=== PATIENT | male | born 1950 ===

== ENCOUNTER → 2016-05-22 | Outpatient (CLI) | payer MEDICARE, OTHER | END | disposition home or self-care (01) | LOC: LABWHC1 12:30 | PROVIDERS: ATTEND Internal Medicine Infectious Disease | DX: Z20.1 Contact with and (suspected) exposure to tuberculosis (principal) | CPT/HCPCS: 36415; 86480 ==

== ENCOUNTER 2019-04-18 20:10 | Inpatient (IN) | payer MEDICARE, OTHER ==
[2019-04-18] MEDS: SODIUM CHLORIDE 0.9% 1,000 ML IV SCH (23:23)
[2019-04-18] MEDS: HEPARIN SODIUM,PORCINE 5,000 UNIT/ML 1 ML VIAL SQ SCH (23:25)
[2019-04-19] MEDS: ATORVASTATIN 10 MG TAB PO SCH (09:16)
[2019-04-19] MEDS: busPIRone HCl 10 MG TAB PO SCH ×2 (09:16→23:49)
[2019-04-19] MEDS: CLOPIDOGREL 75 MG TAB PO SCH (09:16)
[2019-04-19] MEDS: HEPARIN SODIUM,PORCINE 5,000 UNIT/ML 1 ML VIAL SQ SCH ×2 (09:17→17:12)
[2019-04-19 09:25] VITALS: BMI 14.3
[2019-04-19 09:26] LABS: Basophils % (A) 0 %; Eosinophils # (A) 0.1 k/uL (0-0.7); Eosinophils % (A) 2 %; HCT 36.7 % (39.0-53.0); HGB 11.6 gm/dL (13.0-17.5); Lymphocytes % (A) 14 %; MCH 30.1 pg (25.0-35.0); MCHC 31.8 g/dL (31.0-37.0); MCV 94.9 fL (80.0-100.0); Mean Platelet Volume 7.1; Monocytes # (A) 0.4 k/uL (0-1.0); Monocytes % (A) 5 %; Neutrophils # (A) 5.6 k/uL (1.3-7.7); Neutrophils % (A) 78 %; Platelet Count 234 k/uL (150-450); RBC 3.87 m/uL (4.30-5.90); RDW 14.3 % (11.5-15.5); WBC 7.2 k/uL (3.8-10.6)
[2019-04-19] MEDS: OLANZapine 10 MG TAB PO SCH (09:30)
[2019-04-19] MEDS: FLUoxetine HCL 20 MG CAP PO SCH (09:31)
[2019-04-19 09:32] LABS: Albumin 3.2 g/dL (3.5-5.0); Calcium 9.1 mg/dL (8.4-10.2); Potassium 4.5 mmol/L (3.5-5.1); Total Bilirubin 0.7 mg/dL (0.2-1.3); Total Protein 6.4 g/dL (6.3-8.2)
[2019-04-19] MEDS: ATENOLOL 25 MG TAB PO SCH (09:35)
[2019-04-19] MEDS: SODIUM CHLORIDE 0.9% 1,000 ML IV SCH (12:16)
--- NOTE | 2019-04-19 15:39 | XR ---
EXAMINATION TYPE: XR chest 1V portable DATE OF EXAM: 04/19/2019 COMPARISON: None INDICATION: Congestion and weakness TECHNIQUE: Single frontal view of the chest is obtained. FINDINGS: The heart size is normal. There is a patchy right lower lobe infiltrate. Minimal infiltrate is present at the left base. IMPRESSION: 1. Bibasilar infiltrates. Correlate for atelectasis or pneumonia. Follow-up exams can be performed as clinically indicated.
--- NOTE | 2019-04-19 16:27 | US ---
EXAMINATION TYPE: US extremity nonvasc mass RT DATE OF EXAM: 04/19/2019 COMPARISON: NONE CLINICAL HISTORY: Right knee US. Poor historian. Anterior right knee palpable with redness. Area of concern scanned. Cystic appearing lesion with internal debris visualized, nonvascular with i nflammation seen- 2.0 x 2.1 x 0.7 cm IMPRESSION: 1. Soft tissue abnormality within the deep tissues. This appears non walled and could be phlegmon. D iscrete abscess is not identified.
[2019-04-19] MEDS ORDERED: IPRATROPIUM-ALBUTEROL 3 ML NEB INHALATION PRN (17:14)
[2019-04-19] MEDS ORDERED: VANCOMYCIN IV PER PHARMACY 1 EACH MISC MISCELLANE PRN (17:14)
[2019-04-19] MEDS ORDERED: ACETAMINOPHEN TAB 500 MG TAB PO PRN (17:15)
[2019-04-19] MEDS ORDERED: VANCOMYCIN 750 MG in SODIUM CHLORIDE 0.9% 250 ML IVPB ONE (18:00)
[2019-04-19] MEDS: PIPERACILLIN-TAZOBACTAM 3.375 GM in SODIUM CHLORIDE 0.9% 100 ML IVPB SCH (18:29)
[2019-04-19] MEDS: IPRATROPIUM-ALBUTEROL 3 ML NEB INHALATION SCH (20:26)
--- NOTE | 2019-04-19 22:03 | HP ---
HISTORY AND PHYSICAL DATE OF SERVICE: 04/19/2019 CHIEF COMPLAINTS: Weakness as well as change in mental status. HISTORY OF PRESENT ILLNESS: This 68-year-old gentleman with a past medical history of multiple medical problems, including hyperlipidemia and hypertension, being followed by a physician in the [facility], was living in the [facility]. The patient was apparently becoming progressively weak and confused, unable to eat anything, and because of increased symptoms and change in mental status the patient was taken to [facility]. From the [facility] the patient was referred to [facility] as a direct admission. He was admitted for evaluation and treatment. The patient was able to give only a sketchy history. Most of the history was taken from my discussion with staff and review of the chart at this time. The patient does have a skin lesion on the right leg with some right swelling also. Chest x-ray showed bibasilar pneumonia. The ultrasound showed some soft tissue abnormality. Otherwise, some phlegmon and no abscess and no DVT. There is no history of any fever, rigor or chills at this time. PAST MEDICAL HISTORY: 1. History of hypertension. 2. History of hyperlipidemia. 3. History of possible depression. HOME MEDICATIONS: 1. BuSpar 15 mg p.o. b.i.d. 2. Zocor 20 mg p.o. daily. 3. Potassium chloride 10 mEq p.o. daily. 4. Zyprexa 20 mg p.o. daily. 5. Prozac 20 mg p.o. daily. 6. Plavix 75 mg p.o. daily. 7. Tenormin 25 mg p.o. daily. ALLERGIES: NONE. Family history, social history, review of systems could not be taken because of the patient's change in mental status. PHYSICAL EXAMINATION: Patient is conscious, confused. Pulse 61, blood pressure 131/73, respirations 16, temperature 97.4, pulse ox 94% on room air. HEENT: Conjunctivae normal. Oral mucosa moist. NECK: No jugular venous distention. No carotid bruit. No lymph node enlargement. CARDIOVASCULAR SYSTEM: S1, S2 muffled. No S3. No S4. RESPIRATORY SYSTEM: Breath sounds diminished at the bases. A few scattered rhonchi and crackles. Basal crackles also present. ABDOMEN: Soft, non-tender, scaphoid. No mass palpable. LEGS: No edema. No swelling. L NERVOUS SYSTEM: Higher functions as mentioned earlier. Moves all 4 limbs. Mild diffuse weakness. LYMPHATICS: No lymph node palpable in neck, axillae or groin. SKIN: No ulcer, rash, bleeding. JOINTS: No active deforming arthropathy. LABS: Labs at this time show WBC 7.2, hemoglobin 11.6, sodium 144, potassium 4.5, creatinine 1.38. ASSESSMENT: 1. Bibasilar pneumonia, possibly Gram-negative, with possible sepsis, present on admission. 2. Change in mental status, acute metabolic encephalopathy secondary to sepsis. 3. Possible dehydration. 4. Gait dysfunction. 5. Possible cellulitis of the right leg. 6. Severe protein-calorie malnutrition with a body mass index of 14.3. 7. Anemia, normocytic, possibly nutritional. 8. Increased creatinine with possibly acute renal failure, prerenal renal factors, acute tubular necrosis. 9. History of bipolar. RECOMMENDATIONS AND DISCUSSION: In this 68-year-old gentleman who presented with multiple complex medical issues, we will monitor the patient closely, continue the current medications, continue symptomatic treatment. Resume the home medications. I would also recommend broad- spectrum IV antibiotics. Will obtain cultures. I would recommend broad-spectrum IV antibiotics with a combination Zosyn and vancomycin and continue to monitor. PT/OT evaluation, possible ECF rehab. DVT prophylaxis. See orders for further details. Guarded prognosis. Further recommendations to follow. Will monitor electrolyte as well. MMODL / IJN: [id number] /
[2019-04-20] MEDS: HEPARIN SODIUM,PORCINE 5,000 UNIT/ML 1 ML VIAL SQ SCH ×3 (03:11→16:01)
[2019-04-20] MEDS: PIPERACILLIN-TAZOBACTAM 3.375 GM in SODIUM CHLORIDE 0.9% 100 ML IVPB SCH ×2 (03:13→10:35)
[2019-04-20] MEDS: SODIUM CHLORIDE 0.9% 1,000 ML IV SCH ×2 (03:14→16:01)
[2019-04-20] MEDS: VANCOMYCIN 750 MG in SODIUM CHLORIDE 0.9% 250 ML IVPB SCH (06:30)
[2019-04-20] MEDS: IPRATROPIUM-ALBUTEROL 3 ML NEB INHALATION SCH ×3 (07:04→19:37)
[2019-04-20 08:29] LABS: Basophils % (A) 0 %; Eosinophils # (A) 0.1 k/uL (0-0.7); Eosinophils % (A) 1 %; HCT 36.6 % (39.0-53.0); Lymphocytes # (A) 0.9 k/uL (1.0-4.8); Lymphocytes % (A) 8 %; MCH 30.8 pg (25.0-35.0); MCHC 32.7 g/dL (31.0-37.0); MCV 94.3 fL (80.0-100.0); Monocytes # (A) 0.5 k/uL (0-1.0); Monocytes % (A) 4 %; Neutrophils # (A) 9.4 k/uL (1.3-7.7); Neutrophils % (A) 86 %; Platelet Count 286 k/uL (150-450); RBC 3.88 m/uL (4.30-5.90); RDW 14.2 % (11.5-15.5); WBC 10.9 k/uL (3.8-10.6)
[2019-04-20 08:39] LABS: Calcium 9.2 mg/dL (8.4-10.2); Potassium 4.3 mmol/L (3.5-5.1)
[2019-04-20] MEDS: MULTIVITAMINS, THERA 1 EACH TAB PO SCH (10:36)
[2019-04-20] MEDS: FLUoxetine HCL 20 MG CAP PO SCH (10:36)
[2019-04-20] MEDS: busPIRone HCl 10 MG TAB PO SCH ×2 (10:36→22:59)
[2019-04-20] MEDS: CLOPIDOGREL 75 MG TAB PO SCH (10:36)
[2019-04-20] MEDS: OLANZapine 10 MG TAB PO SCH (10:37)
[2019-04-20] MEDS: ATENOLOL 25 MG TAB PO SCH (10:37)
[2019-04-20] MEDS: ATORVASTATIN 10 MG TAB PO SCH (10:37)
--- NOTE | 2019-04-20 14:42 | P.PN ---
Subjective Progress Note Date: 04/20/19 Principal diagnosis: This is a 68-year-old male was recently admitted as a transfer from [facility] for altered mental status, right leg swelling, failure to thrive, and weakness and is being closely monitored. Chest x-ray showed bibasilar pneumonia. Patient had some right knee surrounding skin swelling and redness and was cultured and preliminary showing some leukocytes with gram-positive cocci. Will await culture finalization. Zosyn was discontinued and patient was started on doxycycline oral. Patient currently lives with his brother who cares for him and spoke to the family at length today about possible rehab upon discharge. After speaking with case management, the family would like to bring the patient home and have home care come visit. Objective - Vital Signs Vital signs: Vital Signs Temp 98.6 F 04/20/19 12:14 Pulse 70 04/20/19 13:23 Resp 18 04/20/19 12:14 BP 100/59 04/20/19 12:14 Pulse Ox 98 04/20/19 12:14 Intake & Output 04/19/19 04/20/19 04/20/19 18:59 06:59 18:59 Intake Total 1420 550 50 Balance 1420 550 50 Weight 47.9 kg Intake: Intake, IV Titration 700 550 50 Amount Piperacillin-Tazobactam 3 50 .375 gm In Sodium Chloride 0.9% 100 ml @ 25 mls/hr IVPB Q8H VAZQUEZ Rx#: [id number] Sodium Chloride 0.9% 1, 600 550 000 ml @ 75 mls/hr IV . [id number] VAZQUEZ Rx#:[id number] ceFAZolin 1,000 mg In 100 Sodium Chloride 0.9% 50 ml @ 100 mls/hr IVPB Q8HR VAZQUEZ Rx#:[id number] Oral 720 Other: Voiding Method Urinal Urinal Diaper Diaper # Voids 3 3 - Exam Gen: This is a 68-year-old male sitting up in bed and appears to be in no acute distress. Patient is mildly confused and appears to be his baseline per family HEENT: Head is atraumatic, normocephalic. Pupils equal, round. Sclerae is ani cteric. NECK: Supple. No JVD. No lymphadenopathy. No thyromegaly. LUNGS: diminished breath sounds at the bases with a few scattered rhonchi noted. No intercostal retractions. HEART: Regular rate and rhythm. No murmur. ABDOMEN: Soft, thin, scaphoid, Bowel sounds are present. No masses. No tender ness. EXTREMITIES: No pedal edema. No calf tenderness. right knee medial aspect with redness surrounding a scab noted on exam NEUROLOGICAL: Patient is awake, alert and oriented x 1-2. Cranial nerves 2 through 12 are grossly intact. - Labs CBC & Chem 7: 04/20/19 07:40 04/20/19 07:40 Labs: Abnormal Lab Results - Last 24 Hours (Table) 04/20/19 04/20/19 Range/Units 07:40 07:40 WBC 10.9 H (3.8-10.6) k/uL RBC 3.88 L (4.30-5.90) m/uL Hgb 12.0 L (13.0-17.5) gm/dL Hct 36.6 L (39.0-53.0) % Neutrophils # 9.4 H (1.3-7.7) k/uL Lymphocytes # 0.9 L (1.0-4.8) k/uL Chloride 115 H (98-107) mmol/L BUN 28 H (9-20) mg/dL Creatinine 1.37 H (0.66-1.25) mg/dL Glucose 70 L (74-99) mg/dL Microbiology - Last 24 Hours (Table) 04/20/19 03:30 Anaerobic Culture - Preliminary Knee - Right 04/20/19 03:30 Wound Culture - Preliminary Knee - Right 04/19/19 12:55 Gram Stain - Preliminary Knee - Right Wound Culture - Preliminary Assessment and Plan Assessment: bibasilar pneumonia, possibly gram-negative, with possible sepsis, present on admission Change in mental status, acute metabolic encephalopathy secondary sepsis Possible dehydration Gait dysfunction Possible cellulitis of the right leg severe protein calorie malnutrition with a body mass index of 14.3 Anemia, normocytic, possibly nutritional increased creatinine with possibly acute renal failure, prerenal renal factors, acute tubular necrosis History of bipolar Recommendations and discussion: Recommend continue current medications, management, and symptomatic treatment. IV Zosyn was discontinued and patient was started on doxycycline oral. Patient will continue on Vanco at this time while waiting for wound cultures finalize. Discussed with the family about rehab versus home care and brother who cares for the patient told case management that he would like him to go home with home care. PT/OT following. A prescription for a walker was provided. Will repeat a.m. labs to monitor creatinine. creatinine today is 1.37. Further recommendations to follow. Possible discharge in 24-48 hours.
[2019-04-20] MEDS: DOXYCYCLINE 100 MG CAP PO SCH (22:59)
[2019-04-21] MEDS: HEPARIN SODIUM,PORCINE 5,000 UNIT/ML 1 ML VIAL SQ SCH ×4 (00:18→23:20)
[2019-04-21] MEDS: IPRATROPIUM-ALBUTEROL 3 ML NEB INHALATION SCH ×3 (05:16→21:32)
[2019-04-21] MEDS: VANCOMYCIN 750 MG in SODIUM CHLORIDE 0.9% 250 ML IVPB SCH (06:18)
[2019-04-21 06:56] LABS: Glucose,Whole Blood 71 mg/dL (75-99)
[2019-04-21 09:45] LABS: Basophils % (A) 0 %; Eosinophils # (A) 0.1 k/uL (0-0.7); Eosinophils % (A) 1 %; HCT 35.9 % (39.0-53.0); HGB 11.8 gm/dL (13.0-17.5); Lymphocytes # (A) 0.7 k/uL (1.0-4.8); Lymphocytes % (A) 11 %; MCH 30.9 pg (25.0-35.0); MCV 93.8 fL (80.0-100.0); Mean Platelet Volume 7.2; Monocytes # (A) 0.4 k/uL (0-1.0); Monocytes % (A) 6 %; Neutrophils # (A) 5.4 k/uL (1.3-7.7); Neutrophils % (A) 81 %; Platelet Count 241 k/uL (150-450); RBC 3.83 m/uL (4.30-5.90); RDW 14.1 % (11.5-15.5); WBC 6.6 k/uL (3.8-10.6)
[2019-04-21 10:08] LABS: Calcium 9.3 mg/dL (8.4-10.2); Potassium 4.7 mmol/L (3.5-5.1)
[2019-04-21] MEDS: OLANZapine 10 MG TAB PO SCH (10:44)
[2019-04-21] MEDS: ATORVASTATIN 10 MG TAB PO SCH (10:45)
[2019-04-21] MEDS: CLOPIDOGREL 75 MG TAB PO SCH (10:45)
[2019-04-21] MEDS: ATENOLOL 25 MG TAB PO SCH (10:45)
[2019-04-21] MEDS: FLUoxetine HCL 20 MG CAP PO SCH (10:45)
[2019-04-21] MEDS: busPIRone HCl 10 MG TAB PO SCH ×2 (10:45→20:08)
[2019-04-21] MEDS: MULTIVITAMINS, THERA 1 EACH TAB PO SCH (10:46)
[2019-04-21] MEDS: DOXYCYCLINE 100 MG CAP PO SCH (10:55)
[2019-04-21] MEDS: SODIUM CHLORIDE 0.9% 1,000 ML IV SCH ×2 (11:49→15:13)
--- NOTE | 2019-04-21 14:58 | P.PN ---
Subjective Progress Note Date: 04/21/19 Principal diagnosis: This is a 68-year-old male was recently admitted as a transfer from [facility] for altered mental status, right leg swelling, failure to thrive, and weakness and is being closely monitored. Chest x-ray showed bibasilar pneumonia. Patient had some right knee surrounding skin swelling and redness and was cultured and preliminary showing some leukocytes with gram-positive cocci. Will await culture finalization. Zosyn was discontinued and patient was started on doxycycline oral. Patient currently lives with his brother who cares for him and spoke to the family at length today about possible rehab upon discharge. After speaking with case management, the family would like to bring the patient home and have home care come visit. 04/21/2019 Patient is sitting up in bed in no acute distress currently receiving a breathing treatment. Patient continues to sound congested and only coughs when being told to with no expectoration of phlegm. Family continues to be persistent about taking him home and having home care follow once the patient is discharged. Creatinine is slightly improved today and is 1.32. Preliminary wound culture of the right knee shows presumptive staph aureus and will await finalization. Patient is being maintained on IV Vanco and oral doxycycline at this time. Objective - Vital Signs Vital signs: Vital Signs Temp 97.5 F L 04/21/19 11:39 Pulse 51 L 04/21/19 11:39 Resp 22 04/21/19 11:39 BP 109/56 04/21/19 11:39 Pulse Ox 97 04/21/19 11:39 Intake & Output 04/20/19 04/21/19 04/21/19 18:59 06:59 18:59 Intake Total 50 600 Balance 50 600 Intake: Intake, IV Titration 50 600 Amount Piperacillin-Tazobactam 3 50 .375 gm In Sodium Chloride 0.9% 100 ml @ 25 mls/hr IVPB Q8H VAZQUEZ Rx#: [id number] Sodium Chloride 0.9% 1, 600 000 ml @ 75 mls/hr IV . [id number] VAZQUEZ Rx#:[id number] Other: Voiding Method Urinal Urinal Urinal Diaper Diaper Diaper # Voids 2 - Exam Gen: This is a 68-year-old male sitting up in bed and appears to be in no acute distress. Patient is mildly confused with a flat affect and appears to be his baseline per family HEENT: Head is atraumatic, normocephalic. Pupils equal, round. Sclerae is anicteric. NECK: Supple. No JVD. No lymphadenopathy. No thyromegaly. LUNGS: diminished breath sounds at the bases with a few scattered rhonchi noted. No intercostal retractions. HEART: Regular rate and rhythm. No murmur. ABDOMEN: Soft, thin, scaphoid, Bowel sounds are present. No masses. No tenderness. EXTREMITIES: No pedal edema. No calf tenderness. right knee medial aspect with redness and some serous drainage surrounding a scab noted on exam NEUROLOGICAL: Patient is awake, alert and oriented x 1-2. Cranial nerves 2 through 12 are grossly intact. - Labs CBC & Chem 7: 04/21/19 08:54 04/21/19 08:54 Labs: Abnormal Lab Results - Last 24 Hours (Table) 04/21/19 04/21/19 04/21/19 Range/Units 06:55 08:54 08:54 RBC 3.83 L (4.30-5.90) m/uL Hgb 11.8 L (13.0-17.5) gm/dL Hct 35.9 L (39.0-53.0) % Lymphocytes # 0.7 L (1.0-4.8) k/uL Chloride 111 H (98-107) mmol/L BUN 22 H (9-20) mg/dL Creatinine 1.32 H (0.66-1.25) mg/dL POC Glucose (mg/dL) 71 L (75-99) mg/dL Microbiology - Last 24 Hours (Table) 04/20/19 03:30 Gram Stain - Preliminary Knee - Right Wound Culture - Preliminary Presumptive Staph aureus 04/19/19 18:18 Blood Culture - Preliminary Blood No Growth after 24 hours 04/20/19 03:30 Anaerobic Culture - Preliminary Knee - Right Assessment and Plan Assessment: bibasilar pneumonia, possibly gram-negative, with possible sepsis, present on admission Change in mental status, acute metabolic encephalopathy secondary sepsis Possible dehydration Gait dysfunction Possible cellulitis of the right leg severe protein calorie malnutrition with a body mass index of 14.3 Anemia, normocytic, possibly nutritional increased creatinine with possibly acute renal failure, prerenal renal factors, acute tubular necrosis History of bipolar Recommendations and discussion: Recommend continue current medications, management, and symptomatic treatment. Awaiting for wound cultures of the right knee to finalize. PT/OT following. Will repeat a.m. labs to monitor creatinine. creatinine today is 1.32. Further recommendations to follow. Possible discharge in 24-48 hours.
[2019-04-22 02:18] LABS: Glucose,Whole Blood 113 mg/dL (75-99)
[2019-04-22] MEDS: SODIUM CHLORIDE 0.9% 1,000 ML IV SCH (05:30)
[2019-04-22] MEDS: VANCOMYCIN 750 MG in SODIUM CHLORIDE 0.9% 250 ML IVPB SCH (05:31)
[2019-04-22 06:58] LABS: Basophils % (A) 0 %; Eosinophils # (A) 0.1 k/uL (0-0.7); Eosinophils % (A) 2 %; HCT 32.1 % (39.0-53.0); HGB 10.7 gm/dL (13.0-17.5); Lymphocytes # (A) 0.7 k/uL (1.0-4.8); Lymphocytes % (A) 12 %; MCH 31.3 pg (25.0-35.0); MCHC 33.4 g/dL (31.0-37.0); MCV 93.8 fL (80.0-100.0); Mean Platelet Volume 7.4; Monocytes # (A) 0.4 k/uL (0-1.0); Monocytes % (A) 6 %; Neutrophils # (A) 4.6 k/uL (1.3-7.7); Neutrophils % (A) 78 %; Platelet Count 227 k/uL (150-450); RBC 3.42 m/uL (4.30-5.90); RDW 14.1 % (11.5-15.5); WBC 5.9 k/uL (3.8-10.6)
[2019-04-22 07:12] LABS: Calcium 8.8 mg/dL (8.4-10.2); Potassium 4.1 mmol/L (3.5-5.1)
[2019-04-22] MEDS: IPRATROPIUM-ALBUTEROL 3 ML NEB INHALATION SCH ×2 (09:04→16:01)
[2019-04-22] MEDS: CLOPIDOGREL 75 MG TAB PO SCH (09:56)
[2019-04-22] MEDS: MULTIVITAMINS, THERA 1 EACH TAB PO SCH (09:56)
[2019-04-22] MEDS: HEPARIN SODIUM,PORCINE 5,000 UNIT/ML 1 ML VIAL SQ SCH ×2 (09:57→16:08)
[2019-04-22] MEDS: FLUoxetine HCL 20 MG CAP PO SCH (09:57)
[2019-04-22] MEDS: ATORVASTATIN 10 MG TAB PO SCH (09:57)
[2019-04-22] MEDS: busPIRone HCl 10 MG TAB PO SCH (09:57)
[2019-04-22] MEDS: OLANZapine 10 MG TAB PO SCH (09:57)
[2019-04-22] MEDS: ATENOLOL 25 MG TAB PO SCH (09:57)
[2019-04-22 11:48] VITALS: BP 111/62; RESP 16; TEMP 97.6
--- NOTE | 2019-04-22 14:40 | P.DS ---
Providers Date of admission: 04/18/19 23:05 Attending physician: Irene Maguire Primary care physician: Stated None Hospital Course: 68-year-old male was recently admitted as a transfer from [facility] for altered mental status, right leg swelling, failure to thrive, and weakness and is being closely monitored. Chest x-ray showed bibasilar pneumonia. Patient had some right knee surrounding skin swelling and redness and was cultured and preliminary showing some leukocytes with gram-positive cocci. Will await culture finalization. Zosyn was discontinued and patient was started on doxycycline oral. Patient currently lives with his brother who cares for him and spoke to the family at length today about possible rehab upon discharge. After speaking with case management, the family would like to bring the patient home and have home care come visit. 04/21/2019 Patient is sitting up in bed in no acute distress currently receiving a breathing treatment. Patient continues to sound congested and only coughs when being told to with no expectoration of phlegm. Family continues to be persistent about taking him home and having home care follow once the patient is discharged. Creatinine is slightly improved today and is 1.32. Preliminary wou nd culture of the right knee shows presumptive staph aureus and will await finalization. Patient is being maintained on IV Vanco and oral doxycycline at this time. 04/22/2019 Patient has emesis and the wound cultures patient will be discharged on Keflex. Patient will be discharged home with home care. Patient appears to have moderate dementia. Patient really creatinine improved to 1.11. There is no evidence of pneumonia PHYSICAL EXAMINATION: GENERAL: The patient is alert and oriented x3, not in any acute distress. Well developed, well nourished. HEENT: Pupils are round and equally reacting to light. EOMI. No scleral icterus. No conjunctival pallor. Normocephalic, atraumatic. No pharyngeal erythema. No thyromegaly. CARDIOVASCULAR: S1 and S2 present. No murmurs, rubs, or gallops. PULMONARY: Chest is clear to auscultation, no wheezing or crackles. ABDOMEN: Soft, nontender, nondistended, normoactive bowel sounds. No palpable organomegaly. MUSCULOSKELETAL: No joint swelling or deformity. EXTREMITIES: No cyanosis, clubbing, or pedal edema. NEUROLOGICAL: Gross neurological examination did not reveal any focal deficits. SKIN: No rashes. Gen: This is a 68-year-old male sitting up in bed and appears to be in no acute distress. Patient is not confused today HEENT: Head is atraumatic, normocephalic. Pupils equal, round. Sclerae is anicteric. NECK: Supple. No JVD. No lymphadenopathy. No thyromegaly. LUNGS: diminished breath sounds at the bases with a few scattered rhonchi noted. No intercostal retractions. HEART: Regular rate and rhythm. No murmur. ABDOMEN: Soft, thin, scaphoid, Bowel sounds are present. No masses. No tenderness. EXTREMITIES: No pedal edema. No calf tenderness. right knee medial aspect with redness and some serous drainage surrounding a scab noted on exam NEUROLOGICAL: Patient is awake, alert and oriented x 1-2. Cranial nerves 2 through 12 are grossly intact. Assessment and Plan Assessment: No evidence of pneumonia patient does have a superficial wound the left leg in the left knee area which is positive for MSSA for which patient will be discharged on Keflex patient has atelectasis Change in mental status, acute metabolic encephalopathy acute renal failure Possible dehydration and acute renal failure improved now patient may have some chronic kidney disease stage III etiology unknown Gait dysfunction cellulitis of the right leg Moderate protein calorie malnutrition with a body mass index of 14.3 Anemia, normocytic, possibly nutritional History of bipolar Plan - Discharge Summary New Discharge Prescriptions: New Cephalexin [Keflex] 500 mg PO Q8HR #21 cap Continue Simvastatin [Zocor] 20 mg PO DAILY FLUoxetine HCL [PROzac] 20 mg PO DAILY busPIRone HCl [Buspar] 15 mg PO BID Clopidogrel [Plavix] 75 mg PO DAILY Atenolol [Tenormin] 25 mg PO DAILY OLANZapine [ZyPREXA] 20 mg PO DAILY Potassium Chloride 10 meq PO DAILY Discharge Medication List Atenolol [Tenormin] 25 mg PO DAILY 04/18/19 [History] Clopidogrel [Plavix] 75 mg PO DAILY 04/18/19 [History] FLUoxetine HCL [PROzac] 20 mg PO DAILY 04/18/19 [History] OLANZapine [ZyPREXA] 20 mg PO DAILY 04/18/19 [History] Potassium Chloride 10 meq PO DAILY 04/18/19 [History] Simvastatin [Zocor] 20 mg PO DAILY 04/18/19 [History] busPIRone HCl [Buspar] 15 mg PO BID 04/18/19 [History] Cephalexin [Keflex] 500 mg PO Q8HR #21 cap 04/22/19 [Rx] Follow up Appointment(s)/Referral(s): [facility] [NON-STAFF] - 1 Week Marbin Lees MD [REFERRING] - 1 Week (Patient to call Dr. Lees's office Wednesday morning to schedule follow up appointment. The office is closed at time of discharge. ) Patient Instructions/Handouts: Cephalexin (By mouth), Failure to Thrive (DC), Weakness (DC) Discharge Disposition: HOME SELF-CARE
[2019-04-22 16:13] VITALS: PULSE 64
[2019-04-22] MEDS ORDERED: VANCOMYCIN 750 MG in SODIUM CHLORIDE 0.9% 250 ML IVPB SCH (22:00)
[2019-04-24] MEDS ORDERED: VANCOMYCIN TROUGH DUE 1 EACH MISC MISCELLANE ONE (05:00)
== END 2019-04-22 17:45 | disposition home health service (06) | DRG 602 ==
LOC: 5NMEDONC 23:05
PROVIDERS: ADMIT Internal Medicine; ATTEND Internal Medicine
DX: L03.115 Cellulitis of right lower limb (principal); E43 Unspecified severe protein-calorie malnutrition; G93.41 Metabolic encephalopathy; N17.9 Acute kidney failure, unspecified; Z68.1 Body mass index [BMI] 19.9 or less, adult; J98.11 Atelectasis; R62.7 Adult failure to thrive; F03.90 Unspecified dementia, unspecified severity, without behavioral disturbance, psychotic disturbance, mood disturbance, and anxiety; E86.0 Dehydration; N18.3 Chronic kidney disease, stage 3 (moderate); S80.911A Unspecified superficial injury of right knee, initial encounter; I12.9 Hypertensive chronic kidney disease with stage 1 through stage 4 chronic kidney disease, or unspecified chronic kidney disease; B95.61 Methicillin susceptible Staphylococcus aureus infection as the cause of diseases classified elsewhere; E78.5 Hyperlipidemia, unspecified; D64.9 Anemia, unspecified; F31.9 Bipolar disorder, unspecified; R26.9 Unspecified abnormalities of gait and mobility; Z79.02 Long term (current) use of antithrombotics/antiplatelets; Z79.899 Other long term (current) drug therapy; Z71.3 Dietary counseling and surveillance
CPT/HCPCS: 71045; 80048; 80053; 85025; 87040; 87070; 87075; 87077; 87186; 87205; 94640

== ENCOUNTER 2020-05-29 16:34 | Inpatient (IN) | payer MEDICARE, OTHER ==
[2020-05-29] MEDS ORDERED: SODIUM CHLORIDE 0.9% 500 ML 500 ML IV ONE (16:52)
[2020-05-29] MEDS ORDERED: NALOXONE 0.4 MG/ML 1 ML VIAL IV PRN (17:33)
--- NOTE | 2020-05-29 17:39 | ED ---
General Adult HPI - General Chief complaint: Altered Mental Status Stated complaint: ams Time Seen by Provider: 05/29/20 16:37 Source: patient, EMS, RN notes reviewed, old records reviewed Mode of arrival: EMS Limitations: no limitations - History of Present Illness Initial comments: 76-year-old male history of schizoaffective disorder presenting for evaluation of altered mental status. Patient was transferred from outside hospital for both neurology and psychiatry evaluation. Patient is alert and oriented 2 he has no complaints, he had seen his psychiatrist on an outpatient basis and had some medication adjusted. Uncertain what this medication was. He was taken to outside emergency department for evaluation at the request of his brother who does live with the patient. Patient denies fever. Denies headache. Denies nausea vomiting or diarrhea. No physical complaints. - Related Data Home Medications Medication Instructions Recorded Confirmed Clopidogrel [Plavix] 75 mg PO DAILY 04/18/19 04/19/19 FLUoxetine HCL [PROzac] 20 mg PO DAILY 04/18/19 04/19/19 OLANZapine [ZyPREXA] 20 mg PO DAILY 04/18/19 04/19/19 Potassium Chloride 10 meq PO DAILY 04/18/19 04/19/19 Simvastatin [Zocor] 20 mg PO DAILY 04/18/19 04/19/19 atenoloL [Tenormin] 25 mg PO DAILY 04/18/19 04/19/19 busPIRone HCl [Buspar] 15 mg PO BID 04/18/19 04/19/19 Previous Rx's Medication Instructions Recorded Cephalexin [Keflex] 500 mg PO Q8HR #21 cap 04/22/19 Allergies Allergy/AdvReac Type Severity Reaction Status Date / Time No Known Allergies Allergy Verified 05/29/20 16:45 Review of Systems ROS Statement: Those systems with pertinent positive or pertinent negative responses have been documented in the HPI. ROS Other: All systems not noted in ROS Statement are negative. Past Medical History Past Medical History: No Reported History, Coronary Artery Disease (CAD), COPD, GERD/Reflux, Pneumonia History of Any Multi-Drug Resistant Organisms: None Reported Past Surgical History: Unable to Obtain Past Anesthesia/Blood Transfusion Reactions: No Reported Reaction Past Psychological History: Bipolar, Schizoaffective Disorder, Schizophrenia Smoking Status: Never smoker Past Alcohol Use History: None Reported Past Drug Use History: None Reported - Past Family History Father History Unknown: Yes General Exam Limitations: no limitations General appearance: alert, in no apparent distress Head exam: Present: atraumatic, normocephalic Eye exam: Present: normal appearance, PERRL ENT exam: Present: mucous membranes dry Neck exam: Present: normal inspection. Absent: tenderness, meningismus Respiratory exam: Present: normal lung sounds bilaterally. Absent: respiratory distress Cardiovascular Exam: Present: regular rate, normal rhythm GI/Abdominal exam: Present: soft. Absent: distended, tenderness Extremities exam: Present: normal inspection, normal capillary refill. Absent: pedal edema, calf tenderness Neurological exam: Present: alert. Absent: oriented X3 (2), motor sensory deficit Psychiatric exam: Present: flat affect Skin exam: Present: warm, dry, intact. Absent: cyanosis, diaphoretic Course Vital Signs 05/29/20 16:35 Temperature 96 F L Pulse Rate 60 Respiratory 18 Rate Blood Pressure 129/82 O2 Sat by Pulse 100 Oximetry Medical Decision Making - Medical Decision Making Prior to transfer patient had CT, chest x-ray, laboratory testing. Head CT was negative for intracranial hemorrhage or mass effect, chest x-ray negative for focal pneumonia or acute findings. Patient had return CBC showed a normal white blood cell count, stable hemoglobin, normal white lites, creatinine 1.5. He started on IV hydration as he does appear quite dehydrated. He will be admitted to internal medicine with both neurology and psychiatry on consult. - Lab Data Lab Results 05/29/20 Range/Units 17:01 Ammonia <9 (<30) umol/L Disposition Clinical Impression: Altered mental status, Dehydration Disposition: ADMITTED IP TO THIS [facility] Condition: Stable Is patient prescribed a controlled substance at d/c from ED?: No Referrals: None,Stated [Primary Care Provider] - 1-2 days Decision to Admit Reason: Admit from EC Decision Date: 05/29/20 Decision Time: 17:38
[2020-05-29] MEDS ORDERED: ACETAMINOPHEN TAB 325 MG TAB PO PRN (17:48)
--- NOTE | 2020-05-29 17:51 | P.HPIM ---
History of Present Illness H&P Date: 05/29/20 Chief Complaint: Altered mental status This is a 69-year-old male with past medical history noted below significant for underlying bipolar/schizoaffective disorder who was transferred from [facility] [place] for psychiatry evaluation. Patient was seen and evaluated by me in the ER. He is awake and alert. He is oriented to himself and to the place. He was unable to provide any significant medical history. I spoke to his uvchyhz-[id number], and DURABLE POWER OF VP INFORMATION TECHNOLOGY, Chirag Petitfilemon on the phone to clarify the reason why the patient was brought into the emergency room. He told me that patient is usually functional and able to take care of his daily activity. He denied that the patient has any underlying dementia but said that the patient hasn't been acting like his normal self for the past week. He reported that patient was talking ''nonsense''throughout the day and also wandering plan to go outside multiple times. He usually follow-up at [facility] he was seen 3 days ago and one of his medication doses was increased that Chirag does not know which one it was. He said that he dropped off her medication list at [facility] [place] but is not available for me to review at this time. Patient otherwise does not have any complaints. He denies any shortness of breath or cough. No dysuria or frequency. No fevers or chills. Lab work at [place] was mostly within acceptable range. Ammonia level was normal here. Patient had a computed tomography scan of the head showing no acute intracranial findings. X-ray was unremarkable. He was transferred to our hospital for psychiatry evaluation. Review of Systems Review of system: 14 points review of systems were obtained and were negative except to what were mentioned in the HPI. Past Medical History Past Medical History: No Reported History, Coronary Artery Disease (CAD), COPD, GERD/Reflux, Pneumonia History of Any Multi-Drug Resistant Organisms: None Reported Past Surgical History: Unable to Obtain Past Anesthesia/Blood Transfusion Reactions: No Reported Reaction Past Psychological History: Bipolar, Schizoaffective Disorder, Schizophrenia Smoking Status: Never smoker Past Alcohol Use History: None Reported Past Drug Use History: None Reported - Past Family History Father History Unknown: Yes Medications and Allergies Home Medications Medication Instructions Recorded Confirmed Type Clopidogrel [Plavix] 75 mg PO DAILY 04/18/19 05/29/20 History OLANZapine [ZyPREXA] 20 mg PO HS 04/18/19 05/29/20 History Atorvastatin Calcium [Lipitor] 20 mg PO HS 05/29/20 05/29/20 History Colchicine 0.6 mg PO DAILY 05/29/20 05/29/20 History Divalproex ER [Depakote ER] 500 mg PO BID 05/29/20 05/29/20 History Gabapentin [Neurontin] 100 mg PO HS 05/29/20 05/29/20 History Midodrine HCl [ProAmatine] 10 mg PO TID 05/29/20 05/29/20 History OLANZapine [ZyPREXA] 5 mg PO DAILY 05/29/20 05/29/20 History Allergies Allergy/AdvReac Type Severity Reaction Status Date / Time No Known Allergies Allergy Verified 05/29/20 17:45 Physical Exam Vitals: Vital Signs Temp Pulse Resp BP Pulse Ox 05/29/20 16:35 96 F L 60 18 129/82 100 Intake and Output 05/29/20 05/29/20 05/29/20 06:59 14:59 22:59 Other: Weight 81.647 kg General: The patient is awake and alert, in no distress Eye: there is normal conjunctiva bilaterally. Neck: The neck is supple, there is no JVD. Cardiovascular: Normal S1-S2, no S3-S4, no murmurs. Respiratory: Lungs clear to auscultation bilaterally Gastrointestinal: Abdomen is soft, nontender Musculoskeletal: There is no pedal edema. Neurological:. Speech is normal. Skin: Skin is warm and dry Assessment and Plan Assessment: 1. Altered mental status with behavioral changes, may be attributed to exacerbation of underlying bipolar/schizoaffective disorder. No metabolic derangement noted. Electrolytes, CBC, and ammonia level within normal/acceptable range. Chest x-ray and computed tomography scan of the head with no acute findings. I would obtain a UA. Neurology and psychiatry consulted by ED provider. 2. Chronic medical problems: Coronary artery disease, hypertension, hyperlipidemia, bipolar disorder/schizoaffective disorder 3. DVT prophylaxis with subcu heparin 4. CODE STATUS: Patient is full code. Discussed with his DURABLE POWER OF VP INFORMATION TECHNOLOGY chirag Jackson over the phone
[2020-05-29] MEDS: SODIUM CHLORIDE 0.9% 1,000 ML IV SCH (17:55)
[2020-05-29] MEDS ORDERED: GABAPENTIN 100 MG CAP PO SCH (21:00)
[2020-05-29 21:09] LABS: Appearance,Urine Cloudy (Clear); Bacteria,Urine Occasional /hpf; Bilirubin,Urine Negative (Negative); Blood,Urine Negative (Negative); Color,Urine Light Yellow; Glucose,Urine (UA) Negative (Negative); Ketones,Urine Negative (Negative); Leukocyte Esterase,Urine Large (Negative); Mucus,Urine Rare /hpf; Nitrite,Urine Positive (Negative); PH, Urine 6.5 (5.0-8.0); Protein,Urine Negative (Negative); RBC,Urine <1 /hpf (0-5); Specific Gravity,Urine 1.011 (1.001-1.035); Urobilinogen,Urine <2.0 mg/dL (<2.0); WBC,Urine 27 /hpf (0-5)
[2020-05-29] MEDS: DIVALPROEX ER 500 MG TAB.ER.24H PO SCH (21:16)
[2020-05-29] MEDS: ATORVASTATIN 20 MG TAB PO SCH (21:16)
[2020-05-29] MEDS: HEPARIN SODIUM,PORCINE 5,000 UNIT/ML 1 ML VIAL SQ SCH (21:17)
[2020-05-29] MEDS: OLANZapine 10 MG TAB PO SCH (21:17)
[2020-05-30] MEDS: SODIUM CHLORIDE 0.9% 1,000 ML IV SCH (06:20)
[2020-05-30 07:06] LABS: Anisocytosis Slight; Basophils % (A) 1 %; Eosinophils # (A) 0.1 k/uL (0-0.7); Eosinophils % (A) 3 %; HCT 34.7 % (39.0-53.0); HGB 11.7 gm/dL (13.0-17.5); Lymphocytes # (A) 1.3 k/uL (1.0-4.8); Lymphocytes % (A) 39 %; MCH 29.4 pg (25.0-35.0); MCHC 33.7 g/dL (31.0-37.0); MCV 87.3 fL (80.0-100.0); Mean Platelet Volume 6.9; Monocytes # (A) 0.2 k/uL (0-1.0); Monocytes % (A) 7 %; Neutrophils # (A) 1.7 k/uL (1.3-7.7); Neutrophils % (A) 49 %; Platelet Count 174 k/uL (150-450); RBC 3.98 m/uL (4.30-5.90); RDW 16.4 % (11.5-15.5); WBC 3.4 k/uL (3.8-10.6)
[2020-05-30] MEDS ORDERED: OLANZapine 5 MG TAB PO SCH (09:00)
[2020-05-30] MEDS: CLOPIDOGREL 75 MG TAB PO SCH (09:30)
[2020-05-30] MEDS: DIVALPROEX ER 500 MG TAB.ER.24H PO SCH ×2 (09:31→20:15)
[2020-05-30] MEDS: COLCHICINE 0.6 MG EACH PO SCH (09:33)
[2020-05-30] MEDS: HEPARIN SODIUM,PORCINE 5,000 UNIT/ML 1 ML VIAL SQ SCH ×2 (09:35→20:15)
[2020-05-30 09:39] LABS: African American GFR (CKD) 70.1 (60.0-200.0); Albumin 3.6 g/dL (3.80-4.90); Albumin/Globulin Ratio 2.25 (1.60-3.17); Anion Gap 5.9 mmol/L (4.00-12.00); BUN/Creat Ratio 17.5 Ratio (12.00-20.00); Calcium 8.9 mg/dL (8.7-10.3); Carbon Dioxide 27.1 mmol/L (21.6-31.8); Globulin 1.6 g/dL (1.6-3.3); Magnesium 1.6 mg/dL (1.5-2.4); Non-African American GFR(CKD) 60.5 (60.0-200.0); Total Bilirubin 0.4 mg/dL (0.2-1.2); Total Protein 5.2 g/dL (6.2-8.2)
[2020-05-30] MEDS: MIDODRINE 5 MG TAB PO SCH ×3 (09:44→17:45)
--- NOTE | 2020-05-30 12:39 | P.CNNES ---
History of Present Illness Consult date: 05/30/20 Requesting physician: Jason Fuchs Reason for Consult: Altered mental status History of Present Illness: Patient is a 69-year-old male came to the hospital yesterday at 4:34 PM by ambulance, as a transfer from outside hospital for neurological and psychiatric evaluation. Patient does have a history of schizoaffective disorder. Apparently patient lives with his brother, who took the patient to the hospital for evaluation for altered mental status. Patient at present does not know why he came to the hospital. Patient initially was taken to [facility] by his [id number] whom he lives with. It was reported that patient is acting different the last few days and last time he acted distally was he was diagnosed with pneumonia. What he noticed that his different is the patient trying to walk outside to the back door. They have set up alarm on the dose to catch him and he does that. Patient had an appointment with his psychiatrist the day prior in [facility] and some medication changes were done. Patient also has been visiting nurse comes to his home and help him on a regular basis. Patient has not complained of any pain or any fever or chills or cough. No vomiting or diarrhea. Vital signs on arrival blood pressure 129/82, pulse rate 60, temperature 96.0. EKG shows sinus bradycardia with fusion complexes. Blood test shows WBC 3.4 hemoglobin 11.7 platelets 174. Chem-20 with mildly decreased glucose 65, normal hepatic panel. UA shows large amount of leukocyte esterase. 27 WBCs, occasional bacteria. Ammonia is normal <9. Outside records showed computed tomography scan of the head which was normal. Chest x-ray negative for focal pneumonia or acute findings. CBC was normal. Normal electrolytes, WBC, creatinine 1.5. Patient apparently takes Plavix 75 mg, Zyprexa 20 mg at bedtime and 5 mg every morning, gabapentin 100 mg at bedtime, Depakote 500 mg twice a day, midodrine 10 mg 3 times a day, colchicine 0.6 mg daily and Lipitor 20 mg. Chest x-ray performed outside hospital showed no significant cardiopulmonary abnormality. CT head without contrast revealed no acute intracranial abnormality. No ventricular megaly. Visualized sinuses are unremarkable. No fluid level. Fluid present in the right mastoid air cells which is unchanged. Troponin was negative on grandson metabolic panel negative CBC normal O Dylon testing negative. EKG shows sinus rhythm. TSH normal 1.42. Patient states that he does walk without any device. Review of Systems Patient has some congestion, some cough. Denies headache problem with the vision hoarseness or throat. Denies any abdominal pain nausea vomiting diarrhea. Patient has weight loss. Generalized weakness. Denies any focal symptoms. All other review of systems noncontributory. Past Medical History Past Medical History: No Reported History, Coronary Artery Disease (CAD), COPD, GERD/Reflux, Pneumonia History of Any Multi-Drug Resistant Organisms: None Reported Past Surgical History: Unable to Obtain Past Anesthesia/Blood Transfusion Reactions: No Reported Reaction Past Psychological History: Bipolar, Schizoaffective Disorder, Schizophrenia Smoking Status: Unknown if ever smoked Past Alcohol Use History: None Reported Past Drug Use History: None Reported - Past Family History Father History Unknown: Yes Medications and Allergies Home Medications Medication Instructions Recorded Confirmed Type Clopidogrel [Plavix] 75 mg PO DAILY 04/18/19 05/29/20 History OLANZapine [ZyPREXA] 20 mg PO HS 04/18/19 05/29/20 History Atorvastatin Calcium [Lipitor] 20 mg PO HS 05/29/20 05/29/20 History Colchicine 0.6 mg PO DAILY 05/29/20 05/29/20 History Divalproex ER [Depakote ER] 500 mg PO BID 05/29/20 05/29/20 History Gabapentin [Neurontin] 100 mg PO HS 05/29/20 05/29/20 History Midodrine HCl [ProAmatine] 10 mg PO TID 05/29/20 05/29/20 History OLANZapine [ZyPREXA] 5 mg PO DAILY 05/29/20 05/29/20 History Allergies Allergy/AdvReac Type Severity Reaction Status Date / Time No Known Allergies Allergy Verified 05/29/20 17:45 Physical Examination - Vital Signs Vital Signs: Vital Signs Temp Pulse Pulse Resp BP BP Pulse Ox 05/30/20 08:35 97.7 F 67 16 136/78 93 L 05/30/20 02:00 97.6 F 64 16 131/66 95 05/29/20 20:50 20 05/29/20 20:00 96.9 F L 63 20 138/80 97 05/29/20 19:49 63 20 148/82 98 05/29/20 18:49 98 18 146/84 98 05/29/20 16:35 96 F L 60 18 129/82 100 Intake and Output 05/29/20 05/30/20 05/30/20 22:59 06:59 14:59 Intake Total 600 Output Total 500 280 Balance 100 -280 Intake: Intake, IV Titration 600 Amount Sodium Chloride 0.9% 1, 600 000 ml @ 75 mls/hr IV . [id number] Rx#:[id number] Output: Urine 500 280 Other: Voiding Method Urinal Weight 81.647 kg On examination patient is an elderly male, in no acute distress. Patient is very thin build. He is slightly short of breath. Patient is alert and awake. He knows his name, states is 70 years old, he knows that he is in [facility] in [facility] and that it is May 2020 and name of the current president Mr. Montes. Patient's mouth is dry. He is edentulous. He speaks slowly, but was comprehensible. Patient sometimes starts making squeaking noise. He started making those noise when he had an urge to pass urine. No aphasia or dysarthria. On cranial examination pupils are round and reactive to light, visual watson are full on confrontation, extraocular muscles are intact with no nystagmus. Face is symmetric, tongue protrudes the midline. Palatal elevation sensation normal. Hearing and shoulder shrug normal. Facial sensation normal. On muscle strength testing there is no pronator drift and the strength is normal in arms and legs distally and proximally. Reflexes are 1+ and plantars are downgoing. Sensory touch is equal. No ataxia for jyiztr-ix-xkho testing, tone and bulk of muscles normal. Gait deferred. On general examination there is no obvious bruit, S1 and S2 audible, abdomen soft nontender, chest is clear. No peripheral edema. Results - Laboratory Findings CBC and BMP: 05/30/20 06:07 05/30/20 06:07 Abnormal Lab Findings: Abnormal Labs 05/29/20 05/30/20 05/30/20 20:44 06:07 06:07 WBC 3.4 L RBC 3.98 L Hgb 11.7 L Hct 34.7 L RDW 16.4 H Chloride 110 H Glucose 65 L ALT 9 L Total Protein 5.2 L Albumin 3.60 L Ur Leukocyte Esterase Large H Urine WBC 27 H Urine Bacteria Occasional H Urine Mucus Rare H Assessment and Plan Assessment: * Altered mental status, possible metabolic encephalopathy. Rule out infectious process. Rule out medication side effects. Exam is nonfocal. * Schizoaffective disorder Plan: * Agree with checking Depakote level, folate, TSH and B12. Ammonia is normal. * Psychiatry and the case, may need adjustment of psych medications. * No other neurological workup indicated.
--- NOTE | 2020-05-30 13:39 | P.CN ---
Psychiatric Consult - . Consult date: 05/30/20 Consult:: IDENTIFYING DATA: This patient is a single, retired, 69-year-old male with a significant history of schizoaffective disorder who was admitted for altered mental status. HISTORY OF PRESENT ILLNESS: The patient presented to the hospital on 05/29/2020 after being transferred from an outside hospital for a neurology and psychiatry evaluation. The patient is unable to provide any significant history in much information was obtained through his power of immigration attorney/hnxelsz-da-sft Chirag Clarke. The patient's kafqbgj-[id number]-ugw states that the patient began acting differently and presenting his altered over the past few days. He states that prior to this admission, the patient has been talking and able to feed himself and address his ADLs. He states that currently the patient is "talking out of his head" and unable to care for himself. He reports that the patient has had a similar episode 2 years ago and was brought to the hospital where was determined that he had pneumonia. He states that once the pneumonia was treated the patient returned back to his baseline. Currently, the patient is able to respond appropriately to questions. He is not reporting any suicidal or homicidal ideation, intention, and/or plan. He is not reporting any auditory or visual hallucinations. He is denying any paranoia or delusions. He is currently alert and oriented to person, place and time. The patient's xnywdav-sz-tep states that the patient has been in adherent with his medications. He reports that the patient has not had any prior attempts at suicide or has any access to firearms or other weapons. PAST PSYCHIATRIC HISTORY: Patient has a a history of schizophrenia and bipolar disorder. Patient is currently on a home regimen which includes Zyprexa 20 g by mouth at bedtime, Zyprexa 5 mg by mouth daily, Neurontin 100 mg daily at bedtime, and Depakote 500 mg twice a day. The patient currently follows up with [facility]. Unable to determine if there has been prior suicide attempts at this time. The patient has had prior inpatient psychiatric admissions, but the brother in law reports that his last time was when he was 17 years old. PAST MEDICAL HISTORY: Coronary artery disease, COPD, GERD, pneumonia ALLERGIES: NO KNOWN DRUG ALLERGIES CHEMICAL DEPENDENCY HISTORY: Patient does smoke a few cigarettes per day as per the rrkrupc-lc-ajv. The uhibbek-ab-qqx denies that the patient drinks or uses any illicit drugs. FAMILY PSYCHIATRIC/SUBSTANCE USE HISTORY: Unknown at this time. SOCIAL HISTORY: The patient has 2 sisters and a brother. He currently lives with his eunbfum-yr-hsb who is his power of immigration attorney as well. He does have a history of legal problems and was in [facility] in his late teens. He is unmarried and has no children. MENTAL STATUS EXAM: General Appearance: Patient appears to be stated age is alert, pleasant, and cooperative. Patient appears to have fair hygiene and grooming wearing hospital gown with fair eye contact. Behavior: Patient is calmly lying in bed without any agitated behavior. He is wishing to stand up and go for a walk. Speech: Patient's speech is fluent and nonpressured. Speech is soft in volume and at times difficult to comprehend as the patient tends to drool. Mood/Affect: Patient reports his mood is "okay." Affect appears congruent and euthymic. Suicidality/Homicidality: The patient is currently denying any suicidal or homicidal ideation, intention, and/or plan. Perceptions: Patient is denying any auditory or visual hallucinations. Though content/process: There is no evidence of any delusional thought content and thought process is linear and goal-directed. Memory and concentration: AOX3, grossly intact for the purposes of this session. Judgment and insight: Appears fair at this time. IMPRESSIONS: Altered mental status, rule out infectious process versus polypharmacy versus metabolic encephalopathy Schizoaffective disorder PLAN: -At this time patient DOES NOT meet criteria for inpatient psychiatric admission. -Delirium precautions recommended with patient including - avoiding use of narcotics and ENGLISH LANGUAGE LEARNER TUTOR sedatives, limit anticholinergic medications when possible, frequent re-orientation, minimize use of restraints, open window shades during the day and close them at night -EKG reviewed, sinus bradycardia with a QTc of 411 ms. -Would recommend the following medication changes/additions: We will continue Zyprexa 20 mg by mouth at bedtime. We will discontinue the patient's morning Zyprexa as well as his nightly gabapentin in order to limit polypharmacy. We'll continue Depakote. Depakote level ordered. -TSH, B12, folate also ordered. -Will continue to follow along 05/30/20 13:25
[2020-05-30 15:08] LABS: Folate, Serum 8.5 ng/mL; Valproic Acid (Depakene) 49.9 ug/mL (50.0-100.0)
[2020-05-30] MEDS: ATORVASTATIN 20 MG TAB PO SCH (20:14)
[2020-05-30] MEDS: OLANZapine 10 MG TAB PO SCH (20:15)
[2020-05-31] MEDS: MIDODRINE 5 MG TAB PO SCH ×3 (08:32→17:01)
[2020-05-31] MEDS: COLCHICINE 0.6 MG EACH PO SCH (08:33)
[2020-05-31] MEDS: CLOPIDOGREL 75 MG TAB PO SCH (08:34)
[2020-05-31] MEDS: HEPARIN SODIUM,PORCINE 5,000 UNIT/ML 1 ML VIAL SQ SCH ×2 (08:35→20:07)
[2020-05-31] MEDS: DIVALPROEX ER 500 MG TAB.ER.24H PO SCH ×2 (08:35→20:07)
--- NOTE | 2020-05-31 10:12 | P.PN ---
Subjective Progress Note Date: 05/30/20 Patient is awake and alert today. He is answering simple yes or no questions. His speech is not very clear as of yet. Objective - Vital Signs Vital signs: Vital Signs Temp 97.5 F L 05/30/20 13:42 Pulse 95 05/30/20 13:42 Resp 20 05/30/20 13:42 BP 124/73 05/30/20 13:42 Pulse Ox 91 L 05/30/20 13:42 Intake & Output 05/29/20 05/30/20 05/30/20 18:59 06:59 18:59 Intake Total 600 Output Total 500 500 Balance 100 -500 Weight 81.647 kg 81.647 kg Intake: Intake, IV Titration 600 Amount Sodium Chloride 0.9% 1, 600 000 ml @ 75 mls/hr IV . [id number] Rx#:[id number] Output: Urine 500 500 Other: Voiding Method Urinal Urinal Diaper - Exam General: The patient is awake and alert, in no distress Eye: there is normal conjunctiva bilaterally. Neck: The neck is supple, there is no JVD. Cardiovascular: Normal S1-S2, no S3-S4, no murmurs. Respiratory: Lungs clear to auscultation bilaterally Gastrointestinal: Abdomen is soft, nontender Musculoskeletal: There is no pedal edema. Neurological:. Speech is normal. Skin: Skin is warm and dry - Labs CBC & Chem 7: 05/30/20 06:07 05/30/20 06:07 Labs: Abnormal Lab Results - Last 24 Hours (Table) 05/29/20 05/30/20 05/30/20 Range/Units 20:44 06:07 06:07 WBC 3.4 L (3.8-10.6) k/uL RBC 3.98 L (4.30-5.90) m/uL Hgb 11.7 L (13.0-17.5) gm/dL Hct 34.7 L (39.0-53.0) % RDW 16.4 H (11.5-15.5) % Chloride 110 H (96-109) mmol/L Glucose 65 L (70-110) mg/dL ALT 9 L (10-49) U/L Total Protein 5.2 L (6.2-8.2) g/dL Albumin 3.60 L (3.80-4.90) g/dL Ur Leukocyte Esterase Large H (Negative) Urine WBC 27 H (0-5) /hpf Urine Bacteria Occasional H (None) /hpf Urine Mucus Rare H (None) /hpf Valproic Acid (50.0-100.0) ug/mL 05/30/20 Range/Units 06:07 WBC (3.8-10.6) k/uL RBC (4.30-5.90) m/uL Hgb (13.0-17.5) gm/dL Hct (39.0-53.0) % RDW (11.5-15.5) % Chloride (96-109) mmol/L Glucose (70-110) mg/dL ALT (10-49) U/L Total Protein (6.2-8.2) g/dL Albumin (3.80-4.90) g/dL Ur Leukocyte Esterase (Negative) Urine WBC (0-5) /hpf Urine Bacteria (None) /hpf Urine Mucus (None) /hpf Valproic Acid 49.9 L (50.0-100.0) ug/mL Microbiology - Last 24 Hours (Table) 05/29/20 20:44 Urine Culture - Preliminary Urine,Voided Assessment and Plan Assessment: 1. Altered mental status with behavioral changes, possibly metabolic or secondary to polypharmacy. Patient has an underlying UTI. Electrolytes, CBC, and ammonia level within normal/acceptable range. Chest x-ray and computed tomography scan of the head with no acute findings. Neurology and psychiatry consulted, appreciate recommendation 2. Uncomplicated UTI, on IV ceftriaxone awaiting urine culture 3. History of bipolar/schizoaffective disorder, with concerns about polypharmacy. Patient was seen and evaluated by psychiatry. Continue Zyprexa 20 mg at bedtime. Discontinue Zyprexa morning dose. Discontinue gabapentin at night. Depakote level within acceptable range 4. Chronic medical problems: Coronary artery disease, hypertension, hyperlipidemia, bipolar disorder/schizoaffective disorder 5. DVT prophylaxis with subcu heparin 6. CODE STATUS: Patient is full code. Discussed with his DURABLE POWER OF BIOMEDICAL ENGINEERING SUPERVISOR jonathan Jackson over the phone
--- NOTE | 2020-05-31 13:37 | P.PN ---
Progress Note - Text Progress Note Date: 05/31/20 Interval History: Patient was seen resting in bed but was arousable and agreeable to talk with this provider. The patient's speech continues to be somewhat slurred. He is not reporting any suicidal or homicidal ideation, intention, and/or plan. He is not reporting any auditory or visualizations. He is denying any paranoia or delusions. As per discussion with the patient's nurse, the patient has been more arousable, directable, and not displaying any agitated or bizarre behaviors. The patient has been adherent with his medications and appears to be tolerating them well. He is currently receiving antibiotics for a urinary tract infection. Mental Status Exam: General Appearance: Patient appears to be stated age is alert, directable, and cooperative. Fair hygiene and grooming. Behavior: Patient is calmly seated without any agitated behavior. Speech: Patient's speech is fluent and nonpressured. Speech is soft in volume and at times appears to be somewhat slurred. Responds in short responses. Mood/Affect: Mood is "doing okay," affect is congruent and constricted. Suicidality/Homicidality: Patient is not reporting any suicidal or homicidal ideation, intention, or plan. Perceptions: Patient is not endorsing any auditory or visual hallucinations. Though content/process: There is no evidence of any delusional thought content and thought process is linear and goal-directed. Memory and concentration: Patient is alert and oriented to person and place but not to time. Concentration appears to be grossly intact for the purposes of this session. Judgment and insight: Improving mildly Assessment Urinary tract infection Altered mental status, appears to be resolving Schizoaffective disorder Plan: -At this time patient DOES NOT meet criteria for inpatient psychiatric admission. -Delirium precautions recommended with patient including - avoiding use of narcotics and GRAZING AIDE sedatives, limit anticholinergic medications when possible, frequent re-orientation, minimize use of restraints, open window shades during the day and close them at night -EKG reviewed, sinus bradycardia with a QTc of 411 ms. -Would recommend the following medication changes/additions: We will continue the patient's current prescribe psychotropic regimen: Depakote ER 500 mg by mouth twice a day, Zyprexa 20 mg by mouth at bedtime -Depakote level 49.9, TSH, B12, folate within normal limits. -Psychiatry will sign off at this time. Thank you for this consult. Please contact us if there is any questions or reconsult us if necessary.
--- NOTE | 2020-05-31 13:39 | P.PN ---
Subjective Progress Note Date: 05/31/20 Patient is doing better today. Nursing staff informed me that he was up to the bathroom earlier with minimal assistance. Objective - Vital Signs Vital signs: Vital Signs Temp 97.4 F L 05/31/20 12:55 Pulse 71 05/31/20 12:55 Resp 20 05/31/20 12:55 BP 97/60 05/31/20 12:56 Pulse Ox 98 05/31/20 12:55 Intake & Output 05/30/20 05/31/20 05/31/20 18:59 06:59 18:59 Intake Total 200 600 Output Total 500 600 210 Balance -300 0 -210 Intake: Intake, IV Titration 200 Amount Sodium Chloride 0.9% 1, 150 000 ml @ 75 mls/hr IV . [id number] [facility] Rx#:[id number] cefTRIAXone 1 gm In 50 Sodium Chloride 0.9% 50 ml @ 100 mls/hr IVPB Q24HR [facility] Rx#:[id number] Oral 600 Output: Urine 500 600 210 Other: Voiding Method Toilet Toilet Urinal Urinal Urinal # Voids 2 - Exam General: The patient is awake and alert, in no distress Eye: there is normal conjunctiva bilaterally. Neck: The neck is supple, there is no JVD. Cardiovascular: Normal S1-S2, no S3-S4, no murmurs. Respiratory: Lungs clear to auscultation bilaterally Gastrointestinal: Abdomen is soft, nontender Musculoskeletal: There is no pedal edema. Neurological:. Speech is normal. Skin: Skin is warm and dry - Labs CBC & Chem 7: 05/30/20 06:07 05/30/20 06:07 Labs: Abnormal Lab Results - Last 24 Hours (Table) 05/30/20 Range/Units 06:07 Valproic Acid 49.9 L (50.0-100.0) ug/mL Microbiology - Last 24 Hours (Table) 05/29/20 20:44 Urine Culture - Preliminary Urine,Voided Gram Neg Bacilli Assessment and Plan Assessment: 1. Altered mental status with behavioral changes, possibly metabolic or secondary to polypharmacy. Patient has an underlying UTI. Electrolytes, CBC, and ammonia level within normal/acceptable range. Chest x-ray and computed tomography scan of the head with no acute findings. Neurology and psychiatry consulted, appreciate recommendation. TSH, vitamin B12, and folate within normal range 2. Uncomplicated UTI, on IV ceftriaxone awaiting urine culture to finalize 3. History of bipolar/schizoaffective disorder, with concerns about polypharmacy. Patient was seen and evaluated by psychiatry. Continue Zyprexa 20 mg at bedtime. Discontinue Zyprexa morning dose. Discontinue gabapentin at night. Depakote level within acceptable range 4. Chronic medical problems: Coronary artery disease, hypertension, hyperlipidemia, bipolar disorder/schizoaffective disorder 5. DVT prophylaxis with subcu heparin 6. CODE STATUS: Patient is full code. Discussed with his [employer] jonathan Jackson over the phone Anticipate discharge home tomorrow
--- NOTE | 2020-05-31 16:59 | P.PN ---
Subjective Progress Note Date: 05/31/20 Patient was seen for a follow-up. Patient laying comfortably in the bed. Slightly somnolent. Snores. He offers no complaints denies headache. Objective - Vital Signs Vital signs: Vital Signs Temp 97.8 F 05/31/20 15:58 Pulse 60 05/31/20 15:58 Resp 20 05/31/20 15:58 BP 110/67 05/31/20 15:58 Pulse Ox 96 05/31/20 15:58 Intake & Output 05/30/20 05/31/20 05/31/20 18:59 06:59 18:59 Intake Total 200 600 Output Total 500 600 410 Balance -300 0 -410 Intake: Intake, IV Titration 200 Amount Sodium Chloride 0.9% 1, 150 000 ml @ 75 mls/hr IV . [id number] [facility] Rx#:[id number] cefTRIAXone 1 gm In 50 Sodium Chloride 0.9% 50 ml @ 100 mls/hr IVPB Q24HR [facility] Rx#:[id number] Oral 600 Output: Urine 500 600 410 Other: Voiding Method Toilet Toilet Urinal Urinal Urinal # Voids 1 - Exam Patient is somnolent, groggy. He does wake up. She speaks with nasal tone, edentulous therefore pronunciation somewhat difficult to understand patient states it is June 2002 and that he is in [facility]. He knows name of the president. Attention span, concentration is diminished. Fund of knowledge limited. On cranial examination pupils are round and reacting, visual field appears full face is symmetric and tongue protrudes the midline. Muscle strength is normal in the arms and legs. Reflexes symmetric and plantars downgoing. - Labs CBC & Chem 7: 05/30/20 06:07 05/30/20 06:07 Labs: Microbiology - Last 24 Hours (Table) 05/29/20 20:44 Urine Culture - Preliminary Urine,Voided Gram Neg Bacilli Assessment and Plan Assessment: * Altered mental status, possible delirium/metabolic encephalopathy. Rule out infectious process. Rule out medication side effects. Exam is nonfocal. * UTI * Schizoaffective disorder Plan: * Depakote level 49.9, folate 8.5, TSH 1.3 and B12 603. Ammonia is normal <9. * Patient's urine has grown > 100,000 gram-negative bacilli. ID pending. Patient's altered mental status likely from UTI. * Psychiatry and the case, may need adjustment of psych medications. * No other neurological workup indicated. * Neurology will sign off. Please reconsult neurology if any concerns.
[2020-05-31] MEDS: FOLIC ACID 1 MG TAB PO SCH (18:07)
[2020-05-31 19:20] VITALS: RESP 16
[2020-05-31] MEDS: ATORVASTATIN 20 MG TAB PO SCH (20:07)
[2020-05-31] MEDS: OLANZapine 10 MG TAB PO SCH (20:07)
[2020-06-01 04:38] VITALS: BP 113/69; PULSE 67; TEMP 98.2
[2020-06-01] MEDS: FOLIC ACID 1 MG TAB PO SCH (08:34)
[2020-06-01] MEDS: CLOPIDOGREL 75 MG TAB PO SCH (08:34)
[2020-06-01] MEDS: DIVALPROEX ER 500 MG TAB.ER.24H PO SCH (08:34)
[2020-06-01] MEDS: MIDODRINE 5 MG TAB PO SCH (08:34)
[2020-06-01] MEDS: COLCHICINE 0.6 MG EACH PO SCH (08:34)
[2020-06-01] MEDS: HEPARIN SODIUM,PORCINE 5,000 UNIT/ML 1 ML VIAL SQ SCH (08:34)
--- NOTE | 2020-06-01 09:25 | P.DS ---
Providers Date of admission: 05/31/20 08:36 Expected date of discharge: 06/01/20 Attending physician: Dm Burleson Consults: 05/29/20 17:34 Consult Physician Routine Consulting Provider: Newton Juarez Consult Reason/Comments: Psychiatric evaluation Do you want consulting provider notified?: Yes Consult Physician Routine Consulting Provider: Collette Costa Consult Reason/Comments: AMS Do you want consulting provider notified?: Yes Primary care physician: Stated None Hospital Course: This is a 69-year-old male with past medical history noted below who presented to the emergency room as a transfer from [facility] for further evaluation of confusion. Patient was admitted to the hospital for further management of his medical problems noted below. 1. Altered mental status with behavioral changes, possibly metabolic or secondary to polypharmacy. Patient has an underlying UTI. Electrolytes, CBC, and ammonia level within normal/acceptable range. Chest x-ray and computed tomography scan of the head with no acute findings. Neurology and psychiatry consulted, appreciate recommendation. TSH, vitamin B12, and folate within normal range 2. Uncomplicated UTI, started on IV ceftriaxone. Urine culture grew E. coli. We will finish antibiotic course with Keflex. 3. History of bipolar/schizoaffective disorder, with concerns about polypharmacy. Patient was seen and evaluated by psychiatry. Continue Zyprexa 20 mg at bedtime. Discontinue Zyprexa morning dose. Discontinue gabapentin at night. Depakote level within acceptable range 4. Chronic medical problems: Coronary artery disease, hypertension, hyperlipidemia, bipolar disorder/schizoaffective disorder Patient will be discharged home in a stable condition. His [id number] is his primary caregiver Patient Condition at Discharge: Stable Plan - Discharge Summary Discharge Rx Participant: No New Discharge Prescriptions: New Folic Acid 1 mg PO DAILY #30 tab Cephalexin [Keflex] 500 mg PO Q6HR 3 Days #12 cap Continue Clopidogrel [Plavix] 75 mg PO DAILY OLANZapine [ZyPREXA] 20 mg PO HS Divalproex ER [Depakote ER] 500 mg PO BID Midodrine HCl [ProAmatine] 10 mg PO TID Colchicine 0.6 mg PO DAILY Atorvastatin Calcium [Lipitor] 20 mg PO HS Discontinued Gabapentin [Neurontin] 100 mg PO HS OLANZapine [ZyPREXA] 5 mg PO DAILY Discharge Medication List Clopidogrel [Plavix] 75 mg PO DAILY 04/18/19 [History] OLANZapine [ZyPREXA] 20 mg PO HS 04/18/19 [History] Atorvastatin Calcium [Lipitor] 20 mg PO HS 05/29/20 [History] Colchicine 0.6 mg PO DAILY 05/29/20 [History] Divalproex ER [Depakote ER] 500 mg PO BID 05/29/20 [History] Midodrine HCl [ProAmatine] 10 mg PO TID 05/29/20 [History] Cephalexin [Keflex] 500 mg PO Q6HR 3 Days #12 cap 06/01/20 [Rx] Folic Acid 1 mg PO DAILY #30 tab 06/01/20 [Rx] Follow up Appointment(s)/Referral(s): None,Stated [Primary Care Provider] - 1-2 days Discharge Disposition: HOME SELF-CARE
== END 2020-06-01 12:43 | disposition home or self-care (01) | DRG 92 ==
LOC: EC 16:34 → 5NMEDONC 17:49 → OBSVTOIN 05-31 08:36
PROVIDERS: ADMIT Internal Medicine; ATTEND Internal Medicine
DX: G92 Toxic encephalopathy (principal); N39.0 Urinary tract infection, site not specified; T50.915A Adverse effect of multiple unspecified drugs, medicaments and biological substances, initial encounter; B96.20 Unspecified Escherichia coli [E. coli] as the cause of diseases classified elsewhere; E78.5 Hyperlipidemia, unspecified; E86.0 Dehydration; F25.9 Schizoaffective disorder, unspecified; F31.9 Bipolar disorder, unspecified; I10 Essential (primary) hypertension; I25.10 Atherosclerotic heart disease of native coronary artery without angina pectoris; Z79.02 Long term (current) use of antithrombotics/antiplatelets; Z79.899 Other long term (current) drug therapy; Z87.01 Personal history of pneumonia (recurrent); Z20.822 Contact with and (suspected) exposure to COVID-19
CPT/HCPCS: 36415; 80053; 80164; 81001; 82140; 82607; 82746; 83735; 84443; 85025; 87077; 87086; 87186; 93005; 96360; 96361; 99285

== ENCOUNTER 2021-04-05 11:09 | Observation (INO) | payer MEDICARE, OTHER ==
[2021-04-05 11:20] LABS: Glucose,Whole Blood 95 mg/dL (75-99)
[2021-04-05] MEDS ORDERED: SODIUM CHLORIDE 0.9% 500 ML 500 ML IV STA (11:24)
[2021-04-05 11:55] LABS: Basophils % (A) 1 %; Eosinophils # (A) 0.1 k/uL (0-0.7); Eosinophils % (A) 2 %; HCT 38.5 % (39.0-53.0); HGB 13.1 gm/dL (13.0-17.5); Lymphocytes # (A) 0.8 k/uL (1.0-4.8); Lymphocytes % (A) 23 %; MCH 32.4 pg (25.0-35.0); MCHC 34.2 g/dL (31.0-37.0); Mean Platelet Volume 7.8; Monocytes # (A) 0.2 k/uL (0-1.0); Monocytes % (A) 7 %; Neutrophils # (A) 2.4 k/uL (1.3-7.7); Neutrophils % (A) 66 %; Platelet Count 149 k/uL (150-450); Poikilocytosis Slight; RBC 4.05 m/uL (4.30-5.90); RDW 15.4 % (11.5-15.5); WBC 3.6 k/uL (3.8-10.6)
--- NOTE | 2021-04-05 11:55 | ED ---
General Adult HPI - General Chief complaint: Neuro Symptoms/Deficit Stated complaint: Possible Stroke Time Seen by Provider: 04/05/21 11:15 Source: patient, EMS, RN notes reviewed, old records reviewed Mode of arrival: EMS Limitations: no limitations - History of Present Illness Initial comments: This is a 70-year-old male who presents emergency department via EMS for shortness of breath however the patient had some slurred muffled speech EMS was wondering if the patient possibly had a stroke. Patient himself was able to count to 5 day he stated his speech sounded exactly how it always does. Patient did not complain of any numbness or weakness. Patient complained of shortness of breath. Patient did not have any chest pain or palpitations. Patient denies any recent fever chills or cough. Patient denied abdominal pain patient denies nausea vomiting diarrhea. No one else is with the patient said no further history is available. - Related Data Home Medications Medication Instructions Recorded Confirmed Clopidogrel [Plavix] 75 mg PO DAILY 04/18/19 04/05/21 Atorvastatin Calcium [Lipitor] 20 mg PO HS 05/29/20 04/05/21 Divalproex ER [Depakote ER] 500 mg PO BID 05/29/20 04/05/21 Midodrine HCl [ProAmatine] 10 mg PO TID 05/29/20 04/05/21 Ferrous Sulfate [Feosol] 325 mg PO DAILY 04/05/21 04/05/21 OLANZapine [OLANZapine Odt] 5 mg PO DAILY 04/05/21 04/05/21 OLANZapine [OLANZapine Odt] 20 mg PO HS 04/05/21 04/05/21 Previous Rx's Medication Instructions Recorded Folic Acid 1 mg PO DAILY #30 tab 06/01/20 Allergies Allergy/AdvReac Type Severity Reaction Status Date / Time No Known Allergies Allergy Verified 04/05/21 12:39 Review of Systems ROS Statement: Those systems with pertinent positive or pertinent negative responses have been documented in the HPI. ROS Other: All systems not noted in ROS Statement are negative. Past Medical History Past Medical History: No Reported History, Coronary Artery Disease (CAD), COPD, GERD/Reflux, Pneumonia History of Any Multi-Drug Resistant Organisms: None Reported Past Surgical History: Unable to Obtain Past Anesthesia/Blood Transfusion Reactions: No Reported Reaction Past Psychological History: Bipolar, Schizoaffective Disorder, Schizophrenia Smoking Status: Current some day smoker Past Alcohol Use History: None Reported Past Drug Use History: None Reported - Past Family History Father History Unknown: Yes General Exam - General Exam Comments Initial Comments: GENERAL: Patient is well-developed and well-nourished. Patient is nontoxic and well- hydrated and is in mild distress. Patient was oxygenating at 98%. Patient has a healing scalp abrasion and the occipital region, previous fall ENT: Neck is soft and supple. No significant lymphadenopathy is noted. Oropharynx is clear. Moist mucous membranes. Neck has full range of motion without eliciting any pain. EYES: The sclera were anicteric and conjunctiva were pink and moist. Extraocular movements were intact and pupils were equal round and reactive to light. Eyelids were unremarkable. PULMONARY: Unlabored respirations. Good breath sounds bilaterally. No audible rales rhonchi or wheezing was noted. CARDIOVASCULAR: There is a regular rate and rhythm without any murmurs gallops or rubs. ABDOMEN: Soft and nontender with normal bowel sounds. SKIN: Skin is clear with no lesions or rashes and otherwise unremarkable. NEUROLOGIC: Patient is alert and oriented x3. Cranial nerves II through XII are grossly intact. Motor and sensory are also intact. Normal speech, volume and content. Symmetrical smile. Cerebellar exam grossly intac finger to nose bilaterally MUSCULOSKELETAL: Normal extremities with adequate strength and full range of motion. LYMPHATICS: No significant lymphadenopathy is noted PSYCHIATRIC: Normal psychiatric evaluation. . Limitations: no limitations Course Vital Signs 04/05/21 04/05/21 04/05/21 11:12 13:46 14:28 Temperature 97.9 F Pulse Rate 60 53 L 56 L Respiratory 19 16 16 Rate Blood Pressure 120/86 132/77 128/83 O2 Sat by Pulse 97 99 100 Oximetry Medical Decision Making - Medical Decision Making CT of the brain shows no acute abnormality. Chest x-ray shows no acute abnormality. Patient's NIH is 0 throughout the patient's ED stay. I spoke with Dr. Maguire he agreed to admit the patient admitted the patient I consult the neurology EKG shows sinus bradycardia at 53 bpm RI interval 252 QRS is 82 QT interval 440 QTC is 420. Patient's EKG shows no ST segment elevation or depression. - Lab Data Result diagrams: 04/05/21 11:28 04/05/21 11:28 Lab Results 04/05/21 04/05/2104/05/21 Range/Units 11:18 11:28 11:28 WBC 3.6 L (3.8-10.6) k/uL RBC 4.05 L (4.30-5.90) m/uL Hgb 13.1 (13.0-17.5) gm/dL Hct 38.5 L (39.0-53.0) % MCV 95.0 (80.0-100.0) fL MCH 32.4 (25.0-35.0) pg MCHC 34.2 (31.0-37.0) g/dL RDW 15.4 (11.5-15.5) % Plt Count 149 L (150-450) k/uL MPV 7.8 Neutrophils % 66 % Lymphocytes % 23 % Monocytes % 7 % Eosinophils % 2 % Basophils % 1 % Neutrophils # 2.4 (1.3-7.7) k/uL Lymphocytes # 0.8 L (1.0-4.8) k/uL Monocytes # 0.2 (0-1.0) k/uL Eosinophils # 0.1 (0-0.7) k/uL Basophils # 0.0 (0-0.2) k/uL Poikilocytosis Slight PT 10.5 (9.0-12.0) sec INR 1.0 (<1.2) APTT 34.3 H (22.0-30.0) sec D-Dimer 0.47 (<0.60) mg/L FEU Sodium (137-145) mmol/L Potassium (3.5-5.1) mmol/L Chloride (98-107) mmol/L Carbon Dioxide (22-30) mmol/L Anion Gap mmol/L BUN (9-20) mg/dL Creatinine (0.66-1.25) mg/dL Est GFR (CKD-EPI)AfAm (>60 ml/min/1.73 sqM) Est GFR (CKD-EPI)NonAf (>60 ml/min/1.73 sqM) Glucose (74-99) mg/dL POC Glucose (mg/dL) 95 (75-99) mg/dL POC Glu Php Web Developer ID Leelee Smallwood Calcium (8.4-10.2) mg/dL Total Bilirubin (0.2-1.3) mg/dL AST (17-59) U/L ALT (4-49) U/L Alkaline Phosphatase (38-126) U/L Troponin I (0.000-0.034) ng/mL Total Protein (6.3-8.2) g/dL Albumin (3.5-5.0) g/dL 04/05/21 04/05/21 Range/Units 11:28 11:28 WBC (3.8-10.6) k/uL RBC (4.30-5.90) m/uL Hgb (13.0-17.5) gm/dL Hct (39.0-53.0) % MCV (80.0-100.0) fL MCH (25.0-35.0) pg MCHC (31.0-37.0) g/dL RDW (11.5-15.5) % Plt Count (150-450) k/uL MPV Neutrophils % % Lymphocytes % % Monocytes % % Eosinophils % % Basophils % % Neutrophils # (1.3-7.7) k/uL Lymphocytes # (1.0-4.8) k/uL Monocytes # (0-1.0) k/uL Eosinophils # (0-0.7) k/uL Basophils # (0-0.2) k/uL Poikilocytosis PT (9.0-12.0) sec INR (<1.2) APTT (22.0-30.0) sec D-Dimer (<0.60) mg/L FEU Sodium 143 (137-145) mmol/L Potassium 4.7 (3.5-5.1) mmol/L Chloride 108 H (98-107) mmol/L Carbon Dioxide 29 (22-30) mmol/L Anion Gap 6 mmol/L BUN 27 H (9-20) mg/dL Creatinine 1.29 H (0.66-1.25) mg/dL Est GFR (CKD-EPI)AfAm 64 (>60 ml/min/1.73 sqM) Est GFR (CKD-EPI)NonAf 55 (>60 ml/min/1.73 sqM) Glucose 103 H (74-99) mg/dL POC Glucose (mg/dL) (75-99) mg/dL POC Glu Php Web Developer ID Calcium 9.0 (8.4-10.2) mg/dL Total Bilirubin 0.3 (0.2-1.3) mg/dL AST 30 (17-59) U/L ALT 18 (4-49) U/L Alkaline Phosphatase 70 (38-126) U/L Troponin I <0.012 (0.000-0.034) ng/mL Total Protein 6.5 (6.3-8.2) g/dL Albumin 3.3 L (3.5-5.0) g/dL Disposition Clinical Impression: Multiple falls, Dyspnea Disposition: ADMITTED IP TO THIS HOSP Time of Disposition: 14:11
--- NOTE | 2021-04-05 12:07 | XR ---
EXAMINATION TYPE: XR chest 2V DATE OF EXAM: 04/05/2021 COMPARISON: 04/19/19 HISTORY: SOB TECHNIQUE: Frontal and lateral views of the chest are obtained. FINDINGS: There is no focal air space opacity. There are small bilat effusions. No pneumothorax see n. The cardiac silhouette size is within normal limits. The osseous structures are intact. IMPRESSION: Small bilat pleural effusions
--- NOTE | 2021-04-05 12:10 | CT ---
EXAMINATION TYPE: CT brain wo con DATE OF EXAM: 04/05/2021 COMPARISON: 05/09/11 HISTORY: Neuro deficit, acute, code stroke suspected CT DLP: 1245.4 mGycm Automated exposure control for dose reduction was used. FINDINGS: There is no acute bleed or mass effect. CSF spaces within normal; limits. Orbits and sinuses within normal limits IMPRESSION: No acute bleed or mass effect
[2021-04-05 12:20] LABS: Albumin 3.3 g/dL (3.5-5.0); Potassium 4.7 mmol/L (3.5-5.1); Total Bilirubin 0.3 mg/dL (0.2-1.3); Total Protein 6.5 g/dL (6.3-8.2)
[2021-04-05 12:31] LABS: Partial Thromboplastin Time 34.3 sec (22.0-30.0); Prothrombin Time 10.5 sec (9.0-12.0)
[2021-04-05] MEDS ORDERED: SODIUM CHLORIDE 0.9% 1,000 ML IV ONE (14:12)
--- NOTE | 2021-04-05 16:51 | P.HPIM ---
History of Present Illness Patient is a pleasant 68-year-old male with extensive smoking history was brought in by caregiver who is his [id number] because of concerns of slurred speech although slurred speech was not evident when he came to ER and only las kendra for a few minutes. Patient and made to score was 0. Patient has extensive smoking history presently smokes 1 pack per of cigarettes per day. Patient is dependent on ADLs and IADLs. Patient doesn't have any fever chills chest x-ray showed mild bilateral pleural effusions. Patient creatinine is 1.29 which she appears to be his baseline from historical data. Patient mental status is at his baseline. REVIEW OF SYSTEMS: CONSTITUTIONAL: No fever, no malaise, no fatigue. HEENT: No recent visual problems or hearing problems. Denied any sore throat. CARDIOVASCULAR: No chest pain, orthopnea, PND, no palpitations, no syncope. PULMONARY: No shortness of breath, no cough, no hemoptysis. GASTROINTESTINAL: No diarrhea, no nausea, no vomiting, no abdominal pain. NEUROLOGICAL: No headaches, no weakness, no numbness. HEMATOLOGICAL: Denies any bleeding or petechiae. GENITOURINARY: Denies any burning micturition, frequency, or urgency. MUSCULOSKELETAL/RHEUMATOLOGICAL: Denies any joint pain, swelling, or any muscle pain. ENDOCRINE: Denies any polyuria or polydipsia. The rest of the 14-point review of systems is negative. PHYSICAL EXAMINATION: GENERAL: The patient is alert and oriented x3, not in any acute distress. Well developed, well nourished. HEENT: Pupils are round and equally reacting to light. EOMI. No scleral icterus. No conjunctival pallor. Normocephalic, atraumatic. No pharyngeal erythema. No thyromegaly. CARDIOVASCULAR: S1 and S2 present. No murmurs, rubs, or gallops. PULMONARY: She is bilateral rhonchi ABDOMEN: Soft, nontender, nondistended, normoactive bowel sounds. No palpable organomegaly. MUSCULOSKELETAL: No joint swelling or deformity. EXTREMITIES: No cyanosis, clubbing, or pedal edema. NEUROLOGICAL: Gross neurological examination did not reveal any focal deficits. SKIN: No rashes. Assessment and plan 1 slurred speech will rule out TIA neurology was consulted. -Bronchitis for which patient was started on azithromycin and inhalational treatments -Extensive nicotine use: Counseling was provided -Generalized deconditioning multiple falls physical therapy and occupational therapy evaluation History of coronary artery disease -Gastroesophageal reflux disease -Schizoaffective disorder DVT prophylaxis: Subcutaneous heparin Past Medical History Past Medical History: No Reported History, Coronary Artery Disease (CAD), COPD, GERD/Reflux, Pneumonia History of Any Multi-Drug Resistant Organisms: None Reported Past Surgical History: Unable to Obtain Past Anesthesia/Blood Transfusion Reactions: No Reported Reaction Past Psychological History: Bipolar, Schizoaffective Disorder, Schizophrenia Smoking Status: Current some day smoker Past Alcohol Use History: None Reported Past Drug Use History: None Reported - Past Family History Father History Unknown: Yes Medications and Allergies Home Medications Medication Instructions Recorded Confirmed Type Clopidogrel [Plavix] 75 mg PO DAILY 04/18/19 04/05/21 History Atorvastatin Calcium [Lipitor] 20 mg PO HS 05/29/20 04/05/21 History Divalproex ER [Depakote ER] 500 mg PO BID 05/29/20 04/05/21 History Midodrine HCl [ProAmatine] 10 mg PO TID 05/29/20 04/05/21 History Folic Acid 1 mg PO DAILY #30 tab 06/01/20 04/05/21 Rx Ferrous Sulfate [Feosol] 325 mg PO DAILY 04/05/21 04/05/21 History OLANZapine [OLANZapine Odt] 5 mg PO DAILY 04/05/21 04/05/21 History OLANZapine [OLANZapine Odt] 20 mg PO HS 04/05/21 04/05/21 History Allergies Allergy/AdvReac Type Severity Reaction Status Date / Time No Known Allergies Allergy Verified 04/05/21 12:39 Physical Exam Vitals: Vital Signs Temp Pulse Resp BP Pulse Ox 04/05/21 14:28 56 L 16 128/83 100 04/05/21 13:46 53 L 16 132/77 99 04/05/21 11:12 97.9 F 60 19 120/86 97 Intake and Output 04/05/21 04/05/21 04/05/21 06:59 14:59 22:59 Other: Weight 68.039 kg Results CBC & Chem 7: 04/05/21 11:28 04/05/21 11:28 Labs: Abnormal Lab Results - Last 24 Hours (Table) 04/05/21 04/05/21 04/05/21 Range/Units 11:28 11:28 11:28 WBC 3.6 L (3.8-10.6) k/uL RBC 4.05 L (4.30-5.90) m/uL Hct 38.5 L (39.0-53.0) % Plt Count 149 L (150-450) k/uL Lymphocytes # 0.8 L (1.0-4.8) k/uL APTT 34.3 H (22.0-30.0) sec Chloride 108 H (98-107) mmol/L BUN 27 H (9-20) mg/dL Creatinine 1.29 H (0.66-1.25) mg/dL Glucose 103 H (74-99) mg/dL Albumin 3.3 L (3.5-5.0) g/dL
[2021-04-05] MEDS: AZITHROMYCIN 500 MG TAB PO SCH (18:12)
[2021-04-05] MEDS: MIDODRINE 5 MG TAB PO SCH (18:12)
[2021-04-05] MEDS: IPRATROPIUM-ALBUTEROL 3 ML NEB INHALATION SCH (19:42)
[2021-04-05] MEDS: OLANZapine ODT 10 MG TAB PO SCH (20:52)
[2021-04-05] MEDS: DIVALPROEX ER 500 MG TAB.ER.24H PO SCH (20:53)
[2021-04-05] MEDS: HEPARIN SODIUM,PORCINE/PF 5,000 UNIT/0.5 ML SYRINGE SQ SCH (20:53)
[2021-04-05] MEDS: ATORVASTATIN 20 MG TAB PO SCH (20:53)
[2021-04-05 23:16] LABS: Chol/HDL Ratio 2.36 Ratio; LDL Cholesterol,Calculated 72.1 mg/dL (0.0-131.0); VLDL Calculation 18.54 mg/dL (5.00-40.00)
[2021-04-06] MEDS: IPRATROPIUM-ALBUTEROL 3 ML NEB INHALATION SCH ×4 (09:44→19:12)
[2021-04-06 09:47] LABS: African American GFR (CKD) 69.6 (60.0-200.0); Anion Gap 10.4 mmol/L (10.00-18.00); BUN/Creat Ratio 22.75 Ratio (12.00-20.00); Blood Urea Nitrogen 27.3 mg/dL (9.0-27.0); Calcium 8.9 mg/dL (8.7-10.3); Carbon Dioxide 25.6 mmol/L (20.0-27.5); Non-African American GFR(CKD) 60.1 (60.0-200.0); Potassium 4.9 mmol/L (3.5-5.5)
[2021-04-06] MEDS: CLOPIDOGREL 75 MG TAB PO SCH (09:51)
[2021-04-06] MEDS: FOLIC ACID 1 MG TAB PO SCH (09:51)
[2021-04-06] MEDS: DIVALPROEX ER 500 MG TAB.ER.24H PO SCH ×2 (09:51→20:28)
[2021-04-06] MEDS: MIDODRINE 5 MG TAB PO SCH ×3 (09:52→16:50)
[2021-04-06] MEDS: HEPARIN SODIUM,PORCINE/PF 5,000 UNIT/0.5 ML SYRINGE SQ SCH ×2 (10:06→20:28)
[2021-04-06] MEDS: OLANZapine ODT 5 MG TAB PO SCH (10:06)
--- NOTE | 2021-04-06 12:39 | P.CNNES ---
History of Present Illness Consult date: 04/06/21 Requesting physician: Ha Sesay Reason for Consult: multiple falls History of Present Illness: This is a 70-year-old gentleman with medical history of coronary artery disease, pneumonia, COPD, nicotine use, psych history of schizoaffective disorder and bipolar who presented emergency department via EMS on 04/05/2021 for some shortness of breath and the EMS felt the patient had some slurred muffled speech. Neurology was consulted because of multiple falls. Some of the history is obtained from medical record. Patient denies that he had any slurred speech and he sounded about the same. He denied of any weakness, numbness. He denied of any fevers or chills. The primary team's note his [id number] was concerned that the patient has slurred speech which was not evident at in the ER and it was possible that it lasted a few minutes. It seems the patient is dependent on ADLs. Patient smokes 1 pack of cigarettes a day. Patient denies any slurring the speech and he stated that she's been talking this way for a while but cannot tell me for long and he said that he is not wearing his dentures. He denies of any focal weakness or numbness or visual disturbance. He denies of any difficulty swallowing. He stated that he had 2 falls in the last 3-6 months and he stated the one time at he woke up at night when he stood up he fell and then another episode is when he was walking up the stairs he also fell. He stated at home he lives with his [id number] and that the patient does not use a any cane or walker and it's unknown whether it's the patient that doesn't want to use it or the other circumstances. He denies of any neck pain or lower back pain. He denies of any illicit drug use. I could not get a good history regarding his falls and his home circumstance. Patient's home medication is Depakote extended release 500 mg 1 tablet twice a day, Plavix 75 mg daily, Lipitor 20 g daily at bedtime, midrange 10 mg 1 tablet 3 times a day, olanzapine 20 mg daily at bedtime 5 mg daily, folic acid 1 mg daily. Some of the workup in the hospital consisted of: Initial vital signs is a blood pressure of 120/86, heart rate of 60, temp of 97.9 Fahrenheit axillary, respiratory of 19, pulse ox of 97% room air. Initial white blood cell is 3.6 thousand which is considered low, hemoglobin is 13.1 but hematocrit is 38.5. Platelet is 1 49,000. In May 2020 in our record the patient had the White blood cell 3.4 but prior to that was normal. Sodium was 143, creatinine is 1.29 and repeat is 1.20, serum glucose is 103, calcium is 9.0, AST is 30, ALT of 18. Lipid panel is triglyceride of 92.70, cholesterol is 157, LDL 72, HDL of 66. Sauceda virus PCR was not detected. PT is 10.5, INR is 1.0, PTT of 34.3. CT of the head is reported as no acute bleed or mass effect. Personally reviewe d the CT of the head there is no acute or subacute ischemia. EKG is reported as sinus bradycardia. Otherwise normal EKG. Review of Systems Review of system: The 12 point system was reviewed and apparent positive and negative per HPI. Past Medical History Past Medical History: Coronary Artery Disease (CAD), COPD, GERD/Reflux, Pneumonia History of Any Multi-Drug Resistant Organisms: None Reported Past Surgical History: No Surgical Hx Reported Additional Past Surgical History / Comment(s): patient states he has never had surgery Past Anesthesia/Blood Transfusion Reactions: No Reported Reaction Additional Past Anesthesia/Blood Transfusion Reaction / Comment(s): patient states he has never received blood or anesthesia Past Psychological History: Bipolar, Schizoaffective Disorder, Schizophrenia Smoking Status: Current every day smoker Past Alcohol Use History: None Reported Past Drug Use History: None Reported - Past Family History Father History Unknown: Yes Medications and Allergies Home Medications Medication Instructions Recorded Confirmed Type Clopidogrel [Plavix] 75 mg PO DAILY 04/18/19 04/05/21 History Atorvastatin Calcium [Lipitor] 20 mg PO HS 05/29/20 04/05/21 History Divalproex ER [Depakote ER] 500 mg PO BID 05/29/20 04/05/21 History Midodrine HCl [ProAmatine] 10 mg PO TID 05/29/20 04/05/21 History Folic Acid 1 mg PO DAILY #30 tab 06/01/20 04/05/21 Rx Ferrous Sulfate [Feosol] 325 mg PO DAILY 04/05/21 04/05/21 History OLANZapine [OLANZapine Odt] 5 mg PO DAILY 04/05/21 04/05/21 History OLANZapine [OLANZapine Odt] 20 mg PO HS 04/05/21 04/05/21 History Allergies Allergy/AdvReac Type Severity Reaction Status Date / Time No Known Allergies Allergy Verified 04/05/21 17:27 Physical Examination - Vital Signs Vital Signs: Vital Signs Temp Pulse Pulse Resp BP BP Pulse Ox 04/06/21 07:00 97.9 F 59 L 20 126/74 100 04/06/21 02:00 55 L 04/06/21 01:36 55 L 17 124/71 96 04/05/21 19:42 60 16 04/05/21 18:50 56 L 19 145/71 99 04/05/21 18:07 95.9 F L 60 16 136/75 98 04/05/21 17:19 56 L 19 123/81 97 04/05/21 14:28 56 L 16 128/83 100 04/05/21 13:46 53 L 16 132/77 99 Intake and Output 04/05/21 04/06/21 04/06/21 22:59 06:59 14:59 Intake Total 406 Output Total 300 Balance 106 Intake: Oral 406 Output: Urine 300 Other: Voiding Method Toilet Toilet # Voids 2 1 Weight 68.039 kg GENERAL: The patient is lying in bed and is not in acute distress. CHEST: The heart rate is regular rate rhythm. No murmurs to auscultation. No carotid bruit bilaterally. LUNG: Clear to auscultation bilaterally no wheezing noted throughout. Not labored breathing. ABDOMEN/GI: Bowel sounds present in all 4 quadrants. No tenderness to palpation throughout. NEUROLOGICAL: Higher mental function: The patient is awake, alert, oriented to self, place. He is oriented to year. For month he state it was March. Patient is following simple commands. No aphasia and no neglect. Cranial nerves: The pupils are round, equal and reactive to light and accommodation. Visual watson are full to confrontation throughout. Extraocular movement is intact no nystagmus is noted. Facial sensation is normal to touch throughout. The facial strength is left nasolabial flattening. Hearing is moderately decreased bilaterally to hand rub. Tongue is midline and moved [id number] without any difficulty. Has mild to moderate dysarthria (but according to patient this is baseline since has no dentures). Shoulder shrug is normal bilaterally. Motor: Gait is slow, cautious and not lifting feet above gravity. He walked without assistance. The strength is hard to assess deltoid well because of his cooperation but otherwise 5 over 5 throughout. Has moderate to significant atrophy mostly proximal upper and lowers as well as entire chest and abdomen region. In the lowers it involves bilateral thighs and posterior calf regions Normal tone. Cerebellum: Normal finger to nose heel to mcmillan bilaterally. Sensation: Sensation is normal to touch throughout. Reflexes (right/left): 2+ throughout uppers. Had hard time in lowers because of cooperation but appers 0 throughout. Plantars are mute bilaterally. Results - Laboratory Findings CBC and BMP: 04/05/21 11:28 04/06/21 05:13 Abnormal Lab Findings: Abnormal Labs 04/05/21 04/05/21 04/05/21 11:28 11:28 11:28 WBC 3.6 L RBC 4.05 L Hct 38.5 L Plt Count 149 L Lymphocytes # 0.8 L APTT 34.3 H Chloride 108 H BUN 27 H Creatinine 1.29 H BUN/Creatinine Ratio Glucose 103 H Albumin 3.3 L HDL Cholesterol 04/05/21 04/06/21 11:28 05:13 WBC RBC Hct Plt Count Lymphocytes # APTT Chloride BUN 27.3 H Creatinine BUN/Creatinine Ratio 22.75 H Glucose 55 L Albumin HDL Cholesterol 66.40 H Assessment and Plan Assessment: Recurrent falls unknown etiology. On examination has moderate to significant atrophy of proximal muscles, entire chest and abdomen. Rule out myopathy. Questionable transient dysarthria. Does not appears due to stroke or TIA. Possible lack of dentures (per patient his baseline) vs cannot rule out myopathy. Acute on chronic kidney insufficiency Mild Pancytopenia History of coronary artery disease COPD History of Schizoaffective disorder History of Bipolar Nicotine use (1 Pack per day for years) Plan: I ordered a carotid duplex, vitamin B12, folate, TSH, hemoglobin A1c and CPK level. Ordered orthostatic vitals. Patient is restarted on his all medication I'll Plavix 75 mg daily and Lipitor 20 mg daily at bedtime. I'll not place the patient on dual antiplatelet because of his falls which the with dual antiplatelet increased risk of a bleed. Ordered CT lumbar. Neuro checks every 4 hours Placed on cardiac monitoring. Consulted PT, OT and REFRACTORY WORKER. Recommend EMG with NCS of bilateral upper and lower extremities with cranial nerve sample to assess for myopathy as outpatient. Regarding possible mild pancytopenia defer the management to the primary team. Defer the rest of the medical management to the primary team. The plan is discussed with the patient's nurse. Will attempt to discuss with patient [id number] for additional history/clarification. Thank you for the consultation. Diallo Montes M.D. Neuro-hospitalist Time with Patient: Greater than 30
--- NOTE | 2021-04-06 13:30 | CT ---
The The EXAMINATION TYPE: CT lumbar spine wo con DATE OF EXAM: 04/06/2021 1:17 PM COMPARISON: None HISTORY: Frequent falls CT DLP: 620.8 mGycm Automated exposure control for dose reduction was used. Unenhanced CT of the lumbar spine was performed. Bone and soft tissue window settings are submitted as well as coronal and sagittal reconstructions. There is a moderately severe scoliotic curvature convex to the right. L1-L2: There is evidence of vacuum disc. Mild posterior disc bulge. Ventral and dorsal spurring. Face t joint arthropathy. Mild foraminal encroachment. No herniation or central stenosis. L2-L3: There is evidence of vacuum disc. Mild posterior disc bulge. Ventral and dorsal spurring. Face t joint arthropathy. Mild foraminal encroachment. No herniation or central stenosis. L3-L4: Vacuum disc with posterior disc bulge. Hypertrophy ligamentum flavum and facet joint arthropat hy resulting in mild to moderate central stenosis. Facet joint arthropathy resulting in bilateral for aminal encroachment. L4-L5: Vacuum disc with posterior disc bulge. Hypertrophy ligamentum flavum and facet joint arthropat hy resulting in mild to moderate central stenosis. Facet joint arthropathy resulting in bilateral for aminal encroachment. L5-S1: Vacuum disc with posterior disc bulge. Hypertrophy ligamentum flavum and facet joint arthropat hy resulting in mild to moderate central stenosis. Facet joint arthropathy resulting in bilateral for aminal encroachment. No evidence for fracture or malalignment. Incidental small pleural effusions. IMPRESSION: 1. Severe multilevel degenerative disc disease. 2. Multilevel central stenosis at L3-4, L4-5 and L5-S1.
--- NOTE | 2021-04-06 13:59 | US ---
EXAMINATION TYPE: US carotid duplex BILAT DATE OF EXAM: 04/06/2021 COMPARISON: NONE CLINICAL HISTORY: slurred speech. tia. EXAM MEASUREMENTS: RIGHT: Peak Systolic Velocity (PSV) cm/sec ----- Right CCA: 54.2 ----- Right ICA: 74.8 ----- Right ECA: 133.0 ICA/CCA ratio: 1.38 RIGHT: End Diastole cm/sec ----- Right CCA: 9.2 ----- Right ICA: 19.3 ----- Right ECA: 10.9 LEFT: Peak Systolic Velocity (PSV) cm/sec ----- Left CCA: 63.1 ----- Left ICA: 65.4 ----- Left ECA: 100..0 ICA/CCA ratio: 1.04 LEFT: End Diastole cm/sec ----- Left CCA: 9.2 ----- Left ICA: 17.2 ----- Left ECA: 0.0 VERTEBRALS (direction of flow): Right Vertebral: Antegrade Left Vertebral: Antegrade Rhythm: Normal No significant stenosis seen. Shadowing plaque noted at bulbs. INtimal thickening noted. IMPRESSION: No evidence for hemodynamically significant stenosis. Criteria for Assigning % of Stenosis / Diameter reduction (Estimation based on the indirect measurements of the internal carotid artery velocities (ICA PSV). 1. Normal (no stenosis)=ICA PSV < 125 cm/s: ratio < 2.0: ICA EDV<40 cm/s. 2. Less than 50% stenosis=ICA PSV < 125 cm/s: ratio < 2.0: ICA EDV<40 cm/s. 3. 50 to 69% stenosis=ICA PSV of 125 to 230 cm/s: ration 2.0 ? 4.0: ICA EDV 40-100 cm/s. 4. Greater than 70% stenosis to near occlusion= ICA PSV > 230 cm/s: ratio > 4.0: ICA EDV > 100 cm/s. 5. Near occlusion= ICA PSV velocities may be low or undetectable: variable ratio and ICA EDV. 6. Total occlusion=unable to detect flow.
[2021-04-06] MEDS ORDERED: IPRATROPIUM-ALBUTEROL 3 ML NEB INHALATION PRN (14:38)
--- NOTE | 2021-04-06 14:48 | P.PN ---
Subjective Patient is a pleasant 68-year-old male with extensive smoking history was brought in by caregiver who is his [id number] because of concerns of slurred speech although slurred speech was not evident when he came to ER and only lasted for a few minutes. Patient and made to score was 0. Patient has extensive smoking history presently smokes 1 pack per of cigarettes per day. Patient is dependent on ADLs and IADLs. Patient doesn't have any fever chills chest x-ray showed mild bilateral pleural effusions. Patient creatinine is 1.29 which she appears to be his baseline from historical data. Patient mental status is at his baseline. 04/06/2021 Patient is at his baseline patient looks much better today patient was evaluated by neurology please refer to the documentation for further details. Carotid Doppler did not show any significant hemodynamic stenosis. Patient had a lumbar spinal CT which showed multiple levels of degenerative to this disease and central canal stenosis may be the reason why. Patient has significant muscle atrophy in all extremities. There is a concern of myopathy. The home financial issues I'm consulting social work physical therapy and outpatient therapy will evaluate the patient. Constitutional: Denied any fatigue denied any fever. Cardio vascular: denied any chest pain, palpitations Gastrointestinal denied any nausea vomiting Pulmonary: Denied any shortness of breath cough Neurologic denied any new focal deficits All inpatient medications were reviewed and appropriate changes in these med ications as dictated in the interval history and assessment and plan. PHYSICAL EXAMINATION: GENERAL: The patient is alert and oriented x3, not in any acute distress. Well developed, well nourished. HEENT: Pupils are round and equally reacting to light. EOMI. No scleral icterus. No conjunctival pallor. Normocephalic, atraumatic. No pharyngeal erythema. No thyromegaly. CARDIOVASCULAR: S1 and S2 present. No murmurs, rubs, or gallops. PULMONARY: She is bilateral rhonchi ABDOMEN: Soft, nontender, nondistended, normoactive bowel sounds. No palpable organomegaly. MUSCULOSKELETAL: No joint swelling or deformity. EXTREMITIES: No cyanosis, clubbing, or pedal edema. NEUROLOGICAL: Gross neurological examination did not reveal any focal deficits. SKIN: No rashes. Assessment and plan 1 Possible slurred speech will rule out TIA neurology and the patient. Carotid Doppler as mentioned above -Severe lumbar spinal stenosis and lumbar degenerative disc disease -Bronchitis for which patient is on azithromycin and inhalational treatments with improvement in his respiratory status -Extensive nicotine use: Counseling was provided -Generalized deconditioning multiple falls physical therapy and occupational therapy evaluation History of coronary artery disease -Gastroesophageal reflux disease -Schizoaffective disorder DVT prophylaxis: Subcutaneous heparin Objective - Vital Signs Vital signs: Vital Signs Temp 97.9 F 04/06/21 07:00 Pulse 57 L 04/06/21 12:58 Resp 20 04/06/21 08:00 BP 150/82 04/06/21 12:58 Pulse Ox 100 04/06/21 07:00 Intake & Output 04/05/21 04/06/21 04/06/21 18:59 06:59 18:59 Intake Total 406 Output Total 300 Balance 106 Weight 68.039 kg Intake: Oral 406 Output: Urine 300 Other: Voiding Method Toilet Urinal # Voids 1 - Labs CBC & Chem 7: 04/05/21 11:28 04/06/21 05:13 Labs: Abnormal Lab Results - Last 24 Hours (Table) 04/05/21 04/06/21 Range/Units 11:28 05:13 BUN 27.3 H (9.0-27.0) mg/dL BUN/Creatinine Ratio 22.75 H (12.00-20.00) Ratio Glucose 55 L (70-110) mg/dL HDL Cholesterol 66.40 H (40.00-60.00) mg/dL
[2021-04-06] MEDS: AZITHROMYCIN 500 MG TAB PO SCH (17:07)
[2021-04-06] MEDS: BUDESONIDE 0.5 MG/2 ML NEBU INHALATION SCH (19:12)
[2021-04-06] MEDS: ATORVASTATIN 20 MG TAB PO SCH (20:28)
[2021-04-06] MEDS: OLANZapine ODT 10 MG TAB PO SCH (20:28)
[2021-04-06 23:28] LABS: Creatine Kinase 96 U/L (35-257)
[2021-04-07] MEDS: BUDESONIDE 0.5 MG/2 ML NEBU INHALATION SCH ×2 (09:25→20:11)
[2021-04-07] MEDS: IPRATROPIUM-ALBUTEROL 3 ML NEB INHALATION SCH ×4 (09:25→20:11)
[2021-04-07] MEDS: HEPARIN SODIUM,PORCINE/PF 5,000 UNIT/0.5 ML SYRINGE SQ SCH ×2 (09:37→20:29)
[2021-04-07] MEDS: DIVALPROEX ER 500 MG TAB.ER.24H PO SCH ×2 (09:38→20:29)
[2021-04-07] MEDS: CLOPIDOGREL 75 MG TAB PO SCH (09:38)
[2021-04-07] MEDS: MIDODRINE 5 MG TAB PO SCH ×3 (09:38→18:12)
[2021-04-07] MEDS: OLANZapine ODT 5 MG TAB PO SCH (09:39)
[2021-04-07] MEDS: FOLIC ACID 1 MG TAB PO SCH (09:39)
--- NOTE | 2021-04-07 09:46 | P.PN ---
Subjective Progress Note Date: 04/07/21 The patient is seen at bedside and he feels about the same. He denies of any new neurological problems. Patient serum glucose was 55 on the 04/06/2021 and normal supposed to be between 70-110. Patient denies of any lower back pain. Objective - Vital Signs Vital signs: Vital Signs Temp 96.0 F L 04/07/21 07:00 Pulse 60 04/07/21 07:00 Resp 16 04/07/21 07:00 BP 133/73 04/07/21 07:00 Pulse Ox 93 L 04/07/21 07:00 Intake & Output 04/06/21 04/07/21 04/07/21 18:59 06:59 18:59 Intake Total 456 750 Output Total 800 960 600 Balance -344 -210 -600 Intake: Oral 456 750 Output: Urine 800 960 600 Other: Voiding Method Urinal # Voids 1 - Exam GENERAL: The patient is lying in bed and is not in acute distress. NEUROLOGICAL: Higher mental function: The patient is awake, alert, oriented to self, place. He is oriented to year. For month he state it was March. Patient is following simple commands. No aphasia and no neglect. Cranial nerves: The pupils are round, equal and reactive to light and accommodation. Visual watson are full to confrontation throughout. Extraocular movement is intact no nystagmus is noted. Facial sensation is normal to touch throughout. The facial strength is left nasolabial flattening. Hearing is moderately decreased bilaterally to hand rub. Tongue is midline and moved [id number] without any difficulty. Has mild to moderate dysarthria (but according to patient this is baseline since has no dentures). Shoulder shrug is normal bilaterally. Motor: Gait is deferred. The strength is hard to assess deltoid well because of his cooperation but otherwise 5 over 5 throughout. Has moderate to significant atrophy mostly proximal upper and lowers as well as entire chest and abdomen region. In the lowers it involves bilateral thighs and posterior calf regions Normal tone. Cerebellum: Normal finger to nose heel to mcmillan bilaterally. Sensation: Sensation is normal to touch throughout. Reflexes (right/left): 2+ throughout uppers. Had hard time in lowers because of cooperation but appers 0 throughout. Plantars are mute bilaterally. WORK-UP: Sauceda virus PCR was not detected. PT is 10.5, INR is 1.0, PTT of 34.3. Vitamin B12 is at thousand and 34 Serum folate is 13.2 TSH is 3.370 Hemoglobin A1c is 4.8 CK level is 96 Lipid panel as triglyceride 92, cholesterol is 157, LDL 72 and HDL of 66. CT of the head is reported as no acute bleed or mass effect. Personally reviewed the CT of the head there is no acute or subacute ischemia. CT Lumbar is reported as severe multilevel degenerative disc disease. Multilevel central stenosis at L3-L4, L4-L5 and L5-S1. Carotid duplex is reported as no evidence for hemodynamic significant stenosis. EKG is reported as sinus bradycardia. Otherwise normal EKG. - Labs CBC & Chem 7: 04/05/21 11:28 04/06/21 05:13 Labs: Abnormal Lab Results - Last 24 Hours (Table) 04/06/21 04/06/21 Range/Units 05:13 05:13 BUN 27.3 H (9.0-27.0) mg/dL BUN/Creatinine Ratio 22.75 H (12.00-20.00) Ratio Glucose 55 L (70-110) mg/dL Vitamin B12 1034.0 H (200.0-944.0) pg/mL Assessment and Plan Assessment: * Recurrent falls unknown etiology. On examination has moderate to significant atrophy of proximal muscles, entire chest and abdomen. Rule out myopathy. Also had hypoglycemia during this admission and not unsure if patient has hypoglycemic events at home which can cause to generalized weakness and falls. * Questionable transient dysarthria. Does not appears due to stroke or TIA. Possible lack of dentures (per patient his baseline) vs cannot rule out myopathy. * Episode of hypoglycemia (as low as 55) * Lumbosacral spondylosis at multiple level at L3-L4 L4-L5 and L5-S1 it's reported as severe on CT lumbar) * Acute on chronic kidney insufficiency--resolved * Mild Pancytopenia * History of coronary artery disease * COPD * History of Schizoaffective disorder * History of Bipolar * Nicotine use (1 Pack per day for years) Plan: * Ordered orthostatic vitals: Is a supine is 150/82 with a heart rate of 57, sitting is 144/72 with a heart rate of 60 and standing is 125/71 with a heart rate of 70 there is almost close to 20 drop of systolic blood pressure from sitting to standing. I notified the nurse to get a repeat orthostatic vitals and if it's positive to consult cardiology team. Positive orthostatic can lead to falls. * Patient is continued on his home medication of Plavix 75 mg daily and Lipitor 20 mg daily at bedtime. * Pending CT neck. * Neuro checks every 4 hours * Continue cardiac monitoring. * Consulted PT, OT and WIRELINE OPERATOR. * Consult Orthopedic team for his lumbosacral spondylosis. I feel patient does not need any surgical intervention but wants Orthopedic team involved to evaluate his lower back. * Recommend EMG with NCS of bilateral upper and lower extremities with cranial nerve sample to assess for myopathy as outpatient. * Regarding possible mild pancytopenia defer the management to the primary team. * Defer the rest of the medical management to the primary team. The plan is discussed with the patient's nurse. Will attempt to discuss with patient [id number] for additional history/clarification. Diallo Montes M.D. Neuro-hospitalist Time with Patient: Less than 30
--- NOTE | 2021-04-07 10:44 | CT ---
EXAMINATION TYPE: CT cervical spine wo con DATE OF EXAM: 04/07/2021 COMPARISON: CT Cervical spine 05/09/2011. HISTORY: Upper extremity weakness. Fall injury. CT DLP: 400 mGycm. Automated Exposure Control for Dose Reduction was Utilized. TECHNIQUE: CT scan of the cervical spine is obtained without contrast, axial images are obtained, sa gittal and coronal reformatted images are also reviewed. FINDINGS: Cervical spine is visualized in its entirety from C1 through upper thoracic levels and rede monstrates levoconvex scoliosis centered upper thoracic spine. Prevertebral soft tissue appears with in normal limits. The C1-C2 articulation is within normal limits on the coronal images. Vertebral ion dy heights are maintained. There is grade 1 anterolisthesis C3 on C4, C4 on C5, and C5 on C6. Vertebr al body heights are maintained. Moderate disc space narrowing and spurring C4-C5 level. Moderate to s evere disc space narrowing and spurring C6-C7 and C7-T1 levels. [id number] disc space narrowing with moderate anterior spurring C5-C6 level. Posterior disc herniations and spur disc complexes effa ce the anterior thecal sac at all levels with relative sparing of the C2-C3 level. Review of axial images shows multilevel uncovertebral facet degenerative changes contributing to mult ilevel bilateral neural foraminal narrowing with involvement bilaterally at C3-C4 and C4-C5 levels. A symmetric left-sided increased involvement at C5-C6 level is seen causing moderate to borderline rizwan re stenosis axial image 53. Moderate calcified plaque bilateral carotid bulb level. Mild/moderate und erlying emphysematous change of the visualized upper lungs. IMPRESSION: Scoliosis and multilevel spondylosis and degenerative changes as detailed above with some interval degenerative progression from 2012 CT noted.
--- NOTE | 2021-04-07 16:53 | ECHOF ---
Referral Reason:CP MEASUREMENTS -------- HEIGHT: 180.3 cm WEIGHT: 68.0 kg BP: 141/79 IVSd: 1.1 cm (0.6 - 1.1) LVIDd: 4.7 cm (3.9 - 5.3) LVPWd: 1.4 cm (0.6 - 1.1) EDV(Teich): 101 ml IVSs: 1.6 cm LVIDs: 2.6 cm LVPWs: 1.6 cm %IVS Thck: 46 % ESV(Teich): 23 ml EF(Teich): 77 % %FS: 46 % SV(Teich): 78 ml Ao Diam: 3.5 cm (2.0 - 3.7) LA Diam: 3.2 cm (2.7 - 3.8) AV Cusp: 2.0 cm (1.5 - 2.6) EPSS: 1.1 cm MV E Nate: 0.50 m/s MV DecT: 224 ms MV Dec [place]: 2.2 m/s MV A Nate: 0.72 m/s MV E/A Ratio: 0.69 MV PHT: 65 ms MR Vmax: 1.20 m/s MR maxP.74 mmHg AV Vmax: 1.37 m/s AV maxP.51 mmHg TR Vmax: 1.36 m/s TR maxP.42 mmHg RAP: 5.00 mmHg RVSP: 12.42 mmHg MV EF SLOPE: 41.68 mm/s (70 - 150) MV EXCURSION: 16.79 mm (> 18.000) FINDINGS -------- This was a technically difficult study with suboptimal views. The left ventricular size is normal. There is mild concentric left ventricular hypertrophy. Overa ll left ventricular systolic function is normal with, an EF between 55 - 60 %. Subcoastals only The RV was not well visualized. Normal LA size by volume 22+/-6 ml/m2. The right atrial size is normal. Aortic valve is trileaflet and is mildly thickened. The mitral valve is normal. The mitral valve leaflets are mildly thickened. There is trace mitral regurgitation. The tricuspid valve appears structurally normal. Trace tricuspid regurgitation present. Right shailesh tricular systolic pressure is normal at < 35 mmHg. There is no pulmonic regurgitation present. The aortic root size is normal. Normal inferior vena cava with normal inspiratory collapse consistent with estimated right atrial pre ssure of 5 mmHg. There is a small, generalized pericardial effusion present. CONCLUSIONS -------- 1. The left ventricular size is normal. 2. There is mild concentric left ventricular hypertrophy. 3. Overall left ventricular systolic function is normal with, an EF between 55 - 60 %. 4. Subcoastals only 5. Aortic valve is trileaflet and is mildly thickened. 6. The mitral valve leaflets are mildly thickened. 7. There is trace mitral regurgitation. 8. Trace tricuspid regurgitation present. 9. There is a MODERATE, generalized pericardial effusion present. FIBRINOUS MATERIAL IN PERICARDIAL S AC SUGGESTS CHRONICITY HANDBAG FINISHER: Dacia aKur RDCS
[2021-04-07] MEDS: AZITHROMYCIN 500 MG TAB PO SCH (18:12)
[2021-04-07] MEDS: ATORVASTATIN 20 MG TAB PO SCH (20:29)
[2021-04-07] MEDS: OLANZapine ODT 10 MG TAB PO SCH (20:29)
--- NOTE | 2021-04-07 22:04 | P.CNOR ---
History of Present Illness - [facility] Consult date: 04/07/21 Requesting physician: Diallo Montes Consult reason: other (lumbosacral spondylosis) History of present illness: Patient is a 70-year-old male presenting to the emergency department several d ays ago for shortness of breath and slurred speech. We have been consulted for lumbosacral spondylosis. Patient was evaluated at bedside lying semirecumbent in bed comfortably. Patient was very difficult to understand during the encounter due to his slurred speech. Patient was also unable to com prehend/answer multiple questions during encounter which made exam difficult. Patient says he has had some falls over the past few months. Patient denies having any back pain currently. Patient denies saddle anesthesia. Patient denies lower extremity radiculopathy. Patient denies chest pain, fever, shortness breath, nausea, vomiting, change in vision, loss of bowel/bladder control. Patient denies any weakness Past Medical History Past Medical History: Coronary Artery Disease (CAD), COPD, GERD/Reflux, Pneumonia History of Any Multi-Drug Resistant Organisms: None Reported Past Surgical History: No Surgical Hx Reported Additional Past Surgical History / Comment(s): patient states he has never had surgery Past Anesthesia/Blood Transfusion Reactions: No Reported Reaction Additional Past Anesthesia/Blood Transfusion Reaction / Comm: patient states he has never received blood or anesthesia Past Psychological History: Bipolar, Schizoaffective Disorder, Schizophrenia Smoking Status: Current every day smoker Past Alcohol Use History: None Reported Past Drug Use History: None Reported - Past Family History Father History Unknown: Yes Medications and Allergies Home Medications Medication Instructions Recorded Confirmed Type Clopidogrel [Plavix] 75 mg PO DAILY 04/18/19 04/05/21 History Atorvastatin Calcium [Lipitor] 20 mg PO HS 05/29/20 04/05/21 History Divalproex ER [Depakote ER] 500 mg PO BID 05/29/20 04/05/21 History Midodrine HCl [ProAmatine] 10 mg PO TID 05/29/20 04/05/21 History Folic Acid 1 mg PO DAILY #30 tab 06/01/20 04/05/21 Rx Ferrous Sulfate [Feosol] 325 mg PO DAILY 04/05/21 04/05/21 History OLANZapine [OLANZapine Odt] 5 mg PO DAILY 04/05/21 04/05/21 History OLANZapine [OLANZapine Odt] 20 mg PO HS 04/05/21 04/05/21 History Allergies Allergy/AdvReac Type Severity Reaction Status Date / Time No Known Allergies Allergy Verified 04/05/21 17:27 Physical Examination Inspection: Negative for any evident open fractures, significant ecchymosis/erythema, nodules. Evident scoliosis throughout the spine. Sensation: Sensation is equal, symmetric, bilaterally intact throughout the upper and lower extremities. Palpation: Patient is nontender to palpation throughout the entire exam Range of motion: Patient has full range of motion bilateral upper and lower extremities throughout exam Motor: 4+/5 in all major motor of upper and lower extremities Neurovascular status: Refillable 3 seconds bilaterally and digits of upper extremities. Radial pulses intact, 2+ bilaterally. Special tests: Negative clonus bilaterally; negative Homans sign; [place]'s is difficult to obtain due to patient status. May be positive but patient was somewhat moving his arm during exam Results - Labs Labs: Abnormal Lab Results - Last 24 Hours (Table) 04/06/21 Range/Units 05:13 Vitamin B12 1034.0 H (200.0-944.0) pg/mL H & H 04/05/21 Range/Units 11:28 Hgb 13.1 (13.0-17.5) gm/dL Hct 38.5 L (39.0-53.0) % Coagulation 04/05/21 Range/Units 11:28 INR 1.0 (<1.2) Result Diagrams: 04/05/21 11:28 04/06/21 05:13 Assessment and Plan Assessment: 1. Cervical spondylosis; C3-C4 anterolisthesis; C4-C5 anterolisthesis; C5-C6 anterolisthesis; lumbosacral spondylosis L3 to S1 2. Multiple medical comorbidities Plan: 1. Cervical spondylosis; C3-C4 anterolisthesis; C4-C5 anterolisthesis; C5-C6 anterolisthesis; lumbosacral spondylosis L3 to S1 - I did discuss with the patient the findings of the cervical and lumbar CT exam. I also did discuss the results with my attending,Dr. Armenta. At this time we do not recommend any urgent/emergent orthopedic surgical intervention. We will continue to follow patient in the hospital. We recommend patient to follow-up in the outpatient setting for any further issues. 2. Appreciate medical management 3. Appreciate consult 4. Pain management -stable at this time 5. DVT prophylaxis - heparin; Plavix 6. GI prophylaxis 7. PT/OT - weightbearing as tolerated with walker and assistance Time with Patient: Less than 30
--- NOTE | 2021-04-07 22:50 | P.PN ---
Subjective Progress Note Date: 04/07/21 Patient is a pleasant 68-year-old male with extensive smoking history was brought in by caregiver who is his [id number] because of concerns of slurred speech although slurred speech was not evident when he came to ER and only lasted for a few minutes. Patient and made to score was 0. Patient has e xtensive smoking history presently smokes 1 pack per of cigarettes per day. Patient is dependent on ADLs and IADLs. Patient doesn't have any fever chills chest x-ray showed mild bilateral pleural effusions. Patient creatinine is 1.29 which she appears to be his baseline from historical data. Patient mental status is at his baseline. 04/06/2021 Patient is at his baseline patient looks much better today patient was evaluated by neurology please refer to the documentation for further details. Carotid Doppler did not show any significant hemodynamic stenosis. Patient had a lumbar spinal CT which showed multiple levels of degenerative to this disease and central canal stenosis may be the reason why. Patient has significant muscle atrophy in all extremities. There is a concern of myopathy. The home financial issues I'm consulting social work physical therapy and outpatient therapy will evaluate the patient.. 04/07/2021 Patient is seen and evaluated and follow-up in neurology is following. Orthopedic consult placed as the cervical spine CT shows scoliosis and multilevel spondylosis and degenerative changes with some interval degenerative progression from CT in 2011. Again orthopedics has been consulted and will await report. Patient is continued on oral Zithromax and breathing inhalational treatments and will continue and denies any worsening shortness of breath. 2-D echo was also ordered and pending. Will have PT/OT therapy evaluate the patient and social work consulted to assess discharge planning needs. Carotid Doppler was done showing no significant stenosis and shadowing plaque noted at the bulbs. Constitutional: Denied any fatigue denied any fever. Cardio vascular: denied any chest pain, palpitations Gastrointestinal denied any nausea vomiting Pulmonary: Denied any shortness of breath, reports occasional cough Neurologic denied any new focal deficits All inpatient medications were reviewed and appropriate changes in these medications as dictated in the interval history and assessment and plan. Active Medications Albuterol/Ipratropium (Ipratropium-Albuterol 3 Ml Neb) 3 ml INHALATION RT-QID PRN PRN Reason: Shortness Of Breath Or Wheezing Albuterol/Ipratropium (Ipratropium-Albuterol 3 Ml Neb) 3 ml INHALATION RT-QID [facility] Last Admin: 04/07/21 13:07 Dose: 3 ml Documented by: Atorvastatin Calcium (Atorvastatin 20 Mg Tab) 20 mg PO HS [facility] Last Admin: 04/06/21 20:28 Dose: 20 mg Documented by: Azithromycin (Azithromycin 500 Mg Tab) 500 mg PO DAILY@1800 [facility] Last Admin: 04/06/21 17:07 Dose: 500 mg Documented by: Budesonide (Budesonide 0.5 Mg/2 Ml Nebu) 0.5 mg INHALATION RT-BID [facility] Last Admin: 04/07/21 09:25 Dose: 0.5 mg Documented by: Clopidogrel Bisulfate (Clopidogrel 75 Mg Tab) 75 mg PO DAILY [facility] Last Admin: 04/07/21 09:38 Dose: 75 mg Documented by: Divalproex Sodium (Divalproex Er 500 Mg Tab.Er.24h) 500 mg PO BID [facility] Last Admin: 04/07/21 09:38 Dose: 500 mg Documented by: Folic Acid (Folic Acid 1 Mg Tab) 1 mg PO DAILY [facility] Last Admin: 04/07/21 09:39 Dose: 1 mg Documented by: Heparin Sodium (Porcine) (Heparin Sodium,Porcine/Pf 5,000 Unit/0.5 Ml Syringe) 5,000 unit SQ Q12HR [facility] Last Admin: 04/07/21 09:37 Dose: 5,000 unit Documented by: Midodrine (Midodrine 5 Mg Tab) 10 mg PO AC-TID [facility] Last Admin: 04/07/21 14:49 Dose: 10 mg Documented by: Olanzapine (Olanzapine Odt 5 Mg Tab) 5 mg PO DAILY [facility] Last Admin: 04/07/21 09:39 Dose: 5 mg Documented by: Olanzapine (Olanzapine Odt 10 Mg Tab) 20 mg PO HS [facility] Last Admin: 04/06/21 20:28 Dose: 20 mg Documented by: PHYSICAL EXAMINATION: GENERAL: The patient is alert and oriented x3, not in any acute distress. Well developed, well nourished. HEENT: Pupils are round and equally reacting to light. EOMI. No scleral icterus. No conjunctival pallor. Normocephalic, atraumatic. No pharyngeal erythema. No t hyromegaly. CARDIOVASCULAR: S1 and S2 present. No murmurs, rubs, or gallops. PULMONARY: Diminished breath sounds with bilateral rhonchi noted, no wheezing noted ABDOMEN: Soft, nontender, nondistended, normoactive bowel sounds. No palpable organomegaly. MUSCULOSKELETAL: No joint swelling or deformity. EXTREMITIES: No cyanosis, clubbing, or pedal edema. NEUROLOGICAL: Gross neurological examination did not reveal any focal deficits. SKIN: No rashes. Assessment: -Possible slurred speech, ruled out TIA, neurology following -Severe lumbar spinal stenosis and lumbar degenerative disc disease -Bronchitis for which patient is on azithromycin and inhalational treatments with improvement in his respiratory status -Extensive nicotine use: Counseling was provided -Generalized deconditioning with multiple falls, PT/OT to evaluate the patient and social work consulted -History of coronary artery disease -Gastroesophageal reflux disease -Schizoaffective disorder -DVT prophylaxis: Subcutaneous heparin Plan: Continue current medications Neurology following and has ongoing neurological work-up and CT showing severe lumbar stenosis and consulted orthopedics which is pending PT/OT to evaluate the patient and social work consulted, Possible ECF Continue current diet and patient has been evaluated by speech Possible discharge in 24 hours. Objective - Vital Signs Vital signs: Vital Signs Temp 96.0 F L 04/07/21 07:00 Pulse 64 04/07/21 09:28 Resp 16 04/07/21 07:00 BP 133/73 04/07/21 07:00 Pulse Ox 96 04/07/21 09:28 Intake & Output 04/06/21 04/07/21 04/07/21 18:59 06:59 18:59 Intake Total 456 750 120 Output Total 800 960 600 Balance -344 -210 -480 Intake: Oral 456 750 120 Output: Urine 800 960 600 Other: Voiding Method Urinal # Voids 1 - Labs CBC & Chem 7: 04/05/21 11:28 04/06/21 05:13 Labs: Abnormal Lab Results - Last 24 Hours (Table) 04/06/21 04/06/21 Range/Units 05:13 05:13 BUN 27.3 H (9.0-27.0) mg/dL BUN/Creatinine Ratio 22.75 H (12.00-20.00) Ratio Glucose 55 L (70-110) mg/dL Vitamin B12 1034.0 H (200.0-944.0) pg/mL
[2021-04-08 02:21] VITALS: RESP 16
[2021-04-08] MEDS: IPRATROPIUM-ALBUTEROL 3 ML NEB INHALATION SCH ×3 (07:31→15:17)
[2021-04-08] MEDS: BUDESONIDE 0.5 MG/2 ML NEBU INHALATION SCH (07:31)
[2021-04-08] MEDS: OLANZapine ODT 5 MG TAB PO SCH (09:06)
[2021-04-08] MEDS: CLOPIDOGREL 75 MG TAB PO SCH (09:06)
[2021-04-08] MEDS: DIVALPROEX ER 500 MG TAB.ER.24H PO SCH (09:06)
[2021-04-08] MEDS: MIDODRINE 5 MG TAB PO SCH (09:06)
[2021-04-08] MEDS: HEPARIN SODIUM,PORCINE/PF 5,000 UNIT/0.5 ML SYRINGE SQ SCH (09:06)
[2021-04-08] MEDS: FOLIC ACID 1 MG TAB PO SCH (09:07)
--- NOTE | 2021-04-08 11:55 | P.PN ---
Subjective Progress Note Date: 04/08/21 The patient is seen at bedside and he feels he is about the same. Denies of any new neurological problems. Objective - Vital Signs Vital signs: Vital Signs Temp 97.4 F L 04/08/21 07:00 Pulse 74 04/08/21 11:12 Resp 16 04/08/21 07:00 BP 104/73 04/08/21 07:00 Pulse Ox 96 04/08/21 07:32 Intake & Output 04/07/21 04/08/21 04/08/21 18:59 06:59 18:59 Intake Total 480 400 120 Output Total 800 770 Balance -320 -370 120 Intake: Oral 480 400 120 Output: Urine 800 770 Other: Voiding Method Urinal Urinal # Voids 1 - Exam GENERAL: The patient is lying in bed and is not in acute distress. NEUROLOGICAL: Higher mental function: The patient is awake, alert, oriented to self, place. He is oriented to year. For month he state it was March. Patient is following simple commands. No aphasia and no neglect. Cranial nerves: The pupils are round, equal and reactive to light and accommodation. Visual watson are full to confrontation throughout. Extraocular movement is intact no nystagmus is noted. Facial sensation is normal to touch throughout. The facial strength is left nasolabial flattening. Hearing is moderately decreased bilaterally to hand rub. Tongue is midline and moved [id number] without any difficulty. Has mild to moderate dysarthria (but according to patient this is baseline since has no dentures). Shoulder shrug is normal bilaterally. Motor: Gait is deferred. The strength is hard to assess deltoid well because of his cooperation but otherwise 5 over 5 throughout. Has moderate to significant atrophy mostly proximal upper and lowers as well as entire chest and abdomen region. In the lowers it involves bilateral thighs and posterior calf regions Normal tone. Cerebellum: Normal finger to nose heel to mcmillan bilaterally. Sensation: Sensation is normal to touch throughout. Reflexes (right/left): 2+ throughout uppers. Had hard time in lowers because of cooperation but appers 0 throughout. Plantars are mute bilaterally. WORK-UP: Repeat orthostatic vitals is supine is 102/57 with a heart rate of 69, sitting is blood pressure of 108/68 with a heart rate of 71 and standing is 106/57 with a heart rate of 72. Sauceda virus PCR was not detected. PT is 10.5, INR is 1.0, PTT of 34.3. Vitamin B12 is 1034. Serum folate is 13.2 TSH is 3.370 Hemoglobin A1c is 4.8 CK level is 96 Lipid panel as triglyceride 92, cholesterol is 157, LDL 72 and HDL of 66. CT of the head is reported as no acute bleed or mass effect. Personally reviewed the CT of the head there is no acute or subacute ischemia. CT Lumbar is reported as severe multilevel degenerative disc disease. Mul tilevel central stenosis at L3-L4, L4-L5 and L5-S1. CT cervical spine: Reported as scoliosis and multilevel spondylosis and degenerative changes as detailed above with some interval degenerative progr ession from 2012 CT noted that. In the body it is reported as moderate disc space narrowing and spurring at C4-C5. Moderate to severe disc space narrowing and spurring over C6-C7 and C7-T1. Mild to moderate disc space narrowing with moderate anterior spurring at C5-C6 level. Asymmetric left-sided increase involvement at C5-C6 is seen causing moderate to borderline severe stenosis axial image 53. Carotid duplex is reported as no evidence for hemodynamic significant stenosis. EKG is reported as sinus bradycardia. Otherwise normal EKG. The echo was reported as mild considerable ventricle hypertrophy. Ejection fraction 55-60%. Normal left atrial size by volume. There is moderate generali zed pericardial effusion present. Fibrous material in the pericardial sac suggests chronicity - Labs CBC & Chem 7: 04/05/21 11:28 12 05:13 Assessment and Plan Assessment: * Recurrent falls unknown etiology. On examination has moderate to significant atrophy of proximal muscles, entire chest and abdomen. Rule out myopathy. Also had cervical and lumbosacral spondylosis that can give component of falls. Also had hypoglycemia during this admission and not unsure if patient has hypoglycemic events at home which can cause to generalized weakness and falls. * Questionable transient dysarthria. Does not appears due to stroke or TIA. Possible lack of dentures (per patient his baseline) vs cannot rule out myopathy. * Episode of hypoglycemia (as low as 55) * Lumbosacral spondylosis at multiple level at L3-L4 L4-L5 and L5-S1 it's reported as severe on CT lumbar) * Cervical Spondylosis (moderate to severe at C5-C6 and C6-C7, C7-T1) * Acute on chronic kidney insufficiency--resolved * Mild Pancytopenia * History of coronary artery disease * COPD * History of Schizoaffective disorder * History of Bipolar * Nicotine use (1 Pack per day for years) Plan: * Patient is continued on his home medication of Plavix 75 mg daily and Lipitor 20 mg daily at bedtime. * Neuro checks every 4 hours * Continue cardiac monitoring. * Consulted PT, OT and CHILD CARE SUPERVISOR. * Consult Orthopedic team is on board.. No intervention and patient is to follow-up with them as outpatient. * Recommend EMG with NCS of bilateral upper and lower extremities with cranial nerve sample to assess for myopathy as outpatient. * Regarding possible mild pancytopenia defer the management to the primary team. * Defer the rest of the medical management to the primary team. * Upon discharge, recommend patient to follow-up with a neurologist within 2 weeks as outpatient UPDATE: I spoke with the patient's [id number] via phone and he stated that since the patient has been living with him for the past 4 months he has no falls. He stated he his head hit the cabinet door but not how and that's what lead him to call EMS. But he denies of any focal weakness patient has. He denies patient has any history of seizure. I notified him that I recommend patient to follow-up with a neurologist as outpatient and I recommend EMG with NCS study. The plan is discussed with the patient's nurse and primary team. There is no further work-up. Diallo Montes M.D. Neuro-hospitalist Time with Patient: Less than 30
[2021-04-08 14:52] VITALS: BP 112/71; PULSE 72; TEMP 98
--- NOTE | 2021-04-08 15:35 | P.PN ---
Subjective Progress Note Date: 04/08/21 Principal diagnosis: Cervical spondylosis; C3-C4 anterolisthesis; C4-C5 anterolisthesis; C5-C6 anterolisthesis; lumbosacral spondylosis L3 to S1 Patient was seen at bedside this morning resting comfortably sitting up in chair eating lunch. Patient denies any new complaints. Patient says he is not having any back pain whatsoever. Patient says he is not having any numbness/tingling down his legs. Patient denies any weakness in the arms. Patient tells me that he is going home today. Patient denies chest pain, fever, shortness breath, nausea, vomiting, loss of bowel/bladder control. Objective - Vital Signs Vital signs: Vital Signs Temp 97.4 F L 04/08/21 07:00 Pulse 74 04/08/21 11:12 Resp 16 04/08/21 07:00 BP 104/73 04/08/21 07:00 Pulse Ox 96 04/08/21 07:32 Intake & Output 04/07/21 04/08/21 04/08/21 18:59 06:59 18:59 Intake Total 480 400 120 Output Total 800 770 Balance -320 -370 120 Intake: Oral 480 400 120 Output: Urine 800 770 Other: Voiding Method Urinal Urinal # Voids 1 - Exam Inspection: Negative for any evident open fractures, significant ecchymosis/erythema, nodules. Evident scoliosis throughout the spine. Sensation: Sensation is equal, symmetric, bilaterally intact throughout the upper and lower extremities. Palpation: Patient is nontender to palpation throughout the entire exam Range of motion: Patient has full range of motion bilateral upper and lower extremities throughout exam Motor: 4+/5 in all major motor of upper and lower extremities Neurovascular status: Cap refill <3 seconds bilaterally in digits of upper extremities. Radial pulses intact, 2+ bilaterally. Special tests: Negative clonus bilaterally; negative Homans sign; Negative Hoffmans bilaterally - Labs CBC & Chem 7: 04/05/21 11:28 04/06/21 05:13 Assessment and Plan Assessment: 1. Cervical spondylosis; C3-C4 anterolisthesis; C4-C5 anterolisthesis; C5-C6 anterolisthesis; lumbosacral spondylosis L3 to S1 2. Multiple medical comorbidities Plan: 1. Cervical spondylosis; C3-C4 anterolisthesis; C4-C5 anterolisthesis; C5-C6 anterolisthesis; lumbosacral spondylosis L3 to S1 - I did discuss with the patient the findings of the cervical and lumbar CT exam. I also did discuss the results with my attending,Dr. Armenat. At this time we do not recommend any urgent/emergent orthopedic surgical intervention. We will continue to follow patient in the hospital. We recommend patient to follow-up in the outpatient setting for any further issues. Patient is orthopedically stable for discharge home. Orthopedics is signing off at this time. Please do not hesitate to contact us for any further questions. 2. Appreciate medical management 3. Appreciate consult 4. Pain management -stable at this time 5. DVT prophylaxis - heparin; Plavix 6. GI prophylaxis 7. PT/OT - weightbearing as tolerated with walker and assistance Time with Patient: Less than 30
--- NOTE | 2021-04-08 18:56 | P.DS ---
Providers Date of admission: 04/05/21 14:12 Expected date of discharge: 04/08/21 Attending physician: Irene Maguire Consults: 04/05/21 14:12 Consult Physician Urgent Consulting Provider: Diallo Montes Consult Reason/Comments: Multiple falls Do you want consulting provider notified?: Yes 04/07/21 09:43 Consult Physician Routine Consulting Provider: Gerardo Armenta Consult Reason/Comments: lumbosacral spondylosis Do you want consulting provider notified?: Yes Primary care physician: Stated None Hospital Course: Final diagnosis -Possible slurred speech, ruled out TIA -Severe lumbar spinal stenosis and lumbar degenerative disc disease -Bronchitis -Extensive nicotine use: Counseling was provided -Generalized deconditioning with multiple falls -History of coronary artery disease -Gastroesophageal reflux disease -Schizoaffective disorder -DVT prophylaxis Discharge disposition Patient is being discharged in a stable condition with guarded prognosis to home. Patient will follow-up with pcp in the outpatient setting upon discharge. Patient will also need to follow-up with orthopedics as needed on discharge. Patient will continue on oral zithromax for 3 days to complete the course. Total time taken is greater than 35 minutes. Hospital course Patient is a pleasant 68-year-old male with extensive smoking history was brought in by caregiver who is his [id number] because of concerns of slurred speech although slurred speech was not evident when he came to ER and only lasted for a few minutes. Patient and made to score was 0. Patient has exten sive smoking history presently smokes 1 pack per of cigarettes per day. Patient is dependent on ADLs and IADLs. Patient doesn't have any fever chills chest x- ray showed mild bilateral pleural effusions. Patient creatinine is 1.29 which she appears to be his baseline from historical data. Patient mental status is at his baseline. 04/06/2021 Patient is at his baseline patient looks much better today patient was evaluated by neurology please refer to the documentation for further details. Carotid Doppler did not show any significant hemodynamic stenosis. Patient had a lumbar spinal CT which showed multiple levels of degenerative to this disease and central canal stenosis may be the reason why. Patient has significant muscle atrophy in all extremities. There is a concern of myopathy. The home financial issues I'm consulting social work physical therapy and outpatient therapy will evaluate the patient.. 04/07/2021 Patient is seen and evaluated and follow-up in neurology is following. Orthopedic consult placed as the cervical spine CT shows scoliosis and multilevel spondylosis and degenerative changes with some interval degenerative progression from CT in 2011. Again orthopedics has been consulted and will await report. Patient is continued on oral Zithromax and breathing inhalational treatments and will continue and denies any worsening shortness of breath. 2-D echo was also ordered and pending. Will have PT/OT therapy evaluate the patient and social work consulted to assess discharge planning needs. Carotid Doppler was done showing no significant stenosis and shadowing plaque noted at the bulbs. 04/08/2021 Patient seen and evaluated this morning and currently sitting comfortably up in the chair on room air. Patient is anxious to go home and he lives with brother. Patient refusing rehab and has a walker at home. Patient was evaluated by orthopedics along with neurology and will need outpatient follow up on discharge. Currently no reports of chest pain, worsening shortness of breath, or palpitations. Patient is afebrile. Patient will be discharged home today. Guarded prognosis. Gen: This is 70-year-old male who is awake, alert and oriented 3, well- developed, well-nourished HEENT: Head is atraumatic, normocephalic. Pupils equal, round. Sclerae is anicteric. NECK: Supple. No JVD. No lymphadenopathy. No thyromegaly. LUNGS: Breath sounds are diminished at the bases with no wheezing or rhonchi noted. No intercostal retractions. HEART: S1, S2 are muffled ABDOMEN: Soft. Obese. Bowel sounds are present. No masses. No tenderness. EXTREMITIES: no edema No calf tenderness. NEUROLOGICAL: Alert and oriented 3, no focal deficit SKIN: no rashes or lesions noted Please refer to medication reconciliation sheet for a list of medications. Patient Condition at Discharge: Fair Plan - Discharge Summary New Discharge Prescriptions: New Azithromycin [Zithromax] 500 mg PO DAILY@1800 5 Days #5 tab Continue Clopidogrel [Plavix] 75 mg PO DAILY Divalproex ER [Depakote ER] 500 mg PO BID Midodrine HCl [ProAmatine] 10 mg PO TID Atorvastatin Calcium [Lipitor] 20 mg PO HS Folic Acid 1 mg PO DAILY #30 tab OLANZapine [OLANZapine Odt] 20 mg PO HS OLANZapine [OLANZapine Odt] 5 mg PO DAILY Ferrous Sulfate [Iron (65 MG Elemental)] 325 mg PO DAILY Discharge Medication List Clopidogrel [Plavix] 75 mg PO DAILY 04/18/19 [History] Atorvastatin Calcium [Lipitor] 20 mg PO HS 05/29/20 [History] Divalproex ER [Depakote ER] 500 mg PO BID 05/29/20 [History] Midodrine HCl [ProAmatine] 10 mg PO TID 05/29/20 [History] Folic Acid 1 mg PO DAILY #30 tab 06/01/20 [Rx] Ferrous Sulfate [Iron (65 MG Elemental)] 325 mg PO DAILY 04/05/21 [History] OLANZapine [OLANZapine Odt] 5 mg PO DAILY 04/05/21 [History] OLANZapine [OLANZapine Odt] 20 mg PO HS 04/05/21 [History] Azithromycin [Zithromax] 500 mg PO DAILY@1800 5 Days #5 tab 04/08/21 [Rx] Follow up Appointment(s)/Referral(s): None,Stated [Primary Care Provider] - 1-2 days Gerardo Armenta DO [Doctor of Osteopathic Medicine] - 1 Week Activity/Diet/Wound Care/Special Instructions: Activity limited until follow up follow up with pcp on discharge follow up with ortho Discharge Disposition: HOME SELF-CARE
== END 2021-04-08 16:55 | disposition home or self-care (01) ==
LOC: EC 11:09 → 6NMEDSUR 14:12
PROVIDERS: ADMIT Internal Medicine; ATTEND Internal Medicine
DX: M51.36 Other intervertebral disc degeneration, lumbar region (principal); M48.061 Spinal stenosis, lumbar region without neurogenic claudication; R47.81 Slurred speech; J44.9 Chronic obstructive pulmonary disease, unspecified; F17.210 Nicotine dependence, cigarettes, uncomplicated; Z71.6 Tobacco abuse counseling; R29.6 Repeated falls; I25.10 Atherosclerotic heart disease of native coronary artery without angina pectoris; K21.9 Gastro-esophageal reflux disease without esophagitis; F25.9 Schizoaffective disorder, unspecified; M62.50 Muscle wasting and atrophy, not elsewhere classified, unspecified site; M41.9 Scoliosis, unspecified; M47.897 Other spondylosis, lumbosacral region; M47.817 Spondylosis without myelopathy or radiculopathy, lumbosacral region; M47.812 Spondylosis without myelopathy or radiculopathy, cervical region; M43.12 Spondylolisthesis, cervical region; F31.9 Bipolar disorder, unspecified; R00.1 Bradycardia, unspecified; D61.818 Other pancytopenia; N18.9 Chronic kidney disease, unspecified; N17.9 Acute kidney failure, unspecified; E16.2 Hypoglycemia, unspecified; E66.9 Obesity, unspecified; Z68.20 Body mass index [BMI] 20.0-20.9, adult; Z20.822 Contact with and (suspected) exposure to COVID-19; Z53.29 Procedure and treatment not carried out because of patient's decision for other reasons; Z59.9 Problem related to housing and economic circumstances, unspecified; Z87.01 Personal history of pneumonia (recurrent); Z91.81 History of falling; Z79.02 Long term (current) use of antithrombotics/antiplatelets; Z79.899 Other long term (current) drug therapy
CPT/HCPCS: 96372 ×4; 99285; 36415; 94640 ×4; 94760 ×2; 93005; 93306; 97116; 97162; 97535; 97166; 92610; 92507; 85379; 80053; 80048; 80061; 84443; 82607; 82550; 82746; 84484; 85025; 85610; 85730; 83036; 87635; 71046; 93880; 72125; 72131; 70450; G0378 ×4; J1644 ×4

== ENCOUNTER 2021-05-17 13:03 | Inpatient (IN) | payer MEDICARE, OTHER ==
--- NOTE | 2021-05-17 13:35 | ED ---
General Adult HPI - General Stated complaint: PRIYANKA Time Seen by Provider: 05/17/21 13:06 - History of Present Illness Initial comments: Dictation was produced using [employer] dictation software. please excuse any grammatical, word or spelling errors. Chief Complaint: 70-year-old male with alleged history of bipolar disease and dementia presents emergency department for altered mental status History of Present Illness: 70-year-old male who is brought in by EMS. Patient is a poor historian. History present illness was obtained from nurse who received report from EMS and patient's cosmetic manager over the phone, Eduar Nick, at [phone]. Patient unable to provide history present illness. Allegedly patient was seen at [place] emergency department for COVID-19. He was in the emergency department for 3 hours and discharged home. He tested positive for COVID-19 that day. He was prescribed and is on an insulin inhaler. This was 4 days ago. He is ago down reports that patient has been showing worsening mental status changes. Bharat describes patient as making weird noises and having worsening speech. He was described as having these screaming fits as if there was something wrong. Patient also has been much more uncooperative recently. EMS was called by Suman. It was reports that they're familiar with patient and that his mentation seems to be once been for the last several days. Also reports the patient had fallen the bathtub earlier today. Patient also says that he fell on the bathtub. Patient has no complaints. Nicholson said that patient did seem to her neck after the fall. He is unable to provide any other details about the fall. The ROS documented in this emergency department record has been reviewed and confirmed by me. Those systems with pertinent positive or negative responses have been documented in the HPI. All other systems are other negative and/or noncontributory. PHYSICAL EXAM: General Impression: Alert and oriented x3, not in acute distress HEENT: Normocephalic atraumatic, extra-ocular movements intact, pupils equal and reactive to light bilaterally, mucous membranes moist. Cardiovascular: Heart regular rate and rhythm Chest: Able to complete full sentences, no retractions, no tachypnea Abdomen: abdomen soft, non-tender, non-distended, no organomegaly Musculoskeletal: Pulses present and equal in all extremities, no peripheral edema Motor: no focal deficits noted Neurological: CN II-XII grossly intact, no focal motor or sensory deficits noted Skin: Intact with no visualized rashes Psych: Normal affect and mood ED course: 80-year-old male past medical history of chronic mental status changes presents emergency department for altered mentation. Discussed positive for COVID-19 4 days ago. Vital signs upon arrival shows hypoxia measuring in the upper 80%. She required oxygen. Bharat states that patient does not wear any supplemental oxygen at home. EKG interpretation: Ventricular rate 67, normal sinus rhythm,. Interval 134, QRS 90, QTc 431. No MS prolongation, no QTC prolongation, no ST or T-wave changes noted. EKG compared to 04/05/2021 showing no changes. Overall, this EKG is unremarkable Laboratory evaluation obtained. Hemoccult was 7.3. This is significantly depressed compared to hemoglobin level from last month. Rectal exam was perf ormed showing no gross blood. No obvious source of bleeding when visualizing the extremities. Coag panel is unremarkable. D-dimer is except was 0.85, sodium 149 him a BUN 50 with a creatinine 1.39. Rest of labs are unremarkable. Chest x-ray shows airspace disease consistent with COVID-19. CT of the brain and C-spine shows no acute processes. Given 10 mg of IV Decadron. Patient will be admitted for hypoxic respiratory failure, anemia with no obvious source - Related Data Home Medications Medication Instructions Recorded Confirmed Clopidogrel [Plavix] 75 mg PO DAILY 04/18/19 05/17/21 Atorvastatin Calcium [Lipitor] 20 mg PO HS 05/29/20 05/17/21 Divalproex ER [Depakote ER] 500 mg PO BID 05/29/20 05/17/21 Midodrine HCl [ProAmatine] 10 mg PO TID 05/29/20 05/17/21 Ferrous Sulfate [Iron (65 MG 325 mg PO DAILY 04/05/21 05/17/21 Elemental)] OLANZapine [OLANZapine Odt] 5 mg PO DAILY 04/05/21 05/17/21 OLANZapine [OLANZapine Odt] 20 mg PO HS 04/05/21 05/17/21 predniSONE [Deltasone] 20 mg PO DAILY 05/17/21 05/17/21 Previous Rx's Medication Instructions Recorded Folic Acid 1 mg PO DAILY #30 tab 06/01/20 Allergies Allergy/AdvReac Type Severity Reaction Status Date / Time No Known Allergies Allergy Verified 05/17/21 15:33 Review of Systems ROS Statement: Those systems with pertinent positive or pertinent negative responses have been documented in the HPI. ROS Other: All systems not noted in ROS Statement are negative. Past Medical History Past Medical History: Coronary Artery Disease (CAD), COPD, GERD/Reflux, Pneumonia History of Any Multi-Drug Resistant Organisms: None Reported Past Surgical History: No Surgical Hx Reported Additional Past Surgical History / Comment(s): patient states he has never had surgery Past Anesthesia/Blood Transfusion Reactions: No Reported Reaction Additional Past Anesthesia/Blood Transfusion Reaction / Comment(s): patient states he has never received blood or anesthesia Past Psychological History: Bipolar, Schizoaffective Disorder, Schizophrenia Smoking Status: Current every day smoker Past Alcohol Use History: None Reported Past Drug Use History: None Reported - Past Family History Father History Unknown: Yes Course Vital Signs 05/17/21 05/17/21 05/17/21 13:25 15:30 16:26 Temperature 96.5 F L 97.4 F L Pulse Rate 59 L 60 60 Respiratory 24 24 18 Rate Blood Pressure 110/75 109/71 101/59 O2 Sat by Pulse 88 L 95 100 Oximetry Medical Decision Making - Lab Data Result diagrams: 05/17/21 13:30 05/17/21 13:30 Lab Results 05/17/21 05/17/21 05/17/21 Range/Units 13:30 13:30 13:30 WBC 7.0 (3.8-10.6) k/uL RBC 2.32 L (4.30-5.90) m/uL Hgb 7.3 L D (13.0-17.5) gm/dL Hct 22.9 L (39.0-53.0) % MCV 98.7 (80.0-100.0) fL MCH 31.3 (25.0-35.0) pg MCHC 31.7 (31.0-37.0) g/dL RDW 15.9 H (11.5-15.5) % Plt Count 184 (150-450) k/uL MPV 8.2 Neutrophils % 87 % Lymphocytes % 8 % Monocytes % 4 % Eosinophils % 0 % Basophils % 0 % Neutrophils # 6.0 (1.3-7.7) k/uL Lymphocytes # 0.5 L (1.0-4.8) k/uL Monocytes # 0.3 (0-1.0) k/uL Eosinophils # 0.0 (0-0.7) k/uL Basophils # 0.0 (0-0.2) k/uL Hypochromasia Slight Poikilocytosis Slight Macrocytosis Slight PT 10.2 (9.0-12.0) sec INR 0.9 (<1.2) APTT 33.0 H (22.0-30.0) sec D-Dimer 0.85 H (<0.60) mg/L FEU Sodium 149 H (137-145) mmol/L Potassium 5.3 H (3.5-5.1) mmol/L Chloride 117 H (98-107) mmol/L Carbon Dioxide 25 (22-30) mmol/L Anion Gap 7 mmol/L BUN 50 H (9-20) mg/dL Creatinine 1.39 H (0.66-1.25) mg/dL Est GFR (CKD-EPI)AfAm 58 (>60 ml/min/1.73 sqM) Est GFR (CKD-EPI)NonAf 50 (>60 ml/min/1.73 sqM) Glucose 80 (74-99) mg/dL Plasma Lactic Acid Bob (0.7-2.0) mmol/L Calcium 9.5 (8.4-10.2) mg/dL Magnesium 2.1 (1.6-2.3) mg/dL Total Bilirubin 0.8 (0.2-1.3) mg/dL AST 59 (17-59) U/L ALT 38 (4-49) U/L Alkaline Phosphatase 100 (38-126) U/L Troponin I (0.000-0.034) ng/mL NT-Pro-B Natriuret Pep pg/mL Total Protein 7.0 (6.3-8.2) g/dL Albumin 3.3 L (3.5-5.0) g/dL Stool Occult Blood (Negative) 05/17/21 05/17/21 05/17/21 Range/Units 13:30 13:30 13:30 WBC (3.8-10.6) k/uL RBC (4.30-5.90) m/uL Hgb (13.0-17.5) gm/dL Hct (39.0-53.0) % MCV (80.0-100.0) fL MCH (25.0-35.0) pg MCHC (31.0-37.0) g/dL RDW (11.5-15.5) % Plt Count (150-450) k/uL MPV Neutrophils % % Lymphocytes % % Monocytes % % Eosinophils % % Basophils % % Neutrophils # (1.3-7.7) k/uL Lymphocytes # (1.0-4.8) k/uL Monocytes # (0-1.0) k/uL Eosinophils # (0-0.7) k/uL Basophils # (0-0.2) k/uL Hypochromasia Poikilocytosis Macrocytosis PT (9.0-12.0) sec INR (<1.2) APTT (22.0-30.0) sec D-Dimer (<0.60) mg/L FEU Sodium (137-145) mmol/L Potassium (3.5-5.1) mmol/L Chloride (98-107) mmol/L Carbon Dioxide (22-30) mmol/L Anion Gap mmol/L BUN (9-20) mg/dL Creatinine (0.66-1.25) mg/dL Est GFR (CKD-EPI)AfAm (>60 ml/min/1.73 sqM) Est GFR (CKD-EPI)NonAf (>60 ml/min/1.73 sqM) Glucose (74-99) mg/dL Plasma Lactic Acid Bob 1.9 (0.7-2.0) mmol/L Calcium (8.4-10.2) mg/dL Magnesium (1.6-2.3) mg/dL Total Bilirubin (0.2-1.3) mg/dL AST (17-59) U/L ALT (4-49) U/L Alkaline Phosphatase (38-126) U/L Troponin I <0.012 (0.000-0.034) ng/mL NT-Pro-B Natriuret Pep 5790 pg/mL Total Protein (6.3-8.2) g/dL Albumin (3.5-5.0) g/dL Stool Occult Blood (Negative) 05/17/21 Range/Units 14:52 WBC (3.8-10.6) k/uL RBC (4.30-5.90) m/uL Hgb (13.0-17.5) gm/dL Hct (39.0-53.0) % MCV (80.0-100.0) fL MCH (25.0-35.0) pg MCHC (31.0-37.0) g/dL RDW (11.5-15.5) % Plt Count (150-450) k/uL MPV Neutrophils % % Lymphocytes % % Monocytes % % Eosinophils % % Basophils % % Neutrophils # (1.3-7.7) k/uL Lymphocytes # (1.0-4.8) k/uL Monocytes # (0-1.0) k/uL Eosinophils # (0-0.7) k/uL Basophils # (0-0.2) k/uL Hypochromasia Poikilocytosis Macrocytosis PT (9.0-12.0) sec INR (<1.2) APTT (22.0-30.0) sec D-Dimer (<0.60) mg/L FEU Sodium (137-145) mmol/L Potassium (3.5-5.1) mmol/L Chloride (98-107) mmol/L Carbon Dioxide (22-30) mmol/L Anion Gap mmol/L BUN (9-20) mg/dL Creatinine (0.66-1.25) mg/dL Est GFR (CKD-EPI)AfAm (>60 ml/min/1.73 sqM) Est GFR (CKD-EPI)NonAf (>60 ml/min/1.73 sqM) Glucose (74-99) mg/dL Plasma Lactic Acid Bob (0.7-2.0) mmol/L Calcium (8.4-10.2) mg/dL Magnesium (1.6-2.3) mg/dL Total Bilirubin (0.2-1.3) mg/dL AST (17-59) U/L ALT (4-49) U/L Alkaline Phosphatase (38-126) U/L Troponin I (0.000-0.034) ng/mL NT-Pro-B Natriuret Pep pg/mL Total Protein (6.3-8.2) g/dL Albumin (3.5-5.0) g/dL Stool Occult Blood Negative (Negative) Critical Care Time Critical Care Time: Yes Total Critical Care Time: 33 Disposition Clinical Impression: COVID-19 Disposition: ADMITTED IP TO THIS [facility] Condition: Critical Referrals: None,Stated [Primary Care Provider] - 1-2 days
[2021-05-17 14:03] LABS: Albumin 3.3 g/dL (3.5-5.0); Basophils % (A) 0 %; Calcium 9.5 mg/dL (8.4-10.2); Eosinophils % (A) 0 %; HCT 22.9 % (39.0-53.0); Hypochromasia Slight; Lymphocytes # (A) 0.5 k/uL (1.0-4.8); Lymphocytes % (A) 8 %; MCH 31.3 pg (25.0-35.0); MCHC 31.7 g/dL (31.0-37.0); MCV 98.7 fL (80.0-100.0); Macrocytosis Slight; Magnesium 2.1 mg/dL (1.6-2.3); Mean Platelet Volume 8.2; Monocytes # (A) 0.3 k/uL (0-1.0); Monocytes % (A) 4 %; Neutrophils % (A) 87 %; Platelet Count 184 k/uL (150-450); Poikilocytosis Slight; Potassium 5.3 mmol/L (3.5-5.1); RBC 2.32 m/uL (4.30-5.90); RDW 15.9 % (11.5-15.5); Total Bilirubin 0.8 mg/dL (0.2-1.3)
--- NOTE | 2021-05-17 14:03 | XR ---
EXAMINATION TYPE: XR chest 1V portable DATE OF EXAM: 05/17/2021 COMPARISON: 04/05/2021 HISTORY: Fall TECHNIQUE: Single frontal view of the chest is obtained. FINDINGS: There is diffuse partially consolidative opacity in the right mid lower lung zones which w as not present on the prior study. The findings suggest the presence of a trach. The pulmonary vasculature is not appear congested and the heart size is normal There is no pneumothorax or large osseous structures are IMPRESSION: Interval development of an acute airspace infiltrate in the right lung. Findings most co nsistent with acute pneumonia. Clinical correlation short-term follow-up to resolution is recommended .
[2021-05-17 14:08] LABS: HGB 7.3 gm/dL (13.0-17.5)
[2021-05-17 14:21] LABS: INR 0.9 (<1.2); Prothrombin Time 10.2 sec (9.0-12.0)
--- NOTE | 2021-05-17 14:35 | CT ---
EXAMINATION TYPE: CT brain cspine wo con DATE OF EXAM: 05/17/2021 COMPARISON: April 07, 2021 and April 05, 2021 HISTORY: Fall TECHNIQUE: CT scan of the head and cervical spine performed without contrast CT DLP: 1325.7 mGycm Automated exposure control for dose reduction was used. FINDINGS: CT head: No acute intracranial hemorrhage, midline shift or mass effect. Mcdonald-white matter differenti ation is preserved. Posterior fossa is within normal limit. A patchy low-attenuation in the deep white matter and periventricular region suggestive of chronic mi crovascular ischemic changes. Prominence of the ventricles and CSF spaces suggestive of mild brain volume loss. No acute orbital, osseous or soft tissue abnormalities. Paranasal sinuses and mastoid air cells are radiated. There is a mastoid air cell effusion which was seen on prior study. CT cervical spine: The cervical spine CT is rated by motion. The cervical junction is maintained. There is grade 1 anterior listhesis of C3-4 and C4-5 the prior s tudy. Vertebral body heights are within normal limits and not significantly changed compared to the p rior study. Bilevel mild severe narrowing of the intervertebral spaces, disc osteophyte complexes, un covertebral facet joint arthropathy changes are again demonstrated. Mild S-shaped scoliosis not signi ficantly changed compared to prior study. No acute fracture or dislocation appreciated. Prevertebral soft tissues are normal in thickness. The trachea is patent. There are new reticular nodular partially visualized ascites in the upper lobe s. Atherosclerotic calcifications are seen in the included portions of the aorta. IMPRESSION: 1. NO ACUTE INTRACRANIAL HEMORRHAGE, MIDLINE SHIFT OR MASS EFFECT. 2. ACUTE FRACTURE OR DISLOCATION SEEN IN THE CERVICAL SPINE. 3. CHANGES IN THE BRAIN DESCRIBED IN BODY OF REPORT WITHOUT SIGNIFICANT CHANGE. 4. DEGENERATIVE CHANGES IN THE CERVICAL SPINE DESCRIBED IN BODY OF REPORT WITHOUT SIGNIFICANT MARTE GE. 5. NEW RETICULAR NODULAR OPACITIES UPPER LOBES ARE NOT SEEN ON PRIOR STUDY MAY BE REFLECTIVE INFECTIO N, INFLAMMATION AND MAY BE SEEN WITH COPD/EMPHYSEMA, OR OTHER ETIOLOGY. CLINICAL CORRELATION RECOMMEN DED.
[2021-05-17] MEDS ORDERED: DEXAMETHASONE SOD PHOSPHATE 10 MG/ML 1 ML VIAL IV STA (14:49)
--- NOTE | 2021-05-17 16:33 | XR ---
EXAMINATION TYPE: XR chest 1V portable DATE OF EXAM: 05/17/2021 COMPARISON: 05/17/2021 HISTORY: 70 years Male. STUDY INDICATION GIVEN: suspect aspiration . TECHNIQUE: AP upright chest radiograph IMPRESSION: No significant change to bilateral right greater than left patchy airspace opacities. No pneumothorax or large pleural effusion.Stable hemidiaphragm eventration on the left. Nonenlarged cardiomediastinal silhouette no significant change. No acute osseous abnormalities.
[2021-05-17] MEDS ORDERED: AZITHROMYCIN 500 MG in SODIUM CHLORIDE 0.9% 250 ML IVPB STA (16:40)
[2021-05-17] MEDS ORDERED: NALOXONE 0.4 MG/ML 1 ML VIAL IV PRN (16:47)
[2021-05-17] MEDS ORDERED: SODIUM CHLORIDE 0.9% 1,000 ML IV SCH (17:00)
[2021-05-17] MEDS ORDERED: LORazepam 0.5 MG TAB PO PRN (19:29)
[2021-05-17] MEDS ORDERED: HYDROcodone/APAP 5-325MG 1 EACH TAB PO PRN (19:29)
[2021-05-17] MEDS: DIVALPROEX ER 500 MG TAB.ER.24H PO SCH (20:32)
[2021-05-17] MEDS: ATORVASTATIN 20 MG TAB PO SCH (20:32)
[2021-05-17] MEDS: OLANZapine ODT 10 MG TAB PO SCH (20:33)
--- NOTE | 2021-05-17 21:18 | HP ---
HISTORY AND PHYSICAL DATE OF SERVICE: 05/17/2021 CHIEF COMPLAINTS: Change in mental status, fall, shortness of breath and COVID-19. HISTORY OF PRESENT ILLNESS: This 70-year-old gentleman with a past medical history of CAD, COPD, GERD, apparently had a fall and the patient had some shortness of breath and change in mental status. The patient was taken to [facility] Emergency Room and COVID- 19 was negative. Subsequently patient was referred to [facility] and admitted for further evaluation and treatment. CT scan of the brain and neck showed no acute abnormality, per the ER physician. The patient was admitted for further evaluated and treatment. COVID-19 test was positive. The patient also had multiple abnormal biochemical features, including acute renal failure. The chest x-ray which was reviewed personally by me showed possible bilateral interstitial pneumonia suggestive of COVID- 19 pneumonia. There is no history of any fever, rigor or chills. The patient is mildly confused, unable to give a coherent history. Most of the history is taken from my discussion with staff and ER physician at this time. PAST MEDICAL HISTORY: History of COPD, CAD, GERD, pneumonia. MEDICATIONS: Medications prior to admission include prednisone, olanzapine, midodrine, folic acid, iron sulfate, Depakote, Plavix and Lipitor. Doses are reviewed. ALLERGIES: NONE. Family history social history, review of systems could not be taken because of the change in mental status. History of smoking in the chart. PHYSICAL EXAMINATION: Patient is conscious, confused. Pulse 74, blood pressure 86/60, respiration 20, temperature 97.4, pulse ox 90% on 7 L. HEENT: Conjunctivae normal. NECK: No jugular venous distention. CARDIOVASCULAR: S1, S2 muffled. RESPIRATION: Breath sounds diminished at the bases. Bilateral scattered rhonchi and crackles. ABDOMEN: Soft, nontender. LEGS: No edema. No swelling. NERVOUS SYSTEM: Diffusely weak. SKIN: No ulcer, rash, bleeding. JOINTS: No active deforming arthropathy. LABS: WBC 7, hemoglobin 7.3, sodium 140, potassium 5.3. ASSESSMENT: 1. Acute COVID-19 infection with acute COVID-19 bilateral interstitial pneumonia, right more than left, with acute hypoxic respiratory failure. 2. Fall and gait dysfunction. 3. Anemia, normocytic anemia of undetermined significance. 4. Elevated D-dimer. 5. Hypernatremia. 6. Hyperkalemia. 7. Acute renal failure with dehydration. 8. History of coronary artery disease. 9. History of chronic obstructive pulmonary disease. 10.Gastroesophageal reflux disease. 11.History of pneumonia. 12.History of bipolar, schizoaffective disorder and schizophrenia. 13.History of nicotine dependence. 14.Severe protein-calorie malnutrition. BMI of 19.1. 15.FULL CODE. RECOMMENDATIONS AND DISCUSSION: In this 70-year-old gentleman who presented with multiple complex medical issues, we will monitor the patient closely, continue the current medications, continue symptomatic treatment. Otherwise at this time I recommend continuing with bronchodilators. Continue with IV steroids, empiric antibiotics. Infectious disease and pulmonary consultations. Resume the home medications. Lovenox. I would also recommend a V/Q scan once the patient's condition improves because of kidney failure. Guarded prognosis. Further recommendations to follow. GARY / ALONSON: [id number] / [id number]
[2021-05-17] MEDS: ALBUTEROL HFA INHALER INHALATION SCH (23:33)
[2021-05-18] MEDS: OLANZapine ODT 5 MG TAB PO SCH (08:03)
[2021-05-18] MEDS: DIVALPROEX ER 500 MG TAB.ER.24H PO SCH ×2 (08:03→20:06)
[2021-05-18] MEDS: FERROUS SULFATE 325 MG TAB PO SCH (08:03)
[2021-05-18] MEDS: MIDODRINE 5 MG TAB PO SCH ×3 (08:04→16:33)
[2021-05-18] MEDS: CLOPIDOGREL 75 MG TAB PO SCH (08:04)
[2021-05-18] MEDS: FOLIC ACID 1 MG TAB PO SCH (08:04)
[2021-05-18] MEDS: DEXAMETHASONE SOD PHOSPHATE 10 MG/ML 1 ML VIAL IVP SCH (08:04)
[2021-05-18] MEDS: ALBUTEROL HFA INHALER INHALATION SCH ×4 (08:56→21:50)
[2021-05-18 11:58] LABS: HCT 40.2 % (39.6-50.0); HGB 12.1 g/dL (13.0-17.0); MCH 30.4 pg (27.0-32.0); MCHC 30.1 g/dL (32.0-37.0); Mean Platelet Volume 10.3 fL (9.5-12.2); NRBC Per 100 WBC 0.5 /100 WBCS (0.0-0.0); Platelet Count 130 X 10*3/uL (140-440); RBC 3.98 X 10*6/uL (4.40-5.60); RDW 15.4 % (11.5-14.5); WBC 6.48 X 10*3/uL (4.50-10.00)
[2021-05-18 12:26] LABS: African American GFR (CKD) 53.1 (60.0-200.0); Anion Gap 9.9 mmol/L (10.00-18.00); BUN/Creat Ratio 33.93 Ratio (12.00-20.00); Blood Urea Nitrogen 50.9 mg/dL (9.0-27.0); Carbon Dioxide 27.1 mmol/L (20.0-27.5); Non-African American GFR(CKD) 45.9 (60.0-200.0); Potassium 6.1 mmol/L (3.5-5.5)
[2021-05-18 12:35] LABS: Basophils # (M) 0 X 10*3/uL (0.00-0.10); Eosinophils # (M) 0 X 10*3/uL (0.04-0.35); Lymphocytes # (M) 0.13 X 10*3/uL (0.90-5.00); Monocytes # (M) 0.06 X 10*3/uL (0.20-1.00); Myelocytes % 4 % (0-0); Neutrophils # (M) 6.03 X 10*3/uL (2.00-8.90); Neutrophils % (M) 93 %
[2021-05-18] MEDS ORDERED: HALOPERIDOL LACTATE 5 MG/ML 1 ML VIAL IM PRN (12:35)
[2021-05-18] MEDS: ENOXAPARIN 40 MG/0.4 ML SYRINGE SQ SCH (13:00)
--- NOTE | 2021-05-18 15:25 | P.CNPUL ---
History of Present Illness Consult date: 05/18/21 Reason for consult: dyspnea, pneumonia History of present illness: This is a 70-year-old male patient, brought into the emergency department by a caregiver. The patient is unable to volunteer any history. He has issues with dementia and mental health. In fact he is unable to communicate. He is currently in the hospital for COVID pneumonia. The patient initially went to [place] where he was seen in the [facility] problem for COVID 19 infection. He was discharged home. This is approximately 4 days ago. Following that, the caregiver sent the patient to our hospital as the patient's condition was getting worse and apparently continued to have worsening mentation. The patient was unable to communicate time of his admission. He was mumbling and unable to make full sentences or other words. He was restless in bed. At times agitated. At times screaming. He was quite uncooperative during the evaluation. No history of any head trauma. The patient apparently had a fall and he sustained a trauma to his neck area following the fall. This occurred at home in a bathtub. In the emergency department, the patient was found to be hypoxic with a pulse ox of 80% and the patient required oxygen. The patient is currently on oxygen at 10 L high flow. Initial CAT scan of the brain and the CAT scan of the C-spine showed no acute process. The patient was given 10 mg of Decadron in the emergency department regarding his COVID 19 pneumonia. Chest x-ray showed bilateral lower lobe airspace disease. Note that the pulmonary infiltrates were worse on the right compared to the leftand the infiltrate was rather asymmetric, which obviously raises concerns for an underlying pneumonia, aspiration and the patient was given a dose of Rocephin and Zithromax in the emergency department. His white cell count is at 6.4 with a hemoglobin of 12 and a platelet count of 130. Sodium was 155 this morning with a potassium level of 6.1, BUN is at 50 with a creatinine of 1.5, LFTs are normal, lactic acid level was at 1.9, pro calcitonin level is at 0.16, d-dimer is at 0.8 and the rest of the coagulation profile is within normal limits. The patient is currently on IV Decadron. Past Medical History Past Medical History: Coronary Artery Disease (CAD), COPD, GERD/Reflux, Hyperlipidemia, Pneumonia Additional Past Medical History / Comment(s): schizoaffective, bipolar, baseline impaired/garbled speech, COPD, CAD, GERD, CKD 4 History of Any Multi-Drug Resistant Organisms: None Reported Past Surgical History: No Surgical Hx Reported Additional Past Surgical History / Comment(s): patient states he has never had surgery Past Anesthesia/Blood Transfusion Reactions: No Reported Reaction Additional Past Anesthesia/Blood Transfusion Reaction / Comment(s): patient states he has never received blood or anesthesia Past Psychological History: Bipolar, Schizoaffective Disorder, Schizophrenia Smoking Status: Current every day smoker Past Alcohol Use History: None Reported Past Drug Use History: None Reported - Past Family History Father History Unknown: Yes Medications and Allergies Home Medications Medication Instructions Recorded Confirmed Type Clopidogrel [Plavix] 75 mg PO DAILY 04/18/19 05/17/21 History Atorvastatin Calcium [Lipitor] 20 mg PO HS 05/29/20 05/17/21 History Divalproex ER [Depakote ER] 500 mg PO BID 05/29/20 05/17/21 History Midodrine HCl [ProAmatine] 10 mg PO TID 05/29/20 05/17/21 History Folic Acid 1 mg PO DAILY #30 tab 06/01/20 05/17/21 Rx Ferrous Sulfate [Iron (65 MG 325 mg PO DAILY 04/05/21 05/17/21 History Elemental)] OLANZapine [OLANZapine Odt] 5 mg PO DAILY 04/05/21 05/17/21 History OLANZapine [OLANZapine Odt] 20 mg PO HS 04/05/21 05/17/21 History predniSONE [Deltasone] 20 mg PO DAILY 05/17/21 05/17/21 History Allergies Allergy/AdvReac Type Severity Reaction Status Date / Time No Known Allergies Allergy Verified 05/17/21 15:33 Physical Exam Vitals: Vital Signs Temp Pulse Pulse Resp BP BP Pulse Ox 05/18/21 11:34 100 05/18/21 10:40 68 16 90/48 100 05/18/21 10:37 97.2 F L 63 14 70/41 100 05/18/21 06:33 97.9 F 68 17 92/58 92 L 05/18/21 01:46 97.7 F 74 20 98/60 98 05/17/21 21:15 97.4 F L 65 23 112/67 100 05/17/21 20:00 74 05/17/21 18:26 92 L 05/17/21 18:13 97.5 F L 74 20 108/66 90 L 05/17/21 17:38 66 18 101/60 98 05/17/21 16:26 60 18 101/59 100 05/17/21 15:30 97.4 F L 60 24 109/71 95 05/17/21 13:25 96.5 F L 59 L 24 110/75 88 L Intake and Output 05/17/21 05/18/21 05/18/21 22:59 06:59 14:59 Output Total 250 250 Balance -250 -250 Output: Urine 250 250 Other: Voiding Method Urinal Diaper # Voids 2 Weight 62.142 kg General Impression: Alert and awake, unable to communicate, unable to hold a conversation, unable to understand his speech, he does mumble. He is at times restless in bed. At times yells. No apparent respiratory distress. Remains on 10 L about 2 by nasal cannula. .Head exam was generally normal. There was no scleral icterus or corneal arcus. Mucous membranes were moist. HEENT: Normocephalic atraumatic, extra-ocular movements intact, pupils equal and reactive to light bilaterally, mucous membranes moist. Cardiovascular: Heart regular rate and rhythm Chest: Able to complete full sentences, no retractions, no tachypnea Abdomen: abdomen soft, non-tender, non-distended, no organomegaly Musculoskeletal: Pulses present and equal in all extremities, no peripheral edema Motor: no focal deficits noted Neurological: CN II-XII grossly intact, no focal motor or sensory deficits noted, moving all 4 extremities without any limitation Skin: Intact with no visualized rashes Psych: Unable to do Results - Laboratory Findings CBC and BMP: 05/18/21 07:13 05/18/21 07:13 PT/INR, D-dimer PT 10.2 sec (9.0-12.0) 05/17/21 13:30 INR 0.9 (<1.2) 05/17/21 13:30 D-Dimer 0.85 mg/L FEU (<0.60) H 05/17/21 13:30 Abnormal lab findings: Abnormal Labs 05/17/21 05/17/21 05/17/21 13:30 13:30 13:30 RBC 2.32 L Hgb 7.3 L D Hct 22.9 L MCV MCHC RDW 15.9 H Plt Count Absolute Nucleated RBC Lymphocytes # 0.5 L NRBC/100 WBC Diff APTT 33.0 H D-Dimer 0.85 H Sodium 149 H Potassium 5.3 H Chloride 117 H BUN 50 H Creatinine 1.39 H Albumin 3.3 L Coronavirus (PCR) 05/17/21 05/18/21 17:14 07:13 RBC 3.98 L Hgb 12.1 L Hct MCV 101.0 H MCHC 30.1 L RDW 15.4 H Plt Count 130 L Absolute Nucleated RBC 0.03 H Lymphocytes # NRBC/100 WBC Diff 0.5 H APTT D-Dimer Sodium Potassium Chloride BUN Creatinine Albumin Coronavirus (PCR) Detected A - Diagnostic Findings Chest x-ray: image reviewed Assessment and Plan Plan: 1 acute COVID 19 pneumonia. The patient's pulmonary infiltrates of asymmetric right more than left which obviously raises the concern for bacterial pneumonia/aspiration. The vaccination status for COVID 19 is not known. The exact symptom onset timing is not known. The patient was taken to the hospital in [place] 4 days ago and I'm assuming his symptoms started even prior to that. The patient has dementia and chronic positive mental health and is unable to provide any detailed history 2 acute hypoxic respiratory failure, currently on 10 L nasal cannula 3 altered mentation, worsening his baseline with her underlying dementia and schizoaffective disorder 4 acute hyperkalemia 5 acute hypernatremia likely secondary to intravascular depletion 6 chronic stage disease, stage III 7 COPD 8 coronary artery disease 9 acid reflux 7 hyperlipidemia Plan Establish an IV line. The patient has been pulling on his diabetes Recommend IV Haldol 1 mg every 3 hours for agitation Switch this patient from normal saline to D5 water at the rate of 100 mL an hour Repeat electrolytes and potassium level within next 4 hours Continue Decadron 6 mg IV every 24 hours Continue anticoagulation with Lovenox 40 mg subcu for DVT prophylaxis Switch this patient to IV Zosyn as an empiric antibiotic coverage for aspiration Keep oxygen 10 L and titrate the fluid to maintain a saturation above 90% poor prognosis and will continue to follow.
[2021-05-18] MEDS: DEXTROSE 5% IN WATER 1,000 ML IV SCH (15:33)
[2021-05-18 15:38] LABS: C Reactive Protein 9.4 mg/dL (0.00-0.80)
[2021-05-18] MEDS: PIPERACILLIN-TAZOBACTAM 3.375 GM in SODIUM CHLORIDE 0.9% 100 ML IVPB SCH ×2 (16:33→23:16)
--- NOTE | 2021-05-18 18:46 | PN ---
PROGRESS NOTE DATE OF SERVICE: 05/18/2021 This 70-year-old gentleman who was admitted with change in mental status and fall also had shortness of breath and acute COVID-19 pneumonia. The patient also has gait dysfunction. The most recent chest x-ray was reviewed personally by me. Patient is requiring 10 L of oxygen to maintain the oxygen. The patient had thrombocytopenia as well. The patient also had sodium 155 and potassium 6.1. The patient is restless as well. The COVID-19 is positive. Past medical history reviewed. Review of systems could not be taken. CURRENT MEDICATIONS: Reviewed. They include Tylenol, Tilden, Ventolin, Lipitor, Plavix. Doses are reviewed. PHYSICAL EXAMINATION: Patient is arousable, oriented x1. Pulse 61, blood pressure 91/54, respiration 19, temperature normal, pulse ox 91% on 10 L. HEENT: Conjunctivae normal. NECK: No jugular venous distention. CARDIOVASCULAR: S1, S2 muffled. RESPIRATION: Breath sounds diminished at the bases. Scattered rhonchi. ABDOMEN: Soft. LEGS: No edema. No swelling. NERVOUS SYSTEM: No focal deficit. LABS: WBC 6.3, hemoglobin 12.2. Other labs are noted. ASSESSMENT: 1. Acute COVID-19 infection with acute COVID-19 bilateral interstitial pneumonia, right more than left, with acute hypoxic respiratory failure. 2. Change in mental status, metabolic encephalopathy, multifactorial. 3. Fall and gait dysfunction. 4. Anemia, normocytic anemia of undetermined significance. 5. Hypernatremia. 6. Hyperkalemia. 7. Elevated D-dimer. 8. Acute renal failure with dehydration. 9. History of coronary artery disease. 10.History of chronic obstructive pulmonary disease. 11.Gastroesophageal reflux disease. 12.History of pneumonia. 13.History of bipolar, schizoaffective disorder and schizophrenia. 14.History of nicotine dependence. 15.Severe protein-calorie malnutrition. BMI of 19.1. 16.FULL CODE. RECOMMENDATIONS AND DISCUSSION: I recommend to continue current medications, continue with the monitoring, symptomatic treatment. Kayexalate. I would recommend Haldol p.r.n. and start IV fluids. Prognosis extremely guarded because of multiple complex medical issues. Chest x-ray reviewed. Dr. Albert's input appreciated. The patient remains FULL CODE at this time. Further recommendations to follow. MMODL / IJN: [id number] /
[2021-05-18 19:12] LABS: African American GFR (CKD) 48 (>60 ml/min/1.73 sqM); Anion Gap 7 mmol/L; Blood Urea Nitrogen 66 mg/dL (9-20); Carbon Dioxide 27 mmol/L (22-30); Chloride 121 mmol/L (98-107); Glucose 74 mg/dL (74-99); Non-African American GFR(CKD) 41 (>60 ml/min/1.73 sqM); Sodium 155 mmol/L (137-145)
[2021-05-18 19:16] LABS: Potassium 5.4 mmol/L (3.5-5.1)
[2021-05-18] MEDS: ATORVASTATIN 20 MG TAB PO SCH (20:06)
[2021-05-18] MEDS: OLANZapine ODT 10 MG TAB PO SCH (20:07)
[2021-05-18 21:09] LABS: Appearance,Urine Cloudy (Clear); Bacteria,Urine Many /hpf; Bilirubin,Urine Negative (Negative); Blood,Urine Negative (Negative); Color,Urine Yellow; Glucose,Urine (UA) Negative (Negative); Hyaline Casts,Urine 7 /lpf (0-2); Ketones,Urine Trace (Negative); Leukocyte Esterase,Urine Large (Negative); Mucus,Urine Few /hpf; Nitrite,Urine Positive (Negative); PH, Urine 5.5 (5.0-8.0); Protein,Urine Trace (Negative); RBC,Urine 2 /hpf (0-5); Specific Gravity,Urine 1.015 (1.001-1.035); Squamous Epithelial Cell,Urine <1 /hpf (0-4); Urobilinogen,Urine <2.0 mg/dL (<2.0); WBC,Urine 106 /hpf (0-5)
--- NOTE | 2021-05-18 22:35 | P.CONS ---
History of Present Illness - Reason for Consult Consult date: 05/18/21 pneumonia Requesting physician: Milena Samaniego - Chief Complaint weakness and shortnrss of breath x days - History of Present Illness History of present illness : Patient is 70-year-old male who was brought into the ER yesterday afternoon by EMS for evaluation of mental status changes and the patient was making weird noises patient apparently was recently evaluated at [facility] emergency room appointment for the patient was diagnosed with COVID and was subsequently discharged home patient on presentation to this facility was afebrile patient is hypoxic and is currently on high flow oxygen patient did have a normal white count with lymphopenia D-dimer was mildly elevated BUN/creatinine was Elevated, urine is positive, PCR was positive patient did have a chest x-ray acute airspace infiltrate in the right lung concerning for acute pneumonia patient was admitted to hospital infectious he was consulted for further management most information has been obtained from review the chart as the patient himself is not a very good historian Review of system: Positive point has been mentioned in HPI complete review could not be obtained because of underlying mental status Past medical history : Reviewed, documented below Past surgical history : Reviewed, documented below Social history: Reviewed, documented below Medications: Reviewed, as documented below EXAMINATION: Vital sigans= Reviewed and documented below GENERAL DESCRIPTION: Elderly male lying in bed, no distress. No tachypnea or accessory muscle of respiration use. HEENT: Shows Pallor , no scleral icterus. Oral mucous membrane is dry. NECK: Trachea central, no thyromegaly. LUNGS: Unlabored breathing. Decreased breath sounds at the base. No wheeze or crackle. HEART: S1, S2, regular rate and rhythm. ABDOMEN: Soft, no tenderness , guarding or rigidity EXTREMITIES: No edema of feet. SKIN: No rash, no masses palpable. NEUROLOGICAL: The patient is lethargic orientation could not be determined LABS AND RADIOLOGY: Reviewed results see below Assessment : Patient presented to hospital with weakness lethargy hypoxemia with evidence of infiltrate positive on the right side did have a positive COVID test likely related to underlying COVID-19 infection with concern for possible right lower lobe aspiration pneumonia antibiotics loaded patient is currently requiring high flow oxygen and exact symptom onset could not be determined both these 2 factor will disqualify him for remdesivir Plan: 1-we will try to obtain sputum for gram stain with culture 2-dexamethasone Lovenox zinc and ascorbic acid 3-continue Zosyn We will follow on clinical condition and cultures to further adjust medication if needed Thank you for this consultation we will follow the patient along with you Past Medical History Past Medical History: Coronary Artery Disease (CAD), COPD, GERD/Reflux, Hyperlipidemia, Pneumonia Additional Past Medical History / Comment(s): schizoaffective, bipolar, baseline impaired/garbled speech, COPD, CAD, GERD, CKD 4 History of Any Multi-Drug Resistant Organisms: None Reported Past Surgical History: No Surgical Hx Reported Additional Past Surgical History / Comment(s): patient states he has never had surgery Past Anesthesia/Blood Transfusion Reactions: No Reported Reaction Additional Past Anesthesia/Blood Transfusion Reaction / Comm: patient states he has never received blood or anesthesia Past Psychological History: Bipolar, Schizoaffective Disorder, Schizophrenia Smoking Status: Current every day smoker Past Alcohol Use History: None Reported Past Drug Use History: None Reported - Past Family History Father History Unknown: Yes Medications and Allergies Home Medications Medication Instructions Recorded Confirmed Type Clopidogrel [Plavix] 75 mg PO DAILY 04/18/19 05/17/21 History Atorvastatin Calcium [Lipitor] 20 mg PO HS 05/29/20 05/17/21 History Divalproex ER [Depakote ER] 500 mg PO BID 05/29/20 05/17/21 History Midodrine HCl [ProAmatine] 10 mg PO TID 05/29/20 05/17/21 History Folic Acid 1 mg PO DAILY #30 tab 06/01/20 05/17/21 Rx Ferrous Sulfate [Iron (65 MG 325 mg PO DAILY 04/05/21 05/17/21 History Elemental)] OLANZapine [OLANZapine Odt] 5 mg PO DAILY 04/05/21 05/17/21 History OLANZapine [OLANZapine Odt] 20 mg PO HS 04/05/21 05/17/21 History predniSONE [Deltasone] 20 mg PO DAILY 05/17/21 05/17/21 History Allergies Allergy/AdvReac Type Severity Reaction Status Date / Time No Known Allergies Allergy Verified 05/17/21 15:33 Physical Exam Vitals: Vital Signs Temp Pulse Pulse Resp BP BP Pulse Ox 05/18/21 11:34 100 05/18/21 10:40 68 16 90/48 100 05/18/21 10:37 97.2 F L 63 14 70/41 100 05/18/21 06:33 97.9 F 68 17 92/58 92 L 05/18/21 01:46 97.7 F 74 20 98/60 98 05/17/21 21:15 97.4 F L 65 23 112/67 100 05/17/21 20:00 74 05/17/21 18:26 92 L 05/17/21 18:13 97.5 F L 74 20 108/66 90 L 05/17/21 17:38 66 18 101/60 98 05/17/21 16:26 60 18 101/59 100 05/17/21 15:30 97.4 F L 60 24 109/71 95 Intake and Output 05/17/21 05/18/21 05/18/21 22:59 06:59 14:59 Output Total 250 250 Balance -250 -250 Output: Urine 250 250 Other: Voiding Method Urinal Diaper # Voids 2 Weight 62.142 kg Results CBC & Chem 7: 05/18/21 07:13 05/18/21 18:38 Labs: Abnormal Lab Results - Last 24 Hours (Table) 05/17/21 05/17/21 05/17/21 Range/Units 13:30 13:30 13:30 RBC 2.32 L (4.30-5.90) m/uL Hgb 7.3 L D (13.0-17.5) gm/dL Hct 22.9 L (39.0-53.0) % MCV (80.0-97.0) fL MCHC (32.0-37.0) g/dL RDW 15.9 H (11.5-15.5) % Plt Count (140-440) X 10*3/uL Plt Count Comment Absolute Nucleated RBC (0.00-0.00) X 10*3/uL Myelocytes % (0-0) % Lymphocytes # 0.5 L (1.0-4.8) k/uL Lymphocytes # (Manual) (0.90-5.00) X 10*3/uL Monocytes # (Manual) (0.20-1.00) X 10*3/uL Eosinophils # (Manual) (0.04-0.35) X 10*3/uL NRBC/100 WBC Diff (0.0-0.0) /100 WBCS APTT 33.0 H (22.0-30.0) sec D-Dimer 0.85 H (<0.60) mg/L FEU Sodium 149 H (137-145) mmol/L Potassium 5.3 H (3.5-5.1) mmol/L Chloride 117 H (98-107) mmol/L Anion Gap (10.00-18.00) mmol/L BUN 50 H (9-20) mg/dL Creatinine 1.39 H (0.66-1.25) mg/dL Est GFR (CKD-EPI)AfAm (60.0-200.0) Est GFR (CKD-EPI)NonAf (60.0-200.0) BUN/Creatinine Ratio (12.00-20.00) Ratio Albumin 3.3 L (3.5-5.0) g/dL Procalcitonin (0.02-0.09) ng/mL Coronavirus (PCR) (Not Detectd) 05/17/21 05/17/21 05/18/21 Range/Units 13:30 17:14 07:13 RBC 3.98 L (4.30-5.90) m/uL Hgb 12.1 L (13.0-17.5) gm/dL Hct (39.0-53.0) % MCV 101.0 H (80.0-97.0) fL MCHC 30.1 L (32.0-37.0) g/dL RDW 15.4 H (11.5-15.5) % Plt Count 130 L (140-440) X 10*3/uL Plt Count Comment DECREASED A Absolute Nucleated RBC 0.03 H (0.00-0.00) X 10*3/uL Myelocytes % 4 H (0-0) % Lymphocytes # (1.0-4.8) k/uL Lymphocytes # (Manual) 0.13 L (0.90-5.00) X 10*3/uL Monocytes # (Manual) 0.06 L (0.20-1.00) X 10*3/uL Eosinophils # (Manual) 0 L (0.04-0.35) X 10*3/uL NRBC/100 WBC Diff 0.5 H (0.0-0.0) /100 WBCS APTT (22.0-30.0) sec D-Dimer (<0.60) mg/L FEU Sodium (137-145) mmol/L Potassium (3.5-5.1) mmol/L Chloride (98-107) mmol/L Anion Gap (10.00-18.00) mmol/L BUN (9-20) mg/dL Creatinine (0.66-1.25) mg/dL Est GFR (CKD-EPI)AfAm (60.0-200.0) Est GFR (CKD-EPI)NonAf (60.0-200.0) BUN/Creatinine Ratio (12.00-20.00) Ratio Albumin (3.5-5.0) g/dL Procalcitonin 0.16 H (0.02-0.09) ng/mL Coronavirus (PCR) Detected A (Not Detectd) 05/18/21 Range/Units 07:13 RBC (4.30-5.90) m/uL Hgb (13.0-17.5) gm/dL Hct (39.0-53.0) % MCV (80.0-97.0) fL MCHC (32.0-37.0) g/dL RDW (11.5-15.5) % Plt Count (140-440) X 10*3/uL Plt Count Comment Absolute Nucleated RBC (0.00-0.00) X 10*3/uL Myelocytes % (0-0) % Lymphocytes # (1.0-4.8) k/uL Lymphocytes # (Manual) (0.90-5.00) X 10*3/uL Monocytes # (Manual) (0.20-1.00) X 10*3/uL Eosinophils # (Manual) (0.04-0.35) X 10*3/uL NRBC/100 WBC Diff (0.0-0.0) /100 WBCS APTT (22.0-30.0) sec D-Dimer (<0.60) mg/L FEU Sodium 155 H (137-145) mmol/L Potassium 6.1 H* (3.5-5.1) mmol/L Chloride 118 H (98-107) mmol/L Anion Gap 9.90 L (10.00-18.00) mmol/L BUN 50.9 H (9-20) mg/dL Creatinine (0.66-1.25) mg/dL Est GFR (CKD-EPI)AfAm 53.1 L (60.0-200.0) Est GFR (CKD-EPI)NonAf 45.9 L (60.0-200.0) BUN/Creatinine Ratio 33.93 H (12.00-20.00) Ratio Albumin (3.5-5.0) g/dL Procalcitonin (0.02-0.09) ng/mL Coronavirus (PCR) (Not Detectd)
[2021-05-18] MEDS: ACETAMINOPHEN TAB 325 MG TAB PO PRN (23:16)
[2021-05-19] MEDS: DEXTROSE 5% IN WATER 1,000 ML IV SCH ×3 (04:00→21:59)
[2021-05-19 04:17] LABS: Glucose,Whole Blood 96 mg/dL (75-99)
[2021-05-19 04:37] LABS: ABG Base Excess 1.5 mmol/L; ABG HCO3 30 mmol/L (21-25); ABG Oxygen Saturation 93.4 % (94-97); ABG PO2 82 mmHg (83-108); ABG TCO2 32 mmol/L (19-24); Allen Test Performed? Yes
--- NOTE | 2021-05-19 04:51 | XR ---
EXAMINATION TYPE: XR chest 1V portable DATE OF EXAM: 05/19/2021 COMPARISON: 05/17/2021 HISTORY: Short of breath TECHNIQUE: Single view FINDINGS: There is bilateral lower lobe interstitial and airspace infiltrate. This is worse on the ri ght side. There is no gross heart failure. Thoracic aorta is atheromatous. IMPRESSION: There are some bilateral lower lobe pneumonia which appears unchanged compared to recent exam. No obvious heart failure.
--- NOTE | 2021-05-19 05:02 | P.EN ---
A- team: Indication: AMS, Shortness of breath Arrived on Scene to find: Patient confused and in respiratory distress, not answering questions appropriately Vital signs reviewed: 110/72, SpO2 94% on 10L NC, P 82 Patient seen and examined at bedside. General: Chronically ill appearing fraile male, in moderate respiratory distress Derm: [warm], [dry] Head: [atraumatic], [normocephalic], [symmetric] Eyes: [EOMI], [no lid lag], [anicteric sclera] Mouth: [no lip lesion], [mucus membranes dry Cardiovascular: [S1S2 reg], [no murmur], [positive posterior tibial pulse bilateral], Lungs: [CTA bilateral], [no rhonchi, no rales] , some accessory muscle use Abdominal: [soft], [ nontender to palpation], [no guarding], [no appreciable organomegaly] Ext: thin extremities, [no edema], [no contractures] Neuro: [no focal neuro deficits] Psych: Confused, not answering questions Assessment: Altered mental status with hypoxic and hypercapnic respiratory failure -Transfer patient to medical ICU with high likelihood of intubation -Continue with COVID management -C/w antiepileptics Notified: Primary team and post acute care nurse notified by RN Total time spent providing critical care: 35 minutes
[2021-05-19 05:09] LABS: ABG PCO2 80 mmHg (35-45); ABG PH 7.18 (7.35-7.45)
[2021-05-19 05:14] LABS: Glucose,Whole Blood 103 mg/dL (75-99)
[2021-05-19] MEDS ORDERED: DEXMEDETOMIDINE/0.9% NACL(PMX) 400 MCG in EMPTY BAG 1 BAG IV SCH (05:30)
[2021-05-19] MEDS ORDERED: NOREPINEPHRIN 4 MG-0.9% NS PMX 4 MG/250 ML ML IV ONE (06:44)
[2021-05-19 09:00] LABS: HCT 40.7 % (39.6-50.0); HGB 12.1 g/dL (13.0-17.0); MCH 31.1 pg (27.0-32.0); MCHC 29.7 g/dL (32.0-37.0); MCV 104.6 fL (80.0-97.0); Mean Platelet Volume 10.3 fL (9.5-12.2); NRBC Per 100 WBC 0 /100 WBCS (0.0-0.0); Platelet Count 120 X 10*3/uL (140-440); RBC 3.89 X 10*6/uL (4.40-5.60); RDW 15.5 % (11.5-14.5); WBC 8.35 X 10*3/uL (4.50-10.00)
--- NOTE | 2021-05-19 09:01 | XR ---
EXAMINATION TYPE: XR chest 1V portable DATE OF EXAM: 05/19/2021 CLINICAL HISTORY: Difficulty breathing had to be intubated. TECHNIQUE: Single AP portable supine view of the chest is obtained. COMPARISON: Chest x-ray from earlier today and older studies. FINDINGS: New endotracheal tube terminates at aortic knob level approximately 4 cm above kerri. New orogastric tube coiled in gastric fundus. Background chronic emphysematous change with persistent multifocal increased opacities. Cardiac silho uette size is stable and within normal limits with atherosclerotic and ectatic aortic knob redemonstr ated. Osseous structures remain demineralized. IMPRESSION: 1. Satisfactory positioning of endotracheal and orogastric tubes. 2. Chronic emphysematous and pulmonary fibrotic changes with bilateral multifocal increased opacities redemonstrated. No significant change from earlier today.
[2021-05-19] MEDS ORDERED: CHLORHEXIDINE GLUCONATE 15 ML CUP MUCOUS MEM ONE (09:05)
[2021-05-19] MEDS: ALBUTEROL HFA INHALER INHALATION SCH ×4 (09:15→19:51)
[2021-05-19 09:18] LABS: African American GFR (CKD) 39.9 (60.0-200.0); Albumin 3.1 g/dL (3.8-4.9); Albumin/Globulin Ratio 1.07 (1.60-3.17); BUN/Creat Ratio 33.21 Ratio (12.00-20.00); Blood Urea Nitrogen 63.1 mg/dL (9.0-27.0); Calcium 9.1 mg/dL (8.7-10.3); Globulin 2.9 g/dL (1.6-3.3); Non-African American GFR(CKD) 34.5 (60.0-200.0); Potassium 5.6 mmol/L (3.5-5.5); Total Bilirubin 0.3 mg/dL (0.30-1.20)
[2021-05-19 09:26] LABS: HCT 40.3 % (39.0-53.0); Hypochromasia Marked; MCH 32.7 pg (25.0-35.0); MCHC 31.6 g/dL (31.0-37.0); MCV 103.4 fL (80.0-100.0); Macrocytosis Moderate; Mean Platelet Volume 8.3; Platelet Count 164 k/uL (150-450); RDW 15.4 % (11.5-15.5); WBC 7.1 k/uL (3.8-10.6)
[2021-05-19 09:28] LABS: HGB 12.7 gm/dL (13.0-17.5)
[2021-05-19 09:38] LABS: Calcium 8.8 mg/dL (8.4-10.2); Potassium 5.8 mmol/L (3.5-5.1)
[2021-05-19] MEDS: ENOXAPARIN 40 MG/0.4 ML SYRINGE SQ SCH (09:43)
[2021-05-19] MEDS: MIDODRINE 5 MG TAB PO SCH ×2 (09:44→14:20)
[2021-05-19] MEDS: DEXAMETHASONE SOD PHOSPHATE 10 MG/ML 1 ML VIAL IVP SCH (09:44)
[2021-05-19] MEDS: CLOPIDOGREL 75 MG TAB PO SCH (09:44)
[2021-05-19] MEDS: FERROUS SULFATE 325 MG TAB PO SCH (09:44)
[2021-05-19] MEDS: PIPERACILLIN-TAZOBACTAM 3.375 GM in SODIUM CHLORIDE 0.9% 100 ML IVPB SCH ×3 (09:44→23:19)
[2021-05-19] MEDS: FOLIC ACID 1 MG TAB PO SCH (09:44)
[2021-05-19] MEDS: OLANZapine ODT 5 MG TAB PO SCH (09:52)
[2021-05-19] MEDS: DIVALPROEX ER 500 MG TAB.ER.24H PO SCH (09:52)
[2021-05-19] MEDS ORDERED: CISATRACURIUM 2 MG/ML 5 ML VIAL IV ONE (10:03)
[2021-05-19] MEDS ORDERED: SODIUM CHLORIDE 0.9% 2,000 ML IV ONE (10:34)
--- NOTE | 2021-05-19 11:04 | XR ---
EXAMINATION TYPE: XR chest 1V portable DATE OF EXAM: 05/19/2021 CLINICAL HISTORY: New central line and OG tube advancement. TECHNIQUE: 2 AP portable semiupright views of the chest are obtained. COMPARISON: Chest x-ray from earlier today. FINDINGS: Stable endotracheal tube. Interval advancement of orogastric tube which now extends below diaphragm. New Right internal jugular central venous catheter terminating at the caval atrial juncti on. No pneumothorax noted. Background chronic emphysematous change with persistent multifocal increased opacities greatest in th e right midlung and bibasilar regions is redemonstrated. Cardiac silhouette size is stable and within normal limits with atherosclerotic and ectatic aortic knob redemonstrated. Osseous structures remain demineralized. IMPRESSION: As above.
[2021-05-19 11:20] LABS: ABG Base Excess -0.6 mmol/L; ABG HCO3 27 mmol/L (21-25); ABG PCO2 63 mmHg (35-45); ABG PH 7.24 (7.35-7.45); ABG PO2 81 mmHg (83-108); ABG TCO2 29 mmol/L (19-24)
[2021-05-19 11:23] LABS: Allen Test Performed? no
[2021-05-19 11:39] LABS: Glucose,Whole Blood 149 mg/dL (75-99)
[2021-05-19 12:38] LABS: Basophils # (M) 0 X 10*3/uL (0.00-0.10); Eosinophils # (M) 0 X 10*3/uL (0.04-0.35); Metamyelocytes % 1 % (0-0); Monocytes # (M) 0.17 X 10*3/uL (0.20-1.00); Neutrophils % (M) 91 %; RBC Morphology NORMAL
--- NOTE | 2021-05-19 16:40 | P.PN ---
Subjective Progress Note Date: 05/19/21 Principal diagnosis: Acute COVID-19 pneumonia This is a 70-year-old male patient, brought into the emergency department by a caregiver. The patient is unable to volunteer any history. He has issues with dementia and mental health. In fact he is unable to communicate. He is currently in the hospital for COVID pneumonia. The patient initially went to [place] where he was seen in the [facility] for COVID 19 infection. He was discharged home. This is approximately 4 days ago. Following that, the caregiver sent the patient to our hospital as the patient's condition was getting worse and apparently continued to have worsening mentation. The patient was unable to communicate time of his admission. He was mumbling and unable to make full sentences or other words. He was restless in bed. At times agitated. At times screaming. He was quite uncooperative during the evaluation. No history of any head trauma. The patient apparently had a fall and he sustained a trauma to his neck area following the fall. This occurred at home in a bathtub. In the emergency department, the patient was found to be hypoxic with a pulse ox of 80% and the patient required oxygen. The patient is currently on oxygen at 10 L high flow. Initial CAT scan of the brain and the CAT scan of the C-spine showed no acute process. The patient was given 10 mg of Decadron in the emergency department regarding his COVID 19 pneumonia. Chest x-ray showed bilateral lower lobe airspace disease. Note that the pulmonary infiltrates were worse on the right compared to the leftand the infiltrate was rather asymmetric, which obviously raises concerns for an underlying pneumonia, aspiration and the patient was given a dose of Rocephin and Zithromax in the emergency department. His white cell count is at 6.4 with a hemoglobin of 12 and a platelet count of 130. Sodium was 155 this morning with a potassium level of 6.1, BUN is at 50 with a creatinine of 1.5, LFTs are normal, lactic acid level was at 1.9, pro calcitonin level is at 0.16, d-dimer is at 0.8 and the rest of the coagulation profile is within normal limits. The patient is currently on IV Decadron. On 05/19/2021 patient seen in follow-up in the intensive care unit, overnight his condition continued to deteriorate, and early this morning at 4:00 on 05/19/2021 patient had rapid response team called to the bedside for concern of worsening shortness of breath, and worsening hypoxia, patient was confused and in respiratory distress, he is not answering any questions, on 10 L of oxygen his pulse ox was 94%, however his mental status was significantly altered, patient was transferred to the intensive care unit for high likelihood of intubation, this morning she was intubated and placed on mechanical ventilator, with assist-control mode of ventilation with a rate of 30, tidal on was 300, FiO2 100% and PEEP of 5. Early in the morning his blood gases showed pO2 of 82, pCO2 of 80, and pH of 7.18, this was done and FiO2 of 70%. Post intubation blood gas showed a pO2 of 81, pCO2 of 63, and pH of 7.24, this was done and FiO2 of 50%. Patient was hypotensive following intubation, he was given 2 L of fluid boluses, and his maintenance IV fluid is D5W at 50 ML per hour which will be switched to normal saline, he is on norepinephrine at 0.14 mics per kilo per minute, Diprivan infusion at 50 mics per kilo per minute. He remains on prophylactic Lovenox 40 mg daily, and Decadron 6 mg daily. He remains on his home medications including Lipitor, Plavix, Depakote, iron supplementation, his antipsychotics, midodrine which patient have not been able to take related to his altered mental status. Patient was also suspected to be aspirating, and he was placed on Zosyn for empiric antibiotic coverage. Today's labs have been reviewed, his white blood cell count is 7.1, hemoglobin of 12.7, sodium is 153 and patient has been on D5W at a rate of 100 ML per hour, his oral intake has been extremely poor, potassium is 5.8, chloride is 124, BUN of 69, creatinine is 1.97. Patient's extremely cachectic, and frail. This morning patient had to be intubated and placed on mechanical ventilator, we will initiate tube feedings today, consult registered dietitian for tube feeding recommendation, patient will be fluid bolused, and stabilized hemodynamically. Objective - Vital Signs Vital signs: Vital Signs Temp 95.9 F L 05/19/21 12:00 Pulse 87 05/19/21 15:00 Resp 30 H 05/19/21 15:00 BP 104/72 05/19/21 10:30 Pulse Ox 97 05/19/21 15:00 Intake & Output 05/18/21 05/19/21 05/19/21 18:59 06:59 18:59 Intake Total 1.554 2650 Output Total 200 500 Balance -200 1.554 2150 Weight 62.142 kg Intake: IV 2650 0.9 NACL bolus 2000 D5W 550 zosyn 100 Intake, IV Titration 1.554 Amount Dexmedetomidine/0.9% NaCl 1.554 (Pmx) 400 mcg In Empty Bag 1 bag @ 0.2 MCG/KG/HR 3.107 mls/hr IV .Q24H [id number] Rx#:[id number] Output: Urine 200 500 Other: Voiding Method Indwelling Catheter # Voids 2 ABP, PAP, CO, CI - Last Documented Arterial Blood Pressure 112/56 - Exam GENERAL EXAM: Extremely frail and cachectic 70-year-old white male, intubated, and sedated on assist control mode of ventilation with a rate of 30, tidal on his 300, FiO2 100% and PEEP of 5, comfortable in no apparent distress. HEAD: Normocephalic/atraumatic. EYES: Normal reaction of pupils, equal size. Conjunctiva pink, sclera white. NOSE: Clear with pink turbinates. THROAT: No erythema or exudates. NECK: No masses, no JVD, no thyroid enlargement, no adenopathy. CHEST: No chest wall deformity. Symmetrical expansion. LUNGS: Equal air entry with diminished breath sounds and crackles CVS: Regular rate and rhythm, normal S1 and S2, no gallops, no murmurs, no rubs ABDOMEN: Soft, nontender. No hepatosplenomegaly, normal bowel sounds, no guarding or rigidity. EXTREMITIES: No clubbing, no edema, no cyanosis, 2+ pulses and upper and lower extremities. MUSCULOSKELETAL: Muscle strength and tone normal. SPINE: No scoliosis or deformity SKIN: No rashes CENTRAL NERVOUS SYSTEM: Sedated, intubated No focal deficits, tone is normal in all 4 extremities. - Labs CBC & Chem 7: 05/19/21 09:03 05/19/21 09:03 Labs: Abnormal Lab Results - Last 24 Hours (Table) 05/18/21 05/18/21 05/19/21 Range/Units 18:38 20:40 04:35 RBC (4.40-5.60) X 10*6/uL Hgb (13.0-17.0) g/dL MCV (80.0-97.0) fL MCHC (32.0-37.0) g/dL RDW (11.5-14.5) % Plt Count (140-440) X 10*3/uL Plt Count Comment Metamyelocytes % (0-0) % Lymphocytes # (Manual) (0.90-5.00) X 10*3/uL Monocytes # (Manual) (0.20-1.00) X 10*3/uL Eosinophils # (Manual) (0.04-0.35) X 10*3/uL ABG pH 7.18 L* (7.35-7.45) ABG pCO2 80 H* (35-45) mmHg ABG pO2 82 L (83-108) mmHg ABG HCO3 30 H (21-25) mmol/L ABG Total CO2 32 H (19-24) mmol/L ABG O2 Saturation 93.4 L (94-97) % Sodium 155 H (137-145) mmol/L Potassium 5.4 H (3.5-5.1) mmol/L Chloride 121 H (98-107) mmol/L BUN 66 H (9-20) mg/dL Creatinine 1.64 H (0.66-1.25) mg/dL Est GFR (CKD-EPI)AfAm (60.0-200.0) Est GFR (CKD-EPI)NonAf (60.0-200.0) BUN/Creatinine Ratio (12.00-20.00) Ratio Glucose (74-99) mg/dL POC Glucose (mg/dL) (75-99) mg/dL AST (14-35) U/L Total Protein (6.2-8.2) g/dL Albumin (3.8-4.9) g/dL Albumin/Globulin Ratio (1.60-3.17) g/dL Urine Protein Trace H (Negative) Urine Ketones Trace H (Negative) Ur Leukocyte Esterase Large H (Negative) Urine WBC 106 H (0-5) /hpf Urine Bacteria Many H (None) /hpf Hyaline Casts 7 H (0-2) /lpf Urine Mucus Few H (None) /hpf 05/19/21 05/19/21 05/19/21 Range/Units 05:12 05:32 05:32 RBC 3.89 L (4.40-5.60) X 10*6/uL Hgb 12.1 L (13.0-17.0) g/dL MCV 104.6 H (80.0-97.0) fL MCHC 29.7 L (32.0-37.0) g/dL RDW 15.5 H (11.5-14.5) % Plt Count 120 L (140-440) X 10*3/uL Plt Count Comment DECREASED A Metamyelocytes % 1 H (0-0) % Lymphocytes # (Manual) 0.50 L (0.90-5.00) X 10*3/uL Monocytes # (Manual) 0.17 L (0.20-1.00) X 10*3/uL Eosinophils # (Manual) 0 L (0.04-0.35) X 10*3/uL ABG pH (7.35-7.45) ABG pCO2 (35-45) mmHg ABG pO2 (83-108) mmHg ABG HCO3 (21-25) mmol/L ABG Total CO2 (19-24) mmol/L ABG O2 Saturation (94-97) % Sodium 157 H (137-145) mmol/L Potassium 5.6 H (3.5-5.1) mmol/L Chloride 121 H (98-107) mmol/L BUN 63.1 H (9-20) mg/dL Creatinine 1.9 H (0.66-1.25) mg/dL Est GFR (CKD-EPI)AfAm 39.9 L (60.0-200.0) Est GFR (CKD-EPI)NonAf 34.5 L (60.0-200.0) BUN/Creatinine Ratio 33.21 H (12.00-20.00) Ratio Glucose (74-99) mg/dL POC Glucose (mg/dL) 103 H (75-99) mg/dL AST 39 H (14-35) U/L Total Protein 6.0 L (6.2-8.2) g/dL Albumin 3.1 L (3.8-4.9) g/dL Albumin/Globulin Ratio 1.07 L (1.60-3.17) g/dL Urine Protein (Negative) Urine Ketones (Negative) Ur Leukocyte Esterase (Negative) Urine WBC (0-5) /hpf Urine Bacteria (None) /hpf Hyaline Casts (0-2) /lpf Urine Mucus (None) /hpf 05/19/21 05/19/21 05/19/21 Range/Units 09:03 09:03 11:18 RBC 3.90 L (4.40-5.60) X 10*6/uL Hgb 12.7 L D (13.0-17.0) g/dL MCV 103.4 H (80.0-97.0) fL MCHC (32.0-37.0) g/dL RDW (11.5-14.5) % Plt Count (140-440) X 10*3/uL Plt Count Comment Metamyelocytes % (0-0) % Lymphocytes # (Manual) (0.90-5.00) X 10*3/uL Monocytes # (Manual) (0.20-1.00) X 10*3/uL Eosinophils # (Manual) (0.04-0.35) X 10*3/uL ABG pH 7.24 L (7.35-7.45) ABG pCO2 63 H (35-45) mmHg ABG pO2 81 L (83-108) mmHg ABG HCO3 27 H (21-25) mmol/L ABG Total CO2 29 H (19-24) mmol/L ABG O2 Saturation (94-97) % Sodium 153 H (137-145) mmol/L Potassium 5.8 H (3.5-5.1) mmol/L Chloride 124 H (98-107) mmol/L BUN 69 H (9-20) mg/dL Creatinine 1.97 H (0.66-1.25) mg/dL Est GFR (CKD-EPI)AfAm (60.0-200.0) Est GFR (CKD-EPI)NonAf (60.0-200.0) BUN/Creatinine Ratio (12.00-20.00) Ratio Glucose 144 H (74-99) mg/dL POC Glucose (mg/dL) (75-99) mg/dL AST (14-35) U/L Total Protein (6.2-8.2) g/dL Albumin (3.8-4.9) g/dL Albumin/Globulin Ratio (1.60-3.17) g/dL Urine Protein (Negative) Urine Ketones (Negative) Ur Leukocyte Esterase (Negative) Urine WBC (0-5) /hpf Urine Bacteria (None) /hpf Hyaline Casts (0-2) /lpf Urine Mucus (None) /hpf 05/19/21 Range/Units 11:36 RBC (4.40-5.60) X 10*6/uL Hgb (13.0-17.0) g/dL MCV (80.0-97.0) fL MCHC (32.0-37.0) g/dL RDW (11.5-14.5) % Plt Count (140-440) X 10*3/uL Plt Count Comment Metamyelocytes % (0-0) % Lymphocytes # (Manual) (0.90-5.00) X 10*3/uL Monocytes # (Manual) (0.20-1.00) X 10*3/uL Eosinophils # (Manual) (0.04-0.35) X 10*3/uL ABG pH (7.35-7.45) ABG pCO2 (35-45) mmHg ABG pO2 (83-108) mmHg ABG HCO3 (21-25) mmol/L ABG Total CO2 (19-24) mmol/L ABG O2 Saturation (94-97) % Sodium (137-145) mmol/L Potassium (3.5-5.1) mmol/L Chloride (98-107) mmol/L BUN (9-20) mg/dL Creatinine (0.66-1.25) mg/dL Est GFR (CKD-EPI)AfAm (60.0-200.0) Est GFR (CKD-EPI)NonAf (60.0-200.0) BUN/Creatinine Ratio (12.00-20.00) Ratio Glucose (74-99) mg/dL POC Glucose (mg/dL) 149 H (75-99) mg/dL AST (14-35) U/L Total Protein (6.2-8.2) g/dL Albumin (3.8-4.9) g/dL Albumin/Globulin Ratio (1.60-3.17) g/dL Urine Protein (Negative) Urine Ketones (Negative) Ur Leukocyte Esterase (Negative) Urine WBC (0-5) /hpf Urine Bacteria (None) /hpf Hyaline Casts (0-2) /lpf Urine Mucus (None) /hpf Microbiology - Last 24 Hours (Table) 05/17/21 22:00 Blood Culture - Preliminary Blood No Growth after 24 hours Assessment and Plan Plan: Assessment: #1. Acute hypoxic respiratory failure related to acute COVID-19 pneumonia, and possibility of bacterial infection/aspiration related pneumonia is not entirely excluded. Patient was brought into the emergency department on 05/17/2021 per EMS, patient is a poor historian, reportedly has history of bipolar disease and dementia. Came in primarily for evaluation of altered mental status. Transferred from [place] emergency department for COVID-19 related pneumonia. The patient was taken to the hospital in [place] 4 days prior to this admission and the symptom onset was probably even prior to that. Exact onset of symptoms is not known. Patient was transferred to the intensive care unit on 05/19/2021 for worsening hypoxia, and hypercapnia, and altered mental status, and was intubated on 05/19/2021 2 assist control mode of ventilation with a rate of 30, tidal on his 300, FiO2 100% and PEEP of 5. #2. Acute hypercapnic respiratory failure, related to acute aspiration, and possible COVID-19 pneumonia, intubated #3. Hypotension, related to dehydration, and possibility of septic shock is not excluded #4. Altered mental status with worsening from baseline #5. History of dementia and schizoaffective disorder #6. Acute dehydration and hypernatremia, on the D5W at 100 ML per hour, sl ightly improved #7. Chronic states 3 kidney disease #8. COPD #9. History of coronary artery disease #10. GERD/reflux #11. Hyperlipidemia #12. Acute kidney injury related to ATN, and dehydration #13. Hyperkalemia related to [place] Plan: Patient was intubated and placed on mechanical ventilator Current vent settings include assist control with a rate of 30, tidal volume will be increased to 325, FiO2 has been dropped down to 50% and PEEP will be turned up to 10 Patient is hypotensive requiring vasopressor support We'll give 2 L of fluid boluses Continue D5W at 100 ML per hour Consult dietary for nutritional recommendations were to feedings Continue current dose Decadron, we'll cut back Lovenox to 30 mg daily Continue Zosyn for empiric antibiotic coverage Panculture the patient, sent a pro-calcitonin level Overall prognosis is extremely guarded Continue to follow I performed a history & physical examination of the patient and discussed their management with my nurse practitioner, Veronica Chiu. I reviewed the nurse practitioner's note and agree with the documented findings and plan of care. Lung sounds are positive for diminished breath sounds throughout the lung fiel ds. The findings and the impression was discussed with the patient. I attest to the documentation by the nurse practitioner. Time with Patient: Greater than 30
[2021-05-19] MEDS: NOREPINEPHRINE 4 MG in SODIUM CHLORIDE 0.9% 250 ML IV SCH ×2 (17:30→21:00)
--- NOTE | 2021-05-19 17:41 | PCN ---
PROCEDURE NOTE OPERATIVE REPORT: Placement of the right brachial arterial line. PREOPERATIVE DIAGNOSIS: Acute hypoxic respiratory failure secondary to COVID 19 pneumonia. POSTOPERATIVE DIAGNOSIS: Acute hypoxic respiratory failure secondary to COVID 19 pneumonia. ANESTHESIA: Used none deployed. PROCEDURE DETAILS: The patient was placed in the supine position. The right brachial artery was palpated, cannulated easily and a guidewire was placed. A Cook's catheter was inserted over the guidewire, the guidewire was removed. Good blood flow and good waveform noted, no complications. Line was secured using 3.0 silk sutures. MMODL / IJN: [id number] /
--- NOTE | 2021-05-19 17:41 | PCN ---
PROCEDURE NOTE OPERATIVE REPORT: Placement of a right IJ triple-lumen catheter/central line. PREOPERATIVE DIAGNOSIS: Acute hypoxic respiratory failure secondary to COVID 19 pneumonia. POSTOPERATIVE DIAGNOSIS: Acute hypoxic respiratory failure secondary to COVID 19 pneumonia. ANESTHESIA USED: 2 mL of 1% lidocaine. PROCEDURE: The patient was placed in a Trendelenburg position, the area of the right neck was prepared in a sterile fashion, drapes were applied, and the area was locally anesthetized with lidocaine. Using the anterior approach, the right IJ vein was easily cannulated, and a guidewire was placed. The area around the guidewire was dilated. Then a triple-lumen catheter was inserted over the guidewire, and the guidewire was removed. Good blood flow noted. There was a good blood flow in the 3 different ports of the triple-lumen catheter. The line was secured using 3.0 silk sutures. Chest x- ray postoperatively showed no complications and adequate placement of the central line. Again, the procedure was well tolerated without complications. MMODL / IJN: [id number] /
[2021-05-19] MEDS ORDERED: INSULIN REGULAR 100 UNIT/ML VIAL (IV) IV ONE (18:30)
[2021-05-19] MEDS ORDERED: SODIUM ZIRCONIUM CYCLOSILICATE 10 GM PACKET PO ONE (18:30)
[2021-05-19] MEDS: DEXTROSE 50% SYRINGE 50 ML IVP STA (21:56)
[2021-05-19] MEDS: VALPROATE SODIUM 250 MG in SODIUM CHLORIDE 0.9% 100 ML IVPB SCH (21:58)
[2021-05-19] MEDS: ATORVASTATIN 20 MG TAB PO SCH (22:12)
[2021-05-19 23:20] LABS: Hepatitis B Surface AB- Quant 3.5 mIU/mL; Hepatitis B Surface Antibody Nonreactive (Nonreactive); Hepatitis B Surface Antigen Nonreactive (Nonreactive)
--- NOTE | 2021-05-20 02:01 | P.PN ---
Subjective Progress Note Date: 05/19/21 This is a 70-year-old male who was recently admitted with change in mental status and fall and also shortness of breath and acute COVID-19 pneumonia and being closely monitored. Patient was continued on high flow oxygen although respiratory status continued to deteriorate and an A team was called. Patient was brought to the ICU for close monitoring and x-ray showed some bilateral lower lobe pneumonia which appears unchanged compared to recent exam with no obvious heart failure. Patient was placed on mechanical vent and intubated and sedated and is being closely monitored. Multiple medical consultations including pulmonary and infectious disease following closely. Review of systems: Unable to obtain as patient is mechanically intubated and sedated Labs: WBC is 7.1, hemoglobin is 12.7, platelets are 164, sodium is 153, potassium 5.8, BUN 69, creatinine 1.97, calcium 8.8 Active Medications Acetaminophen (Acetaminophen Tab 325 Mg Tab) 650 mg PO Q6HR PRN PRN Reason: Mild Pain or Fever > 100.5 Last Admin: 05/18/21 23:16 Dose: 650 mg Documented by: Hydrocodone Bitart/Acetaminophen (Hydrocodone/Apap 5-325mg 1 Each Tab) 1 each PO Q6HR PRN PRN Reason: Pain Last Admin: 05/18/21 00:26 Dose: 1 each Documented by: Albuterol Sulfate (Albuterol Hfa Inhaler) 2 puff INHALATION RT-QID [facility] Last Admin: 05/19/21 15:45 Dose: 2 puff Documented by: Atorvastatin Calcium (Atorvastatin 20 Mg Tab) 20 mg PO HS [facility] Last Admin: 05/18/21 20:06 Dose: 20 mg Documented by: Clopidogrel Bisulfate (Clopidogrel 75 Mg Tab) 75 mg PO DAILY [facility] Last Admin: 05/19/21 09:44 Dose: 75 mg Documented by: Dexamethasone Sodium Phosphate (Dexamethasone Sod Phosphate 10 Mg/Ml 1 Ml Vial) 6 mg IVP DAILY [facility] Last Admin: 05/19/21 09:44 Dose: 6 mg Documented by: Divalproex Sodium (Divalproex Er 500 Mg Tab.Er.24h) 500 mg PO BID [facility] Last Admin: 05/19/21 09:52 Dose: Not Given Documented by: Enoxaparin Sodium (Enoxaparin 40 Mg/0.4 Ml Syringe) 40 mg SQ DAILY [facility] Last Admin: 05/19/21 09:43 Dose: 40 mg Documented by: Ferrous Sulfate (Ferrous Sulfate 325 Mg Tab) 325 mg PO DAILY [facility] Last Admin: 05/19/21 09:44 Dose: 325 mg Documented by: Folic Acid (Folic Acid 1 Mg Tab) 1 mg PO DAILY [facility] Last Admin: 05/19/21 09:44 Dose: 1 mg Documented by: Haloperidol Lactate (Haloperidol Lactate 5 Mg/Ml 1 Ml Vial) 5 mg IM Q6HR PRN PRN Reason: Agitation or Acute Psychosis Piperacillin Sod/Tazobactam (Sod 3.375 gm/ Sodium Chloride) 100 mls @ 25 mls/hr IVPB Q8HR [facility] Last Admin: 05/19/21 09:44 Dose: 25 mls/hr Documented by: Dextrose/Water (Dextrose 5%-Water Iv Soln) 1,000 mls @ 100 mls/hr IV .Q10H [facility] Last Admin: 05/19/21 14:12 Dose: 100 mls/hr Documented by: Dexmedetomidine HCl 400 mcg/ (IV Solution) 100 mls @ 3.107 mls/hr IV .Q24H [facility]; Protocol Last Titration: 05/19/21 06:15 Dose: 0.3 mcg/kg/hr, 4.661 mls/hr Documented by: Norepinephrine Bitartrate 4 mg (/ Sodium Chloride) 254 mls @ 11.838 mls/hr IV .[id number] [facility]; Protocol Propofol 1,000 mg/ IV Solution 100 mls @ 0 mls/hr IV .Q0M [facility]; Protocol Midodrine (Midodrine 5 Mg Tab) 10 mg PO AC-TID [facility] Last Admin: 05/19/21 14:20 Dose: 10 mg Documented by: Naloxone HCl (Naloxone 0.4 Mg/Ml 1 Ml Vial) 0.2 mg IV Q2M PRN PRN Reason: Opioid Reversal Olanzapine (Olanzapine Odt 10 Mg Tab) 20 mg PO HS [facility] Last Admin: 05/18/21 20:07 Dose: 20 mg Documented by: Olanzapine (Olanzapine Odt 5 Mg Tab) 5 mg PO DAILY [facility] Last Admin: 05/19/21 09:52 Dose: Not Given Documented by: Physical Exam: Gen: this is a 70-year-old male currently sedated and intubated. Temp is 95.9F, pulse is 84, respirations are 30, arterial blood pressure is 107/54, oxygen saturation is 97% on 50% mechanical ventilation with a PEEP of 10 HEENT: Head is atraumatic, normocephalic. Pupils equal, round. Sclerae is anicteric. NECK: Supple. No JVD. No lymphadenopathy. No thyromegaly. LUNGS: Diminished breath sounds bilaterally with coarse rhonchi and crackles noted. No intercostal retractions. HEART: S1, S2 are muffled ABDOMEN: Soft. Bowel sounds are present. No masses. No tenderness. EXTREMITIES: No pedal edema. No calf tenderness. NEUROLOGICAL: Patient is currently intubated and sedated Assessment: Acute COVID-19 infection with acute COVID-19 bilateral interstitial pneumonia, right more than left with acute hypoxic respiratory failure, now requiring mechanical ventilation Change in mental status, metabolic encephalopathy, multifactorial Falling gait dysfunction Anemia, normocytic anemia of undetermined significance Hypernatremia Hyperkalemia Elevated d-dimer acute renal failure with dehydration history of coronary artery disease history of chronic obstructive pulmonary disease Gastroesophageal reflux disease history of pneumonia history of bipolar, schizoaffective disorder and schizophrenia History of nicotine dependence Severe protein calorie malnutrition with a BMI of 19.1 Full code Plan: Recommend to continue with current medications and follow along closely with [facility] medical consultations. Prognosis remains guarded with multiple complex medical issues noted. Patient continued to have respiratory distress and sent to the ICU for close monitoring and was placed on mechanical ventilation and is currently intubated and sedated. Patient continues on mechanical ventilation with an FiO2 of 50% and PEEP is 10. Recommend continue with current medications and patient has been maintained on IV antibiotics with infectious disease following.. Chest x-ray reviewed as mentioned above. Recommend repeat labs and chest x-ray in the morning. Patient's kidney functions continue to be elevated along with elevated sodium and potassium and will continue on D5 in w ater and have consulted nephrology and appreciate input and recommendations. Again due to multiple complex medical issues prognosis is quite guarded. Objective - Vital Signs Vital signs: Vital Signs Temp 91.4 F L 05/19/21 05:00 Pulse 130 H 05/19/21 05:00 Resp 8 L 05/19/21 05:20 BP 46/28 05/19/21 07:28 Pulse Ox 95 05/19/21 05:15 Intake & Output 05/18/21 05/19/21 05/19/21 18:59 06:59 18:59 Intake Total 1.554 Output Total 200 Balance -200 1.554 Intake: Intake, IV Titration 1.554 Amount Dexmedetomidine/0.9% NaCl 1.554 (Pmx) 400 mcg In Empty Bag 1 bag @ 0.2 MCG/KG/HR 3.107 mls/hr IV .Q24H [facility] Rx#:[id number] Output: Urine 200 Other: Voiding Method Indwelling Catheter # Voids 2 - Labs CBC & Chem 7: 05/19/21 09:03 05/19/21 09:03 Labs: Abnormal Lab Results - Last 24 Hours (Table) 05/17/21 05/18/21 05/18/21 Range/Units 13:30 07:13 07:13 RBC (4.40-5.60) X 10*6/uL Hgb (13.0-17.0) g/dL MCV (80.0-97.0) fL MCHC (32.0-37.0) g/dL RDW (11.5-14.5) % Plt Count (140-440) X 10*3/uL Plt Count Comment DECREASED A Myelocytes % 4 H (0-0) % Lymphocytes # (Manual) 0.13 L (0.90-5.00) X 10*3/uL Monocytes # (Manual) 0.06 L (0.20-1.00) X 10*3/uL Eosinophils # (Manual) 0 L (0.04-0.35) X 10*3/uL ABG pH (7.35-7.45) ABG pCO2 (35-45) mmHg ABG pO2 (83-108) mmHg ABG HCO3 (21-25) mmol/L ABG Total CO2 (19-24) mmol/L ABG O2 Saturation (94-97) % Sodium 155 H (135-145) mmol/L Potassium 6.1 H* (3.5-5.5) mmol/L Chloride 118 H (96-109) mmol/L Anion Gap 9.90 L (10.00-18.00) mmol/L BUN 50.9 H (9.0-27.0) mg/dL Creatinine (0.66-1.25) mg/dL Est GFR (CKD-EPI)AfAm 53.1 L (60.0-200.0) Est GFR (CKD-EPI)NonAf 45.9 L (60.0-200.0) BUN/Creatinine Ratio 33.93 H (12.00-20.00) Ratio Glucose (74-99) mg/dL POC Glucose (mg/dL) (75-99) mg/dL AST (14-35) U/L C-Reactive Protein (0.00-0.80) mg/dL Total Protein (6.2-8.2) g/dL Albumin (3.8-4.9) g/dL Albumin/Globulin Ratio (1.60-3.17) g/dL Procalcitonin 0.16 H (0.02-0.09) ng/mL Urine Protein (Negative) Urine Ketones (Negative) Ur Leukocyte Esterase (Negative) Urine WBC (0-5) /hpf Urine Bacteria (None) /hpf Hyaline Casts (0-2) /lpf Urine Mucus (None) /hpf 05/18/21 05/18/21 05/18/21 Range/Units 07:13 18:38 20:40 RBC (4.40-5.60) X 10*6/uL Hgb (13.0-17.0) g/dL MCV (80.0-97.0) fL MCHC (32.0-37.0) g/dL RDW (11.5-14.5) % Plt Count (140-440) X 10*3/uL Plt Count Comment Myelocytes % (0-0) % Lymphocytes # (Manual) (0.90-5.00) X 10*3/uL Monocytes # (Manual) (0.20-1.00) X 10*3/uL Eosinophils # (Manual) (0.04-0.35) X 10*3/uL ABG pH (7.35-7.45) ABG pCO2 (35-45) mmHg ABG pO2 (83-108) mmHg ABG HCO3 (21-25) mmol/L ABG Total CO2 (19-24) mmol/L ABG O2 Saturation (94-97) % Sodium 155 H (135-145) mmol/L Potassium 5.4 H (3.5-5.5) mmol/L Chloride 121 H (96-109) mmol/L Anion Gap (10.00-18.00) mmol/L BUN 66 H (9.0-27.0) mg/dL Creatinine 1.64 H (0.66-1.25) mg/dL Est GFR (CKD-EPI)AfAm (60.0-200.0) Est GFR (CKD-EPI)NonAf (60.0-200.0) BUN/Creatinine Ratio (12.00-20.00) Ratio Glucose (74-99) mg/dL POC Glucose (mg/dL) (75-99) mg/dL AST (14-35) U/L C-Reactive Protein 9.40 H (0.00-0.80) mg/dL Total Protein (6.2-8.2) g/dL Albumin (3.8-4.9) g/dL Albumin/Globulin Ratio (1.60-3.17) g/dL Procalcitonin (0.02-0.09) ng/mL Urine Protein Trace H (Negative) Urine Ketones Trace H (Negative) Ur Leukocyte Esterase Large H (Negative) Urine WBC 106 H (0-5) /hpf Urine Bacteria Many H (None) /hpf Hyaline Casts 7 H (0-2) /lpf Urine Mucus Few H (None) /hpf 05/19/21 05/19/21 05/19/21 Range/Units 04:35 05:12 05:32 RBC 3.89 L (4.40-5.60) X 10*6/uL Hgb 12.1 L (13.0-17.0) g/dL MCV 104.6 H (80.0-97.0) fL MCHC 29.7 L (32.0-37.0) g/dL RDW 15.5 H (11.5-14.5) % Plt Count 120 L (140-440) X 10*3/uL Plt Count Comment Myelocytes % (0-0) % Lymphocytes # (Manual) (0.90-5.00) X 10*3/uL Monocytes # (Manual) (0.20-1.00) X 10*3/uL Eosinophils # (Manual) (0.04-0.35) X 10*3/uL ABG pH 7.18 L* (7.35-7.45) ABG pCO2 80 H* (35-45) mmHg ABG pO2 82 L (83-108) mmHg ABG HCO3 30 H (21-25) mmol/L ABG Total CO2 32 H (19-24) mmol/L ABG O2 Saturation 93.4 L (94-97) % Sodium (135-145) mmol/L Potassium (3.5-5.5) mmol/L Chloride (96-109) mmol/L Anion Gap (10.00-18.00) mmol/L BUN (9.0-27.0) mg/dL Creatinine (0.66-1.25) mg/dL Est GFR (CKD-EPI)AfAm (60.0-200.0) Est GFR (CKD-EPI)NonAf (60.0-200.0) BUN/Creatinine Ratio (12.00-20.00) Ratio Glucose (74-99) mg/dL POC Glucose (mg/dL) 103 H (75-99) mg/dL AST (14-35) U/L C-Reactive Protein (0.00-0.80) mg/dL Total Protein (6.2-8.2) g/dL Albumin (3.8-4.9) g/dL Albumin/Globulin Ratio (1.60-3.17) g/dL Procalcitonin (0.02-0.09) ng/mL Urine Protein (Negative) Urine Ketones (Negative) Ur Leukocyte Esterase (Negative) Urine WBC (0-5) /hpf Urine Bacteria (None) /hpf Hyaline Casts (0-2) /lpf Urine Mucus (None) /hpf 05/19/21 05/19/21 05/19/21 Range/Units 05:32 09:03 09:03 RBC 3.90 L (4.40-5.60) X 10*6/uL Hgb 12.7 L D (13.0-17.0) g/dL MCV 103.4 H (80.0-97.0) fL MCHC (32.0-37.0) g/dL RDW (11.5-14.5) % Plt Count (140-440) X 10*3/uL Plt Count Comment Myelocytes % (0-0) % Lymphocytes # (Manual) (0.90-5.00) X 10*3/uL Monocytes # (Manual) (0.20-1.00) X 10*3/uL Eosinophils # (Manual) (0.04-0.35) X 10*3/uL ABG pH (7.35-7.45) ABG pCO2 (35-45) mmHg ABG pO2 (83-108) mmHg ABG HCO3 (21-25) mmol/L ABG Total CO2 (19-24) mmol/L ABG O2 Saturation (94-97) % Sodium 157 H 153 H (135-145) mmol/L Potassium 5.6 H 5.8 H (3.5-5.5) mmol/L Chloride 121 H 124 H (96-109) mmol/L Anion Gap (10.00-18.00) mmol/L BUN 63.1 H 69 H (9.0-27.0) mg/dL Creatinine 1.9 H 1.97 H (0.66-1.25) mg/dL Est GFR (CKD-EPI)AfAm 39.9 L (60.0-200.0) Est GFR (CKD-EPI)NonAf 34.5 L (60.0-200.0) BUN/Creatinine Ratio 33.21 H (12.00-20.00) Ratio Glucose 144 H (74-99) mg/dL POC Glucose (mg/dL) (75-99) mg/dL AST 39 H (14-35) U/L C-Reactive Protein (0.00-0.80) mg/dL Total Protein 6.0 L (6.2-8.2) g/dL Albumin 3.1 L (3.8-4.9) g/dL Albumin/Globulin Ratio 1.07 L (1.60-3.17) g/dL Procalcitonin (0.02-0.09) ng/mL Urine Protein (Negative) Urine Ketones (Negative) Ur Leukocyte Esterase (Negative) Urine WBC (0-5) /hpf Urine Bacteria (None) /hpf Hyaline Casts (0-2) /lpf Urine Mucus (None) /hpf 05/19/21 05/19/21 Range/Units 11:18 11:36 RBC (4.40-5.60) X 10*6/uL Hgb (13.0-17.0) g/dL MCV (80.0-97.0) fL MCHC (32.0-37.0) g/dL RDW (11.5-14.5) % Plt Count (140-440) X 10*3/uL Plt Count Comment Myelocytes % (0-0) % Lymphocytes # (Manual) (0.90-5.00) X 10*3/uL Monocytes # (Manual) (0.20-1.00) X 10*3/uL Eosinophils # (Manual) (0.04-0.35) X 10*3/uL ABG pH 7.24 L (7.35-7.45) ABG pCO2 63 H (35-45) mmHg ABG pO2 81 L (83-108) mmHg ABG HCO3 27 H (21-25) mmol/L ABG Total CO2 29 H (19-24) mmol/L ABG O2 Saturation (94-97) % Sodium (135-145) mmol/L Potassium (3.5-5.5) mmol/L Chloride (96-109) mmol/L Anion Gap (10.00-18.00) mmol/L BUN (9.0-27.0) mg/dL Creatinine (0.66-1.25) mg/dL Est GFR (CKD-EPI)AfAm (60.0-200.0) Est GFR (CKD-EPI)NonAf (60.0-200.0) BUN/Creatinine Ratio (12.00-20.00) Ratio Glucose (74-99) mg/dL POC Glucose (mg/dL) 149 H (75-99) mg/dL AST (14-35) U/L C-Reactive Protein (0.00-0.80) mg/dL Total Protein (6.2-8.2) g/dL Albumin (3.8-4.9) g/dL Albumin/Globulin Ratio (1.60-3.17) g/dL Procalcitonin (0.02-0.09) ng/mL Urine Protein (Negative) Urine Ketones (Negative) Ur Leukocyte Esterase (Negative) Urine WBC (0-5) /hpf Urine Bacteria (None) /hpf Hyaline Casts (0-2) /lpf Urine Mucus (None) /hpf Microbiology - Last 24 Hours (Table) 05/17/21 22:00 Blood Culture - Preliminary Blood No Growth after 24 hours
[2021-05-20] MEDS: VALPROATE SODIUM 250 MG in SODIUM CHLORIDE 0.9% 100 ML IVPB SCH ×4 (02:21→20:10)
[2021-05-20] MEDS: NOREPINEPHRINE 4 MG in SODIUM CHLORIDE 0.9% 250 ML IV SCH ×3 (02:59→11:43)
[2021-05-20 03:37] LABS: HCT 39.4 % (39.0-53.0); HGB 12.1 gm/dL (13.0-17.5); Hypochromasia Moderate; MCHC 30.7 g/dL (31.0-37.0); MCV 101.1 fL (80.0-100.0); Macrocytosis Slight; Mean Platelet Volume 8.1; Platelet Count 223 k/uL (150-450); Poikilocytosis Slight; RDW 15.2 % (11.5-15.5); WBC 14.6 k/uL (3.8-10.6)
[2021-05-20 03:45] LABS: African American GFR (CKD) 36 (>60 ml/min/1.73 sqM); Albumin 2.8 g/dL (3.5-5.0); Anion Gap 7 mmol/L; Blood Urea Nitrogen 55 mg/dL (9-20); Calcium 8.4 mg/dL (8.4-10.2); Carbon Dioxide 25 mmol/L (22-30); Chloride 121 mmol/L (98-107); Non-African American GFR(CKD) 31 (>60 ml/min/1.73 sqM); Potassium 4.7 mmol/L (3.5-5.1); Sodium 153 mmol/L (137-145); Total Bilirubin 0.5 mg/dL (0.2-1.3)
[2021-05-20 03:49] LABS: ALT 24 U/L (4-49); AST 22 U/L (17-59); Alkaline Phosphatase 78 U/L (38-126); C Reactive Protein 7.2 mg/dL (<1.0); LDH 560 U/L (313-618)
[2021-05-20 03:54] LABS: Glucose <20 mg/dL (74-99)
[2021-05-20] MEDS ORDERED: DEXTROSE 50% SYRINGE 50 ML IVP ONE (03:56)
[2021-05-20 04:03] LABS: Glucose,Whole Blood 208 mg/dL (75-99)
[2021-05-20 04:13] LABS: Band Neutrophils % 2 %; Lymphocytes # (M) 0.88 k/uL (1.0-4.8); Metamyelocytes # (M) 0.44 k/uL (0); Metamyelocytes % 3 %; Monocytes # (M) 0.44 k/uL (0-1.0); Neutrophils % (M) 87 %; Nucleated Red Blood Cells 0 /100 WBC (0-0); Total Cells Counted 200
[2021-05-20 05:13] LABS: ABG HCO3 26 mmol/L (21-25); ABG Oxygen Saturation 96.7 % (94-97); ABG PCO2 70 mmHg (35-45); ABG PO2 95 mmHg (83-108); ABG TCO2 29 mmol/L (19-24)
[2021-05-20 05:16] LABS: ABG PH 7.18 (7.35-7.45); Allen Test Performed? no
[2021-05-20 05:24] LABS: Glucose,Whole Blood 44 mg/dL (75-99)
[2021-05-20 05:24] LABS: Glucose,Whole Blood 47 mg/dL (75-99)
[2021-05-20] MEDS: DEXTROSE 50% SYRINGE 50 ML IVP STA (05:30)
[2021-05-20 05:52] LABS: Glucose,Whole Blood 97 mg/dL (75-99)
[2021-05-20 06:49] LABS: Glucose,Whole Blood 64 mg/dL (75-99)
[2021-05-20] MEDS: DEXTROSE 10% IN WATER 500 ML in EMPTY BAG 1 BAG IV SCH ×4 (06:49→20:11)
[2021-05-20] MEDS: ALBUTEROL HFA INHALER INHALATION SCH ×4 (07:59→19:14)
--- NOTE | 2021-05-20 08:11 | XR ---
EXAMINATION TYPE: XR chest 1V portable DATE OF EXAM: 05/20/2021 COMPARISON: 05/19/2021 INDICATION: Atypical pneumonia TECHNIQUE: Single frontal view of the chest is obtained. FINDINGS: The heart size is normal. The pulmonary vasculature is normal. Mild bibasilar infiltrates are present. A small right pleural effusion may be developmental. Endotracheal tube tip is above the kerri. Nasogastric tube transverses the thorax. Right central shailesh ous catheter tip is in the proximal right atrium. IMPRESSION: 1. Some improvement of bibasilar infiltrates more so on the right. 2. May be developing small right pleural effusion. 3. Lines and catheters discussed above
[2021-05-20 08:14] LABS: Glucose,Whole Blood 77 mg/dL (75-99)
[2021-05-20] MEDS ORDERED: SODIUM CHLORIDE 0.9% 1,000 ML IV ONE (08:42)
[2021-05-20] MEDS: FERROUS SULFATE 325 MG TAB PO SCH (09:08)
[2021-05-20] MEDS: PIPERACILLIN-TAZOBACTAM 3.375 GM in SODIUM CHLORIDE 0.9% 100 ML IVPB SCH ×2 (09:15→16:54)
[2021-05-20] MEDS: ENOXAPARIN 30 MG/0.3 ML SYRINGE SQ SCH (09:16)
[2021-05-20] MEDS: CLOPIDOGREL 75 MG TAB PO SCH (09:16)
[2021-05-20] MEDS: FOLIC ACID 1 MG TAB PO SCH (09:16)
[2021-05-20] MEDS: DEXAMETHASONE SOD PHOSPHATE 10 MG/ML 1 ML VIAL IVP SCH (09:16)
--- NOTE | 2021-05-20 10:32 | P.NPCON ---
History of Present Illness - Reason for Consult acute renal failure, chronic renal failure - History of Present Illness Reason for consultation: Acute kidney injury on chronic kidney disease History of present illness: Patient is a 70-year-old male seen in renal consultation for acute kidney injury on chronic kidney disease. Patient has chronic any disease stage III with baseline creatinine in the range of 1.2-1.4 secondary to nephrosclerosis. Creatinine on admission was 1.39 and is up at 2.07 today. Patient presented to the hospital with altered mental status. Patient initially presented to at another facility in [place] and was subsequently discharged home within a few hours. Patient did test positive for COVID-19. Per caregiver, patient was making weird noises and head screaming fits. EMS was called with a caregiver in a subsequent he brought to the hospital. Patient's currently intubated. There is concern for aspiration pneumonia as well as knees and antibiotics. Patient's sodium level was 149 on admission and peaked at 157. He did receive D5W overnight and sodium level improved to 153. However his blood sugar was extremely low and IV fluids were changed to D10. Urine output has been about 40-80 mL an hour. He is currently on 50% FiO2. No history of diabetes. I don 't see any nonsteroidals in the home medication list. Vital signs - on vasopressor support. General: Intubated. HEENT: Head exam is unremarkable. LUNGS: Breath sounds decreased. HEART: Tachycardic. ABDOMEN: No distention noted. EXTREMITITES: No edema. Past Medical History Past Medical History: Coronary Artery Disease (CAD), COPD, GERD/Reflux, Hyperlipidemia, Pneumonia Additional Past Medical History / Comment(s): schizoaffective, bipolar, baseline impaired/garbled speech, COPD, CAD, GERD, CKD 4 History of Any Multi-Drug Resistant Organisms: None Reported Past Surgical History: No Surgical Hx Reported Additional Past Surgical History / Comment(s): patient states he has never had surgery Past Anesthesia/Blood Transfusion Reactions: No Reported Reaction Additional Past Anesthesia/Blood Transfusion Reaction / Comment(s): patient states he has never received blood or anesthesia Past Psychological History: Bipolar, Schizoaffective Disorder, Schizophrenia Smoking Status: Current every day smoker Past Alcohol Use History: None Reported Past Drug Use History: None Reported - Past Family History Father History Unknown: Yes Medications and Allergies Home Medications Medication Instructions Recorded Confirmed Type Clopidogrel [Plavix] 75 mg PO DAILY 04/18/19 05/17/21 History Atorvastatin Calcium [Lipitor] 20 mg PO HS 05/29/20 05/17/21 History Divalproex ER [Depakote ER] 500 mg PO BID 05/29/20 05/17/21 History Midodrine HCl [ProAmatine] 10 mg PO TID 05/29/20 05/17/21 History Folic Acid 1 mg PO DAILY #30 tab 06/01/20 05/17/21 Rx Ferrous Sulfate [Iron (65 MG 325 mg PO DAILY 04/05/21 05/17/21 History Elemental)] OLANZapine [OLANZapine Odt] 5 mg PO DAILY 04/05/21 05/17/21 History OLANZapine [OLANZapine Odt] 20 mg PO HS 04/05/21 05/17/21 History predniSONE [Deltasone] 20 mg PO DAILY 05/17/21 05/17/21 History Allergies Allergy/AdvReac Type Severity Reaction Status Date / Time No Known Allergies Allergy Verified 05/17/21 15:33 Physical Exam Vitals: Vital Signs Temp Pulse Resp BP Pulse Ox 05/20/21 07:45 63 29 H 98 05/20/21 07:30 56 L 30 H 98 05/20/21 07:15 104 H 30 H 98 05/20/21 07:00 62 31 H 98 05/20/21 06:45 64 30 H 97 05/20/21 06:30 74 30 H 97 05/20/21 06:15 64 31 H 98 05/20/21 06:00 74 31 H 97 05/20/21 05:45 111 H 30 H 98 05/20/21 05:30 67 30 H 98 05/20/21 05:15 78 30 H 97 05/20/21 05:00 60 30 H 97 05/20/21 04:45 69 30 H 98 05/20/21 04:30 96 30 H 97 05/20/21 04:15 70 30 H 98 05/20/21 04:00 36.5 F L 112 H 30 H 96 05/20/21 03:45 84 30 H 98 05/20/21 03:30 104 H 30 H 98 05/20/21 03:15 87 30 H 97 05/20/21 03:00 118 H 30 H 96 05/20/21 02:45 110 H 31 H 96 01/18/22 02:30 104 H 31 H 96 05/20/21 02:15 117 H 32 H 95 05/20/21 02:00 101 H 30 H 96 05/20/21 01:45 124 H 41 H 96 05/20/21 01:30 116 H 35 H 96 05/20/21 01:15 118 H 32 H 97 05/20/21 01:00 120 H 33 H 96 05/20/21 00:45 123 H 33 H 96 05/20/21 00:30 120 H 33 H 96 05/20/21 00:15 128 H 32 H 97 05/20/21 00:00 99.1 F 121 H 30 H 97 05/19/21 23:45 125 H 30 H 125/74 96 05/19/21 23:30 126 H 30 H 97 05/19/21 23:15 118 H 35 H 94 L 05/19/21 23:00 121 H 36 H 96 05/19/21 22:45 114 H 30 H 97 05/19/21 22:30 114 H 32 H 94 L 05/19/21 22:15 77 39 H 96 05/19/21 22:00 98 30 H 95 05/19/21 21:45 90 30 H 97 05/19/21 21:30 92 30 H 97 05/19/21 21:15 80 30 H 96 05/19/21 21:00 72 30 H 96 05/19/21 20:45 73 30 H 97 05/19/21 20:30 75 30 H 96 05/19/21 20:15 73 30 H 96 05/19/21 20:00 99.1 F 74 30 H 96 05/19/21 19:45 108 H 30 H 96 05/19/21 19:30 96 30 H 96 05/19/21 19:15 82 30 H 96 05/19/21 19:00 92 30 H 96 05/19/21 18:45 101 H 30 H 97 05/19/21 18:30 70 30 H 97 05/19/21 18:15 92 30 H 97 05/19/21 18:00 78 30 H 96 05/19/21 17:45 98 30 H 97 05/19/21 17:30 96 30 H 97 05/19/21 17:15 75 30 H 96 05/19/21 17:00 73 30 H 96 05/19/21 16:45 74 30 H 96 05/19/21 16:30 91 30 H 96 05/19/21 16:15 90 30 H 96 05/19/21 16:00 99.1 F 92 30 H 96 05/19/21 15:45 96 30 H 97 05/19/21 15:30 95 30 H 96 05/19/21 15:15 96 30 H 97 05/19/21 15:00 87 30 H 97 05/19/21 14:45 73 30 H 97 05/19/21 14:30 81 30 H 97 05/19/21 14:15 70 30 H 97 05/19/21 14:00 74 30 H 97 05/19/21 13:45 62 30 H 97 05/19/21 13:30 56 L 30 H 97 05/19/21 13:15 60 30 H 97 05/19/21 13:00 57 L 30 H 97 05/19/21 12:45 65 31 H 98 05/19/21 12:30 70 30 H 97 05/19/21 12:15 79 30 H 96 05/19/21 12:00 95.9 F L 84 30 H 96 05/19/21 11:45 63 30 H 97 05/19/21 11:30 67 30 H 97 05/19/21 11:15 71 30 H 96 05/19/21 11:00 93 30 H 97 05/19/21 10:45 96 96 05/19/21 10:30 89 104/72 99 Intake and Output 05/19/21 05/20/21 05/20/21 22:59 06:59 14:59 Intake Total 900 1740.592 283.975 Output Total 475 480 80 Balance 425 1260.592 203.975 Intake: IV 900 1100 100 D5W 800 800 Dextrose 10% in Water 500 100 ml In Empty Bag 1 bag @ 100 mls/hr IV .Q5H [facility] Rx #:[id number] Valproate Sodium 250 mg 200 In Sodium Chloride 0.9% 100 ml @ 100 mls/hr IVPB Q6HR@0300,0900,1500,2100 [facility] Rx#:[id number] zosyn 100 100 Intake, IV Titration 640.592 183.975 Amount Norepinephrine 4 mg In 466.492 114.750 Sodium Chloride 0.9% 250 ml @ 0.05 MCG/KG/MIN 11. 838 mls/hr IV .[id number] [facility] Rx#:[id number] propofoL 1,000 mg In 174.1 69.225 Empty Bag 1 bag @ Titrate IV .Q0M [facility] Rx#: [id number] Output: Urine 475 480 80 Other: Voiding Method Indwelling Catheter Indwelling Catheter Weight 65 kg 65 kg ABP, PAP, CO, CI - Last 8 Hours Arterial Blood Pressure 180/69 Arterial Blood Pressure 155/58 Arterial Blood Pressure 107/55 Arterial Blood Pressure 146/57 Arterial Blood Pressure 132/55 Arterial Blood Pressure 130/56 Arterial Blood Pressure 164/61 Arterial Blood Pressure 142/59 Arterial Blood Pressure 120/54 Arterial Blood Pressure 160/61 Arterial Blood Pressure 135/62 Arterial Blood Pressure 163/58 Arterial Blood Pressure 143/54 Arterial Blood Pressure 125/56 Arterial Blood Pressure 154/60 Arterial Blood Pressure 107/51 Arterial Blood Pressure 134/58 Arterial Blood Pressure 125/60 Arterial Blood Pressure 129/55 Arterial Blood Pressure 87/44 Arterial Blood Pressure 114/54 Arterial Blood Pressure 105/53 Results - Lab Results Most recent lab results ABG pH 7.18 (7.35-7.45) L* 05/20/21 05:10 ABG pCO2 70 mmHg (35-45) H 05/20/21 05:10 ABG pO2 95 mmHg (83-108) 05/20/21 05:10 ABG HCO3 26 mmol/L (21-25) H 05/20/21 05:10 ABG O2 Saturation 96.7 % (94-97) 05/20/21 05:10 Calcium 8.4 mg/dL (8.4-10.2) 05/20/21 03:00 Magnesium 2.1 mg/dL (1.6-2.3) 05/17/21 13:30 05/20/21 03:00 05/20/21 03:00 Assessment and Plan Plan: Assessment: 1. Acute kidney injury secondary to ATN secondary to septic shock. Creatinine 2.07 today. Nonoliguric. 2. Chronic any disease stage IIIa with baseline creatinine in the range of 1.2- 1.4 secondary to nephrosclerosis. 3. Hypernatremia from the cough oral water intake. 4. Septic shock secondary to COVID-19 pneumonia. Also concern for aspiration pneumonia. 5. Hyperkalemia secondary to acute kidney injury. Improved with medical management. 6. Hypoglycemia maintained on D10. Next Plan: Maintain D10 at 100 mL an hour. Repeat sodium level at 10 AM. 1 L normal saline bolus now. Wean FiO2 and vasopressors. Avoid nephrotoxins. Continue to monitor renal function and urine output. Thank you for the consultation. I will continue to follow the patient with you during his hospital stay.
[2021-05-20 10:33] LABS: Glucose,Whole Blood 103 mg/dL (75-99)
[2021-05-20 10:57] LABS: Calcium 7.8 mg/dL (8.4-10.2); Potassium 4.7 mmol/L (3.5-5.1)
--- NOTE | 2021-05-20 11:44 | P.PN ---
Subjective Progress Note Date: 05/20/21 Principal diagnosis: Acute COVID-19 pneumonia This is a 70-year-old male patient, brought into the emergency department by a caregiver. The patient is unable to volunteer any history. He has issues with dementia and mental health. In fact he is unable to communicate. He is currently in the hospital for COVID pneumonia. The patient initially went to [place] where he was seen in the [facility] for COVID 19 infection. He was discharged home. This is approximately 4 days ago. Following that, the caregiver sent the patient to our hospital as the patient's condition was getting worse and apparently continued to have worsening mentation. The patient was unable to communicate time of his admission. He was mumbling and unable to make full sentences or other words. He was restless in bed. At times agitated. At times screaming. He was quite uncooperative during the evaluation. No history of any head trauma. The patient apparently had a fall and he sustained a trauma to his neck area following the fall. This occurred at home in a bathtub. In the emergency department, the patient was found to be hypoxic with a pulse ox of 80% and the patient required oxygen. The patient is currently on oxygen at 10 L high flow. Initial CAT scan of the brain and the CAT scan of the C-spine showed no acute process. The patient was given 10 mg of Decadron in the emergency department regarding his COVID 19 pneumonia. Chest x-ray showed bilateral lower lobe airspace disease. Note that the pulmonary infiltrates were worse on the right compared to the leftand the infiltrate was rather asymmetric, which obviously raises concerns for an underlying pneumonia, aspiration and the patient was given a dose of Rocephin and Zithromax in the emergency department. His white cell count is at 6.4 with a hemoglobin of 12 and a platelet count of 130. Sodium was 155 this morning with a potassium level of 6.1, BUN is at 50 with a creatinine of 1.5, LFTs are normal, lactic acid level was at 1.9, pro calcitonin level is at 0.16, d-dimer is at 0.8 and the rest of the coagulation profile is within normal limits. The patient is currently on IV Decadron. On 05/19/2021 patient seen in follow-up in the intensive care unit, overnight his condition continued to deteriorate, and early this morning at 4:00 on 05/19/2021 patient had rapid response team called to the bedside for concern of worsening shortness of breath, and worsening hypoxia, patient was confused and in respiratory distress, he is not answering any questions, on 10 L of oxygen his pulse ox was 94%, however his mental status was significantly altered, patient was transferred to the intensive care unit for high likelihood of intubation, this morning she was intubated and placed on mechanical ventilator, with assist-control mode of ventilation with a rate of 30, tidal on was 300, FiO2 100% and PEEP of 5. Early in the morning his blood gases showed pO2 of 82, pCO2 of 80, and pH of 7.18, this was done and FiO2 of 70%. Post intubation blood gas showed a pO2 of 81, pCO2 of 63, and pH of 7.24, this was done and FiO2 of 50%. Patient was hypotensive following intubation, he was given 2 L of fluid boluses, and his maintenance IV fluid is D5W at 50 ML per hour which will be switched to normal saline, he is on norepinephrine at 0.14 mics per kilo per minute, Diprivan infusion at 50 mics per kilo per minute. He remains on prophylactic Lovenox 40 mg daily, and Decadron 6 mg daily. He remains on his home medications including Lipitor, Plavix, Depakote, iron supplementation, his antipsychotics, midodrine which patient have not been able to take related to his altered mental status. Patient was also suspected to be aspirating, and he was placed on Zosyn for empiric antibiotic coverage. Today's labs have been reviewed, his white blood cell count is 7.1, hemoglobin of 12.7, sodium is 153 and patient has been on D5W at a rate of 100 ML per hour, his oral intake has been extremely poor, potassium is 5.8, chloride is 124, BUN of 69, creatinine is 1.97. Patient's extremely cachectic, and frail. This morning patient had to be intubated and placed on mechanical ventilator, we will initiate tube feedings today, consult registered dietitian for tube feeding recommendation, patient will be fluid bolused, and stabilized hemodynamically. On 05/20/2021 patient seen in follow-up in intensive care unit. Yesterday he was intubated and placed on mechanical ventilator in view of worsening hypoxia and dyspnea. Today he remains sedated, and intubated on assist control mode of ventilation with a rate of 30, tidal volume is 325, FiO2 of 50% and PEEP of 10, this morning blood gases shows pO2 of 95, pCO2 of 70, and pH of 7.18. This was done on the above mentioned ventilator settings, today's chest x-ray shows some improvement of bibasilar infiltrates more so on the right, and possibility of developing small right pleural effusion. Patient is currently on a vasopressor support in the form of norepinephrine is 0.38 mics per kilo per minute which is about 24.7 mics per minute, he is on Diprivan at 50 mics per kilo per minute, and overnight he had episode of hypoglycemia and patient was placed on 10% dextrose at a rate of 100 ML per hour, patient was extremely dehydrated prior to his intubation, his had very poor oral intake. He was given 2 L fluid bolus yesterday, however still requiring vasopressor support, and case was discussed with nephrology who agreed that patient is still extremely intravascular volume depleted, and is recommending another 1 or 2 L fluid bolus today. Today's labs have been reviewed and his white blood cell count is 14.6, hemoglobin is 12.1, platelet count is 223, sodium is 148, potassium is 4.7, chloride is 121, CO2 is 23, BUN of 49 creatinine is 1.93, his LDH is 560, within normal limits, and CRP is 7.2, improving, his last proBNP from a couple days ago was 5790 however patient seems to be extremely dehydrated. His pro calcitonin levels were negative 2 at 0.16, and 0.12 however his chest x-ray findings suggest possibility of aspiration pneumonia, and patient was placed on Zosyn for possibility of aspiration. Sputum culture has been sent and pending, preliminary Gram stain showing few PMNs, rare budding yeast, final culture is pending, blood cultures are negative thus far. Objective - Vital Signs Vital signs: Vital Signs Temp 36.5 F L 05/20/21 04:00 Pulse 63 05/20/21 07:45 Resp 29 H 05/20/21 07:45 BP 125/74 05/19/21 23:45 Pulse Ox 98 05/20/21 07:45 Intake & Output 05/19/21 05/20/21 05/20/21 18:59 06:59 18:59 Intake Total 3050 2140.592 283.975 Output Total 640 775 80 Balance 2410 1365.592 203.975 Weight 62.142 kg 65 kg 65 kg Intake: IV 3050 1500 100 0.9 NACL bolus 2000 D5W 850 1200 Dextrose 10% in Water 500 100 ml In Empty Bag 1 bag @ 100 mls/hr IV .Q5H [facility] Rx #:[id number] Valproate Sodium 250 mg 200 In Sodium Chloride 0.9% 100 ml @ 100 mls/hr IVPB Q6HR@0300,0900,1500,2100 [facility] Rx#:[id number] zosyn 200 100 Intake, IV Titration 640.592 183.975 Amount Norepinephrine 4 mg In 466.492 114.750 Sodium Chloride 0.9% 250 ml @ 0.05 MCG/KG/MIN 11. 838 mls/hr IV .[id number] [facility] Rx#:[id number] propofoL 1,000 mg In 174.1 69.225 Empty Bag 1 bag @ Titrate IV .Q0M [facility] Rx#: [id number] Output: Urine 640 775 80 Other: Voiding Method Indwelling Catheter Indwelling Catheter ABP, PAP, CO, CI - Last Documented Arterial Blood Pressure 180/69 - Exam GENERAL EXAM: Extremely frail and cachectic 70-year-old white male, intubated, and sedated on assist control mode of ventilation with a rate of 30, tidal on his 325, FiO2 50% and PEEP of 10, comfortable in no apparent distress. HEAD: Normocephalic/atraumatic. EYES: Normal reaction of pupils, equal size. Conjunctiva pink, sclera white. NOSE: Clear with pink turbinates. THROAT: No erythema or exudates. NECK: No masses, no JVD, no thyroid enlargement, no adenopathy. CHEST: No chest wall deformity. Symmetrical expansion. LUNGS: Equal air entry with diminished breath sounds and crackles CVS: Regular rate and rhythm, normal S1 and S2, no gallops, no murmurs, no rubs ABDOMEN: Soft, nontender. No hepatosplenomegaly, normal bowel sounds, no guarding or rigidity. EXTREMITIES: No clubbing, no edema, no cyanosis, 2+ pulses and upper and lower extremities. MUSCULOSKELETAL: Muscle strength and tone normal. SPINE: No scoliosis or deformity SKIN: No rashes CENTRAL NERVOUS SYSTEM: Sedated, intubated No focal deficits, tone is normal in all 4 extremities. - Labs CBC & Chem 7: 05/20/21 03:00 05/20/21 10:20 Labs: Abnormal Lab Results - Last 24 Hours (Table) 05/19/21 05/19/21 05/19/21 Range/Units 05:32 11:18 11:36 WBC (3.8-10.6) k/uL RBC (4.30-5.90) m/uL Hgb (13.0-17.5) gm/dL MCV (80.0-100.0) fL MCHC (31.0-37.0) g/dL Plt Count Comment DECREASED A Metamyelocytes % 1 H (0-0) % Neutrophils # (Manual) (1.3-7.7) k/uL Lymphocytes # (Manual) 0.50 L (0.90-5.00) X 10*3/uL Monocytes # (Manual) 0.17 L (0.20-1.00) X 10*3/uL Eosinophils # (Manual) 0 L (0.04-0.35) X 10*3/uL Metamyelocytes # (Man) (0) k/uL ABG pH 7.24 L (7.35-7.45) ABG pCO2 63 H (35-45) mmHg ABG pO2 81 L (83-108) mmHg ABG HCO3 27 H (21-25) mmol/L ABG Total CO2 29 H (19-24) mmol/L Sodium (137-145) mmol/L Chloride (98-107) mmol/L BUN (9-20) mg/dL Creatinine (0.66-1.25) mg/dL Glucose (74-99) mg/dL POC Glucose (mg/dL) 149 H (75-99) mg/dL Calcium (8.4-10.2) mg/dL C-Reactive Protein (<1.0) mg/dL Total Protein (6.3-8.2) g/dL Albumin (3.5-5.0) g/dL Procalcitonin (0.02-0.09) ng/mL 05/19/21 05/20/21 05/20/21 Range/Units 18:56 03:00 03:00 WBC 14.6 H (3.8-10.6) k/uL RBC 3.90 L (4.30-5.90) m/uL Hgb 12.1 L (13.0-17.5) gm/dL MCV 101.1 H (80.0-100.0) fL MCHC 30.7 L (31.0-37.0) g/dL Plt Count Comment Metamyelocytes % (0-0) % Neutrophils # (Manual) 12.90 H (1.3-7.7) k/uL Lymphocytes # (Manual) 0.88 L (0.90-5.00) X 10*3/uL Monocytes # (Manual) (0.20-1.00) X 10*3/uL Eosinophils # (Manual) (0.04-0.35) X 10*3/uL Metamyelocytes # (Man) 0.44 H (0) k/uL ABG pH (7.35-7.45) ABG pCO2 (35-45) mmHg ABG pO2 (83-108) mmHg ABG HCO3 (21-25) mmol/L ABG Total CO2 (19-24) mmol/L Sodium 153 H (137-145) mmol/L Chloride 121 H (98-107) mmol/L BUN 55 H (9-20) mg/dL Creatinine 2.07 H (0.66-1.25) mg/dL Glucose <20 L* (74-99) mg/dL POC Glucose (mg/dL) (75-99) mg/dL Calcium (8.4-10.2) mg/dL C-Reactive Protein 7.2 H (<1.0) mg/dL Total Protein 6.0 L (6.3-8.2) g/dL Albumin 2.8 L (3.5-5.0) g/dL Procalcitonin 0.12 H (0.02-0.09) ng/mL 05/20/21 05/20/21 05/20/21 Range/Units 04:01 05:10 05:21 WBC (3.8-10.6) k/uL RBC (4.30-5.90) m/uL Hgb (13.0-17.5) gm/dL MCV (80.0-100.0) fL MCHC (31.0-37.0) g/dL Plt Count Comment Metamyelocytes % (0-0) % Neutrophils # (Manual) (1.3-7.7) k/uL Lymphocytes # (Manual) (0.90-5.00) X 10*3/uL Monocytes # (Manual) (0.20-1.00) X 10*3/uL Eosinophils # (Manual) (0.04-0.35) X 10*3/uL Metamyelocytes # (Man) (0) k/uL ABG pH 7.18 L* (7.35-7.45) ABG pCO2 70 H (35-45) mmHg ABG pO2 (83-108) mmHg ABG HCO3 26 H (21-25) mmol/L ABG Total CO2 29 H (19-24) mmol/L Sodium (137-145) mmol/L Chloride (98-107) mmol/L BUN (9-20) mg/dL Creatinine (0.66-1.25) mg/dL Glucose (74-99) mg/dL POC Glucose (mg/dL) 208 H 47 L (75-99) mg/dL Calcium (8.4-10.2) mg/dL C-Reactive Protein (<1.0) mg/dL Total Protein (6.3-8.2) g/dL Albumin (3.5-5.0) g/dL Procalcitonin (0.02-0.09) ng/mL 05/20/21 05/20/21 05/20/21 Range/Units 05:22 06:47 10:20 WBC (3.8-10.6) k/uL RBC (4.30-5.90) m/uL Hgb (13.0-17.5) gm/dL MCV (80.0-100.0) fL MCHC (31.0-37.0) g/dL Plt Count Comment Metamyelocytes % (0-0) % Neutrophils # (Manual) (1.3-7.7) k/uL Lymphocytes # (Manual) (0.90-5.00) X 10*3/uL Monocytes # (Manual) (0.20-1.00) X 10*3/uL Eosinophils # (Manual) (0.04-0.35) X 10*3/uL Metamyelocytes # (Man) (0) k/uL ABG pH (7.35-7.45) ABG pCO2 (35-45) mmHg ABG pO2 (83-108) mmHg ABG HCO3 (21-25) mmol/L ABG Total CO2 (19-24) mmol/L Sodium 148 H (137-145) mmol/L Chloride 121 H (98-107) mmol/L BUN 49 H (9-20) mg/dL Creatinine 1.93 H (0.66-1.25) mg/dL Glucose 113 H (74-99) mg/dL POC Glucose (mg/dL) 44 L 64 L (75-99) mg/dL Calcium 7.8 L (8.4-10.2) mg/dL C-Reactive Protein (<1.0) mg/dL Total Protein (6.3-8.2) g/dL Albumin (3.5-5.0) g/dL Procalcitonin (0.02-0.09) ng/mL 05/20/21 Range/Units 10:30 WBC (3.8-10.6) k/uL RBC (4.30-5.90) m/uL Hgb (13.0-17.5) gm/dL MCV (80.0-100.0) fL MCHC (31.0-37.0) g/dL Plt Count Comment Metamyelocytes % (0-0) % Neutrophils # (Manual) (1.3-7.7) k/uL Lymphocytes # (Manual) (0.90-5.00) X 10*3/uL Monocytes # (Manual) (0.20-1.00) X 10*3/uL Eosinophils # (Manual) (0.04-0.35) X 10*3/uL Metamyelocytes # (Man) (0) k/uL ABG pH (7.35-7.45) ABG pCO2 (35-45) mmHg ABG pO2 (83-108) mmHg ABG HCO3 (21-25) mmol/L ABG Total CO2 (19-24) mmol/L Sodium (137-145) mmol/L Chloride (98-107) mmol/L BUN (9-20) mg/dL Creatinine (0.66-1.25) mg/dL Glucose (74-99) mg/dL POC Glucose (mg/dL) 103 H (75-99) mg/dL Calcium (8.4-10.2) mg/dL C-Reactive Protein (<1.0) mg/dL Total Protein (6.3-8.2) g/dL Albumin (3.5-5.0) g/dL Procalcitonin (0.02-0.09) ng/mL Microbiology - Last 24 Hours (Table) 05/19/21 Unknown Gram Stain - Preliminary Sputum Sputum Culture - Preliminary 05/17/21 22:00 Blood Culture - Preliminary Blood No Growth after 48 hours Assessment and Plan Plan: Assessment: #1. Acute hypoxic respiratory failure related to acute COVID-19 pneumonia, and possibility of bacterial infection/aspiration related pneumonia is not entirely excluded. Patient was brought into the emergency department on 05/17/2021 per EMS, patient is a poor historian, reportedly has history of bipolar disease and dementia. Came in primarily for evaluation of altered mental status. Transferred from [place] emergency department for COVID-19 related pneumonia. The patient was taken to the hospital in [place] 4 days prior to this admission and the symptom onset was probably even prior to that. Exact onset of symptoms is not known. Patient was transferred to the intensive care unit on 05/19/2021 for worsening hypoxia, and hypercapnia, and altered mental status, and was intubated on 05/19/2021 on assist control mode of ventilation with a rate of 30, tidal on his 300, FiO2 50% and PEEP of 10. #2. Acute hypercapnic respiratory failure, related to acute aspiration, and possible COVID-19 pneumonia, intubated #3. Hypotension, related to dehydration, and possibility of septic shock is not excluded. Patient remains on norepinephrine at 24.7 mics per min #4. Altered mental status with worsening from baseline #5. History of dementia and schizoaffective disorder #6. Acute dehydration and hypernatremia, on the D5W at 100 ML per hour, improving #7. Chronic stage 3 kidney disease #8. COPD #9. History of coronary artery disease #10. GERD/reflux #11. Hyperlipidemia #12. Acute kidney injury related to ATN, and dehydration, patient continues on IV hydration and continues to receive fluid boluses #13. Hyperkalemia related to [place], resolved #14. Hypoglcemia, was placed on D10 at 100 ml, will start tube feeds today. 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 I reviewed the nurse violeta marrero's note and agree with the documented findings and plan of care. Lung sounds are positive for diminished breath sounds throughout the lung watson. The findings and the impression was discussed with the patient. I attest to the documentation by the nurse practitioner. Time with Patient: Greater than 30
[2021-05-20 13:48] LABS: ABG Base Excess -1.7 mmol/L; ABG HCO3 24 mmol/L (21-25); ABG Oxygen Saturation 99.9 % (94-97); ABG PCO2 43 mmHg (35-45); ABG PH 7.36 (7.35-7.45); ABG PO2 157 mmHg (83-108); ABG TCO2 25 mmol/L (19-24)
[2021-05-20 13:49] LABS: Allen Test Performed? no
--- NOTE | 2021-05-20 14:48 | P.PN ---
Subjective Progress Note Date: 05/20/21 This is a 70-year-old male who was recently admitted with change in mental status and fall and also shortness of breath and acute COVID-19 pneumonia and being closely monitored. Patient was continued on high flow oxygen although respiratory status continued to deteriorate and an A team was called. Patient was brought to the ICU for close monitoring and x-ray showed some bilateral lower lobe pneumonia which appears unchanged compared to recent exam with no obvious heart failure. Patient was placed on mechanical vent and intubated and sedated and is being closely monitored. Multiple medical consultations including pulmonary and infectious disease following closely. 05/20/2021 Patient is seen in follow-up activity is to be closely monitored in the ICU. Blood pressure and heart rate has been extremely variable and patient is maintained on D10 in water along with norepinephrine and will continue. Pulmonary and infectious disease following closely. Patient continues with worsening kidney functions nephrology consulted and patient is being given a liter bolus for hypotension and repeat sodium level ordered. Patient also continues on Zosyn and ID following closely. Patient continues with low blood sugar readings as well and we'll continue D10 and close glucose monitoring. Chest x-ray shows some improvement in bibasilar infiltrates more so on the right and possibly developing small right pleural effusion. Review of systems: Unable to obtain as patient is mechanically intubated and sedated Labs: WBC is 14.6, hemoglobin is 12.1, platelets are 223, sodium is 148, potassium 4.7, BUN 49, creatinine 1.93, calcium 7.8, CRP is 7.2, pro calcitonin was 0.12 Active Medications Acetaminophen (Acetaminophen Tab 325 Mg Tab) 650 mg PO Q6HR PRN PRN Reason: Mild Pain or Fever > 100.5 Last Admin: 05/18/21 23:16 Dose: 650 mg Documented by: Albuterol Sulfate (Albuterol Hfa Inhaler) 2 puff INHALATION RT-QID [facility] Last Admin: 05/20/21 11:18 Dose: 2 puff Documented by: Atorvastatin Calcium (Atorvastatin 20 Mg Tab) 20 mg PO HS [facility] Last Admin: 05/19/21 22:12 Dose: 20 mg Documented by: Clopidogrel Bisulfate (Clopidogrel 75 Mg Tab) 75 mg PO DAILY [facility] Last Admin: 05/20/21 09:16 Dose: 75 mg Documented by: Dexamethasone Sodium Phosphate (Dexamethasone Sod Phosphate 10 Mg/Ml 1 Ml Vial) 6 mg IVP DAILY [facility] Last Admin: 05/20/21 09:16 Dose: 6 mg Documented by: Divalproex Sodium (Divalproex Er 500 Mg Tab.Er.24h) 500 mg PO BID [facility] Last Admin: 05/19/21 09:52 Dose: Not Given Documented by: Enoxaparin Sodium (Enoxaparin 30 Mg/0.3 Ml Syringe) 30 mg SQ DAILY [facility] Last Admin: 05/20/21 09:16 Dose: 30 mg Documented by: Ferrous Sulfate (Ferrous Sulfate 325 Mg Tab) 325 mg PO DAILY [facility] Last Admin: 05/20/21 09:08 Dose: Not Given Documented by: Folic Acid (Folic Acid 1 Mg Tab) 1 mg PO DAILY [facility] Last Admin: 05/20/21 09:16 Dose: 1 mg Documented by: Piperacillin Sod/Tazobactam (Sod 3.375 gm/ Sodium Chloride) 100 mls @ 25 mls/hr IVPB Q8HR [facility] Last Admin: 05/20/21 09:15 Dose: 25 mls/hr Documented by: Norepinephrine Bitartrate 4 mg (/ Sodium Chloride) 254 mls @ 11.838 mls/hr IV .[id number] [facility]; Protocol Last Admin: 05/20/21 11:43 Dose: 0.15 mcg/kg/min, 35.514 mls/hr Documented by: Propofol 1,000 mg/ IV Solution 100 mls @ 0 mls/hr IV .Q0M [facility]; Protocol Last Admin: 05/20/21 14:02 Dose: 50 mcg/kg/min, 19.5 mls/hr Documented by: Valproic Acid 250 mg/ Sodium (Chloride) 102.5 mls @ 100 mls/hr IVPB Q6HR@0300,0900,1500,2100 [facility] Last Admin: 05/20/21 09:34 Dose: 100 mls/hr Documented by: Dextrose/Water 500 ml/ IV (Solution) 500 mls @ 70 mls/hr IV .Q7H9M [facility] Last Admin: 05/20/21 11:43 Dose: 70 mls/hr Documented by: Physical Exam: Gen: this is a 70-year-old male currently sedated and intubated. Temp is 97.4F, pulse is 89, respirations are 30, arterial blood pressure is 131/56, blood pressure is 125/74, oxygen saturation is 98% on 50% mechanical ventilation with a PEEP of 10 HEENT: Head is atraumatic, normocephalic. Pupils equal, round. Sclerae is anicteric. NECK: Supple. No JVD. No lymphadenopathy. No thyromegaly. LUNGS: Diminished breath sounds bilaterally with coarse rhonchi and crackles noted. No intercostal retractions. HEART: S1, S2 are muffled ABDOMEN: Soft. Bowel sounds are present. No masses. No tenderness. EXTREMITIES: No pedal edema. No calf tenderness. NEUROLOGICAL: Patient is currently intubated and sedated Assessment: Acute COVID-19 infection with acute COVID-19 bilateral interstitial pneumonia, right more than left with acute hypoxic respiratory failure, now requiring mechanical ventilation Acute kidney injury secondary to acute tubular necrosis from septic shock Chronic kidney disease stage III a secondary to nephrosclerosis Hypoglycemia Change in mental status, metabolic encephalopathy, multifactorial Falling gait dysfunction Anemia, normocytic anemia of undetermined significance Hypernatremia from poor oral intake Hyperkalemia secondary to acute kidney injury Elevated d-dimer acute renal failure with dehydration history of coronary artery disease history of chronic obstructive pulmonary disease Gastroesophageal reflux disease history of bipolar, schizoaffective disorder and schizophrenia History of nicotine dependence Severe protein calorie malnutrition with a BMI of 19.1 Full code Plan: Recommend to continue with current medications and follow along closely with multiple medical consultations. Prognosis remains guarded with multiple complex medical issues noted. Patient continued to have respiratory distress and sent to the ICU for close monitoring and was placed on mechanical ventilation and is currently intubated and sedated. Patient continues on mechanical ventilation with an FiO2 of 50% and PEEP is 10. Recommend continue with current medications and patient has been maintained on IV antibiotics with infectious disease fo llowing.. Chest x-ray reviewed as mentioned above. Recommend repeat labs in the morning. Nephrology following and patient is maintained on D10 and water and showing some mild improvement in sodium although blood sugars have been low and recommend continue with close monitoring of Accu-Cheks and may use dextrose amp for hypoglycemia. Again due to multiple complex medical issues prognosis is quite guarded. Objective - Vital Signs Vital signs: Vital Signs Temp 36.5 F L 05/20/21 04:00 Pulse 63 05/20/21 07:45 Resp 29 H 05/20/21 07:45 BP 125/74 05/19/21 23:45 Pulse Ox 98 05/20/21 07:45 Intake & Output 05/19/21 05/20/21 05/20/21 18:59 06:59 18:59 Intake Total 3050 2140.592 100 Output Total 640 775 80 Balance 2410 1365.592 20 Weight 62.142 kg 65 kg Intake: IV 3050 1500 100 0.9 NACL bolus 2000 D5W 850 1200 Dextrose 10% in Water 500 100 ml In Empty Bag 1 bag @ 100 mls/hr IV .Q5H [facility] Rx #:[id number] Valproate Sodium 250 mg 200 In Sodium Chloride 0.9% 100 ml @ 100 mls/hr IVPB Q6HR@0300,0900,1500,2100 [facility] Rx#:[id number] zosyn 200 100 Intake, IV Titration 640.592 Amount Norepinephrine 4 mg In 466.492 Sodium Chloride 0.9% 250 ml @ 0.05 MCG/KG/MIN 11. 838 mls/hr IV .[id number] [facility] Rx#:[id number] propofoL 1,000 mg In 174.1 Empty Bag 1 bag @ Titrate IV .Q0M [facility] Rx#: [id number] Output: Urine 640 775 80 Other: Voiding Method Indwelling Catheter Indwelling Catheter ABP, PAP, CO, CI - Last Documented Arterial Blood Pressure 180/69 - Labs CBC & Chem 7: 05/20/21 03:00 05/20/21 10:20 Labs: Abnormal Lab Results - Last 24 Hours (Table) 05/19/21 05/19/21 05/19/21 Range/Units 05:32 05:32 09:03 WBC (3.8-10.6) k/uL RBC 3.89 L 3.90 L (4.40-5.60) X 10*6/uL Hgb 12.1 L 12.7 L D (13.0-17.0) g/dL MCV 104.6 H 103.4 H (80.0-97.0) fL MCHC 29.7 L (32.0-37.0) g/dL RDW 15.5 H (11.5-14.5) % Plt Count 120 L (140-440) X 10*3/uL Plt Count Comment DECREASED A Metamyelocytes % 1 H (0-0) % Neutrophils # (Manual) (1.3-7.7) k/uL Lymphocytes # (Manual) 0.50 L (0.90-5.00) X 10*3/uL Monocytes # (Manual) 0.17 L (0.20-1.00) X 10*3/uL Eosinophils # (Manual) 0 L (0.04-0.35) X 10*3/uL Metamyelocytes # (Man) (0) k/uL ABG pH (7.35-7.45) ABG pCO2 (35-45) mmHg ABG pO2 (83-108) mmHg ABG HCO3 (21-25) mmol/L ABG Total CO2 (19-24) mmol/L Sodium 157 H (135-145) mmol/L Potassium 5.6 H (3.5-5.5) mmol/L Chloride 121 H (96-109) mmol/L BUN 63.1 H (9.0-27.0) mg/dL Creatinine 1.9 H (0.6-1.5) mg/dL Est GFR (CKD-EPI)AfAm 39.9 L (60.0-200.0) Est GFR (CKD-EPI)NonAf 34.5 L (60.0-200.0) BUN/Creatinine Ratio 33.21 H (12.00-20.00) Ratio Glucose (74-99) mg/dL POC Glucose (mg/dL) (75-99) mg/dL AST 39 H (14-35) U/L C-Reactive Protein (<1.0) mg/dL Total Protein 6.0 L (6.2-8.2) g/dL Albumin 3.1 L (3.8-4.9) g/dL Albumin/Globulin Ratio 1.07 L (1.60-3.17) g/dL Procalcitonin (0.02-0.09) ng/mL 05/19/21 05/19/21 05/19/21 Range/Units 09:03 11:18 11:36 WBC (3.8-10.6) k/uL RBC (4.40-5.60) X 10*6/uL Hgb (13.0-17.0) g/dL MCV (80.0-97.0) fL MCHC (32.0-37.0) g/dL RDW (11.5-14.5) % Plt Count (140-440) X 10*3/uL Plt Count Comment Metamyelocytes % (0-0) % Neutrophils # (Manual) (1.3-7.7) k/uL Lymphocytes # (Manual) (0.90-5.00) X 10*3/uL Monocytes # (Manual) (0.20-1.00) X 10*3/uL Eosinophils # (Manual) (0.04-0.35) X 10*3/uL Metamyelocytes # (Man) (0) k/uL ABG pH 7.24 L (7.35-7.45) ABG pCO2 63 H (35-45) mmHg ABG pO2 81 L (83-108) mmHg ABG HCO3 27 H (21-25) mmol/L ABG Total CO2 29 H (19-24) mmol/L Sodium 153 H (135-145) mmol/L Potassium 5.8 H (3.5-5.5) mmol/L Chloride 124 H (96-109) mmol/L BUN 69 H (9.0-27.0) mg/dL Creatinine 1.97 H (0.6-1.5) mg/dL Est GFR (CKD-EPI)AfAm (60.0-200.0) Est GFR (CKD-EPI)NonAf (60.0-200.0) BUN/Creatinine Ratio (12.00-20.00) Ratio Glucose 144 H (74-99) mg/dL POC Glucose (mg/dL) 149 H (75-99) mg/dL AST (14-35) U/L C-Reactive Protein (<1.0) mg/dL Total Protein (6.2-8.2) g/dL Albumin (3.8-4.9) g/dL Albumin/Globulin Ratio (1.60-3.17) g/dL Procalcitonin (0.02-0.09) ng/mL 05/19/21 05/20/21 05/20/21 Range/Units 18:56 03:00 03:00 WBC 14.6 H (3.8-10.6) k/uL RBC 3.90 L (4.40-5.60) X 10*6/uL Hgb 12.1 L (13.0-17.0) g/dL MCV 101.1 H (80.0-97.0) fL MCHC 30.7 L (32.0-37.0) g/dL RDW (11.5-14.5) % Plt Count (140-440) X 10*3/uL Plt Count Comment Metamyelocytes % (0-0) % Neutrophils # (Manual) 12.90 H (1.3-7.7) k/uL Lymphocytes # (Manual) 0.88 L (0.90-5.00) X 10*3/uL Monocytes # (Manual) (0.20-1.00) X 10*3/uL Eosinophils # (Manual) (0.04-0.35) X 10*3/uL Metamyelocytes # (Man) 0.44 H (0) k/uL ABG pH (7.35-7.45) ABG pCO2 (35-45) mmHg ABG pO2 (83-108) mmHg ABG HCO3 (21-25) mmol/L ABG Total CO2 (19-24) mmol/L Sodium 153 H (135-145) mmol/L Potassium (3.5-5.5) mmol/L Chloride 121 H (96-109) mmol/L BUN 55 H (9.0-27.0) mg/dL Creatinine 2.07 H (0.6-1.5) mg/dL Est GFR (CKD-EPI)AfAm (60.0-200.0) Est GFR (CKD-EPI)NonAf (60.0-200.0) BUN/Creatinine Ratio (12.00-20.00) Ratio Glucose <20 L* (74-99) mg/dL POC Glucose (mg/dL) (75-99) mg/dL AST (14-35) U/L C-Reactive Protein 7.2 H (<1.0) mg/dL Total Protein 6.0 L (6.2-8.2) g/dL Albumin 2.8 L (3.8-4.9) g/dL Albumin/Globulin Ratio (1.60-3.17) g/dL Procalcitonin 0.12 H (0.02-0.09) ng/mL 05/20/21 05/20/21 05/20/21 Range/Units 04:01 05:10 05:21 WBC (3.8-10.6) k/uL RBC (4.40-5.60) X 10*6/uL Hgb (13.0-17.0) g/dL MCV (80.0-97.0) fL MCHC (32.0-37.0) g/dL RDW (11.5-14.5) % Plt Count (140-440) X 10*3/uL Plt Count Comment Metamyelocytes % (0-0) % Neutrophils # (Manual) (1.3-7.7) k/uL Lymphocytes # (Manual) (0.90-5.00) X 10*3/uL Monocytes # (Manual) (0.20-1.00) X 10*3/uL Eosinophils # (Manual) (0.04-0.35) X 10*3/uL Metamyelocytes # (Man) (0) k/uL ABG pH 7.18 L* (7.35-7.45) ABG pCO2 70 H (35-45) mmHg ABG pO2 (83-108) mmHg ABG HCO3 26 H (21-25) mmol/L ABG Total CO2 29 H (19-24) mmol/L Sodium (135-145) mmol/L Potassium (3.5-5.5) mmol/L Chloride (96-109) mmol/L BUN (9.0-27.0) mg/dL Creatinine (0.6-1.5) mg/dL Est GFR (CKD-EPI)AfAm (60.0-200.0) Est GFR (CKD-EPI)NonAf (60.0-200.0) BUN/Creatinine Ratio (12.00-20.00) Ratio Glucose (74-99) mg/dL POC Glucose (mg/dL) 208 H 47 L (75-99) mg/dL AST (14-35) U/L C-Reactive Protein (<1.0) mg/dL Total Protein (6.2-8.2) g/dL Albumin (3.8-4.9) g/dL Albumin/Globulin Ratio (1.60-3.17) g/dL Procalcitonin (0.02-0.09) ng/mL 05/20/21 05/20/21 Range/Units 05:22 06:47 WBC (3.8-10.6) k/uL RBC (4.40-5.60) X 10*6/uL Hgb (13.0-17.0) g/dL MCV (80.0-97.0) fL MCHC (32.0-37.0) g/dL RDW (11.5-14.5) % Plt Count (140-440) X 10*3/uL Plt Count Comment Metamyelocytes % (0-0) % Neutrophils # (Manual) (1.3-7.7) k/uL Lymphocytes # (Manual) (0.90-5.00) X 10*3/uL Monocytes # (Manual) (0.20-1.00) X 10*3/uL Eosinophils # (Manual) (0.04-0.35) X 10*3/uL Metamyelocytes # (Man) (0) k/uL ABG pH (7.35-7.45) ABG pCO2 (35-45) mmHg ABG pO2 (83-108) mmHg ABG HCO3 (21-25) mmol/L ABG Total CO2 (19-24) mmol/L Sodium (135-145) mmol/L Potassium (3.5-5.5) mmol/L Chloride (96-109) mmol/L BUN (9.0-27.0) mg/dL Creatinine (0.6-1.5) mg/dL Est GFR (CKD-EPI)AfAm (60.0-200.0) Est GFR (CKD-EPI)NonAf (60.0-200.0) BUN/Creatinine Ratio (12.00-20.00) Ratio Glucose (74-99) mg/dL POC Glucose (mg/dL) 44 L 64 L (75-99) mg/dL AST (14-35) U/L C-Reactive Protein (<1.0) mg/dL Total Protein (6.2-8.2) g/dL Albumin (3.8-4.9) g/dL Albumin/Globulin Ratio (1.60-3.17) g/dL Procalcitonin (0.02-0.09) ng/mL Microbiology - Last 24 Hours (Table) 05/17/21 22:00 Blood Culture - Preliminary Blood No Growth after 48 hours 05/19/21 Unknown Sputum Culture - Preliminary Sputum
[2021-05-20 16:21] LABS: Glucose,Whole Blood 169 mg/dL (75-99)
[2021-05-20 17:44] LABS: Potassium 4.6 mmol/L (3.5-5.1)
[2021-05-20] MEDS: ATORVASTATIN 20 MG TAB PO SCH (20:10)
[2021-05-20] MEDS: CHLORHEXIDINE GLUCONATE 15 ML CUP MUCOUS MEM SCH (22:33)
--- NOTE | 2021-05-20 23:04 | P.PN ---
Subjective Progress Note Date: 05/19/21 Principal diagnosis: COVID-19 pneumonia Interval history: Patient is a 70-year-old male presented to the hospital with acute respiratory failure in this but have a evidence of multifocal pneumonia secondary to COVID-19. On today's evaluation that is 05/19/2021 patient did have worsening of his respiratory status requiring transfer to the ICU and was intubated this morning, no significant purulent secretion through the ET reported by the nursing staff no vomiting or any diarrhea has been reported Objective - Vital Signs Vital signs: Vital Signs Temp 95.9 F L 05/19/21 12:00 Pulse 87 05/19/21 15:00 Resp 30 H 05/19/21 15:00 BP 104/72 05/19/21 10:30 Pulse Ox 97 05/19/21 15:00 Intake & Output 05/18/21 05/19/21 05/19/21 18:59 06:59 18:59 Intake Total 1.554 2650 Output Total 200 500 Balance -200 1.554 2150 Weight 62.142 kg Intake: IV 2650 0.9 NACL bolus 2000 D5W 550 zosyn 100 Intake, IV Titration 1.554 Amount Dexmedetomidine/0.9% NaCl 1.554 (Pmx) 400 mcg In Empty Bag 1 bag @ 0.2 MCG/KG/HR 3.107 mls/hr IV .Q24H [facility] Rx#:[id number] Output: Urine 200 500 Other: Voiding Method Indwelling Catheter # Voids 2 ABP, PAP, CO, CI - Last Documented Arterial Blood Pressure 112/56 - Exam General description is an elderly male intubated on the vent Respiratory system:Unlabored breathing, decreased intensity in breath sounds. No wheeze. Heart S1, S2. Regular rate and rhythm. Abdomen soft, no tenderness. Extremities: No edema feet - Labs CBC & Chem 7: 05/20/21 03:00 05/20/21 16:18 Labs: Abnormal Lab Results - Last 24 Hours (Table) 05/18/21 05/18/21 05/19/21 Range/Units 18:38 20:40 04:35 RBC (4.40-5.60) X 10*6/uL Hgb (13.0-17.0) g/dL MCV (80.0-97.0) fL MCHC (32.0-37.0) g/dL RDW (11.5-14.5) % Plt Count (140-440) X 10*3/uL Plt Count Comment Metamyelocytes % (0-0) % Lymphocytes # (Manual) (0.90-5.00) X 10*3/uL Monocytes # (Manual) (0.20-1.00) X 10*3/uL Eosinophils # (Manual) (0.04-0.35) X 10*3/uL ABG pH 7.18 L* (7.35-7.45) ABG pCO2 80 H* (35-45) mmHg ABG pO2 82 L (83-108) mmHg ABG HCO3 30 H (21-25) mmol/L ABG Total CO2 32 H (19-24) mmol/L ABG O2 Saturation 93.4 L (94-97) % Sodium 155 H (137-145) mmol/L Potassium 5.4 H (3.5-5.1) mmol/L Chloride 121 H (98-107) mmol/L BUN 66 H (9-20) mg/dL Creatinine 1.64 H (0.66-1.25) mg/dL Est GFR (CKD-EPI)AfAm (60.0-200.0) Est GFR (CKD-EPI)NonAf (60.0-200.0) BUN/Creatinine Ratio (12.00-20.00) Ratio Glucose (74-99) mg/dL POC Glucose (mg/dL) (75-99) mg/dL AST (14-35) U/L Total Protein (6.2-8.2) g/dL Albumin (3.8-4.9) g/dL Albumin/Globulin Ratio (1.60-3.17) g/dL Urine Protein Trace H (Negative) Urine Ketones Trace H (Negative) Ur Leukocyte Esterase Large H (Negative) Urine WBC 106 H (0-5) /hpf Urine Bacteria Many H (None) /hpf Hyaline Casts 7 H (0-2) /lpf Urine Mucus Few H (None) /hpf 05/19/21 05/19/21 05/19/21 Range/Units 05:12 05:32 05:32 RBC 3.89 L (4.40-5.60) X 10*6/uL Hgb 12.1 L (13.0-17.0) g/dL MCV 104.6 H (80.0-97.0) fL MCHC 29.7 L (32.0-37.0) g/dL RDW 15.5 H (11.5-14.5) % Plt Count 120 L (140-440) X 10*3/uL Plt Count Comment DECREASED A Metamyelocytes % 1 H (0-0) % Lymphocytes # (Manual) 0.50 L (0.90-5.00) X 10*3/uL Monocytes # (Manual) 0.17 L (0.20-1.00) X 10*3/uL Eosinophils # (Manual) 0 L (0.04-0.35) X 10*3/uL ABG pH (7.35-7.45) ABG pCO2 (35-45) mmHg ABG pO2 (83-108) mmHg ABG HCO3 (21-25) mmol/L ABG Total CO2 (19-24) mmol/L ABG O2 Saturation (94-97) % Sodium 157 H (137-145) mmol/L Potassium 5.6 H (3.5-5.1) mmol/L Chloride 121 H (98-107) mmol/L BUN 63.1 H (9-20) mg/dL Creatinine 1.9 H (0.66-1.25) mg/dL Est GFR (CKD-EPI)AfAm 39.9 L (60.0-200.0) Est GFR (CKD-EPI)NonAf 34.5 L (60.0-200.0) BUN/Creatinine Ratio 33.21 H (12.00-20.00) Ratio Glucose (74-99) mg/dL POC Glucose (mg/dL) 103 H (75-99) mg/dL AST 39 H (14-35) U/L Total Protein 6.0 L (6.2-8.2) g/dL Albumin 3.1 L (3.8-4.9) g/dL Albumin/Globulin Ratio 1.07 L (1.60-3.17) g/dL Urine Protein (Negative) Urine Ketones (Negative) Ur Leukocyte Esterase (Negative) Urine WBC (0-5) /hpf Urine Bacteria (None) /hpf Hyaline Casts (0-2) /lpf Urine Mucus (None) /hpf 05/19/21 05/19/21 05/19/21 Range/Units 09:03 09:03 11:18 RBC 3.90 L (4.40-5.60) X 10*6/uL Hgb 12.7 L D (13.0-17.0) g/dL MCV 103.4 H (80.0-97.0) fL MCHC (32.0-37.0) g/dL RDW (11.5-14.5) % Plt Count (140-440) X 10*3/uL Plt Count Comment Metamyelocytes % (0-0) % Lymphocytes # (Manual) (0.90-5.00) X 10*3/uL Monocytes # (Manual) (0.20-1.00) X 10*3/uL Eosinophils # (Manual) (0.04-0.35) X 10*3/uL ABG pH 7.24 L (7.35-7.45) ABG pCO2 63 H (35-45) mmHg ABG pO2 81 L (83-108) mmHg ABG HCO3 27 H (21-25) mmol/L ABG Total CO2 29 H (19-24) mmol/L ABG O2 Saturation (94-97) % Sodium 153 H (137-145) mmol/L Potassium 5.8 H (3.5-5.1) mmol/L Chloride 124 H (98-107) mmol/L BUN 69 H (9-20) mg/dL Creatinine 1.97 H (0.66-1.25) mg/dL Est GFR (CKD-EPI)AfAm (60.0-200.0) Est GFR (CKD-EPI)NonAf (60.0-200.0) BUN/Creatinine Ratio (12.00-20.00) Ratio Glucose 144 H (74-99) mg/dL POC Glucose (mg/dL) (75-99) mg/dL AST (14-35) U/L Total Protein (6.2-8.2) g/dL Albumin (3.8-4.9) g/dL Albumin/Globulin Ratio (1.60-3.17) g/dL Urine Protein (Negative) Urine Ketones (Negative) Ur Leukocyte Esterase (Negative) Urine WBC (0-5) /hpf Urine Bacteria (None) /hpf Hyaline Casts (0-2) /lpf Urine Mucus (None) /hpf 05/19/21 Range/Units 11:36 RBC (4.40-5.60) X 10*6/uL Hgb (13.0-17.0) g/dL MCV (80.0-97.0) fL MCHC (32.0-37.0) g/dL RDW (11.5-14.5) % Plt Count (140-440) X 10*3/uL Plt Count Comment Metamyelocytes % (0-0) % Lymphocytes # (Manual) (0.90-5.00) X 10*3/uL Monocytes # (Manual) (0.20-1.00) X 10*3/uL Eosinophils # (Manual) (0.04-0.35) X 10*3/uL ABG pH (7.35-7.45) ABG pCO2 (35-45) mmHg ABG pO2 (83-108) mmHg ABG HCO3 (21-25) mmol/L ABG Total CO2 (19-24) mmol/L ABG O2 Saturation (94-97) % Sodium (137-145) mmol/L Potassium (3.5-5.1) mmol/L Chloride (98-107) mmol/L BUN (9-20) mg/dL Creatinine (0.66-1.25) mg/dL Est GFR (CKD-EPI)AfAm (60.0-200.0) Est GFR (CKD-EPI)NonAf (60.0-200.0) BUN/Creatinine Ratio (12.00-20.00) Ratio Glucose (74-99) mg/dL POC Glucose (mg/dL) 149 H (75-99) mg/dL AST (14-35) U/L Total Protein (6.2-8.2) g/dL Albumin (3.8-4.9) g/dL Albumin/Globulin Ratio (1.60-3.17) g/dL Urine Protein (Negative) Urine Ketones (Negative) Ur Leukocyte Esterase (Negative) Urine WBC (0-5) /hpf Urine Bacteria (None) /hpf Hyaline Casts (0-2) /lpf Urine Mucus (None) /hpf Microbiology - Last 24 Hours (Table) 05/17/21 22:00 Blood Culture - Preliminary Blood No Growth after 24 hours Assessment and Plan Assessment: Patient with acute respiratory failure which is multifactorial in this patient with initial diagnosis of COVID-19 pneumonia in this patient did have significant worsening of his respiratory status requiring intubation, patient is currently covered with a dexamethasone Lovenox zinc and ascorbic acid along with empiric Zosyn
--- NOTE | 2021-05-20 23:06 | P.PN ---
Subjective Progress Note Date: 05/20/21 Principal diagnosis: COVID-19 pneumonia Interval history: Patient is a 70-year-old male presented to the hospital with acute respiratory failure in this but have a evidence of multifocal pneumonia secondary to COVID-19. Patient did have worsening of his respiratory status requiring intubation on 05/19/2021 On today's evaluation that is 05/20/2021 patient is afebrile, remains to be intubated on the vent, FiO2 is currently down to 40%, no significant purulent secretion through the ET reported by the nursing staff no vomiting or any diarrhea has been reported Objective - Vital Signs Vital signs: Vital Signs Temp 98.1 F 05/20/21 20:00 Pulse 49 L 05/20/21 22:30 Resp 35 H 05/20/21 22:30 BP 125/74 05/20/21 12:00 Pulse Ox 97 05/20/21 22:30 Intake & Output 05/20/21 05/20/21 05/21/21 06:59 18:59 06:59 Intake Total 2140.592 1459.689 430.211 Output Total 775 1040 380 Balance 1365.592 419.689 50.211 Weight 65 kg 65 kg Intake: IV 1500 920 240 D5W 1200 Dextrose 10% in Water 500 920 210 ml In Empty Bag 1 bag @ 70 mls/hr IV .Q7H9M [facility] Rx#:[id number] Sodium Chloride 0.9% 1, 30 000 ml @ 999 mls/hr IV . Q1H1M [facility] Rx#:[id number] Valproate Sodium 250 mg 200 In Sodium Chloride 0.9% 100 ml @ 100 mls/hr IVPB Q6HR@0300,0900,1500,2100 [facility] Rx#:[id number] zosyn 100 Intake, IV Titration 640.592 539.689 160.211 Amount Norepinephrine 4 mg In 466.492 383.039 60.211 Sodium Chloride 0.9% 250 ml @ 0.05 MCG/KG/MIN 11. 838 mls/hr IV .[id number] [facility] Rx#:[id number] propofoL 1,000 mg In 174.1 156.650 100 Empty Bag 1 bag @ Titrate IV .Q0M [facility] Rx#: [id number] Tube Feeding 30 Output: Urine 775 1040 380 Other: Voiding Method Indwelling Catheter Indwelling Catheter Indwelling Catheter ABP, PAP, CO, CI - Last Documented Arterial Blood Pressure 132/54 - Exam General description is an elderly male intubated on the vent Respiratory system:Unlabored breathing, decreased intensity in breath sounds. No wheeze. Heart S1, S2. Regular rate and rhythm. Abdomen soft, no tenderness. Extremities: No edema feet - Labs CBC & Chem 7: 05/20/21 03:00 05/20/21 16:18 Labs: Abnormal Lab Results - Last 24 Hours (Table) 05/19/21 05/20/21 05/20/21 Range/Units 18:56 03:00 03:00 WBC 14.6 H (3.8-10.6) k/uL RBC 3.90 L (4.30-5.90) m/uL Hgb 12.1 L (13.0-17.5) gm/dL MCV 101.1 H (80.0-100.0) fL MCHC 30.7 L (31.0-37.0) g/dL Neutrophils # (Manual) 12.90 H (1.3-7.7) k/uL Lymphocytes # (Manual) 0.88 L (1.0-4.8) k/uL Metamyelocytes # (Man) 0.44 H (0) k/uL ABG pH (7.35-7.45) ABG pCO2 (35-45) mmHg ABG pO2 (83-108) mmHg ABG HCO3 (21-25) mmol/L ABG Total CO2 (19-24) mmol/L ABG O2 Saturation (94-97) % Sodium 153 H (137-145) mmol/L Chloride 121 H (98-107) mmol/L BUN 55 H (9-20) mg/dL Creatinine 2.07 H (0.66-1.25) mg/dL Glucose <20 L* (74-99) mg/dL POC Glucose (mg/dL) (75-99) mg/dL Calcium (8.4-10.2) mg/dL C-Reactive Protein 7.2 H (<1.0) mg/dL Total Protein 6.0 L (6.3-8.2) g/dL Albumin 2.8 L (3.5-5.0) g/dL Procalcitonin 0.12 H (0.02-0.09) ng/mL 05/20/21 05/20/21 05/20/21 Range/Units 04:01 05:10 05:21 WBC (3.8-10.6) k/uL RBC (4.30-5.90) m/uL Hgb (13.0-17.5) gm/dL MCV (80.0-100.0) fL MCHC (31.0-37.0) g/dL Neutrophils # (Manual) (1.3-7.7) k/uL Lymphocytes # (Manual) (1.0-4.8) k/uL Metamyelocytes # (Man) (0) k/uL ABG pH 7.18 L* (7.35-7.45) ABG pCO2 70 H (35-45) mmHg ABG pO2 (83-108) mmHg ABG HCO3 26 H (21-25) mmol/L ABG Total CO2 29 H (19-24) mmol/L ABG O2 Saturation (94-97) % Sodium (137-145) mmol/L Chloride (98-107) mmol/L BUN (9-20) mg/dL Creatinine (0.66-1.25) mg/dL Glucose (74-99) mg/dL POC Glucose (mg/dL) 208 H 47 L (75-99) mg/dL Calcium (8.4-10.2) mg/dL C-Reactive Protein (<1.0) mg/dL Total Protein (6.3-8.2) g/dL Albumin (3.5-5.0) g/dL Procalcitonin (0.02-0.09) ng/mL 05/20/21 05/20/21 05/20/21 Range/Units 05:22 06:47 10:20 WBC (3.8-10.6) k/uL RBC (4.30-5.90) m/uL Hgb (13.0-17.5) gm/dL MCV (80.0-100.0) fL MCHC (31.0-37.0) g/dL Neutrophils # (Manual) (1.3-7.7) k/uL Lymphocytes # (Manual) (1.0-4.8) k/uL Metamyelocytes # (Man) (0) k/uL ABG pH (7.35-7.45) ABG pCO2 (35-45) mmHg ABG pO2 (83-108) mmHg ABG HCO3 (21-25) mmol/L ABG Total CO2 (19-24) mmol/L ABG O2 Saturation (94-97) % Sodium 148 H (137-145) mmol/L Chloride 121 H (98-107) mmol/L BUN 49 H (9-20) mg/dL Creatinine 1.93 H (0.66-1.25) mg/dL Glucose 113 H (74-99) mg/dL POC Glucose (mg/dL) 44 L 64 L (75-99) mg/dL Calcium 7.8 L (8.4-10.2) mg/dL C-Reactive Protein (<1.0) mg/dL Total Protein (6.3-8.2) g/dL Albumin (3.5-5.0) g/dL Procalcitonin (0.02-0.09) ng/mL 05/20/21 05/20/21 05/20/21 Range/Units 10:30 13:46 16:18 WBC (3.8-10.6) k/uL RBC (4.30-5.90) m/uL Hgb (13.0-17.5) gm/dL MCV (80.0-100.0) fL MCHC (31.0-37.0) g/dL Neutrophils # (Manual) (1.3-7.7) k/uL Lymphocytes # (Manual) (1.0-4.8) k/uL Metamyelocytes # (Man) (0) k/uL ABG pH (7.35-7.45) ABG pCO2 (35-45) mmHg ABG pO2 157 H (83-108) mmHg ABG HCO3 (21-25) mmol/L ABG Total CO2 25 H (19-24) mmol/L ABG O2 Saturation 99.9 H (94-97) % Sodium 148 H (137-145) mmol/L Chloride 121 H (98-107) mmol/L BUN 47 H (9-20) mg/dL Creatinine 1.82 H (0.66-1.25) mg/dL Glucose 177 H (74-99) mg/dL POC Glucose (mg/dL) 103 H (75-99) mg/dL Calcium 8.0 L (8.4-10.2) mg/dL C-Reactive Protein (<1.0) mg/dL Total Protein (6.3-8.2) g/dL Albumin (3.5-5.0) g/dL Procalcitonin (0.02-0.09) ng/mL 05/20/21 Range/Units 16:19 WBC (3.8-10.6) k/uL RBC (4.30-5.90) m/uL Hgb (13.0-17.5) gm/dL MCV (80.0-100.0) fL MCHC (31.0-37.0) g/dL Neutrophils # (Manual) (1.3-7.7) k/uL Lymphocytes # (Manual) (1.0-4.8) k/uL Metamyelocytes # (Man) (0) k/uL ABG pH (7.35-7.45) ABG pCO2 (35-45) mmHg ABG pO2 (83-108) mmHg ABG HCO3 (21-25) mmol/L ABG Total CO2 (19-24) mmol/L ABG O2 Saturation (94-97) % Sodium (137-145) mmol/L Chloride (98-107) mmol/L BUN (9-20) mg/dL Creatinine (0.66-1.25) mg/dL Glucose (74-99) mg/dL POC Glucose (mg/dL) 169 H (75-99) mg/dL Calcium (8.4-10.2) mg/dL C-Reactive Protein (<1.0) mg/dL Total Protein (6.3-8.2) g/dL Albumin (3.5-5.0) g/dL Procalcitonin (0.02-0.09) ng/mL Microbiology - Last 24 Hours (Table) 05/19/21 18:56 Blood Culture - Preliminary Blood No Growth after 24 hours 05/19/21 18:56 Blood Culture - Preliminary Blood No Growth after 24 hours 05/19/21 Unknown Gram Stain - Preliminary Sputum Sputum Culture - Preliminary 05/17/21 22:00 Blood Culture - Preliminary Blood No Growth after 48 hours Assessment and Plan Assessment: Patient with acute respiratory failure which is multifactorial in this patient with initial diagnosis of COVID-19 pneumonia in this patient did have significa nt worsening of his respiratory status requiring intubation, patient is currently covered with a dexamethasone Lovenox zinc and ascorbic acid along with empiric Zosyn, blood and sputum cultures will be followed and antibiotic adjusted if needed
[2021-05-21 00:01] LABS: Glucose,Whole Blood 197 mg/dL (75-99)
[2021-05-21] MEDS: PIPERACILLIN-TAZOBACTAM 3.375 GM in SODIUM CHLORIDE 0.9% 100 ML IVPB SCH ×4 (00:15→23:32)
[2021-05-21] MEDS: DEXTROSE 5%-0.9% NACL 1,000 ML IV SCH ×3 (00:18→13:28)
[2021-05-21] MEDS: VALPROATE SODIUM 250 MG in SODIUM CHLORIDE 0.9% 100 ML IVPB SCH ×4 (04:01→20:31)
[2021-05-21 04:31] LABS: Basophils % (A) 0 %; Eosinophils # (A) 0.1 k/uL (0-0.7); Eosinophils % (A) 1 %; HGB 10.4 gm/dL (13.0-17.5); Hypochromasia Slight; Lymphocytes # (A) 0.6 k/uL (1.0-4.8); Lymphocytes % (A) 7 %; MCH 32.2 pg (25.0-35.0); MCHC 32.4 g/dL (31.0-37.0); MCV 99.1 fL (80.0-100.0); Macrocytosis Slight; Mean Platelet Volume 8.3; Monocytes # (A) 0.3 k/uL (0-1.0); Monocytes % (A) 4 %; Neutrophils # (A) 7.4 k/uL (1.3-7.7); Neutrophils % (A) 87 %; Platelet Count 136 k/uL (150-450); Poikilocytosis Slight; RBC 3.23 m/uL (4.30-5.90); RDW 15.3 % (11.5-15.5); WBC 8.5 k/uL (3.8-10.6)
[2021-05-21 04:46] LABS: Albumin 2.2 g/dL (3.5-5.0); C Reactive Protein 8.9 mg/dL (<1.0); Calcium 8.3 mg/dL (8.4-10.2); Total Bilirubin 0.4 mg/dL (0.2-1.3); Total Protein 4.8 g/dL (6.3-8.2)
[2021-05-21 05:53] LABS: ABG Base Excess 0.4 mmol/L; ABG HCO3 25 mmol/L (21-25); ABG Oxygen Saturation 95.3 % (94-97); ABG PCO2 41 mmHg (35-45); ABG PO2 71 mmHg (83-108); ABG TCO2 27 mmol/L (19-24); Allen Test Performed? Yes
[2021-05-21 06:06] LABS: Glucose,Whole Blood 183 mg/dL (75-99)
[2021-05-21] MEDS: NOREPINEPHRINE 4 MG in SODIUM CHLORIDE 0.9% 250 ML IV SCH ×3 (07:05→23:27)
[2021-05-21] MEDS: ALBUTEROL HFA INHALER INHALATION SCH ×4 (07:56→19:42)
[2021-05-21] MEDS: DEXAMETHASONE SOD PHOSPHATE 10 MG/ML 1 ML VIAL IVP SCH (08:06)
[2021-05-21] MEDS: CLOPIDOGREL 75 MG TAB PO SCH (08:06)
[2021-05-21] MEDS: FOLIC ACID 1 MG TAB PO SCH (08:06)
[2021-05-21] MEDS: CHLORHEXIDINE GLUCONATE 15 ML CUP MUCOUS MEM SCH ×2 (08:06→20:31)
[2021-05-21] MEDS: ENOXAPARIN 30 MG/0.3 ML SYRINGE SQ SCH (08:06)
[2021-05-21] MEDS: FERROUS SULFATE 325 MG TAB PO SCH (08:06)
--- NOTE | 2021-05-21 08:24 | XR ---
EXAMINATION TYPE: XR chest 1V portable DATE OF EXAM: 05/21/2021 COMPARISON: Chest x-ray 05/20/2021 HISTORY: Covid pneumonia TECHNIQUE: Single frontal view of the chest is obtained. FINDINGS: Bilateral airspace disease is again noted, interstitial changes are present with prominent lung volumes which may be indicative of underlying COPD. Right-sided jugular central venous catheter shows the distal tip overlying the cavoatrial junction level. No evident pneumothorax. Cardiac media stinal silhouette is likely stable. Patient is rotated, there are overlying artifacts. IMPRESSION: Findings are similar to prior exam, correlate for pneumonia, edema, difficult to exclude effusion
--- NOTE | 2021-05-21 09:03 | P.PN ---
Subjective Patient is seen in follow-up for acute kidney injury on chronic kidney disease. Renal function improving. Nonoliguric. Tube feeds started. On Levophed. Sodium level 149 today. Intubated. Vital signs are stable. On Levophed. HEENT: Intubated. LUNGS: Breath sounds decreased. HEART: Rate and Rhythm are regular. ABDOMEN: No distention. EXTREMITITES: No edema. Objective - Vital Signs Vital signs: Vital Signs Temp 96.4 F L 05/21/21 04:00 Pulse 101 H 05/21/21 07:00 Resp 39 H 05/21/21 07:00 BP 125/74 05/21/21 07:00 Pulse Ox 96 05/21/21 07:00 Intake & Output 05/20/21 05/21/21 05/21/21 18:59 06:59 18:59 Intake Total 4248.620 9505.211 Output Total 1040 1300 Balance 419.689 140.211 Weight 65 kg 64.4 kg Intake: IV 920 1060 Dextrose 10% in Water 500 920 350 ml In Empty Bag 1 bag @ 70 mls/hr IV .Q7H9M [facility] Rx#:[id number] Dextrose 5%-0.9% NaCl 1, 490 000 ml @ 100 mls/hr IV . Q10H [facility] Rx#:[id number] Piperacillin-Tazobactam 3 100 .375 gm In Sodium Chloride 0.9% 100 ml @ 25 mls/hr IVPB Q8HR [facility] Rx# :[id number] Sodium Chloride 0.9% 1, 120 000 ml @ 999 mls/hr IV . Q1H1M [facility] Rx#:[id number] Intake, IV Titration 539.689 260.211 Amount Norepinephrine 4 mg In 383.039 60.211 Sodium Chloride 0.9% 250 ml @ 0.05 MCG/KG/MIN 11. 838 mls/hr IV .[id number] [facility] Rx#:[id number] propofoL 1,000 mg In 156.650 200 Empty Bag 1 bag @ Titrate IV .Q0M [facility] Rx#: [id number] Tube Feeding 120 Output: Urine 1040 1300 Other: Voiding Method Indwelling Catheter Indwelling Catheter ABP, PAP, CO, CI - Last Documented Arterial Blood Pressure 98/55 - Labs CBC & Chem 7: 05/21/21 03:45 05/21/21 03:45 Labs: Abnormal Lab Results - Last 24 Hours (Table) 05/20/21 05/20/21 05/20/21 Range/Units 10:20 10:30 13:46 RBC (4.30-5.90) m/uL Hgb (13.0-17.5) gm/dL Hct (39.0-53.0) % Plt Count (150-450) k/uL Lymphocytes # (1.0-4.8) k/uL ABG pO2 157 H (83-108) mmHg ABG Total CO2 25 H (19-24) mmol/L ABG O2 Saturation 99.9 H (94-97) % Sodium 148 H (137-145) mmol/L Chloride 121 H (98-107) mmol/L BUN 49 H (9-20) mg/dL Creatinine 1.93 H (0.66-1.25) mg/dL Glucose 113 H (74-99) mg/dL POC Glucose (mg/dL) 103 H (75-99) mg/dL Calcium 7.8 L (8.4-10.2) mg/dL AST (17-59) U/L C-Reactive Protein (<1.0) mg/dL Total Protein (6.3-8.2) g/dL Albumin (3.5-5.0) g/dL 05/20/21 05/20/21 05/20/21 Range/Units 16:18 16:19 23:59 RBC (4.30-5.90) m/uL Hgb (13.0-17.5) gm/dL Hct (39.0-53.0) % Plt Count (150-450) k/uL Lymphocytes # (1.0-4.8) k/uL ABG pO2 (83-108) mmHg ABG Total CO2 (19-24) mmol/L ABG O2 Saturation (94-97) % Sodium 148 H (137-145) mmol/L Chloride 121 H (98-107) mmol/L BUN 47 H (9-20) mg/dL Creatinine 1.82 H (0.66-1.25) mg/dL Glucose 177 H (74-99) mg/dL POC Glucose (mg/dL) 169 H 197 H (75-99) mg/dL Calcium 8.0 L (8.4-10.2) mg/dL AST (17-59) U/L C-Reactive Protein (<1.0) mg/dL Total Protein (6.3-8.2) g/dL Albumin (3.5-5.0) g/dL 05/21/21 05/21/21 05/21/21 Range/Units 03:45 03:45 05:49 RBC 3.23 L (4.30-5.90) m/uL Hgb 10.4 L (13.0-17.5) gm/dL Hct 32.0 L (39.0-53.0) % Plt Count 136 L (150-450) k/uL Lymphocytes # 0.6 L (1.0-4.8) k/uL ABG pO2 71 L (83-108) mmHg ABG Total CO2 27 H (19-24) mmol/L ABG O2 Saturation (94-97) % Sodium 149 H (137-145) mmol/L Chloride 121 H (98-107) mmol/L BUN 40 H (9-20) mg/dL Creatinine 1.58 H (0.66-1.25) mg/dL Glucose 162 H (74-99) mg/dL POC Glucose (mg/dL) (75-99) mg/dL Calcium 8.3 L (8.4-10.2) mg/dL AST 12 L (17-59) U/L C-Reactive Protein 8.9 H (<1.0) mg/dL Total Protein 4.8 L (6.3-8.2) g/dL Albumin 2.2 L (3.5-5.0) g/dL 05/21/21 Range/Units 06:05 RBC (4.30-5.90) m/uL Hgb (13.0-17.5) gm/dL Hct (39.0-53.0) % Plt Count (150-450) k/uL Lymphocytes # (1.0-4.8) k/uL ABG pO2 (83-108) mmHg ABG Total CO2 (19-24) mmol/L ABG O2 Saturation (94-97) % Sodium (137-145) mmol/L Chloride (98-107) mmol/L BUN (9-20) mg/dL Creatinine (0.66-1.25) mg/dL Glucose (74-99) mg/dL POC Glucose (mg/dL) 183 H (75-99) mg/dL Calcium (8.4-10.2) mg/dL AST (17-59) U/L C-Reactive Protein (<1.0) mg/dL Total Protein (6.3-8.2) g/dL Albumin (3.5-5.0) g/dL Microbiology - Last 24 Hours (Table) 05/17/21 22:00 Blood Culture - Preliminary Blood No Growth after 72 hours 05/19/21 18:56 Blood Culture - Preliminary Blood No Growth after 24 hours 05/19/21 18:56 Blood Culture - Preliminary Blood No Growth after 24 hours 05/19/21 Unknown Gram Stain - Preliminary Sputum Sputum Culture - Preliminary Assessment and Plan Plan: Assessment: 1. Acute kidney injury secondary to ATN secondary to septic shock. Creatinine peaked at 2.07 this admission - 1.58 today. Nonoliguric. 2. Chronic kidney disease stage IIIa with baseline creatinine in the range of 1.2-1.4 secondary to nephrosclerosis. 3. Hypernatremia from the lack of oral water intake. 4. Septic shock secondary to COVID-19 pneumonia. Also concern for aspiration pneumonia. 5. Hyperkalemia secondary to acute kidney injury. Improved with medical management. 6. Hypoglycemia s/p D10. Resolved. Plan: Maintain D5W at 100 mL an hour. Repeat sodium level at noon. Wean FiO2 and vasopressors. Avoid nephrotoxins. Continue to monitor renal function and urine output.
[2021-05-21 11:36] LABS: Glucose,Whole Blood 160 mg/dL (75-99)
[2021-05-21 13:28] LABS: Calcium 8.2 mg/dL (8.4-10.2); Potassium 4.2 mmol/L (3.5-5.1)
--- NOTE | 2021-05-21 15:12 | P.PN ---
Subjective Progress Note Date: 05/21/21 Principal diagnosis: Acute COVID-19 pneumonia This is a 70-year-old male patient, brought into the emergency department by a caregiver. The patient is unable to volunteer any history. He has issues with dementia and mental health. In fact he is unable to communicate. He is currently in the hospital for COVID pneumonia. The patient initially went to [place] where he was seen in the [facility] for COVID 19 infection. He was discharged home. This is approximately 4 days ago. Following that, the caregiver sent the patient to our hospital as the patient's condition was getting worse and apparently continued to have worsening mentation. The patient was unable to communicate time of his admission. He was mumbling and unable to make full sentences or other words. He was restless in bed. At times agitated. At times screaming. He was quite uncooperative during the evaluation. No history of any head trauma. The patient apparently had a fall and he sustained a trauma to his neck area following the fall. This occurred at home in a bathtub. In the emergency department, the patient was found to be hypoxic with a pulse ox of 80% and the patient required oxygen. The patient is currently on oxygen at 10 L high flow. Initial CAT scan of the brain and the CAT scan of the C-spine showed no acute process. The patient was given 10 mg of Decadron in the emergency department regarding his COVID 19 pneumonia. Chest x-ray showed bilateral lower lobe airspace disease. Note that the pulmonary infiltrates were worse on the right compared to the leftand the infiltrate was rather asymmetric, which obviously raises concerns for an underlying pneumonia, aspiration and the patient was given a dose of Rocephin and Zithromax in the emergency department. His white cell count is at 6.4 with a hemoglobin of 12 and a platelet count of 130. Sodium was 155 this morning with a potassium level of 6.1, BUN is at 50 with a creatinine of 1.5, LFTs are normal, lactic acid level was at 1.9, pro calcitonin level is at 0.16, d-dimer is at 0.8 and the rest of the coagulation profile is within normal limits. The patient is currently on IV Decadron. On 05/19/2021 patient seen in follow-up in the intensive care unit, overnight his condition continued to deteriorate, and early this morning at 4:00 on 05/19/2021 patient had rapid response team called to the bedside for concern of worsening shortness of breath, and worsening hypoxia, patient was confused and in respiratory distress, he is not answering any questions, on 10 L of oxygen his pulse ox was 94%, however his mental status was significantly altered, patient was transferred to the intensive care unit for high likelihood of intubation, this morning she was intubated and placed on mechanical ventilator, with assist-control mode of ventilation with a rate of 30, tidal on was 300, FiO2 100% and PEEP of 5. Early in the morning his blood gases showed pO2 of 82, pCO2 of 80, and pH of 7.18, this was done and FiO2 of 70%. Post intubation blood gas showed a pO2 of 81, pCO2 of 63, and pH of 7.24, this was done and FiO2 of 50%. Patient was hypotensive following intubation, he was given 2 L of fluid boluses, and his maintenance IV fluid is D5W at 50 ML per hour which will be switched to normal saline, he is on norepinephrine at 0.14 mics per kilo per minute, Diprivan infusion at 50 mics per kilo per minute. He remains on prophylactic Lovenox 40 mg daily, and Decadron 6 mg daily. He remains on his home medications including Lipitor, Plavix, Depakote, iron supplementation, his antipsychotics, midodrine which patient have not been able to take related to his altered mental status. Patient was also suspected to be aspirating, and he was placed on Zosyn for empiric antibiotic coverage. Today's labs have been reviewed, his white blood cell count is 7.1, hemoglobin of 12.7, sodium is 153 and patient has been on D5W at a rate of 100 ML per hour, his oral intake has been extremely poor, potassium is 5.8, chloride is 124, BUN of 69, creatinine is 1.97. Patient's extremely cachectic, and frail. This morning patient had to be intubated and placed on mechanical ventilator, we will initiate tube feedings today, consult registered dietitian for tube feeding recommendation, patient will be fluid bolused, and stabilized hemodynamically. On 05/20/2021 patient seen in follow-up in intensive care unit. Yesterday he was intubated and placed on mechanical ventilator in view of worsening hypoxia and dyspnea. Today he remains sedated, and intubated on assist control mode of ventilation with a rate of 30, tidal volume is 325, FiO2 of 50% and PEEP of 10, this morning blood gases shows pO2 of 95, pCO2 of 70, and pH of 7.18. This was done on the above mentioned ventilator settings, today's chest x-ray shows some improvement of bibasilar infiltrates more so on the right, and possibility of developing small right pleural effusion. Patient is currently on a vasopressor support in the form of norepinephrine is 0.38 mics per kilo per minute which is about 24.7 mics per minute, he is on Diprivan at 50 mics per kilo per minute, and overnight he had episode of hypoglycemia and patient was placed on 10% dextrose at a rate of 100 ML per hour, patient was extremely dehydrated prior to his intubation, his had very poor oral intake. He was given 2 L fluid bolus yesterday, however still requiring vasopressor support, and case was discussed with nephrology who agreed that patient is still extremely intravascular volume depleted, and is recommending another 1 or 2 L fluid bolus today. Today's labs have been reviewed and his white blood cell count is 14.6, hemoglobin is 12.1, platelet count is 223, sodium is 148, potassium is 4.7, chloride is 121, CO2 is 23, BUN of 49 creatinine is 1.93, his LDH is 560, within normal limits, and CRP is 7.2, improving, his last proBNP from a couple days ago was 5790 however patient seems to be extremely dehydrated. His pro calcitonin levels were negative 2 at 0.16, and 0.12 however his chest x-ray findings suggest possibility of aspiration pneumonia, and patient was placed on Zosyn for possibility of aspiration. Sputum culture has been sent and pending, preliminary Gram stain showing few PMNs, rare budding yeast, final culture is pending, blood cultures are negative thus far. On 05/21/2021 patient seen in follow-up in intensive care unit, patient remains sedated, and intubated on assist control mode of ventilation with a rate of 36, tidal volume was 375, FiO2 of 40% and 5. The blood count shows pO2 of 71, pCO2 of 41, pH is 7.40, today's chest x-ray has been reviewed showing bilateral airspace disease with interstitial changes and prominent lung volumes indicative of underlying COPD. Vital signs have been stable overnight, patient is on norepinephrine 0.1 mics per kilo per minute, Diprivan is present, and D5W at 100 ML per hour, and plan an 70-20 ML per hour, he is on tube feedings with Nepro at 20 ML per hour and 10 of water flushes, he is in sinus mechanism with a rate of 82 BPM, patient has had fevers overnight with a temp of 100.5F. He is covered with Zosyn. His blood cultures have been negative, his sputum culture showed yeast species, culture is pending. Today's labs have been reviewed and his white blood cell count is 8.5, hemoglobin is 10.4, his sodium is improved and is down to 149, in follow-up sodium level came back at 151, patient remains on free water at 100 ML per hour, nephrology is following. Potassium is 4.0, chloride is 121, BUN is 40, creatinine is improved and is down to 1.58, his cortisol level 7, and this was on IV Decadron 6 mg daily, and patient remains on prophylactic dose Lovenox, Zosyn, yesterday he received an additional liter bolus in IV fluids. His urine output is in the order of 100-125 ML per hour. Overall his oxygenation and ventilation have significantly improved, and patient is maintaining stable O2 saturations on FiO2 of 40% and PEEP of 5, his peak Pressure is only 18, his plateau is 13. Objective - Vital Signs Vital signs: Vital Signs Temp 100.4 F H 05/21/21 12:00 Pulse 78 05/21/21 13:30 Resp 36 H 05/21/21 13:30 BP 125/74 05/21/21 07:00 Pulse Ox 99 05/21/21 13:30 Intake & Output 05/20/21 05/21/21 05/21/21 18:59 06:59 18:59 Intake Total 1072.869 9077.211 662.953 Output Total 1040 1300 400 Balance 419.689 140.211 262.953 Weight 65 kg 64.4 kg Intake: IV 920 1060 500 Dextrose 10% in Water 500 920 350 ml In Empty Bag 1 bag @ 70 mls/hr IV .Q7H9M [facility] Rx#:[id number] Dextrose 5%-0.9% NaCl 1, 490 500 000 ml @ 100 mls/hr IV . Q10H [facility] Rx#:[id number] Piperacillin-Tazobactam 3 100 .375 gm In Sodium Chloride 0.9% 100 ml @ 25 mls/hr IVPB Q8HR [facility] Rx# :[id number] Sodium Chloride 0.9% 1, 120 000 ml @ 999 mls/hr IV . Q1H1M [facility] Rx#:[id number] Intake, IV Titration 539.689 260.211 162.953 Amount Norepinephrine 4 mg In 383.039 60.211 64.478 Sodium Chloride 0.9% 250 ml @ 0.05 MCG/KG/MIN 11. 838 mls/hr IV .[id number] [facility] Rx#:[id number] propofoL 1,000 mg In 156.650 200 98.475 Empty Bag 1 bag @ Titrate IV .Q0M [facility] Rx#: [id number] Tube Feeding 120 Output: Urine 1040 1300 400 Other: Voiding Method Indwelling Catheter Indwelling Catheter Indwelling Catheter ABP, PAP, CO, CI - Last Documented Arterial Blood Pressure 123/56 - Exam GENERAL EXAM: Extremely frail and cachectic 70-year-old white male, intubated, and sedated on assist control mode of ventilation with a rate of 36, tidal on his 375, FiO2 40% and PEEP of 5, comfortable in no apparent distress. HEAD: Normocephalic/atraumatic. EYES: Normal reaction of pupils, equal size. Conjunctiva pink, sclera white. NOSE: Clear with pink turbinates. THROAT: No erythema or exudates. NECK: No masses, no JVD, no thyroid enlargement, no adenopathy. CHEST: No chest wall deformity. Symmetrical expansion. LUNGS: Equal air entry with diminished breath sounds and crackles CVS: Regular rate and rhythm, normal S1 and S2, no gallops, no murmurs, no rubs ABDOMEN: Soft, nontender. No hepatosplenomegaly, normal bowel sounds, no guarding or rigidity. EXTREMITIES: No clubbing, no edema, no cyanosis, 2+ pulses and upper and lower extremities. MUSCULOSKELETAL: Muscle strength and tone normal. SPINE: No scoliosis or deformity SKIN: No rashes CENTRAL NERVOUS SYSTEM: Sedated, intubated No focal deficits, tone is normal in all 4 extremities. - Labs CBC & Chem 7: 05/21/21 03:45 05/21/21 12:47 Labs: Abnormal Lab Results - Last 24 Hours (Table) 05/20/21 05/20/21 05/20/21 Range/Units 16:18 16:19 23:59 RBC (4.30-5.90) m/uL Hgb (13.0-17.5) gm/dL Hct (39.0-53.0) % Plt Count (150-450) k/uL Lymphocytes # (1.0-4.8) k/uL ABG pO2 (83-108) mmHg ABG Total CO2 (19-24) mmol/L Sodium 148 H (137-145) mmol/L Chloride 121 H (98-107) mmol/L BUN 47 H (9-20) mg/dL Creatinine 1.82 H (0.66-1.25) mg/dL Glucose 177 H (74-99) mg/dL POC Glucose (mg/dL) 169 H 197 H (75-99) mg/dL Calcium 8.0 L (8.4-10.2) mg/dL AST (17-59) U/L C-Reactive Protein (<1.0) mg/dL Total Protein (6.3-8.2) g/dL Albumin (3.5-5.0) g/dL 05/21/21 05/21/21 05/21/21 Range/Units 03:45 03:45 05:49 RBC 3.23 L (4.30-5.90) m/uL Hgb 10.4 L (13.0-17.5) gm/dL Hct 32.0 L (39.0-53.0) % Plt Count 136 L (150-450) k/uL Lymphocytes # 0.6 L (1.0-4.8) k/uL ABG pO2 71 L (83-108) mmHg ABG Total CO2 27 H (19-24) mmol/L Sodium 149 H (137-145) mmol/L Chloride 121 H (98-107) mmol/L BUN 40 H (9-20) mg/dL Creatinine 1.58 H (0.66-1.25) mg/dL Glucose 162 H (74-99) mg/dL POC Glucose (mg/dL) (75-99) mg/dL Calcium 8.3 L (8.4-10.2) mg/dL AST 12 L (17-59) U/L C-Reactive Protein 8.9 H (<1.0) mg/dL Total Protein 4.8 L (6.3-8.2) g/dL Albumin 2.2 L (3.5-5.0) g/dL 05/21/21 05/21/21 05/21/21 Range/Units 06:05 11:34 12:47 RBC (4.30-5.90) m/uL Hgb (13.0-17.5) gm/dL Hct (39.0-53.0) % Plt Count (150-450) k/uL Lymphocytes # (1.0-4.8) k/uL ABG pO2 (83-108) mmHg ABG Total CO2 (19-24) mmol/L Sodium 151 H (137-145) mmol/L Chloride 123 H (98-107) mmol/L BUN 36 H (9-20) mg/dL Creatinine 1.61 H (0.66-1.25) mg/dL Glucose 168 H (74-99) mg/dL POC Glucose (mg/dL) 183 H 160 H (75-99) mg/dL Calcium 8.2 L (8.4-10.2) mg/dL AST (17-59) U/L C-Reactive Protein (<1.0) mg/dL Total Protein (6.3-8.2) g/dL Albumin (3.5-5.0) g/dL Microbiology - Last 24 Hours (Table) 05/19/21 Unknown Gram Stain - Preliminary Sputum Sputum Culture - Preliminary Yeast species 05/17/21 22:00 Blood Culture - Preliminary Blood No Growth after 72 hours 05/19/21 18:56 Blood Culture - Preliminary Blood No Growth after 24 hours 05/19/21 18:56 Blood Culture - Preliminary Blood No Growth after 24 hours Assessment and Plan Plan: Assessment: #1. Acute hypoxic respiratory failure related to acute COVID-19 pneumonia, and possibility of bacterial infection/aspiration related pneumonia is not entirely excluded. Patient was brought into the emergency department on 05/17/2021 per EMS, patient is a poor historian, reportedly has history of bipolar disease and dementia. Came in primarily for evaluation of altered mental status. Transferred from [place] emergency department for COVID-19 related pneumonia. The patient was taken to the hospital in [place] 4 days prior to this admission and the symptom onset was probably even prior to that. Exact onset of symptoms is not known. Patient was transferred to the intensive care unit on 05/19/2021 for worsening hypoxia, and hypercapnia, and altered mental status, and was intubated on 05/19/2021 on assist control mode of ventilation with a rate of 30, tidal on his 300, FiO2 50% and PEEP of 10. Today on 05/21/2021 patient is on assist-control with a rate of 26, tidal vital 375, FiO2 40% and PEEP of 5, oxygenation, ventilation are improved #2. Acute hypercapnic respiratory failure, related to acute aspiration, and possible COVID-19 pneumonia, intubated #3. Hypotension, related to dehydration, and possibility of septic shock is not excluded. Patient remains on norepinephrine for vasopressor support, serum cortisol level was only 7, will be placed on hydrocortisone at stress doses #4. Altered mental status with worsening from baseline #5. History of dementia and schizoaffective disorder #6. Acute dehydration and hypernatremia, on the D5W at 100 ML per hour, improving #7. Chronic stage 3 kidney disease #8. COPD #9. History of coronary artery disease #10. GERD/reflux #11. Hyperlipidemia #12. Acute kidney injury related to ATN, and dehydration, patient continues on IV hydration and continues to receive fluid boluses #13. Hyperkalemia related to [place], resolved #14. Hypoglcemia, was placed on D10 at 100 ml, will start tube feeds today. Blood sugars improved Plan: Today's blood gases, labs, CXR and labs reviewed Continue current ventilator settings with assist control and a rate of 36, tidal on his 375, FiO2 40% and PEEP of 5 We will add hydrocortisone 100 mg every 8 hours IV push Discontinue Decadron Continue D5W at 100 Continue tube feedings Continue same antibiotic coverage Proceed with daily traction of sedation If patient wakes up and follows command proceed with a pressure support of 5 and CPAP of 5 We'll continue to closely follow Overall seems to be debilitated Do not anticipate patient being weaned off the vent possibly related to possibility of altered mentation We'll see if he wakes up appropriate Continue supportive treatment I performed a history & physical examination of the patient and discussed their management with my nurse practitioner, Veronica Chiu. I reviewed the nurse practitioner's note and agree with the documented findings and plan of care. Lung sounds are positive for diminished breath sounds throughout the lung watson. The findings and the impression was discussed with the patient. I attest to the documentation by the nurse practitioner. Time with Patient: Greater than 30
[2021-05-21] MEDS: DEXTROSE 5% IN WATER 1,000 ML IV SCH (17:00)
[2021-05-21] MEDS: HYDROCORTISONE SUCCINATE 100 MG/2 ML VIAL IV SCH ×2 (18:08→23:32)
[2021-05-21] MEDS: ATORVASTATIN 20 MG TAB PO SCH (20:31)
--- NOTE | 2021-05-21 21:23 | P.PN ---
Subjective Progress Note Date: 05/21/21 Principal diagnosis: COVID-19 pneumonia Interval history: Patient is a 70-year-old male presented to the hospital with acute respiratory failure in this but have a evidence of multifocal pneumonia secondary to COVID-19. Patient did have worsening of his respiratory status requiring intubation on 05/19/2021 On today's evaluation that is 05/21/2021 patientThe patient did have low-grade fever 100.4 F today, patient is hemodynamically stable per the nursing staff, FiO2 is currently at 40%, no significant purulent secretion through the ET or diarrhea reported by the nursing staff Objective - Vital Signs Vital signs: Vital Signs Temp 100.2 F H 05/21/21 20:00 Pulse 80 05/21/21 20:30 Resp 36 H 05/21/21 20:30 BP 125/74 05/21/21 07:00 Pulse Ox 98 05/21/21 20:30 Intake & Output 05/21/21 05/21/21 05/22/21 06:59 18:59 06:59 Intake Total 4513.260 1344.512 236.358 Output Total 1300 1000 275 Balance 140.211 152.512 -38.642 Weight 64.4 kg Intake: IV 1060 900 170 Dextrose 10% in Water 500 350 70 ml In Empty Bag 1 bag @ 70 mls/hr IV .Q7H9M [facility] Rx#:[id number] Dextrose 5%-0.9% NaCl 1, 490 900 000 ml @ 100 mls/hr IV . Q10H [facility] Rx#:[id number] Piperacillin-Tazobactam 3 100 .375 gm In Sodium Chloride 0.9% 100 ml @ 25 mls/hr IVPB Q8HR [facility] Rx# :[id number] Sodium Chloride 0.9% 1, 120 000 ml @ 999 mls/hr IV . Q1H1M [facility] Rx#:[id number] Valproate Sodium 250 mg 100 In Sodium Chloride 0.9% 100 ml @ 100 mls/hr IVPB Q6HR@0300,0900,1500,2100 [facility] Rx#:[id number] Intake, IV Titration 260.211 252.512 16.358 Amount Norepinephrine 4 mg In 60.211 64.478 Sodium Chloride 0.9% 250 ml @ 0.05 MCG/KG/MIN 11. 838 mls/hr IV .[id number] [facility] Rx#:[id number] propofoL 1,000 mg In 200 188.034 16.358 Empty Bag 1 bag @ Titrate IV .Q0M [facility] Rx#: [id number] Tube Feeding 120 20 Other 30 Output: Urine 1300 1000 275 Other: Voiding Method Indwelling Catheter Indwelling Catheter Indwelling Catheter ABP, PAP, CO, CI - Last Documented Arterial Blood Pressure 128/58 - Exam General description is an elderly male intubated on the vent Respiratory system:Unlabored breathing, decreased intensity in breath sounds. No wheeze. Heart S1, S2. Regular rate and rhythm. Abdomen soft, no tenderness. Extremities: No edema feet - Labs CBC & Chem 7: 05/21/21 03:45 05/21/21 12:47 Labs: Abnormal Lab Results - Last 24 Hours (Table) 05/20/21 05/21/21 05/21/21 Range/Units 23:59 03:45 03:45 RBC 3.23 L (4.30-5.90) m/uL Hgb 10.4 L (13.0-17.5) gm/dL Hct 32.0 L (39.0-53.0) % Plt Count 136 L (150-450) k/uL Lymphocytes # 0.6 L (1.0-4.8) k/uL ABG pO2 (83-108) mmHg ABG Total CO2 (19-24) mmol/L Sodium 149 H (137-145) mmol/L Chloride 121 H (98-107) mmol/L BUN 40 H (9-20) mg/dL Creatinine 1.58 H (0.66-1.25) mg/dL Glucose 162 H (74-99) mg/dL POC Glucose (mg/dL) 197 H (75-99) mg/dL Calcium 8.3 L (8.4-10.2) mg/dL AST 12 L (17-59) U/L C-Reactive Protein 8.9 H (<1.0) mg/dL Total Protein 4.8 L (6.3-8.2) g/dL Albumin 2.2 L (3.5-5.0) g/dL 05/21/21 05/21/21 05/21/21 Range/Units 05:49 06:05 11:34 RBC (4.30-5.90) m/uL Hgb (13.0-17.5) gm/dL Hct (39.0-53.0) % Plt Count (150-450) k/uL Lymphocytes # (1.0-4.8) k/uL ABG pO2 71 L (83-108) mmHg ABG Total CO2 27 H (19-24) mmol/L Sodium (137-145) mmol/L Chloride (98-107) mmol/L BUN (9-20) mg/dL Creatinine (0.66-1.25) mg/dL Glucose (74-99) mg/dL POC Glucose (mg/dL) 183 H 160 H (75-99) mg/dL Calcium (8.4-10.2) mg/dL AST (17-59) U/L C-Reactive Protein (<1.0) mg/dL Total Protein (6.3-8.2) g/dL Albumin (3.5-5.0) g/dL 05/21/21 Range/Units 12:47 RBC (4.30-5.90) m/uL Hgb (13.0-17.5) gm/dL Hct (39.0-53.0) % Plt Count (150-450) k/uL Lymphocytes # (1.0-4.8) k/uL ABG pO2 (83-108) mmHg ABG Total CO2 (19-24) mmol/L Sodium 151 H (137-145) mmol/L Chloride 123 H (98-107) mmol/L BUN 36 H (9-20) mg/dL Creatinine 1.61 H (0.66-1.25) mg/dL Glucose 168 H (74-99) mg/dL POC Glucose (mg/dL) (75-99) mg/dL Calcium 8.2 L (8.4-10.2) mg/dL AST (17-59) U/L C-Reactive Protein (<1.0) mg/dL Total Protein (6.3-8.2) g/dL Albumin (3.5-5.0) g/dL Microbiology - Last 24 Hours (Table) 05/19/21 18:56 Blood Culture - Preliminary Blood No Growth after 48 hours 05/19/21 18:56 Blood Culture - Preliminary Blood No Growth after 48 hours 05/19/21 Unknown Gram Stain - Preliminary Sputum Sputum Culture - Preliminary Yeast species 05/17/21 22:00 Blood Culture - Preliminary Blood No Growth after 72 hours Assessment and Plan Assessment: Patient with acute respiratory failure which is multifactorial in this patient with initial diagnosis of COVID-19 pneumonia in this patient did have significant worsening of his respiratory status requiring intubation, patient is currently covered with a dexamethasone Lovenox zinc and ascorbic acid along with empiric Zosyn, blood and sputum cultures Has been negative for any resistant pathogens So far and the patient white count is normal
[2021-05-21 22:14] LABS: Calcium 8.2 mg/dL (8.4-10.2); Potassium 4.1 mmol/L (3.5-5.1)
[2021-05-22] MEDS: DEXTROSE 5% IN WATER 1,000 ML IV SCH ×2 (02:51→15:00)
[2021-05-22] MEDS: VALPROATE SODIUM 250 MG in SODIUM CHLORIDE 0.9% 100 ML IVPB SCH ×4 (02:53→21:12)
[2021-05-22 04:34] LABS: Basophils % (A) 0 %; Eosinophils % (A) 0 %; HCT 30.4 % (39.0-53.0); HGB 9.6 gm/dL (13.0-17.5); Hypochromasia Moderate; Lymphocytes # (A) 0.2 k/uL (1.0-4.8); Lymphocytes % (A) 4 %; MCH 31.7 pg (25.0-35.0); MCHC 31.4 g/dL (31.0-37.0); MCV 100.8 fL (80.0-100.0); Macrocytosis Slight; Mean Platelet Volume 9.4; Monocytes # (A) 0.1 k/uL (0-1.0); Monocytes % (A) 2 %; Neutrophils # (A) 5.6 k/uL (1.3-7.7); Neutrophils % (A) 94 %; RBC 3.02 m/uL (4.30-5.90); RDW 15.6 % (11.5-15.5)
[2021-05-22 05:00] LABS: Platelet Count 98 k/uL (150-450)
--- NOTE | 2021-05-22 05:11 | P.PN ---
Subjective Progress Note Date: 05/21/21 This is a 70-year-old male who was recently admitted with change in mental status and fall and also shortness of breath and acute COVID-19 pneumonia and being closely monitored. Patient was continued on high flow oxygen although respiratory status continued to deteriorate and an A team was called. Patient was brought to the ICU for close monitoring and x-ray showed some bilateral lower lobe pneumonia which appears unchanged compared to recent exam with no obvious heart failure. Patient was placed on mechanical vent and intubated and sedated and is being closely monitored. Multiple medical consultations including pulmonary and infectious disease following closely. 05/20/2021 Patient is seen in follow-up activity is to be closely monitored in the ICU. Blood pressure and heart rate has been extremely variable and patient is maintained on D10 in water along with norepinephrine and will continue. Pulmonary and infectious disease following closely. Patient continues with worsening kidney functions nephrology consulted and patient is being given a liter bolus for hypotension and repeat sodium level ordered. Patient also continues on Zosyn and ID following closely. Patient continues with low blood sugar readings as well and we'll continue D10 and close glucose monitoring. Chest x-ray shows some improvement in bibasilar infiltrates more so on the right and possibly developing small right pleural effusion. 05/21/2021 Patient is seen and evaluated this morning continues to be in the ICU with multiple medical consultations following. Patient is continued on IV antibiotics with ID following. Cultures continue to be negative and WBC is 8.5. Patient did have low grade temp today. Patient continues on mechanical vent and sedated. Chest xray similar to previous exam and will continue to monitor. Prognosis remains guarded. Patient also continued on norepinephrine. Review of systems: Unable to obtain as patient is mechanically intubated and sedated Labs: WBC is 8.5, hemoglobin is 10.4, platelets are 136, sodium is 149, potassium is 4.0, BUN is 40, creatinine is 1.58, CRP is 8.9 Active Medications Acetaminophen (Acetaminophen Tab 325 Mg Tab) 650 mg PO Q6HR PRN PRN Reason: Mild Pain or Fever > 100.5 Last Admin: 05/18/21 23:16 Dose: 650 mg Documented by: Albuterol Sulfate (Albuterol Hfa Inhaler) 2 puff INHALATION RT-QID [facility] Last Admin: 05/21/21 15:24 Dose: 2 puff Documented by: Atorvastatin Calcium (Atorvastatin 20 Mg Tab) 20 mg PO HS [facility] Last Admin: 05/20/21 20:10 Dose: 20 mg Documented by: Chlorhexidine Gluconate (Chlorhexidine Gluconate 15 Ml Cup) 15 ml MUCOUS MEM BID [facility] Last Admin: 05/21/21 08:06 Dose: 15 ml Documented by: Clopidogrel Bisulfate (Clopidogrel 75 Mg Tab) 75 mg PO DAILY [facility] Last Admin: 05/21/21 08:06 Dose: 75 mg Documented by: Divalproex Sodium (Divalproex Er 500 Mg Tab.Er.24h) 500 mg PO BID [facility] Last Admin: 05/19/21 09:52 Dose: Not Given Documented by: Enoxaparin Sodium (Enoxaparin 30 Mg/0.3 Ml Syringe) 30 mg SQ DAILY [facility] Last Admin: 05/21/21 08:06 Dose: 30 mg Documented by: Ferrous Sulfate (Ferrous Sulfate 325 Mg Tab) 325 mg PO DAILY [facility] Last Admin: 05/21/21 08:06 Dose: 325 mg Documented by: Folic Acid (Folic Acid 1 Mg Tab) 1 mg PO DAILY [facility] Last Admin: 05/21/21 08:06 Dose: 1 mg Documented by: Hydrocortisone Sodium Succinate (Hydrocortisone Succinate 100 Mg/2 Ml Vial) 100 mg IV Q8HR [facility] Piperacillin Sod/Tazobactam (Sod 3.375 gm/ Sodium Chloride) 100 mls @ 25 mls/hr IVPB Q8HR [facility] Last Admin: 05/21/21 08:05 Dose: 25 mls/hr Documented by: Norepinephrine Bitartrate 4 mg (/ Sodium Chloride) 254 mls @ 11.838 mls/hr IV .[id number] [facility]; Protocol Last Admin: 05/21/21 10:28 Dose: 0.08 mcg/kg/min, 18.941 mls/hr Documented by: Propofol 1,000 mg/ IV Solution 100 mls @ 0 mls/hr IV .Q0M [facility]; Protocol Last Admin: 05/21/21 10:28 Dose: 50 mcg/kg/min, 19.5 mls/hr Documented by: Valproic Acid 250 mg/ Sodium (Chloride) 102.5 mls @ 100 mls/hr IVPB Q6 HR@0300,0900,1500,2100 [facility] Last Admin: 05/21/21 08:05 Dose: 100 mls/hr Documented by: Dextrose/Sodium Chloride (Dextrose 5%-Ns Iv Soln) 1,000 mls @ 100 mls/hr IV .Q10H [facility] Last Admin: 05/21/21 13:28 Dose: 100 mls/hr Documented by: Physical Exam: Gen: this is a 70-year-old male currently sedated and intubated. Temp is 100.5F, pulse is 96, respirations are 45, arterial blood pressure is 99/53, oxygen saturation is 96% on 40% mechanical ventilation with a PEEP of 5 HEENT: Head is atraumatic, normocephalic. Pupils equal, round. Sclerae is anicteric. NECK: Supple. No JVD. No lymphadenopathy. No thyromegaly. LUNGS: Diminished breath sounds bilaterally with coarse rhonchi and crackles noted. No intercostal retractions. HEART: S1, S2 are muffled ABDOMEN: Soft. Bowel sounds are present. No masses. No tenderness. EXTREMITIES: No pedal edema. No calf tenderness. NEUROLOGICAL: Patient is currently intubated and sedated Assessment: Acute COVID-19 infection with acute COVID-19 bilateral interstitial pneumonia, right more than left with acute hypoxic respiratory failure, now requiring mechanical ventilation Acute kidney injury secondary to acute tubular necrosis from septic shock Chronic kidney disease stage III a secondary to nephrosclerosis Hypoglycemia Change in mental status, metabolic encephalopathy, multifactorial Falling gait dysfunction Anemia, normocytic anemia of undetermined significance Hypernatremia from poor oral intake Hyperkalemia secondary to acute kidney injury Elevated d-dimer acute renal failure with dehydration history of coronary artery disease history of chronic obstructive pulmonary disease Gastroesophageal reflux disease history of bipolar, schizoaffective disorder and schizophrenia History of nicotine dependence Severe protein calorie malnutrition with a BMI of 19.1 Full code Plan: Recommend to continue with current medications and follow along closely with multiple medical consultations. Prognosis remains guarded with multiple complex medical issues noted. Patient continues on mechanical ventilation with an FiO2 of 40% and PEEP is 5. Recommend continue with current medications and patient has been maintained on IV antibiotics with infectious disease following.. Chest x-ray reviewed as mentioned above. Recommend repeat labs in the morning. Nephrology following and sodium level improving. Again due to multiple complex medical issues prognosis is quite guarded. Objective - Vital Signs Vital signs: Vital Signs Temp 96.4 F L 05/21/21 04:00 Pulse 101 H 05/21/21 07:00 Resp 39 H 05/21/21 07:00 BP 125/74 05/21/21 07:00 Pulse Ox 96 05/21/21 07:00 Intake & Output 05/20/21 05/21/21 05/21/21 18:59 06:59 18:59 Intake Total 8839.901 9302.211 Output Total 1040 1300 Balance 419.689 140.211 Weight 65 kg 64.4 kg Intake: IV 920 1060 Dextrose 10% in Water 500 920 350 ml In Empty Bag 1 bag @ 70 mls/hr IV .Q7H9M [facility] Rx#:[id number] Dextrose 5%-0.9% NaCl 1, 490 000 ml @ 100 mls/hr IV . Q10H [facility] Rx#:[id number] Piperacillin-Tazobactam 3 100 .375 gm In Sodium Chloride 0.9% 100 ml @ 25 mls/hr IVPB Q8HR [facility] Rx# :[id number] Sodium Chloride 0.9% 1, 120 000 ml @ 999 mls/hr IV . Q1H1M [facility] Rx#:[id number] Intake, IV Titration 539.689 260.211 Amount Norepinephrine 4 mg In 383.039 60.211 Sodium Chloride 0.9% 250 ml @ 0.05 MCG/KG/MIN 11. 838 mls/hr IV .[id number] [facility] Rx#:[id number] propofoL 1,000 mg In 156.650 200 Empty Bag 1 bag @ Titrate IV .Q0M [facility] Rx#: [id number] Tube Feeding 120 Output: Urine 1040 1300 Other: Voiding Method Indwelling Catheter Indwelling Catheter ABP, PAP, CO, CI - Last Documented Arterial Blood Pressure 98/55 - Labs CBC & Chem 7: 05/22/21 04:30 05/21/21 21:15 Labs: Abnormal Lab Results - Last 24 Hours (Table) 05/20/21 05/20/21 05/20/21 Range/Units 10:20 10:30 13:46 RBC (4.30-5.90) m/uL Hgb (13.0-17.5) gm/dL Hct (39.0-53.0) % Plt Count (150-450) k/uL Lymphocytes # (1.0-4.8) k/uL ABG pO2 157 H (83-108) mmHg ABG Total CO2 25 H (19-24) mmol/L ABG O2 Saturation 99.9 H (94-97) % Sodium 148 H (137-145) mmol/L Chloride 121 H (98-107) mmol/L BUN 49 H (9-20) mg/dL Creatinine 1.93 H (0.66-1.25) mg/dL Glucose 113 H (74-99) mg/dL POC Glucose (mg/dL) 103 H (75-99) mg/dL Calcium 7.8 L (8.4-10.2) mg/dL AST (17-59) U/L C-Reactive Protein (<1.0) mg/dL Total Protein (6.3-8.2) g/dL Albumin (3.5-5.0) g/dL 05/20/21 05/20/21 05/20/21 Range/Units 16:18 16:19 23:59 RBC (4.30-5.90) m/uL Hgb (13.0-17.5) gm/dL Hct (39.0-53.0) % Plt Count (150-450) k/uL Lymphocytes # (1.0-4.8) k/uL ABG pO2 (83-108) mmHg ABG Total CO2 (19-24) mmol/L ABG O2 Saturation (94-97) % Sodium 148 H (137-145) mmol/L Chloride 121 H (98-107) mmol/L BUN 47 H (9-20) mg/dL Creatinine 1.82 H (0.66-1.25) mg/dL Glucose 177 H (74-99) mg/dL POC Glucose (mg/dL) 169 H 197 H (75-99) mg/dL Calcium 8.0 L (8.4-10.2) mg/dL AST (17-59) U/L C-Reactive Protein (<1.0) mg/dL Total Protein (6.3-8.2) g/dL Albumin (3.5-5.0) g/dL 05/21/21 05/21/21 05/21/21 Range/Units 03:45 03:45 05:49 RBC 3.23 L (4.30-5.90) m/uL Hgb 10.4 L (13.0-17.5) gm/dL Hct 32.0 L (39.0-53.0) % Plt Count 136 L (150-450) k/uL Lymphocytes # 0.6 L (1.0-4.8) k/uL ABG pO2 71 L (83-108) mmHg ABG Total CO2 27 H (19-24) mmol/L ABG O2 Saturation (94-97) % Sodium 149 H (137-145) mmol/L Chloride 121 H (98-107) mmol/L BUN 40 H (9-20) mg/dL Creatinine 1.58 H (0.66-1.25) mg/dL Glucose 162 H (74-99) mg/dL POC Glucose (mg/dL) (75-99) mg/dL Calcium 8.3 L (8.4-10.2) mg/dL AST 12 L (17-59) U/L C-Reactive Protein 8.9 H (<1.0) mg/dL Total Protein 4.8 L (6.3-8.2) g/dL Albumin 2.2 L (3.5-5.0) g/dL 05/21/21 Range/Units 06:05 RBC (4.30-5.90) m/uL Hgb (13.0-17.5) gm/dL Hct (39.0-53.0) % Plt Count (150-450) k/uL Lymphocytes # (1.0-4.8) k/uL ABG pO2 (83-108) mmHg ABG Total CO2 (19-24) mmol/L ABG O2 Saturation (94-97) % Sodium (137-145) mmol/L Chloride (98-107) mmol/L BUN (9-20) mg/dL Creatinine (0.66-1.25) mg/dL Glucose (74-99) mg/dL POC Glucose (mg/dL) 183 H (75-99) mg/dL Calcium (8.4-10.2) mg/dL AST (17-59) U/L C-Reactive Protein (<1.0) mg/dL Total Protein (6.3-8.2) g/dL Albumin (3.5-5.0) g/dL Microbiology - Last 24 Hours (Table) 05/17/21 22:00 Blood Culture - Preliminary Blood No Growth after 72 hours 05/19/21 18:56 Blood Culture - Preliminary Blood No Growth after 24 hours 05/19/21 18:56 Blood Culture - Preliminary Blood No Growth after 24 hours 05/19/21 Unknown Gram Stain - Preliminary Sputum Sputum Culture - Preliminary
[2021-05-22 05:31] LABS: Albumin 2.1 g/dL (3.5-5.0); C Reactive Protein 5.2 mg/dL (<1.0); Total Bilirubin 0.4 mg/dL (0.2-1.3); Total Protein 4.7 g/dL (6.3-8.2)
[2021-05-22 05:34] LABS: ABG Base Excess -0.2 mmol/L; ABG HCO3 25 mmol/L (21-25); ABG Oxygen Saturation 98.9 % (94-97); ABG PCO2 40 mmHg (35-45); ABG PO2 112 mmHg (83-108); ABG TCO2 26 mmol/L (19-24); Allen Test Performed? Yes
--- NOTE | 2021-05-22 07:13 | XR ---
EXAMINATION TYPE: XR chest 1V portable DATE OF EXAM: 05/22/2021 CLINICAL HISTORY: Difficulty breathing and covid progress study. TECHNIQUE: Single AP portable semiupright view of the chest is obtained. COMPARISON: Chest x-ray from one day earlier and older studies FINDINGS: Stable endotracheal tube and orogastric tubes. Stable Right internal jugular central venou s. Background chronic emphysematous change with persistent bilateral multifocal increased opacities grea test in the periphery and bibasilar regions is redemonstrated. Cardiac silhouette size is stable and within normal limits with atherosclerotic change aortic knob redemonstrated. Osseous structures remai n demineralized. Underlying scoliosis is present. IMPRESSION: Chronic emphysematous and pulmonary fibrotic changes with moderate bilateral pleural effu sions and bilateral multifocal increased opacities and consistent with covid-19 infection are redemon strated. No significant change from one day earlier.
[2021-05-22] MEDS: ALBUTEROL HFA INHALER INHALATION SCH ×4 (07:28→20:14)
--- NOTE | 2021-05-22 09:20 | P.PN ---
Subjective Patient is seen in follow-up for acute kidney injury on chronic kidney disease. Renal function stable. Sodium 148. Nonoliguric. Receiving tube feeds. Off Levophed. Intubated. Vital signs are stable. HEENT: Intubated. LUNGS: Breath sounds decreased. HEART: Rate and Rhythm are regular. ABDOMEN: No distention. EXTREMITITES: No edema. Objective - Vital Signs Vital signs: Vital Signs Temp 99.7 F H 05/22/21 04:00 Pulse 78 05/22/21 07:00 Resp 29 H 05/22/21 07:00 BP 125/74 05/22/21 07:00 Pulse Ox 99 05/22/21 07:00 Intake & Output 05/21/21 05/22/21 05/22/21 18:59 06:59 18:59 Intake Total 7531.213 5830.524 Output Total 1000 1145 Balance 152.512 546.524 Intake: IV 900 940 Dextrose 10% in Water 500 840 ml In Empty Bag 1 bag @ 70 mls/hr IV .Q7H9M [facility] Rx#:[id number] Dextrose 5%-0.9% NaCl 1, 900 000 ml @ 100 mls/hr IV . Q10H [facility] Rx#:[id number] Valproate Sodium 250 mg 100 In Sodium Chloride 0.9% 100 ml @ 100 mls/hr IVPB Q6HR@0300,0900,1500,2100 [facility] Rx#:[id number] Intake, IV Titration 252.512 344.524 Amount Norepinephrine 4 mg In 64.478 258.743 Sodium Chloride 0.9% 250 ml @ 0.05 MCG/KG/MIN 11. 838 mls/hr IV .[id number] [facility] Rx#:[id number] propofoL 1,000 mg In 188.034 85.781 Empty Bag 1 bag @ Titrate IV .Q0M [facility] Rx#: [id number] Tube Feeding 317 Other 90 Output: Urine 1000 1145 Other: Voiding Method Indwelling Catheter Indwelling Catheter ABP, PAP, CO, CI - Last Documented Arterial Blood Pressure 120/57 - Labs CBC & Chem 7: 05/22/21 04:30 05/22/21 04:30 Labs: Abnormal Lab Results - Last 24 Hours (Table) 05/21/21 05/21/21 05/21/21 Range/Units 11:34 12:47 21:15 RBC (4.30-5.90) m/uL Hgb (13.0-17.5) gm/dL Hct (39.0-53.0) % MCV (80.0-100.0) fL RDW (11.5-15.5) % Plt Count (150-450) k/uL Lymphocytes # (1.0-4.8) k/uL ABG pO2 (83-108) mmHg ABG Total CO2 (19-24) mmol/L ABG O2 Saturation (94-97) % Sodium 151 H 152 H (137-145) mmol/L Chloride 123 H 123 H (98-107) mmol/L BUN 36 H 34 H (9-20) mg/dL Creatinine 1.61 H 1.58 H (0.66-1.25) mg/dL Glucose 168 H 151 H (74-99) mg/dL POC Glucose (mg/dL) 160 H (75-99) mg/dL Calcium 8.2 L 8.2 L (8.4-10.2) mg/dL AST (17-59) U/L C-Reactive Protein (<1.0) mg/dL Total Protein (6.3-8.2) g/dL Albumin (3.5-5.0) g/dL 05/22/21 05/22/21 05/22/21 Range/Units 04:30 04:30 05:31 RBC 3.02 L (4.30-5.90) m/uL Hgb 9.6 L (13.0-17.5) gm/dL Hct 30.4 L (39.0-53.0) % MCV 100.8 H (80.0-100.0) fL RDW 15.6 H (11.5-15.5) % Plt Count 98 L (150-450) k/uL Lymphocytes # 0.2 L (1.0-4.8) k/uL ABG pO2 112 H (83-108) mmHg ABG Total CO2 26 H (19-24) mmol/L ABG O2 Saturation 98.9 H (94-97) % Sodium 148 H (137-145) mmol/L Chloride 122 H (98-107) mmol/L BUN 36 H (9-20) mg/dL Creatinine 1.55 H (0.66-1.25) mg/dL Glucose 199 H (74-99) mg/dL POC Glucose (mg/dL) (75-99) mg/dL Calcium 8.0 L (8.4-10.2) mg/dL AST 13 L (17-59) U/L C-Reactive Protein 5.2 H (<1.0) mg/dL Total Protein 4.7 L (6.3-8.2) g/dL Albumin 2.1 L (3.5-5.0) g/dL Microbiology - Last 24 Hours (Table) 05/17/21 22:00 Blood Culture - Preliminary Blood No Growth after 96 hours 05/19/21 18:56 Blood Culture - Preliminary Blood No Growth after 48 hours 05/19/21 18:56 Blood Culture - Preliminary Blood No Growth after 48 hours 05/19/21 Unknown Gram Stain - Preliminary Sputum Sputum Culture - Preliminary Yeast species Assessment and Plan Plan: Assessment: 1. Acute kidney injury secondary to ATN secondary to septic shock. Creatinine peaked at 2.07 this admission - 1.55 today. Nonoliguric. 2. Chronic kidney disease stage IIIa with baseline creatinine in the range of 1.2-1.4 secondary to nephrosclerosis. 3. Hypernatremia from the lack of oral water intake. Improving. 4. Septic shock secondary to COVID-19 pneumonia. Also concern for aspiration pneumonia. 5. Hyperkalemia secondary to acute kidney injury. Improved with medical management. 6. Hypoglycemia s/p D10. Resolved. Plan: Maintain D5W at 100 mL an hour. Repeat sodium level this evening. Wean FiO2. Avoid nephrotoxins. Continue to monitor renal function and urine output.
[2021-05-22] MEDS: HYDROCORTISONE SUCCINATE 100 MG/2 ML VIAL IV SCH ×2 (10:14→17:19)
[2021-05-22] MEDS: PIPERACILLIN-TAZOBACTAM 3.375 GM in SODIUM CHLORIDE 0.9% 100 ML IVPB SCH ×2 (10:21→17:18)
[2021-05-22] MEDS: PANTOPRAZOLE 40 MG/10 ML VIAL IVP SCH (10:22)
[2021-05-22] MEDS: CHLORHEXIDINE GLUCONATE 15 ML CUP MUCOUS MEM SCH ×2 (10:22→20:40)
[2021-05-22] MEDS: FOLIC ACID 1 MG TAB PO SCH (10:23)
[2021-05-22] MEDS: CLOPIDOGREL 75 MG TAB PO SCH (10:23)
[2021-05-22] MEDS: FERROUS SULFATE 325 MG TAB PO SCH (10:23)
[2021-05-22] MEDS: ENOXAPARIN 40 MG/0.4 ML SYRINGE SQ SCH (10:29)
[2021-05-22 11:56] LABS: Glucose,Whole Blood 142 mg/dL (75-99)
[2021-05-22 13:10] LABS: ABG Base Excess 0.8 mmol/L; ABG HCO3 26 mmol/L (21-25); ABG Oxygen Saturation 97.8 % (94-97); ABG PCO2 42 mmHg (35-45); ABG PO2 91 mmHg (83-108); ABG TCO2 27 mmol/L (19-24)
--- NOTE | 2021-05-22 13:36 | P.PN ---
Subjective Progress Note Date: 05/22/21 Principal diagnosis: Acute COVID-19 pneumonia This is a 70-year-old male patient, brought into the emergency department by a caregiver. The patient is unable to volunteer any history. He has issues with dementia and mental health. In fact he is unable to communicate. He is currently in the hospital for COVID pneumonia. The patient initially went to [place] where he was seen in the [facility] for COVID 19 infection. He was discharged home. This is approximately 4 days ago. Following that, the caregiver sent the patient to our hospital as the patient's condition was getting worse and apparently continued to have worsening mentation. The patient was unable to communicate time of his admission. He was mumbling and unable to make full sentences or other words. He was restless in bed. At times agitated. At times screaming. He was quite uncooperative during the evaluation. No history of any head trauma. The patient apparently had a fall and he sustained a trauma to his neck area following the fall. This occurred at home in a bathtub. In the emergency department, the patient was found to be hypoxic with a pulse ox of 80% and the patient required oxygen. The patient is currently on oxygen at 10 L high flow. Initial CAT scan of the brain and the CAT scan of the C-spine showed no acute process. The patient was given 10 mg of Decadron in the emergency department regarding his COVID 19 pneumonia. Chest x-ray showed bilateral lower lobe airspace disease. Note that the pulmonary infiltrates were worse on the right compared to the leftand the infiltrate was rather asymmetric, which obviously raises concerns for an underlying pneumonia, aspiration and the patient was given a dose of Rocephin and Zithromax in the emergency department. His white cell count is at 6.4 with a hemoglobin of 12 and a platelet count of 130. Sodium was 155 this morning with a potassium level of 6.1, BUN is at 50 with a creatinine of 1.5, LFTs are normal, lactic acid level was at 1.9, pro calcitonin level is at 0.16, d-dimer is at 0.8 and the rest of the coagulation profile is within normal limits. The patient is currently on IV Decadron. On 05/19/2021 patient seen in follow-up in the intensive care unit, overnight his condition continued to deteriorate, and early this morning at 4:00 on 05/19/2021 patient had rapid response team called to the bedside for concern of worsening shortness of breath, and worsening hypoxia, patient was confused and in respiratory distress, he is not answering any questions, on 10 L of oxygen his pulse ox was 94%, however his mental status was significantly altered, patient was transferred to the intensive care unit for high likelihood of intubation, this morning she was intubated and placed on mechanical ventilator, with assist-control mode of ventilation with a rate of 30, tidal on was 300, FiO2 100% and PEEP of 5. Early in the morning his blood gases showed pO2 of 82, pCO2 of 80, and pH of 7.18, this was done and FiO2 of 70%. Post intubation blood gas showed a pO2 of 81, pCO2 of 63, and pH of 7.24, this was done and FiO2 of 50%. Patient was hypotensive following intubation, he was given 2 L of fluid boluses, and his maintenance IV fluid is D5W at 50 ML per hour which will be switched to normal saline, he is on norepinephrine at 0.14 mics per kilo per minute, Diprivan infusion at 50 mics per kilo per minute. He remains on prophylactic Lovenox 40 mg daily, and Decadron 6 mg daily. He remains on his home medications including Lipitor, Plavix, Depakote, iron supplementation, his antipsychotics, midodrine which patient have not been able to take related to his altered mental status. Patient was also suspected to be aspirating, and he was placed on Zosyn for empiric antibiotic coverage. Today's labs have been reviewed, his white blood cell count is 7.1, hemoglobin of 12.7, sodium is 153 and patient has been on D5W at a rate of 100 ML per hour, his oral intake has been extremely poor, potassium is 5.8, chloride is 124, BUN of 69, creatinine is 1.97. Patient's extremely cachectic, and frail. This morning patient had to be intubated and placed on mechanical ventilator, we will initiate tube feedings today, consult registered dietitian for tube feeding recommendation, patient will be fluid bolused, and stabilized hemodynamically. On 05/20/2021 patient seen in follow-up in intensive care unit. Yesterday he was intubated and placed on mechanical ventilator in view of worsening hypoxia and dyspnea. Today he remains sedated, and intubated on assist control mode of ventilation with a rate of 30, tidal volume is 325, FiO2 of 50% and PEEP of 10, this morning blood gases shows pO2 of 95, pCO2 of 70, and pH of 7.18. This was done on the above mentioned ventilator settings, today's chest x-ray shows some improvement of bibasilar infiltrates more so on the right, and possibility of developing small right pleural effusion. Patient is currently on a vasopressor support in the form of norepinephrine is 0.38 mics per kilo per minute which is about 24.7 mics per minute, he is on Diprivan at 50 mics per kilo per minute, and overnight he had episode of hypoglycemia and patient was placed on 10% dextrose at a rate of 100 ML per hour, patient was extremely dehydrated prior to his intubation, his had very poor oral intake. He was given 2 L fluid bolus yesterday, however still requiring vasopressor support, and case was discussed with nephrology who agreed that patient is still extremely intravascular volume depleted, and is recommending another 1 or 2 L fluid bolus today. Today's labs have been reviewed and his white blood cell count is 14.6, hemoglobin is 12.1, platelet count is 223, sodium is 148, potassium is 4.7, chloride is 121, CO2 is 23, BUN of 49 creatinine is 1.93, his LDH is 560, within normal limits, and CRP is 7.2, improving, his last proBNP from a couple days ago was 5790 however patient seems to be extremely dehydrated. His pro calcitonin levels were negative 2 at 0.16, and 0.12 however his chest x-ray findings suggest possibility of aspiration pneumonia, and patient was placed on Zosyn for possibility of aspiration. Sputum culture has been sent and pending, preliminary Gram stain showing few PMNs, rare budding yeast, final culture is pending, blood cultures are negative thus far. On 05/21/2021 patient seen in follow-up in intensive care unit, patient remains sedated, and intubated on assist control mode of ventilation with a rate of 36, tidal volume was 375, FiO2 of 40% and 5. The blood count shows pO2 of 71, pCO2 of 41, pH is 7.40, today's chest x-ray has been reviewed showing bilateral airspace disease with interstitial changes and prominent lung volumes indicative of underlying COPD. Vital signs have been stable overnight, patient is on norepinephrine 0.1 mics per kilo per minute, Diprivan is present, and D5W at 100 ML per hour, and plan an 70-20 ML per hour, he is on tube feedings with Nepro at 20 ML per hour and 10 of water flushes, he is in sinus mechanism with a rate of 82 BPM, patient has had fevers overnight with a temp of 100.5F. He is covered with Zosyn. His blood cultures have been negative, his sputum culture showed yeast species, culture is pending. Today's labs have been reviewed and his white blood cell count is 8.5, hemoglobin is 10.4, his sodium is improved and is down to 149, in follow-up sodium level came back at 151, patient remains on free water at 100 ML per hour, nephrology is following. Potassium is 4.0, chloride is 121, BUN is 40, creatinine is improved and is down to 1.58, his cortisol level 7, and this was on IV Decadron 6 mg daily, and patient remains on prophylactic dose Lovenox, Zosyn, yesterday he received an additional liter bolus in IV fluids. His urine output is in the order of 100-125 ML per hour. Overall his oxygenation and ventilation have significantly improved, and patient is maintaining stable O2 saturations on FiO2 of 40% and PEEP of 5, his peak Pressure is only 18, his plateau is 13. On 05/22/2021 patient seen in follow-up in intensive care unit, he remains intubated on mechanical ventilator, currently assist control mode of ventilation with a rate at 36, tidal 375, FiO2 40% and PEEP of 5, this was blood gas shows pO2 of 112, pCO2 40, pH of 7.40 and this was done and the above-mentioned vent settings, today's chest x-ray has been reviewed showing chronic emphysematous pulmonary fibrotic changes with moderate bilateral pleural effusions and susan ateral multifocal increased opacities consistent with COVID-19 infection. No significant change compared the day before. Patient's sedation has been placed on hold this morning. Patient is waking up, becoming slightly restless, however he is not following commands yet. He is on D5W at rate of 100 ML per hour, norepinephrine drip has been weaned off, patient continues on hydrocortisone 100 mg every 8 hours for his serum cortisol level of 7, his TSH level was 0.923, within normal limits. He's tolerating tube feedings he is receiving Nepro at 27 per hour with a goal of 27 standard water flushes, vital signs have been stable, no fever overnight. He did have a low-grade fever early this morning with a temp of 99.7F. His blood cultures have been negative, his sputum culture showed Romelia species. Patient remains on Zosyn for antibiotic coverage, on prophylactic Lovenox 40 mg daily. The rest of patient's labs have been reviewed, his white blood cell count is 6.0, hemoglobin of 9.6, sodium is improving and is down to 148, potassium is 4.0, chloride is 122, BUN is 26, creatinine is improving and is down to 1.55. Objective - Vital Signs Vital signs: Vital Signs Temp 97.4 F L 05/22/21 12:00 Pulse 57 L 05/22/21 12:00 Resp 25 H 05/22/21 12:00 BP 125/74 05/22/21 07:00 Pulse Ox 97 05/22/21 12:00 Intake & Output 05/21/21 05/22/21 05/22/21 18:59 06:59 18:59 Intake Total 5131.281 1378.524 1022 Output Total 1000 1145 430 Balance 152.512 546.524 592 Weight 65.2 kg Intake: IV 900 940 800 Dextrose 10% in Water 500 840 ml In Empty Bag 1 bag @ 70 mls/hr IV .[id number] [facility] Rx#:[id number] Dextrose 5%-0.9% NaCl 1, 900 600 000 ml @ 100 mls/hr IV . Q10H [facility] Rx#:[id number] Piperacillin-Tazobactam 3 100 .375 gm In Sodium Chloride 0.9% 100 ml @ 25 mls/hr IVPB Q8HR [facility] Rx# :[id number] Valproate Sodium 250 mg 100 100 In Sodium Chloride 0.9% 100 ml @ 100 mls/hr IVPB Q6HR@0300,0900,1500,2100 [facility] Rx#:[id number] Intake, IV Titration 252.512 344.524 Amount Norepinephrine 4 mg In 64.478 258.743 Sodium Chloride 0.9% 250 ml @ 0.05 MCG/KG/MIN 11. 838 mls/hr IV .[id number] [facility] Rx#:[id number] propofoL 1,000 mg In 188.034 85.781 Empty Bag 1 bag @ Titrate IV .Q0M [facility] Rx#: [id number] Tube Feeding 317 162 Other 90 60 Output: Urine 1000 1145 430 Other: Voiding Method Indwelling Catheter Indwelling Catheter Indwelling Catheter ABP, PAP, CO, CI - Last Documented Arterial Blood Pressure 107/51 - Exam GENERAL EXAM: Extremely frail and cachectic 70-year-old white male, intubated, and off sedation currently, becoming a bit restless, but not following command on assist control mode of ventilation with a rate of 36, tidal on his 375, FiO2 40% and PEEP of 5, comfortable in no apparent distress. HEAD: Normocephalic/atraumatic. EYES: Normal reaction of pupils, equal size. Conjunctiva pink, sclera white. NOSE: Clear with pink turbinates. THROAT: No erythema or exudates. NECK: No masses, no JVD, no thyroid enlargement, no adenopathy. CHEST: No chest wall deformity. Symmetrical expansion. LUNGS: Equal air entry with diminished breath sounds and crackles CVS: Regular rate and rhythm, normal S1 and S2, no gallops, no murmurs, no rubs ABDOMEN: Soft, nontender. No hepatosplenomegaly, normal bowel sounds, no guarding or rigidity. EXTREMITIES: No clubbing, mild generalized swelling noted in upper and lower extremities no cyanosis, 2+ pulses and upper and lower extremities. MUSCULOSKELETAL: Muscle strength and tone normal. SPINE: No scoliosis or deformity SKIN: No rashes CENTRAL NERVOUS SYSTEM: Sedated, intubated No focal deficits, tone is normal in all 4 extremities. - Labs CBC & Chem 7: 05/22/21 04:30 05/22/21 04:30 Labs: Abnormal Lab Results - Last 24 Hours (Table) 05/21/21 05/21/21 05/22/21 Range/Units 12:47 21:15 04:30 RBC 3.02 L (4.30-5.90) m/uL Hgb 9.6 L (13.0-17.5) gm/dL Hct 30.4 L (39.0-53.0) % MCV 100.8 H (80.0-100.0) fL RDW 15.6 H (11.5-15.5) % Plt Count 98 L (150-450) k/uL Lymphocytes # 0.2 L (1.0-4.8) k/uL ABG pO2 (83-108) mmHg ABG HCO3 (21-25) mmol/L ABG Total CO2 (19-24) mmol/L ABG O2 Saturation (94-97) % Sodium 151 H 152 H (137-145) mmol/L Chloride 123 H 123 H (98-107) mmol/L BUN 36 H 34 H (9-20) mg/dL Creatinine 1.61 H 1.58 H (0.66-1.25) mg/dL Glucose 168 H 151 H (74-99) mg/dL POC Glucose (mg/dL) (75-99) mg/dL Calcium 8.2 L 8.2 L (8.4-10.2) mg/dL AST (17-59) U/L C-Reactive Protein (<1.0) mg/dL Total Protein (6.3-8.2) g/dL Albumin (3.5-5.0) g/dL 05/22/21 05/22/21 05/22/21 Range/Units 04:30 05:31 11:54 RBC (4.30-5.90) m/uL Hgb (13.0-17.5) gm/dL Hct (39.0-53.0) % MCV (80.0-100.0) fL RDW (11.5-15.5) % Plt Count (150-450) k/uL Lymphocytes # (1.0-4.8) k/uL ABG pO2 112 H (83-108) mmHg ABG HCO3 (21-25) mmol/L ABG Total CO2 26 H (19-24) mmol/L ABG O2 Saturation 98.9 H (94-97) % Sodium 148 H (137-145) mmol/L Chloride 122 H (98-107) mmol/L BUN 36 H (9-20) mg/dL Creatinine 1.55 H (0.66-1.25) mg/dL Glucose 199 H (74-99) mg/dL POC Glucose (mg/dL) 142 H (75-99) mg/dL Calcium 8.0 L (8.4-10.2) mg/dL AST 13 L (17-59) U/L C-Reactive Protein 5.2 H (<1.0) mg/dL Total Protein 4.7 L (6.3-8.2) g/dL Albumin 2.1 L (3.5-5.0) g/dL 05/22/21 Range/Units 13:08 RBC (4.30-5.90) m/uL Hgb (13.0-17.5) gm/dL Hct (39.0-53.0) % MCV (80.0-100.0) fL RDW (11.5-15.5) % Plt Count (150-450) k/uL Lymphocytes # (1.0-4.8) k/uL ABG pO2 (83-108) mmHg ABG HCO3 26 H (21-25) mmol/L ABG Total CO2 27 H (19-24) mmol/L ABG O2 Saturation 97.8 H (94-97) % Sodium (137-145) mmol/L Chloride (98-107) mmol/L BUN (9-20) mg/dL Creatinine (0.66-1.25) mg/dL Glucose (74-99) mg/dL POC Glucose (mg/dL) (75-99) mg/dL Calcium (8.4-10.2) mg/dL AST (17-59) U/L C-Reactive Protein (<1.0) mg/dL Total Protein (6.3-8.2) g/dL Albumin (3.5-5.0) g/dL Microbiology - Last 24 Hours (Table) 05/19/21 Unknown Gram Stain - Final Sputum Sputum Culture - Final Romelia sp,not albicans/galbr Romelia albicans 05/17/21 22:00 Blood Culture - Preliminary Blood No Growth after 96 hours 05/19/21 18:56 Blood Culture - Preliminary Blood No Growth after 48 hours 05/19/21 18:56 Blood Culture - Preliminary Blood No Growth after 48 hours Assessment and Plan Plan: Assessment: #1. Acute hypoxic respiratory failure related to acute COVID-19 pneumonia, and possibility of bacterial infection/aspiration related pneumonia is not entirely excluded. Patient was brought into the emergency department on 05/17/2021 per EMS, patient is a poor historian, reportedly has history of bipolar disease and dementia. Came in primarily for evaluation of altered mental status. Transferred from [place] emergency department for COVID-19 related pneumonia. The patient was taken to the hospital in [place] 4 days prior to this admission and the symptom onset was probably even prior to that. Exact onset of symptoms is not known. Patient was transferred to the intensive care unit on 05/19/2021 for worsening hypoxia, and hypercapnia, and altered mental status, and was intubated on 05/19/2021 on assist control mode of ventilation with a rate of 30, tidal on his 300, FiO2 50% and PEEP of 10. Today on 05/22/2021 patient is on assist-control with a rate of 36, tidal vital 375, FiO2 40% and PEEP of 5, oxygenation, ventilation are improved, we'll proceed with weaning trials #2. Acute hypercapnic respiratory failure, related to acute aspiration, and possible COVID-19 pneumonia, intubated #3. Hypotension, related to dehydration, and possibility of septic shock is not excluded. Patient remains on norepinephrine for vasopressor support, serum cortisol level was only 7, stressed of hydrocortisone started, and hypotension is currently resolved and patient is off vasopressor support #4. Altered mental status with worsening from baseline #5. History of dementia and schizoaffective disorder #6. Acute dehydration and hypernatremia, on the D5W at 100 ML per hour, improving #7. Chronic stage 3 kidney disease #8. COPD #9. History of coronary artery disease #10. GERD/reflux #11. Hyperlipidemia #12. Acute kidney injury related to ATN, and dehydration, patient continues on IV hydration and continues to receive fluid boluses #13. Hyperkalemia related to GU[place]PE, resolved #14. Hypoglcemia, was placed on D10 at 100 ml, will start tube feeds today. Blood sugars improved Plan: Today's blood gases, labs, CXR and labs reviewed Place the patient on IMV mode of ventilation, with a backup rate of 10, and pressure support of 14 and FiO2 of 40% Blood gases were obtained 2,5 hours after IMV mode, remain basically not significantly changed We'll drop the IMV rate down to 6, we'll continue on IMV mode Hemodynamically patient is much more stable, he is off vasopressor support Continue hydrocortisone 100 mg every 8 hours, Continue D5W at the same rate Continue to feedings Continue Zosyn Continue multivitamins Patient was taken off sedation however she still confused, not following commands Mental status is unknown, patient does have history of dementia and schizoaffective disorder Electrolytes are still showing elevated serum sodium level, which is improving We'll continue with D5W, continue with nutritional support We'll continue to follow his clinical status Follow-up chest x-ray, labs tomorrow Follow-up ABGs if it does not if not extubated this afternoon I performed a history & physical examination of the patient and discussed their management with my nurse practitioner, Veronica Chiu. I reviewed the nurse practitioner's note and agree with the documented findings and plan of care. Lung sounds are positive for diminished breath sounds throughout the lung watson. The findings and the impression was discussed with the patient. I attest to the documentation by the nurse practitioner. Time with Patient: Greater than 30
--- NOTE | 2021-05-22 14:47 | P.PN ---
Subjective Progress Note Date: 05/22/21 This is a 70-year-old male who was recently admitted with change in mental status and fall and also shortness of breath and acute COVID-19 pneumonia and being closely monitored. Patient was continued on high flow oxygen although respiratory status continued to deteriorate and an A team was called. Patient was brought to the ICU for close monitoring and x-ray showed some bilateral lower lobe pneumonia which appears unchanged compared to recent exam with no obvious heart failure. Patient was placed on mechanical vent and intubated and sedated and is being closely monitored. Multiple medical consultations including pulmonary and infectious disease following closely. 05/20/2021 Patient is seen in follow-up activity is to be closely monitored in the ICU. Blood pressure and heart rate has been extremely variable and patient is maintained on D10 in water along with norepinephrine and will continue. Pulmonary and infectious disease following closely. Patient continues with worsening kidney functions nephrology consulted and patient is being given a liter bolus for hypotension and repeat sodium level ordered. Patient also continues on Zosyn and ID following closely. Patient continues with low blood sugar readings as well and we'll continue D10 and close glucose monitoring. Chest x-ray shows some improvement in bibasilar infiltrates more so on the right and possibly developing small right pleural effusion. 05/21/2021 Patient is seen and evaluated this morning continues to be in the ICU with multiple medical consultations following. Patient is continued on IV antibiotics with ID following. Cultures continue to be negative and WBC is 8.5. Patient did have low grade temp today. Patient continues on mechanical vent and sedated. Chest xray similar to previous exam and will continue to monitor. Prognosis remains guarded. Patient also continued on norepinephrine. 05/22/2021 Patient is seen and evaluated today continues to be on mechanical vent with an FiO2 of 40% PEEP is 5. Patient continuing with weaning trials and assist mode on mechanical vent although patient continues to not follow commands per nursing staff. Per pulmonary road freight firer continued attempts at weaning. Chest x-ray shows chronic emphysematous changes and pulmonary fibrosis with moderate bilater al pleural effusions and bilateral multifocal increased opacification consistent with COVID-19 infection are all redemonstrated with no significant change from yesterday. Sputum culture finalized showing Romelia species not albicans, glabrata along with Romelia albicans and infectious disease is following. Patient continues on IV antibiotics in the form of Zosyn. Patient is currently off norepinephrine and receiving Solu-Cortef along with valproic acid and Depakote. Patient is continued on Lovenox for DVT prophylaxis. Patient also continues on D5 in water at 100 mL per hour. Blood gases are improving and pulmonary discussing possible extubation. Review of systems: Unable to obtain as patient is mechanically intubated and sedated Labs: WBC is 6.0, hemoglobin is 9.6, platelets are 98, sodium is 148, potassium 4.0, BUN 36, creatinine 1.55, calcium 8.0, LDH 414, CRP 5.2 Active Medications Acetaminophen (Acetaminophen Tab 325 Mg Tab) 650 mg PO Q6HR PRN PRN Reason: Mild Pain or Fever > 100.5 Last Admin: 05/18/21 23:16 Dose: 650 mg Documented by: Albuterol Sulfate (Albuterol Hfa Inhaler) 2 puff INHALATION RT-QID [facility] Last Admin: 05/22/21 10:46 Dose: 2 puff Documented by: Atorvastatin Calcium (Atorvastatin 20 Mg Tab) 20 mg PO HS [facility] Last Admin: 05/21/21 20:31 Dose: 20 mg Documented by: Chlorhexidine Gluconate (Chlorhexidine Gluconate 15 Ml Cup) 15 ml MUCOUS MEM BID [facility] Last Admin: 05/22/21 10:22 Dose: 15 ml Documented by: Clopidogrel Bisulfate (Clopidogrel 75 Mg Tab) 75 mg PO DAILY [facility] Last Admin: 05/22/21 10:23 Dose: 75 mg Documented by: Divalproex Sodium (Divalproex Er 500 Mg Tab.Er.24h) 500 mg PO BID [facility] Last Admin: 05/19/21 09:52 Dose: Not Given Documented by: Enoxaparin Sodium (Enoxaparin 40 Mg/0.4 Ml Syringe) 40 mg SQ DAILY [facility] Last Admin: 05/22/21 10:29 Dose: 40 mg Documented by: Ferrous Sulfate (Ferrous Sulfate 325 Mg Tab) 325 mg PO DAILY [facility] Last Admin: 05/22/21 10:23 Dose: 325 mg Documented by: Folic Acid (Folic Acid 1 Mg Tab) 1 mg PO DAILY [facility] Last Admin: 05/22/21 10:23 Dose: 1 mg Documented by: Hydrocortisone Sodium Succinate (Hydrocortisone Succinate 100 Mg/2 Ml Vial) 100 mg IV Q8HR [facility] Last Admin: 05/22/21 10:14 Dose: 100 mg Documented by: Piperacillin Sod/Tazobactam (Sod 3.375 gm/ Sodium Chloride) 100 mls @ 25 mls/hr IVPB Q8HR [facility] Last Admin: 05/22/21 10:21 Dose: 25 mls/hr Documented by: Norepinephrine Bitartrate 4 mg (/ Sodium Chloride) 254 mls @ 11.838 mls/hr IV .[id number] [facility]; Protocol Last Titration: 05/22/21 06:08 Dose: 0 mcg/kg/min, 0 mls/hr Documented by: Propofol 1,000 mg/ IV Solution 100 mls @ 0 mls/hr IV .Q0M [facility]; Protocol Last Titration: 05/22/21 05:30 Dose: 0 mcg/kg/min, 0 mls/hr Documented by: Valproic Acid 250 mg/ Sodium (Chloride) 102.5 mls @ 100 mls/hr IVPB Q6HR@0300,0900,1500,2100 [facility] Last Admin: 05/22/21 10:23 Dose: 100 mls/hr Documented by: Dextrose/Water (Dextrose 5%-Water Iv Soln) 1,000 mls @ 100 mls/hr IV .Q10H [facility] Last Admin: 05/22/21 02:51 Dose: 100 mls/hr Documented by: Pantoprazole Sodium (Pantoprazole 40 Mg/10 Ml Vial) 40 mg IVP DAILY [facility] Last Admin: 05/22/21 10:22 Dose: 40 mg Documented by: Physical Exam: Gen: this is a 70-year-old male currently sedated and intubated. Temp is 97.4F, pulse is 82, respirations are 25, arterial blood pressure is 107/51, oxygen saturation is 97% on 40% mechanical ventilation with a PEEP of 5 HEENT: Head is atraumatic, normocephalic. Pupils equal, round. Sclerae is anicteric. NECK: Supple. No JVD. No lymphadenopathy. No thyromegaly. LUNGS: Diminished breath sounds bilaterally with coarse rhonchi and crackles noted. No intercostal retractions. HEART: S1, S2 are muffled ABDOMEN: Soft. Bowel sounds are present. No masses. No tenderness. EXTREMITIES: No pedal edema. No calf tenderness. NEUROLOGICAL: Patient is currently intubated and sedated Assessment: Acute COVID-19 infection with acute COVID-19 bilateral interstitial pneumonia, right more than left with acute hypoxic respiratory failure, now requiring mechanical ventilation Acute kidney injury secondary to acute tubular necrosis from septic shock Chronic kidney disease stage III a secondary to nephrosclerosis Hypoglycemia Change in mental status, metabolic encephalopathy, multifactorial Falling, gait dysfunction Anemia, normocytic anemia of undetermined significance Hypernatremia from poor oral intake Hyperkalemia secondary to acute kidney injury Elevated d-dimer acute renal failure with dehydration history of coronary artery disease history of chronic obstructive pulmonary disease Gastroesophageal reflux disease history of bipolar, schizoaffective disorder and schizophrenia History of nicotine dependence Severe protein calorie malnutrition with a BMI of 19.1 Full code Plan: Recommend to continue with current medications and follow along closely with multiple medical consultations. Prognosis remains guarded with multiple complex medical issues noted. Patient continues on mechanical ventilation with an FiO2 of 40% and PEEP is 5. Patient is off sedation currently in attempting weaning trials with possible extubation today his blood gases are improving. Per n ursing staff patient is not following commands responding appropriately. Recommend continue with current medications and patient has been maintained on IV antibiotics with infectious disease following.. Sputum culture showing Romelia albicans along with Romelia species. Chest x-ray reviewed as mentioned above. Recommend repeat labs in the morning. Nephrology following and sodium level mildly improving. Will continue on D5 and water. Again due to multiple complex medical issues prognosis is quite guarded. Objective - Vital Signs Vital signs: Vital Signs Temp 99.7 F H 05/22/21 04:00 Pulse 78 05/22/21 07:00 Resp 29 H 05/22/21 07:00 BP 125/74 05/22/21 07:00 Pulse Ox 99 05/22/21 07:00 Intake & Output 05/21/21 05/22/21 05/22/21 18:59 06:59 18:59 Intake Total 2524.475 0059.524 Output Total 1000 1145 Balance 152.512 546.524 Intake: IV 900 940 Dextrose 10% in Water 500 840 ml In Empty Bag 1 bag @ 70 mls/hr IV .Q7H9M [facility] Rx#:[id number] Dextrose 5%-0.9% NaCl 1, 900 000 ml @ 100 mls/hr IV . Q10H [facility] Rx#:[id number] Valproate Sodium 250 mg 100 In Sodium Chloride 0.9% 100 ml @ 100 mls/hr IVPB Q6HR@0300,0900,1500,2100 [facility] Rx#:[id number] Intake, IV Titration 252.512 344.524 Amount Norepinephrine 4 mg In 64.478 258.743 Sodium Chloride 0.9% 250 ml @ 0.05 MCG/KG/MIN 11. 838 mls/hr IV .[id number] [facility] Rx#:[id number] propofoL 1,000 mg In 188.034 85.781 Empty Bag 1 bag @ Titrate IV .Q0M [facility] Rx#: [id number] Tube Feeding 317 Other 90 Output: Urine 1000 1145 Other: Voiding Method Indwelling Catheter Indwelling Catheter ABP, PAP, CO, CI - Last Documented Arterial Blood Pressure 120/57 - Labs CBC & Chem 7: 05/22/21 04:30 05/22/21 04:30 Labs: Abnormal Lab Results - Last 24 Hours (Table) 05/21/21 05/21/21 05/21/21 Range/Units 11:34 12:47 21:15 RBC (4.30-5.90) m/uL Hgb (13.0-17.5) gm/dL Hct (39.0-53.0) % MCV (80.0-100.0) fL RDW (11.5-15.5) % Plt Count (150-450) k/uL Lymphocytes # (1.0-4.8) k/uL ABG pO2 (83-108) mmHg ABG Total CO2 (19-24) mmol/L ABG O2 Saturation (94-97) % Sodium 151 H 152 H (137-145) mmol/L Chloride 123 H 123 H (98-107) mmol/L BUN 36 H 34 H (9-20) mg/dL Creatinine 1.61 H 1.58 H (0.66-1.25) mg/dL Glucose 168 H 151 H (74-99) mg/dL POC Glucose (mg/dL) 160 H (75-99) mg/dL Calcium 8.2 L 8.2 L (8.4-10.2) mg/dL AST (17-59) U/L C-Reactive Protein (<1.0) mg/dL Total Protein (6.3-8.2) g/dL Albumin (3.5-5.0) g/dL 05/22/21 05/22/21 05/22/21 Range/Units 04:30 04:30 05:31 RBC 3.02 L (4.30-5.90) m/uL Hgb 9.6 L (13.0-17.5) gm/dL Hct 30.4 L (39.0-53.0) % MCV 100.8 H (80.0-100.0) fL RDW 15.6 H (11.5-15.5) % Plt Count 98 L (150-450) k/uL Lymphocytes # 0.2 L (1.0-4.8) k/uL ABG pO2 112 H (83-108) mmHg ABG Total CO2 26 H (19-24) mmol/L ABG O2 Saturation 98.9 H (94-97) % Sodium 148 H (137-145) mmol/L Chloride 122 H (98-107) mmol/L BUN 36 H (9-20) mg/dL Creatinine 1.55 H (0.66-1.25) mg/dL Glucose 199 H (74-99) mg/dL POC Glucose (mg/dL) (75-99) mg/dL Calcium 8.0 L (8.4-10.2) mg/dL AST 13 L (17-59) U/L C-Reactive Protein 5.2 H (<1.0) mg/dL Total Protein 4.7 L (6.3-8.2) g/dL Albumin 2.1 L (3.5-5.0) g/dL Microbiology - Last 24 Hours (Table) 05/17/21 22:00 Blood Culture - Preliminary Blood No Growth after 96 hours 05/19/21 18:56 Blood Culture - Preliminary Blood No Growth after 48 hours 05/19/21 18:56 Blood Culture - Preliminary Blood No Growth after 48 hours 05/19/21 Unknown Gram Stain - Preliminary Sputum Sputum Culture - Preliminary Yeast species
[2021-05-22] MEDS ORDERED: LORazepam 2 MG/ML INJ IV PRN (17:00)
[2021-05-22] MEDS ORDERED: LORazepam 2 MG/ML INJ ONE (17:12)
[2021-05-22 17:43] LABS: Glucose,Whole Blood 145 mg/dL (75-99)
[2021-05-22] MEDS: LORazepam 2 MG/ML INJ IV PRN (17:46)
[2021-05-22] MEDS: NYSTATIN 100,000 UNIT/ML SUSP 500,000 UNIT/5 ML CUP PO SCH ×2 (17:55→20:40)
[2021-05-22] MEDS: ATORVASTATIN 20 MG TAB PO SCH (20:40)
[2021-05-23] MEDS: PIPERACILLIN-TAZOBACTAM 3.375 GM in SODIUM CHLORIDE 0.9% 100 ML IVPB SCH ×3 (00:49→16:55)
[2021-05-23] MEDS: HYDROCORTISONE SUCCINATE 100 MG/2 ML VIAL IV SCH ×3 (00:49→20:11)
[2021-05-23] MEDS: DEXTROSE 5% IN WATER 1,000 ML IV SCH ×4 (00:49→21:13)
[2021-05-23] MEDS: VALPROATE SODIUM 250 MG in SODIUM CHLORIDE 0.9% 100 ML IVPB SCH ×4 (03:20→20:11)
[2021-05-23 05:36] LABS: ABG Base Excess 1.6 mmol/L; ABG HCO3 26 mmol/L (21-25); ABG Oxygen Saturation 99.4 % (94-97); ABG PCO2 40 mmHg (35-45); ABG PH 7.42 (7.35-7.45); ABG PO2 136 mmHg (83-108); ABG TCO2 27 mmol/L (19-24); Allen Test Performed? Yes
[2021-05-23 05:42] LABS: HCT 28.1 % (39.0-53.0); HGB 8.9 gm/dL (13.0-17.5); Hypochromasia Slight; MCH 31.4 pg (25.0-35.0); MCHC 31.6 g/dL (31.0-37.0); MCV 99.4 fL (80.0-100.0); Macrocytosis Slight; Mean Platelet Volume 8.5; Platelet Count 107 k/uL (150-450); RBC 2.82 m/uL (4.30-5.90); RDW 15.4 % (11.5-15.5); WBC 5.5 k/uL (3.8-10.6)
[2021-05-23 05:44] LABS: Potassium 3.5 mmol/L (3.5-5.1); Total Bilirubin 0.3 mg/dL (0.2-1.3); Total Protein 4.6 g/dL (6.3-8.2)
[2021-05-23] MEDS: POTASSIUM BICARBONATE/CIT AC 20 MEQ TABLET.EFF NG-TUBE SCH ×2 (06:29→08:12)
[2021-05-23] MEDS: ALBUTEROL HFA INHALER INHALATION SCH ×4 (07:48→19:28)
[2021-05-23] MEDS: CHLORHEXIDINE GLUCONATE 15 ML CUP MUCOUS MEM SCH ×2 (08:13→20:10)
[2021-05-23] MEDS: FOLIC ACID 1 MG TAB PO SCH (08:13)
[2021-05-23] MEDS: FERROUS SULFATE 325 MG TAB PO SCH (08:13)
[2021-05-23] MEDS: CLOPIDOGREL 75 MG TAB PO SCH (08:13)
[2021-05-23] MEDS: ENOXAPARIN 40 MG/0.4 ML SYRINGE SQ SCH (08:13)
[2021-05-23] MEDS: PANTOPRAZOLE 40 MG/10 ML VIAL IVP SCH (08:14)
[2021-05-23] MEDS: NYSTATIN 100,000 UNIT/ML SUSP 500,000 UNIT/5 ML CUP PO SCH ×4 (08:14→21:12)
--- NOTE | 2021-05-23 08:51 | P.PN ---
Subjective Patient is seen in follow-up for acute kidney injury on chronic kidney disease. Renal function improved. Sodium 147. Nonoliguric. Receiving tube feeds. Off Levophed. Intubated. Vital signs are stable. HEENT: Intubated. LUNGS: Breath sounds decreased. HEART: Rate and Rhythm are regular. ABDOMEN: No distention. EXTREMITITES: No edema. Objective - Vital Signs Vital signs: Vital Signs Temp 97.3 F L 05/23/21 04:00 Pulse 54 L 05/23/21 07:00 Resp 35 H 05/23/21 07:00 BP 125/74 05/22/21 07:00 Pulse Ox 96 05/23/21 07:00 Intake & Output 05/22/21 05/23/21 05/23/21 18:59 06:59 18:59 Intake Total 1862 1716 120 Output Total 755 620 60 Balance 1107 1096 60 Weight 65.2 kg Intake: IV 1475 1605 120 Dextrose 5% in Water 1, 1080 120 000 ml @ 120 mls/hr IV . Q8H20M [facility] Rx#:[id number] Dextrose 5%-0.9% NaCl 1, 1100 300 000 ml @ 100 mls/hr IV . Q10H [facility] Rx#:[id number] Piperacillin-Tazobactam 3 175 25 .375 gm In Sodium Chloride 0.9% 100 ml @ 25 mls/hr IVPB Q8HR [facility] Rx# :[id number] Valproate Sodium 250 mg 200 200 In Sodium Chloride 0.9% 100 ml @ 100 mls/hr IVPB Q6HR@0300,0900,1500,2100 [facility] Rx#:[id number] Tube Feeding 297 81 Other 90 30 Output: Urine 755 620 60 Other: Voiding Method Indwelling Catheter Indwelling Catheter ABP, PAP, CO, CI - Last Documented Arterial Blood Pressure 118/53 - Labs CBC & Chem 7: 05/23/21 04:50 05/23/21 04:50 Labs: Abnormal Lab Results - Last 24 Hours (Table) 05/22/21 05/22/21 05/22/21 Range/Units 11:54 13:08 17:35 RBC (4.30-5.90) m/uL Hgb (13.0-17.5) gm/dL Hct (39.0-53.0) % Plt Count (150-450) k/uL ABG pO2 (83-108) mmHg ABG HCO3 26 H (21-25) mmol/L ABG Total CO2 27 H (19-24) mmol/L ABG O2 Saturation 97.8 H (94-97) % Sodium 148 H (137-145) mmol/L Chloride (98-107) mmol/L BUN (9-20) mg/dL Creatinine (0.66-1.25) mg/dL Glucose (74-99) mg/dL POC Glucose (mg/dL) 142 H (75-99) mg/dL Calcium (8.4-10.2) mg/dL Total Protein (6.3-8.2) g/dL Albumin (3.5-5.0) g/dL 05/22/21 05/23/21 05/23/21 Range/Units 17:41 04:50 04:50 RBC 2.82 L (4.30-5.90) m/uL Hgb 8.9 L (13.0-17.5) gm/dL Hct 28.1 L (39.0-53.0) % Plt Count 107 L (150-450) k/uL ABG pO2 (83-108) mmHg ABG HCO3 (21-25) mmol/L ABG Total CO2 (19-24) mmol/L ABG O2 Saturation (94-97) % Sodium 147 H (137-145) mmol/L Chloride 118 H (98-107) mmol/L BUN 37 H (9-20) mg/dL Creatinine 1.44 H (0.66-1.25) mg/dL Glucose 140 H (74-99) mg/dL POC Glucose (mg/dL) 145 H (75-99) mg/dL Calcium 8.0 L (8.4-10.2) mg/dL Total Protein 4.6 L (6.3-8.2) g/dL Albumin 2.0 L (3.5-5.0) g/dL 05/23/21 Range/Units 05:32 RBC (4.30-5.90) m/uL Hgb (13.0-17.5) gm/dL Hct (39.0-53.0) % Plt Count (150-450) k/uL ABG pO2 136 H (83-108) mmHg ABG HCO3 26 H (21-25) mmol/L ABG Total CO2 27 H (19-24) mmol/L ABG O2 Saturation 99.4 H (94-97) % Sodium (137-145) mmol/L Chloride (98-107) mmol/L BUN (9-20) mg/dL Creatinine (0.66-1.25) mg/dL Glucose (74-99) mg/dL POC Glucose (mg/dL) (75-99) mg/dL Calcium (8.4-10.2) mg/dL Total Protein (6.3-8.2) g/dL Albumin (3.5-5.0) g/dL Microbiology - Last 24 Hours (Table) 05/17/21 22:00 Blood Culture - Preliminary Blood No Growth after 120 hours 05/19/21 18:56 Blood Culture - Preliminary Blood No Growth after 72 hours 05/19/21 18:56 Blood Culture - Preliminary Blood No Growth after 72 hours 05/19/21 Unknown Gram Stain - Final Sputum Sputum Culture - Final Romelia sp,not albicans/galbr Romelia albicans Assessment and Plan Plan: Assessment: 1. Acute kidney injury secondary to ATN secondary to septic shock. Creatinine peaked at 2.07 this admission - 1.44 today. Nonoliguric. 2. Chronic kidney disease stage IIIa with baseline creatinine in the range of 1.2-1.4 secondary to nephrosclerosis. 3. Hypernatremia from the lack of oral water intake. 4. Septic shock secondary to COVID-19 pneumonia. Also concern for aspiration pneumonia. 5. Hyperkalemia secondary to acute kidney injury. Improved with medical management. Now hypokalemic, replaced. 6. Hypoglycemia s/p D10. Resolved. Plan: Increase D5W to 150 mL an hour. Repeat sodium level this evening. Wean FiO2. Avoid nephrotoxins. Continue to monitor renal function and urine output.
--- NOTE | 2021-05-23 11:11 | XR ---
EXAMINATION TYPE: XR chest 1V portable DATE OF EXAM: 05/23/2021 CLINICAL HISTORY: Difficulty breathing and covid progress study. TECHNIQUE: Single AP portable semi-upright view of the chest is obtained. COMPARISON: Chest x-ray from one day earlier and older studies. FINDINGS: Stable endotracheal tube and orogastric tubes. Stable Right internal jugular central venou s. Background chronic emphysematous change with persistent bilateral multifocal increased opacities grea test in the periphery and lower lungs is redemonstrated. Cardiac silhouette size is stable and within normal limits with atherosclerotic change aortic knob redemonstrated. Osseous structures remain daniela neralized. Underlying scoliosis is present. IMPRESSION: Chronic emphysematous and pulmonary fibrotic changes with small size bilateral pleural ef fusions and bilateral multifocal increased opacities consistent with covid-19 infection are redemonst rated. No significant change from one day earlier.
[2021-05-23 11:28] LABS: Glucose,Whole Blood 103 mg/dL (75-99)
--- NOTE | 2021-05-23 13:29 | P.PN ---
Subjective Progress Note Date: 05/23/21 Principal diagnosis: Acute COVID-19 pneumonia This is a 70-year-old male patient, brought into the emergency department by a caregiver. The patient is unable to volunteer any history. He has issues with dementia and mental health. In fact he is unable to communicate. He is currently in the hospital for COVID pneumonia. The patient initially went to [place] where he was seen in the [facility] for COVID 19 infection. He was discharged home. This is approximately 4 days ago. Following that, the caregiver sent the patient to our hospital as the patient's condition was getting worse and apparently continued to have worsening mentation. The patient was unable to communicate time of his admission. He was mumbling and unable to make full sentences or other words. He was restless in bed. At times agitated. At times screaming. He was quite uncooperative during the evaluation. No history of any head trauma. The patient apparently had a fall and he sustained a trauma to his neck area following the fall. This occurred at home in a bathtub. In the emergency department, the patient was found to be hypoxic with a pulse ox of 80% and the patient required oxygen. The patient is currently on oxygen at 10 L high flow. Initial CAT scan of the brain and the CAT scan of the C-spine showed no acute process. The patient was given 10 mg of Decadron in the emergency department regarding his COVID 19 pneumonia. Chest x-ray showed bilateral lower lobe airspace disease. Note that the pulmonary infiltrates were worse on the right compared to the leftand the infiltrate was rather asymmetric, which obviously raises concerns for an underlying pneumonia, aspiration and the patient was given a dose of Rocephin and Zithromax in the emergency department. His white cell count is at 6.4 with a hemoglobin of 12 and a platelet count of 130. Sodium was 155 this morning with a potassium level of 6.1, BUN is at 50 with a creatinine of 1.5, LFTs are normal, lactic acid level was at 1.9, pro calcitonin level is at 0.16, d-dimer is at 0.8 and the rest of the coagulation profile is within normal limits. The patient is currently on IV Decadron. On 05/19/2021 patient seen in follow-up in the intensive care unit, overnight his condition continued to deteriorate, and early this morning at 4:00 on 05/19/2021 patient had rapid response team called to the bedside for concern of worsening shortness of breath, and worsening hypoxia, patient was confused and in respiratory distress, he is not answering any questions, on 10 L of oxygen his pulse ox was 94%, however his mental status was significantly altered, patient was transferred to the intensive care unit for high likelihood of intubation, this morning she was intubated and placed on mechanical ventilator, with assist-control mode of ventilation with a rate of 30, tidal on was 300, FiO2 100% and PEEP of 5. Early in the morning his blood gases showed pO2 of 82, pCO2 of 80, and pH of 7.18, this was done and FiO2 of 70%. Post intubation blood gas showed a pO2 of 81, pCO2 of 63, and pH of 7.24, this was done and FiO2 of 50%. Patient was hypotensive following intubation, he was given 2 L of fluid boluses, and his maintenance IV fluid is D5W at 50 ML per hour which will be switched to normal saline, he is on norepinephrine at 0.14 mics per kilo per minute, Diprivan infusion at 50 mics per kilo per minute. He remains on prophylactic Lovenox 40 mg daily, and Decadron 6 mg daily. He remains on his home medications including Lipitor, Plavix, Depakote, iron supplementation, his antipsychotics, midodrine which patient have not been able to take related to his altered mental status. Patient was also suspected to be aspirating, and he was placed on Zosyn for empiric antibiotic coverage. Today's labs have been reviewed, his white blood cell count is 7.1, hemoglobin of 12.7, sodium is 153 and patient has been on D5W at a rate of 100 ML per hour, his oral intake has been extremely poor, potassium is 5.8, chloride is 124, BUN of 69, creatinine is 1.97. Patient's extremely cachectic, and frail. This morning patient had to be intubated and placed on mechanical ventilator, we will initiate tube feedings today, consult registered dietitian for tube feeding recommendation, patient will be fluid bolused, and stabilized hemodynamically. On 05/20/2021 patient seen in follow-up in intensive care unit. Yesterday he was intubated and placed on mechanical ventilator in view of worsening hypoxia and dyspnea. Today he remains sedated, and intubated on assist control mode of ventilation with a rate of 30, tidal volume is 325, FiO2 of 50% and PEEP of 10, this morning blood gases shows pO2 of 95, pCO2 of 70, and pH of 7.18. This was done on the above mentioned ventilator settings, today's chest x-ray shows some improvement of bibasilar infiltrates more so on the right, and possibility of developing small right pleural effusion. Patient is currently on a vasopressor support in the form of norepinephrine is 0.38 mics per kilo per minute which is about 24.7 mics per minute, he is on Diprivan at 50 mics per kilo per minute, and overnight he had episode of hypoglycemia and patient was placed on 10% dextrose at a rate of 100 ML per hour, patient was extremely dehydrated prior to his intubation, his had very poor oral intake. He was given 2 L fluid bolus yesterday, however still requiring vasopressor support, and case was discussed with nephrology who agreed that patient is still extremely intravascular volume depleted, and is recommending another 1 or 2 L fluid bolus today. Today's labs have been reviewed and his white blood cell count is 14.6, hemoglobin is 12.1, platelet count is 223, sodium is 148, potassium is 4.7, chloride is 121, CO2 is 23, BUN of 49 creatinine is 1.93, his LDH is 560, within normal limits, and CRP is 7.2, improving, his last proBNP from a couple days ago was 5790 however patient seems to be extremely dehydrated. His pro calcitonin levels were negative 2 at 0.16, and 0.12 however his chest x-ray findings suggest possibility of aspiration pneumonia, and patient was placed on Zosyn for possibility of aspiration. Sputum culture has been sent and pending, preliminary Gram stain showing few PMNs, rare budding yeast, final culture is pending, blood cultures are negative thus far. On 05/21/2021 patient seen in follow-up in intensive care unit, patient remains sedated, and intubated on assist control mode of ventilation with a rate of 36, tidal volume was 375, FiO2 of 40% and 5. The blood count shows pO2 of 71, pCO2 of 41, pH is 7.40, today's chest x-ray has been reviewed showing bilateral airspace disease with interstitial changes and prominent lung volumes indicative of underlying COPD. Vital signs have been stable overnight, patient is on norepinephrine 0.1 mics per kilo per minute, Diprivan is present, and D5W at 100 ML per hour, and plan an 70-20 ML per hour, he is on tube feedings with Nepro at 20 ML per hour and 10 of water flushes, he is in sinus mechanism with a rate of 82 BPM, patient has had fevers overnight with a temp of 100.5F. He is covered with Zosyn. His blood cultures have been negative, his sputum culture showed yeast species, culture is pending. Today's labs have been reviewed and his white blood cell count is 8.5, hemoglobin is 10.4, his sodium is improved and is down to 149, in follow-up sodium level came back at 151, patient remains on free water at 100 ML per hour, nephrology is following. Potassium is 4.0, chloride is 121, BUN is 40, creatinine is improved and is down to 1.58, his cortisol level 7, and this was on IV Decadron 6 mg daily, and patient remains on prophylactic dose Lovenox, Zosyn, yesterday he received an additional liter bolus in IV fluids. His urine output is in the order of 100-125 ML per hour. Overall his oxygenation and ventilation have significantly improved, and patient is maintaining stable O2 saturations on FiO2 of 40% and PEEP of 5, his peak Pressure is only 18, his plateau is 13. On 05/22/2021 patient seen in follow-up in intensive care unit, he remains intubated on mechanical ventilator, currently assist control mode of ventilation with a rate at 36, tidal 375, FiO2 40% and PEEP of 5, this was blood gas shows pO2 of 112, pCO2 40, pH of 7.40 and this was done and the above-mentioned vent settings, today's chest x-ray has been reviewed showing chronic emphysematous pulmonary fibrotic changes with moderate bilateral pleural effusions and susan ateral multifocal increased opacities consistent with COVID-19 infection. No significant change compared the day before. Patient's sedation has been placed on hold this morning. Patient is waking up, becoming slightly restless, however he is not following commands yet. He is on D5W at rate of 100 ML per hour, norepinephrine drip has been weaned off, patient continues on hydrocortisone 100 mg every 8 hours for his serum cortisol level of 7, his TSH level was 0.923, within normal limits. He's tolerating tube feedings he is receiving Nepro at 27 per hour with a goal of 27 standard water flushes, vital signs have been stable, no fever overnight. He did have a low-grade fever early this morning with a temp of 99.7F. His blood cultures have been negative, his sputum culture showed Romelia species. Patient remains on Zosyn for antibiotic coverage, on prophylactic Lovenox 40 mg daily. The rest of patient's labs have been reviewed, his white blood cell count is 6.0, hemoglobin of 9.6, sodium is improving and is down to 148, potassium is 4.0, chloride is 122, BUN is 26, creatinine is improving and is down to 1.55. On 05/23/2021 patient seen in follow-up in the intensive care unit. He remains intubated, on mechanical ventilator, currently on assist control mode of ventilation with a rate of 36, tidal volume 375, FiO2 of 40% and PEEP of 5. This morning's blood gas shows pO2 of 136, pCO2 of 40, and pH of 7.42, this was done and above-mentioned vent settings. Today's chest x-ray has been reviewed showing chronic emphysematous and pulmonary fibrotic changes with small bilate ral pleural effusions and bilateral multifocal opacities, without significant change compared to the prior study. Today's labs have been reviewed, white blood cell count is 5.5, hemoglobin is 8.9, sodium is 147, improving potassium is 3.5, chloride is 118, CO2 is 27, BUN 37, creatinine is 1.44. Patient is receiving D5W 1 50 ML per hour, nephrology is managing, he remains on hydrocortisone 100 mg every 8 hours, his been off vasopressor support for 48 hours. He has had no fever or chills. He remains on Zosyn. Sputum culture showed Romelia species, blood cultures have been negative. Neurologically patient has been off sedation for the past 24 hours. However patient is not following commands, although he is awake, at times he becomes restless, his been getting intermittent doses of when necessary on as-needed basis. We understand patient has underlying history of dementia however his baseline mental status is not known to us, his level of consciousness is certainly improved, however patient has not been able to follow any instructions. And for that reason patient has not been able to tolerate weaning trials, last night he had to be placed on assist-control mode of ventilation because he was extremely anxious, she did tolerate pressure support of 14 and IMV of 10 for a couple of hours, however became very agitated, and was placed back on assist control mode of ventilation. he is tolerating tube feedings. Objective - Vital Signs Vital signs: Vital Signs Temp 97.7 F 05/23/21 12:00 Pulse 75 05/23/21 12:00 Resp 36 H 05/23/21 12:00 BP 125/74 05/22/21 07:00 Pulse Ox 98 05/23/21 12:00 Intake & Output 05/22/21 05/23/21 05/23/21 18:59 06:59 18:59 Intake Total 1862 1716 120 Output Total 755 620 60 Balance 1107 1096 60 Weight 65.2 kg 72.8 kg Intake: IV 1475 1605 120 Dextrose 5% in Water 1, 1080 120 000 ml @ 120 mls/hr IV . Q8H20M [facility] Rx#:[id number] Dextrose 5%-0.9% NaCl 1, 1100 300 000 ml @ 100 mls/hr IV . Q10H [facility] Rx#:[id number] Piperacillin-Tazobactam 3 175 25 .375 gm In Sodium Chloride 0.9% 100 ml @ 25 mls/hr IVPB Q8HR [facility] Rx# :[id number] Valproate Sodium 250 mg 200 200 In Sodium Chloride 0.9% 100 ml @ 100 mls/hr IVPB Q6HR@0300,0900,1500,2100 [facility] Rx#:[id number] Tube Feeding 297 81 Other 90 30 Output: Urine 755 620 60 Other: Voiding Method Indwelling Catheter Indwelling Catheter ABP, PAP, CO, CI - Last Documented Arterial Blood Pressure 136/71 - Exam GENERAL EXAM: Extremely frail and cachectic 70-year-old white male, intubated, and off sedation currently, becoming a bit restless, but not following command on assist control mode of ventilation with a rate of 36, tidal on his 375, FiO2 40% and PEEP of 5, comfortable in no apparent distress. HEAD: Normocephalic/atraumatic. EYES: Normal reaction of pupils, equal size. Conjunctiva pink, sclera white. NOSE: Clear with pink turbinates. THROAT: No erythema or exudates. NECK: No masses, no JVD, no thyroid enlargement, no adenopathy. CHEST: No chest wall deformity. Symmetrical expansion. LUNGS: Equal air entry with diminished breath sounds and crackles CVS: Regular rate and rhythm, normal S1 and S2, no gallops, no murmurs, no rubs ABDOMEN: Soft, nontender. No hepatosplenomegaly, normal bowel sounds, no guarding or rigidity. EXTREMITIES: No clubbing, mild generalized swelling noted in upper and lower extremities no cyanosis, 2+ pulses and upper and lower extremities. MUSCULOSKELETAL: Muscle strength and tone normal. SPINE: No scoliosis or deformity SKIN: No rashes CENTRAL NERVOUS SYSTEM: Sedated, intubated No focal deficits, tone is normal in all 4 extremities. - Labs CBC & Chem 7: 05/23/21 04:50 05/23/21 04:50 Labs: Abnormal Lab Results - Last 24 Hours (Table) 05/22/21 05/22/21 05/22/21 Range/Units 13:08 17:35 17:41 RBC (4.30-5.90) m/uL Hgb (13.0-17.5) gm/dL Hct (39.0-53.0) % Plt Count (150-450) k/uL ABG pO2 (83-108) mmHg ABG HCO3 26 H (21-25) mmol/L ABG Total CO2 27 H (19-24) mmol/L ABG O2 Saturation 97.8 H (94-97) % Sodium 148 H (137-145) mmol/L Chloride (98-107) mmol/L BUN (9-20) mg/dL Creatinine (0.66-1.25) mg/dL Glucose (74-99) mg/dL POC Glucose (mg/dL) 145 H (75-99) mg/dL Calcium (8.4-10.2) mg/dL Total Protein (6.3-8.2) g/dL Albumin (3.5-5.0) g/dL 05/23/21 05/23/21 05/23/21 Range/Units 04:50 04:50 05:32 RBC 2.82 L (4.30-5.90) m/uL Hgb 8.9 L (13.0-17.5) gm/dL Hct 28.1 L (39.0-53.0) % Plt Count 107 L (150-450) k/uL ABG pO2 136 H (83-108) mmHg ABG HCO3 26 H (21-25) mmol/L ABG Total CO2 27 H (19-24) mmol/L ABG O2 Saturation 99.4 H (94-97) % Sodium 147 H (137-145) mmol/L Chloride 118 H (98-107) mmol/L BUN 37 H (9-20) mg/dL Creatinine 1.44 H (0.66-1.25) mg/dL Glucose 140 H (74-99) mg/dL POC Glucose (mg/dL) (75-99) mg/dL Calcium 8.0 L (8.4-10.2) mg/dL Total Protein 4.6 L (6.3-8.2) g/dL Albumin 2.0 L (3.5-5.0) g/dL 05/23/21 Range/Units 11:27 RBC (4.30-5.90) m/uL Hgb (13.0-17.5) gm/dL Hct (39.0-53.0) % Plt Count (150-450) k/uL ABG pO2 (83-108) mmHg ABG HCO3 (21-25) mmol/L ABG Total CO2 (19-24) mmol/L ABG O2 Saturation (94-97) % Sodium (137-145) mmol/L Chloride (98-107) mmol/L BUN (9-20) mg/dL Creatinine (0.66-1.25) mg/dL Glucose (74-99) mg/dL POC Glucose (mg/dL) 103 H (75-99) mg/dL Calcium (8.4-10.2) mg/dL Total Protein (6.3-8.2) g/dL Albumin (3.5-5.0) g/dL Microbiology - Last 24 Hours (Table) 05/17/21 22:00 Blood Culture - Preliminary Blood No Growth after 120 hours 05/19/21 18:56 Blood Culture - Preliminary Blood No Growth after 72 hours 05/19/21 18:56 Blood Culture - Preliminary Blood No Growth after 72 hours 05/19/21 Unknown Gram Stain - Final Sputum Sputum Culture - Final Romelia sp,not albicans/galbr Romelia albicans Assessment and Plan Plan: Assessment: #1. Acute hypoxic respiratory failure related to acute COVID-19 pneumonia, and possibility of bacterial infection/aspiration related pneumonia is not entirely excluded. Patient was brought into the emergency department on 05/17/2021 per EMS, patient is a poor historian, reportedly has history of bipolar disease and dementia. Came in primarily for evaluation of altered mental status. Transferred from [place] emergency department for COVID-19 related pneumonia. The patient was taken to the hospital in [place] 4 days prior to this admission and the symptom onset was probably even prior to that. Exact onset of symptoms is not known. Patient was transferred to the intensive care unit on 05/19/2021 for worsening hypoxia, and hypercapnia, and altered mental status, and was intubated on 05/19/2021 on assist control mode of ventilation with a rate of 30, tidal on his 300, FiO2 50% and PEEP of 10. Patient was given pressure support trials with IMV backup rate, however his mentation is still altered, and for that reason we are not able to proceed with extubation #2. Acute hypercapnic respiratory failure, related to acute aspiration, and possible COVID-19 pneumonia, intubated #3. Hypotension, related to dehydration, and possibility of septic shock is not excluded. Patient remains on norepinephrine for vasopressor support, serum cortisol level was only 7, stressed of hydrocortisone started, and hypotension is currently resolved and patient is off vasopressor support #4. Altered mental status with worsening from baseline #5. History of dementia and schizoaffective disorder #6. Acute dehydration and hypernatremia, on the D5W at 100 ML per hour, improving #7. Chronic stage 3 kidney disease #8. COPD #9. History of coronary artery disease #10. GERD/reflux #11. Hyperlipidemia #12. Acute kidney injury related to ATN, and dehydration, patient continues on IV hydration and continues to receive fluid boluses #13. Hyperkalemia related to GU[place]UPE, resolved #14. Hypoglcemia, was placed on D10 at 100 ml, will start tube feeds today. Blood sugars improved Plan: Today's blood gases, labs, CXR and labs reviewed Patient was given pressure support trial yesterday with pressure support of 14 and IMV backup rate He did tolerate that for a couple of hours however at this point because of his altered mentation and inability to follow instructions we're unable to extubate him Continue with assist control mode of ventilation as previously ordered Today's blood gas has been reviewed, no changes to his ventilator settings His mentation continues to be altered, he is awake, but not following command Keep off sedation, may offer intermittent doses of Ativan for restlessness and anxiety Continue IV fluids per nephrology, patient is on D5W at 150 ML per hour, his hypernatremia is improving Continue nutritional support with tube feedings Continue Zosyn, continue multivitamins We'll cut back to hydrocortisone dose to 50 mg twice daily Continue GI and DVT prophylaxis We will consult Dr. Moscoso from surgical services for possibility of tracheostomy and PEG tube placement This can be done as early as tomorrow if there is surgical availability We suspect his mental status will continue to be altered, especially in view of his critical illness severity, and underlying history of dementia, and schizoaf fective disorder Follow-up chest x-ray, labs and blood gases in the morning I performed a history & physical examination of the patient and discussed their management with my nurse practitioner, Veronica Chiu. I reviewed the nurse practitioner's note and agree with the documented findings and plan of care. Lung sounds are positive for diminished breath sounds throughout the lung watson. The findings and the impression was discussed with the patient. I attest to the documentation by the nurse practitioner. Time with Patient: Greater than 30
--- NOTE | 2021-05-23 15:45 | P.PN ---
Subjective Progress Note Date: 05/22/21 Principal diagnosis: COVID-19 pneumonia Interval history: Patient is a 70-year-old male presented to the hospital with acute respiratory failure in this but have a evidence of multifocal pneumonia secondary to COVID-19. Patient did have worsening of his respiratory status requiring intubation on 05/19/2021 On today's evaluation that is 05/22/2021, The patient is afebrile today, patient is hemodynamically stable not requiring any pressor support, FiO2 is currently a t 40%, no significant purulent secretion through the ET or diarrhea reported by the nursing staff Objective - Vital Signs Vital signs: Vital Signs Temp 97.4 F L 05/22/21 12:00 Pulse 82 05/22/21 13:00 Resp 23 05/22/21 13:00 BP 125/74 05/22/21 07:00 Pulse Ox 97 05/22/21 13:00 Intake & Output 05/21/21 05/22/21 05/22/21 18:59 06:59 18:59 Intake Total 8256.546 8271.524 1022 Output Total 1000 1145 430 Balance 152.512 546.524 592 Weight 65.2 kg Intake: IV 900 940 800 Dextrose 10% in Water 500 840 ml In Empty Bag 1 bag @ 70 mls/hr IV .Q7H9M [facility] Rx#:[id number] Dextrose 5%-0.9% NaCl 1, 900 600 000 ml @ 100 mls/hr IV . Q10H [facility] Rx#:[id number] Piperacillin-Tazobactam 3 100 .375 gm In Sodium Chloride 0.9% 100 ml @ 25 mls/hr IVPB Q8HR [facility] Rx# :[id number] Valproate Sodium 250 mg 100 100 In Sodium Chloride 0.9% 100 ml @ 100 mls/hr IVPB Q6HR@0300,0900,1500,2100 [facility] Rx#:[id number] Intake, IV Titration 252.512 344.524 Amount Norepinephrine 4 mg In 64.478 258.743 Sodium Chloride 0.9% 250 ml @ 0.05 MCG/KG/MIN 11. 838 mls/hr IV .[id number] [facility] Rx#:[id number] propofoL 1,000 mg In 188.034 85.781 Empty Bag 1 bag @ Titrate IV .Q0M [facility] Rx#: [id number] Tube Feeding 317 162 Other 90 60 Output: Urine 1000 1145 430 Other: Voiding Method Indwelling Catheter Indwelling Catheter Indwelling Catheter ABP, PAP, CO, CI - Last Documented Arterial Blood Pressure 127/68 - Exam General description is an elderly male intubated on the vent Respiratory system:Unlabored breathing, decreased intensity in breath sounds. No wheeze. Heart S1, S2. Regular rate and rhythm. Abdomen soft, no tenderness. Extremities: No edema feet - Labs CBC & Chem 7: 05/23/21 04:50 05/23/21 04:50 Labs: Abnormal Lab Results - Last 24 Hours (Table) 05/21/21 05/22/21 05/22/21 Range/Units 21:15 04:30 04:30 RBC 3.02 L (4.30-5.90) m/uL Hgb 9.6 L (13.0-17.5) gm/dL Hct 30.4 L (39.0-53.0) % MCV 100.8 H (80.0-100.0) fL RDW 15.6 H (11.5-15.5) % Plt Count 98 L (150-450) k/uL Lymphocytes # 0.2 L (1.0-4.8) k/uL ABG pO2 (83-108) mmHg ABG HCO3 (21-25) mmol/L ABG Total CO2 (19-24) mmol/L ABG O2 Saturation (94-97) % Sodium 152 H 148 H (137-145) mmol/L Chloride 123 H 122 H (98-107) mmol/L BUN 34 H 36 H (9-20) mg/dL Creatinine 1.58 H 1.55 H (0.66-1.25) mg/dL Glucose 151 H 199 H (74-99) mg/dL POC Glucose (mg/dL) (75-99) mg/dL Calcium 8.2 L 8.0 L (8.4-10.2) mg/dL AST 13 L (17-59) U/L C-Reactive Protein 5.2 H (<1.0) mg/dL Total Protein 4.7 L (6.3-8.2) g/dL Albumin 2.1 L (3.5-5.0) g/dL 01/05/22/21 05/22/21 Range/Units 05:31 11:54 13:08 RBC (4.30-5.90) m/uL Hgb (13.0-17.5) gm/dL Hct (39.0-53.0) % MCV (80.0-100.0) fL RDW (11.5-15.5) % Plt Count (150-450) k/uL Lymphocytes # (1.0-4.8) k/uL ABG pO2 112 H (83-108) mmHg ABG HCO3 26 H (21-25) mmol/L ABG Total CO2 26 H 27 H (19-24) mmol/L ABG O2 Saturation 98.9 H 97.8 H (94-97) % Sodium (137-145) mmol/L Chloride (98-107) mmol/L BUN (9-20) mg/dL Creatinine (0.66-1.25) mg/dL Glucose (74-99) mg/dL POC Glucose (mg/dL) 142 H (75-99) mg/dL Calcium (8.4-10.2) mg/dL AST (17-59) U/L C-Reactive Protein (<1.0) mg/dL Total Protein (6.3-8.2) g/dL Albumin (3.5-5.0) g/dL Microbiology - Last 24 Hours (Table) 05/19/21 Unknown Gram Stain - Final Sputum Sputum Culture - Final Romelia sp,not albicans/galbr Romelia albicans 05/17/21 22:00 Blood Culture - Preliminary Blood No Growth after 96 hours 05/19/21 18:56 Blood Culture - Preliminary Blood No Growth after 48 hours 05/19/21 18:56 Blood Culture - Preliminary Blood No Growth after 48 hours Assessment and Plan (1) Aspiration pneumonia Current Visit: Yes Status: Acute Code(s): J69.0 - PNEUMONITIS DUE TO INHALATION OF FOOD AND VOMIT SNOMED Code(s): 453619475 (2) COVID-19 Current Visit: Yes Status: Acute Code(s): U07.1 - COVID-19 SNOMED Code(s): 829300827 Plan: Patient with acute respiratory failure which is multifactorial in this patient with initial diagnosis of COVID-19 pneumonia in this patient did have significant worsening of his respiratory status requiring intubation, patient to continue with a dexamethasone Lovenox zinc and ascorbic acid along with empiric Zosyn, blood and sputum cultures Has been negative for any resistant pathogens So far and the patient white count is yahir Time with Patient: Less than 30
--- NOTE | 2021-05-23 15:48 | P.PN ---
Subjective Progress Note Date: 05/23/21 Principal diagnosis: COVID-19 pneumonia Interval history: Patient is a 70-year-old male presented to the hospital with acute respiratory failure in this but have a evidence of multifocal pneumonia secondary to COVID-19. Patient did have worsening of his respiratory status requiring intubation on 05/19/2021 On today's evaluation that is 05/23/2021, The patient remains to be afebrile, the patient is hemodynamically stable not requiring any pressor support, the patient FiO2 is currently stable at 40%, no significant purulent secretion through the ET , patient been tolerating his tube feeds and no diarrhea reported by the nursing staff Objective - Vital Signs Vital signs: Vital Signs Temp 97.7 F 05/23/21 12:00 Pulse 64 05/23/21 15:00 Resp 36 H 05/23/21 15:00 BP 125/74 05/22/21 07:00 Pulse Ox 98 05/23/21 15:00 Intake & Output 05/22/21 05/23/21 05/23/21 18:59 06:59 18:59 Intake Total 1862 1716 120 Output Total 755 620 60 Balance 1107 1096 60 Weight 65.2 kg 72.8 kg Intake: IV 1475 1605 120 Dextrose 5% in Water 1, 1080 120 000 ml @ 120 mls/hr IV . Q8H20M [facility] Rx#:[id number] Dextrose 5%-0.9% NaCl 1, 1100 300 000 ml @ 100 mls/hr IV . Q10H [facility] Rx#:[id number] Piperacillin-Tazobactam 3 175 25 .375 gm In Sodium Chloride 0.9% 100 ml @ 25 mls/hr IVPB Q8HR [facility] Rx# :[id number] Valproate Sodium 250 mg 200 200 In Sodium Chloride 0.9% 100 ml @ 100 mls/hr IVPB Q6HR@0300,0900,1500,2100 [facility] Rx#:[id number] Tube Feeding 297 81 Other 90 30 Output: Urine 755 620 60 Other: Voiding Method Indwelling Catheter Indwelling Catheter ABP, PAP, CO, CI - Last Documented Arterial Blood Pressure 125/62 - Exam General description is an elderly male intubated on the vent Respiratory system:Unlabored breathing, decreased intensity in breath sounds. No wheeze. Heart S1, S2. Regular rate and rhythm. Abdomen soft, no tenderness. Extremities: No edema feet - Labs CBC & Chem 7: 05/23/21 04:50 05/23/21 04:50 Labs: Abnormal Lab Results - Last 24 Hours (Table) 05/22/21 05/22/21 05/23/21 Range/Units 17:35 17:41 04:50 RBC 2.82 L (4.30-5.90) m/uL Hgb 8.9 L (13.0-17.5) gm/dL Hct 28.1 L (39.0-53.0) % Plt Count 107 L (150-450) k/uL ABG pO2 (83-108) mmHg ABG HCO3 (21-25) mmol/L ABG Total CO2 (19-24) mmol/L ABG O2 Saturation (94-97) % Sodium 148 H (137-145) mmol/L Chloride (98-107) mmol/L BUN (9-20) mg/dL Creatinine (0.66-1.25) mg/dL Glucose (74-99) mg/dL POC Glucose (mg/dL) 145 H (75-99) mg/dL Calcium (8.4-10.2) mg/dL Total Protein (6.3-8.2) g/dL Albumin (3.5-5.0) g/dL 05/23/21 05/23/21 05/23/21 Range/Units 04:50 05:32 11:27 RBC (4.30-5.90) m/uL Hgb (13.0-17.5) gm/dL Hct (39.0-53.0) % Plt Count (150-450) k/uL ABG pO2 136 H (83-108) mmHg ABG HCO3 26 H (21-25) mmol/L ABG Total CO2 27 H (19-24) mmol/L ABG O2 Saturation 99.4 H (94-97) % Sodium 147 H (137-145) mmol/L Chloride 118 H (98-107) mmol/L BUN 37 H (9-20) mg/dL Creatinine 1.44 H (0.66-1.25) mg/dL Glucose 140 H (74-99) mg/dL POC Glucose (mg/dL) 103 H (75-99) mg/dL Calcium 8.0 L (8.4-10.2) mg/dL Total Protein 4.6 L (6.3-8.2) g/dL Albumin 2.0 L (3.5-5.0) g/dL Microbiology - Last 24 Hours (Table) 05/17/21 22:00 Blood Culture - Preliminary Blood No Growth after 120 hours 05/19/21 18:56 Blood Culture - Preliminary Blood No Growth after 72 hours 05/19/21 18:56 Blood Culture - Preliminary Blood No Growth after 72 hours 05/19/21 Unknown Gram Stain - Final Sputum Sputum Culture - Final Romelia sp,not albicans/galbr Romelia albicans Assessment and Plan (1) Aspiration pneumonia Current Visit: Yes Status: Acute Code(s): J69.0 - PNEUMONITIS DUE TO INHALATION OF FOOD AND VOMIT SNOMED Code(s): 788162585 (2) COVID-19 Current Visit: Yes Status: Acute Code(s): U07.1 - COVID-19 SNOMED Code(s): 492657371 Plan: Patient with acute respiratory failure which is multifactorial in this patient with initial diagnosis of COVID-19 pneumonia in this patient did have significant worsening of his respiratory status requiring intubation and concern for possible aspiration pneumonitis, patient to continue with a dexamethasone Lovenox zinc and ascorbic acid along with empiric Zosyn, blood culture had been negative sputum showing Romelia more likely a colonizer and will monitor closely Time with Patient: Less than 30
--- NOTE | 2021-05-23 17:00 | P.GSCN ---
History of Present Illness Consult date: 05/23/21 History of present illness: CHIEF COMPLAINT: Shortness of breath HISTORY OF PRESENT ILLNESS: This is a 70-year-old male who presented to the ER on 05/17/2021 with shortness of breath and evidence of COVID-19 pneumonia. Patient required transfer to the ICU on 05/19/2021 due to worsening hypoxia and required to be intubated on 05/19/2021. Patient has been unable to wean from the vent. Surgical service has been consulted for tracheostomy and PEG tube placement. Patient is currently on FiO2 40% and PEEP of 5. PAST MEDICAL HISTORY: Coronary Artery Disease (CAD), COPD, GERD/Reflux, Pneumonia, dementia, schizoaffective disorder, chronic kidney disease, hyperlipidemia PAST SURGICAL HISTORY: None MEDICATIONS: See list. ALLERGIES: See list. SOCIAL HISTORY: No illicit drug use. REVIEW OF SYSTEMS: Unable to obtain. Patient intubated and sedated PHYSICAL EXAM: VITAL SIGNS: Reviewed GENERAL: no acute distress. HEENT: No sclera icterus. Moist buccal mucosa. Head is atraumatic, normocephalic. No nasal drainage. ABDOMEN: Soft. Nondistended. NEUROLOGIC: Patient on mechanical ventilation LABORATORY DATA: WBC 5.5 hemoglobin 8.9 platelets 107 Sodium 147 potassium 3.5 creatinine 1.44 Albumin 2.0 IMAGING: ASSESSMENT: 1. Acute hypoxic respiratory failure secondary to COVID-19 pneumonia with mechanical ventilation and difficulty weaning from the vent 2. Severe protein calorie malnutrition PLAN: -Patient is scheduled for tracheostomy and PEG tube placement on 05/26/[address] bill -Continue ICU management -Continue supportive care -We'll place patient's Plavix on hold for upcoming trach and PEG tube placement Thank you for this consultation Physician Pricer note has been reviewed by physician. Signing provider agrees with the documented findings, assessment, and plan of care. Past Medical History Past Medical History: Coronary Artery Disease (CAD), COPD, GERD/Reflux, Hyperlipidemia, Pneumonia Additional Past Medical History / Comment(s): schizoaffective, bipolar, baseline impaired/garbled speech, COPD, CAD, GERD, CKD 4 History of Any Multi-Drug Resistant Organisms: None Reported Past Surgical History: No Surgical Hx Reported Additional Past Surgical History / Comment(s): patient states he has never had surgery Past Anesthesia/Blood Transfusion Reactions: No Reported Reaction Additional Past Anesthesia/Blood Transfusion Reaction / Comm: patient states he has never received blood or anesthesia Past Psychological History: Bipolar, Schizoaffective Disorder, Schizophrenia Smoking Status: Current every day smoker Past Alcohol Use History: None Reported Past Drug Use History: None Reported - Past Family History Father History Unknown: Yes Medications and Allergies Home Medications Medication Instructions Recorded Confirmed Type Clopidogrel [Plavix] 75 mg PO DAILY 04/18/19 05/17/21 History Atorvastatin Calcium [Lipitor] 20 mg PO HS 05/29/20 05/17/21 History Divalproex ER [Depakote ER] 500 mg PO BID 05/29/20 05/17/21 History Midodrine HCl [ProAmatine] 10 mg PO TID 05/29/20 05/17/21 History Folic Acid 1 mg PO DAILY #30 tab 06/01/20 05/17/21 Rx Ferrous Sulfate [Iron (65 MG 325 mg PO DAILY 04/05/21 05/17/21 History Elemental)] OLANZapine [OLANZapine Odt] 5 mg PO DAILY 04/05/21 05/17/21 History OLANZapine [OLANZapine Odt] 20 mg PO HS 04/05/21 05/17/21 History predniSONE [Deltasone] 20 mg PO DAILY 05/17/21 05/17/21 History Allergies Allergy/AdvReac Type Severity Reaction Status Date / Time No Known Allergies Allergy Verified 05/17/21 15:33 Surgical - Exam Vital Signs Temp Pulse Resp BP Pulse Ox 96.5 F L 59 L 24 110/75 88 L 05/17/21 13:25 05/17/21 13:25 05/17/21 13:25 05/17/21 13:25 05/17/21 13:25 Results - Labs 05/23/21 04:50 05/23/21 04:50 Abnormal Lab Results - Last 24 Hours (Table) 05/22/21 05/22/21 05/23/21 Range/Units 17:35 17:41 04:50 RBC 2.82 L (4.30-5.90) m/uL Hgb 8.9 L (13.0-17.5) gm/dL Hct 28.1 L (39.0-53.0) % Plt Count 107 L (150-450) k/uL ABG pO2 (83-108) mmHg ABG HCO3 (21-25) mmol/L ABG Total CO2 (19-24) mmol/L ABG O2 Saturation (94-97) % Sodium 148 H (137-145) mmol/L Chloride (98-107) mmol/L BUN (9-20) mg/dL Creatinine (0.66-1.25) mg/dL Glucose (74-99) mg/dL POC Glucose (mg/dL) 145 H (75-99) mg/dL Calcium (8.4-10.2) mg/dL Total Protein (6.3-8.2) g/dL Albumin (3.5-5.0) g/dL 05/23/21 05/23/21 05/23/21 Range/Units 04:50 05:32 11:27 RBC (4.30-5.90) m/uL Hgb (13.0-17.5) gm/dL Hct (39.0-53.0) % Plt Count (150-450) k/uL ABG pO2 136 H (83-108) mmHg ABG HCO3 26 H (21-25) mmol/L ABG Total CO2 27 H (19-24) mmol/L ABG O2 Saturation 99.4 H (94-97) % Sodium 147 H (137-145) mmol/L Chloride 118 H (98-107) mmol/L BUN 37 H (9-20) mg/dL Creatinine 1.44 H (0.66-1.25) mg/dL Glucose 140 H (74-99) mg/dL POC Glucose (mg/dL) 103 H (75-99) mg/dL Calcium 8.0 L (8.4-10.2) mg/dL Total Protein 4.6 L (6.3-8.2) g/dL Albumin 2.0 L (3.5-5.0) g/dL Microbiology - Last 24 Hours (Table) 05/17/21 22:00 Blood Culture - Preliminary Blood No Growth after 120 hours 05/19/21 18:56 Blood Culture - Preliminary Blood No Growth after 72 hours 05/19/21 18:56 Blood Culture - Preliminary Blood No Growth after 72 hours 05/19/21 Unknown Gram Stain - Final Sputum Sputum Culture - Final Romelia sp,not albicans/galbr Romelia albicans Diabetes panel 05/22/21 05/23/21 Range/Units 17:35 04:50 Sodium 148 H 147 H (137-145) mmol/L Potassium 3.5 (3.5-5.1) mmol/L Chloride 118 H (98-107) mmol/L Carbon Dioxide 27 (22-30) mmol/L BUN 37 H (9-20) mg/dL Creatinine 1.44 H (0.66-1.25) mg/dL Glucose 140 H (74-99) mg/dL Calcium 8.0 L (8.4-10.2) mg/dL AST 18 (17-59) U/L ALT 14 (4-49) U/L Alkaline Phosphatase 46 (38-126) U/L Total Protein 4.6 L (6.3-8.2) g/dL Albumin 2.0 L (3.5-5.0) g/dL Calcium panel 05/23/21 Range/Units 04:50 Calcium 8.0 L (8.4-10.2) mg/dL Albumin 2.0 L (3.5-5.0) g/dL Pituitary panel 05/22/21 05/23/21 Range/Units 17:35 04:50 Sodium 148 H 147 H (137-145) mmol/L Potassium 3.5 (3.5-5.1) mmol/L Chloride 118 H (98-107) mmol/L Carbon Dioxide 27 (22-30) mmol/L BUN 37 H (9-20) mg/dL Creatinine 1.44 H (0.66-1.25) mg/dL Glucose 140 H (74-99) mg/dL Calcium 8.0 L (8.4-10.2) mg/dL Adrenal panel 05/22/21 05/23/21 Range/Units 17:35 04:50 Sodium 148 H 147 H (137-145) mmol/L Potassium 3.5 (3.5-5.1) mmol/L Chloride 118 H (98-107) mmol/L Carbon Dioxide 27 (22-30) mmol/L BUN 37 H (9-20) mg/dL Creatinine 1.44 H (0.66-1.25) mg/dL Glucose 140 H (74-99) mg/dL Calcium 8.0 L (8.4-10.2) mg/dL Total Bilirubin 0.3 (0.2-1.3) mg/dL AST 18 (17-59) U/L ALT 14 (4-49) U/L Alkaline Phosphatase 46 (38-126) U/L Total Protein 4.6 L (6.3-8.2) g/dL Albumin 2.0 L (3.5-5.0) g/dL
[2021-05-23] MEDS: ATORVASTATIN 20 MG TAB PO SCH (20:10)
[2021-05-23 23:47] LABS: Glucose,Whole Blood 170 mg/dL (75-99)
--- NOTE | 2021-05-23 23:53 | P.PN ---
Subjective Progress Note Date: 05/23/21 This is a 70-year-old male who was recently admitted with change in mental status and fall and also shortness of breath and acute COVID-19 pneumonia and being closely monitored. Patient was continued on high flow oxygen although respiratory status continued to deteriorate and an A team was called. Patient was brought to the ICU for close monitoring and x-ray showed some bilateral lower lobe pneumonia which appears unchanged compared to recent exam with no obvious heart failure. Patient was placed on mechanical vent and intubated and sedated and is being closely monitored. Multiple medical consultations including pulmonary and infectious disease following closely. 05/20/2021 Patient is seen in follow-up activity is to be closely monitored in the ICU. Blood pressure and heart rate has been extremely variable and patient is maintained on D10 in water along with norepinephrine and will continue. Pulmonary and infectious disease following closely. Patient continues with worsening kidney functions nephrology consulted and patient is being given a liter bolus for hypotension and repeat sodium level ordered. Patient also continues on Zosyn and ID following closely. Patient continues with low blood sugar readings as well and we'll continue D10 and close glucose monitoring. Chest x-ray shows some improvement in bibasilar infiltrates more so on the right and possibly developing small right pleural effusion. 05/21/2021 Patient is seen and evaluated this morning continues to be in the ICU with multiple medical consultations following. Patient is continued on IV antibiotics with ID following. Cultures continue to be negative and WBC is 8.5. Patient did have low grade temp today. Patient continues on mechanical vent and sedated. Chest xray similar to previous exam and will continue to monitor. Prognosis remains guarded. Patient also continued on norepinephrine. 05/22/2021 Patient is seen and evaluated today continues to be on mechanical vent with an FiO2 of 40% PEEP is 5. Patient continuing with weaning trials and assist mode on mechanical vent although patient continues to not follow commands per nursing staff. Per pulmonary industrial eng continued attempts at weaning. Chest x-ray shows chronic emphysematous changes and pulmonary fibrosis with moderate bilater al pleural effusions and bilateral multifocal increased opacification consistent with COVID-19 infection are all redemonstrated with no significant change from yesterday. Sputum culture finalized showing Romelia species not albicans, glabrata along with Romelia albicans and infectious disease is following. Patient continues on IV antibiotics in the form of Zosyn. Patient is currently off norepinephrine and receiving Solu-Cortef along with valproic acid and Depakote. Patient is continued on Lovenox for DVT prophylaxis. Patient also continues on D5 in water at 100 mL per hour. Blood gases are improving and pulmonary discussing possible extubation. 05/23/2021 Patient is seen this morning continues to be on mechanical vent with an FiO2 of 40 and a PEEP of 5 with continued weaning trials. Patient is off sedation and does open eyes to verbal stimuli although does not follow commands. Chest x-ray today shows chronic emphysematous and pulmonary fibrotic changes with small size bilateral pleural effusions and bilateral multifocal increased opacification is consistent with COVID-19 infection are again redemonstrated with no significant change from previous. General surgery consulted for possible trach and peg tube placement. Review of systems: Unable to obtain as patient is mechanically intubated and sedated Labs: WBC is 5.5, hemoglobin is 8.9, platelets are 107, sodium is 147, potassium 3.5, BUN 37, creatinine 1.44, calcium 8.0 Active Medications Acetaminophen (Acetaminophen Tab 325 Mg Tab) 650 mg PO Q6HR PRN PRN Reason: Mild Pain or Fever > 100.5 Last Admin: 05/18/21 23:16 Dose: 650 mg Documented by: Albuterol Sulfate (Albuterol Hfa Inhaler) 2 puff INHALATION RT-QID [facility] Last Admin: 05/23/21 12:19 Dose: 2 puff Documented by: Atorvastatin Calcium (Atorvastatin 20 Mg Tab) 20 mg PO HS [facility] Last Admin: 05/22/21 20:40 Dose: 20 mg Documented by: Chlorhexidine Gluconate (Chlorhexidine Gluconate 15 Ml Cup) 15 ml MUCOUS MEM BID [facility] Last Admin: 05/23/21 08:13 Dose: 15 ml Documented by: Clopidogrel Bisulfate (Clopidogrel 75 Mg Tab) 75 mg PO DAILY [facility] Last Admin: 05/23/21 08:13 Dose: 75 mg Documented by: Divalproex Sodium (Divalproex Er 500 Mg Tab.Er.24h) 500 mg PO BID [facility] Last Admin: 05/19/21 09:52 Dose: Not Given Documented by: Enoxaparin Sodium (Enoxaparin 40 Mg/0.4 Ml Syringe) 40 mg SQ DAILY [facility] Last Admin: 05/23/21 08:13 Dose: 40 mg Documented by: Ferrous Sulfate (Ferrous Sulfate 325 Mg Tab) 325 mg PO DAILY [facility] Last Admin: 05/23/21 08:13 Dose: 325 mg Documented by: Folic Acid (Folic Acid 1 Mg Tab) 1 mg PO DAILY [facility] Last Admin: 05/23/21 08:13 Dose: 1 mg Documented by: Hydrocortisone Sodium Succinate (Hydrocortisone Succinate 100 Mg/2 Ml Vial) 50 mg IV Q12HR [facility] Piperacillin Sod/Tazobactam (Sod 3.375 gm/ Sodium Chloride) 100 mls @ 25 mls/hr IVPB Q8HR [facility] Last Admin: 05/23/21 08:11 Dose: 25 mls/hr Documented by: Valproic Acid 250 mg/ Sodium (Chloride) 102.5 mls @ 100 mls/hr IVPB Q6HR@0300,0900,1500,2100 [facility] Last Admin: 05/23/21 08:14 Dose: 100 mls/hr Documented by: Dextrose/Water (Dextrose 5%-Water Iv Soln) 1,000 mls @ 150 mls/hr IV .Q6H40M [facility] Last Admin: 05/23/21 08:09 Dose: 150 mls/hr Documented by: Lorazepam (Lorazepam 2 Mg/Ml Inj) 1 mg IV Q4HR PRN PRN Reason: Anxiety Lorazepam (Lorazepam 2 Mg/Ml Inj) 2 mg IV Q4H PRN PRN Reason: Anxiety Last Admin: 05/22/21 17:46 Dose: 2 mg Documented by: Nystatin (Nystatin 100,000 Unit/Ml Susp 500,000 Unit/5 Ml Cup) 500,000 unit PO QID [facility] Last Admin: 05/23/21 08:14 Dose: 500,000 unit Documented by: Pantoprazole Sodium (Pantoprazole 40 Mg/10 Ml Vial) 40 mg IVP DAILY [facility] Last Admin: 05/23/21 08:14 Dose: 40 mg Documented by: Physical Exam: Gen: this is a 70-year-old male currently sedated and intubated. 40% mechanical ventilation with a PEEP of 5 HEENT: Head is atraumatic, normocephalic. Pupils equal, round. Sclerae is anicteric. NECK: Supple. No JVD. No lymphadenopathy. No thyromegaly. LUNGS: Diminished breath sounds bilaterally with coarse rhonchi and crackles noted. No intercostal retractions. HEART: S1, S2 are muffled ABDOMEN: Soft. Bowel sounds are present. No masses. No tenderness. EXTREMITIES: No pedal edema. No calf tenderness. NEUROLOGICAL: Patient is currently intubated and sedated Assessment: Acute COVID-19 infection with acute COVID-19 bilateral interstitial pneumonia, right more than left with acute hypoxic respiratory failure, now requiring mechanical ventilation Acute kidney injury secondary to acute tubular necrosis from septic shock Chronic kidney disease stage III secondary to nephrosclerosis Hypoglycemia Change in mental status, metabolic encephalopathy, multifactorial Falling, gait dysfunction Anemia, normocytic anemia of undetermined significance Hypernatremia from poor oral intake Hyperkalemia secondary to acute kidney injury Elevated d-dimer acute renal failure with dehydration history of coronary artery disease history of chronic obstructive pulmonary disease Gastroesophageal reflux disease history of bipolar, schizoaffective disorder and schizophrenia History of nicotine dependence Severe protein calorie malnutrition with a BMI of 19.1 Full code Plan: Recommend to continue with current medications and follow along closely with multiple medical consultations. Prognosis remains guarded with multiple complex medical issues noted. Patient continues on mechanical ventilation with an FiO2 of 40% and PEEP is 5. Patient is off sedation currently in attempting weaning trials that are unsuccessful and general surgery consulted for possible peg and trach placement that is being scheduled for Wednesday. Per nursing staff patient is not following commands responding appropriately. Recommend continue with current medications and patient has been maintained on IV antibiotics with infectious disease following.. Sputum culture showing Romelia albicans along with Romelia species. Most likely colonized. Chest x-ray reviewed as mentioned above. Recommend repeat labs in the morning. Nephrology following and sodium level mildly improving. Will continue on D5 and water. Again due to multiple complex medical issues prognosis is quite guarded. Objective - Vital Signs Vital signs: Vital Signs Temp 97.3 F L 05/23/21 04:00 Pulse 54 L 05/23/21 07:00 Resp 35 H 05/23/21 07:00 BP 125/74 05/22/21 07:00 Pulse Ox 96 05/23/21 07:00 Intake & Output 05/22/21 05/23/21 05/23/21 18:59 06:59 18:59 Intake Total 1862 1716 120 Output Total 755 620 60 Balance 1107 1096 60 Weight 65.2 kg Intake: IV 1475 1605 120 Dextrose 5% in Water 1, 1080 120 000 ml @ 120 mls/hr IV . Q8H20M [facility] Rx#:[id number] Dextrose 5%-0.9% NaCl 1, 1100 300 000 ml @ 100 mls/hr IV . Q10H [facility] Rx#:[id number] Piperacillin-Tazobactam 3 175 25 .375 gm In Sodium Chloride 0.9% 100 ml @ 25 mls/hr IVPB Q8HR [facility] Rx# :[id number] Valproate Sodium 250 mg 200 200 In Sodium Chloride 0.9% 100 ml @ 100 mls/hr IVPB Q6HR@0300,0900,1500,2100 [facility] Rx#:[id number] Tube Feeding 297 81 Other 90 30 Output: Urine 755 620 60 Other: Voiding Method Indwelling Catheter Indwelling Catheter ABP, PAP, CO, CI - Last Documented Arterial Blood Pressure 118/53 - Labs CBC & Chem 7: 05/23/21 04:50 05/23/21 17:00 Labs: Abnormal Lab Results - Last 24 Hours (Table) 05/22/21 05/22/21 05/22/21 Range/Units 11:54 13:08 17:35 RBC (4.30-5.90) m/uL Hgb (13.0-17.5) gm/dL Hct (39.0-53.0) % Plt Count (150-450) k/uL ABG pO2 (83-108) mmHg ABG HCO3 26 H (21-25) mmol/L ABG Total CO2 27 H (19-24) mmol/L ABG O2 Saturation 97.8 H (94-97) % Sodium 148 H (137-145) mmol/L Chloride (98-107) mmol/L BUN (9-20) mg/dL Creatinine (0.66-1.25) mg/dL Glucose (74-99) mg/dL POC Glucose (mg/dL) 142 H (75-99) mg/dL Calcium (8.4-10.2) mg/dL Total Protein (6.3-8.2) g/dL Albumin (3.5-5.0) g/dL 05/22/21 05/23/21 05/23/21 Range/Units 17:41 04:50 04:50 RBC 2.82 L (4.30-5.90) m/uL Hgb 8.9 L (13.0-17.5) gm/dL Hct 28.1 L (39.0-53.0) % Plt Count 107 L (150-450) k/uL ABG pO2 (83-108) mmHg ABG HCO3 (21-25) mmol/L ABG Total CO2 (19-24) mmol/L ABG O2 Saturation (94-97) % Sodium 147 H (137-145) mmol/L Chloride 118 H (98-107) mmol/L BUN 37 H (9-20) mg/dL Creatinine 1.44 H (0.66-1.25) mg/dL Glucose 140 H (74-99) mg/dL POC Glucose (mg/dL) 145 H (75-99) mg/dL Calcium 8.0 L (8.4-10.2) mg/dL Total Protein 4.6 L (6.3-8.2) g/dL Albumin 2.0 L (3.5-5.0) g/dL 05/23/21 Range/Units 05:32 RBC (4.30-5.90) m/uL Hgb (13.0-17.5) gm/dL Hct (39.0-53.0) % Plt Count (150-450) k/uL ABG pO2 136 H (83-108) mmHg ABG HCO3 26 H (21-25) mmol/L ABG Total CO2 27 H (19-24) mmol/L ABG O2 Saturation 99.4 H (94-97) % Sodium (137-145) mmol/L Chloride (98-107) mmol/L BUN (9-20) mg/dL Creatinine (0.66-1.25) mg/dL Glucose (74-99) mg/dL POC Glucose (mg/dL) (75-99) mg/dL Calcium (8.4-10.2) mg/dL Total Protein (6.3-8.2) g/dL Albumin (3.5-5.0) g/dL Microbiology - Last 24 Hours (Table) 05/17/21 22:00 Blood Culture - Preliminary Blood No Growth after 120 hours 05/19/21 18:56 Blood Culture - Preliminary Blood No Growth after 72 hours 05/19/21 18:56 Blood Culture - Preliminary Blood No Growth after 72 hours 05/19/21 Unknown Gram Stain - Final Sputum Sputum Culture - Final Romelia sp,not albicans/galbr Romelia albicans
[2021-05-24] MEDS: PIPERACILLIN-TAZOBACTAM 3.375 GM in SODIUM CHLORIDE 0.9% 100 ML IVPB SCH ×4 (00:39→23:04)
[2021-05-24] MEDS: VALPROATE SODIUM 250 MG in SODIUM CHLORIDE 0.9% 100 ML IVPB SCH ×4 (03:45→20:51)
[2021-05-24] MEDS: DEXTROSE 5% IN WATER 1,000 ML IV SCH ×3 (03:46→19:26)
[2021-05-24 04:21] LABS: Basophils % (A) 0 %; Eosinophils % (A) 0 %; HCT 27.1 % (39.0-53.0); HGB 9.1 gm/dL (13.0-17.5); Lymphocytes # (A) 0.3 k/uL (1.0-4.8); Lymphocytes % (A) 4 %; MCH 32.7 pg (25.0-35.0); MCHC 33.5 g/dL (31.0-37.0); MCV 97.5 fL (80.0-100.0); Mean Platelet Volume 9.5; Monocytes # (A) 0.2 k/uL (0-1.0); Monocytes % (A) 4 %; Neutrophils # (A) 6.3 k/uL (1.3-7.7); Neutrophils % (A) 91 %; Platelet Count 129 k/uL (150-450); RBC 2.78 m/uL (4.30-5.90); RDW 14.7 % (11.5-15.5)
[2021-05-24 04:59] LABS: C Reactive Protein 1.7 mg/dL (<1.0); Calcium 7.8 mg/dL (8.4-10.2); Potassium 3.6 mmol/L (3.5-5.1); Total Bilirubin 0.3 mg/dL (0.2-1.3); Total Protein 4.6 g/dL (6.3-8.2)
[2021-05-24 05:45] LABS: ABG Base Excess 3.3 mmol/L; ABG HCO3 28 mmol/L (21-25); ABG Oxygen Saturation 98.1 % (94-97); ABG PCO2 41 mmHg (35-45); ABG PH 7.44 (7.35-7.45); ABG PO2 96 mmHg (83-108); ABG TCO2 29 mmol/L (19-24); Allen Test Performed? Yes
[2021-05-24 06:07] LABS: Glucose,Whole Blood 137 mg/dL (75-99)
--- NOTE | 2021-05-24 07:03 | XR ---
EXAMINATION TYPE: XR chest 1V portable DATE OF EXAM: 05/24/2021 5:47 AM COMPARISON:Chest radiograph from one day prior. TECHNIQUE: Frontal view of the chest. CLINICAL INDICATION:Male, 70 years old with history of covid; FINDINGS: Lungs/Pleura: Similar multifocal airspace opacities. No evidence of pneumothorax or pleural effusion. Pulmonary vascularity: Unremarkable. Heart/mediastinum: Cardiomediastinal silhouette is unremarkable. Musculoskeletal: Multiple level degenerative disc disease changes seen throughout the spine. Lines/Tubes: Endotracheal tube with distal tip 3.5 cm above the kerri Nasogastric tube with its distal tip and side-port projecting under the diaphragm. IMPRESSION: 1. Similar multifocal airspace opacities. 2. Stable support lines and tubes.
[2021-05-24] MEDS: ALBUTEROL HFA INHALER INHALATION SCH ×4 (08:21→20:13)
[2021-05-24] MEDS: FOLIC ACID 1 MG TAB PO SCH (08:24)
[2021-05-24] MEDS: FERROUS SULFATE 325 MG TAB PO SCH (08:24)
[2021-05-24] MEDS: ENOXAPARIN 40 MG/0.4 ML SYRINGE SQ SCH (08:24)
[2021-05-24] MEDS: PANTOPRAZOLE 40 MG/10 ML VIAL IVP SCH (08:24)
[2021-05-24] MEDS: HYDROCORTISONE SUCCINATE 100 MG/2 ML VIAL IV SCH ×2 (08:24→20:50)
[2021-05-24] MEDS: CHLORHEXIDINE GLUCONATE 15 ML CUP MUCOUS MEM SCH (08:24)
[2021-05-24] MEDS: NYSTATIN 100,000 UNIT/ML SUSP 500,000 UNIT/5 ML CUP PO SCH ×4 (08:24→20:51)
[2021-05-24] MEDS ORDERED: Potassium Replacement Protocol 1 EACH MISC MISCELLANE PRN (11:13)
[2021-05-24] MEDS ORDERED: POTASSIUM BICARBONATE/CIT AC 20 MEQ TABLET.EFF NG-TUBE SCH (12:00)
[2021-05-24 12:07] LABS: Glucose,Whole Blood 139 mg/dL (75-99)
[2021-05-24 12:17] LABS: ABG Base Excess 2.7 mmol/L; ABG HCO3 28 mmol/L (21-25); ABG Oxygen Saturation 97.6 % (94-97); ABG PCO2 45 mmHg (35-45); ABG PH 7.39 (7.35-7.45); ABG PO2 96 mmHg (83-108); ABG TCO2 29 mmol/L (19-24); Allen Test Performed? Yes
--- NOTE | 2021-05-24 12:45 | P.PN ---
Progress Note - Text Progress Note Date: 05/24/21 Patient has improved side. He has CPAP in today. On exam vitals are stable. Abdomen soft. Improving respiratory failure. Patient is tentatively scheduled for tracheostomy and PEG tube placement on Wednesday if needed.
[2021-05-24] MEDS: POTASSIUM CHLORIDE 10 MEQ in WATER FOR INJECTION 1 100ML.BAG IVPB SCH ×2 (12:55→14:24)
--- NOTE | 2021-05-24 13:58 | P.PN ---
Subjective Progress Note Date: 05/24/21 Follow-up for acute kidney injury and hypernatremia. Objective - Vital Signs Vital signs: Vital Signs Temp 97.5 F L 05/24/21 12:00 Pulse 57 L 05/24/21 13:00 Resp 12 05/24/21 13:00 BP 100/50 05/24/21 13:00 Pulse Ox 97 05/24/21 13:00 Intake & Output 05/23/21 05/24/21 05/24/21 18:59 06:59 18:59 Intake Total 2502 2569 1065 Output Total 740 990 330 Balance 1762 1579 735 Weight 72.8 kg 71.9 [place]: [place] [address] 900 Dextrose 5% in Water 1739 1800 900 000 ml @ 150 mls/hr IV . Q6H40M [facility] Rx#:[id number] Piperacillin-Tazobactam 3 175 125 .375 gm In Sodium Chloride 0.9% 100 ml @ 25 mls/hr IVPB Q8HR [facility] Rx# :[id number] Valproate Sodium 250 mg 200 200 In Sodium Chloride 0.9% 100 ml @ 100 mls/hr IVPB Q6HR@0300,0900,1500,2100 [facility] Rx#:[id number] Tube Feeding 297 324 135 Other 90 120 30 Output: Urine 740 990 330 Other: Voiding Method Indwelling Catheter Indwelling Catheter Indwelling Catheter ABP, PAP, CO, CI - Last Documented Arterial Blood Pressure 115/47 - Exam COVID-19 isolation. Refer to primary team exam. - Labs CBC & Chem 7: 05/24/21 04:00 05/24/21 04:00 Labs: Abnormal Lab Results - Last 24 Hours (Table) 05/23/21 05/24/21 05/24/21 Range/Units 23:45 04:00 04:00 RBC 2.78 L (4.30-5.90) m/uL Hgb 9.1 L (13.0-17.5) gm/dL Hct 27.1 L (39.0-53.0) % Plt Count 129 L (150-450) k/uL Lymphocytes # 0.3 L (1.0-4.8) k/uL D-Dimer 0.86 H (<0.60) mg/L FEU ABG HCO3 (21-25) mmol/L ABG Total CO2 (19-24) mmol/L ABG O2 Saturation (94-97) % Chloride (98-107) mmol/L BUN (9-20) mg/dL Creatinine (0.66-1.25) mg/dL Glucose (74-99) mg/dL POC Glucose (mg/dL) 170 H (75-99) mg/dL Calcium (8.4-10.2) mg/dL C-Reactive Protein (<1.0) mg/dL Total Protein (6.3-8.2) g/dL Albumin (3.5-5.0) g/dL 05/24/21 05/24/21 05/24/21 Range/Units 04:00 05:40 06:05 RBC (4.30-5.90) m/uL Hgb (13.0-17.5) gm/dL Hct (39.0-53.0) % Plt Count (150-450) k/uL Lymphocytes # (1.0-4.8) k/uL D-Dimer (<0.60) mg/L FEU ABG HCO3 28 H (21-25) mmol/L ABG Total CO2 29 H (19-24) mmol/L ABG O2 Saturation 98.1 H (94-97) % Chloride 113 H (98-107) mmol/L BUN 33 H (9-20) mg/dL Creatinine 1.28 H (0.66-1.25) mg/dL Glucose 139 H (74-99) mg/dL POC Glucose (mg/dL) 137 H (75-99) mg/dL Calcium 7.8 L (8.4-10.2) mg/dL C-Reactive Protein 1.7 H (<1.0) mg/dL Total Protein 4.6 L (6.3-8.2) g/dL Albumin 2.0 L (3.5-5.0) g/dL 05/24/21 05/24/21 Range/Units 12:05 12:05 RBC (4.30-5.90) m/uL Hgb (13.0-17.5) gm/dL Hct (39.0-53.0) % Plt Count (150-450) k/uL Lymphocytes # (1.0-4.8) k/uL D-Dimer (<0.60) mg/L FEU ABG HCO3 28 H (21-25) mmol/L ABG Total CO2 29 H (19-24) mmol/L ABG O2 Saturation 97.6 H (94-97) % Chloride (98-107) mmol/L BUN (9-20) mg/dL Creatinine (0.66-1.25) mg/dL Glucose (74-99) mg/dL POC Glucose (mg/dL) 139 H (75-99) mg/dL Calcium (8.4-10.2) mg/dL C-Reactive Protein (<1.0) mg/dL Total Protein (6.3-8.2) g/dL Albumin (3.5-5.0) g/dL Microbiology - Last 24 Hours (Table) 05/17/21 22:00 Blood Culture - Final Blood No Growth after 144 hours 05/19/21 18:56 Blood Culture - Preliminary Blood No Growth after 96 hours 05/19/21 18:56 Blood Culture - Preliminary Blood No Growth after 96 hours Assessment and Plan Assessment: #1 acute kidney injury secondary to hemodynamic ATN. Peak creatinine was 2.07. #2 chronic kidney disease stage III A secondary to nephrosclerosis with a baseline creatinine of 1.2-1.4 MG per DL. #3 COVID-19 pneumonia #4 hypernatremia secondary to volume depletion #5 hyperkalemia secondary to acute kidney injury, resolved Plan: #1 continue with D5 water, decrease to 75 ML's an hour. #2 renal function stable around baseline. Replace electrolytes as per ICU protocol #3 ICU care.
--- NOTE | 2021-05-24 14:15 | P.PN ---
Subjective Progress Note Date: 05/24/21 Principal diagnosis: Acute hypoxic respiratory failure secondary to acute COVID-19 pneumonia On 05/23/2021 patient seen in follow-up in the intensive care unit. He remains intubated, on mechanical ventilator, currently on assist control mode of ventilation with a rate of 36, tidal volume 375, FiO2 of 40% and PEEP of 5. This morning's blood gas shows pO2 of 136, pCO2 of 40, and pH of 7.42, this was done and above-mentioned vent settings. Today's chest x-ray has been reviewed showing chronic emphysematous and pulmonary fibrotic changes with small bilateral pleural effusions and bilateral multifocal opacities, without significant change compared to the prior study. Today's labs have been reviewed, white blood cell count is 5.5, hemoglobin is 8.9, sodium is 147, improving potassium is 3.5, chloride is 118, CO2 is 27, BUN 37, creatinine is 1.44. Patient is receiving D5W 1 50 ML per hour, nephrology is managing, he remains on hydrocortisone 100 mg every 8 hours, his been off vasopressor support for 48 hours. He has had no fever or chills. He remains on Zosyn. Sputum culture showed Romelia species, blood cultures have been negative. Neurologically patient has been off sedation for the past 24 hours. However patient is not following commands, although he is awake, at times he becomes restless, his been getting intermittent doses of when necessary on as-needed basis. We understand patient has underlying history of dementia however his baseline mental status is not known to us, his level of consciousness is certainly improved, however patient has not been able to follow any instructions. And for that reason patient has not been able to tolerate weaning trials, last night he had to be placed on assist-control mode of ventilation because he was extremely anxious, she did tolerate pressure support of 14 and IMV of 10 for a couple of hours, however became very agitated, and was placed back on assist control mode of ventilation. he is tolerating tube feedings. Patient was reevaluated today on 05/24/2021, remains intubated and mechanically ventilated. Patient has been off sedation for the last few days, and he is on assist control rate of 56 tidal volume 375 FiO2 40% PEEP of 5. ABG today showed a pO2 of 96 pCO2 41 pH of 7.44. His electrolytes are normal, BUN is 33 creatinine is 1.28, his chest x-ray is showing improvement in his by basilar infiltrates. Patient is awake, he is actually responsive to all stimuli, squeezes hands, wiggling toes, sticks out tongue up on request, patient is generally weak however. Hence I have recommended that the patient goes on a pressure support of 8 and CPAP, and if tolerated, may consider weaning and extubating this patient today. Patient remains on antibiotics, he is receiving Zosyn. Objective - Vital Signs Vital signs: Vital Signs Temp 97.5 F L 05/24/21 12:00 Pulse 57 L 05/24/21 13:00 Resp 12 05/24/21 13:00 BP 100/50 05/24/21 13:00 Pulse Ox 97 05/24/21 13:00 Intake & Output 05/23/21 05/24/21 05/24/21 18:59 06:59 18:59 Intake Total 2502 2569 1065 Output Total 740 990 330 Balance 1762 1579 735 Weight 72.8 kg 71.9 kg Intake: IV 5 2125 900 Dextrose 5% in Water 1, 1740 1800 900 000 ml @ 150 mls/hr IV . Q6H40M [facility] Rx#:[id number] Piperacillin-Tazobactam 3 175 125 .375 gm In Sodium Chloride 0.9% 100 ml @ 25 mls/hr IVPB Q8HR [facility] Rx# :[id number] Valproate Sodium 250 mg 200 200 In Sodium Chloride 0.9% 100 ml @ 100 mls/hr IVPB Q6HR@0300,0900,1500,2100 [facility] Rx#:[id number] Tube Feeding 297 324 135 Other 90 120 30 Output: Urine 740 990 330 Other: Voiding Method Indwelling Catheter Indwelling Catheter Indwelling Catheter ABP, PAP, CO, CI - Last Documented Arterial Blood Pressure 115/47 - Exam GENERAL EXAM: Revealed a 70-year-old white male, frail looking, chronically ill, intubated and mechanically ventilated. HEAD: Normocephalic/atraumatic. Orogastric tube and endotracheal tube are intact. HEENT: PERRLA, EOMI, anicteric, no neck masses no JVD, moist mucous membranes. CHEST: No chest wall deformity. Symmetrical expansion. LUNGS: Minimal crackles at the bases no rhonchi and no wheezes. CVS: Normal S1 and S2, no S3 gallop. guarding or rigidity. EXTREMITIES: No clubbing, Abdomen: Nontender no megaly no rebound. MUSCULOSKELETAL: Muscle strength and tone normal. SKIN: No rashes CENTRAL NERVOUS SYSTEM: awake, follows instructions, generally weak. . - Labs CBC & Chem 7: 05/24/21 04:00 05/24/21 04:00 Labs: Abnormal Lab Results - Last 24 Hours (Table) 05/23/21 05/24/21 05/24/21 Range/Units 23:45 04:00 04:00 RBC 2.78 L (4.30-5.90) m/uL Hgb 9.1 L (13.0-17.5) gm/dL Hct 27.1 L (39.0-53.0) % Plt Count 129 L (150-450) k/uL Lymphocytes # 0.3 L (1.0-4.8) k/uL D-Dimer 0.86 H (<0.60) mg/L FEU ABG HCO3 (21-25) mmol/L ABG Total CO2 (19-24) mmol/L ABG O2 Saturation (94-97) % Chloride (98-107) mmol/L BUN (9-20) mg/dL Creatinine (0.66-1.25) mg/dL Glucose (74-99) mg/dL POC Glucose (mg/dL) 170 H (75-99) mg/dL Calcium (8.4-10.2) mg/dL C-Reactive Protein (<1.0) mg/dL Total Protein (6.3-8.2) g/dL Albumin (3.5-5.0) g/dL 05/24/21 05/24/21 05/24/21 Range/Units 04:00 05:40 06:05 RBC (4.30-5.90) m/uL Hgb (13.0-17.5) gm/dL Hct (39.0-53.0) % Plt Count (150-450) k/uL Lymphocytes # (1.0-4.8) k/uL D-Dimer (<0.60) mg/L FEU ABG HCO3 28 H (21-25) mmol/L ABG Total CO2 29 H (19-24) mmol/L ABG O2 Saturation 98.1 H (94-97) % Chloride 113 H (98-107) mmol/L BUN 33 H (9-20) mg/dL Creatinine 1.28 H (0.66-1.25) mg/dL Glucose 139 H (74-99) mg/dL POC Glucose (mg/dL) 137 H (75-99) mg/dL Calcium 7.8 L (8.4-10.2) mg/dL C-Reactive Protein 1.7 H (<1.0) mg/dL Total Protein 4.6 L (6.3-8.2) g/dL Albumin 2.0 L (3.5-5.0) g/dL 05/24/21 05/24/21 Range/Units 12:05 12:05 RBC (4.30-5.90) m/uL Hgb (13.0-17.5) gm/dL Hct (39.0-53.0) % Plt Count (150-450) k/uL Lymphocytes # (1.0-4.8) k/uL D-Dimer (<0.60) mg/L FEU ABG HCO3 28 H (21-25) mmol/L ABG Total CO2 29 H (19-24) mmol/L ABG O2 Saturation 97.6 H (94-97) % Chloride (98-107) mmol/L BUN (9-20) mg/dL Creatinine (0.66-1.25) mg/dL Glucose (74-99) mg/dL POC Glucose (mg/dL) 139 H (75-99) mg/dL Calcium (8.4-10.2) mg/dL C-Reactive Protein (<1.0) mg/dL Total Protein (6.3-8.2) g/dL Albumin (3.5-5.0) g/dL Microbiology - Last 24 Hours (Table) 05/17/21 22:00 Blood Culture - Final Blood No Growth after 144 hours 05/19/21 18:56 Blood Culture - Preliminary Blood No Growth after 96 hours 05/19/21 18:56 Blood Culture - Preliminary Blood No Growth after 96 hours Assessment and Plan Assessment: #1. Acute hypoxic respiratory failure related to acute COVID-19 pneumonia, and possibility of bacterial infection/aspiration related pneumonia is not entirely excluded. Patient was brought into the emergency department on 05/17/2021 per EMS, patient is a poor historian, reportedly has history of bipolar disease and dementia. Came in primarily for evaluation of altered mental status. Transferred from [place] emergency department for COVID-19 related pneumonia. The patient was taken to the hospital in [place] 4 days prior to this admission and the symptom onset was probably even prior to that. Exact onset of symptoms is not known. Patient was transferred to the intensive care unit on 05/19/2021 for worsening hypoxia, and hypercapnia, and altered mental status, and was intubated on 05/19/2021 weaning from mechanical ventilation and was difficult, mostly because of the patient's mental status, however today considering the patient is awake, off sedation, will try pressure support mode of mechanical ventilation and CPAP, may extubate the patient today. #2. Acute hypercapnic respiratory failure, related to acute aspiration, and p ossible COVID-19 pneumonia, intubated #3. Hypotension, related to dehydration, and possibility of septic shock is not excluded. Patient remains on norepinephrine for vasopressor support, serum ryan isol level was only 7, stressed of hydrocortisone started, and hypotension is currently resolved and patient is off vasopressor support #4. Altered mental status with worsening from baseline #5. History of dementia and schizoaffective disorder #6. Acute dehydration and hypernatremia, on the D5W at 100 ML per hour, improving #7. Chronic stage 3 kidney disease #8. COPD #9. History of coronary artery disease #10. GERD/reflux #11. Hyperlipidemia #12. Acute kidney injury related to ATN, and dehydration, patient continues on IV hydration and continues to receive fluid boluses #13. Hyperkalemia related to [place], resolved #14. Hypoglcemia, was placed on D10 at 100 ml, will start tube feeds today. Blood sugars improved recommendation: Will try patient on pressure support and CPAP, and if tolerated may extubate the patient today. Continue antibiotics. Continue bronchodilators. Continue IV fluids, patient is now on D5W, renal profile is improving and sodium is improving. Continue nutritional support. Continue GI and DVT prophylaxis. Continue COVID-19 cocktail. Will consider weaning and possibly extubation in the next hour or so depending on his tolerance to pressure support and CPAP, and depending on his next ABG. Remains critically ill, agent will be kept in the ICU. Critical care time is over 30 minutes Time with Patient: Greater than 30
--- NOTE | 2021-05-24 15:19 | P.PN ---
Subjective Progress Note Date: 05/24/21 This is a 70-year-old male who was recently admitted with change in mental status and fall and also shortness of breath and acute COVID-19 pneumonia and being closely monitored. Patient was continued on high flow oxygen although respiratory status continued to deteriorate and an A team was called. Patient was brought to the ICU for close monitoring and x-ray showed some bilateral lower lobe pneumonia which appears unchanged compared to recent exam with no obvious heart failure. Patient was placed on mechanical vent and intubated and sedated and is being closely monitored. Multiple medical consultations including pulmonary and infectious disease following closely. 05/20/2021 Patient is seen in follow-up activity is to be closely monitored in the ICU. Blood pressure and heart rate has been extremely variable and patient is maintained on D10 in water along with norepinephrine and will continue. Pulmonary and infectious disease following closely. Patient continues with worsening kidney functions nephrology consulted and patient is being given a liter bolus for hypotension and repeat sodium level ordered. Patient also continues on Zosyn and ID following closely. Patient continues with low blood sugar readings as well and we'll continue D10 and close glucose monitoring. Chest x-ray shows some improvement in bibasilar infiltrates more so on the right and possibly developing small right pleural effusion. 05/21/2021 Patient is seen and evaluated this morning continues to be in the ICU with multiple medical consultations following. Patient is continued on IV antibiotics with ID following. Cultures continue to be negative and WBC is 8.5. Patient did have low grade temp today. Patient continues on mechanical vent and sedated. Chest xray similar to previous exam and will continue to monitor. Prognosis remains guarded. Patient also continued on norepinephrine. 05/22/2021 Patient is seen and evaluated today continues to be on mechanical vent with an FiO2 of 40% PEEP is 5. Patient continuing with weaning trials and assist mode on mechanical vent although patient continues to not follow commands per nursing staff. Per pulmonary field marketing manager continued attempts at weaning. Chest x-ray shows chronic emphysematous changes and pulmonary fibrosis with moderate bilateral pleural effusions and bilateral multifocal increased opacification consistent with COVID-19 infection are all redemonstrated with no significant change from yesterday. Sputum culture finalized showing Romelia species not albicans, glabrata along with Romelia albicans and infectious disease is fol lowing. Patient continues on IV antibiotics in the form of Zosyn. Patient is currently off norepinephrine and receiving Solu-Cortef along with valproic acid and Depakote. Patient is continued on Lovenox for DVT prophylaxis. Patient also continues on D5 in water at 100 mL per hour. Blood gases are improving and pulmonary discussing possible extubation. 05/23/2021 Patient is seen this morning continues to be on mechanical vent with an FiO2 of 40 and a PEEP of 5 with continued weaning trials. Patient is off sedation and does open eyes to verbal stimuli although does not follow commands. Chest x-ray today shows chronic emphysematous and pulmonary fibrotic changes with small size bilateral pleural effusions and bilateral multifocal increased opacification is consistent with COVID-19 infection are again redemonstrated with no significant change from previous. General surgery consulted for possible trach and peg tube placement. Labs: WBC is 5.5, hemoglobin is 8.9, platelets are 107, sodium is 147, potassium 3.5, BUN 37, creatinine 1.44, calcium 8.0 05/24/2021 Patient with spontaneous eye opening during assessment, eyes are tracking, however when asked to squeeze fingers patient unable to do so and did not wiggle toes when asked. He was not responsive to commands or yes or no questions. Continues in the ICU on 5L NC with an oxygen saturation of 91%. He is afebrile, Heart rate is in the 40-50's dropping into the mid 30's. Unclear whether patient is in a heart block, nurse reports HR of 30's seems to be when he is sleeping. EKG will try to be obtained when he is in the 30's. Respirations are 23, blood pressure 135/55. Chest xray today remains unchanged. Possible trach and PEG tube wednesday if needed. Labs today show WBC 7.0, hgb 9.1, D-dimer 0.86, sodium 142, potassium 3.6, BUN 33, creatinine 1.28, glucose in the 130s, calcium 7.8, CRP 1.7, total protein 4.6, albumin 2.0. Multiple consultations. Prognosis remains guarded. Review of systems: Unable to obtain as patient is unable to answer and has not responded to yes or no questions although appears more alert. Physical Exam: Gen: this is a 70-year-old male currently extubated and on nasal cannula, still minimally responsive HEENT: Head is atraumatic, normocephalic. Pupils equal, round. Sclerae is anicteric. NECK: Supple. No JVD. No lymphadenopathy. No thyromegaly. LUNGS: Diminished breath sounds bilaterally with coarse rhonchi and crackles noted. No intercostal retractions. HEART: S1, S2 are muffled ABDOMEN: Soft. Bowel sounds are present. No masses. No tenderness. EXTREMITIES: No pedal edema. No calf tenderness. NEUROLOGICAL: Patient is currently intubated and sedated Assessment: Acute COVID-19 infection with acute COVID-19 bilateral interstitial pneumonia, right more than left with acute hypoxic respiratory failure, now requiring mechanical ventilation with extubation on 05/24/2021, now on 5L NC. Acute kidney injury secondary to acute tubular necrosis from septic shock, creatinine improving. Chronic kidney disease stage III secondary to nephrosclerosis Hypoglycemia Change in mental status, metabolic encephalopathy, multifactorial Falling, gait dysfunction Anemia, normocytic anemia of undetermined significance Hypernatremia from poor oral intake Hyperkalemia secondary to acute kidney injury Elevated d-dimer history of coronary artery disease history of chronic obstructive pulmonary disease Gastroesophageal reflux disease history of bipolar, schizoaffective disorder and schizophrenia History of nicotine dependence Severe protein calorie malnutrition with a BMI of 19.1 Full code Plan: Recommend to continue with current medications and follow along closely with multiple medical consultations. Prognosis remains guarded with multiple complex medical issues noted. Patient was able to be extubated today and is now on nasal cannula. He is showing signs of neurological improvement as he has spontaneous eye opening with tracking. Nutritional support started today, tentative for PEG and Trach on wednesday if needed. Recommend continue with current medications and patient has been maintained on IV antibiotics with infectious disease following.. Sputum culture showing Romelia albicans along with Romelia species. Most likely colonized. Chest x-ray reviewed as mentioned above. Recommend repeat labs in the morning. Nephrology following and sodium level mildly impro ving. Will continue on D5 and water. Again due to multiple complex medical issues prognosis is quite guarded. Objective - Vital Signs Vital signs: Vital Signs Temp 97.6 F 05/24/21 07:30 Pulse 41 L 05/24/21 10:30 Resp 36 H 05/24/21 10:30 BP 102/60 05/24/21 10:30 Pulse Ox 99 05/24/21 10:30 Intake & Output 05/23/21 05/24/21 05/24/21 18:59 06:59 18:59 Intake Total 2502 2569 738 Output Total 740 990 255 Balance 1762 9839 483 Weight 72.8 kg 71.[place]: [place] [address] 600 Dextrose 5% in Water 1739 1800 600 000 ml @ 150 mls/hr IV . Q6H40M [facility] Rx#:[id number] Piperacillin-Tazobactam 3 175 125 .375 gm In Sodium Chloride 0.9% 100 ml @ 25 mls/hr IVPB Q8HR [facility] Rx# :[id number] Valproate Sodium 250 mg 200 200 In Sodium Chloride 0.9% 100 ml @ 100 mls/hr IVPB Q6HR@0300,0900,1500,2100 [facility] Rx#:[id number] Tube Feeding 297 324 108 Other 90 120 30 Output: Urine 740 990 255 Other: Voiding Method Indwelling Catheter Indwelling Catheter Indwelling Catheter ABP, PAP, CO, CI - Last Documented Arterial Blood Pressure 118/51 - Labs CBC & Chem 7: 05/24/21 04:00 05/24/21 04:00 Labs: Abnormal Lab Results - Last 24 Hours (Table) 05/23/21 05/24/21 05/24/21 Range/Units 23:45 04:00 04:00 RBC 2.78 L (4.30-5.90) m/uL Hgb 9.1 L (13.0-17.5) gm/dL Hct 27.1 L (39.0-53.0) % Plt Count 129 L (150-450) k/uL Lymphocytes # 0.3 L (1.0-4.8) k/uL D-Dimer 0.86 H (<0.60) mg/L FEU ABG HCO3 (21-25) mmol/L ABG Total CO2 (19-24) mmol/L ABG O2 Saturation (94-97) % Chloride (98-107) mmol/L BUN (9-20) mg/dL Creatinine (0.66-1.25) mg/dL Glucose (74-99) mg/dL POC Glucose (mg/dL) 170 H (75-99) mg/dL Calcium (8.4-10.2) mg/dL C-Reactive Protein (<1.0) mg/dL Total Protein (6.3-8.2) g/dL Albumin (3.5-5.0) g/dL 05/24/21 05/24/21 05/24/21 Range/Units 04:00 05:40 06:05 RBC (4.30-5.90) m/uL Hgb (13.0-17.5) gm/dL Hct (39.0-53.0) % Plt Count (150-450) k/uL Lymphocytes # (1.0-4.8) k/uL D-Dimer (<0.60) mg/L FEU ABG HCO3 28 H (21-25) mmol/L ABG Total CO2 29 H (19-24) mmol/L ABG O2 Saturation 98.1 H (94-97) % Chloride 113 H (98-107) mmol/L BUN 33 H (9-20) mg/dL Creatinine 1.28 H (0.66-1.25) mg/dL Glucose 139 H (74-99) mg/dL POC Glucose (mg/dL) 137 H (75-99) mg/dL Calcium 7.8 L (8.4-10.2) mg/dL C-Reactive Protein 1.7 H (<1.0) mg/dL Total Protein 4.6 L (6.3-8.2) g/dL Albumin 2.0 L (3.5-5.0) g/dL 05/24/21 05/24/21 Range/Units 12:05 12:05 RBC (4.30-5.90) m/uL Hgb (13.0-17.5) gm/dL Hct (39.0-53.0) % Plt Count (150-450) k/uL Lymphocytes # (1.0-4.8) k/uL D-Dimer (<0.60) mg/L FEU ABG HCO3 28 H (21-25) mmol/L ABG Total CO2 29 H (19-24) mmol/L ABG O2 Saturation 97.6 H (94-97) % Chloride (98-107) mmol/L BUN (9-20) mg/dL Creatinine (0.66-1.25) mg/dL Glucose (74-99) mg/dL POC Glucose (mg/dL) 139 H (75-99) mg/dL Calcium (8.4-10.2) mg/dL C-Reactive Protein (<1.0) mg/dL Total Protein (6.3-8.2) g/dL Albumin (3.5-5.0) g/dL Microbiology - Last 24 Hours (Table) 05/17/21 22:00 Blood Culture - Final Blood No Growth after 144 hours 05/19/21 18:56 Blood Culture - Preliminary Blood No Growth after 96 hours 05/19/21 18:56 Blood Culture - Preliminary Blood No Growth after 96 hours
[2021-05-24 18:13] LABS: Glucose,Whole Blood 117 mg/dL (75-99)
[2021-05-24] MEDS: ATORVASTATIN 20 MG TAB PO SCH (20:16)
--- NOTE | 2021-05-24 21:55 | P.PN ---
Subjective Progress Note Date: 05/24/21 Principal diagnosis: COVID-19 pneumonia Interval history: Patient is a 70-year-old male presented to the hospital with acute respiratory failure in this but have a evidence of multifocal pneumonia secondary to COVID-19. Patient did have worsening of his respiratory status requiring intubation on 05/19/2021, patient has been extubated on 05/24/2021 On today's evaluation that is 05/24/2021, The patient continues to be afebrile, the patient is hemodynamically stable not on any pressor support, the patient has been extubated today and is currently breathing comfortably on nasal cannula oxygen the patient remains to be lethargic and could not provide any history no vomiting or diarrhea reported by the nursing staff Objective - Vital Signs Vital signs: Vital Signs Temp 97.8 F 05/24/21 16:00 Pulse 62 05/24/21 19:00 Resp 15 05/24/21 19:00 BP 107/73 05/24/21 19:00 Pulse Ox 97 05/24/21 20:13 Intake & Output 05/24/21 05/24/21 05/25/21 06:59 18:59 06:59 Intake Total 2569 1815 150 Output Total 990 690 60 Balance 1579 1125 90 Weight 71.9 kg Intake: IV 2125 1650 150 Dextrose 5% in Water 1, 1800 1650 150 000 ml @ 75 mls/hr IV . [id number] [facility] Rx#:[id number] Piperacillin-Tazobactam 3 125 .375 gm In Sodium Chloride 0.9% 100 ml @ 25 mls/hr IVPB Q8HR [facility] Rx# :[id number] Valproate Sodium 250 mg 200 In Sodium Chloride 0.9% 100 ml @ 100 mls/hr IVPB Q6HR@0300,0900,1500,2100 [facility] Rx#:[id number] Tube Feeding 324 135 Other 120 30 Output: Urine 990 690 60 Other: Voiding Method Indwelling Catheter Indwelling Catheter ABP, PAP, CO, CI - Last Documented Arterial Blood Pressure 143/70 - Exam General description is an elderly male lying in bed in no distress Respiratory system:Unlabored breathing, decreased intensity in breath sounds. No wheeze. Heart S1, S2. Regular rate and rhythm. Abdomen soft, no tenderness. Extremities: No edema feet - Labs CBC & Chem 7: 05/24/21 04:00 05/24/21 04:00 Labs: Abnormal Lab Results - Last 24 Hours (Table) 05/23/21 05/24/21 05/24/21 Range/Units 23:45 04:00 04:00 RBC 2.78 L (4.30-5.90) m/uL Hgb 9.1 L (13.0-17.5) gm/dL Hct 27.1 L (39.0-53.0) % Plt Count 129 L (150-450) k/uL Lymphocytes # 0.3 L (1.0-4.8) k/uL D-Dimer 0.86 H (<0.60) mg/L FEU ABG HCO3 (21-25) mmol/L ABG Total CO2 (19-24) mmol/L ABG O2 Saturation (94-97) % Chloride (98-107) mmol/L BUN (9-20) mg/dL Creatinine (0.66-1.25) mg/dL Glucose (74-99) mg/dL POC Glucose (mg/dL) 170 H (75-99) mg/dL Calcium (8.4-10.2) mg/dL C-Reactive Protein (<1.0) mg/dL Total Protein (6.3-8.2) g/dL Albumin (3.5-5.0) g/dL 05/24/21 05/24/21 05/24/21 Range/Units 04:00 05:40 06:05 RBC (4.30-5.90) m/uL Hgb (13.0-17.5) gm/dL Hct (39.0-53.0) % Plt Count (150-450) k/uL Lymphocytes # (1.0-4.8) k/uL D-Dimer (<0.60) mg/L FEU ABG HCO3 28 H (21-25) mmol/L ABG Total CO2 29 H (19-24) mmol/L ABG O2 Saturation 98.1 H (94-97) % Chloride 113 H (98-107) mmol/L BUN 33 H (9-20) mg/dL Creatinine 1.28 H (0.66-1.25) mg/dL Glucose 139 H (74-99) mg/dL POC Glucose (mg/dL) 137 H (75-99) mg/dL Calcium 7.8 L (8.4-10.2) mg/dL C-Reactive Protein 1.7 H (<1.0) mg/dL Total Protein 4.6 L (6.3-8.2) g/dL Albumin 2.0 L (3.5-5.0) g/dL 05/24/21 05/24/21 05/24/21 Range/Units 12:05 12:05 18:11 RBC (4.30-5.90) m/uL Hgb (13.0-17.5) gm/dL Hct (39.0-53.0) % Plt Count (150-450) k/uL Lymphocytes # (1.0-4.8) k/uL D-Dimer (<0.60) mg/L FEU ABG HCO3 28 H (21-25) mmol/L ABG Total CO2 29 H (19-24) mmol/L ABG O2 Saturation 97.6 H (94-97) % Chloride (98-107) mmol/L BUN (9-20) mg/dL Creatinine (0.66-1.25) mg/dL Glucose (74-99) mg/dL POC Glucose (mg/dL) 139 H 117 H (75-99) mg/dL Calcium (8.4-10.2) mg/dL C-Reactive Protein (<1.0) mg/dL Total Protein (6.3-8.2) g/dL Albumin (3.5-5.0) g/dL Microbiology - Last 24 Hours (Table) 05/19/21 18:56 Blood Culture - Preliminary Blood No Growth after 120 hours 05/19/21 18:56 Blood Culture - Preliminary Blood No Growth after 120 hours 05/17/21 22:00 Blood Culture - Final Blood No Growth after 144 hours Assessment and Plan (1) Aspiration pneumonia Current Visit: Yes Status: Acute Code(s): J69.0 - PNEUMONITIS DUE TO INHALATION OF FOOD AND VOMIT SNOMED Code(s): 333944504 (2) COVID-19 Current Visit: Yes Status: Acute Code(s): U07.1 - COVID-19 SNOMED Code(s): 057696930 Plan: Patient with acute respiratory failure which is multifactorial in this patient with initial diagnosis of COVID-19 pneumonia in this patient did have significant worsening of his respiratory status requiring intubation and concern for possible aspiration pneumonitis, patient seemed to have shown improvement in his clinical condition as the patient has been extubated, patient to continue with a dexamethasone Lovenox zinc and ascorbic acid along with empiric Zosyn, blood culture had been negative sputum showing Romelia more likely a colonizer and will monitor closely Time with Patient: Less than 30
[2021-05-24 23:43] LABS: Glucose,Whole Blood 84 mg/dL (75-99)
[2021-05-25] MEDS: LORazepam 2 MG/ML INJ IV PRN (02:41)
[2021-05-25] MEDS: VALPROATE SODIUM 250 MG in SODIUM CHLORIDE 0.9% 100 ML IVPB SCH ×4 (02:45→21:06)
[2021-05-25] MEDS: DEXTROSE 5% IN WATER 1,000 ML IV SCH ×2 (02:45→21:08)
[2021-05-25] MEDS ORDERED: FLUMAZENIL 0.1 MG/ML 5 ML VIAL IVP STA (03:42)
[2021-05-25 04:09] LABS: ABG PO2 170 mmHg (83-108); Allen Test Performed? Yes
[2021-05-25] MEDS ORDERED: propofoL 100 ML IV ONE (04:11)
[2021-05-25] MEDS: NOREPINEPHRINE 4 MG in SODIUM CHLORIDE 0.9% 250 ML IV SCH ×2 (04:30→23:58)
[2021-05-25] MEDS ORDERED: NOREPINEPHRIN 4 MG-0.9% NS PMX 4 MG/250 ML ML IV ONE (04:31)
[2021-05-25 04:37] LABS: ABG PCO2 >120 mmHg (35-45); ABG PH 6.97 (7.35-7.45)
--- NOTE | 2021-05-25 04:54 | XR ---
EXAMINATION TYPE: XR chest 1V portable DATE OF EXAM: 05/25/2021 COMPARISON: Yesterday HISTORY: Respiratory failure TECHNIQUE: Single view FINDINGS: The endotracheal tube is 2 cm from the kerri. There is some volume loss in the right hemit horax with shift of heart to the right side. There is consolidation or atelectasis in the right lung. There is nasogastric tube with the tip probably below the diaphragm. There is right jugular catheter with tip in the right atrium. There are chest leads. IMPRESSION: There is airspace consolidation and atelectasis and volume loss in the right hemithorax w hich is slightly new compared to exam yesterday. There is pulmonary interstitial edema on the left si de without change.
[2021-05-25 04:59] LABS: Glucose,Whole Blood 111 mg/dL (75-99)
[2021-05-25 05:38] LABS: ABG Base Excess 1.9 mmol/L; ABG HCO3 28 mmol/L (21-25); ABG Oxygen Saturation 87.5 % (94-97); ABG PCO2 57 mmHg (35-45); ABG TCO2 30 mmol/L (19-24); Allen Test Performed? Yes
[2021-05-25 05:40] LABS: ABG PO2 57 mmHg (83-108)
[2021-05-25 05:54] LABS: Albumin 2.3 g/dL (3.5-5.0); C Reactive Protein 1.9 mg/dL (<1.0); Calcium 8.1 mg/dL (8.4-10.2); Potassium 3.7 mmol/L (3.5-5.1); Total Bilirubin 0.4 mg/dL (0.2-1.3); Total Protein 5.2 g/dL (6.3-8.2)
[2021-05-25 06:00] LABS: Basophils % (A) 0 %; Eosinophils # (A) 0.1 k/uL (0-0.7); Eosinophils % (A) 1 %; HCT 33.7 % (39.0-53.0); HGB 10.7 gm/dL (13.0-17.5); Hypochromasia Slight; Lymphocytes # (A) 0.5 k/uL (1.0-4.8); Lymphocytes % (A) 4 %; MCH 31.4 pg (25.0-35.0); MCHC 31.8 g/dL (31.0-37.0); Macrocytosis Slight; Mean Platelet Volume 8.5; Monocytes # (A) 0.4 k/uL (0-1.0); Monocytes % (A) 3 %; Neutrophils # (A) 11.8 k/uL (1.3-7.7); Neutrophils % (A) 91 %; RBC 3.41 m/uL (4.30-5.90); RDW 15.1 % (11.5-15.5)
[2021-05-25 06:12] LABS: Platelet Count 302 k/uL (150-450)
[2021-05-25] MEDS: ALBUTEROL HFA INHALER INHALATION SCH ×4 (08:08→21:06)
[2021-05-25] MEDS: NYSTATIN 100,000 UNIT/ML SUSP 500,000 UNIT/5 ML CUP PO SCH ×4 (09:11→21:07)
[2021-05-25] MEDS: HYDROCORTISONE SUCCINATE 100 MG/2 ML VIAL IV SCH ×2 (09:11→21:06)
[2021-05-25] MEDS: ENOXAPARIN 40 MG/0.4 ML SYRINGE SQ SCH (09:11)
[2021-05-25] MEDS: FERROUS SULFATE 325 MG TAB PO SCH (09:11)
[2021-05-25] MEDS: PANTOPRAZOLE 40 MG/10 ML VIAL IVP SCH (09:11)
[2021-05-25] MEDS: FOLIC ACID 1 MG TAB PO SCH (09:11)
[2021-05-25] MEDS: PIPERACILLIN-TAZOBACTAM 3.375 GM in SODIUM CHLORIDE 0.9% 100 ML IVPB SCH ×2 (09:12→15:55)
[2021-05-25 11:16] LABS: Glucose,Whole Blood 91 mg/dL (75-99)
--- NOTE | 2021-05-25 12:15 | P.PN ---
Progress Note - Text Progress Note Date: 05/25/21 Patient was reintubated history. His vitals are stable today. Patient will be scheduled for tracheostomy PEG tube placement tomorrow.
[2021-05-25] MEDS: DOPamine DRIP 800 MG in WATER FOR INJECTION 1 250ML.BAG IV SCH (13:13)
--- NOTE | 2021-05-25 13:36 | P.PN ---
Subjective Progress Note Date: 05/25/21 Follow-up for acute kidney injury and hypernatremia. Objective - Vital Signs Vital signs: Vital Signs Temp 98.0 F 05/25/21 12:00 Pulse 41 L 05/25/21 13:00 Resp 43 H 05/25/21 13:00 BP 115/63 05/25/21 13:00 Pulse Ox 99 05/25/21 13:00 Intake & Output 05/24/21 05/25/21 05/25/21 18:59 06:59 18:59 Intake Total 1815 1585.710 635.688 Output Total 690 1055 1810 Balance 1125 530.710 -1174.312 Weight 68 kg Intake: IV 1650 1550 525 Dextrose 5% in Water 1, 1650 1275 525 000 ml @ 75 mls/hr IV . [id number] [facility] Rx#:[id number] Piperacillin-Tazobactam 3 75 .375 gm In Sodium Chloride 0.9% 100 ml @ 25 mls/hr IVPB Q8HR [facility] Rx# :[id number] Valproate Sodium 250 mg 200 In Sodium Chloride 0.9% 100 ml @ 100 mls/hr IVPB Q6HR@0300,0900,1500,2100 [facility] Rx#:[id number] Intake, IV Titration 35.710 50.688 Amount Norepinephrine 4 mg In 29.998 23.148 Sodium Chloride 0.9% 250 ml @ 0.05 MCG/KG/MIN 13. 697 mls/hr IV .[id number] [facility] Rx#:[id number] propofoL 1,000 mg In 5.712 27.54 Empty Bag 1 bag @ Titrate IV .Q0M [facility] Rx#: [id number] Tube Feeding 135 Other 30 60 Output: Urine 690 1055 1810 Other: Voiding Method Indwelling Catheter Indwelling Catheter # Voids 2 ABP, PAP, CO, CI - Last Documented Arterial Blood Pressure 129/59 - Exam COVID-19 isolation. Refer to primary team exam. - Labs CBC & Chem 7: 05/25/21 05:10 05/25/21 05:10 Labs: Abnormal Lab Results - Last 24 Hours (Table) 05/24/21 05/25/21 05/25/21 Range/Units 18:11 04:10 04:57 WBC (3.8-10.6) k/uL RBC (4.30-5.90) m/uL Hgb (13.0-17.5) gm/dL Hct (39.0-53.0) % Neutrophils # (1.3-7.7) k/uL Lymphocytes # (1.0-4.8) k/uL D-Dimer (<0.60) mg/L FEU ABG pH 6.97 L* (7.35-7.45) ABG pCO2 >120 H* (35-45) mmHg ABG pO2 170 H (83-108) mmHg ABG HCO3 (21-25) mmol/L ABG Total CO2 (19-24) mmol/L ABG O2 Saturation 98.0 H (94-97) % Chloride (98-107) mmol/L BUN (9-20) mg/dL Creatinine (0.66-1.25) mg/dL Glucose (74-99) mg/dL POC Glucose (mg/dL) 117 H 111 H (75-99) mg/dL Calcium (8.4-10.2) mg/dL C-Reactive Protein (<1.0) mg/dL Total Protein (6.3-8.2) g/dL Albumin (3.5-5.0) g/dL 05/25/21 05/25/21 05/25/21 Range/Units 05:10 05:10 05:10 WBC 13.0 H (3.8-10.6) k/uL RBC 3.41 L (4.30-5.90) m/uL Hgb 10.7 L (13.0-17.5) gm/dL Hct 33.7 L (39.0-53.0) % Neutrophils # 11.8 H (1.3-7.7) k/uL Lymphocytes # 0.5 L (1.0-4.8) k/uL D-Dimer 1.84 H (<0.60) mg/L FEU ABG pH (7.35-7.45) ABG pCO2 (35-45) mmHg ABG pO2 (83-108) mmHg ABG HCO3 (21-25) mmol/L ABG Total CO2 (19-24) mmol/L ABG O2 Saturation (94-97) % Chloride 109 H (98-107) mmol/L BUN 27 H (9-20) mg/dL Creatinine 1.36 H (0.66-1.25) mg/dL Glucose 122 H (74-99) mg/dL POC Glucose (mg/dL) (75-99) mg/dL Calcium 8.1 L (8.4-10.2) mg/dL C-Reactive Protein 1.9 H (<1.0) mg/dL Total Protein 5.2 L (6.3-8.2) g/dL Albumin 2.3 L (3.5-5.0) g/dL 05/25/21 Range/Units 05:32 WBC (3.8-10.6) k/uL RBC (4.30-5.90) m/uL Hgb (13.0-17.5) gm/dL Hct (39.0-53.0) % Neutrophils # (1.3-7.7) k/uL Lymphocytes # (1.0-4.8) k/uL D-Dimer (<0.60) mg/L FEU ABG pH 7.30 L (7.35-7.45) ABG pCO2 57 H (35-45) mmHg ABG pO2 57 L* (83-108) mmHg ABG HCO3 28 H (21-25) mmol/L ABG Total CO2 30 H (19-24) mmol/L ABG O2 Saturation 87.5 L (94-97) % Chloride (98-107) mmol/L BUN (9-20) mg/dL Creatinine (0.66-1.25) mg/dL Glucose (74-99) mg/dL POC Glucose (mg/dL) (75-99) mg/dL Calcium (8.4-10.2) mg/dL C-Reactive Protein (<1.0) mg/dL Total Protein (6.3-8.2) g/dL Albumin (3.5-5.0) g/dL Microbiology - Last 24 Hours (Table) 05/25/21 04:54 Sputum Culture - Preliminary Sputum 05/19/21 18:56 Blood Culture - Preliminary Blood No Growth after 120 hours 05/19/21 18:56 Blood Culture - Preliminary Blood No Growth after 120 hours Assessment and Plan Assessment: #1 acute kidney injury secondary to hemodynamic ATN. Peak creatinine was 2.07. #2 chronic kidney disease stage III A secondary to nephrosclerosis with a baseline creatinine of 1.2-1.4 MG per DL. #3 COVID-19 pneumonia #4 hypernatremia secondary to volume depletion #5 hyperkalemia secondary to acute kidney injury, resolved Plan: #1 continue with D5 water at 75 ML's an hour. #2 renal function stable around baseline. Replace electrolytes as per ICU protocol #3 ICU care.
--- NOTE | 2021-05-25 14:33 | P.PN ---
Subjective Progress Note Date: 05/25/21 This is a 70-year-old male who was recently admitted with change in mental status and fall and also shortness of breath and acute COVID-19 pneumonia and being closely monitored. Patient was continued on high flow oxygen although respiratory status continued to deteriorate and an A team was called. Patient was brought to the ICU for close monitoring and x-ray showed some bilateral lower lobe pneumonia which appears unchanged compared to recent exam with no obvious heart failure. Patient was placed on mechanical vent and intubated and sedated and is being closely monitored. Multiple medical consultations including pulmonary and infectious disease following closely. 05/20/2021 Patient is seen in follow-up activity is to be closely monitored in the ICU. Blood pressure and heart rate has been extremely variable and patient is maintained on D10 in water along with norepinephrine and will continue. Pulmonary and infectious disease following closely. Patient continues with worsening kidney functions nephrology consulted and patient is being given a liter bolus for hypotension and repeat sodium level ordered. Patient also continues on Zosyn and ID following closely. Patient continues with low blood sugar readings as well and we'll continue D10 and close glucose monitoring. Chest x-ray shows some improvement in bibasilar infiltrates more so on the right and possibly developing small right pleural effusion. 05/21/2021 Patient is seen and evaluated this morning continues to be in the ICU with multiple medical consultations following. Patient is continued on IV antibiotics with ID following. Cultures continue to be negative and WBC is 8.5. Patient did have low grade temp today. Patient continues on mechanical vent and sedated. Chest xray similar to previous exam and will continue to monitor. Prognosis remains guarded. Patient also continued on norepinephrine. 05/22/2021 Patient is seen and evaluated today continues to be on mechanical vent with an FiO2 of 40% PEEP is 5. Patient continuing with weaning trials and assist mode on mechanical vent although patient continues to not follow commands per nursing staff. Per pulmonary discovery manager continued attempts at weaning. Chest x-ray shows chronic emphysematous changes and pulmonary fibrosis with moderate bilateral pleural effusions and bilateral multifocal increased opacification consistent with COVID-19 infection are all redemonstrated with no significant change from yesterday. Sputum culture finalized showing Romelia species not albicans, glabrata along with Romelia albicans and infectious disease is fol lowing. Patient continues on IV antibiotics in the form of Zosyn. Patient is currently off norepinephrine and receiving Solu-Cortef along with valproic acid and Depakote. Patient is continued on Lovenox for DVT prophylaxis. Patient also continues on D5 in water at 100 mL per hour. Blood gases are improving and pulmonary discussing possible extubation. 05/23/2021 Patient is seen this morning continues to be on mechanical vent with an FiO2 of 40 and a PEEP of 5 with continued weaning trials. Patient is off sedation and does open eyes to verbal stimuli although does not follow commands. Chest x-ray today shows chronic emphysematous and pulmonary fibrotic changes with small size bilateral pleural effusions and bilateral multifocal increased opacification is consistent with COVID-19 infection are again redemonstrated with no significant change from previous. General surgery consulted for possible trach and peg tube placement. Labs: WBC is 5.5, hemoglobin is 8.9, platelets are 107, sodium is 147, potassium 3.5, BUN 37, creatinine 1.44, calcium 8.0 05/24/2021 Patient with spontaneous eye opening during assessment, eyes are tracking, however when asked to squeeze fingers patient unable to do so and did not wiggle toes when asked. He was not responsive to commands or yes or no questions. Continues in the ICU on 5L NC with an oxygen saturation of 91%. He is afebrile, Heart rate is in the 40-50's dropping into the mid 30's. Unclear whether patient is in a heart block, nurse reports HR of 30's seems to be when he is sleeping. EKG will try to be obtained when he is in the 30's. Respirations are 23, blood pressure 135/55. Chest xray today remains unchanged. Possible trach and PEG tube wednesday if needed. Labs today show WBC 7.0, hgb 9.1, D-dimer 0.86, sodium 142, potassium 3.6, BUN 33, creatinine 1.28, glucose in the 130s, calcium 7.8, CRP 1.7, total protein 4.6, albumin 2.0. Multiple consultations. Prognosis remains guarded. 05/25/2021 Throughout the evening patient desaturated and his blood pressure was dropping while on the levophed and his heart rate was increasing and then once he was off the levophed his heart rate was increasing and his blood pressure was dropping. Patient was reintubated with an Fi02 of 60%. Blood gases at the time showed a pCO2 of greater than 120, pH 6.97, pO2 170, total oxygen saturation 98. Oxygen saturations 98%, he is afebrile, pulse rate 43 appears sinus bradycardia on EKG that was obtained midmorning. Blood pressure 135/75. Blood gases have improved with a pH now 7.30, pCO2 57, pO2 57, HCO3 28, total CO2 30 and O2 saturation 87.5. Sodium 140, potassium 3.7, chloride 109, CO2 28, BUN 27, creatinine 1.36, blood glucose 120, calcium 8.1, AST 27, ALT 19, LDH 585, CRP 1.9. Chest x-ray today shows as based consolidation atelectasis and volume loss in the right hemithorax which is slightly compared to exam yesterday. Has pulmonary interstitial edema on the left side without change. Plan is for a PEG, trach tomorrow. Cardiology was consulted and started patient on a dopamine infusion. Patient is on D5 water at 75 mL per hour, levophed infusing, propofol, on IV Zosyn and IV valproic acid. Labs initial white count 13, hemoglobin 10.7, d- dimer 1.84. Review of systems: Unable to obtain as patient is intubated and sedated Physical Exam: Gen: this is a 70-year-old male was extubated and now re-intubated HEENT: Head is atraumatic, normocephalic. Pupils equal, round. Sclerae is anicteric. NECK: Supple. No JVD. No lymphadenopathy. No thyromegaly. LUNGS: Diminished breath sounds bilaterally with coarse rhonchi and crackles noted. No intercostal retractions. HEART: S1, S2 are muffled ABDOMEN: Soft. Bowel sounds are present. No masses. No tenderness. EXTREMITIES: No pedal edema. No calf tenderness. NEUROLOGICAL: Patient is currently intubated and sedated Assessment: Acute COVID-19 infection with acute COVID-19 bilateral interstitial pneumonia, right more than left with acute hypoxic respiratory failure, now requiring mechanical ventilation with extubation on 05/24/2021, and re-intubation on Acute kidney injury secondary to acute tubular necrosis from septic shock, creatinine stable at 1.33 Chronic kidney disease stage III secondary to nephrosclerosis Hypoglycemia, improved Change in mental status, metabolic encephalopathy, multifactorial Falling, gait dysfunction Anemia, normocytic anemia of undetermined significance Hypernatremia from poor oral intake Hyperkalemia secondary to acute kidney injury, resolved Elevated d-dimer history of coronary artery disease history of chronic obstructive pulmonary disease Gastroesophageal reflux disease history of bipolar, schizoaffective disorder and schizophrenia History of nicotine dependence Severe protein calorie malnutrition with a BMI of 19.1 Full code Plan: Recommend to continue with current medications and follow along closely with multiple medical consultations. Prognosis remains guarded with multiple complex medical issues noted. Patient was extubated on 05/24/2021 however had a decline in status and was re-intubated. Blood gasses at that time showed a pC02 of greater than 120, which is now 57 s/p intubation. He is showing signs of neurological improvement as he has spontaneous eye opening with tracking yester day. Sedated now with propofol. Nutritional support started today, tentative for PEG and Trach on wednesday. Recommend continue with current medications and patient has been maintained on IV antibiotics with infectious disease following.. Sputum culture showing Romelia albicans along with Romelia species. Most likely colonized. Chest x-ray reviewed as mentioned above. Recommend repeat labs in the morning. Nephrology following. Will continue on D5 and water. Again due to multiple complex medical issues prognosis is quite guarded. Objective - Vital Signs Vital signs: Vital Signs Temp 98.0 F 05/25/21 12:00 Pulse 41 L 05/25/21 13:00 Resp 43 H 05/25/21 13:00 BP 115/63 05/25/21 13:00 Pulse Ox 99 05/25/21 13:00 Intake & Output 05/24/21 05/25/21 05/25/21 18:59 06:59 18:59 Intake Total 1815 1585.710 635.688 Output Total 690 1055 1810 Balance 1125 530.710 -1174.312 Weight 68 kg Intake: IV 1650 1550 525 Dextrose 5% in Water 1, 1650 1275 525 000 ml @ 75 mls/hr IV . [id number] [facility] Rx#:[id number] Piperacillin-Tazobactam 3 75 .375 gm In Sodium Chloride 0.9% 100 ml @ 25 mls/hr IVPB Q8HR [facility] Rx# :[id number] Valproate Sodium 250 mg 200 In Sodium Chloride 0.9% 100 ml @ 100 mls/hr IVPB Q6HR@0300,0900,1500,2100 [facility] Rx#:[id number] Intake, IV Titration 35.710 50.688 Amount Norepinephrine 4 mg In 29.998 23.148 Sodium Chloride 0.9% 250 ml @ 0.05 MCG/KG/MIN 13. 697 mls/hr IV .[id number] [facility] Rx#:[id number] propofoL 1,000 mg In 5.712 27.54 Empty Bag 1 bag @ Titrate IV .Q0M [facility] Rx#: [id number] Tube Feeding 135 Other 30 60 Output: Urine 690 1055 1810 Other: Voiding Method Indwelling Catheter Indwelling Catheter Indwelling Catheter # Voids 2 ABP, PAP, CO, CI - Last Documented Arterial Blood Pressure 129/59 - Labs CBC & Chem 7: 05/25/21 05:10 05/25/21 05:10 Labs: Abnormal Lab Results - Last 24 Hours (Table) 05/24/21 05/25/21 05/25/21 Range/Units 18:11 04:10 04:57 WBC (3.8-10.6) k/uL RBC (4.30-5.90) m/uL Hgb (13.0-17.5) gm/dL Hct (39.0-53.0) % Neutrophils # (1.3-7.7) k/uL Lymphocytes # (1.0-4.8) k/uL D-Dimer (<0.60) mg/L FEU ABG pH 6.97 L* (7.35-7.45) ABG pCO2 >120 H* (35-45) mmHg ABG pO2 170 H (83-108) mmHg ABG HCO3 (21-25) mmol/L ABG Total CO2 (19-24) mmol/L ABG O2 Saturation 98.0 H (94-97) % Chloride (98-107) mmol/L BUN (9-20) mg/dL Creatinine (0.66-1.25) mg/dL Glucose (74-99) mg/dL POC Glucose (mg/dL) 117 H 111 H (75-99) mg/dL Calcium (8.4-10.2) mg/dL C-Reactive Protein (<1.0) mg/dL Total Protein (6.3-8.2) g/dL Albumin (3.5-5.0) g/dL 05/25/21 05/25/21 05/25/21 Range/Units 05:10 05:10 05:10 WBC 13.0 H (3.8-10.6) k/uL RBC 3.41 L (4.30-5.90) m/uL Hgb 10.7 L (13.0-17.5) gm/dL Hct 33.7 L (39.0-53.0) % Neutrophils # 11.8 H (1.3-7.7) k/uL Lymphocytes # 0.5 L (1.0-4.8) k/uL D-Dimer 1.84 H (<0.60) mg/L FEU ABG pH (7.35-7.45) ABG pCO2 (35-45) mmHg ABG pO2 (83-108) mmHg ABG HCO3 (21-25) mmol/L ABG Total CO2 (19-24) mmol/L ABG O2 Saturation (94-97) % Chloride 109 H (98-107) mmol/L BUN 27 H (9-20) mg/dL Creatinine 1.36 H (0.66-1.25) mg/dL Glucose 122 H (74-99) mg/dL POC Glucose (mg/dL) (75-99) mg/dL Calcium 8.1 L (8.4-10.2) mg/dL C-Reactive Protein 1.9 H (<1.0) mg/dL Total Protein 5.2 L (6.3-8.2) g/dL Albumin 2.3 L (3.5-5.0) g/dL 05/25/21 Range/Units 05:32 WBC (3.8-10.6) k/uL RBC (4.30-5.90) m/uL Hgb (13.0-17.5) gm/dL Hct (39.0-53.0) % Neutrophils # (1.3-7.7) k/uL Lymphocytes # (1.0-4.8) k/uL D-Dimer (<0.60) mg/L FEU ABG pH 7.30 L (7.35-7.45) ABG pCO2 57 H (35-45) mmHg ABG pO2 57 L* (83-108) mmHg ABG HCO3 28 H (21-25) mmol/L ABG Total CO2 30 H (19-24) mmol/L ABG O2 Saturation 87.5 L (94-97) % Chloride (98-107) mmol/L BUN (9-20) mg/dL Creatinine (0.66-1.25) mg/dL Glucose (74-99) mg/dL POC Glucose (mg/dL) (75-99) mg/dL Calcium (8.4-10.2) mg/dL C-Reactive Protein (<1.0) mg/dL Total Protein (6.3-8.2) g/dL Albumin (3.5-5.0) g/dL Microbiology - Last 24 Hours (Table) 05/25/21 04:54 Sputum Culture - Preliminary Sputum 05/19/21 18:56 Blood Culture - Preliminary Blood No Growth after 120 hours 05/19/21 18:56 Blood Culture - Preliminary Blood No Growth after 120 hours
--- NOTE | 2021-05-25 14:40 | P.PN ---
Subjective Progress Note Date: 05/25/21 Principal diagnosis: Acute hypoxic respiratory failure secondary to acute COVID-19 pneumonia On 05/23/2021 patient seen in follow-up in the intensive care unit. He remains intubated, on mechanical ventilator, currently on assist control mode of ventilation with a rate of 36, tidal volume 375, FiO2 of 40% and PEEP of 5. This morning's blood gas shows pO2 of 136, pCO2 of 40, and pH of 7.42, this was done and above-mentioned vent settings. Today's chest x-ray has been reviewed showing chronic emphysematous and pulmonary fibrotic changes with small bilateral pleural effusions and bilateral multifocal opacities, without significant change compared to the prior study. Today's labs have been reviewed, white blood cell count is 5.5, hemoglobin is 8.9, sodium is 147, improving potassium is 3.5, chloride is 118, CO2 is 27, BUN 37, creatinine is 1.44. Patient is receiving D5W 1 50 ML per hour, nephrology is managing, he remains on hydrocortisone 100 mg every 8 hours, his been off vasopressor support for 48 hours. He has had no fever or chills. He remains on Zosyn. Sputum culture showed Romelia species, blood cultures have been negative. Neurologically patient has been off sedation for the past 24 hours. However patient is not following commands, although he is awake, at times he becomes restless, his been getting intermittent doses of when necessary on as-needed basis. We understand patient has underlying history of dementia however his baseline mental status is not known to us, his level of consciousness is certainly improved, however patient has not been able to follow any instructions. And for that reason patient has not been able to tolerate weaning trials, last night he had to be placed on assist-control mode of ventilation because he was extremely anxious, she did tolerate pressure support of 14 and IMV of 10 for a couple of hours, however became very agitated, and was placed back on assist control mode of ventilation. he is tolerating tube feedings. Patient was reevaluated today on 05/24/2021, remains intubated and mechanically ventilated. Patient has been off sedation for the last few days, and he is on assist control rate of 56 tidal volume 375 FiO2 40% PEEP of 5. ABG today showed a pO2 of 96 pCO2 41 pH of 7.44. His electrolytes are normal, BUN is 33 creatinine is 1.28, his chest x-ray is showing improvement in his by basilar infiltrates. Patient is awake, he is actually responsive to all stimuli, squeezes hands, wiggling toes, sticks out tongue up on request, patient is generally weak however. Hence I have recommended that the patient goes on a pressure support of 8 and CPAP, and if tolerated, may consider weaning and extubating this patient today. Patient remains on antibiotics, he is receiving Zosyn. Reevaluated today on 05/25/2021, patient remains in the ICU, he was extubated yesterday, however the patient was unable to clear his secretions, and he developed significant airspace/ disease/pneumonia in the right lung, required reintubation early this morning. Patient is now on assist control rate of 30 volume 350 FiO2 60% and PEEP of 5. ABG this morning on 50% showed a pO2 of 57 pCO2 of 57 pH of 7.30, and the FiO2 was increased to 60%. Electrolytes are normal, renal profile is a bit worse, but nonetheless remains stable with a creatinine of 1.36. Patient had a creatinine of 1.28 yesterday. However he had creatinine as high as 2.07. There is worsening chest x-ray appearance today, there is consolidation and atelectasis and possibly some volume loss in the right hemithorax which is worse today compared to yesterday. At any rate patient is scheduled to undergo tracheostomy and PEG tube placement in the next 24 hours. General surgery was consulted on this patient. Patient is requiring propofol, he is on D5W at 75 mL per hour, he is also on Zosyn, and on propofol at 20 mcg/kg/m, requiring a very small dose of norepinephrine 0.005. This will likely be discontinued if we could cut down on the propofol. Objective - Vital Signs Vital signs: Vital Signs Temp 98.0 F 05/25/21 12:00 Pulse 43 L 05/25/21 14:00 Resp 30 H 05/25/21 14:00 BP 135/75 05/25/21 14:00 Pulse Ox 98 05/25/21 14:00 Intake & Output 05/24/21 05/25/21 05/25/21 18:59 06:59 18:59 Intake Total 1815 1585.710 710.688 Output Total 690 1055 1960 Balance 1125 530.710 -1249.312 Weight 68 kg Intake: IV 1650 1550 600 Dextrose 5% in Water 1, 1650 1275 600 000 ml @ 75 mls/hr IV . [id number] [facility] Rx#:[id number] Piperacillin-Tazobactam 3 75 .375 gm In Sodium Chloride 0.9% 100 ml @ 25 mls/hr IVPB Q8HR [facility] Rx# :[id number] Valproate Sodium 250 mg 200 In Sodium Chloride 0.9% 100 ml @ 100 mls/hr IVPB Q6HR@0300,0900,1500,2100 [facility] Rx#:[id number] Intake, IV Titration 35.710 50.688 Amount Norepinephrine 4 mg In 29.998 23.148 Sodium Chloride 0.9% 250 ml @ 0.05 MCG/KG/MIN 13. 697 mls/hr IV .[id number] [facility] Rx#:[id number] propofoL 1,000 mg In 5.712 27.54 Empty Bag 1 bag @ Titrate IV .Q0M [facility] Rx#: [id number] Tube Feeding 135 Other 30 60 Output: Urine 690 1055 1960 Other: Voiding Method Indwelling Catheter Indwelling Catheter Indwelling Catheter # Voids 2 ABP, PAP, CO, CI - Last Documented Arterial Blood Pressure 151/62 - Exam GENERAL EXAM: Revealed a 70-year-old white male, frail looking, chronically ill, intubated and mechanically ventilated. Sedated, on propofol. HEAD: Normocephalic/atraumatic. Orogastric tube and endotracheal tube are intact. HEENT: PERRLA, EOMI, anicteric, no neck masses no JVD, moist mucous membranes. CHEST: No chest wall deformity. Symmetrical expansion. LUNGS: Symmetrical chest expansion, rhonchi noted bilaterally more so on the right side. CVS: Normal S1 and S2, no S3 gallop. guarding or rigidity. EXTREMITIES: No clubbing, Abdomen: Nontender no megaly no rebound. MUSCULOSKELETAL: No deformities. SKIN: No rashes CENTRAL NERVOUS SYSTEM: Cannot assess patient is sedated, on propofol. - Labs CBC & Chem 7: 05/25/21 05:10 05/25/21 05:10 Labs: Abnormal Lab Results - Last 24 Hours (Table) 05/24/21 05/25/21 05/25/21 Range/Units 18:11 04:10 04:57 WBC (3.8-10.6) k/uL RBC (4.30-5.90) m/uL Hgb (13.0-17.5) gm/dL Hct (39.0-53.0) % Neutrophils # (1.3-7.7) k/uL Lymphocytes # (1.0-4.8) k/uL D-Dimer (<0.60) mg/L FEU ABG pH 6.97 L* (7.35-7.45) ABG pCO2 >120 H* (35-45) mmHg ABG pO2 170 H (83-108) mmHg ABG HCO3 (21-25) mmol/L ABG Total CO2 (19-24) mmol/L ABG O2 Saturation 98.0 H (94-97) % Chloride (98-107) mmol/L BUN (9-20) mg/dL Creatinine (0.66-1.25) mg/dL Glucose (74-99) mg/dL POC Glucose (mg/dL) 117 H 111 H (75-99) mg/dL Calcium (8.4-10.2) mg/dL C-Reactive Protein (<1.0) mg/dL Total Protein (6.3-8.2) g/dL Albumin (3.5-5.0) g/dL 05/25/21 05/25/21 05/25/21 Range/Units 05:10 05:10 05:10 WBC 13.0 H (3.8-10.6) k/uL RBC 3.41 L (4.30-5.90) m/uL Hgb 10.7 L (13.0-17.5) gm/dL Hct 33.7 L (39.0-53.0) % Neutrophils # 11.8 H (1.3-7.7) k/uL Lymphocytes # 0.5 L (1.0-4.8) k/uL D-Dimer 1.84 H (<0.60) mg/L FEU ABG pH (7.35-7.45) ABG pCO2 (35-45) mmHg ABG pO2 (83-108) mmHg ABG HCO3 (21-25) mmol/L ABG Total CO2 (19-24) mmol/L ABG O2 Saturation (94-97) % Chloride 109 H (98-107) mmol/L BUN 27 H (9-20) mg/dL Creatinine 1.36 H (0.66-1.25) mg/dL Glucose 122 H (74-99) mg/dL POC Glucose (mg/dL) (75-99) mg/dL Calcium 8.1 L (8.4-10.2) mg/dL C-Reactive Protein 1.9 H (<1.0) mg/dL Total Protein 5.2 L (6.3-8.2) g/dL Albumin 2.3 L (3.5-5.0) g/dL 05/25/21 Range/Units 05:32 WBC (3.8-10.6) k/uL RBC (4.30-5.90) m/uL Hgb (13.0-17.5) gm/dL Hct (39.0-53.0) % Neutrophils # (1.3-7.7) k/uL Lymphocytes # (1.0-4.8) k/uL D-Dimer (<0.60) mg/L FEU ABG pH 7.30 L (7.35-7.45) ABG pCO2 57 H (35-45) mmHg ABG pO2 57 L* (83-108) mmHg ABG HCO3 28 H (21-25) mmol/L ABG Total CO2 30 H (19-24) mmol/L ABG O2 Saturation 87.5 L (94-97) % Chloride (98-107) mmol/L BUN (9-20) mg/dL Creatinine (0.66-1.25) mg/dL Glucose (74-99) mg/dL POC Glucose (mg/dL) (75-99) mg/dL Calcium (8.4-10.2) mg/dL C-Reactive Protein (<1.0) mg/dL Total Protein (6.3-8.2) g/dL Albumin (3.5-5.0) g/dL Microbiology - Last 24 Hours (Table) 05/25/21 04:54 Sputum Culture - Preliminary Sputum 05/19/21 18:56 Blood Culture - Preliminary Blood No Growth after 120 hours 05/19/21 18:56 Blood Culture - Preliminary Blood No Growth after 120 hours Assessment and Plan Assessment: #1. Acute hypoxic respiratory failure related to acute COVID-19 pneumonia, and possibility of bacterial infection/aspiration related pneumonia is not entirely excluded. Patient was brought into the emergency department on 05/17/2021 per EMS, patient is a poor historian, reportedly has history of bipolar disease and dementia. Came in primarily for evaluation of altered mental status. Transferred from [place] emergency department for COVID-19 related pneumonia. The patient was taken to the hospital in [place] 4 days prior to this admission and the symptom onset was probably even prior to that. Exact onset of symptoms is not known. Patient was transferred to the intensive care unit on 05/19/2021 for worsening hypoxia, and hypercapnia, and altered mental status, and was intubated on 05/19/2021 weaning from mechanical ventilation and was difficult, nonetheless, patient was extubated on 05/24/2021, patient could not cope with his secretions, and he had a very weak cough, patient had to be reintubated on 05/04 07/23. I believe the patient should undergo tracheostomy and PEG tube placement. #2. Acute hypercapnic respiratory failure, related to acute aspiration, and possible COVID-19 pneumonia, intubated #3. Hypotension, related to dehydration, and possibility of septic shock is not excluded. Mostly resolved. #4. Altered mental status with worsening from baseline #5. History of dementia and schizoaffective disorder #6. Acute dehydration and hypernatremia, resolved. Patient received free water and D5W. #7. Chronic stage 3 kidney disease #8. COPD #9. History of coronary artery disease #10. GERD/reflux #11. Hyperlipidemia #12. Acute kidney injury related to ATN, and dehydration, patient continues on IV hydration and continues to receive fluid boluses, creatinine seems to be fluctuating up and down. Today creatinine is 1.36 #13. Hyperkalemia related to [place], resolved #14. Hypoglcemia, was placed on D10 at 100 ml, resolved. And he is off D10 W. recommendation: Continue ventilatory support. Continue antibiotics. Continue bronchodilators. Continue IV fluids, monitor electrolytes accordingly on a daily basis. And adjust fluids as well as free water flushes. Continue nutritional support. Continue GI and DVT prophylaxis. Continue COVID-19 cocktail. 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 There is no reason to try weaning again as the patient failed within 24 hours. Strongly recommend tracheostomy and PEG tube placement. Remains critically ill, agent will be kept in the ICU. Critical care time is over 30 minutes Time with Patient: Greater than 30
--- NOTE | 2021-05-25 16:11 | CONS ---
CONSULTATION 70-year-old gentleman with history of coronary artery disease, COPD, dyslipidemia, and GERD, who presented to hospital with COVID pneumonia. Patient initially went to [facility] and from there had been transferred over to [facility]. He is intubated on vent and in respiratory failure with hypotension. Cardiology was consulted today because of episodes of bradycardia. An EKG shows sinus bradycardia with a heart rate of 40 beats per minute. I started the patient on intravenous dopamine which should help improve his heart rate and also the blood pressure. The patient is intubated on vent and I could not obtain any information from him. I spoke to the nurse and reviewed the chart. PAST MEDICAL HISTORY: Significant for coronary artery disease, renal insufficiency, COPD, schizophrenia. MEDICATIONS: Medications at home included Plavix, Lipitor, Depakote, iron, prednisone. ALLERGIES: There are no known drug allergies. SOCIAL HISTORY: Significant for smoking. Family history unable to obtain. REVIEW OF SYSTEMS: I am unable to obtain from the patient who is intubated on vent. PHYSICAL EXAMINATION: On exam, he is comfortable at rest. Vital signs are stable. Heart rate is in the 60 beats per minute on dopamine. Blood pressure is 115/63, respirations 18. Chest exam reveals diminished air entry at the bases. Heart exam reveals first and second heart sounds. No gallop. Has a systolic murmur at the apex. Abdomen: Soft. Exam of extremities reveals mild bilateral edema. LAB: Show a hemoglobin of 10.7, platelet count is 302, potassium is 3.7, creatinine is 1.3. Blood gases show a pH of 7.3, pO2 of 57. ASSESSMENT: 1. COVID pneumonia. 2. History of coronary artery disease. 3. Bradycardia. 4. Hypotension. PLAN: I will treat the patient with intravenous dopamine and obtain a 2D echo in the morning. MMODL / IJN: [id number] /
--- NOTE | 2021-05-25 16:42 | P.PN ---
Subjective Progress Note Date: 05/25/21 Principal diagnosis: COVID-19 pneumonia Interval history: Patient is a 70-year-old male presented to the hospital with acute respiratory failure in this but have a evidence of multifocal pneumonia secondary to COVID-19. Patient did have worsening of his respiratory status requiring intubation on 05/19/2021, patient has been extubated on 05/24/2021 however the patient did have worsening of his respiratory status and inability intubated night of 05/24/2021 On today's evaluation that is 05/25/2021, The patient remains to be afebrile, the patient is hemodynamically stable however still requiring dopamine for his heart rate, nose and difficult purulent secretions from the ET diarrhea or any changes reported by the nursing staff Objective - Vital Signs Vital signs: Vital Signs Temp 98.0 F 05/25/21 12:00 Pulse 43 L 05/25/21 14:00 Resp 30 H 05/25/21 14:00 BP 135/75 05/25/21 14:00 Pulse Ox 98 05/25/21 14:00 Intake & Output 05/24/21 05/25/21 05/25/21 18:59 06:59 18:59 Intake Total 1815 1585.710 710.688 Output Total 690 1055 1960 Balance 1125 530.710 -1249.312 Weight 68 kg Intake: IV 1650 1550 600 Dextrose 5% in Water 1, 1650 1275 600 000 ml @ 75 mls/hr IV . [id number] [facility] Rx#:[id number] Piperacillin-Tazobactam 3 75 .375 gm In Sodium Chloride 0.9% 100 ml @ 25 mls/hr IVPB Q8HR [facility] Rx# :[id number] Valproate Sodium 250 mg 200 In Sodium Chloride 0.9% 100 ml @ 100 mls/hr IVPB Q6HR@0300,0900,1500,2100 [facility] Rx#:[id number] Intake, IV Titration 35.710 50.688 Amount Norepinephrine 4 mg In 29.998 23.148 Sodium Chloride 0.9% 250 ml @ 0.05 MCG/KG/MIN 13. 697 mls/hr IV .[id number] [facility] Rx#:[id number] propofoL 1,000 mg In 5.712 27.54 Empty Bag 1 bag @ Titrate IV .Q0M [facility] Rx#: [id number] Tube Feeding 135 Other 30 60 Output: Urine 690 1055 1960 Other: Voiding Method Indwelling Catheter Indwelling Catheter Indwelling Catheter # Voids 2 ABP, PAP, CO, CI - Last Documented Arterial Blood Pressure 151/62 - Exam General description is an elderly male intubated on the vent Respiratory system:Unlabored breathing, decreased intensity in breath sounds. No wheeze. Heart S1, S2. Regular rate and rhythm. Abdomen soft, no tenderness. Extremities: No edema feet - Labs CBC & Chem 7: 05/25/21 05:10 05/25/21 05:10 Labs: Abnormal Lab Results - Last 24 Hours (Table) 05/24/21 05/25/21 05/25/21 Range/Units 18:11 04:10 04:57 WBC (3.8-10.6) k/uL RBC (4.30-5.90) m/uL Hgb (13.0-17.5) gm/dL Hct (39.0-53.0) % Neutrophils # (1.3-7.7) k/uL Lymphocytes # (1.0-4.8) k/uL D-Dimer (<0.60) mg/L FEU ABG pH 6.97 L* (7.35-7.45) ABG pCO2 >120 H* (35-45) mmHg ABG pO2 170 H (83-108) mmHg ABG HCO3 (21-25) mmol/L ABG Total CO2 (19-24) mmol/L ABG O2 Saturation 98.0 H (94-97) % Chloride (98-107) mmol/L BUN (9-20) mg/dL Creatinine (0.66-1.25) mg/dL Glucose (74-99) mg/dL POC Glucose (mg/dL) 117 H 111 H (75-99) mg/dL Calcium (8.4-10.2) mg/dL C-Reactive Protein (<1.0) mg/dL Total Protein (6.3-8.2) g/dL Albumin (3.5-5.0) g/dL 05/25/21 05/25/21 05/25/21 Range/Units 05:10 05:10 05:10 WBC 13.0 H (3.8-10.6) k/uL RBC 3.41 L (4.30-5.90) m/uL Hgb 10.7 L (13.0-17.5) gm/dL Hct 33.7 L (39.0-53.0) % Neutrophils # 11.8 H (1.3-7.7) k/uL Lymphocytes # 0.5 L (1.0-4.8) k/uL D-Dimer 1.84 H (<0.60) mg/L FEU ABG pH (7.35-7.45) ABG pCO2 (35-45) mmHg ABG pO2 (83-108) mmHg ABG HCO3 (21-25) mmol/L ABG Total CO2 (19-24) mmol/L ABG O2 Saturation (94-97) % Chloride 109 H (98-107) mmol/L BUN 27 H (9-20) mg/dL Creatinine 1.36 H (0.66-1.25) mg/dL Glucose 122 H (74-99) mg/dL POC Glucose (mg/dL) (75-99) mg/dL Calcium 8.1 L (8.4-10.2) mg/dL C-Reactive Protein 1.9 H (<1.0) mg/dL Total Protein 5.2 L (6.3-8.2) g/dL Albumin 2.3 L (3.5-5.0) g/dL 05/25/21 Range/Units 05:32 WBC (3.8-10.6) k/uL RBC (4.30-5.90) m/uL Hgb (13.0-17.5) gm/dL Hct (39.0-53.0) % Neutrophils # (1.3-7.7) k/uL Lymphocytes # (1.0-4.8) k/uL D-Dimer (<0.60) mg/L FEU ABG pH 7.30 L (7.35-7.45) ABG pCO2 57 H (35-45) mmHg ABG pO2 57 L* (83-108) mmHg ABG HCO3 28 H (21-25) mmol/L ABG Total CO2 30 H (19-24) mmol/L ABG O2 Saturation 87.5 L (94-97) % Chloride (98-107) mmol/L BUN (9-20) mg/dL Creatinine (0.66-1.25) mg/dL Glucose (74-99) mg/dL POC Glucose (mg/dL) (75-99) mg/dL Calcium (8.4-10.2) mg/dL C-Reactive Protein (<1.0) mg/dL Total Protein (6.3-8.2) g/dL Albumin (3.5-5.0) g/dL Microbiology - Last 24 Hours (Table) 05/25/21 04:54 Sputum Culture - Preliminary Sputum 05/19/21 18:56 Blood Culture - Preliminary Blood No Growth after 120 hours 05/19/21 18:56 Blood Culture - Preliminary Blood No Growth after 120 hours Assessment and Plan (1) Aspiration pneumonia Current Visit: Yes Status: Acute Code(s): J69.0 - PNEUMONITIS DUE TO INHALATION OF FOOD AND VOMIT SNOMED Code(s): 563225020 (2) COVID-19 Current Visit: Yes Status: Acute Code(s): U07.1 - COVID-19 SNOMED Code(s): 174411201 Plan: Patient with acute respiratory failure which is multifactorial in this patient with initial diagnosis of COVID-19 pneumonia in this patient did have significant worsening of his respiratory status requiring intubation and concern for possible aspiration pneumonitis, patient now with worsening of respiratory status requiring intubation sputum culture has been requested those will be followed Zosyn will be continued and antibiotic adjusted further on the basis of culture Time with Patient: Less than 30
[2021-05-25 18:12] LABS: Glucose,Whole Blood 84 mg/dL (75-99)
[2021-05-25] MEDS: ATORVASTATIN 20 MG TAB PO SCH (21:06)
[2021-05-25] MEDS ORDERED: ARTIFICIAL TEARS-HYPROMELLOSE DROPS 15 ML BTL BOTH EYES PRN (22:31)
[2021-05-25 23:49] LABS: Glucose,Whole Blood 89 mg/dL (75-99)
[2021-05-26] MEDS: VALPROATE SODIUM 250 MG in SODIUM CHLORIDE 0.9% 100 ML IVPB SCH ×4 (04:02→19:57)
[2021-05-26 04:32] LABS: Basophils # (A) 0.1 k/uL (0-0.2); Basophils % (A) 1 %; Eosinophils # (A) 0.1 k/uL (0-0.7); Eosinophils % (A) 1 %; HCT 34.8 % (39.0-53.0); HGB 11.9 gm/dL (13.0-17.5); Lymphocytes # (A) 0.4 k/uL (1.0-4.8); Lymphocytes % (A) 4 %; MCH 31.9 pg (25.0-35.0); MCHC 34.3 g/dL (31.0-37.0); Mean Platelet Volume 7.9; Monocytes # (A) 0.4 k/uL (0-1.0); Monocytes % (A) 4 %; Neutrophils # (A) 8.6 k/uL (1.3-7.7); Neutrophils % (A) 90 %; Platelet Count 293 k/uL (150-450); Poikilocytosis Slight; RBC 3.74 m/uL (4.30-5.90); RDW 14.6 % (11.5-15.5); WBC 9.6 k/uL (3.8-10.6)
[2021-05-26 04:36] LABS: MCV 92.9 fL (80.0-100.0)
[2021-05-26 04:58] LABS: Albumin 2.5 g/dL (3.5-5.0); Calcium 8.5 mg/dL (8.4-10.2); Potassium 3.2 mmol/L (3.5-5.1); Total Bilirubin 0.5 mg/dL (0.2-1.3); Total Protein 5.7 g/dL (6.3-8.2)
[2021-05-26 05:49] LABS: ABG Base Excess 5.3 mmol/L; ABG HCO3 29 mmol/L (21-25); ABG PCO2 40 mmHg (35-45); ABG PH 7.47 (7.35-7.45); ABG PO2 88 mmHg (83-108); ABG TCO2 30 mmol/L (19-24); Allen Test Performed? Yes
[2021-05-26 05:49] LABS: Glucose,Whole Blood 100 mg/dL (75-99)
[2021-05-26] MEDS: POTASSIUM BICARBONATE/CIT AC 20 MEQ TABLET.EFF NG-TUBE SCH ×2 (06:50→08:06)
[2021-05-26] MEDS: ALBUTEROL HFA INHALER INHALATION SCH ×4 (07:18→20:00)
--- NOTE | 2021-05-26 07:56 | P.PN ---
Subjective Progress Note Date: 05/26/21 Principal diagnosis: Sinus bradycardia This is a 70-year-old female patient with coronary artery disease as well as multiple comorbid conditions was admitted to the intensive care unit with change in mental status and we consulted to see the patient mainly because of sinus bradycardia. Subsequently the patient was started on dopamine with improvement in the heart rate. Also the patient required intubation and mechanical ventilation because she developed acute hypoxic respiratory failure secondary to COVID-19 pneumonia. The patient continues to be intubated and she is in process of having a trach tube. She continues to be on dopamine at this point. Once she have trach to both right to wean the patient from dopamine. Beside that going to rule out any thyroid disease by obtaining TSH and free T4. Please note that the patient is not on any AV sherri mikaela agents at this point. The last echo showed normal left ventricular systolic function. Objective - Vital Signs Vital signs: Vital Signs Temp 97.7 F 05/26/21 00:00 Pulse 68 05/26/21 07:00 Resp 24 05/26/21 07:00 BP 104/70 05/26/21 07:00 Pulse Ox 98 05/26/21 07:00 Intake & Output 05/25/21 05/26/21 05/26/21 18:59 06:59 18:59 Intake Total 070.759 4856.073 75 Output Total 2460 1195 60 Balance -1532.564 29.073 15 Weight 72 kg Intake: IV 750 1125 75 Dextrose 5% in Water 1, 750 825 75 000 ml @ 75 mls/hr IV . [id number] [facility] Rx#:[id number] Piperacillin-Tazobactam 3 100 .375 gm In Sodium Chloride 0.9% 100 ml @ 25 mls/hr IVPB Q8HR [facility] Rx# :[id number] Valproate Sodium 250 mg 200 In Sodium Chloride 0.9% 100 ml @ 100 mls/hr IVPB Q6HR@0300,0900,1500,2100 [facility] Rx#:[id number] Intake, IV Titration 117.436 99.073 Amount Norepinephrine 4 mg In 23.148 11.645 Sodium Chloride 0.9% 250 ml @ 0.05 MCG/KG/MIN 13. 697 mls/hr IV .[id number] [facility] Rx#:[id number] propofoL 1,000 mg In 94.288 87.428 Empty Bag 1 bag @ Titrate IV .Q0M [facility] Rx#: [id number] Other 60 Output: Urine 2460 1195 60 Other: Voiding Method Indwelling Catheter Indwelling Catheter # Voids 2 ABP, PAP, CO, CI - Last Documented Arterial Blood Pressure 115/61 - Constitutional General appearance: Present: no acute distress - Labs CBC & Chem 7: 05/26/21 04:00 05/26/21 04:00 Labs: Abnormal Lab Results - Last 24 Hours (Table) 05/26/21 05/26/21 05/26/21 Range/Units 04:00 04:00 04:00 RBC 3.74 L (4.30-5.90) m/uL Hgb 11.9 L (13.0-17.5) gm/dL Hct 34.8 L (39.0-53.0) % Neutrophils # 8.6 H (1.3-7.7) k/uL Lymphocytes # 0.4 L (1.0-4.8) k/uL D-Dimer 0.68 H (<0.60) mg/L FEU ABG pH (7.35-7.45) ABG HCO3 (21-25) mmol/L ABG Total CO2 (19-24) mmol/L ABG O2 Saturation (94-97) % Potassium 3.2 L (3.5-5.1) mmol/L Chloride 110 H (98-107) mmol/L BUN 23 H (9-20) mg/dL Glucose 111 H (74-99) mg/dL POC Glucose (mg/dL) (75-99) mg/dL C-Reactive Protein 2.0 H (<1.0) mg/dL Total Protein 5.7 L (6.3-8.2) g/dL Albumin 2.5 L (3.5-5.0) g/dL 05/26/21 05/26/21 Range/Units 05:45 05:47 RBC (4.30-5.90) m/uL Hgb (13.0-17.5) gm/dL Hct (39.0-53.0) % Neutrophils # (1.3-7.7) k/uL Lymphocytes # (1.0-4.8) k/uL D-Dimer (<0.60) mg/L FEU ABG pH 7.47 H (7.35-7.45) ABG HCO3 29 H (21-25) mmol/L ABG Total CO2 30 H (19-24) mmol/L ABG O2 Saturation 98.0 H (94-97) % Potassium (3.5-5.1) mmol/L Chloride (98-107) mmol/L BUN (9-20) mg/dL Glucose (74-99) mg/dL POC Glucose (mg/dL) 100 H (75-99) mg/dL C-Reactive Protein (<1.0) mg/dL Total Protein (6.3-8.2) g/dL Albumin (3.5-5.0) g/dL Microbiology - Last 24 Hours (Table) 05/25/21 04:54 Gram Stain - Preliminary Sputum Sputum Culture - Preliminary 05/19/21 18:56 Blood Culture - Final Blood No Growth after 144 hours 05/19/21 18:56 Blood Culture - Final Blood No Growth after 144 hours Assessment and Plan Assessment: Assessment #1 acute hypoxic respiratory failure #2 COVID-19 pneumonia #3 change in mental status #4 sinus bradycardia of unknown etiology #5 coronary artery disease #6 multiple comorbid conditions Plan #1 rule out thyroid disease. We'll obtain TSH and free T4 #2 the right to wean the patient from dopamine #3 the bradycardia could be related to the coated infection #4 avoid any AV sherri mikaela agents #6 follow-up with the patient
[2021-05-26] MEDS: HYDROCORTISONE SUCCINATE 100 MG/2 ML VIAL IV SCH ×2 (08:06→19:57)
[2021-05-26] MEDS: PANTOPRAZOLE 40 MG/10 ML VIAL IVP SCH (08:06)
[2021-05-26] MEDS: NYSTATIN 100,000 UNIT/ML SUSP 500,000 UNIT/5 ML CUP PO SCH ×4 (08:07→19:58)
[2021-05-26] MEDS: PIPERACILLIN-TAZOBACTAM 3.375 GM in SODIUM CHLORIDE 0.9% 100 ML IVPB SCH ×5 (08:07→23:51)
[2021-05-26 09:42] LABS: T4, Free (Free Thyroxine) 0.85 ng/dL (0.78-2.19)
--- NOTE | 2021-05-26 09:54 | XR ---
EXAMINATION TYPE: XR chest 1V portable DATE OF EXAM: 05/26/2021 Comparison: 05/25/2021 Clinical History: 70-year-old male covid Findings: ET tube satisfactory. NG tube courses below the diaphragm. Hyperinflation. Heart normal size. Opacifi cation along the periphery and basilar aspect of the right lung and also at the left base. Aeration i s improving on the right compared to prior exam. Right IJ CVC tip at the caval atrial junction. Impression: COPD right greater than left COVID infiltrates. Aeration is improving now on the right.
[2021-05-26] MEDS: ENOXAPARIN 40 MG/0.4 ML SYRINGE SQ SCH (10:05)
--- NOTE | 2021-05-26 10:36 | P.PN ---
Subjective Principal diagnosis: Patient is seen for follow-up for acute kidney injury and hyponatremia. Renal function has improved with serum creatinine down to 1.18 mg/dL. Case is discussed with nursing staff. Objective - Vital Signs Vital signs: Vital Signs Temp 98.0 F 05/26/21 08:00 Pulse 82 05/26/21 09:00 Resp 30 H 05/26/21 09:00 BP 117/75 05/26/21 09:00 Pulse Ox 97 05/26/21 09:00 Intake & Output 05/25/21 05/26/21 05/26/21 18:59 06:59 18:59 Intake Total 680.648 8074.073 225 Output Total 2460 1195 285 Balance -1532.564 29.073 -60 Weight 72 kg Intake: IV 750 1125 225 Dextrose 5% in Water 1, 750 825 225 000 ml @ 75 mls/hr IV . [id number] [facility] Rx#:[id number] Piperacillin-Tazobactam 3 100 .375 gm In Sodium Chloride 0.9% 100 ml @ 25 mls/hr IVPB Q8HR [facility] Rx# :[id number] Valproate Sodium 250 mg 200 In Sodium Chloride 0.9% 100 ml @ 100 mls/hr IVPB Q6HR@0300,0900,1500,2100 [facility] Rx#:[id number] Intake, IV Titration 117.436 99.073 Amount Norepinephrine 4 mg In 23.148 11.645 Sodium Chloride 0.9% 250 ml @ 0.05 MCG/KG/MIN 13. 697 mls/hr IV .[id number] [facility] Rx#:[id number] propofoL 1,000 mg In 94.288 87.428 Empty Bag 1 bag @ Titrate IV .Q0M [facility] Rx#: [id number] Other 60 Output: Urine 2460 1195 285 Other: Voiding Method Indwelling Catheter Indwelling Catheter Indwelling Catheter # Voids 2 ABP, PAP, CO, CI - Last Documented Arterial Blood Pressure 114/67 - Exam Patient is not examined due to covid 19 19 isolation. Case is discussed with nursing staff - Labs CBC & Chem 7: 05/26/21 04:00 05/26/21 04:00 Labs: Abnormal Lab Results - Last 24 Hours (Table) 05/26/21 05/26/21 05/26/21 Range/Units 04:00 04:00 04:00 RBC 3.74 L (4.30-5.90) m/uL Hgb 11.9 L (13.0-17.5) gm/dL Hct 34.8 L (39.0-53.0) % Neutrophils # 8.6 H (1.3-7.7) k/uL Lymphocytes # 0.4 L (1.0-4.8) k/uL D-Dimer 0.68 H (<0.60) mg/L FEU ABG pH (7.35-7.45) ABG HCO3 (21-25) mmol/L ABG Total CO2 (19-24) mmol/L ABG O2 Saturation (94-97) % Potassium 3.2 L (3.5-5.1) mmol/L Chloride 110 H (98-107) mmol/L BUN 23 H (9-20) mg/dL Glucose 111 H (74-99) mg/dL POC Glucose (mg/dL) (75-99) mg/dL C-Reactive Protein 2.0 H (<1.0) mg/dL Total Protein 5.7 L (6.3-8.2) g/dL Albumin 2.5 L (3.5-5.0) g/dL Free T3 pg/mL (2.8-5.3) pg/ml 05/26/21 05/26/21 05/26/21 Range/Units 04:00 05:45 05:47 RBC (4.30-5.90) m/uL Hgb (13.0-17.5) gm/dL Hct (39.0-53.0) % Neutrophils # (1.3-7.7) k/uL Lymphocytes # (1.0-4.8) k/uL D-Dimer (<0.60) mg/L FEU ABG pH 7.47 H (7.35-7.45) ABG HCO3 29 H (21-25) mmol/L ABG Total CO2 30 H (19-24) mmol/L ABG O2 Saturation 98.0 H (94-97) % Potassium (3.5-5.1) mmol/L Chloride (98-107) mmol/L BUN (9-20) mg/dL Glucose (74-99) mg/dL POC Glucose (mg/dL) 100 H (75-99) mg/dL C-Reactive Protein (<1.0) mg/dL Total Protein (6.3-8.2) g/dL Albumin (3.5-5.0) g/dL Free T3 pg/mL 1.5 L (2.8-5.3) pg/ml Microbiology - Last 24 Hours (Table) 05/25/21 04:54 Gram Stain - Preliminary Sputum Sputum Culture - Preliminary 05/19/21 18:56 Blood Culture - Final Blood No Growth after 144 hours 05/19/21 18:56 Blood Culture - Final Blood No Growth after 144 hours Assessment and Plan Assessment: #1 acute kidney injury secondary to hemodynamic ATN. Peak creatinine was 2.07. #2 chronic kidney disease stage III A secondary to nephrosclerosis with a baseline creatinine of 1.2-1.4 MG per DL. #3 COVID-19 pneumonia #4 hypernatremia secondary to volume depletion #5 hyperkalemia secondary to acute kidney injury, resolved Plan: 1. Continue D5W at 75 mL an hour 2. Replace potassium 3. Repeat labs in a.m.
--- NOTE | 2021-05-26 10:43 | P.PN ---
Subjective Progress Note Date: 05/26/21 Principal diagnosis: Respiratory failure Acute hypoxic respiratory failure secondary to acute COVID-19 pneumonia On 05/23/2021 patient seen in follow-up in the intensive care unit. He remains intubated, on mechanical ventilator, currently on assist control mode of ventilation with a rate of 36, tidal volume 375, FiO2 of 40% and PEEP of 5. This morning's blood gas shows pO2 of 136, pCO2 of 40, and pH of 7.42, this was done and above-mentioned vent settings. Today's chest x-ray has been reviewed showing chronic emphysematous and pulmonary fibrotic changes with small bila teral pleural effusions and bilateral multifocal opacities, without significant change compared to the prior study. Today's labs have been reviewed, white blood cell count is 5.5, hemoglobin is 8.9, sodium is 147, improving potassium is 3.5, chloride is 118, CO2 is 27, BUN 37, creatinine is 1.44. Patient is receiving D5W 1 50 ML per hour, nephrology is managing, he remains on hydrocortisone 100 mg every 8 hours, his been off vasopressor support for 48 hours. He has had no fever or chills. He remains on Zosyn. Sputum culture showed Romelia species, blood cultures have been negative. Neurologically patient has been off sedation for the past 24 hours. However patient is not following commands, although he is awake, at times he becomes restless, his been getting intermittent doses of when necessary on as-needed basis. We understand patient has underlying history of dementia however his baseline mental status is not known to us, his level of consciousness is certainly improved, however patient has not been able to follow any instructions. And for that reason patient has not been able to tolerate weaning trials, last night he had to be placed on assist-control mode of ventilation because he was extremely anxious, she did tolerate pressure support of 14 and IMV of 10 for a couple of hours, however became very agitated, and was placed back on assist control mode of ventilation. he is tolerating tube feedings. Patient was reevaluated today on 05/24/2021, remains intubated and mechanically ventilated. Patient has been off sedation for the last few days, and he is on assist control rate of 56 tidal volume 375 FiO2 40% PEEP of 5. ABG today showed a pO2 of 96 pCO2 41 pH of 7.44. His electrolytes are normal, BUN is 33 creatinine is 1.28, his chest x-ray is showing improvement in his by basilar infiltrates. Patient is awake, he is actually responsive to all stimuli, squeezes hands, wiggling toes, sticks out tongue up on request, patient is generally weak however. Hence I have recommended that the patient goes on a pressure support of 8 and CPAP, and if tolerated, may consider weaning and extubating this patient today. Patient remains on antibiotics, he is receiving Zosyn. Reevaluated today on 05/25/2021, patient remains in the ICU, he was extubated yesterday, however the patient was unable to clear his secretions, and he developed significant airspace/ disease/pneumonia in the right lung, required reintubation early this morning. Patient is now on assist control rate of 30 volume 350 FiO2 60% and PEEP of 5. ABG this morning on 50% showed a pO2 of 57 pCO2 of 57 pH of 7.30, and the FiO2 was increased to 60%. Electrolytes are normal, renal profile is a bit worse, but nonetheless remains stable with a creatinine of 1.36. Patient had a creatinine of 1.28 yesterday. However he had creatinine as high as 2.07. There is worsening chest x-ray appearance today, there is consolidation and atelectasis and possibly some volume loss in the right hemithorax which is worse today compared to yesterday. At any rate patient is scheduled to undergo tracheostomy and PEG tube placement in the next 24 hours. General surgery was consulted on this patient. Patient is requiring propofol, he is on D5W at 75 mL per hour, he is also on Zosyn, and on propofol at 20 mcg/kg/m, requiring a very small dose of norepinephrine 0.005. This will likely be discontinued if we could cut down on the propofol. Progress note dated 05/26/2021. This is a 71-year-old male who was admitted to the hospital on May 17. He came with a diagnosis of coronavirus associated pneumonia. The patient came to the intensive care unit on May 18. He was intubated on the following day. He was initially extubated on the , and reintubated again on 05/25/2021. Today, I spoke to his sister, Yessica, . She wanted to talk to somebody before the planned tracheostomy and PEG tube placement today. Currently, he remains on the volume assist control mode, rate 30, tidal volume 350, FiO2 60%, and PEEP of 5. Blood gases show a pO2 of 88, CO2 40, pH 7.47. T ube feedings are currently on hold. The patient's getting dextrose, at 75 mL an hour, dopamine at 5 mcg/kg/m, propofol at 35 mcg/kg/m, and norepinephrine is currently off. Chest x-ray shows improving aeration, and right greater than left infiltrates. White count 9.6, hemoglobin 11.9, hematocrit 34.8, and platelet count 293,000. D-dimer is 0.68. Sodium 142, potassium 3.2, chlorides 110, CO2 26, anion gap 6, BUN 23, and creatinine 1.18. Objective - Vital Signs Vital signs: Vital Signs Temp 98.0 F 05/26/21 08:00 Pulse 82 05/26/21 09:00 Resp 30 H 05/26/21 09:00 BP 117/75 05/26/21 09:00 Pulse Ox 97 05/26/21 09:00 Intake & Output 05/25/21 05/26/21 05/26/21 18:59 06:59 18:59 Intake Total 177.904 8979.073 225 Output Total 2460 1195 285 Balance -1532.564 29.073 -60 Weight 72 kg Intake: IV 750 1125 225 Dextrose 5% in Water 1, 750 825 225 000 ml @ 75 mls/hr IV . [id number] [facility] Rx#:[id number] Piperacillin-Tazobactam 3 100 .375 gm In Sodium Chloride 0.9% 100 ml @ 25 mls/hr IVPB Q8HR [facility] Rx# :[id number] Valproate Sodium 250 mg 200 In Sodium Chloride 0.9% 100 ml @ 100 mls/hr IVPB Q6HR@0300,0900,1500,2100 [facility] Rx#:[id number] Intake, IV Titration 117.436 99.073 Amount Norepinephrine 4 mg In 23.148 11.645 Sodium Chloride 0.9% 250 ml @ 0.05 MCG/KG/MIN 13. 697 mls/hr IV .[id number] [facility] Rx#:[id number] propofoL 1,000 mg In 94.288 87.428 Empty Bag 1 bag @ Titrate IV .Q0M [facility] Rx#: [id number] Other 60 Output: Urine 2460 1195 285 Other: Voiding Method Indwelling Catheter Indwelling Catheter Indwelling Catheter # Voids 2 ABP, PAP, CO, CI - Last Documented Arterial Blood Pressure 114/67 - Exam No acute distress, sedated, with an orally placed endotracheal tube and NG tube HEENT examination is grossly unremarkable. . Neck supple. Full range of motion. No adenopathy thyromegaly or neck vein distention. Cardiovascular examination reveals regular rhythm rate. S1-S2 normal. No S3 or S4. No discernible murmur noted. Heart sounds are distant. Heart rate 82 bpm. Lungs reveal diffuse bilateral rhonchi. Breath sounds equal bilaterally. No crackles. Abdomen soft bowel sounds are heard. No masses or tenderness. Extremities are intact. No cyanosis clubbing or edema. Skin is without rash or lesion. Neurologic examination cannot be properly assessed as the patient's currently sedated on propofol. - Labs CBC & Chem 7: 05/26/21 04:00 05/26/21 04:00 Labs: Abnormal Lab Results - Last 24 Hours (Table) 05/26/21 05/26/21 05/26/21 Range/Units 04:00 04:00 04:00 RBC 3.74 L (4.30-5.90) m/uL Hgb 11.9 L (13.0-17.5) gm/dL Hct 34.8 L (39.0-53.0) % Neutrophils # 8.6 H (1.3-7.7) k/uL Lymphocytes # 0.4 L (1.0-4.8) k/uL D-Dimer 0.68 H (<0.60) mg/L FEU ABG pH (7.35-7.45) ABG HCO3 (21-25) mmol/L ABG Total CO2 (19-24) mmol/L ABG O2 Saturation (94-97) % Potassium 3.2 L (3.5-5.1) mmol/L Chloride 110 H (98-107) mmol/L BUN 23 H (9-20) mg/dL Glucose 111 H (74-99) mg/dL POC Glucose (mg/dL) (75-99) mg/dL C-Reactive Protein 2.0 H (<1.0) mg/dL Total Protein 5.7 L (6.3-8.2) g/dL Albumin 2.5 L (3.5-5.0) g/dL Free T3 pg/mL (2.8-5.3) pg/ml 05/26/21 05/26/21 05/26/21 Range/Units 04:00 05:45 05:47 RBC (4.30-5.90) m/uL Hgb (13.0-17.5) gm/dL Hct (39.0-53.0) % Neutrophils # (1.3-7.7) k/uL Lymphocytes # (1.0-4.8) k/uL D-Dimer (<0.60) mg/L FEU ABG pH 7.47 H (7.35-7.45) ABG HCO3 29 H (21-25) mmol/L ABG Total CO2 30 H (19-24) mmol/L ABG O2 Saturation 98.0 H (94-97) % Potassium (3.5-5.1) mmol/L Chloride (98-107) mmol/L BUN (9-20) mg/dL Glucose (74-99) mg/dL POC Glucose (mg/dL) 100 H (75-99) mg/dL C-Reactive Protein (<1.0) mg/dL Total Protein (6.3-8.2) g/dL Albumin (3.5-5.0) g/dL Free T3 pg/mL 1.5 L (2.8-5.3) pg/ml Microbiology - Last 24 Hours (Table) 05/25/21 04:54 Gram Stain - Preliminary Sputum Sputum Culture - Preliminary 05/19/21 18:56 Blood Culture - Final Blood No Growth after 144 hours 05/19/21 18:56 Blood Culture - Final Blood No Growth after 144 hours Assessment and Plan Assessment: Acute hypoxemic respiratory failure, secondary to coronavirus associated pneumonia, status post initial intubation on May 19, extubation on May 24 and reintubation on May 25. Anticipated tracheostomy and PEG tube placement today, 05/26/2021. Acute hypercapnic respiratory failure secondary to aspiration. Hypotension, secondary to dehydration, resolved. Impaired mental status, with worsening from baseline. History of dementia and schizoaffective disorder. Acute dehydration with hypernatremia. Stage III chronic kidney disease. History of COPD. History of coronary artery disease. History of gastroesophageal reflux disease. History of hyperlipidemia. History of acute kidney injury secondary to ATN. Hyperkalemia. Hypoglycemia, resolved. Plan: Plan dated 05/26/2021. The patient will have a tracheostomy and PEG tube placement today. 2 feedings are on hold. The patient is currently weaning off of norepinephrine. The pa lynne remains on dopamine at 5 mcg/kg/m, and propofol at 35 mcg/kg/m. I did speak to the sister, Yessica, and she did agree for the tracheostomy and PEG tube placement. I did explain what this was all about. The patient may end up going to a long-term acute care center. Labs, x-rays, and medications are all reviewed. Prognosis is guarded. No additional recommendations are made. Time with Patient: Greater than 30
[2021-05-26] MEDS: FERROUS SULFATE 325 MG TAB PO SCH (10:47)
[2021-05-26] MEDS: FOLIC ACID 1 MG TAB PO SCH (10:47)
--- NOTE | 2021-05-26 11:00 | ECHOF ---
Referral Reason:bradycardia MEASUREMENTS -------- HEIGHT: 180.3 cm WEIGHT: 67.6 kg BP: 112/59 IVSd: 1.4 cm (0.6 - 1.1) LVIDd: 3.4 cm (3.9 - 5.3) LVPWd: 1.5 cm (0.6 - 1.1) EDV(Teich): 46 ml IVSs: 1.7 cm LVIDs: 2.1 cm LVPWs: 1.4 cm %IVS Thck: 24 % ESV(Teich): 15 ml EF(Teich): 67 % %FS: 36 % SV(Teich): 31 ml LA Diam: 3.2 cm (2.7 - 3.8) RVIDd: 3.4 cm (< 3.3) Ao Diam: 3.5 cm (2.0 - 3.7) AV Cusp: 2.2 cm (1.5 - 2.6) EPSS: 0.3 cm TR Vmax: 2.07 m/s TR maxP.12 mmHg RAP: 15.00 mmHg RVSP: 32.12 mmHg MV EF SLOPE: 272.70 mm/s (70 - 150) MV EXCURSION: 18.81 mm (> 18.000) FINDINGS -------- Sinus rhythm. This was a technically adequate study. The left ventricular size is normal. There is moderate concentric left ventricular hypertrophy. O verall left ventricular systolic function is normal with, an EF between 55 - 60 %. The right ventricle is normal in size. The left atrium is normal in size. The right atrium is normal in size. Interatrial and interventricular septum intact. The aortic valve is trileaflet, and appears structurally normal. No aortic stenosis or regurgitation. The mitral valve is normal. Mild tricuspid regurgitation present. Right ventricular systolic pressure is normal at < 35 mmHg. The pulmonic valve is normal. The aortic root size is normal. The inferior vena cava is dilated with no significant inspiratory collapse which is consistent estima kendra right atrial pressure of >15 mmHg. There is a moderate pericardial effusion is located near the right ventricle. CONCLUSIONS -------- 1. The left ventricular size is normal. 2. There is moderate concentric left ventricular hypertrophy. 3. Overall left ventricular systolic function is normal with, an EF between 55 - 60 %. 4. The right ventricle is normal in size. 5. Mild tricuspid regurgitation present. 6. The inferior vena cava is dilated with no significant inspiratory collapse which is consistent est imated right atrial pressure of >15 mmHg. 7. There is a moderate pericardial effusion is located near the right ventricle. HOOP RIVETER: Claire Melvin RDCS
[2021-05-26 11:41] LABS: Glucose,Whole Blood 83 mg/dL (75-99)
[2021-05-26] MEDS ORDERED: fentaNYL (PF) 50 MCG/ML 2 ML AMP ONE (12:55)
[2021-05-26] MEDS ORDERED: ROCURONIUM 10 MG/ML (5 ML VIAL) IV ONE (12:55)
[2021-05-26] MEDS ORDERED: PROPOFOL 10 MG/ML 20 ML VIAL IV ONE (12:55)
[2021-05-26] MEDS: DEXTROSE 5% IN WATER 1,000 ML IV SCH ×2 (14:54→23:52)
--- NOTE | 2021-05-26 15:34 | P.OP ---
Date of Procedure: 05/26/21 Preoperative Diagnosis: Respiratory failure Malnutrition Postoperative Diagnosis: Respiratory failure Malnutrition Procedure(s) Performed: Tracheostomy PEG tube Anesthesia: [place] Surgeon: Cristobal Moscoso Estimated Blood Loss (ml): 5 Pathology: none sent Condition: stable Disposition: ICU Description of Procedure: The patient's placed on the bed in the supine position. The patient received general anesthesia. The neck was prepped and draped in usual sterile fashion. A standard transverse skin incision was made approximately 2 cm above the sternal notch. Using electrocautery the subcutaneous tissues were divided. The platysma was divided. A Wheatlander retractor was placed in the wound. Next the strap muscles were divided in the midline. Another weatlander retractor was placed the wound. The pretracheal fat was then divided with left cautery. The trachea was exposed. At this point the [employer] advance the and the tracheal tube into the right mainstem bronchus. The balloon was inflated. A tracheotomy was then performed between the second and third tracheal rings. The perivascular tissues a gracilis the trachea. The endotracheal tube was brought back under direct vision. And then the #8 Portex tracheostomy tube was placed into the trachea. End-tidal CO2 was confirmed. The patient had been connected to the ventilator. The patient was ventilated satisfactory. The skin incision site was then closed with 3-0 nylon after the retractors were withdrawn. An umbilical tie was used to secure the tracheostomy tube. Next the gastroscope placed oropharynx passed in the esophagus and stomach. There is no evidence of any outlet obstruction. Stomach was insufflated with air. The light reflux seen the anterior abdominal wall. The abdomen was prepped and draped usual fashion. The skin was incised. And the needles placed and stomach under direct visualization. The needle was snared. And the wires placed through the needle and the wire was snared and brought the oropharynx. The PEG tube was placed over top the wire brought down to the stomach. The PEG tube was secured. At the 3 cm benjamin. The one-piece bolster was used. Patient tolerated procedure well.
[2021-05-26] MEDS: POTASSIUM CHLORIDE 20 MEQ in WATER FOR INJECTION 1 100ML.BAG IVPB SCH ×2 (16:11→18:13)
[2021-05-26] MEDS ORDERED: SODIUM CHLORIDE 0.9% 2,000 ML IV ONE (16:57)
[2021-05-26 17:59] LABS: Glucose,Whole Blood 84 mg/dL (75-99)
[2021-05-26] MEDS: NOREPINEPHRINE 4 MG in SODIUM CHLORIDE 0.9% 250 ML IV SCH (18:39)
[2021-05-26] MEDS: ATORVASTATIN 20 MG TAB PO SCH ×2 (19:57→20:11)
--- NOTE | 2021-05-26 21:42 | P.PN ---
Subjective Progress Note Date: 05/26/21 Principal diagnosis: COVID-19 pneumonia Interval history: Patient is a 70-year-old male presented to the hospital with acute respiratory failure in this but have a evidence of multifocal pneumonia secondary to COVID-19. Patient did have worsening of his respiratory status requiring intubation on 05/19/2021, patient has been extubated on 05/24/2021 however the patient did have worsening of his respiratory status and inability intubated night of 05/24/2021 On today's evaluation that is 05/26/2021, The patient continues to be afebrile, the patient is hemodynamically stable is still requiring dopamine for his heart rate, no purulent secretions from the ET diarrhea has been reported by the nursing staff, surgery has been consulted for trach and PEG Objective - Vital Signs Vital signs: Vital Signs Temp 96 F L 05/26/21 20:00 Pulse 58 L 05/26/21 20:15 Resp 12 05/26/21 20:15 BP 103/61 05/26/21 20:15 Pulse Ox 97 05/26/21 20:15 Intake & Output 05/26/21 05/26/21 05/27/21 06:59 18:59 06:59 Intake Total 3375.792 1293.592 150 Output Total 1195 1077 95 Balance 29.073 1045.592 55 Weight 72 kg 72 kg Intake: IV 1125 1975 150 Dextrose 5% in Water 1, 825 975 150 000 ml @ 75 mls/hr IV . [id number] [facility] Rx#:[id number] Piperacillin-Tazobactam 3 100 .375 gm In Sodium Chloride 0.9% 100 ml @ 25 mls/hr IVPB Q8HR [facility] Rx# :[id number] Sodium Chloride 0.9% 2, 1000 000 ml @ 999 mls/hr IV . Q2H1M [facility] Rx#:[id number] Valproate Sodium 250 mg 200 In Sodium Chloride 0.9% 100 ml @ 100 mls/hr IVPB Q6HR@0300,0900,1500,2100 [facility] Rx#:[id number] Intake, IV Titration 99.073 147.592 Amount Norepinephrine 4 mg In 11.645 Sodium Chloride 0.9% 250 ml @ 0.05 MCG/KG/MIN 13. 697 mls/hr IV .[id number] [facility] Rx#:[id number] propofoL 1,000 mg In 87.428 147.592 Empty Bag 1 bag @ Titrate IV .Q0M [facility] Rx#: [id number] Output: Urine 1195 1075 95 Estimated Blood Loss 2 Other: Voiding Method Indwelling Catheter Indwelling Catheter ABP, PAP, CO, CI - Last Documented Arterial Blood Pressure 114/59 - Exam General description is an elderly male intubated on the vent Respiratory system:Unlabored breathing, decreased intensity in breath sounds. No wheeze. Heart S1, S2. Regular rate and rhythm. Abdomen soft, no tenderness. Extremities: No edema feet - Labs CBC & Chem 7: 05/26/21 04:00 05/26/21 15:17 Labs: Abnormal Lab Results - Last 24 Hours (Table) 05/26/21 05/26/21 05/26/21 Range/Units 04:00 04:00 04:00 RBC 3.74 L (4.30-5.90) m/uL Hgb 11.9 L (13.0-17.5) gm/dL Hct 34.8 L (39.0-53.0) % Neutrophils # 8.6 H (1.3-7.7) k/uL Lymphocytes # 0.4 L (1.0-4.8) k/uL D-Dimer 0.68 H (<0.60) mg/L FEU ABG pH (7.35-7.45) ABG HCO3 (21-25) mmol/L ABG Total CO2 (19-24) mmol/L ABG O2 Saturation (94-97) % Potassium 3.2 L (3.5-5.1) mmol/L Chloride 110 H (98-107) mmol/L BUN 23 H (9-20) mg/dL Glucose 111 H (74-99) mg/dL POC Glucose (mg/dL) (75-99) mg/dL C-Reactive Protein 2.0 H (<1.0) mg/dL Total Protein 5.7 L (6.3-8.2) g/dL Albumin 2.5 L (3.5-5.0) g/dL Free T3 pg/mL (2.8-5.3) pg/ml 05/26/21 05/26/21 05/26/21 Range/Units 04:00 05:45 05:47 RBC (4.30-5.90) m/uL Hgb (13.0-17.5) gm/dL Hct (39.0-53.0) % Neutrophils # (1.3-7.7) k/uL Lymphocytes # (1.0-4.8) k/uL D-Dimer (<0.60) mg/L FEU ABG pH 7.47 H (7.35-7.45) ABG HCO3 29 H (21-25) mmol/L ABG Total CO2 30 H (19-24) mmol/L ABG O2 Saturation 98.0 H (94-97) % Potassium (3.5-5.1) mmol/L Chloride (98-107) mmol/L BUN (9-20) mg/dL Glucose (74-99) mg/dL POC Glucose (mg/dL) 100 H (75-99) mg/dL C-Reactive Protein (<1.0) mg/dL Total Protein (6.3-8.2) g/dL Albumin (3.5-5.0) g/dL Free T3 pg/mL 1.5 L (2.8-5.3) pg/ml 05/26/21 Range/Units 15:17 RBC (4.30-5.90) m/uL Hgb (13.0-17.5) gm/dL Hct (39.0-53.0) % Neutrophils # (1.3-7.7) k/uL Lymphocytes # (1.0-4.8) k/uL D-Dimer (<0.60) mg/L FEU ABG pH (7.35-7.45) ABG HCO3 (21-25) mmol/L ABG Total CO2 (19-24) mmol/L ABG O2 Saturation (94-97) % Potassium 3.3 L (3.5-5.1) mmol/L Chloride (98-107) mmol/L BUN (9-20) mg/dL Glucose (74-99) mg/dL POC Glucose (mg/dL) (75-99) mg/dL C-Reactive Protein (<1.0) mg/dL Total Protein (6.3-8.2) g/dL Albumin (3.5-5.0) g/dL Free T3 pg/mL (2.8-5.3) pg/ml Microbiology - Last 24 Hours (Table) 05/25/21 04:54 Gram Stain - Preliminary Sputum Sputum Culture - Preliminary Gram Neg Bacilli 05/19/21 18:56 Blood Culture - Final Blood No Growth after 144 hours 05/19/21 18:56 Blood Culture - Final Blood No Growth after 144 hours Assessment and Plan (1) Aspiration pneumonia Current Visit: Yes Status: Acute Code(s): J69.0 - PNEUMONITIS DUE TO INHALATION OF FOOD AND VOMIT SNOMED Code(s): 613644763 (2) COVID-19 Current Visit: Yes Status: Acute Code(s): U07.1 - COVID-19 SNOMED Code(s): 424710368 Plan: Patient with acute respiratory failure which is multifactorial in this patient with initial diagnosis of COVID-19 pneumonia in this patient did have significant worsening of his respiratory status requiring intubation and concern for possible aspiration pneumonitis, patient's sputum is showing gram-negative bacilli for which the patient is currently covered with Zosyn to continue monitoring his clinical course closely Time with Patient: Less than 30
--- NOTE | 2021-05-26 23:21 | P.PN ---
Subjective Progress Note Date: 05/26/21 This is a 70-year-old male who was recently admitted with change in mental status and fall and also shortness of breath and acute COVID-19 pneumonia and being closely monitored. Patient was continued on high flow oxygen although respiratory status continued to deteriorate and an A team was called. Patient was brought to the ICU for close monitoring and x-ray showed some bilateral lower lobe pneumonia which appears unchanged compared to recent exam with no obvious heart failure. Patient was placed on mechanical vent and intubated and sedated and is being closely monitored. Multiple medical consultations including pulmonary and infectious disease following closely. 05/20/2021 Patient is seen in follow-up activity is to be closely monitored in the ICU. Blood pressure and heart rate has been extremely variable and patient is maintained on D10 in water along with norepinephrine and will continue. Pulmonary and infectious disease following closely. Patient continues with worsening kidney functions nephrology consulted and patient is being given a liter bolus for hypotension and repeat sodium level ordered. Patient also continues on Zosyn and ID following closely. Patient continues with low blood sugar readings as well and we'll continue D10 and close glucose monitoring. Chest x-ray shows some improvement in bibasilar infiltrates more so on the right and possibly developing small right pleural effusion. 05/21/2021 Patient is seen and evaluated this morning continues to be in the ICU with multiple medical consultations following. Patient is continued on IV antibiotics with ID following. Cultures continue to be negative and WBC is 8.5. Patient did have low grade temp today. Patient continues on mechanical vent and sedated. Chest xray similar to previous exam and will continue to monitor. Prognosis remains guarded. Patient also continued on norepinephrine. 05/22/2021 Patient is seen and evaluated today continues to be on mechanical vent with an FiO2 of 40% PEEP is 5. Patient continuing with weaning trials and assist mode on mechanical vent although patient continues to not follow commands per nursing staff. Per pulmonary screw cutter continued attempts at weaning. Chest x-ray shows chronic emphysematous changes and pulmonary fibrosis with moderate bilater al pleural effusions and bilateral multifocal increased opacification consistent with COVID-19 infection are all redemonstrated with no significant change from yesterday. Sputum culture finalized showing Romelia species not albicans, glabrata along with Romelia albicans and infectious disease is following. Patient continues on IV antibiotics in the form of Zosyn. Patient is currently off norepinephrine and receiving Solu-Cortef along with valproic acid and Depakote. Patient is continued on Lovenox for DVT prophylaxis. Patient also continues on D5 in water at 100 mL per hour. Blood gases are improving and pulmonary discussing possible extubation. 05/23/2021 Patient is seen this morning continues to be on mechanical vent with an FiO2 of 40 and a PEEP of 5 with continued weaning trials. Patient is off sedation and does open eyes to verbal stimuli although does not follow commands. Chest x-ray today shows chronic emphysematous and pulmonary fibrotic changes with small size bilateral pleural effusions and bilateral multifocal increased opacification is consistent with COVID-19 infection are again redemonstrated with no significant change from previous. General surgery consulted for possible trach and peg tube placement. 05/24/2021 Patient with spontaneous eye opening during assessment, eyes are tracking, however when asked to squeeze fingers patient unable to do so and did not wiggle toes when asked. He was not responsive to commands or yes or no questions. Continues in the ICU on 5L NC with an oxygen saturation of 91%. He is afebrile, Heart rate is in the 40-50's dropping into the mid 30's. Unclear whether patient is in a heart block, nurse reports HR of 30's seems to be when he is sleeping. EKG will try to be obtained when he is in the 30's. Respirations are 23, blood pressure 135/55. Chest xray today remains unchanged. Possible trach and PEG tube wednesday if needed. Labs today show WBC 7.0, hgb 9.1, D-dimer 0.86, sodium 142, potassium 3.6, BUN 33, creatinine 1.28, glucose in the 130s, calcium 7.8, CRP 1.7, total protein 4.6, albumin 2.0. Multiple consultations. Prognosis remains guarded. 05/25/2021 Throughout the evening patient desaturated and his blood pressure was dropping while on the levophed and his heart rate was increasing and then once he was off the levophed his heart rate was increasing and his blood pressure was dropping. Patient was reintubated with an Fi02 of 60%. Blood gases at the time showed a pCO2 of greater than 120, pH 6.97, pO2 170, total oxygen saturation 98. Oxygen saturations 98%, he is afebrile, pulse rate 43 appears sinus bradycardia on EKG that was obtained midmorning. Blood pressure 135/75. Blood gases have improved with a pH now 7.30, pCO2 57, pO2 57, HCO3 28, total CO2 30 and O2 saturation 87.5. Sodium 140, potassium 3.7, chloride 109, CO2 28, BUN 27, creatinine 1.36, blood glucose 120, calcium 8.1, AST 27, ALT 19, LDH 585, CRP 1.9. Chest x-ray today shows as based consolidation atelectasis and volume loss in the right hemithorax which is slightly compared to exam yesterday. Has pulmonary interstitial edema on the left side without change. Plan is for a PEG, trach tomorrow. Cardiology was consulted and started patient on a dopamine infusion. Patient is on D5 water at 75 mL per hour, levophed infusing, propofol, on IV Zosyn and IV valproic acid. Labs initial white count 13, hemoglobin 10.7, d- dimer 1.84. 05/26/2021 Patient is seen today in follow up in the ICU being closely monitored. Multiple medical consultations following along with general surgery and is scheduled for peg and trach placement today. Tube feedings on hold. Patient continues on mechanical vent and FI02 is 50% peep is 5. Chest xray today shows COPD right greater than left with covid infiltrates and aeration improving now on the right. Potassium is 3.2 and being replaced. Lovenox on hold for the procedure as well. Review of systems: Unable to obtain as patient is mechanically intubated and sedated Labs: WBC is 9.6, hemoglobin is 11.9, platelets are 293, d-dimer 0.68, sodium 142, potassium 3.2, BUN 23, creatinine 1.18, calcium 8.5, LDH 580, CRP 2.0, free T4 0.85, free T3 1.05 and low, most recent TSH was normal Active Medications Acetaminophen (Acetaminophen Tab 325 Mg Tab) 650 mg PO Q6HR PRN PRN Reason: Mild Pain or Fever > 100.5 Last Admin: 05/18/21 23:16 Dose: 650 mg Documented by: Albuterol Sulfate (Albuterol Hfa Inhaler) 2 puff INHALATION RT-QID [facility] Last Admin: 05/26/21 11:07 Dose: 2 puff Documented by: Artificial Tears (Artificial Tears-Hypromellose Drops 15 Ml Btl) 1 drops BOTH EYES Q4HR PRN PRN Reason: Dry Eye(s) Atorvastatin Calcium (Atorvastatin 20 Mg Tab) 20 mg PO HS [facility] Last Admin: 05/25/21 21:06 Dose: 20 mg Documented by: Divalproex Sodium (Divalproex Er 500 Mg Tab.Er.24h) 500 mg PO BID [facility] Last Admin: 05/19/21 09:52 Dose: Not Given Documented by: Enoxaparin Sodium (Enoxaparin 40 Mg/0.4 Ml Syringe) 40 mg SQ DAILY [facility] Last Admin: 05/26/21 10:05 Dose: Not Given Documented by: Ferrous Sulfate (Ferrous Sulfate 325 Mg Tab) 325 mg PO DAILY [facility] Last Admin: 05/26/21 10:47 Dose: Not Given Documented by: Folic Acid (Folic Acid 1 Mg Tab) 1 mg PO DAILY [facility] Last Admin: 05/26/21 10:47 Dose: Not Given Documented by: Hydrocortisone Sodium Succinate (Hydrocortisone Succinate 100 Mg/2 Ml Vial) 50 mg IV Q12HR [facility] Last Admin: 05/26/21 08:06 Dose: 50 mg Documented by: Valproic Acid 250 mg/ Sodium (Chloride) 102.5 mls @ 100 mls/hr IVPB Q6HR@0300,0900,1500,2100 [facility] Last Admin: 05/26/21 08:07 Dose: 100 mls/hr Documented by: Dextrose/Water (Dextrose 5%-Water Iv Soln) 1,000 mls @ 75 mls/hr IV .[id number] [facility] Last Admin: 05/25/21 21:08 Dose: 75 mls/hr Documented by: Norepinephrine Bitartrate 4 mg (/ Sodium Chloride) 254 mls @ 13.697 mls/hr IV .[id number] [facility]; Protocol Last Admin: 05/25/21 23:58 Dose: Not Given Documented by: Propofol 1,000 mg/ IV Solution 100 mls @ 0 mls/hr IV .Q0M [facility]; Protocol Last Admin: 05/26/21 06:43 Dose: 35 mcg/kg/min, 15.12 mls/hr Documented by: Dopamine HCl/Dextrose 800 mg/ (IV Solution) 250 mls @ 6.375 mls/hr IV .Q24H [facility]; Protocol Last Admin: 05/25/21 13:13 Dose: 5 mcg/kg/min, 6.375 mls/hr Documented by: Piperacillin Sod/Tazobactam (Sod 3.375 gm/ Sodium Chloride) 100 mls @ 25 mls/hr IVPB Q8HR [facility] Last Admin: 05/26/21 08:07 Dose: 25 mls/hr Documented by: Miscellaneous Information (Potassium Replacement Protocol 1 Each Misc) 1 each MISCELLANE DAILY PRN; Protocol PRN Reason: Per Protocol Nystatin (Nystatin 100,000 Unit/Ml Susp 500,000 Unit/5 Ml Cup) 500,000 unit PO QID [facility] Last Admin: 05/26/21 08:07 Dose: 500,000 unit Documented by: Pantoprazole Sodium (Pantoprazole 40 Mg/10 Ml Vial) 40 mg IVP DAILY [facility] Last Admin: 05/26/21 08:06 Dose: 40 mg Documented by: Physical Exam: Gen: this is a 70-year-old male currently sedated and intubated. 50% mechanical ventilation with a PEEP of 5 HEENT: Head is atraumatic, normocephalic. Pupils equal, round. Sclerae is anicteric. NECK: Supple. No JVD. No lymphadenopathy. No thyromegaly. LUNGS: Diminished breath sounds bilaterally with coarse rhonchi and crackles noted. No intercostal retractions. HEART: S1, S2 are muffled ABDOMEN: Soft. Bowel sounds are present. No masses. No tenderness. EXTREMITIES: No pedal edema. No calf tenderness. NEUROLOGICAL: Patient is currently intubated and sedated Assessment: Acute COVID-19 infection with acute COVID-19 bilateral interstitial pneumonia, right more than left with acute hypoxic respiratory failure, now requiring mechanical ventilation with extubation on 05/24/2021, and re-intubation on 05/25/2021 status post peg tube and tracheostomy placement Acute kidney injury secondary to acute tubular necrosis from septic shock, creatinine stable at 1.18 Chronic kidney disease stage III secondary to nephrosclerosis Hypoglycemia, improved Change in mental status, metabolic encephalopathy, multifactorial Falling, gait dysfunction Anemia, normocytic anemia of undetermined significance Hypernatremia from poor oral intake Hyperkalemia secondary to acute kidney injury, resolved Elevated d-dimer history of coronary artery disease history of chronic obstructive pulmonary disease Gastroesophageal reflux disease history of bipolar, schizoaffective disorder and schizophrenia History of nicotine dependence Severe protein calorie malnutrition with a BMI of 19.1 Full code Plan: Recommend to continue with current medications and follow along closely with multiple medical consultations. Prognosis remains guarded with multiple complex medical issues noted. Patient was extubated on 05/24/2021 however had a decline in status and was re-intubated. He is showing signs of neurological improvement as he has spontaneous eye opening with tracking yesterday. Sedated now with propofol. Nutritional support on hold and also lovenox as patient underwent PEG and Trach today. Recommend continue with current medications and patient has been maintained on IV antibiotics with infectious disease following.. Sputum culture showing Romelia albicans along with Romelia species. Most likely colonized. Repeat sputum is preliminary showing gram negative bacilli and will continue on Zosyn while awaiting cultures. Chest x-ray reviewed as mentioned dana frost. Recommend repeat labs in the morning. Nephrology following as well. Again due to multiple complex medical issues prognosis is quite guarded. Objective - Vital Signs Vital signs: Vital Signs Temp 97.7 F 05/26/21 00:00 Pulse 68 05/26/21 07:00 Resp 24 05/26/21 07:00 BP 104/70 05/26/21 07:00 Pulse Ox 98 05/26/21 07:00 Intake & Output 05/25/21 05/26/21 05/26/21 18:59 06:59 18:59 Intake Total 402.872 4858.073 75 Output Total 2460 1195 60 Balance -1532.564 29.073 15 Weight 72 kg Intake: IV 750 1125 75 Dextrose 5% in Water 1, 750 825 75 000 ml @ 75 mls/hr IV . [id number] [facility] Rx#:[id number] Piperacillin-Tazobactam 3 100 .375 gm In Sodium Chloride 0.9% 100 ml @ 25 mls/hr IVPB Q8HR [facility] Rx# :[id number] Valproate Sodium 250 mg 200 In Sodium Chloride 0.9% 100 ml @ 100 mls/hr IVPB Q6HR@0300,0900,1500,2100 [facility] Rx#:[id number] Intake, IV Titration 117.436 99.073 Amount Norepinephrine 4 mg In 23.148 11.645 Sodium Chloride 0.9% 250 ml @ 0.05 MCG/KG/MIN 13. 697 mls/hr IV .[id number] [facility] Rx#:[id number] propofoL 1,000 mg In 94.288 87.428 Empty Bag 1 bag @ Titrate IV .Q0M [facility] Rx#: [id number] Other 60 Output: Urine 2460 1195 60 Other: Voiding Method Indwelling Catheter Indwelling Catheter # Voids 2 ABP, PAP, CO, CI - Last Documented Arterial Blood Pressure 115/61 - Labs CBC & Chem 7: 05/26/21 04:00 05/26/21 15:17 Labs: Abnormal Lab Results - Last 24 Hours (Table) 05/26/21 05/26/21 05/26/21 Range/Units 04:00 04:00 04:00 RBC 3.74 L (4.30-5.90) m/uL Hgb 11.9 L (13.0-17.5) gm/dL Hct 34.8 L (39.0-53.0) % Neutrophils # 8.6 H (1.3-7.7) k/uL Lymphocytes # 0.4 L (1.0-4.8) k/uL D-Dimer 0.68 H (<0.60) mg/L FEU ABG pH (7.35-7.45) ABG HCO3 (21-25) mmol/L ABG Total CO2 (19-24) mmol/L ABG O2 Saturation (94-97) % Potassium 3.2 L (3.5-5.1) mmol/L Chloride 110 H (98-107) mmol/L BUN 23 H (9-20) mg/dL Glucose 111 H (74-99) mg/dL POC Glucose (mg/dL) (75-99) mg/dL C-Reactive Protein 2.0 H (<1.0) mg/dL Total Protein 5.7 L (6.3-8.2) g/dL Albumin 2.5 L (3.5-5.0) g/dL 05/26/21 05/26/21 Range/Units 05:45 05:47 RBC (4.30-5.90) m/uL Hgb (13.0-17.5) gm/dL Hct (39.0-53.0) % Neutrophils # (1.3-7.7) k/uL Lymphocytes # (1.0-4.8) k/uL D-Dimer (<0.60) mg/L FEU ABG pH 7.47 H (7.35-7.45) ABG HCO3 29 H (21-25) mmol/L ABG Total CO2 30 H (19-24) mmol/L ABG O2 Saturation 98.0 H (94-97) % Potassium (3.5-5.1) mmol/L Chloride (98-107) mmol/L BUN (9-20) mg/dL Glucose (74-99) mg/dL POC Glucose (mg/dL) 100 H (75-99) mg/dL C-Reactive Protein (<1.0) mg/dL Total Protein (6.3-8.2) g/dL Albumin (3.5-5.0) g/dL Microbiology - Last 24 Hours (Table) 05/25/21 04:54 Gram Stain - Preliminary Sputum Sputum Culture - Preliminary 05/19/21 18:56 Blood Culture - Final Blood No Growth after 144 hours 05/19/21 18:56 Blood Culture - Final Blood No Growth after 144 hours
[2021-05-26] MEDS: DOPamine DRIP 800 MG in WATER FOR INJECTION 1 250ML.BAG IV SCH (23:51)
[2021-05-27] MEDS: NOREPINEPHRINE 4 MG in SODIUM CHLORIDE 0.9% 250 ML IV SCH (00:17)
[2021-05-27 00:18] LABS: Glucose,Whole Blood 94 mg/dL (75-99)
[2021-05-27] MEDS: VALPROATE SODIUM 250 MG in SODIUM CHLORIDE 0.9% 100 ML IVPB SCH ×4 (03:51→22:14)
[2021-05-27 04:22] LABS: HCT 32.6 % (39.0-53.0); HGB 10.8 gm/dL (13.0-17.5); MCH 31.5 pg (25.0-35.0); MCHC 33.3 g/dL (31.0-37.0); MCV 94.6 fL (80.0-100.0); Mean Platelet Volume 7.8; Platelet Count 366 k/uL (150-450); Poikilocytosis Slight; RBC 3.44 m/uL (4.30-5.90); RDW 14.7 % (11.5-15.5); WBC 24.8 k/uL (3.8-10.6)
[2021-05-27 04:34] LABS: Calcium 7.8 mg/dL (8.4-10.2); Potassium 3.2 mmol/L (3.5-5.1)
[2021-05-27] MEDS: POTASSIUM CHLORIDE 20 MEQ in WATER FOR INJECTION 1 100ML.BAG IVPB SCH ×2 (05:09→06:55)
[2021-05-27 06:05] LABS: ABG Base Excess 1.7 mmol/L; ABG HCO3 27 mmol/L (21-25); ABG Oxygen Saturation 97.4 % (94-97); ABG PCO2 45 mmHg (35-45); ABG PH 7.38 (7.35-7.45); ABG PO2 89 mmHg (83-108); ABG TCO2 28 mmol/L (19-24)
[2021-05-27 06:09] LABS: Allen Test Performed? No
--- NOTE | 2021-05-27 07:39 | P.PN ---
Subjective Progress Note Date: 05/27/21 Principal diagnosis: Sinus bradycardia This is a 70-year-old female patient with coronary artery disease as well as multiple comorbid conditions was admitted to the intensive care unit with change in mental status and we consulted to see the patient mainly because of sinus bradycardia. Subsequently the patient was started on dopamine with improvement in the heart rate. Also the patient required intubation and mechanical ventilation because she developed acute hypoxic respiratory failure secondary to COVID-19 pneumonia. The patient was evaluated today. He continues to be on a small dose of dopamine which we are trying to wean him from. If he is maintaining a heart rate in the 40s and systolic pressure above 90 mmHg he doesn't need any dopamine. The echo was done and showed normal left ventricle systolic function without significant valvular abnormalities. Currently he is not on any AV sherri mikaela agents. We order TSH and free T4 on him yesterday but for some reason the TSH was not performed and the free T4 came in to be within normal limits but free T3 came in to be low. That would be addressed by the primary care team Objective - Vital Signs Vital signs: Vital Signs Temp 97.9 F 05/27/21 04:00 Pulse 52 L 05/27/21 07:00 Resp 21 05/27/21 07:00 BP 107/62 05/27/21 07:00 Pulse Ox 100 05/27/21 07:00 Intake & Output 05/26/21 05/27/21 05/27/21 18:59 06:59 18:59 Intake Total 2122.592 1428.310 108 Output Total 1077 715 125 Balance 1045.592 713.310 -17 Weight 72 kg 72.8 [place]: [place] [address] Dextrose 5% in Water 1, 975 825 75 000 ml @ 75 mls/hr IV . [id number] [facility] Rx#:[id number] Sodium Chloride 0.9% 2, 1000 000 ml @ 999 mls/hr IV . Q2H1M [facility] Rx#:[id number] kvo 240 30 pressure bag 18 3 Intake, IV Titration 147.592 345.310 Amount DOPamine DRIP 800 mg In 220.787 Water For Injection 1 250ml.bag @ 5 MCG/KG/MIN 6.375 mls/hr IV .Q24H [facility] Rx#:[id number] Norepinephrine 4 mg In 35.567 Sodium Chloride 0.9% 250 ml @ 0.05 MCG/KG/MIN 13. 697 mls/hr IV .[id number] [facility] Rx#:[id number] propofoL 1,000 mg In 147.592 88.956 Empty Bag 1 bag @ Titrate IV .Q0M [facility] Rx#: [id number] Output: Urine 1075 715 125 Estimated Blood Loss 2 Other: Voiding Method Indwelling Catheter Indwelling Catheter ABP, PAP, CO, CI - Last Documented Arterial Blood Pressure 123/54 - Constitutional General appearance: Present: no acute distress - Labs CBC & Chem 7: 05/27/21 03:56 05/27/21 03:56 Labs: Abnormal Lab Results - Last 24 Hours (Table) 05/26/21 05/26/21 05/27/21 Range/Units 04:00 15:17 03:56 WBC 24.8 H (3.8-10.6) k/uL RBC 3.44 L (4.30-5.90) m/uL Hgb 10.8 L (13.0-17.5) gm/dL Hct 32.6 L (39.0-53.0) % ABG HCO3 (21-25) mmol/L ABG Total CO2 (19-24) mmol/L ABG O2 Saturation (94-97) % Potassium 3.3 L (3.5-5.1) mmol/L Chloride (98-107) mmol/L Glucose (74-99) mg/dL Calcium (8.4-10.2) mg/dL Free T3 pg/mL 1.5 L (2.8-5.3) pg/ml 05/27/21 05/27/21 Range/Units 03:56 05:50 WBC (3.8-10.6) k/uL RBC (4.30-5.90) m/uL Hgb (13.0-17.5) gm/dL Hct (39.0-53.0) % ABG HCO3 27 H (21-25) mmol/L ABG Total CO2 28 H (19-24) mmol/L ABG O2 Saturation 97.4 H (94-97) % Potassium 3.2 L (3.5-5.1) mmol/L Chloride 112 H (98-107) mmol/L Glucose 109 H (74-99) mg/dL Calcium 7.8 L (8.4-10.2) mg/dL Free T3 pg/mL (2.8-5.3) pg/ml Microbiology - Last 24 Hours (Table) 05/25/21 04:54 Gram Stain - Preliminary Sputum Sputum Culture - Preliminary Gram Neg Bacilli Assessment and Plan Assessment: Assessment #1 acute hypoxic respiratory failure #2 COVID-19 pneumonia #3 change in mental status #4 sinus bradycardia of unknown etiology #5 coronary artery disease #6 multiple comorbid conditions Plan #1 try to wean the patient from dopamine. #2 address the thyroid abnormalities by the primary care team #3 the echo was done and showed normal left ventricle systolic function #4 avoid any AV sherri mikaela agents #5 follow-up with the patient
[2021-05-27] MEDS: ALBUTEROL HFA INHALER INHALATION SCH ×4 (07:43→19:51)
[2021-05-27] MEDS: PIPERACILLIN-TAZOBACTAM 3.375 GM in SODIUM CHLORIDE 0.9% 100 ML IVPB SCH ×2 (08:06→15:28)
[2021-05-27] MEDS: PANTOPRAZOLE 40 MG/10 ML VIAL IVP SCH (08:32)
[2021-05-27] MEDS: FERROUS SULFATE 325 MG TAB PO SCH (08:32)
[2021-05-27] MEDS: ENOXAPARIN 40 MG/0.4 ML SYRINGE SQ SCH (08:32)
[2021-05-27] MEDS: NYSTATIN 100,000 UNIT/ML SUSP 500,000 UNIT/5 ML CUP PO SCH ×4 (08:32→22:09)
[2021-05-27] MEDS: FOLIC ACID 1 MG TAB PO SCH (08:32)
[2021-05-27] MEDS: HYDROCORTISONE SUCCINATE 100 MG/2 ML VIAL IV SCH ×2 (08:33→22:08)
[2021-05-27] MEDS: DEXTROSE 5% IN WATER 1,000 ML IV SCH ×2 (09:00→22:07)
--- NOTE | 2021-05-27 09:45 | XR ---
EXAMINATION TYPE: XR chest 1V portable DATE OF EXAM: 05/27/2021 COMPARISON: 05/26/2021 HISTORY: SOB, Follow Up FINDINGS: Tracheostomy tube is now in place at appears well-positioned. NG tube has been removed. Right IJ cent ral venous line is unchanged in position. No evidence of pneumothorax. No change in bibasilar opacities. Stable appearance of the cardio-mediastinal structures at this time. IMPRESSION: 1. Stable portable chest. Clinical correlation and follow up until resolution is recommended.
--- NOTE | 2021-05-27 10:58 | P.PN ---
Subjective Progress Note Date: 05/27/21 Principal diagnosis: Acute COVID-19 pneumonia This is a 70-year-old male patient, brought into the emergency department by a caregiver. The patient is unable to volunteer any history. He has issues with dementia and mental health. In fact he is unable to communicate. He is currently in the hospital for COVID pneumonia. The patient initially went to [place] where he was seen in the [facility] for COVID 19 infection. He was discharged home. This is approximately 4 days ago. Following that, the caregiver sent the patient to our hospital as the patient's condition was getting worse and apparently continued to have worsening mentation. The patient was unable to communicate time of his admission. He was mumbling and unable to make full sentences or other words. He was restless in bed. At times agitated. At times screaming. He was quite uncooperative during the evaluation. No history of any head trauma. The patient apparently had a fall and he sustained a trauma to his neck area following the fall. This occurred at home in a bathtub. In the emergency department, the patient was found to be hypoxic with a pulse ox of 80% and the patient required oxygen. The patient is currently on oxygen at 10 L high flow. Initial CAT scan of the brain and the CAT scan of the C-spine showed no acute process. The patient was given 10 mg of Decadron in the emergency department regarding his COVID 19 pneumonia. Chest x-ray showed bilateral lower lobe airspace disease. Note that the pulmonary infiltrates were worse on the right compared to the leftand the infiltrate was rather asymmetric, which obviously raises concerns for an underlying pneumonia, aspiration and the patient was given a dose of Rocephin and Zithromax in the emergency department. His white cell count is at 6.4 with a hemoglobin of 12 and a platelet count of 130. Sodium was 155 this morning with a potassium level of 6.1, BUN is at 50 with a creatinine of 1.5, LFTs are normal, lactic acid level was at 1.9, pro calcitonin level is at 0.16, d-dimer is at 0.8 and the rest of the coagulation profile is within normal limits. The patient is currently on IV Decadron. On 05/19/2021 patient seen in follow-up in the intensive care unit, overnight his condition continued to deteriorate, and early this morning at 4:00 on 05/19/2021 patient had rapid response team called to the bedside for concern of worsening shortness of breath, and worsening hypoxia, patient was confused and in respiratory distress, he is not answering any questions, on 10 L of oxygen his pulse ox was 94%, however his mental status was significantly altered, patient was transferred to the intensive care unit for high likelihood of intubation, this morning she was intubated and placed on mechanical ventilator, with assist-control mode of ventilation with a rate of 30, tidal on was 300, FiO2 100% and PEEP of 5. Early in the morning his blood gases showed pO2 of 82, pCO2 of 80, and pH of 7.18, this was done and FiO2 of 70%. Post intubation blood gas showed a pO2 of 81, pCO2 of 63, and pH of 7.24, this was done and FiO2 of 50%. Patient was hypotensive following intubation, he was given 2 L of fluid boluses, and his maintenance IV fluid is D5W at 50 ML per hour which will be switched to normal saline, he is on norepinephrine at 0.14 mics per kilo per minute, Diprivan infusion at 50 mics per kilo per minute. He remains on prophylactic Lovenox 40 mg daily, and Decadron 6 mg daily. He remains on his home medications including Lipitor, Plavix, Depakote, iron supplementation, his antipsychotics, midodrine which patient have not been able to take related to his altered mental status. Patient was also suspected to be aspirating, and he was placed on Zosyn for empiric antibiotic coverage. Today's labs have been reviewed, his white blood cell count is 7.1, hemoglobin of 12.7, sodium is 153 and patient has been on D5W at a rate of 100 ML per hour, his oral intake has been extremely poor, potassium is 5.8, chloride is 124, BUN of 69, creatinine is 1.97. Patient's extremely cachectic, and frail. This morning patient had to be intubated and placed on mechanical ventilator, we will initiate tube feedings today, consult registered dietitian for tube feeding recommendation, patient will be fluid bolused, and stabilized hemodynamically. On 05/20/2021 patient seen in follow-up in intensive care unit. Yesterday he was intubated and placed on mechanical ventilator in view of worsening hypoxia and dyspnea. Today he remains sedated, and intubated on assist control mode of ventilation with a rate of 30, tidal volume is 325, FiO2 of 50% and PEEP of 10, this morning blood gases shows pO2 of 95, pCO2 of 70, and pH of 7.18. This was done on the above mentioned ventilator settings, today's chest x-ray shows some improvement of bibasilar infiltrates more so on the right, and possibility of developing small right pleural effusion. Patient is currently on a vasopressor support in the form of norepinephrine is 0.38 mics per kilo per minute which is about 24.7 mics per minute, he is on Diprivan at 50 mics per kilo per minute, and overnight he had episode of hypoglycemia and patient was placed on 10% dextrose at a rate of 100 ML per hour, patient was extremely dehydrated prior to his intubation, his had very poor oral intake. He was given 2 L fluid bolus yesterday, however still requiring vasopressor support, and case was discussed with nephrology who agreed that patient is still extremely intravascular volume depleted, and is recommending another 1 or 2 L fluid bolus today. Today's labs have been reviewed and his white blood cell count is 14.6, hemoglobin is 12.1, platelet count is 223, sodium is 148, potassium is 4.7, chloride is 121, CO2 is 23, BUN of 49 creatinine is 1.93, his LDH is 560, within normal limits, and CRP is 7.2, improving, his last proBNP from a couple days ago was 5790 however patient seems to be extremely dehydrated. His pro calcitonin levels were negative 2 at 0.16, and 0.12 however his chest x-ray findings suggest possibility of aspiration pneumonia, and patient was placed on Zosyn for possibility of aspiration. Sputum culture has been sent and pending, preliminary Gram stain showing few PMNs, rare budding yeast, final culture is pending, blood cultures are negative thus far. On 05/21/2021 patient seen in follow-up in intensive care unit, patient remains sedated, and intubated on assist control mode of ventilation with a rate of 36, tidal volume was 375, FiO2 of 40% and 5. The blood count shows pO2 of 71, pCO2 of 41, pH is 7.40, today's chest x-ray has been reviewed showing bilateral airspace disease with interstitial changes and prominent lung volumes indicative of underlying COPD. Vital signs have been stable overnight, patient is on norepinephrine 0.1 mics per kilo per minute, Diprivan is present, and D5W at 100 ML per hour, and plan an 70-20 ML per hour, he is on tube feedings with Nepro at 20 ML per hour and 10 of water flushes, he is in sinus mechanism with a rate of 82 BPM, patient has had fevers overnight with a temp of 100.5F. He is covered with Zosyn. His blood cultures have been negative, his sputum culture showed yeast species, culture is pending. Today's labs have been reviewed and his white blood cell count is 8.5, hemoglobin is 10.4, his sodium is improved and is down to 149, in follow-up sodium level came back at 151, patient remains on free water at 100 ML per hour, nephrology is following. Potassium is 4.0, chloride is 121, BUN is 40, creatinine is improved and is down to 1.58, his cortisol level 7, and this was on IV Decadron 6 mg daily, and patient remains on prophylactic dose Lovenox, Zosyn, yesterday he received an additional liter bolus in IV fluids. His urine output is in the order of 100-125 ML per hour. Overall his oxygenation and ventilation have significantly improved, and patient is maintaining stable O2 saturations on FiO2 of 40% and PEEP of 5, his peak Pressure is only 18, his plateau is 13. On 05/22/2021 patient seen in follow-up in intensive care unit, he remains intubated on mechanical ventilator, currently assist control mode of ventilation with a rate at 36, tidal 375, FiO2 40% and PEEP of 5, this was blood gas shows pO2 of 112, pCO2 40, pH of 7.40 and this was done and the above-mentioned vent settings, today's chest x-ray has been reviewed showing chronic emphysematous pulmonary fibrotic changes with moderate bilateral pleural effusions and susan ateral multifocal increased opacities consistent with COVID-19 infection. No significant change compared the day before. Patient's sedation has been placed on hold this morning. Patient is waking up, becoming slightly restless, however he is not following commands yet. He is on D5W at rate of 100 ML per hour, norepinephrine drip has been weaned off, patient continues on hydrocortisone 100 mg every 8 hours for his serum cortisol level of 7, his TSH level was 0.923, within normal limits. He's tolerating tube feedings he is receiving Nepro at 27 per hour with a goal of 27 standard water flushes, vital signs have been stable, no fever overnight. He did have a low-grade fever early this morning with a temp of 99.7F. His blood cultures have been negative, his sputum culture showed Romelia species. Patient remains on Zosyn for antibiotic coverage, on prophylactic Lovenox 40 mg daily. The rest of patient's labs have been reviewed, his white blood cell count is 6.0, hemoglobin of 9.6, sodium is improving and is down to 148, potassium is 4.0, chloride is 122, BUN is 26, creatinine is improving and is down to 1.55. On 05/23/2021 patient seen in follow-up in the intensive care unit. He remains intubated, on mechanical ventilator, currently on assist control mode of ventilation with a rate of 36, tidal volume 375, FiO2 of 40% and PEEP of 5. This morning's blood gas shows pO2 of 136, pCO2 of 40, and pH of 7.42, this was done and above-mentioned vent settings. Today's chest x-ray has been reviewed showing chronic emphysematous and pulmonary fibrotic changes with small bilate ral pleural effusions and bilateral multifocal opacities, without significant change compared to the prior study. Today's labs have been reviewed, white blood cell count is 5.5, hemoglobin is 8.9, sodium is 147, improving potassium is 3.5, chloride is 118, CO2 is 27, BUN 37, creatinine is 1.44. Patient is receiving D5W 1 50 ML per hour, nephrology is managing, he remains on hydrocortisone 100 mg every 8 hours, his been off vasopressor support for 48 hours. He has had no fever or chills. He remains on Zosyn. Sputum culture showed Romelia species, blood cultures have been negative. Neurologically patient has been off sedation for the past 24 hours. However patient is not following commands, although he is awake, at times he becomes restless, his been getting intermittent doses of when necessary on as-needed basis. We understand patient has underlying history of dementia however his baseline mental status is not known to us, his level of consciousness is certainly improved, however patient has not been able to follow any instructions. And for that reason patient has not been able to tolerate weaning trials, last night he had to be placed on assist-control mode of ventilation because he was extremely anxious, she did tolerate pressure support of 14 and IMV of 10 for a couple of hours, however became very agitated, and was placed back on assist control mode of ventilation. he is tolerating tube feedings. On 05/27/2021 patient seen in follow-up in the intensive care unit, patient remains intubated, and sedated on assist control mode of ventilation with a rate of 30, tidal 350, FiO2 of 50% and PEEP of 5, this morning's blood gas shows pO2 of 89, pCO2 45, pH is 7.3. Today's chest x-ray showing stable portable chest, bibasilar opacities, no significant change from prior exam, patient remains on Diprivan at 35 mics per kilo per minute, dopamine remains at 5 mics per kilo per minute, norepinephrine is at 1.5 mics per minute, D5W remains a 75 ML per hour, and tube feedings are currently on hold for recent trach and PEG placement by Dr. Mazariegos yesterday on 05/26/2021. He's had no acute events overnight. Today's labs have been reviewed, white blood cell count has increased and is currently 24.8, hemoglobin is 10.8, platelet count is 366, sodium is 140, potas sium is 3.2, chloride is 112, CO2 is 26, BUN is 18 creatinine is 1.14. Sputum culture from 2 days ago is showing gram-negative bacilli, final culture is still pending, patient currently remains on Zosyn, blood cultures are negative Objective - Vital Signs Vital signs: Vital Signs Temp 97.3 F L 05/27/21 08:00 Pulse 63 05/27/21 10:00 Resp 30 H 05/27/21 10:00 BP 102/60 05/27/21 10:00 Pulse Ox 100 05/27/21 10:00 Intake & Output 05/26/21 05/27/21 05/27/21 18:59 06:59 18:59 Intake Total 2122.592 1428.310 820.854 Output Total 1077 715 425 Balance 1045.592 713.310 395.854 Weight 72 kg 72.8 kg Intake: IV 1975 3 532 Dextrose 5% in Water 1 975 825 300 000 ml @ 75 mls/hr IV . [id number] [facility] Rx#:[id number] Sodium Chloride 0.9% 2, 1000 000 ml @ 999 mls/hr IV . Q2H1M [facility] Rx#:[id number] Valproate Sodium 250 mg 100 In Sodium Chloride 0.9% 100 ml @ 100 mls/hr IVPB Q6HR@0300,0900,1500,2100 [facility] Rx#:[id number] kvo 240 120 pressure bag 18 12 Intake, IV Titration 147.592 345.310 288.854 Amount DOPamine DRIP 800 mg In 220.787 63.219 Water For Injection 1 250ml.bag @ 5 MCG/KG/MIN 6.375 mls/hr IV .Q24H [facility] Rx#:[id number] Norepinephrine 4 mg In 35.567 38.947 Sodium Chloride 0.9% 250 ml @ 0.05 MCG/KG/MIN 13. 697 mls/hr IV .[id number] [facility] Rx#:[id number] Piperacillin-Tazobactam 3 100 .375 gm In Sodium Chloride 0.9% 100 ml @ 25 mls/hr IVPB Q8HR [facility] Rx# :[id number] propofoL 1,000 mg In 147.592 88.956 86.688 Empty Bag 1 bag @ Titrate IV .Q0M [facility] Rx#: [id number] Output: Urine 1075 715 425 Estimated Blood Loss 2 Other: Voiding Method Indwelling Catheter Indwelling Catheter Indwelling Catheter ABP, PAP, CO, CI - Last Documented Arterial Blood Pressure 119/51 - Exam GENERAL EXAM: Extremely frail and cachectic 70-year-old white male, trached to the ventilator on assist control mode of ventilation with a rate of 30, tidal on his 350, FiO2 50% and PEEP of 5, comfortable in no apparent distress. HEAD: Normocephalic/atraumatic. EYES: Normal reaction of pupils, equal size. Conjunctiva pink, sclera white. NOSE: Clear with pink turbinates. THROAT: No erythema or exudates. NECK: No masses, no JVD, no thyroid enlargement, no adenopathy. Midline tracheostomy in place, clean dry and intact, and patient is connected to the ventilator with assist control mode of ventilation CHEST: No chest wall deformity. Symmetrical expansion. LUNGS: Equal air entry with diminished breath sounds and crackles CVS: Regular rate and rhythm, normal S1 and S2, no gallops, no murmurs, no rubs ABDOMEN: Soft, nontender. No hepatosplenomegaly, normal bowel sounds, no guarding or rigidity. PEG tube is in place EXTREMITIES: No clubbing, mild generalized swelling noted in upper and lower extremities no cyanosis, 2+ pulses and upper and lower extremities. MUSCULOSKELETAL: Muscle strength and tone normal. SPINE: No scoliosis or deformity SKIN: No rashes CENTRAL NERVOUS SYSTEM: Sedated, intubated No focal deficits, tone is normal in all 4 extremities. - Labs CBC & Chem 7: 05/27/21 03:56 05/27/21 03:56 Labs: Abnormal Lab Results - Last 24 Hours (Table) 05/26/21 05/27/21 05/27/21 Range/Units 15:17 03:56 03:56 WBC 24.8 H (3.8-10.6) k/uL RBC 3.44 L (4.30-5.90) m/uL Hgb 10.8 L (13.0-17.5) gm/dL Hct 32.6 L (39.0-53.0) % ABG HCO3 (21-25) mmol/L ABG Total CO2 (19-24) mmol/L ABG O2 Saturation (94-97) % Potassium 3.3 L 3.2 L (3.5-5.1) mmol/L Chloride 112 H (98-107) mmol/L Glucose 109 H (74-99) mg/dL Calcium 7.8 L (8.4-10.2) mg/dL 05/27/21 Range/Units 05:50 WBC (3.8-10.6) k/uL RBC (4.30-5.90) m/uL Hgb (13.0-17.5) gm/dL Hct (39.0-53.0) % ABG HCO3 27 H (21-25) mmol/L ABG Total CO2 28 H (19-24) mmol/L ABG O2 Saturation 97.4 H (94-97) % Potassium (3.5-5.1) mmol/L Chloride (98-107) mmol/L Glucose (74-99) mg/dL Calcium (8.4-10.2) mg/dL Microbiology - Last 24 Hours (Table) 05/25/21 04:54 Gram Stain - Preliminary Sputum Sputum Culture - Preliminary Gram Neg Bacilli Assessment and Plan Plan: Assessment: #1. Acute hypoxic respiratory failure related to acute COVID-19 pneumonia, and possibility of bacterial infection/aspiration related pneumonia is not entirely excluded. Patient was brought into the emergency department on 05/17/2021 per EMS, patient is a poor historian, reportedly has history of bipolar disease and dementia. Came in primarily for evaluation of altered mental status. Transferred from [place] emergency department for COVID-19 related pneumonia. The patient was taken to the hospital in [place] 4 days prior to this admission and the symptom onset was probably even prior to that. Exact onset of symptoms is not known. Patient was transferred to the intensive care unit on 05/19/2021 for worsening hypoxia, and hypercapnia, and altered mental status, and was intubated on 05/19/2021 on assist control mode of ventilation with a rate of 30, tidal on his 300, FiO2 50% and PEEP of 10. Patient had tolerated pressure support trials, and was extubated on 05/24/2021 however failed and was reintubated on 05/25/2021 #2. Acute hypercapnic respiratory failure, related to acute aspiration, and possible COVID-19 pneumonia, requiring intubation and mechanical ventilator support #3. Hypotension, related to dehydration, and possibility of septic shock. Patient remains on norepinephrine for vasopressor support, serum cortisol level was only 7, stress dose hydrocortisone was started, and is currently at 50 mg every 12 hours #4. Altered mental status with worsened from baseline #5. History of dementia and schizoaffective disorder #6. Acute dehydration and hypernatremia, on the D5W at 100 ML per hour, improving #7. Chronic stage 3 kidney disease #8. COPD #9. History of coronary artery disease #10. GERD/reflux #11. Hyperlipidemia #12. Acute kidney injury related to ATN, and dehydration, patient continues on IV hydration and continues to receive fluid boluses #13. Hyperkalemia related to [place], resolved #14. Hypoglcemia, was placed on D10 at 100 ml, will start tube feeds today. Blood sugars improved Plan: Today's blood gases, labs, CXR and labs reviewed Continue current ventilator settings Wean vasopressors Wean dopamine No recurrent bradycardia Initiate tube feedings per the PEG tube if okay with surgery Continue same antibiotics Wean FiO2 to keep O2 sat saturation is at or above 90% Continue stress dose of hydrocortisone If remains stable we'll proceed with intraoperative sedation and possibly spontaneous brain trials in the next 24 hours Follow-up chest x-ray, labs and blood gases in the morning I performed a history & physical examination of the patient and discussed their management with my nurse practitioner, Veronica Chiu. I reviewed the nurse practitioner's note and agree with the documented findings and plan of care. Lung sounds are positive for diminished breath sounds throughout the lung fi elds. The findings and the impression was discussed with the patient. I attest to the documentation by the nurse practitioner. Time with Patient: Greater than 30
[2021-05-27 12:10] LABS: Glucose,Whole Blood 98 mg/dL (75-99)
[2021-05-27] MEDS: DOPamine DRIP 800 MG in WATER FOR INJECTION 1 250ML.BAG IV SCH (12:31)
--- NOTE | 2021-05-27 12:36 | P.PN ---
Subjective Principal diagnosis: Patient is seen for follow-up for acute kidney injury and hypernatremia. Renal function has improved with serum creatinine down to 1.14 mg/dL. Patient remains on the vent FiO2 is at 50%. Objective - Vital Signs Vital signs: Vital Signs Temp 96.8 F L 05/27/21 12:00 Pulse 60 05/27/21 12:00 Resp 30 H 05/27/21 12:00 BP 101/58 05/27/21 11:30 Pulse Ox 100 05/27/21 12:00 Intake & Output 05/26/21 05/27/21 05/27/21 18:59 06:59 18:59 Intake Total 2122.592 5922.106 4668.854 Output Total 1077 715 685 Balance 1045.592 713.310 331.854 Weight 72 kg 72.8 kg Intake: IV 1975 1083 728 Dextrose 5% in Water 1, 975 825 450 000 ml @ 75 mls/hr IV . [id number] [facility] Rx#:[id number] Sodium Chloride 0.9% 2, 1000 000 ml @ 999 mls/hr IV . Q2H1M [facility] Rx#:[id number] Valproate Sodium 250 mg 100 In Sodium Chloride 0.9% 100 ml @ 100 mls/hr IVPB Q6HR@0300,0900,1500,2100 [facility] Rx#:[id number] kvo 240 160 pressure bag 18 18 Intake, IV Titration 147.592 345.310 288.854 Amount DOPamine DRIP 800 mg In 220.787 63.219 Water For Injection 1 250ml.bag @ 5 MCG/KG/MIN 6.375 mls/hr IV .Q24H [facility] Rx#:[id number] Norepinephrine 4 mg In 35.567 38.947 Sodium Chloride 0.9% 250 ml @ 0.05 MCG/KG/MIN 13. 697 mls/hr IV .[id number] [facility] Rx#:[id number] Piperacillin-Tazobactam 3 100 .375 gm In Sodium Chloride 0.9% 100 ml @ 25 mls/hr IVPB Q8HR [facility] Rx# :[id number] propofoL 1,000 mg In 147.592 88.956 86.688 Empty Bag 1 bag @ Titrate IV .Q0M [facility] Rx#: [id number] Output: Urine 1075 715 685 Estimated Blood Loss 2 Other: Voiding Method Indwelling Catheter Indwelling Catheter Indwelling Catheter ABP, PAP, CO, CI - Last Documented Arterial Blood Pressure 119/53 - Exam Patient is on the vent. Examination lower extremities shows no significant edema. Abdomen is soft. Lungs and heart are not examined due to Covid isolation - Labs CBC & Chem 7: 05/27/21 03:56 05/27/21 11:00 Labs: Abnormal Lab Results - Last 24 Hours (Table) 05/26/21 05/27/21 05/27/21 Range/Units 15:17 03:56 03:56 WBC 24.8 H (3.8-10.6) k/uL RBC 3.44 L (4.30-5.90) m/uL Hgb 10.8 L (13.0-17.5) gm/dL Hct 32.6 L (39.0-53.0) % ABG HCO3 (21-25) mmol/L ABG Total CO2 (19-24) mmol/L ABG O2 Saturation (94-97) % Potassium 3.3 L 3.2 L (3.5-5.1) mmol/L Chloride 112 H (98-107) mmol/L Glucose 109 H (74-99) mg/dL Calcium 7.8 L (8.4-10.2) mg/dL 05/27/21 Range/Units 05:50 WBC (3.8-10.6) k/uL RBC (4.30-5.90) m/uL Hgb (13.0-17.5) gm/dL Hct (39.0-53.0) % ABG HCO3 27 H (21-25) mmol/L ABG Total CO2 28 H (19-24) mmol/L ABG O2 Saturation 97.4 H (94-97) % Potassium (3.5-5.1) mmol/L Chloride (98-107) mmol/L Glucose (74-99) mg/dL Calcium (8.4-10.2) mg/dL Microbiology - Last 24 Hours (Table) 05/25/21 04:54 Gram Stain - Final Sputum Sputum Culture - Final Escherichia coli Assessment and Plan Assessment: #1 acute kidney injury secondary to hemodynamic ATN. Peak creatinine was 2.07. #2 chronic kidney disease stage III A secondary to nephrosclerosis with a baseline creatinine of 1.2-1.4 MG per DL. #3 COVID-19 pneumonia #4 hypernatremia secondary to volume depletion, improving currently on D5W #5 hyperkalemia secondary to acute kidney injury, resolved Plan: 1. Continue D5W at 75 mL an hour 2. Replace potassium 3. Repeat labs in a.m.
[2021-05-27] MEDS: POTASSIUM BICARBONATE/CIT AC 20 MEQ TABLET.EFF NG-TUBE SCH ×2 (12:54→13:55)
--- NOTE | 2021-05-27 15:12 | P.PN ---
Subjective Progress Note Date: 05/27/21 CHIEF COMPLAINT: COVID-19 pneumonia HISTORY OF PRESENT ILLNESS: Patient is in the ICU intubated and sedated. Patient is status post PEG tube and tracheostomy placement. Patient has had some minimal bleeding around the tracheostomy site yesterday with coughing. He adjusted his sedation. No further bleeding. Afebrile. WBC 24.8 hemoglobin 10.8 PHYSICAL EXAM: VITAL SIGNS: Reviewed. GENERAL: no acute distress. HEENT: Moist buccal mucosa. Head is atraumatic, normocephalic. Trachea site clean dry and intact ABDOMEN: Soft. Nondistended. PEG tube site clean dry and intact NEUROLOGIC: Intubated and sedated ASSESSMENT: 1. Acute hypoxic respiratory failure secondary to COVID-19 pneumonia with mechanical ventilation and difficulty weaning from the vent status post tracheostomy placement 2. Severe protein calorie malnutrition status post PEG tube placement PLAN: -Consult dietitian to start tube feedings -Continue supportive care -Continue ICU management Physician Ladies Attendant note has been reviewed by physician. Signing provider agrees with the documented findings, assessment, and plan of care. Objective - Vital Signs Vital signs: Vital Signs Temp 96.8 F L 05/27/21 12:00 Pulse 69 05/27/21 14:30 Resp 30 H 05/27/21 14:30 BP 122/58 05/27/21 14:00 Pulse Ox 100 05/27/21 14:30 Intake & Output 05/26/21 05/27/21 05/27/21 18:59 06:59 18:59 Intake Total 2122.592 5985.850 2194.054 Output Total 1077 715 885 Balance 1045.592 713.310 498.054 Weight 72 kg 72.8 [place]: [place] [address] 924 Dextrose 5% in Water 1, 975 825 600 000 ml @ 75 mls/hr IV . [id number] [facility] Rx#:[id number] Sodium Chloride 0.9% 2, 1000 000 ml @ 999 mls/hr IV . Q2H1M [facility] Rx#:[id number] Valproate Sodium 250 mg 100 In Sodium Chloride 0.9% 100 ml @ 100 mls/hr IVPB Q6HR@0300,0900,1500,2100 [facility] Rx#:[id number] kvo 240 200 pressure bag 18 24 Intake, IV Titration 147.592 345.310 377.054 Amount DOPamine DRIP 800 mg In 220.787 63.219 Water For Injection 1 250ml.bag @ 5 MCG/KG/MIN 6.375 mls/hr IV .Q24H [facility] Rx#:[id number] Norepinephrine 4 mg In 35.567 38.947 Sodium Chloride 0.9% 250 ml @ 0.05 MCG/KG/MIN 13. 697 mls/hr IV .[id number] [facility] Rx#:[id number] Piperacillin-Tazobactam 3 100 .375 gm In Sodium Chloride 0.9% 100 ml @ 25 mls/hr IVPB Q8HR [facility] Rx# :[id number] propofoL 1,000 mg In 147.592 88.956 174.888 Empty Bag 1 bag @ Titrate IV .Q0M [facility] Rx#: [id number] Tube Feeding 22 Other 60 Output: Urine 1075 715 885 Estimated Blood Loss 2 Other: Voiding Method Indwelling Catheter Indwelling Catheter Indwelling Catheter ABP, PAP, CO, CI - Last Documented Arterial Blood Pressure 104/47 - Labs CBC & Chem 7: 05/27/21 03:56 05/27/21 11:00 Labs: Abnormal Lab Results - Last 24 Hours (Table) 05/26/21 05/27/21 05/27/21 Range/Units 15:17 03:56 03:56 WBC 24.8 H (3.8-10.6) k/uL RBC 3.44 L (4.30-5.90) m/uL Hgb 10.8 L (13.0-17.5) gm/dL Hct 32.6 L (39.0-53.0) % ABG HCO3 (21-25) mmol/L ABG Total CO2 (19-24) mmol/L ABG O2 Saturation (94-97) % Potassium 3.3 L 3.2 L (3.5-5.1) mmol/L Chloride 112 H (98-107) mmol/L Glucose 109 H (74-99) mg/dL Calcium 7.8 L (8.4-10.2) mg/dL 05/27/21 Range/Units 05:50 WBC (3.8-10.6) k/uL RBC (4.30-5.90) m/uL Hgb (13.0-17.5) gm/dL Hct (39.0-53.0) % ABG HCO3 27 H (21-25) mmol/L ABG Total CO2 28 H (19-24) mmol/L ABG O2 Saturation 97.4 H (94-97) % Potassium (3.5-5.1) mmol/L Chloride (98-107) mmol/L Glucose (74-99) mg/dL Calcium (8.4-10.2) mg/dL Microbiology - Last 24 Hours (Table) 05/25/21 04:54 Gram Stain - Final Sputum Sputum Culture - Final Escherichia coli
--- NOTE | 2021-05-27 15:13 | P.PN ---
Subjective Progress Note Date: 05/27/21 This is a 70-year-old male who was recently admitted with change in mental status and fall and also shortness of breath and acute COVID-19 pneumonia and being closely monitored. Patient was continued on high flow oxygen although respiratory status continued to deteriorate and an A team was called. Patient was brought to the ICU for close monitoring and x-ray showed some bilateral lower lobe pneumonia which appears unchanged compared to recent exam with no obvious heart failure. Patient was placed on mechanical vent and intubated and sedated and is being closely monitored. Multiple medical consultations including pulmonary and infectious disease following closely. 05/20/2021 Patient is seen in follow-up activity is to be closely monitored in the ICU. Blood pressure and heart rate has been extremely variable and patient is maintained on D10 in water along with norepinephrine and will continue. Pulmonary and infectious disease following closely. Patient continues with worsening kidney functions nephrology consulted and patient is being given a liter bolus for hypotension and repeat sodium level ordered. Patient also continues on Zosyn and ID following closely. Patient continues with low blood sugar readings as well and we'll continue D10 and close glucose monitoring. Chest x-ray shows some improvement in bibasilar infiltrates more so on the right and possibly developing small right pleural effusion. 05/21/2021 Patient is seen and evaluated this morning continues to be in the ICU with multiple medical consultations following. Patient is continued on IV antibiotics with ID following. Cultures continue to be negative and WBC is 8.5. Patient did have low grade temp today. Patient continues on mechanical vent and sedated. Chest xray similar to previous exam and will continue to monitor. Prognosis remains guarded. Patient also continued on norepinephrine. 05/22/2021 Patient is seen and evaluated today continues to be on mechanical vent with an FiO2 of 40% PEEP is 5. Patient continuing with weaning trials and assist mode on mechanical vent although patient continues to not follow commands per nursing staff. Per pulmonary orthotics assistant continued attempts at weaning. Chest x-ray shows chronic emphysematous changes and pulmonary fibrosis with moderate bilater al pleural effusions and bilateral multifocal increased opacification consistent with COVID-19 infection are all redemonstrated with no significant change from yesterday. Sputum culture finalized showing Romelia species not albicans, glabrata along with Romelia albicans and infectious disease is following. Patient continues on IV antibiotics in the form of Zosyn. Patient is currently off norepinephrine and receiving Solu-Cortef along with valproic acid and Depakote. Patient is continued on Lovenox for DVT prophylaxis. Patient also continues on D5 in water at 100 mL per hour. Blood gases are improving and pulmonary discussing possible extubation. 05/23/2021 Patient is seen this morning continues to be on mechanical vent with an FiO2 of 40 and a PEEP of 5 with continued weaning trials. Patient is off sedation and does open eyes to verbal stimuli although does not follow commands. Chest x-ray today shows chronic emphysematous and pulmonary fibrotic changes with small size bilateral pleural effusions and bilateral multifocal increased opacification is consistent with COVID-19 infection are again redemonstrated with no significant change from previous. General surgery consulted for possible trach and peg tube placement. 05/24/2021 Patient with spontaneous eye opening during assessment, eyes are tracking, however when asked to squeeze fingers patient unable to do so and did not wiggle toes when asked. He was not responsive to commands or yes or no questions. Continues in the ICU on 5L NC with an oxygen saturation of 91%. He is afebrile, Heart rate is in the 40-50's dropping into the mid 30's. Unclear whether patient is in a heart block, nurse reports HR of 30's seems to be when he is sleeping. EKG will try to be obtained when he is in the 30's. Respirations are 23, blood pressure 135/55. Chest xray today remains unchanged. Possible trach and PEG tube wednesday if needed. Labs today show WBC 7.0, hgb 9.1, D-dimer 0.86, sodium 142, potassium 3.6, BUN 33, creatinine 1.28, glucose in the 130s, calcium 7.8, CRP 1.7, total protein 4.6, albumin 2.0. Multiple consultations. Prognosis remains guarded. 05/25/2021 Throughout the evening patient desaturated and his blood pressure was dropping while on the levophed and his heart rate was increasing and then once he was off the levophed his heart rate was increasing and his blood pressure was dropping. Patient was reintubated with an Fi02 of 60%. Blood gases at the time showed a pCO2 of greater than 120, pH 6.97, pO2 170, total oxygen saturation 98. Oxygen saturations 98%, he is afebrile, pulse rate 43 appears sinus bradycardia on EKG that was obtained midmorning. Blood pressure 135/75. Blood gases have improved with a pH now 7.30, pCO2 57, pO2 57, HCO3 28, total CO2 30 and O2 saturation 87.5. Sodium 140, potassium 3.7, chloride 109, CO2 28, BUN 27, creatinine 1.36, blood glucose 120, calcium 8.1, AST 27, ALT 19, LDH 585, CRP 1.9. Chest x-ray today shows as based consolidation atelectasis and volume loss in the right hemithorax which is slightly compared to exam yesterday. Has pulmonary interstitial edema on the left side without change. Plan is for a PEG, trach tomorrow. Cardiology was consulted and started patient on a dopamine infusion. Patient is on D5 water at 75 mL per hour, levophed infusing, propofol, on IV Zosyn and IV valproic acid. Labs initial white count 13, hemoglobin 10.7, d- dimer 1.84. 05/26/2021 Patient is seen today in follow up in the ICU being closely monitored. Multiple medical consultations following along with general surgery and is scheduled for peg and trach placement today. Tube feedings on hold. Patient continues on mechanical vent and FI02 is 50% peep is 5. Chest xray today shows COPD right greater than left with covid infiltrates and aeration improving now on the right. Potassium is 3.2 and being replaced. Lovenox on hold for the procedure as well. 05/27/2021 Patient is seen in follow-up in the ICU with multiple medical consultations following. Patient is status post PEG and trach placement and will be initiating tube feeds once cleared by surgery. Sputum culture finalized showing E. coli with ESBL and resistance and infectious disease is following. Patient was continued on dopamine along with Levophed and attempting to wean per nursing staff. Patient also continues in D5 water with nephrology following closely. Patient is on IV Zosyn along with nystatin and will continue. Chest x-ray today shows stable portable chest with no evidence of pneumothorax and no change in bibasilar opacities. Patient continues on propofol and FiO2 is 50% with a PEEP of 5. Potassium found a 3.2 and replaced and will repeat labs. Review of systems: Unable to obtain as patient is mechanically intubated and sedated Labs: WBC is 24.8, hemoglobin is 10.8, platelets are 366, sodium is 140, potassium is 3.2, BUN is 18, creatinine is 1.14, calcium is 7.8 Active Medications Acetaminophen (Acetaminophen Tab 325 Mg Tab) 650 mg PO Q6HR PRN PRN Reason: Mild Pain or Fever > 100.5 Last Admin: 05/18/21 23:16 Dose: 650 mg Documented by: Albuterol Sulfate (Albuterol Hfa Inhaler) 2 puff INHALATION RT-QID [facility] Last Admin: 05/27/21 13:24 Dose: Not Given Documented by: Artificial Tears (Artificial Tears-Hypromellose Drops 15 Ml Btl) 1 drops BOTH EYES Q4HR PRN PRN Reason: Dry Eye(s) Atorvastatin Calcium (Atorvastatin 20 Mg Tab) 20 mg PO HS [facility] Last Admin: 05/26/21 20:11 Dose: Not Given Documented by: Divalproex Sodium (Divalproex Er 500 Mg Tab.Er.24h) 500 mg PO BID [facility] Last Admin: 05/19/21 09:52 Dose: Not Given Documented by: Enoxaparin Sodium (Enoxaparin 40 Mg/0.4 Ml Syringe) 40 mg SQ DAILY [facility] Last Admin: 05/27/21 08:32 Dose: 40 mg Documented by: Ferrous Sulfate (Ferrous Sulfate 325 Mg Tab) 325 mg PO DAILY [facility] Last Admin: 05/27/21 08:32 Dose: 325 mg Documented by: Folic Acid (Folic Acid 1 Mg Tab) 1 mg PO DAILY [facility] Last Admin: 05/27/21 08:32 Dose: 1 mg Documented by: Hydrocortisone Sodium Succinate (Hydrocortisone Succinate 100 Mg/2 Ml Vial) 50 mg IV Q12HR [facility] Last Admin: 05/27/21 08:33 Dose: 50 mg Documented by: Valproic Acid 250 mg/ Sodium (Chloride) 102.5 mls @ 100 mls/hr IVPB Q6HR@0300,0900,1500,2100 [facility] Last Admin: 05/27/21 14:43 Dose: 100 mls/hr Documented by: Dextrose/Water (Dextrose 5%-Water Iv Soln) 1,000 mls @ 75 mls/hr IV .[id number] [facility] Last Admin: 05/27/21 09:00 Dose: 75 mls/hr Documented by: Norepinephrine Bitartrate 4 mg (/ Sodium Chloride) 254 mls @ 13.697 mls/hr IV .[id number] [facility]; Protocol Last Titration: 05/27/21 10:46 Dose: 0.04 mcg/kg/min, 10.958 mls/hr Documented by: Propofol 1,000 mg/ IV Solution 100 mls @ 0 mls/hr IV .Q0M [facility]; Protocol Last Admin: 05/27/21 13:55 Dose: 35 mcg/kg/min, 15.12 mls/hr Documented by: Dopamine HCl/Dextrose 800 mg/ (IV Solution) 250 mls @ 6.375 mls/hr IV .Q24H [facility]; Protocol Last Admin: 05/27/21 12:31 Dose: Not Given Documented by: Piperacillin Sod/Tazobactam (Sod 3.375 gm/ Sodium Chloride) 100 mls @ 25 mls/hr IVPB Q8HR [facility] Last Admin: 05/27/21 08:06 Dose: 25 mls/hr Documented by: Miscellaneous Information (Potassium Replacement Protocol 1 Each Misc) 1 each MISCELLANE DAILY PRN; Protocol PRN Reason: Per Protocol Nystatin (Nystatin 100,000 Unit/Ml Susp 500,000 Unit/5 Ml Cup) 500,000 unit PO QID [facility] Last Admin: 05/27/21 12:41 Dose: 500,000 unit Documented by: Pantoprazole Sodium (Pantoprazole 40 Mg/10 Ml Vial) 40 mg IVP DAILY [facility] Last Admin: 05/27/21 08:32 Dose: 40 mg Documented by: Physical Exam: Gen: this is a 70-year-old male currently sedated and intubated. 50% mechanical ventilation with a PEEP of 5 HEENT: Head is atraumatic, normocephalic. Pupils equal, round. Sclerae is anicteric. NECK: Supple. No JVD. No lymphadenopathy. No thyromegaly. LUNGS: Diminished breath sounds bilaterally with coarse rhonchi and crackles noted. No intercostal retractions. HEART: S1, S2 are muffled ABDOMEN: Soft. Bowel sounds are present. No masses. No tenderness. EXTREMITIES: No pedal edema. No calf tenderness. NEUROLOGICAL: Patient is currently intubated and sedated Assessment: Acute COVID-19 infection with acute COVID-19 bilateral interstitial pneumonia, right more than left with acute hypoxic respiratory failure, now requiring mechanical ventilation with extubation on 05/24/2021, and re-intubation on 05/25/2021 status post peg tube and tracheostomy placement, awaiting surgical clearance to resume tube feedings Acute kidney injury secondary to acute tubular necrosis from septic shock, creatinine stable at 1.18 Chronic kidney disease stage III secondary to nephrosclerosis Hypoglycemia, improved Change in mental status, metabolic encephalopathy, multifactorial Falling, gait dysfunction Anemia, normocytic anemia of undetermined significance Hypernatremia from poor oral intake Hyperkalemia secondary to acute kidney injury, resolved Elevated d-dimer history of coronary artery disease history of chronic obstructive pulmonary disease Gastroesophageal reflux disease history of bipolar, schizoaffective disorder and schizophrenia History of nicotine dependence Severe protein calorie malnutrition with a BMI of 19.1 Full code Plan: Recommend to continue with current medications and follow along closely with multiple medical consultations. Prognosis remains guarded with multiple complex medical issues noted. Patient was extubated on 05/24/2021 however had a decline in status and was re-intubated. He is showing signs of neurological improvement as he has spontaneous eye opening with tracking yesterday. Sedated now with propofol. Nutritional support on hold and also lovenox as patient underwent PEG and Trach yesterday and awaiting surgical clearance to resume tube feedings. Recommend continue with current medications and patient has been maintained on IV antibiotics with infectious disease following.. Sputum culture showing Romelia albicans along with Romelia species and ESBL. Patient will continue on Zosyn . Chest x-ray reviewed as mentioned above. Recommend repeat labs in the morning. Nephrology following as well. Again due to multiple complex medical issues prognosis is quite guarded. Objective - Vital Signs Vital signs: Vital Signs Temp 97.3 F L 05/27/21 08:00 Pulse 63 05/27/21 09:30 Resp 30 H 05/27/21 09:30 BP 108/63 05/27/21 09:30 Pulse Ox 100 05/27/21 09:30 Intake & Output 05/26/21 05/27/21 05/27/21 18:59 06:59 18:59 Intake Total 2122.592 1428.310 605.092 Output Total 1077 715 425 Balance 1045.592 713.310 180.092 Weight 72 kg 72.[place]: [place] [address] 324 Dextrose 5% in Water 825 225 000 ml @ 75 mls/hr IV . [id number] [facility] Rx#:[id number] Sodium Chloride 0.9% 2, 1000 000 ml @ 999 mls/hr IV . Q2H1M [facility] Rx#:[id number] kvo 240 90 pressure bag 18 9 Intake, IV Titration 147.592 345.310 281.092 Amount DOPamine DRIP 800 mg In 220.787 63.219 Water For Injection 1 250ml.bag @ 5 MCG/KG/MIN 6.375 mls/hr IV .Q24H [facility] Rx#:[id number] Norepinephrine 4 mg In 35.567 31.185 Sodium Chloride 0.9% 250 ml @ 0.05 MCG/KG/MIN 13. 697 mls/hr IV .[id number] [facility] Rx#:[id number] Piperacillin-Tazobactam 3 100 .375 gm In Sodium Chloride 0.9% 100 ml @ 25 mls/hr IVPB Q8HR [facility] Rx# :[id number] propofoL 1,000 mg In 147.592 88.956 86.688 Empty Bag 1 bag @ Titrate IV .Q0M [facility] Rx#: [id number] Output: Urine 1075 715 425 Estimated Blood Loss 2 Other: Voiding Method Indwelling Catheter Indwelling Catheter Indwelling Catheter ABP, PAP, CO, CI - Last Documented Arterial Blood Pressure 110/49 - Labs CBC & Chem 7: 05/27/21 03:56 05/27/21 11:00 Labs: Abnormal Lab Results - Last 24 Hours (Table) 05/26/21 05/27/21 05/27/21 Range/Units 15:17 03:56 03:56 WBC 24.8 H (3.8-10.6) k/uL RBC 3.44 L (4.30-5.90) m/uL Hgb 10.8 L (13.0-17.5) gm/dL Hct 32.6 L (39.0-53.0) % ABG HCO3 (21-25) mmol/L ABG Total CO2 (19-24) mmol/L ABG O2 Saturation (94-97) % Potassium 3.3 L 3.2 L (3.5-5.1) mmol/L Chloride 112 H (98-107) mmol/L Glucose 109 H (74-99) mg/dL Calcium 7.8 L (8.4-10.2) mg/dL 05/27/21 Range/Units 05:50 WBC (3.8-10.6) k/uL RBC (4.30-5.90) m/uL Hgb (13.0-17.5) gm/dL Hct (39.0-53.0) % ABG HCO3 27 H (21-25) mmol/L ABG Total CO2 28 H (19-24) mmol/L ABG O2 Saturation 97.4 H (94-97) % Potassium (3.5-5.1) mmol/L Chloride (98-107) mmol/L Glucose (74-99) mg/dL Calcium (8.4-10.2) mg/dL Microbiology - Last 24 Hours (Table) 05/25/21 04:54 Gram Stain - Preliminary Sputum Sputum Culture - Preliminary Gram Neg Bacilli
[2021-05-27 17:40] LABS: Glucose,Whole Blood 110 mg/dL (75-99)
[2021-05-27] MEDS: POTASSIUM CHLORIDE 10 MEQ in WATER FOR INJECTION 1 100ML.BAG IVPB SCH ×3 (18:21→22:08)
--- NOTE | 2021-05-27 21:37 | P.PN ---
Subjective Progress Note Date: 05/27/21 Principal diagnosis: COVID-19 pneumonia Interval history: Patient is a 70-year-old male presented to the hospital with acute respiratory failure in this but have a evidence of multifocal pneumonia secondary to COVID-19. Patient did have worsening of his respiratory status requiring intubation on 05/19/2021, patient has been extubated on 05/24/2021 however the patient did have worsening of his respiratory status and inability intubated night of 05/24/2021 On today's evaluation that is 05/27/2021, The patient remains to be afebrile, the patient is hemodynamically stable however is requiring low-dose Levophed, no purulent secretions from the ET diarrhea has been reported by the nursing staff, patient is status post trach and PEG Objective - Vital Signs Vital signs: Vital Signs Temp 96.8 F L 05/27/21 12:00 Pulse 60 05/27/21 13:00 Resp 30 H 05/27/21 13:00 BP 113/57 05/27/21 12:30 Pulse Ox 100 05/27/21 13:00 Intake & Output 05/26/21 05/27/21 05/27/21 18:59 06:59 18:59 Intake Total 2122.592 9278.764 6747.054 Output Total 1077 715 785 Balance 1045.592 713.310 418.054 Weight 72 kg 72.8 kg Intake: IV 1975 3 826 Dextrose 5% in Water 1, 975 825 525 000 ml @ 75 mls/hr IV . [id number] [facility] Rx#:[id number] Sodium Chloride 0.9% 2, 1000 000 ml @ 999 mls/hr IV . Q2H1M [facility] Rx#:[id number] Valproate Sodium 250 mg 100 In Sodium Chloride 0.9% 100 ml @ 100 mls/hr IVPB Q6HR@0300,0900,1500,2100 [facility] Rx#:[id number] kvo 240 180 pressure bag 18 21 Intake, IV Titration 147.592 345.310 377.054 Amount DOPamine DRIP 800 mg In 220.787 63.219 Water For Injection 1 250ml.bag @ 5 MCG/KG/MIN 6.375 mls/hr IV .Q24H [facility] Rx#:[id number] Norepinephrine 4 mg In 35.567 38.947 Sodium Chloride 0.9% 250 ml @ 0.05 MCG/KG/MIN 13. 697 mls/hr IV .[id number] [facility] Rx#:[id number] Piperacillin-Tazobactam 3 100 .375 gm In Sodium Chloride 0.9% 100 ml @ 25 mls/hr IVPB Q8HR [facility] Rx# :[id number] propofoL 1,000 mg In 147.592 88.956 174.888 Empty Bag 1 bag @ Titrate IV .Q0M [facility] Rx#: [id number] Output: Urine 1075 715 785 Estimated Blood Loss 2 Other: Voiding Method Indwelling Catheter Indwelling Catheter Indwelling Catheter ABP, PAP, CO, CI - Last Documented Arterial Blood Pressure 116/53 - Exam General description is an elderly male intubated on the vent Respiratory system:Unlabored breathing, decreased intensity in breath sounds. No wheeze. Heart S1, S2. Regular rate and rhythm. Abdomen soft, no tenderness. Extremities: No edema feet - Labs CBC & Chem 7: 05/27/21 03:56 05/27/21 17:35 Labs: Abnormal Lab Results - Last 24 Hours (Table) 05/26/21 05/27/21 05/27/21 Range/Units 15:17 03:56 03:56 WBC 24.8 H (3.8-10.6) k/uL RBC 3.44 L (4.30-5.90) m/uL Hgb 10.8 L (13.0-17.5) gm/dL Hct 32.6 L (39.0-53.0) % ABG HCO3 (21-25) mmol/L ABG Total CO2 (19-24) mmol/L ABG O2 Saturation (94-97) % Potassium 3.3 L 3.2 L (3.5-5.1) mmol/L Chloride 112 H (98-107) mmol/L Glucose 109 H (74-99) mg/dL Calcium 7.8 L (8.4-10.2) mg/dL 05/27/21 Range/Units 05:50 WBC (3.8-10.6) k/uL RBC (4.30-5.90) m/uL Hgb (13.0-17.5) gm/dL Hct (39.0-53.0) % ABG HCO3 27 H (21-25) mmol/L ABG Total CO2 28 H (19-24) mmol/L ABG O2 Saturation 97.4 H (94-97) % Potassium (3.5-5.1) mmol/L Chloride (98-107) mmol/L Glucose (74-99) mg/dL Calcium (8.4-10.2) mg/dL Microbiology - Last 24 Hours (Table) 05/25/21 04:54 Gram Stain - Final Sputum Sputum Culture - Final Escherichia coli Assessment and Plan (1) Aspiration pneumonia Current Visit: Yes Status: Acute Code(s): J69.0 - PNEUMONITIS DUE TO INHALATION OF FOOD AND VOMIT SNOMED Code(s): 890565214 (2) COVID-19 Current Visit: Yes Status: Acute Code(s): U07.1 - COVID-19 SNOMED Code(s): 935388427 Plan: Patient with acute respiratory failure which is multifactorial in this patient with initial diagnosis of COVID-19 pneumonia in this patient did have significant worsening of his respiratory status requiring intubation and concern for possible aspiration pneumonitis, patient's sputum has been finalized with ESBL E. coli, patient is currently on Depakote contraindicating the use of meropenem/Invanz, we will start the patient on the Zerbexa and discontinue the Zosyn, prognosis remains to be guarded Time with Patient: Less than 30
[2021-05-27] MEDS: ATORVASTATIN 20 MG TAB PO SCH (22:08)
[2021-05-27 23:45] LABS: Glucose,Whole Blood 105 mg/dL (75-99)
[2021-05-28] MEDS ORDERED: CEFTOLOZANE/TAZOBACTAM 3 GM in SODIUM CHLORIDE 0.9% 100 ML IV SCH ×2
[2021-05-28] MEDS: CEFTAZIDIME/AVIBACTAM 2.5 GM in SODIUM CHLORIDE 0.9% 100 ML IVPB SCH ×2 (00:53→08:22)
[2021-05-28] MEDS: POTASSIUM CHLORIDE 10 MEQ in WATER FOR INJECTION 1 100ML.BAG IVPB SCH ×3 (00:54→08:24)
[2021-05-28] MEDS: NOREPINEPHRINE 4 MG in SODIUM CHLORIDE 0.9% 250 ML IV SCH ×2 (01:33→20:45)
[2021-05-28 01:40] LABS: Glucose,Whole Blood 116 mg/dL (75-99)
[2021-05-28] MEDS: VALPROATE SODIUM 250 MG in SODIUM CHLORIDE 0.9% 100 ML IVPB SCH ×2 (04:05→08:24)
[2021-05-28 04:30] LABS: Basophils % (A) 0 %; Eosinophils # (A) 0.1 k/uL (0-0.7); Eosinophils % (A) 0 %; HCT 29.7 % (39.0-53.0); HGB 9.7 gm/dL (13.0-17.5); Lymphocytes # (A) 0.3 k/uL (1.0-4.8); Lymphocytes % (A) 2 %; MCH 31.6 pg (25.0-35.0); MCHC 32.6 g/dL (31.0-37.0); Mean Platelet Volume 8.3; Monocytes # (A) 0.5 k/uL (0-1.0); Monocytes % (A) 3 %; Neutrophils # (A) 15.1 k/uL (1.3-7.7); Neutrophils % (A) 94 %; Platelet Count 345 k/uL (150-450); Poikilocytosis Slight; RBC 3.06 m/uL (4.30-5.90); RDW 15.1 % (11.5-15.5); WBC 16.1 k/uL (3.8-10.6)
[2021-05-28 05:05] LABS: Albumin 1.9 g/dL (3.5-5.0); Calcium 7.5 mg/dL (8.4-10.2); Potassium 3.8 mmol/L (3.5-5.1); Total Bilirubin 0.3 mg/dL (0.2-1.3); Total Protein 4.5 g/dL (6.3-8.2)
[2021-05-28 05:17] LABS: C Reactive Protein 15.8 mg/dL (<1.0)
[2021-05-28 05:34] LABS: Glucose,Whole Blood 119 mg/dL (75-99)
[2021-05-28 06:05] LABS: ABG Base Excess 1.8 mmol/L; ABG HCO3 27 mmol/L (21-25); ABG Oxygen Saturation 99.5 % (94-97); ABG PCO2 49 mmHg (35-45); ABG PH 7.36 (7.35-7.45); ABG PO2 130 mmHg (83-108); ABG TCO2 29 mmol/L (19-24); Allen Test Performed? Yes
--- NOTE | 2021-05-28 07:06 | XR ---
EXAMINATION TYPE: XR chest 1V portable DATE OF EXAM: 05/28/2021 CLINICAL HISTORY: Difficulty breathing and covid progress study. TECHNIQUE: Single AP portable upright view of the chest is obtained. COMPARISON: Chest x-ray from one day earlier and older studies. FINDINGS: Stable tracheostomy tube. Stable Right internal jugular central venous. Background chronic emphysematous change with persistent bilateral mid to lower lung increased opaciti es. Small to tiny right greater than left pleural effusions are felt present. Cardiac silhouette size is stable and within normal limits . Osseous structures remain demineralized. Underlying scoliosis c urvature is redemonstrated. IMPRESSION: Chronic emphysematous and pulmonary fibrotic changes with small size right greater than l eft bilateral pleural effusions and bilateral mid to lower lung infiltrates and/or atelectasis consis tent with covid-19 infection are redemonstrated. No significant change from one day earlier.
--- NOTE | 2021-05-28 07:36 | P.PN ---
Subjective Progress Note Date: 05/28/21 Principal diagnosis: Sinus bradycardia This is a 70-year-old female patient with coronary artery disease as well as multiple comorbid conditions was admitted to the intensive care unit with change in mental status and we consulted to see the patient mainly because of sinus bradycardia. Subsequently the patient was started on dopamine with improvement in the heart rate. Also the patient required intubation and mechanical ventilation because she developed acute hypoxic respiratory failure secondary to COVID-19 pneumonia. The patient was evaluated this morning. He is off dopamine and he has been maintaining low normal heart rate. His pressure has been also stable. The echo revealed normal left ventricular systolic function without significant valvular abnormalities. At this point I would continue the current medical regimen continue avoiding any AV sherri mikaela agents. Objective - Vital Signs Vital signs: Vital Signs Temp 96.1 F L 05/28/21 04:30 Pulse 65 05/28/21 07:00 Resp 30 H 05/28/21 07:00 BP 130/69 05/28/21 07:00 Pulse Ox 100 05/28/21 07:00 Intake & Output 05/27/21 05/28/21 05/28/21 18:59 06:59 18:59 Intake Total 2150.791 2208.35 120 Output Total 1285 1010 125 Balance 271.071 2201.35 -5 Weight 74.7 kg Intake: IV 1316 1676 98 0.9 NaCl- 280 240 20 Ceftazidime/Avibactam 2.5 100 gm In Sodium Chloride 0. 9% 100 ml @ 50 mls/hr IVPB Q8HR [facility] Rx#: [id number] Dextrose 5% in Water 1, 900 900 75 000 ml @ 75 mls/hr IV . [id number] [facility] Rx#:[id number] Potassium Chloride IVPB 200 Valproate Sodium 250 mg 100 200 In Sodium Chloride 0.9% 100 ml @ 100 mls/hr IVPB Q6HR@0300,0900,1500,2100 [facility] Rx#:[id number] pressure bag 36 36 3 Intake, IV Titration 634.791 178.35 Amount DOPamine DRIP 800 mg In 63.219 Water For Injection 1 250ml.bag @ 5 MCG/KG/MIN 6.375 mls/hr IV .Q24H [facility] Rx#:[id number] Norepinephrine 4 mg In 121.588 78.35 Sodium Chloride 0.9% 250 ml @ 0.05 MCG/KG/MIN 13. 697 mls/hr IV .[id number] [facility] Rx#:[id number] Piperacillin-Tazobactam 3 100 .375 gm In Sodium Chloride 0.9% 100 ml @ 25 mls/hr IVPB Q8HR [facility] Rx# :[id number] Potassium Chloride 10 meq 100 In Water For Injection 1 100ml.bag @ 100 mls/hr IVPB Q1HR [facility] Rx#: [id number] propofoL 1,000 mg In 249.984 100 Empty Bag 1 bag @ Titrate IV .Q0M [facility] Rx#: [id number] Tube Feeding 110 264 22 Other 90 90 Output: Urine 1285 1010 125 Other: Voiding Method Indwelling Catheter Indwelling Catheter ABP, PAP, CO, CI - Last Documented Arterial Blood Pressure 115/49 - Constitutional General appearance: Present: no acute distress - Labs CBC & Chem 7: 05/28/21 04:15 05/28/21 04:15 Labs: Abnormal Lab Results - Last 24 Hours (Table) 05/27/21 05/27/21 05/28/21 Range/Units 17:38 23:41 01:38 WBC (3.8-10.6) k/uL RBC (4.30-5.90) m/uL Hgb (13.0-17.5) gm/dL Hct (39.0-53.0) % Neutrophils # (1.3-7.7) k/uL Lymphocytes # (1.0-4.8) k/uL D-Dimer (<0.60) mg/L FEU ABG pCO2 (35-45) mmHg ABG pO2 (83-108) mmHg ABG HCO3 (21-25) mmol/L ABG Total CO2 (19-24) mmol/L ABG O2 Saturation (94-97) % Chloride (98-107) mmol/L Glucose (74-99) mg/dL POC Glucose (mg/dL) 110 H 105 H 116 H (75-99) mg/dL Calcium (8.4-10.2) mg/dL AST (17-59) U/L C-Reactive Protein (<1.0) mg/dL Total Protein (6.3-8.2) g/dL Albumin (3.5-5.0) g/dL 05/28/21 05/28/21 05/28/21 Range/Units 04:15 04:15 04:15 WBC 16.1 H (3.8-10.6) k/uL RBC 3.06 L (4.30-5.90) m/uL Hgb 9.7 L (13.0-17.5) gm/dL Hct 29.7 L (39.0-53.0) % Neutrophils # 15.1 H (1.3-7.7) k/uL Lymphocytes # 0.3 L (1.0-4.8) k/uL D-Dimer 1.11 H (<0.60) mg/L FEU ABG pCO2 (35-45) mmHg ABG pO2 (83-108) mmHg ABG HCO3 (21-25) mmol/L ABG Total CO2 (19-24) mmol/L ABG O2 Saturation (94-97) % Chloride 111 H (98-107) mmol/L Glucose 138 H (74-99) mg/dL POC Glucose (mg/dL) (75-99) mg/dL Calcium 7.5 L (8.4-10.2) mg/dL AST 13 L (17-59) U/L C-Reactive Protein 15.8 H (<1.0) mg/dL Total Protein 4.5 L (6.3-8.2) g/dL Albumin 1.9 L (3.5-5.0) g/dL 05/28/21 05/28/21 Range/Units 05:32 06:00 WBC (3.8-10.6) k/uL RBC (4.30-5.90) m/uL Hgb (13.0-17.5) gm/dL Hct (39.0-53.0) % Neutrophils # (1.3-7.7) k/uL Lymphocytes # (1.0-4.8) k/uL D-Dimer (<0.60) mg/L FEU ABG pCO2 49 H (35-45) mmHg ABG pO2 130 H (83-108) mmHg ABG HCO3 27 H (21-25) mmol/L ABG Total CO2 29 H (19-24) mmol/L ABG O2 Saturation 99.5 H (94-97) % Chloride (98-107) mmol/L Glucose (74-99) mg/dL POC Glucose (mg/dL) 119 H (75-99) mg/dL Calcium (8.4-10.2) mg/dL AST (17-59) U/L C-Reactive Protein (<1.0) mg/dL Total Protein (6.3-8.2) g/dL Albumin (3.5-5.0) g/dL Microbiology - Last 24 Hours (Table) 05/25/21 04:54 Gram Stain - Final Sputum Sputum Culture - Final Escherichia coli Assessment and Plan Assessment: Assessment #1 acute hypoxic respiratory failure #2 COVID-19 pneumonia #3 change in mental status #4 sinus bradycardia of unknown etiology #5 coronary artery disease #6 multiple comorbid conditions Plan #1 the patient off dopamine #2 address the thyroid abnormalities by the primary care team #3 the echo was done and showed normal left ventricle systolic function #4 avoid any AV sherri mikaela agents #5 follow-up with the patient
[2021-05-28] MEDS: ALBUTEROL HFA INHALER INHALATION SCH ×4 (08:15→20:06)
[2021-05-28] MEDS: HYDROCORTISONE SUCCINATE 100 MG/2 ML VIAL IV SCH ×2 (08:23→15:45)
[2021-05-28] MEDS: ENOXAPARIN 40 MG/0.4 ML SYRINGE SQ SCH (08:25)
[2021-05-28] MEDS: FERROUS SULFATE 325 MG TAB PO SCH (08:25)
[2021-05-28] MEDS: FOLIC ACID 1 MG TAB PO SCH (08:25)
[2021-05-28] MEDS: PANTOPRAZOLE 40 MG/10 ML VIAL IVP SCH (08:25)
--- NOTE | 2021-05-28 11:38 | P.PN ---
Subjective Progress Note Date: 05/28/21 Principal diagnosis: Acute COVID-19 pneumonia This is a 70-year-old male patient, brought into the emergency department by a caregiver. The patient is unable to volunteer any history. He has issues with dementia and mental health. In fact he is unable to communicate. He is currently in the hospital for COVID pneumonia. The patient initially went to [place] where he was seen in the [facility] for COVID 19 infection. He was discharged home. This is approximately 4 days ago. Following that, the caregiver sent the patient to our hospital as the patient's condition was getting worse and apparently continued to have worsening mentation. The patient was unable to communicate time of his admission. He was mumbling and unable to make full sentences or other words. He was restless in bed. At times agitated. At times screaming. He was quite uncooperative during the evaluation. No history of any head trauma. The patient apparently had a fall and he sustained a trauma to his neck area following the fall. This occurred at home in a bathtub. In the emergency department, the patient was found to be hypoxic with a pulse ox of 80% and the patient required oxygen. The patient is currently on oxygen at 10 L high flow. Initial CAT scan of the brain and the CAT scan of the C-spine showed no acute process. The patient was given 10 mg of Decadron in the emergency department regarding his COVID 19 pneumonia. Chest x-ray showed bilateral lower lobe airspace disease. Note that the pulmonary infiltrates were worse on the right compared to the leftand the infiltrate was rather asymmetric, which obviously raises concerns for an underlying pneumonia, aspiration and the patient was given a dose of Rocephin and Zithromax in the emergency department. His white cell count is at 6.4 with a hemoglobin of 12 and a platelet count of 130. Sodium was 155 this morning with a potassium level of 6.1, BUN is at 50 with a creatinine of 1.5, LFTs are normal, lactic acid level was at 1.9, pro calcitonin level is at 0.16, d-dimer is at 0.8 and the rest of the coagulation profile is within normal limits. The patient is currently on IV Decadron. On 05/19/2021 patient seen in follow-up in the intensive care unit, overnight his condition continued to deteriorate, and early this morning at 4:00 on 05/19/2021 patient had rapid response team called to the bedside for concern of worsening shortness of breath, and worsening hypoxia, patient was confused and in respiratory distress, he is not answering any questions, on 10 L of oxygen his pulse ox was 94%, however his mental status was significantly altered, patient was transferred to the intensive care unit for high likelihood of intubation, this morning she was intubated and placed on mechanical ventilator, with assist-control mode of ventilation with a rate of 30, tidal on was 300, FiO2 100% and PEEP of 5. Early in the morning his blood gases showed pO2 of 82, pCO2 of 80, and pH of 7.18, this was done and FiO2 of 70%. Post intubation blood gas showed a pO2 of 81, pCO2 of 63, and pH of 7.24, this was done and FiO2 of 50%. Patient was hypotensive following intubation, he was given 2 L of fluid boluses, and his maintenance IV fluid is D5W at 50 ML per hour which will be switched to normal saline, he is on norepinephrine at 0.14 mics per kilo per minute, Diprivan infusion at 50 mics per kilo per minute. He remains on prophylactic Lovenox 40 mg daily, and Decadron 6 mg daily. He remains on his home medications including Lipitor, Plavix, Depakote, iron supplementation, his antipsychotics, midodrine which patient have not been able to take related to his altered mental status. Patient was also suspected to be aspirating, and he was placed on Zosyn for empiric antibiotic coverage. Today's labs have been reviewed, his white blood cell count is 7.1, hemoglobin of 12.7, sodium is 153 and patient has been on D5W at a rate of 100 ML per hour, his oral intake has been extremely poor, potassium is 5.8, chloride is 124, BUN of 69, creatinine is 1.97. Patient's extremely cachectic, and frail. This morning patient had to be intubated and placed on mechanical ventilator, we will initiate tube feedings today, consult registered dietitian for tube feeding recommendation, patient will be fluid bolused, and stabilized hemodynamically. On 05/20/2021 patient seen in follow-up in intensive care unit. Yesterday he was intubated and placed on mechanical ventilator in view of worsening hypoxia and dyspnea. Today he remains sedated, and intubated on assist control mode of ventilation with a rate of 30, tidal volume is 325, FiO2 of 50% and PEEP of 10, this morning blood gases shows pO2 of 95, pCO2 of 70, and pH of 7.18. This was done on the above mentioned ventilator settings, today's chest x-ray shows some improvement of bibasilar infiltrates more so on the right, and possibility of developing small right pleural effusion. Patient is currently on a vasopressor support in the form of norepinephrine is 0.38 mics per kilo per minute which is about 24.7 mics per minute, he is on Diprivan at 50 mics per kilo per minute, and overnight he had episode of hypoglycemia and patient was placed on 10% dextrose at a rate of 100 ML per hour, patient was extremely dehydrated prior to his intubation, his had very poor oral intake. He was given 2 L fluid bolus yesterday, however still requiring vasopressor support, and case was discussed with nephrology who agreed that patient is still extremely intravascular volume depleted, and is recommending another 1 or 2 L fluid bolus today. Today's labs have been reviewed and his white blood cell count is 14.6, hemoglobin is 12.1, platelet count is 223, sodium is 148, potassium is 4.7, chloride is 121, CO2 is 23, BUN of 49 creatinine is 1.93, his LDH is 560, within normal limits, and CRP is 7.2, improving, his last proBNP from a couple days ago was 5790 however patient seems to be extremely dehydrated. His pro calcitonin levels were negative 2 at 0.16, and 0.12 however his chest x-ray findings suggest possibility of aspiration pneumonia, and patient was placed on Zosyn for possibility of aspiration. Sputum culture has been sent and pending, preliminary Gram stain showing few PMNs, rare budding yeast, final culture is pending, blood cultures are negative thus far. On 05/21/2021 patient seen in follow-up in intensive care unit, patient remains sedated, and intubated on assist control mode of ventilation with a rate of 36, tidal volume was 375, FiO2 of 40% and 5. The blood count shows pO2 of 71, pCO2 of 41, pH is 7.40, today's chest x-ray has been reviewed showing bilateral airspace disease with interstitial changes and prominent lung volumes indicative of underlying COPD. Vital signs have been stable overnight, patient is on norepinephrine 0.1 mics per kilo per minute, Diprivan is present, and D5W at 100 ML per hour, and plan an 70-20 ML per hour, he is on tube feedings with Nepro at 20 ML per hour and 10 of water flushes, he is in sinus mechanism with a rate of 82 BPM, patient has had fevers overnight with a temp of 100.5F. He is covered with Zosyn. His blood cultures have been negative, his sputum culture showed yeast species, culture is pending. Today's labs have been reviewed and his white blood cell count is 8.5, hemoglobin is 10.4, his sodium is improved and is down to 149, in follow-up sodium level came back at 151, patient remains on free water at 100 ML per hour, nephrology is following. Potassium is 4.0, chloride is 121, BUN is 40, creatinine is improved and is down to 1.58, his cortisol level 7, and this was on IV Decadron 6 mg daily, and patient remains on prophylactic dose Lovenox, Zosyn, yesterday he received an additional liter bolus in IV fluids. His urine output is in the order of 100-125 ML per hour. Overall his oxygenation and ventilation have significantly improved, and patient is maintaining stable O2 saturations on FiO2 of 40% and PEEP of 5, his peak Pressure is only 18, his plateau is 13. On 05/22/2021 patient seen in follow-up in intensive care unit, he remains intubated on mechanical ventilator, currently assist control mode of ventilation with a rate at 36, tidal 375, FiO2 40% and PEEP of 5, this was blood gas shows pO2 of 112, pCO2 40, pH of 7.40 and this was done and the above-mentioned vent settings, today's chest x-ray has been reviewed showing chronic emphysematous pulmonary fibrotic changes with moderate bilateral pleural effusions and susan ateral multifocal increased opacities consistent with COVID-19 infection. No significant change compared the day before. Patient's sedation has been placed on hold this morning. Patient is waking up, becoming slightly restless, however he is not following commands yet. He is on D5W at rate of 100 ML per hour, norepinephrine drip has been weaned off, patient continues on hydrocortisone 100 mg every 8 hours for his serum cortisol level of 7, his TSH level was 0.923, within normal limits. He's tolerating tube feedings he is receiving Nepro at 27 per hour with a goal of 27 standard water flushes, vital signs have been stable, no fever overnight. He did have a low-grade fever early this morning with a temp of 99.7F. His blood cultures have been negative, his sputum culture showed Romelia species. Patient remains on Zosyn for antibiotic coverage, on prophylactic Lovenox 40 mg daily. The rest of patient's labs have been reviewed, his white blood cell count is 6.0, hemoglobin of 9.6, sodium is improving and is down to 148, potassium is 4.0, chloride is 122, BUN is 26, creatinine is improving and is down to 1.55. On 05/23/2021 patient seen in follow-up in the intensive care unit. He remains intubated, on mechanical ventilator, currently on assist control mode of ventilation with a rate of 36, tidal volume 375, FiO2 of 40% and PEEP of 5. This morning's blood gas shows pO2 of 136, pCO2 of 40, and pH of 7.42, this was done and above-mentioned vent settings. Today's chest x-ray has been reviewed showing chronic emphysematous and pulmonary fibrotic changes with small bilate ral pleural effusions and bilateral multifocal opacities, without significant change compared to the prior study. Today's labs have been reviewed, white blood cell count is 5.5, hemoglobin is 8.9, sodium is 147, improving potassium is 3.5, chloride is 118, CO2 is 27, BUN 37, creatinine is 1.44. Patient is receiving D5W 1 50 ML per hour, nephrology is managing, he remains on hydrocortisone 100 mg every 8 hours, his been off vasopressor support for 48 hours. He has had no fever or chills. He remains on Zosyn. Sputum culture showed Romelia species, blood cultures have been negative. Neurologically patient has been off sedation for the past 24 hours. However patient is not following commands, although he is awake, at times he becomes restless, his been getting intermittent doses of when necessary on as-needed basis. We understand patient has underlying history of dementia however his baseline mental status is not known to us, his level of consciousness is certainly improved, however patient has not been able to follow any instructions. And for that reason patient has not been able to tolerate weaning trials, last night he had to be placed on assist-control mode of ventilation because he was extremely anxious, she did tolerate pressure support of 14 and IMV of 10 for a couple of hours, however became very agitated, and was placed back on assist control mode of ventilation. he is tolerating tube feedings. On 05/27/2021 patient seen in follow-up in the intensive care unit, patient remains intubated, and sedated on assist control mode of ventilation with a rate of 30, tidal 350, FiO2 of 50% and PEEP of 5, this morning's blood gas shows pO2 of 89, pCO2 45, pH is 7.3. Today's chest x-ray showing stable portable chest, bibasilar opacities, no significant change from prior exam, patient remains on Diprivan at 35 mics per kilo per minute, dopamine remains at 5 mics per kilo per minute, norepinephrine is at 1.5 mics per minute, D5W remains a 75 ML per hour, and tube feedings are currently on hold for recent trach and PEG placement by Dr. Mazariegos yesterday on 05/26/2021. He's had no acute events overnight. Today's labs have been reviewed, white blood cell count has increased and is currently 24.8, hemoglobin is 10.8, platelet count is 366, sodium is 140, potas sium is 3.2, chloride is 112, CO2 is 26, BUN is 18 creatinine is 1.14. Sputum culture from 2 days ago is showing gram-negative bacilli, final culture is still pending, patient currently remains on Zosyn, blood cultures are negative On 05/28/2021 patient seen in follow-up in intensive care unit, he remains trached to the ventilator, on assist control mode of ventilation with a rate of 30, tidal vital 350, FiO2 50% and PEEP of 5. He is sedated with Diprivan at 30 mics per kilo per minute, he is on 0.9 normal saline at a 20 ML per hour, D5W at 75 ML per hour, he is requiring small doses of norepinephrine and 5 mics per minute. Patient has been intermittently bradycardic with a heart rate in the low 40s, currently is in sinus mechanism with a rate of 60, his been experiencing intermittent hypotension, episodes of tachycardia. He is hypothermic this morning with a temp of 94.8F, he is on the warming blanket. Patient was found to have ESBL E. coli in his sputum culture, current antibiotic coverage is Avycaz, ID service is following. A new set of blood cultures will be sent, we'll send another cortisone level. Patient currently remains on hydrocortisone at 50 mg twice daily, however he may be experiencing worsening sepsis and septic shock. Today's labs have been reviewed, his white blood cell count is 16.1, hemoglobin is 9.7, d-dimer is 1.11, sodium is 140, potassium is 3.8, chloride is 111, CO2 is 26, BUN is 16 creatinine is 1.1 his LDH is 513, CRP is 15.8. His chest x-ray shows chronic emphysematous and pulmonary fibrotic changes with small right greater than left bilateral pleural effusions and bilateral mid to lower lung infiltrates. Objective - Vital Signs Vital signs: Vital Signs Temp 94.8 F L 05/28/21 08:00 Pulse 40 L 05/28/21 09:00 Resp 30 H 05/28/21 09:00 BP 130/69 05/28/21 07:00 Pulse Ox 100 05/28/21 09:00 Intake & Output 05/27/21 05/28/21 05/28/21 18:59 06:59 18:59 Intake Total 2150.791 2208.35 420.553 Output Total 1285 1010 475 Balance 710.150 0825.35 -54.447 Weight 74.7 kg Intake: IV 1316 1676 273 0.9 NaCl- 280 240 20 Ceftazidime/Avibactam 2.5 100 gm In Sodium Chloride 0. 9% 100 ml @ 50 mls/hr IVPB Q8HR [facility] Rx#: [id number] Dextrose 5% in Water 1, 900 900 150 000 ml @ 75 mls/hr IV . [id number] [facility] Rx#:[id number] Potassium Chloride IVPB 200 Valproate Sodium 250 mg 100 200 100 In Sodium Chloride 0.9% 100 ml @ 100 mls/hr IVPB Q6HR@0300,0900,1500,2100 [facility] Rx#:[id number] pressure bag 36 36 3 Intake, IV Titration 634.791 178.35 103.553 Amount DOPamine DRIP 800 mg In 63.219 Water For Injection 1 250ml.bag @ 5 MCG/KG/MIN 6.375 mls/hr IV .Q24H [facility] Rx#:[id number] Norepinephrine 4 mg In 121.588 78.35 103.553 Sodium Chloride 0.9% 250 ml @ 0.05 MCG/KG/MIN 13. 697 mls/hr IV .[id number] [facility] Rx#:[id number] Piperacillin-Tazobactam 3 100 .375 gm In Sodium Chloride 0.9% 100 ml @ 25 mls/hr IVPB Q8HR [facility] Rx# :[id number] Potassium Chloride 10 meq 100 In Water For Injection 1 100ml.bag @ 100 mls/hr IVPB Q1HR [facility] Rx#: [id number] propofoL 1,000 mg In 249.984 100 Empty Bag 1 bag @ Titrate IV .Q0M [facility] Rx#: [id number] Tube Feeding 110 264 44 Other 90 90 Output: Urine 1285 1010 475 Other: Voiding Method Indwelling Catheter Indwelling Catheter # Voids 2 ABP, PAP, CO, CI - Last Documented Arterial Blood Pressure 120/50 - Exam GENERAL EXAM: Extremely frail and cachectic 70-year-old white male, trached to the ventilator on assist control mode of ventilation with a rate of 30, tidal on his 350, FiO2 50% and PEEP of 5, comfortable in no apparent distress. HEAD: Normocephalic/atraumatic. EYES: Normal reaction of pupils, equal size. Conjunctiva pink, sclera white. NOSE: Clear with pink turbinates. THROAT: No erythema or exudates. NECK: No masses, no JVD, no thyroid enlargement, no adenopathy. Midline tracheostomy in place, clean dry and intact, and patient is connected to the ventilator with assist control mode of ventilation CHEST: No chest wall deformity. Symmetrical expansion. LUNGS: Equal air entry with diminished breath sounds and crackles CVS: Regular rate and rhythm, normal S1 and S2, no gallops, no murmurs, no rubs ABDOMEN: Soft, nontender. No hepatosplenomegaly, normal bowel sounds, no guarding or rigidity. PEG tube is in place EXTREMITIES: No clubbing, mild generalized swelling noted in upper and lower extremities no cyanosis, 2+ pulses and upper and lower extremities. MUSCULOSKELETAL: Muscle strength and tone normal. SPINE: No scoliosis or deformity SKIN: No rashes CENTRAL NERVOUS SYSTEM: Sedated, intubated No focal deficits, tone is normal in all 4 extremities. - Labs CBC & Chem 7: 05/28/21 04:15 05/28/21 04:15 Labs: Abnormal Lab Results - Last 24 Hours (Table) 05/27/21 05/27/21 05/28/21 Range/Units 17:38 23:41 01:38 WBC (3.8-10.6) k/uL RBC (4.30-5.90) m/uL Hgb (13.0-17.5) gm/dL Hct (39.0-53.0) % Neutrophils # (1.3-7.7) k/uL Lymphocytes # (1.0-4.8) k/uL D-Dimer (<0.60) mg/L FEU ABG pCO2 (35-45) mmHg ABG pO2 (83-108) mmHg ABG HCO3 (21-25) mmol/L ABG Total CO2 (19-24) mmol/L ABG O2 Saturation (94-97) % Chloride (98-107) mmol/L Glucose (74-99) mg/dL POC Glucose (mg/dL) 110 H 105 H 116 H (75-99) mg/dL Calcium (8.4-10.2) mg/dL AST (17-59) U/L C-Reactive Protein (<1.0) mg/dL Total Protein (6.3-8.2) g/dL Albumin (3.5-5.0) g/dL 05/28/21 05/28/21 05/28/21 Range/Units 04:15 04:15 04:15 WBC 16.1 H (3.8-10.6) k/uL RBC 3.06 L (4.30-5.90) m/uL Hgb 9.7 L (13.0-17.5) gm/dL Hct 29.7 L (39.0-53.0) % Neutrophils # 15.1 H (1.3-7.7) k/uL Lymphocytes # 0.3 L (1.0-4.8) k/uL D-Dimer 1.11 H (<0.60) mg/L FEU ABG pCO2 (35-45) mmHg ABG pO2 (83-108) mmHg ABG HCO3 (21-25) mmol/L ABG Total CO2 (19-24) mmol/L ABG O2 Saturation (94-97) % Chloride 111 H (98-107) mmol/L Glucose 138 H (74-99) mg/dL POC Glucose (mg/dL) (75-99) mg/dL Calcium 7.5 L (8.4-10.2) mg/dL AST 13 L (17-59) U/L C-Reactive Protein 15.8 H (<1.0) mg/dL Total Protein 4.5 L (6.3-8.2) g/dL Albumin 1.9 L (3.5-5.0) g/dL 05/28/21 05/28/21 Range/Units 05:32 06:00 WBC (3.8-10.6) k/uL RBC (4.30-5.90) m/uL Hgb (13.0-17.5) gm/dL Hct (39.0-53.0) % Neutrophils # (1.3-7.7) k/uL Lymphocytes # (1.0-4.8) k/uL D-Dimer (<0.60) mg/L FEU ABG pCO2 49 H (35-45) mmHg ABG pO2 130 H (83-108) mmHg ABG HCO3 27 H (21-25) mmol/L ABG Total CO2 29 H (19-24) mmol/L ABG O2 Saturation 99.5 H (94-97) % Chloride (98-107) mmol/L Glucose (74-99) mg/dL POC Glucose (mg/dL) 119 H (75-99) mg/dL Calcium (8.4-10.2) mg/dL AST (17-59) U/L C-Reactive Protein (<1.0) mg/dL Total Protein (6.3-8.2) g/dL Albumin (3.5-5.0) g/dL Microbiology - Last 24 Hours (Table) 05/25/21 04:54 Gram Stain - Final Sputum Sputum Culture - Final Escherichia coli Assessment and Plan Plan: Assessment: #1. Acute hypoxic respiratory failure related to acute COVID-19 pneumonia, and possibility of bacterial infection/aspiration related pneumonia is not entirely excluded, sputum culture showed ESBL E. coli, and patient will be covered with meropenem. ID service is on the case. Patient was brought into the emergency department on 05/17/2021 per EMS, patient is a poor historian, reportedly has history of bipolar disease and dementia. Came in primarily for evaluation of altered mental status. Transferred from [place] emergency department for COVID-19 related pneumonia. The patient was taken to the hospital in [place] 4 days prior to this admission and the symptom onset was probably even prior to that. Exact onset of symptoms is not known. Patient was transferred to the intensive care unit on 05/19/2021 for worsening hypoxia, and hypercapnia, and altered mental status, and was intubated on 05/19/2021 on assist control mode of ventilation with a rate of 30, tidal on his 300, FiO2 50% and PEEP of 10. Patient had tolerated pressure support trials, and was extubated on 05/24/2021 however failed and was reintubated on 05/25/2021 #2. Acute hypercapnic respiratory failure, related to acute aspiration, and possible COVID-19 pneumonia, requiring intubation and mechanical ventilator support #3. Hypotension, related to dehydration, and possibility of septic shock. Patient remains on norepinephrine for vasopressor support, serum cortisol level was only 7, stress dose hydrocortisone was started, and is currently at 50 mg every 12 hours #4. Altered mental status with worsened from baseline #5. History of dementia and schizoaffective disorder #6. Acute dehydration and hypernatremia, on the D5W at 100 ML per hour, improving #7. Chronic stage 3 kidney disease #8. COPD #9. History of coronary artery disease #10. GERD/reflux #11. Hyperlipidemia #12. Acute kidney injury related to ATN, and dehydration, patient continues on IV hydration and continues to receive fluid boluses #13. Hyperkalemia related to GU[place]UPE, resolved #14. Hypoglcemia, was placed on D10 at 100 ml, will start tube feeds today. Blood sugars improved Plan: Today's blood gases, labs, CXR and labs reviewed Continue current ventilator settings FiO2 was cut back down to 40% Chest x-ray showing small right greater than left pleural effusions However patient is requiring norepinephrine Oxygenation is stable, Patient is hypothermic and is suspected to be septic Sputum culture showing ESBL E. coli, and we'll cover the patient with meropenem until further ID recommendation has been made We'll discontinue have a case Obtain 2 more sets of blood cultures Continue close monitoring in the ICU Hydrocortisone to 50 mg TID Continue nutritional support We'll try to get the patient a sedation holiday today If tolerates it well we'll proceed with spontaneous breathing trials pressure- support of 8 and CPAP of 5 Follow-up chest x-ray, labs and blood gases in the morning I performed a history & physical examination of the patient and discussed their management with my nurse practitioner, Veronica Chiu. I reviewed the nurse practitioner's note and agree with the documented findings and plan of care. Lung sounds are positive for diminished breath sounds throughout the lung [place]. The findings and the impression was discussed with the patient. I attest to the documentation by the nurse practitioner. Time with Patient: Greater than 30
[2021-05-28 11:49] LABS: Glucose,Whole Blood 120 mg/dL (75-99)
[2021-05-28] MEDS: NYSTATIN 100,000 UNIT/ML SUSP 500,000 UNIT/5 ML CUP PO SCH ×4 (12:05→21:23)
[2021-05-28] MEDS: MEROPENEM 2 GM in SODIUM CHLORIDE 0.9% 100 ML IVPB SCH ×2 (13:50→21:22)
[2021-05-28] MEDS: DEXTROSE 5% IN WATER 1,000 ML IV SCH (13:52)
[2021-05-28] MEDS: OLANZapine ODT 5 MG TAB PO SCH (15:42)
[2021-05-28] MEDS: MIDODRINE 5 MG TAB PO SCH ×2 (15:42→17:50)
[2021-05-28 16:24] LABS: ABG Base Excess 0.3 mmol/L; ABG HCO3 27 mmol/L (21-25); ABG Oxygen Saturation 95.9 % (94-97); ABG PCO2 57 mmHg (35-45); ABG PH 7.29 (7.35-7.45); ABG PO2 82 mmHg (83-108); ABG TCO2 29 mmol/L (19-24)
[2021-05-28] MEDS: CISATRACURIUM 200 MG in SODIUM CHLORIDE 0.9% 180 ML IV SCH (16:25)
[2021-05-28 16:26] LABS: Allen Test Performed? no
--- NOTE | 2021-05-28 16:29 | XR ---
EXAMINATION TYPE: XR chest 1V portable DATE OF EXAM: 05/28/2021 CLINICAL HISTORY: Difficulty breathing and pneumonia progress study. TECHNIQUE: Single AP portable upright view of the chest is obtained. COMPARISON: Chest x-ray from earlier today and older studies FINDINGS: Stable tracheostomy tube. Stable Right internal jugular central venous. Background chronic emphysematous change with bilateral multifocal mid to lower lung opacities. Improv ed bibasilar opacities consistent with improved effusions. Cardiac silhouette size is stable and with in normal limits . Osseous structures remain demineralized. Underlying scoliosis curvature is redemon strated. IMPRESSION: Chronic emphysematous and pulmonary fibrotic changes with improved bilateral pleural effu sions. Some areas of multifocal persistent bilateral acute infiltrates remain present also improved f rom earlier today.
--- NOTE | 2021-05-28 16:37 | P.PN ---
Subjective Progress Note Date: 05/28/21 CHIEF COMPLAINT: COVID-19 pneumonia HISTORY OF PRESENT ILLNESS: Patient is in the ICU intubated and sedated. Patient is status post PEG tube and tracheostomy placement on 05/26/21. Patient has had no further bleeding from tracheostomy site. They're weaning patient off of Levophed today. Patient tolerating tube feedings PHYSICAL EXAM: VITAL SIGNS: Reviewed. GENERAL: no acute distress. HEENT: Moist buccal mucosa. Head is atraumatic, normocephalic. Trachea site clean dry and intact ABDOMEN: Soft. Nondistended. PEG tube site clean dry and intact NEUROLOGIC: Intubated and sedated ASSESSMENT: 1. Acute hypoxic respiratory failure secondary to COVID-19 pneumonia with mechanical ventilation and difficulty weaning from the vent status post tracheostomy placement 2. Severe protein calorie malnutrition status post PEG tube placement PLAN: -Continue titrate to feedings per dietitian recommendations -Continue supportive care -Continue ICU management Physician Counseling Case Manager note has been reviewed by physician. Signing provider agrees with the documented findings, assessment, and plan of care. Objective - Vital Signs Vital signs: Vital Signs Temp 96.2 F L 05/28/21 12:00 Pulse 67 05/28/21 13:00 Resp 42 H 05/28/21 13:00 BP 113/62 05/28/21 13:00 Pulse Ox 100 05/28/21 13:00 Intake & Output 05/27/21 05/28/21 05/28/21 18:59 06:59 18:59 Intake Total 2150.791 2208.35 820.553 Output Total 1285 1010 975 Balance 456.335 7621.35 -154.447 Weight 74.7 kg 74.7 kg Intake: IV 1316 1676 573 0.9 NaCl- 280 240 20 Ceftazidime/Avibactam 2.5 100 gm In Sodium Chloride 0. 9% 100 ml @ 50 mls/hr IVPB Q8HR [facility] Rx#: [id number] Dextrose 5% in Water 1, 900 900 450 000 ml @ 75 mls/hr IV . [id number] [facility] Rx#:[id number] Potassium Chloride IVPB 200 Valproate Sodium 250 mg 100 200 100 In Sodium Chloride 0.9% 100 ml @ 100 mls/hr IVPB Q6HR@0300,0900,1500,2100 [facility] Rx#:[id number] pressure bag 36 36 3 Intake, IV Titration 634.791 178.35 203.553 Amount DOPamine DRIP 800 mg In 63.219 Water For Injection 1 250ml.bag @ 5 MCG/KG/MIN 6.375 mls/hr IV .Q24H [facility] Rx#:[id number] Norepinephrine 4 mg In 121.588 78.35 103.553 Sodium Chloride 0.9% 250 ml @ 0.05 MCG/KG/MIN 13. 697 mls/hr IV .[id number] [facility] Rx#:[id number] Piperacillin-Tazobactam 3 100 .375 gm In Sodium Chloride 0.9% 100 ml @ 25 mls/hr IVPB Q8HR [facility] Rx# :[id number] Potassium Chloride 10 meq 100 In Water For Injection 1 100ml.bag @ 100 mls/hr IVPB Q1HR [facility] Rx#: [id number] propofoL 1,000 mg In 249.984 100 100 Empty Bag 1 bag @ Titrate IV .Q0M [facility] Rx#: [id number] Tube Feeding 110 264 44 Other 90 90 Output: Urine 1285 1010 975 Other: Voiding Method Indwelling Catheter Indwelling Catheter Indwelling Catheter # Voids 2 ABP, PAP, CO, CI - Last Documented Arterial Blood Pressure 93/44 - Labs CBC & Chem 7: 05/28/21 04:15 05/28/21 04:15 Labs: Abnormal Lab Results - Last 24 Hours (Table) 05/27/21 05/27/21 05/28/21 Range/Units 17:38 23:41 01:38 WBC (3.8-10.6) k/uL RBC (4.30-5.90) m/uL Hgb (13.0-17.5) gm/dL Hct (39.0-53.0) % Neutrophils # (1.3-7.7) k/uL Lymphocytes # (1.0-4.8) k/uL D-Dimer (<0.60) mg/L FEU ABG pH (7.35-7.45) ABG pCO2 (35-45) mmHg ABG pO2 (83-108) mmHg ABG HCO3 (21-25) mmol/L ABG Total CO2 (19-24) mmol/L ABG O2 Saturation (94-97) % Chloride (98-107) mmol/L Glucose (74-99) mg/dL POC Glucose (mg/dL) 110 H 105 H 116 H (75-99) mg/dL Calcium (8.4-10.2) mg/dL AST (17-59) U/L C-Reactive Protein (<1.0) mg/dL Total Protein (6.3-8.2) g/dL Albumin (3.5-5.0) g/dL 05/28/21 05/28/21 05/28/21 Range/Units 04:15 04:15 04:15 WBC 16.1 H (3.8-10.6) k/uL RBC 3.06 L (4.30-5.90) m/uL Hgb 9.7 L (13.0-17.5) gm/dL Hct 29.7 L (39.0-53.0) % Neutrophils # 15.1 H (1.3-7.7) k/uL Lymphocytes # 0.3 L (1.0-4.8) k/uL D-Dimer 1.11 H (<0.60) mg/L FEU ABG pH (7.35-7.45) ABG pCO2 (35-45) mmHg ABG pO2 (83-108) mmHg ABG HCO3 (21-25) mmol/L ABG Total CO2 (19-24) mmol/L ABG O2 Saturation (94-97) % Chloride 111 H (98-107) mmol/L Glucose 138 H (74-99) mg/dL POC Glucose (mg/dL) (75-99) mg/dL Calcium 7.5 L (8.4-10.2) mg/dL AST 13 L (17-59) U/L C-Reactive Protein 15.8 H (<1.0) mg/dL Total Protein 4.5 L (6.3-8.2) g/dL Albumin 1.9 L (3.5-5.0) g/dL 05/28/21 05/28/21 05/28/21 Range/Units 05:32 06:00 11:47 WBC (3.8-10.6) k/uL RBC (4.30-5.90) m/uL Hgb (13.0-17.5) gm/dL Hct (39.0-53.0) % Neutrophils # (1.3-7.7) k/uL Lymphocytes # (1.0-4.8) k/uL D-Dimer (<0.60) mg/L FEU ABG pH (7.35-7.45) ABG pCO2 49 H (35-45) mmHg ABG pO2 130 H (83-108) mmHg ABG HCO3 27 H (21-25) mmol/L ABG Total CO2 29 H (19-24) mmol/L ABG O2 Saturation 99.5 H (94-97) % Chloride (98-107) mmol/L Glucose (74-99) mg/dL POC Glucose (mg/dL) 119 H 120 H (75-99) mg/dL Calcium (8.4-10.2) mg/dL AST (17-59) U/L C-Reactive Protein (<1.0) mg/dL Total Protein (6.3-8.2) g/dL Albumin (3.5-5.0) g/dL 05/28/21 Range/Units 16:22 WBC (3.8-10.6) k/uL RBC (4.30-5.90) m/uL Hgb (13.0-17.5) gm/dL Hct (39.0-53.0) % Neutrophils # (1.3-7.7) k/uL Lymphocytes # (1.0-4.8) k/uL D-Dimer (<0.60) mg/L FEU ABG pH 7.29 L (7.35-7.45) ABG pCO2 57 H (35-45) mmHg ABG pO2 82 L (83-108) mmHg ABG HCO3 27 H (21-25) mmol/L ABG Total CO2 29 H (19-24) mmol/L ABG O2 Saturation (94-97) % Chloride (98-107) mmol/L Glucose (74-99) mg/dL POC Glucose (mg/dL) (75-99) mg/dL Calcium (8.4-10.2) mg/dL AST (17-59) U/L C-Reactive Protein (<1.0) mg/dL Total Protein (6.3-8.2) g/dL Albumin (3.5-5.0) g/dL
[2021-05-28 17:44] LABS: Glucose,Whole Blood 127 mg/dL (75-99)
[2021-05-28] MEDS ORDERED: OLANZapine ODT 10 MG TAB PO SCH (21:00)
[2021-05-28] MEDS: ATORVASTATIN 20 MG TAB PO SCH (21:23)
[2021-05-28] MEDS: OLANZapine ODT 10 MG TAB PO SCH (22:06)
[2021-05-29 00:03] LABS: Glucose,Whole Blood 139 mg/dL (75-99)
[2021-05-29] MEDS: HYDROCORTISONE SUCCINATE 100 MG/2 ML VIAL IV SCH ×5 (00:35→23:39)
--- NOTE | 2021-05-29 01:40 | P.PN ---
Subjective Progress Note Date: 05/28/21 This is a 70-year-old male who was recently admitted with change in mental status and fall and also shortness of breath and acute COVID-19 pneumonia and being closely monitored. Patient was continued on high flow oxygen although respiratory status continued to deteriorate and an A team was called. Patient was brought to the ICU for close monitoring and x-ray showed some bilateral lower lobe pneumonia which appears unchanged compared to recent exam with no obvious heart failure. Patient was placed on mechanical vent and intubated and sedated and is being closely monitored. Multiple medical consultations including pulmonary and infectious disease following closely. 05/20/2021 Patient is seen in follow-up activity is to be closely monitored in the ICU. Blood pressure and heart rate has been extremely variable and patient is maintained on D10 in water along with norepinephrine and will continue. Pulmonary and infectious disease following closely. Patient continues with worsening kidney functions nephrology consulted and patient is being given a liter bolus for hypotension and repeat sodium level ordered. Patient also continues on Zosyn and ID following closely. Patient continues with low blood sugar readings as well and we'll continue D10 and close glucose monitoring. Chest x-ray shows some improvement in bibasilar infiltrates more so on the right and possibly developing small right pleural effusion. 05/21/2021 Patient is seen and evaluated this morning continues to be in the ICU with multiple medical consultations following. Patient is continued on IV antibiotics with ID following. Cultures continue to be negative and WBC is 8.5. Patient did have low grade temp today. Patient continues on mechanical vent and sedated. Chest xray similar to previous exam and will continue to monitor. Prognosis remains guarded. Patient also continued on norepinephrine. 05/22/2021 Patient is seen and evaluated today continues to be on mechanical vent with an FiO2 of 40% PEEP is 5. Patient continuing with weaning trials and assist mode on mechanical vent although patient continues to not follow commands per nursing staff. Per pulmonary sightseeing guide continued attempts at weaning. Chest x-ray shows chronic emphysematous changes and pulmonary fibrosis with moderate bilater al pleural effusions and bilateral multifocal increased opacification consistent with COVID-19 infection are all redemonstrated with no significant change from yesterday. Sputum culture finalized showing Romelia species not albicans, glabrata along with Romelia albicans and infectious disease is following. Patient continues on IV antibiotics in the form of Zosyn. Patient is currently off norepinephrine and receiving Solu-Cortef along with valproic acid and Depakote. Patient is continued on Lovenox for DVT prophylaxis. Patient also continues on D5 in water at 100 mL per hour. Blood gases are improving and pulmonary discussing possible extubation. 05/23/2021 Patient is seen this morning continues to be on mechanical vent with an FiO2 of 40 and a PEEP of 5 with continued weaning trials. Patient is off sedation and does open eyes to verbal stimuli although does not follow commands. Chest x-ray today shows chronic emphysematous and pulmonary fibrotic changes with small size bilateral pleural effusions and bilateral multifocal increased opacification is consistent with COVID-19 infection are again redemonstrated with no significant change from previous. General surgery consulted for possible trach and peg tube placement. 05/24/2021 Patient with spontaneous eye opening during assessment, eyes are tracking, however when asked to squeeze fingers patient unable to do so and did not wiggle toes when asked. He was not responsive to commands or yes or no questions. Continues in the ICU on 5L NC with an oxygen saturation of 91%. He is afebrile, Heart rate is in the 40-50's dropping into the mid 30's. Unclear whether patient is in a heart block, nurse reports HR of 30's seems to be when he is sleeping. EKG will try to be obtained when he is in the 30's. Respirations are 23, blood pressure 135/55. Chest xray today remains unchanged. Possible trach and PEG tube wednesday if needed. Labs today show WBC 7.0, hgb 9.1, D-dimer 0.86, sodium 142, potassium 3.6, BUN 33, creatinine 1.28, glucose in the 130s, calcium 7.8, CRP 1.7, total protein 4.6, albumin 2.0. Multiple consultations. Prognosis remains guarded. 05/25/2021 Throughout the evening patient desaturated and his blood pressure was dropping while on the levophed and his heart rate was increasing and then once he was off the levophed his heart rate was increasing and his blood pressure was dropping. Patient was reintubated with an Fi02 of 60%. Blood gases at the time showed a pCO2 of greater than 120, pH 6.97, pO2 170, total oxygen saturation 98. Oxygen saturations 98%, he is afebrile, pulse rate 43 appears sinus bradycardia on EKG that was obtained midmorning. Blood pressure 135/75. Blood gases have improved with a pH now 7.30, pCO2 57, pO2 57, HCO3 28, total CO2 30 and O2 saturation 87.5. Sodium 140, potassium 3.7, chloride 109, CO2 28, BUN 27, creatinine 1.36, blood glucose 120, calcium 8.1, AST 27, ALT 19, LDH 585, CRP 1.9. Chest x-ray today shows as based consolidation atelectasis and volume loss in the right hemithorax which is slightly compared to exam yesterday. Has pulmonary interstitial edema on the left side without change. Plan is for a PEG, trach tomorrow. Cardiology was consulted and started patient on a dopamine infusion. Patient is on D5 water at 75 mL per hour, levophed infusing, propofol, on IV Zosyn and IV valproic acid. Labs initial white count 13, hemoglobin 10.7, d- dimer 1.84. 05/26/2021 Patient is seen today in follow up in the ICU being closely monitored. Multiple medical consultations following along with general surgery and is scheduled for peg and trach placement today. Tube feedings on hold. Patient continues on mechanical vent and FI02 is 50% peep is 5. Chest xray today shows COPD right greater than left with covid infiltrates and aeration improving now on the right. Potassium is 3.2 and being replaced. Lovenox on hold for the procedure as well. 05/27/2021 Patient is seen in follow-up in the ICU with multiple medical consultations following. Patient is status post PEG and trach placement and will be initiating tube feeds once cleared by surgery. Sputum culture finalized showing E. coli with ESBL and resistance and infectious disease is following. Patient was continued on dopamine along with Levophed and attempting to wean per nursing staff. Patient also continues in D5 water with nephrology following closely. Patient is on IV Zosyn along with nystatin and will continue. Chest x-ray today shows stable portable chest with no evidence of pneumothorax and no change in bibasilar opacities. Patient continues on propofol and FiO2 is 50% with a PEEP of 5. Potassium found a 3.2 and replaced and will repeat labs. 05/28/2021 Patient is seen in follow-up this morning continues to be in the ICU with multiple medical consultations following. Patient is currently continued on mechanical vent via tracheostomy and FiO2 is 40% with a PEEP of 5. Patient is status post peg and trach and surgery following. Patient resumed on lovenox and tube feedings. Tolerating tube feedings thus far. Patient continues on levophed and off dopamine. Patient was on Midodrine and will resume along with his olanzapine and continue to monitor closely. Patient is maintained on Meropenem and ID following closely. Patient also continues on solu-cortef and d5 in water with nephrology following as well. Review of systems: Unable to obtain as patient is mechanically intubated and sedated Labs: WBC is 16.1, hemoglobin is 9.7, d-dimer is 1.11, sodium is 140, potassium 3.8, BUN 16, creatinine 1.16, calcium 7.5, LDH 513, CRP 15.8, cortisol 18 Active Medications Acetaminophen (Acetaminophen Tab 325 Mg Tab) 650 mg PO Q6HR PRN PRN Reason: Mild Pain or Fever > 100.5 Last Admin: 05/18/21 23:16 Dose: 650 mg Documented by: Albuterol Sulfate (Albuterol Hfa Inhaler) 2 puff INHALATION RT-QID [facility] Last Admin: 05/28/21 11:59 Dose: 2 puff Documented by: Artificial Tears (Artificial Tears-Hypromellose Drops 15 Ml Btl) 1 drops BOTH EYES Q4HR PRN PRN Reason: Dry Eye(s) Atorvastatin Calcium (Atorvastatin 20 Mg Tab) 20 mg PO HS [facility] Last Admin: 05/27/21 22:08 Dose: 20 mg Documented by: Enoxaparin Sodium (Enoxaparin 40 Mg/0.4 Ml Syringe) 40 mg SQ DAILY [facility] Last Admin: 05/28/21 08:25 Dose: 40 mg Documented by: Ferrous Sulfate (Ferrous Sulfate 325 Mg Tab) 325 mg PO DAILY [facility] Last Admin: 05/28/21 08:25 Dose: 325 mg Documented by: Folic Acid (Folic Acid 1 Mg Tab) 1 mg PO DAILY [facility] Last Admin: 05/28/21 08:25 Dose: 1 mg Documented by: Hydrocortisone Sodium Succinate (Hydrocortisone Succinate 100 Mg/2 Ml Vial) 50 mg IV Q8HR [facility] Dextrose/Water (Dextrose 5%-Water Iv Soln) 1,000 mls @ 75 mls/hr IV .[id number] [facility] Last Admin: 05/28/21 13:52 Dose: 75 mls/hr Documented by: Norepinephrine Bitartrate 4 mg (/ Sodium Chloride) 254 mls @ 13.697 mls/hr IV .[id number] [facility]; Protocol Last Titration: 05/28/21 11:00 Dose: 0.03 mcg/kg/min, 8.218 mls/hr Documented by: Propofol 1,000 mg/ IV Solution 100 mls @ 0 mls/hr IV .Q0M [facility]; Protocol Last Admin: 05/28/21 12:06 Dose: 30 mcg/kg/min, 13.446 mls/hr Documented by: Meropenem 2 gm/ Sodium (Chloride) 100 mls @ 33.3 mls/hr IVPB Q8H [facility]; Protocol Last Admin: 05/28/21 13:50 Dose: 33.3 mls/hr Documented by: Midodrine (Midodrine 5 Mg Tab) 10 mg PO AC-TID [facility] Miscellaneous Information (Potassium Replacement Protocol 1 Each Misc) 1 each M ISCELLANE DAILY PRN; Protocol PRN Reason: Per Protocol Nystatin (Nystatin 100,000 Unit/Ml Susp 500,000 Unit/5 Ml Cup) 500,000 unit PO QID [facility] Last Admin: 05/28/21 13:50 Dose: 500,000 unit Documented by: Olanzapine (Olanzapine Odt 5 Mg Tab) 5 mg PO DAILY [facility] Olanzapine (Olanzapine Odt 10 Mg Tab) 20 mg PO HS [facility] Pantoprazole Sodium (Pantoprazole 40 Mg/10 Ml Vial) 40 mg IVP DAILY [facility] Last Admin: 05/28/21 08:25 Dose: 40 mg Documented by: Physical Exam: Gen: this is a 70-year-old male currently sedated and intubated. 50% mechanical ventilation with a PEEP of 5 HEENT: Head is atraumatic, normocephalic. Pupils equal, round. Sclerae is anicteric. NECK: Supple. No JVD. No lymphadenopathy. No thyromegaly. LUNGS: Diminished breath sounds bilaterally with coarse rhonchi and crackles noted. No intercostal retractions. HEART: S1, S2 are muffled ABDOMEN: Soft. Bowel sounds are present. No masses. No tenderness. EXTREMITIES: No pedal edema. No calf tenderness. NEUROLOGICAL: Patient is currently intubated and sedated Assessment: Acute COVID-19 infection with acute COVID-19 bilateral interstitial pneumonia, right more than left with acute hypoxic respiratory failure, now requiring mechanical ventilation with extubation on 05/24/2021, and re-intubation on 05/25/2021 status post peg tube and tracheostomy placement, ok resume tube feedings Acute kidney injury secondary to acute tubular necrosis from septic shock Chronic kidney disease stage III secondary to nephrosclerosis Hypoglycemia, improved Change in mental status, metabolic encephalopathy, multifactorial Falling, gait dysfunction Anemia, normocytic anemia of undetermined significance Hypernatremia from poor oral intake Hyperkalemia secondary to acute kidney injury, resolved Elevated d-dimer history of coronary artery disease history of chronic obstructive pulmonary disease Gastroesophageal reflux disease history of bipolar, schizoaffective disorder and schizophrenia History of nicotine dependence Severe protein calorie malnutrition with a BMI of 19.1 Full code Plan: Recommend to continue with current medications and follow along closely with multiple medical consultations. Prognosis remains guarded with multiple complex medical issues noted. Patient is status post peg and trach placement and c ontinues on mechanical vent. Sedated now with propofol. tube feedings being resumed and lovenox resumed. No bleeding noted at the trach site. Recommend continue with current medications and patient has been maintained on IV antibiotics with infectious disease following.. Patient will continue on merrem . Chest x-ray reviewed as mentioned above with some slight improvement. Recommend repeat labs in the morning along with chest xray. Nephrology following as well. Again due to multiple complex medical issues prognosis is quite guarded. Objective - Vital Signs Vital signs: Vital Signs Temp 94.8 F L 05/28/21 08:00 Pulse 40 L 05/28/21 09:00 Resp 30 H 05/28/21 09:00 BP 130/69 05/28/21 07:00 Pulse Ox 100 05/28/21 09:00 Intake & Output 05/27/21 05/28/21 05/28/21 18:59 06:59 18:59 Intake Total 2150.791 2208.35 317 Output Total 1285 1010 300 Balance 306.310 5478.35 17 Weight 74.7 kg Intake: IV 1316 1676 273 0.9 NaCl- 280 240 20 Ceftazidime/Avibactam 2.5 100 gm In Sodium Chloride 0. 9% 100 ml @ 50 mls/hr IVPB Q8HR [facility] Rx#: [id number] Dextrose 5% in Water 1, 900 900 150 000 ml @ 75 mls/hr IV . [id number] [facility] Rx#:[id number] Potassium Chloride IVPB 200 Valproate Sodium 250 mg 100 200 100 In Sodium Chloride 0.9% 100 ml @ 100 mls/hr IVPB Q6HR@0300,0900,1500,2100 [facility] Rx#:[id number] pressure bag 36 36 3 Intake, IV Titration 634.791 178.35 Amount DOPamine DRIP 800 mg In 63.219 Water For Injection 1 250ml.bag @ 5 MCG/KG/MIN 6.375 mls/hr IV .Q24H [facility] Rx#:[id number] Norepinephrine 4 mg In 121.588 78.35 Sodium Chloride 0.9% 250 ml @ 0.05 MCG/KG/MIN 13. 697 mls/hr IV .[id number] [facility] Rx#:[id number] Piperacillin-Tazobactam 3 100 .375 gm In Sodium Chloride 0.9% 100 ml @ 25 mls/hr IVPB Q8HR [facility] Rx# :[id number] Potassium Chloride 10 meq 100 In Water For Injection 1 100ml.bag @ 100 mls/hr IVPB Q1HR [facility] Rx#: [id number] propofoL 1,000 mg In 249.984 100 Empty Bag 1 bag @ Titrate IV .Q0M [facility] Rx#: [id number] Tube Feeding 110 264 44 Other 90 90 Output: Urine 1285 1010 300 Other: Voiding Method Indwelling Catheter Indwelling Catheter ABP, PAP, CO, CI - Last Documented Arterial Blood Pressure 120/50 - Labs CBC & Chem 7: 05/28/21 04:15 05/28/21 04:15 Labs: Abnormal Lab Results - Last 24 Hours (Table) 05/27/21 05/27/21 05/28/21 Range/Units 17:38 23:41 01:38 WBC (3.8-10.6) k/uL RBC (4.30-5.90) m/uL Hgb (13.0-17.5) gm/dL Hct (39.0-53.0) % Neutrophils # (1.3-7.7) k/uL Lymphocytes # (1.0-4.8) k/uL D-Dimer (<0.60) mg/L FEU ABG pCO2 (35-45) mmHg ABG pO2 (83-108) mmHg ABG HCO3 (21-25) mmol/L ABG Total CO2 (19-24) mmol/L ABG O2 Saturation (94-97) % Chloride (98-107) mmol/L Glucose (74-99) mg/dL POC Glucose (mg/dL) 110 H 105 H 116 H (75-99) mg/dL Calcium (8.4-10.2) mg/dL AST (17-59) U/L C-Reactive Protein (<1.0) mg/dL Total Protein (6.3-8.2) g/dL Albumin (3.5-5.0) g/dL 05/28/21 05/28/21 05/28/21 Range/Units 04:15 04:15 04:15 WBC 16.1 H (3.8-10.6) k/uL RBC 3.06 L (4.30-5.90) m/uL Hgb 9.7 L (13.0-17.5) gm/dL Hct 29.7 L (39.0-53.0) % Neutrophils # 15.1 H (1.3-7.7) k/uL Lymphocytes # 0.3 L (1.0-4.8) k/uL D-Dimer 1.11 H (<0.60) mg/L FEU ABG pCO2 (35-45) mmHg ABG pO2 (83-108) mmHg ABG HCO3 (21-25) mmol/L ABG Total CO2 (19-24) mmol/L ABG O2 Saturation (94-97) % Chloride 111 H (98-107) mmol/L Glucose 138 H (74-99) mg/dL POC Glucose (mg/dL) (75-99) mg/dL Calcium 7.5 L (8.4-10.2) mg/dL AST 13 L (17-59) U/L C-Reactive Protein 15.8 H (<1.0) mg/dL Total Protein 4.5 L (6.3-8.2) g/dL Albumin 1.9 L (3.5-5.0) g/dL 05/28/21 05/28/21 Range/Units 05:32 06:00 WBC (3.8-10.6) k/uL RBC (4.30-5.90) m/uL Hgb (13.0-17.5) gm/dL Hct (39.0-53.0) % Neutrophils # (1.3-7.7) k/uL Lymphocytes # (1.0-4.8) k/uL D-Dimer (<0.60) mg/L FEU ABG pCO2 49 H (35-45) mmHg ABG pO2 130 H (83-108) mmHg ABG HCO3 27 H (21-25) mmol/L ABG Total CO2 29 H (19-24) mmol/L ABG O2 Saturation 99.5 H (94-97) % Chloride (98-107) mmol/L Glucose (74-99) mg/dL POC Glucose (mg/dL) 119 H (75-99) mg/dL Calcium (8.4-10.2) mg/dL AST (17-59) U/L C-Reactive Protein (<1.0) mg/dL Total Protein (6.3-8.2) g/dL Albumin (3.5-5.0) g/dL Microbiology - Last 24 Hours (Table) 05/25/21 04:54 Gram Stain - Final Sputum Sputum Culture - Final Escherichia coli
[2021-05-29] MEDS: NOREPINEPHRINE 4 MG in SODIUM CHLORIDE 0.9% 250 ML IV SCH ×2 (03:44→14:46)
[2021-05-29] MEDS: DEXTROSE 5% IN WATER 1,000 ML IV SCH ×2 (04:00→16:24)
[2021-05-29 04:12] LABS: Basophils % (A) 0 %; Eosinophils % (A) 0 %; HCT 31.9 % (39.0-53.0); HGB 10.2 gm/dL (13.0-17.5); Hypochromasia Slight; Lymphocytes # (A) 0.3 k/uL (1.0-4.8); Lymphocytes % (A) 2 %; MCH 31.6 pg (25.0-35.0); MCHC 31.9 g/dL (31.0-37.0); MCV 98.8 fL (80.0-100.0); Macrocytosis Slight; Monocytes # (A) 0.4 k/uL (0-1.0); Monocytes % (A) 2 %; Neutrophils # (A) 14.9 k/uL (1.3-7.7); Neutrophils % (A) 96 %; Platelet Count 486 k/uL (150-450); RBC 3.23 m/uL (4.30-5.90); RDW 15.5 % (11.5-15.5); WBC 15.6 k/uL (3.8-10.6)
[2021-05-29 04:36] LABS: Albumin 2.1 g/dL (3.5-5.0); Calcium 8.3 mg/dL (8.4-10.2); Potassium 4.3 mmol/L (3.5-5.1); Total Bilirubin 0.2 mg/dL (0.2-1.3); Total Protein 4.9 g/dL (6.3-8.2)
[2021-05-29 04:54] LABS: C Reactive Protein 12.5 mg/dL (<1.0)
[2021-05-29 05:52] LABS: Glucose,Whole Blood 133 mg/dL (75-99)
[2021-05-29] MEDS: MEROPENEM 2 GM in SODIUM CHLORIDE 0.9% 100 ML IVPB SCH ×3 (05:52→21:18)
[2021-05-29 06:03] LABS: ABG Base Excess 1.5 mmol/L; ABG HCO3 28 mmol/L (21-25); ABG Oxygen Saturation 97.4 % (94-97); ABG PCO2 55 mmHg (35-45); ABG PH 7.31 (7.35-7.45); ABG PO2 94 mmHg (83-108); ABG TCO2 29 mmol/L (19-24); Allen Test Performed? Yes
[2021-05-29] MEDS: ALBUTEROL HFA INHALER INHALATION SCH ×4 (07:51→21:39)
--- NOTE | 2021-05-29 07:58 | P.PN ---
Subjective Progress Note Date: 05/29/21 Principal diagnosis: Sinus bradycardia This is a 70-year-old female patient with coronary artery disease as well as multiple comorbid conditions was admitted to the intensive care unit with change in mental status and we consulted to see the patient mainly because of sinus bradycardia. Subsequently the patient was started on dopamine with improvement in the heart rate. Also the patient required intubation and mechanical ventilation because she developed acute hypoxic respiratory failure secondary to COVID-19 pneumonia. The patient was evaluated today. He is off dopamine. He seems to be overall hemodynamically stable with intermittent episodes of slow heart rate in the lower 40s. The pressure has been stable as well. He is not on any AV sherri mikaela agents. Objective - Vital Signs Vital signs: Vital Signs Temp 98.6 F 05/29/21 04:00 Pulse 92 05/29/21 07:00 Resp 30 H 05/29/21 07:00 BP 110/72 05/29/21 07:00 Pulse Ox 97 05/29/21 07:00 Intake & Output 05/28/21 05/29/21 05/29/21 18:59 06:59 18:59 Intake Total 6702.909 1345.830 98 Output Total 1165 1250 65 Balance 9.735 769.830 33 Weight 74.7 kg 82.4 kg Intake: IV 723 1244.6 98 0.9 NaCl- 20 220 20 Dextrose 5% in Water 1, 600 825 75 000 ml @ 75 mls/hr IV . [id number] [facility] Rx#:[id number] Meropenem 166.6 Valproate Sodium 250 mg 100 In Sodium Chloride 0.9% 100 ml @ 100 mls/hr IVPB Q6HR@0300,0900,1500,2100 [facility] Rx#:[id number] pressure bag 3 33 3 Intake, IV Titration 385.735 443.230 Amount Cisatracurium 200 mg In 83.664 Sodium Chloride 0.9% 180 ml @ 2 MCG/KG/MIN 8.964 mls/hr IV .[id number] [facility] Rx #:[id number] Norepinephrine 4 mg In 185.735 259.566 Sodium Chloride 0.9% 250 ml @ 0.05 MCG/KG/MIN 13. 697 mls/hr IV .[id number] [facility] Rx#:[id number] propofoL 1,000 mg In 200.000 100.000 Empty Bag 1 bag @ Titrate IV .Q0M [facility] Rx#: [id number] Tube Feeding 66 242 Other 90 Output: Urine 1165 1250 65 Other: Voiding Method Indwelling Catheter Indwelling Catheter # Voids 2 ABP, PAP, CO, CI - Last Documented Arterial Blood Pressure 113/61 - Constitutional General appearance: Present: no acute distress - Labs CBC & Chem 7: 05/29/21 04:00 05/29/21 04:00 Labs: Abnormal Lab Results - Last 24 Hours (Table) 05/28/21 05/28/21 05/28/21 Range/Units 11:47 16:22 17:40 WBC (3.8-10.6) k/uL RBC (4.30-5.90) m/uL Hgb (13.0-17.5) gm/dL Hct (39.0-53.0) % Plt Count (150-450) k/uL Neutrophils # (1.3-7.7) k/uL Lymphocytes # (1.0-4.8) k/uL D-Dimer (<0.60) mg/L FEU ABG pH 7.29 L (7.35-7.45) ABG pCO2 57 H (35-45) mmHg ABG pO2 82 L (83-108) mmHg ABG HCO3 27 H (21-25) mmol/L ABG Total CO2 29 H (19-24) mmol/L ABG O2 Saturation (94-97) % Chloride (98-107) mmol/L Glucose (74-99) mg/dL POC Glucose (mg/dL) 120 H 127 H (75-99) mg/dL Calcium (8.4-10.2) mg/dL AST (17-59) U/L C-Reactive Protein (<1.0) mg/dL Total Protein (6.3-8.2) g/dL Albumin (3.5-5.0) g/dL 05/29/21 05/29/21 05/29/21 Range/Units 00:01 04:00 04:00 WBC 15.6 H (3.8-10.6) k/uL RBC 3.23 L (4.30-5.90) m/uL Hgb 10.2 L (13.0-17.5) gm/dL Hct 31.9 L (39.0-53.0) % Plt Count 486 H (150-450) k/uL Neutrophils # 14.9 H (1.3-7.7) k/uL Lymphocytes # 0.3 L (1.0-4.8) k/uL D-Dimer 1.13 H (<0.60) mg/L FEU ABG pH (7.35-7.45) ABG pCO2 (35-45) mmHg ABG pO2 (83-108) mmHg ABG HCO3 (21-25) mmol/L ABG Total CO2 (19-24) mmol/L ABG O2 Saturation (94-97) % Chloride (98-107) mmol/L Glucose (74-99) mg/dL POC Glucose (mg/dL) 139 H (75-99) mg/dL Calcium (8.4-10.2) mg/dL AST (17-59) U/L C-Reactive Protein (<1.0) mg/dL Total Protein (6.3-8.2) g/dL Albumin (3.5-5.0) g/dL 05/29/21 05/29/21 05/29/21 Range/Units 04:00 05:51 06:00 WBC (3.8-10.6) k/uL RBC (4.30-5.90) m/uL Hgb (13.0-17.5) gm/dL Hct (39.0-53.0) % Plt Count (150-450) k/uL Neutrophils # (1.3-7.7) k/uL Lymphocytes # (1.0-4.8) k/uL D-Dimer (<0.60) mg/L FEU ABG pH 7.31 L (7.35-7.45) ABG pCO2 55 H (35-45) mmHg ABG pO2 (83-108) mmHg ABG HCO3 28 H (21-25) mmol/L ABG Total CO2 29 H (19-24) mmol/L ABG O2 Saturation 97.4 H (94-97) % Chloride 112 H (98-107) mmol/L Glucose 118 H (74-99) mg/dL POC Glucose (mg/dL) 133 H (75-99) mg/dL Calcium 8.3 L (8.4-10.2) mg/dL AST 12 L (17-59) U/L C-Reactive Protein 12.5 H (<1.0) mg/dL Total Protein 4.9 L (6.3-8.2) g/dL Albumin 2.1 L (3.5-5.0) g/dL Assessment and Plan Assessment: Assessment #1 acute hypoxic respiratory failure #2 COVID-19 pneumonia #3 change in mental status #4 sinus bradycardia of unknown etiology #5 coronary artery disease #6 multiple comorbid conditions Plan #1 the patient off dopamine #2 address the thyroid abnormalities by the primary care team #3 the echo was done and showed normal left ventricle systolic function #4 avoid any AV sherri mikaela agents
[2021-05-29] MEDS: MIDODRINE 5 MG TAB PO SCH ×3 (08:25→18:01)
[2021-05-29] MEDS: ENOXAPARIN 40 MG/0.4 ML SYRINGE SQ SCH (08:26)
[2021-05-29] MEDS: FERROUS SULFATE 325 MG TAB PO SCH (08:27)
[2021-05-29] MEDS: FOLIC ACID 1 MG TAB PO SCH (08:27)
[2021-05-29] MEDS: OLANZapine ODT 5 MG TAB PO SCH (08:27)
[2021-05-29] MEDS: PANTOPRAZOLE 40 MG/10 ML VIAL IVP SCH (08:28)
[2021-05-29] MEDS: CISATRACURIUM 200 MG in SODIUM CHLORIDE 0.9% 180 ML IV SCH ×2 (09:04→23:40)
[2021-05-29] MEDS: NYSTATIN 100,000 UNIT/ML SUSP 500,000 UNIT/5 ML CUP PO SCH ×4 (09:05→21:19)
--- NOTE | 2021-05-29 09:39 | XR ---
EXAMINATION TYPE: XR chest 1V portable DATE OF EXAM: 05/29/2021 Comparison: 05/28/2021 Clinical History: 70-year-old male covid Findings: Tracheostomy cannula is in place. Heart normal size. Hyperinflation. Patchy peripheral and basilar op acities persist. Similar to slightly worsened from 05/28/2021. Right CVC tip at the caval atrial junct ion. Impression: COPD with continued peripheral and basilar COVID infiltrates, similar to slightly worsened.
--- NOTE | 2021-05-29 11:27 | P.PN ---
Subjective Principal diagnosis: Patient is seen for follow-up for acute kidney injury and hypernatremia. Renal function has improved with serum creatinine down to 1.14 mg/dL. to date is at 1.23. Patient is maintained on free water down the feeding tube at 30 mL every 4 hours. He is also maintained on D5W at 75 mL an hour. Patient is status post trach and PEG. Patient remains on the vent FiO2 is at 50%. Objective - Vital Signs Vital signs: Vital Signs Temp 97.9 F 05/29/21 08:00 Pulse 99 05/29/21 09:00 Resp 30 H 05/29/21 09:00 BP 96/64 05/29/21 08:30 Pulse Ox 97 05/29/21 09:00 Intake & Output 05/28/21 05/29/21 05/29/21 18:59 06:59 18:59 Intake Total 4323.152 2248.830 695.628 Output Total 1165 1250 130 Balance 9.735 769.830 565.628 Weight 74.7 kg 82.4 kg Intake: IV 723 1244.6 294 0.9 NaCl- 20 220 60 Dextrose 5% in Water 1, 600 825 225 000 ml @ 75 mls/hr IV . [id number] [facility] Rx#:[id number] Meropenem 166.6 Valproate Sodium 250 mg 100 In Sodium Chloride 0.9% 100 ml @ 100 mls/hr IVPB Q6HR@0300,0900,1500,2100 [facility] Rx#:[id number] pressure bag 3 33 9 Intake, IV Titration 385.735 443.230 327.628 Amount Cisatracurium 200 mg In 83.664 81.983 Sodium Chloride 0.9% 180 ml @ 2 MCG/KG/MIN 8.964 mls/hr IV .[id number] [facility] Rx #:[id number] Norepinephrine 4 mg In 185.735 259.566 145.645 Sodium Chloride 0.9% 250 ml @ 0.05 MCG/KG/MIN 13. 697 mls/hr IV .[id number] [facility] Rx#:[id number] propofoL 1,000 mg In 200.000 100.000 100 Empty Bag 1 bag @ Titrate IV .Q0M [facility] Rx#: [id number] Tube Feeding 66 242 44 Other 90 30 Output: Urine 1165 1250 130 Other: Voiding Method Indwelling Catheter Indwelling Catheter # Voids 2 ABP, PAP, CO, CI - Last Documented Arterial Blood Pressure 71/44 - Exam Patient is on the vent. Examination lower extremities shows no significant edema. Abdomen is soft. Lungs and heart are not examined due to Covid isolation - Labs CBC & Chem 7: 05/29/21 04:00 05/29/21 04:00 Labs: Abnormal Lab Results - Last 24 Hours (Table) 05/28/21 05/28/21 05/28/21 Range/Units 11:47 16:22 17:40 WBC (3.8-10.6) k/uL RBC (4.30-5.90) m/uL Hgb (13.0-17.5) gm/dL Hct (39.0-53.0) % Plt Count (150-450) k/uL Neutrophils # (1.3-7.7) k/uL Lymphocytes # (1.0-4.8) k/uL D-Dimer (<0.60) mg/L FEU ABG pH 7.29 L (7.35-7.45) ABG pCO2 57 H (35-45) mmHg ABG pO2 82 L (83-108) mmHg ABG HCO3 27 H (21-25) mmol/L ABG Total CO2 29 H (19-24) mmol/L ABG O2 Saturation (94-97) % Chloride (98-107) mmol/L Glucose (74-99) mg/dL POC Glucose (mg/dL) 120 H 127 H (75-99) mg/dL Calcium (8.4-10.2) mg/dL AST (17-59) U/L C-Reactive Protein (<1.0) mg/dL Total Protein (6.3-8.2) g/dL Albumin (3.5-5.0) g/dL 05/29/21 05/29/21 05/29/21 Range/Units 00:01 04:00 04:00 WBC 15.6 H (3.8-10.6) k/uL RBC 3.23 L (4.30-5.90) m/uL Hgb 10.2 L (13.0-17.5) gm/dL Hct 31.9 L (39.0-53.0) % Plt Count 486 H (150-450) k/uL Neutrophils # 14.9 H (1.3-7.7) k/uL Lymphocytes # 0.3 L (1.0-4.8) k/uL D-Dimer 1.13 H (<0.60) mg/L FEU ABG pH (7.35-7.45) ABG pCO2 (35-45) mmHg ABG pO2 (83-108) mmHg ABG HCO3 (21-25) mmol/L ABG Total CO2 (19-24) mmol/L ABG O2 Saturation (94-97) % Chloride (98-107) mmol/L Glucose (74-99) mg/dL POC Glucose (mg/dL) 139 H (75-99) mg/dL Calcium (8.4-10.2) mg/dL AST (17-59) U/L C-Reactive Protein (<1.0) mg/dL Total Protein (6.3-8.2) g/dL Albumin (3.5-5.0) g/dL 05/29/21 05/29/21 05/29/21 Range/Units 04:00 05:51 06:00 WBC (3.8-10.6) k/uL RBC (4.30-5.90) m/uL Hgb (13.0-17.5) gm/dL Hct (39.0-53.0) % Plt Count (150-450) k/uL Neutrophils # (1.3-7.7) k/uL Lymphocytes # (1.0-4.8) k/uL D-Dimer (<0.60) mg/L FEU ABG pH 7.31 L (7.35-7.45) ABG pCO2 55 H (35-45) mmHg ABG pO2 (83-108) mmHg ABG HCO3 28 H (21-25) mmol/L ABG Total CO2 29 H (19-24) mmol/L ABG O2 Saturation 97.4 H (94-97) % Chloride 112 H (98-107) mmol/L Glucose 118 H (74-99) mg/dL POC Glucose (mg/dL) 133 H (75-99) mg/dL Calcium 8.3 L (8.4-10.2) mg/dL AST 12 L (17-59) U/L C-Reactive Protein 12.5 H (<1.0) mg/dL Total Protein 4.9 L (6.3-8.2) g/dL Albumin 2.1 L (3.5-5.0) g/dL Assessment and Plan Assessment: #1 acute kidney injury secondary to hemodynamic ATN. Peak creatinine was 2.07. Improved #2 chronic kidney disease stage III A secondary to nephrosclerosis with a baseline creatinine of 1.2-1.4 MG per DL. #3 COVID-19 pneumonia, patient remains on the vent he is status post trach and PEG #4 hypernatremia secondary to volume depletion, improving currently on D5W #5 hyperkalemia secondary to acute kidney injury, resolved Plan: 1. Continue D5W at 75 mL an hour 2. Replace potassium 3. Repeat labs in a.m. 4. Increase free water down the feeding tube to 60 mL every 4 hours.
--- NOTE | 2021-05-29 11:33 | P.PN ---
Subjective Progress Note Date: 05/29/21 Principal diagnosis: Acute COVID-19 pneumonia This is a 70-year-old male patient, brought into the emergency department by a caregiver. The patient is unable to volunteer any history. He has issues with dementia and mental health. In fact he is unable to communicate. He is currently in the hospital for COVID pneumonia. The patient initially went to [place] where he was seen in the [facility] for COVID 19 infection. He was discharged home. This is approximately 4 days ago. Following that, the caregiver sent the patient to our hospital as the patient's condition was getting worse and apparently continued to have worsening mentation. The patient was unable to communicate time of his admission. He was mumbling and unable to make full sentences or other words. He was restless in bed. At times agitated. At times screaming. He was quite uncooperative during the evaluation. No history of any head trauma. The patient apparently had a fall and he sustained a trauma to his neck area following the fall. This occurred at home in a bathtub. In the emergency department, the patient was found to be hypoxic with a pulse ox of 80% and the patient required oxygen. The patient is currently on oxygen at 10 L high flow. Initial CAT scan of the brain and the CAT scan of the C-spine showed no acute process. The patient was given 10 mg of Decadron in the emergency department regarding his COVID 19 pneumonia. Chest x-ray showed bilateral lower lobe airspace disease. Note that the pulmonary infiltrates were worse on the right compared to the leftand the infiltrate was rather asymmetric, which obviously raises concerns for an underlying pneumonia, aspiration and the patient was given a dose of Rocephin and Zithromax in the emergency department. His white cell count is at 6.4 with a hemoglobin of 12 and a platelet count of 130. Sodium was 155 this morning with a potassium level of 6.1, BUN is at 50 with a creatinine of 1.5, LFTs are normal, lactic acid level was at 1.9, pro calcitonin level is at 0.16, d-dimer is at 0.8 and the rest of the coagulation profile is within normal limits. The patient is currently on IV Decadron. On 05/19/2021 patient seen in follow-up in the intensive care unit, overnight his condition continued to deteriorate, and early this morning at 4:00 on 05/19/2021 patient had rapid response team called to the bedside for concern of worsening shortness of breath, and worsening hypoxia, patient was confused and in respiratory distress, he is not answering any questions, on 10 L of oxygen his pulse ox was 94%, however his mental status was significantly altered, patient was transferred to the intensive care unit for high likelihood of intubation, this morning she was intubated and placed on mechanical ventilator, with assist-control mode of ventilation with a rate of 30, tidal on was 300, FiO2 100% and PEEP of 5. Early in the morning his blood gases showed pO2 of 82, pCO2 of 80, and pH of 7.18, this was done and FiO2 of 70%. Post intubation blood gas showed a pO2 of 81, pCO2 of 63, and pH of 7.24, this was done and FiO2 of 50%. Patient was hypotensive following intubation, he was given 2 L of fluid boluses, and his maintenance IV fluid is D5W at 50 ML per hour which will be switched to normal saline, he is on norepinephrine at 0.14 mics per kilo per minute, Diprivan infusion at 50 mics per kilo per minute. He remains on prophylactic Lovenox 40 mg daily, and Decadron 6 mg daily. He remains on his home medications including Lipitor, Plavix, Depakote, iron supplementation, his antipsychotics, midodrine which patient have not been able to take related to his altered mental status. Patient was also suspected to be aspirating, and he was placed on Zosyn for empiric antibiotic coverage. Today's labs have been reviewed, his white blood cell count is 7.1, hemoglobin of 12.7, sodium is 153 and patient has been on D5W at a rate of 100 ML per hour, his oral intake has been extremely poor, potassium is 5.8, chloride is 124, BUN of 69, creatinine is 1.97. Patient's extremely cachectic, and frail. This morning patient had to be intubated and placed on mechanical ventilator, we will initiate tube feedings today, consult registered dietitian for tube feeding recommendation, patient will be fluid bolused, and stabilized hemodynamically. On 05/20/2021 patient seen in follow-up in intensive care unit. Yesterday he was intubated and placed on mechanical ventilator in view of worsening hypoxia and dyspnea. Today he remains sedated, and intubated on assist control mode of ventilation with a rate of 30, tidal volume is 325, FiO2 of 50% and PEEP of 10, this morning blood gases shows pO2 of 95, pCO2 of 70, and pH of 7.18. This was done on the above mentioned ventilator settings, today's chest x-ray shows some improvement of bibasilar infiltrates more so on the right, and possibility of developing small right pleural effusion. Patient is currently on a vasopressor support in the form of norepinephrine is 0.38 mics per kilo per minute which is about 24.7 mics per minute, he is on Diprivan at 50 mics per kilo per minute, and overnight he had episode of hypoglycemia and patient was placed on 10% dextrose at a rate of 100 ML per hour, patient was extremely dehydrated prior to his intubation, his had very poor oral intake. He was given 2 L fluid bolus yesterday, however still requiring vasopressor support, and case was discussed with nephrology who agreed that patient is still extremely intravascular volume depleted, and is recommending another 1 or 2 L fluid bolus today. Today's labs have been reviewed and his white blood cell count is 14.6, hemoglobin is 12.1, platelet count is 223, sodium is 148, potassium is 4.7, chloride is 121, CO2 is 23, BUN of 49 creatinine is 1.93, his LDH is 560, within normal limits, and CRP is 7.2, improving, his last proBNP from a couple days ago was 5790 however patient seems to be extremely dehydrated. His pro calcitonin levels were negative 2 at 0.16, and 0.12 however his chest x-ray findings suggest possibility of aspiration pneumonia, and patient was placed on Zosyn for possibility of aspiration. Sputum culture has been sent and pending, preliminary Gram stain showing few PMNs, rare budding yeast, final culture is pending, blood cultures are negative thus far. On 05/21/2021 patient seen in follow-up in intensive care unit, patient remains sedated, and intubated on assist control mode of ventilation with a rate of 36, tidal volume was 375, FiO2 of 40% and 5. The blood count shows pO2 of 71, pCO2 of 41, pH is 7.40, today's chest x-ray has been reviewed showing bilateral airspace disease with interstitial changes and prominent lung volumes indicative of underlying COPD. Vital signs have been stable overnight, patient is on norepinephrine 0.1 mics per kilo per minute, Diprivan is present, and D5W at 100 ML per hour, and plan an 70-20 ML per hour, he is on tube feedings with Nepro at 20 ML per hour and 10 of water flushes, he is in sinus mechanism with a rate of 82 BPM, patient has had fevers overnight with a temp of 100.5F. He is covered with Zosyn. His blood cultures have been negative, his sputum culture showed yeast species, culture is pending. Today's labs have been reviewed and his white blood cell count is 8.5, hemoglobin is 10.4, his sodium is improved and is down to 149, in follow-up sodium level came back at 151, patient remains on free water at 100 ML per hour, nephrology is following. Potassium is 4.0, chloride is 121, BUN is 40, creatinine is improved and is down to 1.58, his cortisol level 7, and this was on IV Decadron 6 mg daily, and patient remains on prophylactic dose Lovenox, Zosyn, yesterday he received an additional liter bolus in IV fluids. His urine output is in the order of 100-125 ML per hour. Overall his oxygenation and ventilation have significantly improved, and patient is maintaining stable O2 saturations on FiO2 of 40% and PEEP of 5, his peak Pressure is only 18, his plateau is 13. On 05/22/2021 patient seen in follow-up in intensive care unit, he remains intubated on mechanical ventilator, currently assist control mode of ventilation with a rate at 36, tidal 375, FiO2 40% and PEEP of 5, this was blood gas shows pO2 of 112, pCO2 40, pH of 7.40 and this was done and the above-mentioned vent settings, today's chest x-ray has been reviewed showing chronic emphysematous pulmonary fibrotic changes with moderate bilateral pleural effusions and susan ateral multifocal increased opacities consistent with COVID-19 infection. No significant change compared the day before. Patient's sedation has been placed on hold this morning. Patient is waking up, becoming slightly restless, however he is not following commands yet. He is on D5W at rate of 100 ML per hour, norepinephrine drip has been weaned off, patient continues on hydrocortisone 100 mg every 8 hours for his serum cortisol level of 7, his TSH level was 0.923, within normal limits. He's tolerating tube feedings he is receiving Nepro at 27 per hour with a goal of 27 standard water flushes, vital signs have been stable, no fever overnight. He did have a low-grade fever early this morning with a temp of 99.7F. His blood cultures have been negative, his sputum culture showed Romelia species. Patient remains on Zosyn for antibiotic coverage, on prophylactic Lovenox 40 mg daily. The rest of patient's labs have been reviewed, his white blood cell count is 6.0, hemoglobin of 9.6, sodium is improving and is down to 148, potassium is 4.0, chloride is 122, BUN is 26, creatinine is improving and is down to 1.55. On 05/23/2021 patient seen in follow-up in the intensive care unit. He remains intubated, on mechanical ventilator, currently on assist control mode of ventilation with a rate of 36, tidal volume 375, FiO2 of 40% and PEEP of 5. This morning's blood gas shows pO2 of 136, pCO2 of 40, and pH of 7.42, this was done and above-mentioned vent settings. Today's chest x-ray has been reviewed showing chronic emphysematous and pulmonary fibrotic changes with small bilate ral pleural effusions and bilateral multifocal opacities, without significant change compared to the prior study. Today's labs have been reviewed, white blood cell count is 5.5, hemoglobin is 8.9, sodium is 147, improving potassium is 3.5, chloride is 118, CO2 is 27, BUN 37, creatinine is 1.44. Patient is receiving D5W 1 50 ML per hour, nephrology is managing, he remains on hydrocortisone 100 mg every 8 hours, his been off vasopressor support for 48 hours. He has had no fever or chills. He remains on Zosyn. Sputum culture showed Romelia species, blood cultures have been negative. Neurologically patient has been off sedation for the past 24 hours. However patient is not following commands, although he is awake, at times he becomes restless, his been getting intermittent doses of when necessary on as-needed basis. We understand patient has underlying history of dementia however his baseline mental status is not known to us, his level of consciousness is certainly improved, however patient has not been able to follow any instructions. And for that reason patient has not been able to tolerate weaning trials, last night he had to be placed on assist-control mode of ventilation because he was extremely anxious, she did tolerate pressure support of 14 and IMV of 10 for a couple of hours, however became very agitated, and was placed back on assist control mode of ventilation. he is tolerating tube feedings. On 05/27/2021 patient seen in follow-up in the intensive care unit, patient remains intubated, and sedated on assist control mode of ventilation with a rate of 30, tidal 350, FiO2 of 50% and PEEP of 5, this morning's blood gas shows pO2 of 89, pCO2 45, pH is 7.3. Today's chest x-ray showing stable portable chest, bibasilar opacities, no significant change from prior exam, patient remains on Diprivan at 35 mics per kilo per minute, dopamine remains at 5 mics per kilo per minute, norepinephrine is at 1.5 mics per minute, D5W remains a 75 ML per hour, and tube feedings are currently on hold for recent trach and PEG placement by Dr. Mazariegos yesterday on 05/26/2021. He's had no acute events overnight. Today's labs have been reviewed, white blood cell count has increased and is currently 24.8, hemoglobin is 10.8, platelet count is 366, sodium is 140, potas sium is 3.2, chloride is 112, CO2 is 26, BUN is 18 creatinine is 1.14. Sputum culture from 2 days ago is showing gram-negative bacilli, final culture is still pending, patient currently remains on Zosyn, blood cultures are negative On 05/28/2021 patient seen in follow-up in intensive care unit, he remains trached to the ventilator, on assist control mode of ventilation with a rate of 30, tidal vital 350, FiO2 50% and PEEP of 5. He is sedated with Diprivan at 30 mics per kilo per minute, he is on 0.9 normal saline at a 20 ML per hour, D5W at 75 ML per hour, he is requiring small doses of norepinephrine and 5 mics per minute. Patient has been intermittently bradycardic with a heart rate in the low 40s, currently is in sinus mechanism with a rate of 60, his been experiencing intermittent hypotension, episodes of tachycardia. He is hypothermic this morning with a temp of 94.8F, he is on the warming blanket. Patient was found to have ESBL E. coli in his sputum culture, current antibiotic coverage is Avycaz, ID service is following. A new set of blood cultures will be sent, we'll send another cortisone level. Patient currently remains on hydrocortisone at 50 mg twice daily, however he may be experiencing worsening sepsis and septic shock. Today's labs have been reviewed, his white blood cell count is 16.1, hemoglobin is 9.7, d-dimer is 1.11, sodium is 140, potassium is 3.8, chloride is 111, CO2 is 26, BUN is 16 creatinine is 1.1 his LDH is 513, CRP is 15.8. His chest x-ray shows chronic emphysematous and pulmonary fibrotic changes with small right greater than left bilateral pleural effusions and bilateral mid to lower lung infiltrates. On 05/29/2021 patient seen in follow-up in intensive care unit, patient is trached to the ventilator, currently on assist control with a rate of 30, tidal vital 350, FiO2 40%, PEEP of 5, this. Blood gas shows pO2 of 94, pCO2 55, and pH of 7.31. Today's chest x-ray shows COPD with peripheral and basilar COVID infiltrates, similar to prior, slightly worsened. Patient has been afebrile overnight, no hyperthermia, he is hypotensive, requiring levo fed at 10 mics per minute. Yesterday we switched his antibiotic coverage from Avycaz to Meropenem in view of ESBL E. coli in his sputum. 2 more blood cultures have been sent, p ending at this time. Cortisol level yesterday was 18, hydrocortisone level was increased to 50 mg 3 times a day. Urine output is any order of 30-60 ML per hour. Today's labs have been reviewed, blood blood cell count is improving down to 15.6, hemoglobin is 10.2, sodium is 140, potassium is 4.3, chloride is 112, CO2 is 26, B1 is 16, creatinine is 1.23. LDH is 426 within normal limits, CRP is 12.5. Objective - Vital Signs Vital signs: Vital Signs Temp 97.9 F 05/29/21 08:00 Pulse 99 05/29/21 09:00 Resp 30 H 05/29/21 09:00 BP 96/64 05/29/21 08:30 Pulse Ox 97 05/29/21 09:00 Intake & Output 05/28/21 05/29/21 05/29/21 18:59 06:59 18:59 Intake Total 6354.636 4596.830 695.628 Output Total 1165 1250 130 Balance 9.735 769.830 565.628 Weight 74.7 kg 82.4 kg Intake: IV 723 1244.6 294 0.9 NaCl- 20 220 60 Dextrose 5% in Water 1, 600 825 225 000 ml @ 75 mls/hr IV . [id number] [facility] Rx#:[id number] Meropenem 166.6 Valproate Sodium 250 mg 100 In Sodium Chloride 0.9% 100 ml @ 100 mls/hr IVPB Q6HR@0300,0900,1500,2100 [facility] Rx#:[id number] pressure bag 3 33 9 Intake, IV Titration 385.735 443.230 327.628 Amount Cisatracurium 200 mg In 83.664 81.983 Sodium Chloride 0.9% 180 ml @ 2 MCG/KG/MIN 8.964 mls/hr IV .[id number] [facility] Rx #:[id number] Norepinephrine 4 mg In 185.735 259.566 145.645 Sodium Chloride 0.9% 250 ml @ 0.05 MCG/KG/MIN 13. 697 mls/hr IV .[id number] [facility] Rx#:[id number] propofoL 1,000 mg In 200.000 100.000 100 Empty Bag 1 bag @ Titrate IV .Q0M [facility] Rx#: [id number] Tube Feeding 66 242 44 Other 90 30 Output: Urine 1165 1250 130 Other: Voiding Method Indwelling Catheter Indwelling Catheter # Voids 2 ABP, PAP, CO, CI - Last Documented Arterial Blood Pressure 71/44 - Exam GENERAL EXAM: Extremely frail and cachectic 70-year-old white male, trached to the ventilator on assist control mode of ventilation with a rate of 30, tidal on his 350, FiO2 40% and PEEP of 5, comfortable in no apparent distress. HEAD: Normocephalic/atraumatic. EYES: Normal reaction of pupils, equal size. Conjunctiva pink, sclera white. NOSE: Clear with pink turbinates. THROAT: No erythema or exudates. NECK: No masses, no JVD, no thyroid enlargement, no adenopathy. Midline tracheostomy in place, clean dry and intact, and patient is connected to the ventilator with assist control mode of ventilation CHEST: No chest wall deformity. Symmetrical expansion. LUNGS: Equal air entry with diminished breath sounds and crackles CVS: Regular rate and rhythm, normal S1 and S2, no gallops, no murmurs, no rubs ABDOMEN: Soft, nontender. No hepatosplenomegaly, normal bowel sounds, no guarding or rigidity. PEG tube is in place EXTREMITIES: No clubbing, mild generalized swelling noted in upper and lower extremities no cyanosis, 2+ pulses and upper and lower extremities. MUSCULOSKELETAL: Muscle strength and tone normal. SPINE: No scoliosis or deformity SKIN: No rashes CENTRAL NERVOUS SYSTEM: Sedated, intubated No focal deficits, tone is normal in all 4 extremities. - Labs CBC & Chem 7: 05/29/21 04:00 05/29/21 04:00 Labs: Abnormal Lab Results - Last 24 Hours (Table) 05/28/21 05/28/21 05/28/21 Range/Units 11:47 16:22 17:40 WBC (3.8-10.6) k/uL RBC (4.30-5.90) m/uL Hgb (13.0-17.5) gm/dL Hct (39.0-53.0) % Plt Count (150-450) k/uL Neutrophils # (1.3-7.7) k/uL Lymphocytes # (1.0-4.8) k/uL D-Dimer (<0.60) mg/L FEU ABG pH 7.29 L (7.35-7.45) ABG pCO2 57 H (35-45) mmHg ABG pO2 82 L (83-108) mmHg ABG HCO3 27 H (21-25) mmol/L ABG Total CO2 29 H (19-24) mmol/L ABG O2 Saturation (94-97) % Chloride (98-107) mmol/L Glucose (74-99) mg/dL POC Glucose (mg/dL) 120 H 127 H (75-99) mg/dL Calcium (8.4-10.2) mg/dL AST (17-59) U/L C-Reactive Protein (<1.0) mg/dL Total Protein (6.3-8.2) g/dL Albumin (3.5-5.0) g/dL 05/29/21 05/29/21 05/29/21 Range/Units 00:01 04:00 04:00 WBC 15.6 H (3.8-10.6) k/uL RBC 3.23 L (4.30-5.90) m/uL Hgb 10.2 L (13.0-17.5) gm/dL Hct 31.9 L (39.0-53.0) % Plt Count 486 H (150-450) k/uL Neutrophils # 14.9 H (1.3-7.7) k/uL Lymphocytes # 0.3 L (1.0-4.8) k/uL D-Dimer 1.13 H (<0.60) mg/L FEU ABG pH (7.35-7.45) ABG pCO2 (35-45) mmHg ABG pO2 (83-108) mmHg ABG HCO3 (21-25) mmol/L ABG Total CO2 (19-24) mmol/L ABG O2 Saturation (94-97) % Chloride (98-107) mmol/L Glucose (74-99) mg/dL POC Glucose (mg/dL) 139 H (75-99) mg/dL Calcium (8.4-10.2) mg/dL AST (17-59) U/L C-Reactive Protein (<1.0) mg/dL Total Protein (6.3-8.2) g/dL Albumin (3.5-5.0) g/dL 05/29/21 05/29/21 05/29/21 Range/Units 04:00 05:51 06:00 WBC (3.8-10.6) k/uL RBC (4.30-5.90) m/uL Hgb (13.0-17.5) gm/dL Hct (39.0-53.0) % Plt Count (150-450) k/uL Neutrophils # (1.3-7.7) k/uL Lymphocytes # (1.0-4.8) k/uL D-Dimer (<0.60) mg/L FEU ABG pH 7.31 L (7.35-7.45) ABG pCO2 55 H (35-45) mmHg ABG pO2 (83-108) mmHg ABG HCO3 28 H (21-25) mmol/L ABG Total CO2 29 H (19-24) mmol/L ABG O2 Saturation 97.4 H (94-97) % Chloride 112 H (98-107) mmol/L Glucose 118 H (74-99) mg/dL POC Glucose (mg/dL) 133 H (75-99) mg/dL Calcium 8.3 L (8.4-10.2) mg/dL AST 12 L (17-59) U/L C-Reactive Protein 12.5 H (<1.0) mg/dL Total Protein 4.9 L (6.3-8.2) g/dL Albumin 2.1 L (3.5-5.0) g/dL Assessment and Plan Plan: Assessment: #1. Acute hypoxic respiratory failure related to acute COVID-19 pneumonia, and possibility of bacterial infection/aspiration related pneumonia is not entirely excluded, sputum culture showed ESBL E. coli, and patient will be covered with meropenem. ID service is on the case. Patient was brought into the emergency department on 05/17/2021 per EMS, patient is a poor historian, reportedly has history of bipolar disease and dementia. Came in primarily for evaluation of altered mental status. Transferred from [place] emergency department for COVID-19 related pneumonia. The patient was taken to the hospital in [place] 4 days prior to this admission and the symptom onset was probably even prior to that. Exact onset of symptoms is not known. Patient was transferred to the intensive care unit on 05/19/2021 for worsening hypoxia, and hypercapnia, and altered mental status, and was intubated on 05/19/2021 on assist control mode of ventilation with a rate of 30, tidal on his 300, FiO2 50% and PEEP of 10. Patient had tolerated pressure support trials, and was extubated on 05/24/2021 however failed and was reintubated on 05/25/2021 #2. Acute hypercapnic respiratory failure, related to acute aspiration, and possible COVID-19 pneumonia, requiring intubation and mechanical ventilator support #3. Hypotension, related to dehydration, and possibility of septic shock. Patient remains on norepinephrine for vasopressor support, serum cortisol level was only 7, stress dose hydrocortisone was started, and is currently at 50 mg every 8 hours #4. Altered mental status with worsened from baseline #5. History of dementia and schizoaffective disorder #6. Acute dehydration and hypernatremia, on the D5W at 100 ML per hour, improving #7. Chronic stage 3 kidney disease #8. COPD #9. History of coronary artery disease #10. GERD/reflux #11. Hyperlipidemia #12. Acute kidney injury related to ATN, and dehydration, patient continues on IV hydration and continues to receive fluid boluses #13. Hyperkalemia related to GU[place], resolved #14. Hypoglcemia, was placed on D10 at 100 ml, will start tube feeds today. Blood sugars improved Plan: Today's blood gases, labs, CXR and labs reviewed Continue current ventilator settings FiO2 was cut back down to 40%, PEEP at 5 Patient is hypothermic and is suspected to be septic Sputum culture showing ESBL E. coli, and we'll cover the patient with meropenem until further ID recommendation has been made Awaiting results of Blood cultures Increase Hydrocortisone to 100 mg q6h Continue nutritional support Overall patient's condition is critical but stable Recommend discussing CODE STATUS with the patient's family We will continue supportive treatment I performed a history & physical examination of the patient and discussed their management with my nurse practitioner, Veronica Chiu. I reviewed the nurse practitioner's note and agree with the documented findings and plan of care. Lung sounds are positive for diminished breath sounds throughout the lung watson. The findings and the impression was discussed with the patient. I attest to the documentation by the nurse practitioner. Time with Patient: Greater than 30
--- NOTE | 2021-05-29 14:11 | P.PN ---
Subjective Progress Note Date: 05/29/21 CHIEF COMPLAINT: COVID-19 pneumonia HISTORY OF PRESENT ILLNESS: Patient is in the ICU intubated and sedated. Patient is status post PEG tube and tracheostomy placement on 05/26/21. Patient was noted to have a small cuff leak. His tidal volumes have been stable. Patient is tolerating tube feeds. Patient has been hypothermic. WBC 15.6 hemoglobin 10.2 PHYSICAL EXAM: VITAL SIGNS: Reviewed. GENERAL: no acute distress. HEENT: Moist buccal mucosa. Head is atraumatic, normocephalic. Tracheostomy s ite small cough leak ABDOMEN: Soft. Nondistended. PEG tube site clean dry and intact NEUROLOGIC: Intubated and sedated ASSESSMENT: 1. Acute hypoxic respiratory failure secondary to COVID-19 pneumonia with mechanical ventilation and difficulty weaning from the vent status post tracheostomy placement 2. Severe protein calorie malnutrition status post PEG tube placement PLAN: -Continue titrate to feedings per dietitian recommendations -Continue to monitor cuff leak at tracheostomy site -Continue supportive care -Continue ICU management Physician Education Director note has been reviewed by physician. Signing provider agrees with the documented findings, assessment, and plan of care. Objective - Vital Signs Vital signs: Vital Signs Temp 97.1 F L 05/29/21 12:00 Pulse 82 05/29/21 13:15 Resp 30 H 05/29/21 13:15 BP 113/72 05/29/21 13:15 Pulse Ox 94 L 05/29/21 13:15 Intake & Output 05/28/21 05/29/21 05/29/21 18:59 06:59 18:59 Intake Total 5998.270 5964.830 1343.983 Output Total 1165 1250 505 Balance 9.735 769.830 838.983 Weight 74.7 kg 82.4 kg Intake: IV 723 1244.6 686 0.9 NaCl- 20 220 140 Dextrose 5% in Water 1, 600 825 525 000 ml @ 75 mls/hr IV . [id number] [facility] Rx#:[id number] Meropenem 166.6 Valproate Sodium 250 mg 100 In Sodium Chloride 0.9% 100 ml @ 100 mls/hr IVPB Q6HR@0300,0900,1500,2100 [facility] Rx#:[id number] pressure bag 3 33 21 Intake, IV Titration 385.735 443.230 435.983 Amount Cisatracurium 200 mg In 83.664 81.983 Sodium Chloride 0.9% 180 ml @ 2 MCG/KG/MIN 8.964 mls/hr IV .[id number] [facility] Rx #:[id number] Norepinephrine 4 mg In 185.735 259.566 254.000 Sodium Chloride 0.9% 250 ml @ 0.05 MCG/KG/MIN 13. 697 mls/hr IV .[id number] [facility] Rx#:[id number] propofoL 1,000 mg In 200.000 100.000 100 Empty Bag 1 bag @ Titrate IV .Q0M [facility] Rx#: [id number] Tube Feeding 66 242 132 Other 90 90 Output: Urine 1165 1250 505 Other: Voiding Method Indwelling Catheter Indwelling Catheter # Voids 2 ABP, PAP, CO, CI - Last Documented Arterial Blood Pressure 115/61 - Labs CBC & Chem 7: 05/29/21 04:00 05/29/21 04:00 Labs: Abnormal Lab Results - Last 24 Hours (Table) 05/28/21 05/28/21 05/29/21 Range/Units 16:22 17:40 00:01 WBC (3.8-10.6) k/uL RBC (4.30-5.90) m/uL Hgb (13.0-17.5) gm/dL Hct (39.0-53.0) % Plt Count (150-450) k/uL Neutrophils # (1.3-7.7) k/uL Lymphocytes # (1.0-4.8) k/uL D-Dimer (<0.60) mg/L FEU ABG pH 7.29 L (7.35-7.45) ABG pCO2 57 H (35-45) mmHg ABG pO2 82 L (83-108) mmHg ABG HCO3 27 H (21-25) mmol/L ABG Total CO2 29 H (19-24) mmol/L ABG O2 Saturation (94-97) % Chloride (98-107) mmol/L Glucose (74-99) mg/dL POC Glucose (mg/dL) 127 H 139 H (75-99) mg/dL Calcium (8.4-10.2) mg/dL AST (17-59) U/L C-Reactive Protein (<1.0) mg/dL Total Protein (6.3-8.2) g/dL Albumin (3.5-5.0) g/dL 05/29/21 05/29/21 05/29/21 Range/Units 04:00 04:00 04:00 WBC 15.6 H (3.8-10.6) k/uL RBC 3.23 L (4.30-5.90) m/uL Hgb 10.2 L (13.0-17.5) gm/dL Hct 31.9 L (39.0-53.0) % Plt Count 486 H (150-450) k/uL Neutrophils # 14.9 H (1.3-7.7) k/uL Lymphocytes # 0.3 L (1.0-4.8) k/uL D-Dimer 1.13 H (<0.60) mg/L FEU ABG pH (7.35-7.45) ABG pCO2 (35-45) mmHg ABG pO2 (83-108) mmHg ABG HCO3 (21-25) mmol/L ABG Total CO2 (19-24) mmol/L ABG O2 Saturation (94-97) % Chloride 112 H (98-107) mmol/L Glucose 118 H (74-99) mg/dL POC Glucose (mg/dL) (75-99) mg/dL Calcium 8.3 L (8.4-10.2) mg/dL AST 12 L (17-59) U/L C-Reactive Protein 12.5 H (<1.0) mg/dL Total Protein 4.9 L (6.3-8.2) g/dL Albumin 2.1 L (3.5-5.0) g/dL 05/29/21 05/29/21 Range/Units 05:51 06:00 WBC (3.8-10.6) k/uL RBC (4.30-5.90) m/uL Hgb (13.0-17.5) gm/dL Hct (39.0-53.0) % Plt Count (150-450) k/uL Neutrophils # (1.3-7.7) k/uL Lymphocytes # (1.0-4.8) k/uL D-Dimer (<0.60) mg/L FEU ABG pH 7.31 L (7.35-7.45) ABG pCO2 55 H (35-45) mmHg ABG pO2 (83-108) mmHg ABG HCO3 28 H (21-25) mmol/L ABG Total CO2 29 H (19-24) mmol/L ABG O2 Saturation 97.4 H (94-97) % Chloride (98-107) mmol/L Glucose (74-99) mg/dL POC Glucose (mg/dL) 133 H (75-99) mg/dL Calcium (8.4-10.2) mg/dL AST (17-59) U/L C-Reactive Protein (<1.0) mg/dL Total Protein (6.3-8.2) g/dL Albumin (3.5-5.0) g/dL Microbiology - Last 24 Hours (Table) 05/28/21 10:28 Blood Culture - Preliminary Blood No Growth after 24 hours
[2021-05-29] MEDS: ARTIFICIAL TEARS-HYPROMELLOSE DROPS 15 ML BTL BOTH EYES SCH ×3 (15:11→23:39)
[2021-05-29 17:30] LABS: Glucose,Whole Blood 143 mg/dL (75-99)
[2021-05-29 18:24] LABS: Glucose,Whole Blood 147 mg/dL (75-99)
[2021-05-29] MEDS: OLANZapine ODT 10 MG TAB PO SCH (21:19)
[2021-05-29] MEDS: ATORVASTATIN 20 MG TAB PO SCH (21:19)
--- NOTE | 2021-05-29 22:10 | P.PN ---
Subjective Progress Note Date: 05/28/21 Principal diagnosis: COVID-19 pneumonia Interval history: Patient is a 70-year-old male presented to the hospital with acute respiratory failure in this but have a evidence of multifocal pneumonia secondary to COVID-19. Patient did have worsening of his respiratory status requiring intubation on 05/19/2021, patient has been extubated on 05/24/2021 however the patient did have worsening of his respiratory status and inability intubated night of 05/24/2021, patient is status post trach and PEG on 05/26/2021 On today's evaluation that is 05/28/2021, The patient continues to be afebrile, the patient is hemodynamically stable , no significant purulent secretions from the ET or diarrhea has been reported by the nursing staff, Objective - Vital Signs Vital signs: Vital Signs Temp 96.2 F L 05/28/21 12:00 Pulse 67 05/28/21 13:00 Resp 42 H 05/28/21 13:00 BP 113/62 05/28/21 13:00 Pulse Ox 100 05/28/21 13:00 Intake & Output 05/27/21 05/28/21 05/28/21 18:59 06:59 18:59 Intake Total 2150.791 2208.35 820.553 Output Total 1285 1010 975 Balance 293.706 0677.35 -154.447 Weight 74.7 kg 74.7 kg Intake: IV 1316 1676 573 0.9 NaCl- 280 240 20 Ceftazidime/Avibactam 2.5 100 gm In Sodium Chloride 0. 9% 100 ml @ 50 mls/hr IVPB Q8HR [facility] Rx#: [id number] Dextrose 5% in Water 1, 900 900 450 000 ml @ 75 mls/hr IV . [id number] [facility] Rx#:[id number] Potassium Chloride IVPB 200 Valproate Sodium 250 mg 100 200 100 In Sodium Chloride 0.9% 100 ml @ 100 mls/hr IVPB Q6HR@0300,0900,1500,2100 [facility] Rx#:[id number] pressure bag 36 36 3 Intake, IV Titration 634.791 178.35 203.553 Amount DOPamine DRIP 800 mg In 63.219 Water For Injection 1 250ml.bag @ 5 MCG/KG/MIN 6.375 mls/hr IV .Q24H [facility] Rx#:[id number] Norepinephrine 4 mg In 121.588 78.35 103.553 Sodium Chloride 0.9% 250 ml @ 0.05 MCG/KG/MIN 13. 697 mls/hr IV .[id number] [facility] Rx#:[id number] Piperacillin-Tazobactam 3 100 .375 gm In Sodium Chloride 0.9% 100 ml @ 25 mls/hr IVPB Q8HR [facility] Rx# :[id number] Potassium Chloride 10 meq 100 In Water For Injection 1 100ml.bag @ 100 mls/hr IVPB Q1HR [facility] Rx#: [id number] propofoL 1,000 mg In 249.984 100 100 Empty Bag 1 bag @ Titrate IV .Q0M [facility] Rx#: [id number] Tube Feeding 110 264 44 Other 90 90 Output: Urine 1285 1010 975 Other: Voiding Method Indwelling Catheter Indwelling Catheter Indwelling Catheter # Voids 2 ABP, PAP, CO, CI - Last Documented Arterial Blood Pressure 93/44 - Exam General description is an elderly male intubated on the vent Respiratory system:Unlabored breathing, decreased intensity in breath sounds. No wheeze. Heart S1, S2. Regular rate and rhythm. Abdomen soft, no tenderness. Extremities: No edema feet - Labs CBC & Chem 7: 05/29/21 04:00 05/29/21 04:00 Labs: Abnormal Lab Results - Last 24 Hours (Table) 05/27/21 05/27/21 05/28/21 Range/Units 17:38 23:41 01:38 WBC (3.8-10.6) k/uL RBC (4.30-5.90) m/uL Hgb (13.0-17.5) gm/dL Hct (39.0-53.0) % Neutrophils # (1.3-7.7) k/uL Lymphocytes # (1.0-4.8) k/uL D-Dimer (<0.60) mg/L FEU ABG pCO2 (35-45) mmHg ABG pO2 (83-108) mmHg ABG HCO3 (21-25) mmol/L ABG Total CO2 (19-24) mmol/L ABG O2 Saturation (94-97) % Chloride (98-107) mmol/L Glucose (74-99) mg/dL POC Glucose (mg/dL) 110 H 105 H 116 H (75-99) mg/dL Calcium (8.4-10.2) mg/dL AST (17-59) U/L C-Reactive Protein (<1.0) mg/dL Total Protein (6.3-8.2) g/dL Albumin (3.5-5.0) g/dL 05/28/21 05/28/21 05/28/21 Range/Units 04:15 04:15 04:15 WBC 16.1 H (3.8-10.6) k/uL RBC 3.06 L (4.30-5.90) m/uL Hgb 9.7 L (13.0-17.5) gm/dL Hct 29.7 L (39.0-53.0) % Neutrophils # 15.1 H (1.3-7.7) k/uL Lymphocytes # 0.3 L (1.0-4.8) k/uL D-Dimer 1.11 H (<0.60) mg/L FEU ABG pCO2 (35-45) mmHg ABG pO2 (83-108) mmHg ABG HCO3 (21-25) mmol/L ABG Total CO2 (19-24) mmol/L ABG O2 Saturation (94-97) % Chloride 111 H (98-107) mmol/L Glucose 138 H (74-99) mg/dL POC Glucose (mg/dL) (75-99) mg/dL Calcium 7.5 L (8.4-10.2) mg/dL AST 13 L (17-59) U/L C-Reactive Protein 15.8 H (<1.0) mg/dL Total Protein 4.5 L (6.3-8.2) g/dL Albumin 1.9 L (3.5-5.0) g/dL 05/28/21 05/28/21 05/28/21 Range/Units 05:32 06:00 11:47 WBC (3.8-10.6) k/uL RBC (4.30-5.90) m/uL Hgb (13.0-17.5) gm/dL Hct (39.0-53.0) % Neutrophils # (1.3-7.7) k/uL Lymphocytes # (1.0-4.8) k/uL D-Dimer (<0.60) mg/L FEU ABG pCO2 49 H (35-45) mmHg ABG pO2 130 H (83-108) mmHg ABG HCO3 27 H (21-25) mmol/L ABG Total CO2 29 H (19-24) mmol/L ABG O2 Saturation 99.5 H (94-97) % Chloride (98-107) mmol/L Glucose (74-99) mg/dL POC Glucose (mg/dL) 119 H 120 H (75-99) mg/dL Calcium (8.4-10.2) mg/dL AST (17-59) U/L C-Reactive Protein (<1.0) mg/dL Total Protein (6.3-8.2) g/dL Albumin (3.5-5.0) g/dL Microbiology - Last 24 Hours (Table) 05/25/21 04:54 Gram Stain - Final Sputum Sputum Culture - Final Escherichia coli Assessment and Plan (1) Aspiration pneumonia Current Visit: Yes Status: Acute Code(s): J69.0 - PNEUMONITIS DUE TO INHALATION OF FOOD AND VOMIT SNOMED Code(s): 614102383 (2) COVID-19 Current Visit: Yes Status: Acute Code(s): U07.1 - COVID-19 SNOMED Code(s): 395882038 Plan: Patient with acute respiratory failure which is multifactorial in this patient with initial diagnosis of COVID-19 pneumonia in this patient did have significant worsening of his respiratory status requiring intubation and concern for possible aspiration pneumonitis, patient's sputum has been finalized with ESBL E. coli, patient is currently on Depakote contraindicating the use of meropenem/Invanz, patient was started on Avycaz however antibiotic has been switched over to meropenem per pulmonary patient need to monitor closely for any seizure activity Time with Patient: Less than 30
--- NOTE | 2021-05-29 22:11 | P.PN ---
Subjective Progress Note Date: 05/29/21 Principal diagnosis: COVID-19 pneumonia Interval history: Patient is a 70-year-old male presented to the hospital with acute respiratory failure in this but have a evidence of multifocal pneumonia secondary to COVID-19. Patient did have worsening of his respiratory status requiring intubation on 05/19/2021, patient has been extubated on 05/24/2021 however the patient did have worsening of his respiratory status and inability intubated night of 05/24/2021, patient is status post trach and PEG on 05/26/2021 On today's evaluation that is 05/29/2021, The patient remains to be afebrile, the patient is hemodynamically stable , no significant purulent secretions from the ET or diarrhea has been reported by the nursing staff, no new changes has been reported Objective - Vital Signs Vital signs: Vital Signs Temp 97.1 F L 05/29/21 16:00 Pulse 46 L 05/29/21 19:00 Resp 30 H 05/29/21 19:00 BP 108/55 05/29/21 18:45 Pulse Ox 100 05/29/21 19:00 Intake & Output 05/29/21 05/29/21 05/30/21 06:59 18:59 06:59 Intake Total 2019.830 2029.054 234.245 Output Total 1250 1070 100 Balance 769.830 959.054 134.245 Weight 82.4 kg Intake: IV 1244.6 1176 98 0.9 NaCl- 220 240 20 Dextrose 5% in Water 1, 825 900 75 000 ml @ 75 mls/hr IV . [id number] [facility] Rx#:[id number] Meropenem 166.6 pressure bag 33 36 3 Intake, IV Titration 443.230 483.054 114.245 Amount Cisatracurium 200 mg In 83.664 81.983 Sodium Chloride 0.9% 180 ml @ 2 MCG/KG/MIN 8.964 mls/hr IV .[id number] [facility] Rx #:[id number] Norepinephrine 4 mg In 259.566 301.071 14.245 Sodium Chloride 0.9% 250 ml @ 0.05 MCG/KG/MIN 13. 697 mls/hr IV .[id number] [facility] Rx#:[id number] propofoL 1,000 mg In 100.000 100 100 Empty Bag 1 bag @ Titrate IV .Q0M [facility] [place] Rx#: [id number] Tube Feeding 242 220 22 Other 90 150 Output: Urine 1250 1070 100 Other: Voiding Method Indwelling Catheter Indwelling Catheter ABP, PAP, CO, CI - Last Documented Arterial Blood Pressure 132/51 - Exam General description is an elderly male intubated on the vent Respiratory system:Unlabored breathing, decreased intensity in breath sounds. Heart S1, S2. Regular rate and rhythm. Abdomen soft, no tenderness. Extremities: No edema feet - Labs CBC & Chem 7: 05/29/21 04:00 05/29/21 04:00 Labs: Abnormal Lab Results - Last 24 Hours (Table) 05/29/21 05/29/21 05/29/21 Range/Units 00:01 04:00 04:00 WBC 15.6 H (3.8-10.6) k/uL RBC 3.23 L (4.30-5.90) m/uL Hgb 10.2 L (13.0-17.5) gm/dL Hct 31.9 L (39.0-53.0) % Plt Count 486 H (150-450) k/uL Neutrophils # 14.9 H (1.3-7.7) k/uL Lymphocytes # 0.3 L (1.0-4.8) k/uL D-Dimer 1.13 H (<0.60) mg/L FEU ABG pH (7.35-7.45) ABG pCO2 (35-45) mmHg ABG HCO3 (21-25) mmol/L ABG Total CO2 (19-24) mmol/L ABG O2 Saturation (94-97) % Chloride (98-107) mmol/L Glucose (74-99) mg/dL POC Glucose (mg/dL) 139 H (75-99) mg/dL Calcium (8.4-10.2) mg/dL AST (17-59) U/L C-Reactive Protein (<1.0) mg/dL Total Protein (6.3-8.2) g/dL Albumin (3.5-5.0) g/dL 05/29/21 05/29/21 05/29/21 Range/Units 04:00 05:51 06:00 WBC (3.8-10.6) k/uL RBC (4.30-5.90) m/uL Hgb (13.0-17.5) gm/dL Hct (39.0-53.0) % Plt Count (150-450) k/uL Neutrophils # (1.3-7.7) k/uL Lymphocytes # (1.0-4.8) k/uL D-Dimer (<0.60) mg/L FEU ABG pH 7.31 L (7.35-7.45) ABG pCO2 55 H (35-45) mmHg ABG HCO3 28 H (21-25) mmol/L ABG Total CO2 29 H (19-24) mmol/L ABG O2 Saturation 97.4 H (94-97) % Chloride 112 H (98-107) mmol/L Glucose 118 H (74-99) mg/dL POC Glucose (mg/dL) 133 H (75-99) mg/dL Calcium 8.3 L (8.4-10.2) mg/dL AST 12 L (17-59) U/L C-Reactive Protein 12.5 H (<1.0) mg/dL Total Protein 4.9 L (6.3-8.2) g/dL Albumin 2.1 L (3.5-5.0) g/dL 05/29/21 05/29/21 Range/Units 17:28 18:22 WBC (3.8-10.6) k/uL RBC (4.30-5.90) m/uL Hgb (13.0-17.5) gm/dL Hct (39.0-53.0) % Plt Count (150-450) k/uL Neutrophils # (1.3-7.7) k/uL Lymphocytes # (1.0-4.8) k/uL D-Dimer (<0.60) mg/L FEU ABG pH (7.35-7.45) ABG pCO2 (35-45) mmHg ABG HCO3 (21-25) mmol/L ABG Total CO2 (19-24) mmol/L ABG O2 Saturation (94-97) % Chloride (98-107) mmol/L Glucose (74-99) mg/dL POC Glucose (mg/dL) 143 H 147 H (75-99) mg/dL Calcium (8.4-10.2) mg/dL AST (17-59) U/L C-Reactive Protein (<1.0) mg/dL Total Protein (6.3-8.2) g/dL Albumin (3.5-5.0) g/dL Microbiology - Last 24 Hours (Table) 05/28/21 10:28 Blood Culture - Preliminary Blood No Growth after 24 hours Assessment and Plan (1) Aspiration pneumonia Current Visit: Yes Status: Acute Code(s): J69.0 - PNEUMONITIS DUE TO INHALATION OF FOOD AND VOMIT SNOMED Code(s): 578134118 (2) COVID-19 Current Visit: Yes Status: Acute Code(s): U07.1 - COVID-19 SNOMED Code(s): 269596940 Plan: Patient with acute respiratory failure which is multifactorial in this patient with initial diagnosis of COVID-19 pneumonia in this patient did have significant worsening of his respiratory status requiring intubation and concern for possible aspiration pneumonitis, patient's sputum has been finalized with ESBL E. coli, patient is currently on Depakote contraindicating the use of meropenem/Invanz, patient was started on Avycaz however antibiotic has been switched over to meropenem per pulmonary, to continue for now and monitor his clinical course closely
--- NOTE | 2021-05-29 23:08 | P.PN ---
Subjective Progress Note Date: 05/29/21 This is a 70-year-old male who was recently admitted with change in mental status and fall and also shortness of breath and acute COVID-19 pneumonia and being closely monitored. Patient was continued on high flow oxygen although respiratory status continued to deteriorate and an A team was called. Patient was brought to the ICU for close monitoring and x-ray showed some bilateral lower lobe pneumonia which appears unchanged compared to recent exam with no obvious heart failure. Patient was placed on mechanical vent and intubated and sedated and is being closely monitored. Multiple medical consultations including pulmonary and infectious disease following closely. 05/20/2021 Patient is seen in follow-up activity is to be closely monitored in the ICU. Blood pressure and heart rate has been extremely variable and patient is maintained on D10 in water along with norepinephrine and will continue. Pulmonary and infectious disease following closely. Patient continues with worsening kidney functions nephrology consulted and patient is being given a liter bolus for hypotension and repeat sodium level ordered. Patient also continues on Zosyn and ID following closely. Patient continues with low blood sugar readings as well and we'll continue D10 and close glucose monitoring. Chest x-ray shows some improvement in bibasilar infiltrates more so on the right and possibly developing small right pleural effusion. 05/21/2021 Patient is seen and evaluated this morning continues to be in the ICU with multiple medical consultations following. Patient is continued on IV antibiotics with ID following. Cultures continue to be negative and WBC is 8.5. Patient did have low grade temp today. Patient continues on mechanical vent and sedated. Chest xray similar to previous exam and will continue to monitor. Prognosis remains guarded. Patient also continued on norepinephrine. 05/22/2021 Patient is seen and evaluated today continues to be on mechanical vent with an FiO2 of 40% PEEP is 5. Patient continuing with weaning trials and assist mode on mechanical vent although patient continues to not follow commands per nursing staff. Per pulmonary site technician continued attempts at weaning. Chest x-ray shows chronic emphysematous changes and pulmonary fibrosis with moderate bilater al pleural effusions and bilateral multifocal increased opacification consistent with COVID-19 infection are all redemonstrated with no significant change from yesterday. Sputum culture finalized showing Romelia species not albicans, glabrata along with Romelia albicans and infectious disease is following. Patient continues on IV antibiotics in the form of Zosyn. Patient is currently off norepinephrine and receiving Solu-Cortef along with valproic acid and Depakote. Patient is continued on Lovenox for DVT prophylaxis. Patient also continues on D5 in water at 100 mL per hour. Blood gases are improving and pulmonary discussing possible extubation. 05/23/2021 Patient is seen this morning continues to be on mechanical vent with an FiO2 of 40 and a PEEP of 5 with continued weaning trials. Patient is off sedation and does open eyes to verbal stimuli although does not follow commands. Chest x-ray today shows chronic emphysematous and pulmonary fibrotic changes with small size bilateral pleural effusions and bilateral multifocal increased opacification is consistent with COVID-19 infection are again redemonstrated with no significant change from previous. General surgery consulted for possible trach and peg tube placement. 05/24/2021 Patient with spontaneous eye opening during assessment, eyes are tracking, however when asked to squeeze fingers patient unable to do so and did not wiggle toes when asked. He was not responsive to commands or yes or no questions. Continues in the ICU on 5L NC with an oxygen saturation of 91%. He is afebrile, Heart rate is in the 40-50's dropping into the mid 30's. Unclear whether patient is in a heart block, nurse reports HR of 30's seems to be when he is sleeping. EKG will try to be obtained when he is in the 30's. Respirations are 23, blood pressure 135/55. Chest xray today remains unchanged. Possible trach and PEG tube wednesday if needed. Labs today show WBC 7.0, hgb 9.1, D-dimer 0.86, sodium 142, potassium 3.6, BUN 33, creatinine 1.28, glucose in the 130s, calcium 7.8, CRP 1.7, total protein 4.6, albumin 2.0. Multiple consultations. Prognosis remains guarded. 05/25/2021 Throughout the evening patient desaturated and his blood pressure was dropping while on the levophed and his heart rate was increasing and then once he was off the levophed his heart rate was increasing and his blood pressure was dropping. Patient was reintubated with an Fi02 of 60%. Blood gases at the time showed a pCO2 of greater than 120, pH 6.97, pO2 170, total oxygen saturation 98. Oxygen saturations 98%, he is afebrile, pulse rate 43 appears sinus bradycardia on EKG that was obtained midmorning. Blood pressure 135/75. Blood gases have improved with a pH now 7.30, pCO2 57, pO2 57, HCO3 28, total CO2 30 and O2 saturation 87.5. Sodium 140, potassium 3.7, chloride 109, CO2 28, BUN 27, creatinine 1.36, blood glucose 120, calcium 8.1, AST 27, ALT 19, LDH 585, CRP 1.9. Chest x-ray today shows as based consolidation atelectasis and volume loss in the right hemithorax which is slightly compared to exam yesterday. Has pulmonary interstitial edema on the left side without change. Plan is for a PEG, trach tomorrow. Cardiology was consulted and started patient on a dopamine infusion. Patient is on D5 water at 75 mL per hour, levophed infusing, propofol, on IV Zosyn and IV valproic acid. Labs initial white count 13, hemoglobin 10.7, d- dimer 1.84. 05/26/2021 Patient is seen today in follow up in the ICU being closely monitored. Multiple medical consultations following along with general surgery and is scheduled for peg and trach placement today. Tube feedings on hold. Patient continues on mechanical vent and FI02 is 50% peep is 5. Chest xray today shows COPD right greater than left with covid infiltrates and aeration improving now on the right. Potassium is 3.2 and being replaced. Lovenox on hold for the procedure as well. 05/27/2021 Patient is seen in follow-up in the ICU with multiple medical consultations following. Patient is status post PEG and trach placement and will be initiating tube feeds once cleared by surgery. Sputum culture finalized showing E. coli with ESBL and resistance and infectious disease is following. Patient was continued on dopamine along with Levophed and attempting to wean per nursing staff. Patient also continues in D5 water with nephrology following closely. Patient is on IV Zosyn along with nystatin and will continue. Chest x-ray today shows stable portable chest with no evidence of pneumothorax and no change in bibasilar opacities. Patient continues on propofol and FiO2 is 50% with a PEEP of 5. Potassium found a 3.2 and replaced and will repeat labs. 05/28/2021 Patient is seen in follow-up this morning continues to be in the ICU with multiple medical consultations following. Patient is currently continued on mechanical vent via tracheostomy and FiO2 is 40% with a PEEP of 5. Patient is status post peg and trach and surgery following. Patient resumed on lovenox and tube feedings. Tolerating tube feedings thus far. Patient continues on levophed and off dopamine. Patient was on Midodrine and will resume along with his olanzapine and continue to monitor closely. Patient is maintained on Meropenem and ID following closely. Patient also continues on solu-cortef and d5 in water with nephrology following as well. 05/29/2021 Patient is seen and evaluated in follow-up today continues to be in the ICU under close observation with multiple medical consultations following. Patient continues on mechanical ventilation via tracheostomy and FiO2 is 40% and PEEP is 5. Chest xray today shows COPD with continued peripheral and basilar covid infiltrates, similar to slightly worsened from yesterday. Patient continues with sedation holidays to assess mentation although continues to not follow commands appropriately. Patient continues on Levophed as well. IV merrem to continue. Review of systems: Unable to obtain as patient is mechanically intubated and sedated Labs: WBC is 15.6, hemoglobin is 10.2, d-dimer is 1.13, sodium is 140, potassium 4.3, BUN 16, creatinine 1.23, calcium 8.3, LDH 426, CRP 12.5 Active Medications Acetaminophen (Acetaminophen Tab 325 Mg Tab) 650 mg PO Q6HR PRN PRN Reason: Mild Pain or Fever > 100.5 Last Admin: 05/18/21 23:16 Dose: 650 mg Documented by: Albuterol Sulfate (Albuterol Hfa Inhaler) 2 puff INHALATION RT-QID [facility] Last Admin: 05/29/21 11:11 Dose: Not Given Documented by: Artificial Tears (Artificial Tears-Hypromellose Drops 15 Ml Btl) 1 drops BOTH EYES Q4HR [facility] Atorvastatin Calcium (Atorvastatin 20 Mg Tab) 20 mg PO HS [facility] Last Admin: 05/28/21 21:23 Dose: 20 mg Documented by: Enoxaparin Sodium (Enoxaparin 40 Mg/0.4 Ml Syringe) 40 mg SQ DAILY [facility] Last Admin: 05/29/21 08:26 Dose: 40 mg Documented by: Ferrous Sulfate (Ferrous Sulfate 325 Mg Tab) 325 mg PO DAILY [facility] Last Admin: 05/29/21 08:27 Dose: 325 mg Documented by: Folic Acid (Folic Acid 1 Mg Tab) 1 mg PO DAILY [facility] Last Admin: 05/29/21 08:27 Dose: 1 mg Documented by: Hydrocortisone Sodium Succinate (Hydrocortisone Succinate 100 Mg/2 Ml Vial) 100 mg IV Q6HR [facility] Last Admin: 05/29/21 12:29 Dose: 100 mg Documented by: Dextrose/Water (Dextrose 5%-Water Iv Soln) 1,000 mls @ 75 mls/hr IV .[id number] [facility] Last Admin: 05/29/21 04:00 Dose: 75 mls/hr Documented by: Norepinephrine Bitartrate 4 mg (/ Sodium Chloride) 254 mls @ 13.697 mls/hr IV .[id number] [facility]; Protocol Last Admin: 05/29/21 14:46 Dose: 0.07 mcg/kg/min, 19.176 mls/hr Documented by: Propofol 1,000 mg/ IV Solution 100 mls @ 0 mls/hr IV .Q0M [facility]; Protocol Last Admin: 05/29/21 08:32 Dose: 45 mcg/kg/min, 22.248 mls/hr Documented by: Meropenem 2 gm/ Sodium (Chloride) 100 mls @ 33.3 mls/hr IVPB Q8H [facility]; Protocol Last Admin: 05/29/21 12:30 Dose: 33.3 mls/hr Documented by: Cisatracurium Besylate 200 mg/ (Sodium Chloride) 200 mls @ 8.964 mls/hr IV .[id number] [facility]; Protocol Last Admin: 05/29/21 09:04 Dose: 2.5 mcg/kg/min, 11.205 mls/hr Documented by: Midodrine (Midodrine 5 Mg Tab) 10 mg PO AC-TID [facility] Last Admin: 05/29/21 12:29 Dose: 10 mg Documented by: Miscellaneous Information (Potassium Replacement Protocol 1 Each Misc) 1 each MISCELLANE DAILY PRN; Protocol PRN Reason: Per Protocol Nystatin (Nystatin 100,000 Unit/Ml Susp 500,000 Unit/5 Ml Cup) 500,000 unit PO QID [facility] Last Admin: 05/29/21 13:23 Dose: 500,000 unit Documented by: Olanzapine (Olanzapine Odt 5 Mg Tab) 5 mg PO DAILY [facility] Last Admin: 05/29/21 08:27 Dose: 5 mg Documented by: Olanzapine (Olanzapine Odt 10 Mg Tab) 20 mg PO HS [facility] Last Admin: 05/28/21 22:06 Dose: 20 mg Documented by: Pantoprazole Sodium (Pantoprazole 40 Mg/10 Ml Vial) 40 mg IVP DAILY [facility] Last Admin: 05/29/21 08:28 Dose: 40 mg Documented by: Physical Exam: Gen: this is a 70-year-old male currently sedated and intubated. 40% mechanical ventilation with a PEEP of 5 HEENT: Head is atraumatic, normocephalic. Pupils equal, round. Sclerae is ani cteric. NECK: Supple. No JVD. No lymphadenopathy. No thyromegaly. LUNGS: Diminished breath sounds bilaterally with coarse rhonchi and crackles noted. No intercostal retractions. HEART: S1, S2 are muffled ABDOMEN: Soft. Bowel sounds are present. No masses. No tenderness. EXTREMITIES: No pedal edema. No calf tenderness. NEUROLOGICAL: Patient is currently intubated and sedated Assessment: Acute COVID-19 infection with acute COVID-19 bilateral interstitial pneumonia, right more than left with acute hypoxic respiratory failure, now requiring mechanical ventilation with extubation on 05/24/2021, and re-intubation on 05/25/2021 status post peg tube and tracheostomy placement Acute kidney injury secondary to acute tubular necrosis from septic shock Chronic kidney disease stage III secondary to nephrosclerosis Hypoglycemia, improved Change in mental status, metabolic encephalopathy, multifactorial Falling, gait dysfunction Anemia, normocytic anemia of undetermined significance Hypernatremia from poor oral intake Hyperkalemia secondary to acute kidney injury, resolved Elevated d-dimer history of coronary artery disease history of chronic obstructive pulmonary disease Gastroesophageal reflux disease history of bipolar, schizoaffective disorder and schizophrenia History of nicotine dependence Severe protein calorie malnutrition with a BMI of 19.1 Full code Plan: Recommend to continue with current medications and follow along closely with multiple medical consultations. Prognosis remains guarded with multiple complex medical issues noted. Patient is status post peg and trach placement and continues on mechanical vent. Sedated now with propofol although attempting sedation holiday to assess mentation and weaning. tube feedings being resumed and lovenox resumed. No bleeding noted at the trach site. Recommend continue with current medications and patient has been maintained on IV antibiotics with infectious disease following.. Patient will continue on merrem . Chest x-ray reviewed as mentioned above with some slight worsening today. Recommend repeat labs in the morning along with chest xray. Nephrology following as well. Again due to multiple complex medical issues prognosis is quite guarded. Objective - Vital Signs Vital signs: Vital Signs Temp 97.9 F 05/29/21 08:00 Pulse 99 05/29/21 09:00 Resp 30 H 05/29/21 09:00 BP 96/64 05/29/21 08:30 Pulse Ox 97 05/29/21 09:00 Intake & Output 05/28/21 05/29/21 05/29/21 18:59 06:59 18:59 Intake Total 9759.402 0651.830 695.628 Output Total 1165 1250 130 Balance 9.735 769.830 565.628 Weight 74.7 kg 82.4 kg Intake: IV 723 1244.6 294 0.9 NaCl- 20 220 60 Dextrose 5% in Water 1, 600 825 225 000 ml @ 75 mls/hr IV . [id number] [facility] Rx#:[id number] Meropenem 166.6 Valproate Sodium 250 mg 100 In Sodium Chloride 0.9% 100 ml @ 100 mls/hr IVPB Q6HR@0300,0900,1500,2100 [facility] Rx#:[id number] pressure bag 3 33 9 Intake, IV Titration 385.735 443.230 327.628 Amount Cisatracurium 200 mg In 83.664 81.983 Sodium Chloride 0.9% 180 ml @ 2 MCG/KG/MIN 8.964 mls/hr IV .[id number] [facility] Rx #:[id number] Norepinephrine 4 mg In 185.735 259.566 145.645 Sodium Chloride 0.9% 250 ml @ 0.05 MCG/KG/MIN 13. 697 mls/hr IV .[id number] [facility] Rx#:[id number] propofoL 1,000 mg In 200.000 100.000 100 Empty Bag 1 bag @ Titrate IV .Q0M [facility] Rx#: [id number] Tube Feeding 66 242 44 Other 90 30 Output: Urine 1165 1250 130 Other: Voiding Method Indwelling Catheter Indwelling Catheter # Voids 2 ABP, PAP, CO, CI - Last Documented Arterial Blood Pressure 71/44 - Labs CBC & Chem 7: 05/29/21 04:00 05/29/21 04:00 Labs: Abnormal Lab Results - Last 24 Hours (Table) 05/28/21 05/28/21 05/28/21 Range/Units 11:47 16:22 17:40 WBC (3.8-10.6) k/uL RBC (4.30-5.90) m/uL Hgb (13.0-17.5) gm/dL Hct (39.0-53.0) % Plt Count (150-450) k/uL Neutrophils # (1.3-7.7) k/uL Lymphocytes # (1.0-4.8) k/uL D-Dimer (<0.60) mg/L FEU ABG pH 7.29 L (7.35-7.45) ABG pCO2 57 H (35-45) mmHg ABG pO2 82 L (83-108) mmHg ABG HCO3 27 H (21-25) mmol/L ABG Total CO2 29 H (19-24) mmol/L ABG O2 Saturation (94-97) % Chloride (98-107) mmol/L Glucose (74-99) mg/dL POC Glucose (mg/dL) 120 H 127 H (75-99) mg/dL Calcium (8.4-10.2) mg/dL AST (17-59) U/L C-Reactive Protein (<1.0) mg/dL Total Protein (6.3-8.2) g/dL Albumin (3.5-5.0) g/dL 05/29/21 05/29/21 05/29/21 Range/Units 00:01 04:00 04:00 WBC 15.6 H (3.8-10.6) k/uL RBC 3.23 L (4.30-5.90) m/uL Hgb 10.2 L (13.0-17.5) gm/dL Hct 31.9 L (39.0-53.0) % Plt Count 486 H (150-450) k/uL Neutrophils # 14.9 H (1.3-7.7) k/uL Lymphocytes # 0.3 L (1.0-4.8) k/uL D-Dimer 1.13 H (<0.60) mg/L FEU ABG pH (7.35-7.45) ABG pCO2 (35-45) mmHg ABG pO2 (83-108) mmHg ABG HCO3 (21-25) mmol/L ABG Total CO2 (19-24) mmol/L ABG O2 Saturation (94-97) % Chloride (98-107) mmol/L Glucose (74-99) mg/dL POC Glucose (mg/dL) 139 H (75-99) mg/dL Calcium (8.4-10.2) mg/dL AST (17-59) U/L C-Reactive Protein (<1.0) mg/dL Total Protein (6.3-8.2) g/dL Albumin (3.5-5.0) g/dL 05/29/21 05/29/21 05/29/21 Range/Units 04:00 05:51 06:00 WBC (3.8-10.6) k/uL RBC (4.30-5.90) m/uL Hgb (13.0-17.5) gm/dL Hct (39.0-53.0) % Plt Count (150-450) k/uL Neutrophils # (1.3-7.7) k/uL Lymphocytes # (1.0-4.8) k/uL D-Dimer (<0.60) mg/L FEU ABG pH 7.31 L (7.35-7.45) ABG pCO2 55 H (35-45) mmHg ABG pO2 (83-108) mmHg ABG HCO3 28 H (21-25) mmol/L ABG Total CO2 29 H (19-24) mmol/L ABG O2 Saturation 97.4 H (94-97) % Chloride 112 H (98-107) mmol/L Glucose 118 H (74-99) mg/dL POC Glucose (mg/dL) 133 H (75-99) mg/dL Calcium 8.3 L (8.4-10.2) mg/dL AST 12 L (17-59) U/L C-Reactive Protein 12.5 H (<1.0) mg/dL Total Protein 4.9 L (6.3-8.2) g/dL Albumin 2.1 L (3.5-5.0) g/dL
[2021-05-29 23:35] LABS: Glucose,Whole Blood 151 mg/dL (75-99)
[2021-05-30] MEDS: MEROPENEM 2 GM in SODIUM CHLORIDE 0.9% 100 ML IVPB SCH ×2 (04:07→14:46)
[2021-05-30] MEDS: ARTIFICIAL TEARS-HYPROMELLOSE DROPS 15 ML BTL BOTH EYES SCH ×6 (04:07→23:09)
[2021-05-30] MEDS: DEXTROSE 5% IN WATER 1,000 ML IV SCH ×2 (04:10→17:47)
[2021-05-30 04:59] LABS: Basophils % (A) 0 %; Eosinophils % (A) 0 %; HCT 30.5 % (39.0-53.0); HGB 9.8 gm/dL (13.0-17.5); Hypochromasia Slight; Lymphocytes # (A) 0.3 k/uL (1.0-4.8); Lymphocytes % (A) 3 %; MCH 31.7 pg (25.0-35.0); Macrocytosis Slight; Monocytes # (A) 0.3 k/uL (0-1.0); Monocytes % (A) 3 %; Neutrophils # (A) 9.3 k/uL (1.3-7.7); Neutrophils % (A) 94 %; Platelet Count 459 k/uL (150-450); Poikilocytosis Slight; RBC 3.08 m/uL (4.30-5.90); RDW 15.2 % (11.5-15.5); WBC 9.9 k/uL (3.8-10.6)
[2021-05-30 05:27] LABS: Calcium 8.5 mg/dL (8.4-10.2); Potassium 4.3 mmol/L (3.5-5.1); Total Bilirubin 0.2 mg/dL (0.2-1.3); Total Protein 4.8 g/dL (6.3-8.2)
[2021-05-30 05:50] LABS: Glucose,Whole Blood 138 mg/dL (75-99)
[2021-05-30 06:05] LABS: ABG Base Excess 3.2 mmol/L; ABG HCO3 29 mmol/L (21-25); ABG Oxygen Saturation 98.1 % (94-97); ABG PCO2 55 mmHg (35-45); ABG PH 7.33 (7.35-7.45); ABG PO2 102 mmHg (83-108); ABG TCO2 31 mmol/L (19-24); Allen Test Performed? Yes
[2021-05-30] MEDS: HYDROCORTISONE SUCCINATE 100 MG/2 ML VIAL IV SCH ×4 (06:37→23:09)
[2021-05-30] MEDS: MIDODRINE 5 MG TAB PO SCH ×3 (06:37→18:54)
[2021-05-30] MEDS ORDERED: CHLORHEXIDINE GLUCONATE 15 ML CUP MUCOUS MEM ONE (07:15)
[2021-05-30] MEDS: ALBUTEROL HFA INHALER INHALATION SCH ×4 (07:23→19:25)
--- NOTE | 2021-05-30 07:43 | P.PN ---
Subjective Progress Note Date: 05/30/21 Principal diagnosis: Sinus bradycardia This is a 70-year-old female patient with coronary artery disease as well as multiple comorbid conditions was admitted to the intensive care unit with change in mental status and we consulted to see the patient mainly because of sinus bradycardia. Subsequently the patient was started on dopamine with improvement in the heart rate. Also the patient required intubation and mechanical ventilation because she developed acute hypoxic respiratory failure secondary to COVID-19 pneumonia. The patient was evaluated this morning. He continues to be mildly unstable and requiring small doses of norepinephrine. He is not on any AV sherri mikaela agents. From the cardiac standpoint of view, we'll follow-up with the patient on when necessary case. T Objective - Vital Signs Vital signs: Vital Signs Temp 95.0 F L 05/30/21 07:00 Pulse 45 L 05/30/21 07:00 Resp 30 H 05/30/21 07:00 BP 98/55 05/30/21 07:00 Pulse Ox 100 05/30/21 07:00 Intake & Output 05/29/21 05/30/21 05/30/21 18:59 06:59 18:59 Intake Total 2029.054 1819.450 120 Output Total 1070 855 100 Balance 959.054 964.450 20 Weight 84.8 kg Intake: IV 1176 1078 98 0.9 NaCl- 240 220 20 Dextrose 5% in Water 1, 900 825 75 000 ml @ 75 mls/hr IV . [id number] [facility] Rx#:[id number] pressure bag 36 33 3 Intake, IV Titration 483.054 379.450 Amount Cisatracurium 200 mg In 81.983 163.593 Sodium Chloride 0.9% 180 ml @ 2 MCG/KG/MIN 8.964 mls/hr IV .[id number] [facility] Rx #:[id number] Norepinephrine 4 mg In 301.071 33.787 Sodium Chloride 0.9% 250 ml @ 0.05 MCG/KG/MIN 13. 697 mls/hr IV .[id number] [facility] Rx#:[id number] propofoL 1,000 mg In 100 182.07 Empty Bag 1 bag @ Titrate IV .Q0M [facility] Rx#: [id number] Tube Feeding 220 242 22 Other 150 120 Output: Urine 1070 855 100 Other: Voiding Method Indwelling Catheter Indwelling Catheter ABP, PAP, CO, CI - Last Documented Arterial Blood Pressure 113/45 - Constitutional General appearance: Present: no acute distress - Labs CBC & Chem 7: 05/30/21 03:45 05/30/21 03:45 Labs: Abnormal Lab Results - Last 24 Hours (Table) 05/29/21 05/29/21 05/29/21 Range/Units 17:28 18:22 23:34 RBC (4.30-5.90) m/uL Hgb (13.0-17.5) gm/dL Hct (39.0-53.0) % Plt Count (150-450) k/uL Neutrophils # (1.3-7.7) k/uL Lymphocytes # (1.0-4.8) k/uL D-Dimer (<0.60) mg/L FEU ABG pH (7.35-7.45) ABG pCO2 (35-45) mmHg ABG HCO3 (21-25) mmol/L ABG Total CO2 (19-24) mmol/L ABG O2 Saturation (94-97) % Chloride (98-107) mmol/L Glucose (74-99) mg/dL POC Glucose (mg/dL) 143 H 147 H 151 H (75-99) mg/dL AST (17-59) U/L Total Protein (6.3-8.2) g/dL Albumin (3.5-5.0) g/dL 05/30/21 05/30/21 05/30/21 Range/Units 03:45 03:45 03:45 RBC 3.08 L (4.30-5.90) m/uL Hgb 9.8 L (13.0-17.5) gm/dL Hct 30.5 L (39.0-53.0) % Plt Count 459 H (150-450) k/uL Neutrophils # 9.3 H (1.3-7.7) k/uL Lymphocytes # 0.3 L (1.0-4.8) k/uL D-Dimer 1.21 H (<0.60) mg/L FEU ABG pH (7.35-7.45) ABG pCO2 (35-45) mmHg ABG HCO3 (21-25) mmol/L ABG Total CO2 (19-24) mmol/L ABG O2 Saturation (94-97) % Chloride 110 H (98-107) mmol/L Glucose 143 H (74-99) mg/dL POC Glucose (mg/dL) (75-99) mg/dL AST 12 L (17-59) U/L Total Protein 4.8 L (6.3-8.2) g/dL Albumin 2.0 L (3.5-5.0) g/dL 05/30/21 05/30/21 Range/Units 05:47 05:49 RBC (4.30-5.90) m/uL Hgb (13.0-17.5) gm/dL Hct (39.0-53.0) % Plt Count (150-450) k/uL Neutrophils # (1.3-7.7) k/uL Lymphocytes # (1.0-4.8) k/uL D-Dimer (<0.60) mg/L FEU ABG pH 7.33 L (7.35-7.45) ABG pCO2 55 H (35-45) mmHg ABG HCO3 29 H (21-25) mmol/L ABG Total CO2 31 H (19-24) mmol/L ABG O2 Saturation 98.1 H (94-97) % Chloride (98-107) mmol/L Glucose (74-99) mg/dL POC Glucose (mg/dL) 138 H (75-99) mg/dL AST (17-59) U/L Total Protein (6.3-8.2) g/dL Albumin (3.5-5.0) g/dL Microbiology - Last 24 Hours (Table) 05/28/21 10:28 Blood Culture - Preliminary Blood No Growth after 24 hours Assessment and Plan Assessment: Assessment #1 acute hypoxic respiratory failure #2 COVID-19 pneumonia #3 change in mental status #4 sinus bradycardia of unknown etiology #5 coronary artery disease #6 multiple comorbid conditions Plan #1 the patient off dopamine but currently on small dose of norepinephrine #2 address the thyroid abnormalities by the primary care team #3 the echo was done and showed normal left ventricle systolic function #4 avoid any AV sherri mikaela agents #5 follow-up with the patient on when necessary case
--- NOTE | 2021-05-30 08:25 | XR ---
EXAMINATION TYPE: XR chest 1V portable DATE OF EXAM: 05/30/2021 Comparison: 05/29/2021 Clinical History: 70-year-old male follow-up covid Findings: Tracheostomy cannula. Suboptimal patient positioning semiupright with leftward rotation and chest vicki ged in piecemeal. Right CVC tip in the upper right atrium. Heart normal size. Hyperinflation. Continu ed layering small to moderate effusions with patchy mid and lower lung opacities. Effusions may be sl ightly increased. Convexity marginated edges are now noted at the bilateral apices. Findings could be projectional. Impression: 1. Limited, portable exam. There are curvilinear edge is now seen at the bilateral apices that could be projectional artifact. Recommend follow-up with improved positioning to exclude trace new biapical pneumothoraces. 2. COPD. 3. Increase in [id number] bilateral pleural effusions. Continued patchy mid and lower lung COV ID infiltrates.
[2021-05-30] MEDS: ENOXAPARIN 40 MG/0.4 ML SYRINGE SQ SCH (08:55)
[2021-05-30] MEDS: OLANZapine ODT 5 MG TAB PO SCH (08:55)
[2021-05-30] MEDS: NYSTATIN 100,000 UNIT/ML SUSP 500,000 UNIT/5 ML CUP PO SCH ×4 (08:55→21:49)
[2021-05-30] MEDS: FOLIC ACID 1 MG TAB PO SCH (08:55)
[2021-05-30] MEDS: FERROUS SULFATE 325 MG TAB PO SCH (08:55)
[2021-05-30] MEDS: PANTOPRAZOLE 40 MG/10 ML VIAL IVP SCH (08:55)
--- NOTE | 2021-05-30 11:15 | P.PN ---
Subjective Progress Note Date: 05/30/21 The patient is seen today 05/30/2021 in follow-up in the intensive care unit. He was admitted back on 05/17/2021 with COVID-19 pneumonia. He was subsequently intubated and placed on mechanical ventilator. He had failed to progress and had undergone tracheostomy and PEG tube placements on 05/26/2021. He has not made much progress. He is currently on the ventilator at assist control with a rate of 30, tidal 150, FiO2 40% and a PEEP of 5. Morning blood gases reveal a P O2 of 102, pCO2 55, pH 7.33. He is sedated on propofol at 40 mcg/kg/m. He is requiring norepinephrine at 2 mcg/m. He has D5.45 normal saline at 75 ML's per hour. Pneumovax is currently off. He is being nourished with Nepro at 22 ML's per hour which is goal. Chest x-ray is limited. There is evidence of COPD. Xagon-de-mgpizjqn bilateral pleural effusions. Continued patchy mid and lower lung, but infiltrates. We'll culture positive for E. coli. Follow-up blood cultures revealing no growth. White count 9.9. Hemoglobin 9.8. D-dimer 1.21. Sodium 140. Potassium 4.3. Creatinine 1.21. Glucose 143. AST 12. ALT 8. He is continued on Solu-Cortef, admitted during, Lovenox, antibiotics in the form of meropenem. He is in a positive balance of 615 ML's. Objective - Vital Signs Vital signs: Vital Signs Temp 97.6 F 05/30/21 08:00 Pulse 52 L 05/30/21 10:30 Resp 31 H 05/30/21 10:30 BP 97/51 05/30/21 10:00 Pulse Ox 100 05/30/21 10:30 Intake & Output 05/29/21 05/30/21 05/30/21 18:59 06:59 18:59 Intake Total 9.054 1819.450 602.971 Output Total 1070 855 220 Balance 959.054 964.450 382.971 Weight 84.8 kg 84.8 kg Intake: IV 1176 1078 392 0.9 NaCl- 240 220 80 Dextrose 5% in Water 1, 900 825 300 000 ml @ 75 mls/hr IV . [id number] [facility] Rx#:[id number] pressure bag 36 33 12 Intake, IV Titration 483.054 379.450 106.971 Amount Cisatracurium 200 mg In 81.983 163.593 106.971 Sodium Chloride 0.9% 180 ml @ 2 MCG/KG/MIN 8.964 mls/hr IV .[id number] [facility] Rx #:[id number] Norepinephrine 4 mg In 301.071 33.787 Sodium Chloride 0.9% 250 ml @ 0.05 MCG/KG/MIN 13. 697 mls/hr IV .[id number] [facility] Rx#:[id number] propofoL 1,000 mg In 100 182.07 Empty Bag 1 bag @ Titrate IV .Q0M [facility] Rx#: [id number] Tube Feeding 220 242 44 Other 150 120 60 Output: Urine 1070 855 220 Other: Voiding Method Indwelling Catheter Indwelling Catheter ABP, PAP, CO, CI - Last Documented Arterial Blood Pressure 108/44 - Exam GENERAL EXAM: Sedated, on the mechanical ventilator, frail 70-year-old gentleman. HEAD: Normocephalic. EYES: Normal reaction of pupils, equal size. NOSE: Clear with pink turbinates. THROAT: No erythema or exudates. NECK: Tracheostomy tube secured in place. No masses, no JVD. CHEST: No chest wall deformity. LUNGS: Equal air entry with crackles in the posterior bases. CVS: S1 and S2 normal with no audible murmur, regular rhythm. ABDOMEN: PEG tube exit site clean and dry. No hepatosplenomegaly, normal bowel sounds, no guarding or rigidity. SPINE: No scoliosis or deformity SKIN: No rashes CENTRAL NERVOUS SYSTEM: Sedated, tone is normal in all 4 extremities. EXTREMITIES: There is trace peripheral edema. No clubbing, no cyanosis. Peripheral pulses are intact. - Labs CBC & Chem 7: 05/30/21 03:45 05/30/21 03:45 Labs: Abnormal Lab Results - Last 24 Hours (Table) 05/29/21 05/29/21 05/29/21 Range/Units 17:28 18:22 23:34 RBC (4.30-5.90) m/uL Hgb (13.0-17.5) gm/dL Hct (39.0-53.0) % Plt Count (150-450) k/uL Neutrophils # (1.3-7.7) k/uL Lymphocytes # (1.0-4.8) k/uL D-Dimer (<0.60) mg/L FEU ABG pH (7.35-7.45) ABG pCO2 (35-45) mmHg ABG HCO3 (21-25) mmol/L ABG Total CO2 (19-24) mmol/L ABG O2 Saturation (94-97) % Chloride (98-107) mmol/L Glucose (74-99) mg/dL POC Glucose (mg/dL) 143 H 147 H 151 H (75-99) mg/dL AST (17-59) U/L Total Protein (6.3-8.2) g/dL Albumin (3.5-5.0) g/dL 05/30/21 05/30/21 05/30/21 Range/Units 03:45 03:45 03:45 RBC 3.08 L (4.30-5.90) m/uL Hgb 9.8 L (13.0-17.5) gm/dL Hct 30.5 L (39.0-53.0) % Plt Count 459 H (150-450) k/uL Neutrophils # 9.3 H (1.3-7.7) k/uL Lymphocytes # 0.3 L (1.0-4.8) k/uL D-Dimer 1.21 H (<0.60) mg/L FEU ABG pH (7.35-7.45) ABG pCO2 (35-45) mmHg ABG HCO3 (21-25) mmol/L ABG Total CO2 (19-24) mmol/L ABG O2 Saturation (94-97) % Chloride 110 H (98-107) mmol/L Glucose 143 H (74-99) mg/dL POC Glucose (mg/dL) (75-99) mg/dL AST 12 L (17-59) U/L Total Protein 4.8 L (6.3-8.2) g/dL Albumin 2.0 L (3.5-5.0) g/dL 05/30/21 05/30/21 Range/Units 05:47 05:49 RBC (4.30-5.90) m/uL Hgb (13.0-17.5) gm/dL Hct (39.0-53.0) % Plt Count (150-450) k/uL Neutrophils # (1.3-7.7) k/uL Lymphocytes # (1.0-4.8) k/uL D-Dimer (<0.60) mg/L FEU ABG pH 7.33 L (7.35-7.45) ABG pCO2 55 H (35-45) mmHg ABG HCO3 29 H (21-25) mmol/L ABG Total CO2 31 H (19-24) mmol/L ABG O2 Saturation 98.1 H (94-97) % Chloride (98-107) mmol/L Glucose (74-99) mg/dL POC Glucose (mg/dL) 138 H (75-99) mg/dL AST (17-59) U/L Total Protein (6.3-8.2) g/dL Albumin (3.5-5.0) g/dL Microbiology - Last 24 Hours (Table) 05/28/21 10:28 Blood Culture - Preliminary Blood No Growth after 24 hours Assessment and Plan Assessment: 1 Acute hypoxic respiratory failure related to acute COVID-19 pneumonia, and possibility of bacterial infection/aspiration related pneumonia is not entirely excluded, sputum culture showed ESBL E. coli, and patient will be covered with meropenem. ID service is on the case. Patient was brought into the emergency department on 05/17/2021 per EMS, patient is a poor historian, reportedly has history of bipolar disease and dementia. Came in primarily for evaluation of altered mental status. Transferred from [place] emergency department for COVID-19 related pneumonia. The patient was taken to the hospital in [place] 4 days prior to this admission and the symptom onset was probably even prior to that. Exact onset of symptoms is not known. Patient was transferred to the intensive care unit on 05/19/2021 for worsening hypoxia, and hypercapnia, and altered mental status, and was intubated on 05/19/2021 on assist control mode of ventilation with a rate of 30, tidal on his 300, FiO2 50% and PEEP of 10. Patient had tolerated pressure support trials, and was extubated on 05/24/2021 however failed and was reintubated on 05/25/2021. He did undergo tracheostomy and PEG tube placements on 05/26/2021. 2 Acute hypercapnic respiratory failure, related to acute aspiration, and possible COVID-19 pneumonia, requiring intubation and mechanical ventilator support 3 Hypotension, related to dehydration, and possibility of septic shock. Patient remains on norepinephrine for vasopressor support, serum cortisol level was only 7, stress dose hydrocortisone was started, and is currently at 50 mg every 8 hours 4 Altered mental status with worsened from baseline 5 History of dementia and schizoaffective disorder 6 Acute dehydration and hypernatremia, on the D5W at 100 ML per hour, improving 7 Chronic stage 3 kidney disease 8 COPD 9 History of coronary artery disease 10 GERD/reflux 11 Hyperlipidemia 12 Acute kidney injury related to ATN, and dehydration, patient continues on IV hydration and continues to receive fluid boluses 13 Hyperkalemia related to [place], resolved 14 Hypoglcemia, recovered and back on tube feeds. Blood sugars improved Plan: The patient was seen and evaluated today Chest x-ray, blood gases and labs reviewed Continued on meropenem Continue the current treatment plan for now Overall prognosis remains quite poor Dr. Montes did speak with the patient's daughter yesterday in detail He is a DO NOT RESUSCITATE/DO NOT INTUBATE CODE STATUS We will continue with full supportive care We will continue to follow make further recommendations based on his clinical status Critical care time 38 minutes I, the cosigning physician, performed a history & physical examination of the patient. Lungs sounds crackles in the bilateral bases. Maintaining O2 saturations in the 90s on 40% FiO2 and a PEEP of 5 via the mechanical ventilator. I discussed the assessment and plan of care with my nurse practitioner, Maya Rivers. I attest to the above note as dictated by her.
[2021-05-30 11:54] LABS: Glucose,Whole Blood 124 mg/dL (75-99)
--- NOTE | 2021-05-30 14:28 | P.PN ---
Subjective Progress Note Date: 05/30/21 CHIEF COMPLAINT: COVID-19 pneumonia HISTORY OF PRESENT ILLNESS: Patient is in the ICU intubated and sedated. Patient is status post PEG tube and tracheostomy placement on 05/26/21. Patient was noted to have a small cuff leak. His tidal volumes have been stable. Patient is tolerating tube feeds. He is requiring norepinephrine. hypothermic. Bradycardic. CODE STATUS no code. Patient seen and examined with Dr. bill PHYSICAL EXAM: VITAL SIGNS: Reviewed. GENERAL: no acute distress. HEENT: Moist buccal mucosa. Head is atraumatic, normocephalic. Tracheostomy site small cuff leak ABDOMEN: Soft. Nondistended. PEG tube site clean dry and intact NEUROLOGIC: Intubated and sedated ASSESSMENT: 1. Acute hypoxic respiratory failure secondary to COVID-19 pneumonia with mechanical ventilation and difficulty weaning from the vent status post tracheostomy placement 2. Severe protein calorie malnutrition status post PEG tube placement PLAN: -Continue titrate to feedings per dietitian recommendations -Continue to monitor cuff leak at tracheostomy site -Continue supportive care -Continue ICU management Physician Inside Sales Specialist note has been reviewed by physician. Signing provider agrees with the documented findings, assessment, and plan of care. Objective - Vital Signs Vital signs: Vital Signs Temp 95.9 F L 05/30/21 12:00 Pulse 49 L 05/30/21 13:00 Resp 31 H 05/30/21 13:00 BP 104/53 05/30/21 13:00 Pulse Ox 100 05/30/21 13:00 Intake & Output 05/29/21 05/30/21 05/30/21 18:59 06:59 18:59 Intake Total 2029.054 0049.890 4428.971 Output Total 1070 855 670 Balance 959.054 964.450 352.971 Weight 84.8 kg 84.8 kg Intake: IV 1176 1078 686 0.9 NaCl- 240 220 140 Dextrose 5% in Water 1, 900 825 525 000 ml @ 75 mls/hr IV . [id number] [facility] Rx#:[id number] pressure bag 36 33 21 Intake, IV Titration 483.054 379.450 106.971 Amount Cisatracurium 200 mg In 81.983 163.593 106.971 Sodium Chloride 0.9% 180 ml @ 2 MCG/KG/MIN 8.964 mls/hr IV .[id number] [facility] Rx #:[id number] Norepinephrine 4 mg In 301.071 33.787 Sodium Chloride 0.9% 250 ml @ 0.05 MCG/KG/MIN 13. 697 mls/hr IV .[id number] [facility] Rx#:[id number] propofoL 1,000 mg In 100 182.07 Empty Bag 1 bag @ Titrate IV .Q0M [facility] Rx#: [id number] Tube Feeding 220 242 110 Other 150 120 120 Output: Urine 1070 855 670 Other: Voiding Method Indwelling Catheter Indwelling Catheter Indwelling Catheter ABP, PAP, CO, CI - Last Documented Arterial Blood Pressure 109/48 - Labs CBC & Chem 7: 05/30/21 03:45 05/30/21 03:45 Labs: Abnormal Lab Results - Last 24 Hours (Table) 05/29/21 05/29/21 05/29/21 Range/Units 17:28 18:22 23:34 RBC (4.30-5.90) m/uL Hgb (13.0-17.5) gm/dL Hct (39.0-53.0) % Plt Count (150-450) k/uL Neutrophils # (1.3-7.7) k/uL Lymphocytes # (1.0-4.8) k/uL D-Dimer (<0.60) mg/L FEU ABG pH (7.35-7.45) ABG pCO2 (35-45) mmHg ABG HCO3 (21-25) mmol/L ABG Total CO2 (19-24) mmol/L ABG O2 Saturation (94-97) % Chloride (98-107) mmol/L Glucose (74-99) mg/dL POC Glucose (mg/dL) 143 H 147 H 151 H (75-99) mg/dL AST (17-59) U/L Total Protein (6.3-8.2) g/dL Albumin (3.5-5.0) g/dL 05/30/21 05/30/21 05/30/21 Range/Units 03:45 03:45 03:45 RBC 3.08 L (4.30-5.90) m/uL Hgb 9.8 L (13.0-17.5) gm/dL Hct 30.5 L (39.0-53.0) % Plt Count 459 H (150-450) k/uL Neutrophils # 9.3 H (1.3-7.7) k/uL Lymphocytes # 0.3 L (1.0-4.8) k/uL D-Dimer 1.21 H (<0.60) mg/L FEU ABG pH (7.35-7.45) ABG pCO2 (35-45) mmHg ABG HCO3 (21-25) mmol/L ABG Total CO2 (19-24) mmol/L ABG O2 Saturation (94-97) % Chloride 110 H (98-107) mmol/L Glucose 143 H (74-99) mg/dL POC Glucose (mg/dL) (75-99) mg/dL AST 12 L (17-59) U/L Total Protein 4.8 L (6.3-8.2) g/dL Albumin 2.0 L (3.5-5.0) g/dL 05/30/21 05/30/21 05/30/21 Range/Units 05:47 05:49 11:52 RBC (4.30-5.90) m/uL Hgb (13.0-17.5) gm/dL Hct (39.0-53.0) % Plt Count (150-450) k/uL Neutrophils # (1.3-7.7) k/uL Lymphocytes # (1.0-4.8) k/uL D-Dimer (<0.60) mg/L FEU ABG pH 7.33 L (7.35-7.45) ABG pCO2 55 H (35-45) mmHg ABG HCO3 29 H (21-25) mmol/L ABG Total CO2 31 H (19-24) mmol/L ABG O2 Saturation 98.1 H (94-97) % Chloride (98-107) mmol/L Glucose (74-99) mg/dL POC Glucose (mg/dL) 138 H 124 H (75-99) mg/dL AST (17-59) U/L Total Protein (6.3-8.2) g/dL Albumin (3.5-5.0) g/dL Microbiology - Last 24 Hours (Table) 05/28/21 10:28 Blood Culture - Preliminary Blood No Growth after 48 hours
--- NOTE | 2021-05-30 15:14 | P.PN ---
Subjective Progress Note Date: 05/30/21 Principal diagnosis: COVID-19 pneumonia Interval history: Patient is a 70-year-old male presented to the hospital with acute respiratory failure in this but have a evidence of multifocal pneumonia secondary to COVID-19. Patient did have worsening of his respiratory status requiring intubation on 05/19/2021, patient has been extubated on 05/24/2021 however the patient did have worsening of his respiratory status and inability intubated night of 05/24/2021, patient is status post trach and PEG on 05/26/2021 On today's evaluation that is 05/30/2021, The patient is mildly hypothermic, however is hemodynamically stable , no significant purulent secretions from the ET or diarrhea has been reported by the nursing staff, patient remains to be unresponsive Objective - Vital Signs Vital signs: Vital Signs Temp 95.9 F L 05/30/21 12:00 Pulse 49 L 05/30/21 13:00 Resp 31 H 05/30/21 13:00 BP 104/53 05/30/21 13:00 Pulse Ox 100 05/30/21 13:00 Intake & Output 05/29/21 05/30/21 05/30/21 18:59 06:59 18:59 Intake Total 2029.054 0132.586 4540.971 Output Total 1070 855 670 Balance 959.054 964.450 352.971 Weight 84.8 kg 84.8 kg Intake: IV 1176 1078 686 0.9 NaCl- 240 220 140 Dextrose 5% in Water 1, 900 825 525 000 ml @ 75 mls/hr IV . [id number] [facility] Rx#:[id number] pressure bag 36 33 21 Intake, IV Titration 483.054 379.450 106.971 Amount Cisatracurium 200 mg In 81.983 163.593 106.971 Sodium Chloride 0.9% 180 ml @ 2 MCG/KG/MIN 8.964 mls/hr IV .[id number] [facility] Rx #:[id number] Norepinephrine 4 mg In 301.071 33.787 Sodium Chloride 0.9% 250 ml @ 0.05 MCG/KG/MIN 13. 697 mls/hr IV .[id number] [facility] Rx#:[id number] propofoL 1,000 mg In 100 182.07 Empty Bag 1 bag @ Titrate IV .Q0M [facility] Rx#: [id number] Tube Feeding 220 242 110 Other 150 120 120 Output: Urine 1070 855 670 Other: Voiding Method Indwelling Catheter Indwelling Catheter Indwelling Catheter ABP, PAP, CO, CI - Last Documented Arterial Blood Pressure 109/48 - Exam General description is an elderly male intubated on the vent Respiratory system:Unlabored breathing, decreased intensity in breath sounds. Heart S1, S2. Regular rate and rhythm. Abdomen soft, no tenderness. Extremities: No edema feet - Labs CBC & Chem 7: 05/30/21 03:45 05/30/21 03:45 Labs: Abnormal Lab Results - Last 24 Hours (Table) 05/29/21 05/29/21 05/29/21 Range/Units 17:28 18:22 23:34 RBC (4.30-5.90) m/uL Hgb (13.0-17.5) gm/dL Hct (39.0-53.0) % Plt Count (150-450) k/uL Neutrophils # (1.3-7.7) k/uL Lymphocytes # (1.0-4.8) k/uL D-Dimer (<0.60) mg/L FEU ABG pH (7.35-7.45) ABG pCO2 (35-45) mmHg ABG HCO3 (21-25) mmol/L ABG Total CO2 (19-24) mmol/L ABG O2 Saturation (94-97) % Chloride (98-107) mmol/L Glucose (74-99) mg/dL POC Glucose (mg/dL) 143 H 147 H 151 H (75-99) mg/dL AST (17-59) U/L Total Protein (6.3-8.2) g/dL Albumin (3.5-5.0) g/dL 05/30/21 05/30/21 05/30/21 Range/Units 03:45 03:45 03:45 RBC 3.08 L (4.30-5.90) m/uL Hgb 9.8 L (13.0-17.5) gm/dL Hct 30.5 L (39.0-53.0) % Plt Count 459 H (150-450) k/uL Neutrophils # 9.3 H (1.3-7.7) k/uL Lymphocytes # 0.3 L (1.0-4.8) k/uL D-Dimer 1.21 H (<0.60) mg/L FEU ABG pH (7.35-7.45) ABG pCO2 (35-45) mmHg ABG HCO3 (21-25) mmol/L ABG Total CO2 (19-24) mmol/L ABG O2 Saturation (94-97) % Chloride 110 H (98-107) mmol/L Glucose 143 H (74-99) mg/dL POC Glucose (mg/dL) (75-99) mg/dL AST 12 L (17-59) U/L Total Protein 4.8 L (6.3-8.2) g/dL Albumin 2.0 L (3.5-5.0) g/dL 05/30/21 05/30/21 05/30/21 Range/Units 05:47 05:49 11:52 RBC (4.30-5.90) m/uL Hgb (13.0-17.5) gm/dL Hct (39.0-53.0) % Plt Count (150-450) k/uL Neutrophils # (1.3-7.7) k/uL Lymphocytes # (1.0-4.8) k/uL D-Dimer (<0.60) mg/L FEU ABG pH 7.33 L (7.35-7.45) ABG pCO2 55 H (35-45) mmHg ABG HCO3 29 H (21-25) mmol/L ABG Total CO2 31 H (19-24) mmol/L ABG O2 Saturation 98.1 H (94-97) % Chloride (98-107) mmol/L Glucose (74-99) mg/dL POC Glucose (mg/dL) 138 H 124 H (75-99) mg/dL AST (17-59) U/L Total Protein (6.3-8.2) g/dL Albumin (3.5-5.0) g/dL Microbiology - Last 24 Hours (Table) 05/28/21 10:28 Blood Culture - Preliminary Blood No Growth after 48 hours Assessment and Plan (1) Aspiration pneumonia Current Visit: Yes Status: Acute Code(s): J69.0 - PNEUMONITIS DUE TO INHALATION OF FOOD AND VOMIT SNOMED Code(s): 949025844 (2) COVID-19 Current Visit: Yes Status: Acute Code(s): U07.1 - COVID-19 SNOMED Code(s): 215260892 Plan: Patient with acute respiratory failure which is multifactorial in this patient with initial diagnosis of COVID-19 pneumonia in this patient did have significant worsening of his respiratory status requiring intubation and concern for possible aspiration pneumonitis, patient's sputum has been finalized with ESBL E. coli, patient is currently on Depakote contraindicating the use of meropenem/Invanz, patient was started on Avycaz however antibiotic has been switched over to meropenem per pulmonary, we will decrease the dose to 1 g every 8 hours and monitor clinical course closely Time with Patient: Less than 30
[2021-05-30 18:13] LABS: Glucose,Whole Blood 99 mg/dL (75-99)
[2021-05-30] MEDS: NOREPINEPHRINE 4 MG in SODIUM CHLORIDE 0.9% 250 ML IV SCH (21:09)
[2021-05-30] MEDS: OLANZapine ODT 10 MG TAB PO SCH (21:49)
[2021-05-30] MEDS: ATORVASTATIN 20 MG TAB PO SCH (21:49)
[2021-05-30 21:56] LABS: C Reactive Protein 5.5 mg/dL (0.00-0.80)
[2021-05-30] MEDS: MEROPENEM 1 GM in SODIUM CHLORIDE 0.9% 100 ML IVPB SCH (23:10)
[2021-05-30 23:23] LABS: Glucose,Whole Blood 115 mg/dL (75-99)
--- NOTE | 2021-05-30 23:43 | XR ---
EXAMINATION TYPE: XR chest 1V portable DATE OF EXAM: 05/30/2021 COMPARISON: Today HISTORY: Respiratory failure TECHNIQUE: Single view FINDINGS: There is pulmonary interstitial and airspace edema. There is tracheostomy tube. There is bl unting of the costophrenic angles. Bony thorax is intact. There are chest leads. IMPRESSION: There is pulmonary edema and pleural fluid slightly increased compared to exam this morni ng. This could be heart failure or RDS.
--- NOTE | 2021-05-31 00:40 | P.PN ---
Subjective Progress Note Date: 05/30/21 This is a 70-year-old male who was recently admitted with change in mental status and fall and also shortness of breath and acute COVID-19 pneumonia and being closely monitored. Patient was continued on high flow oxygen although respiratory status continued to deteriorate and an A team was called. Patient was brought to the ICU for close monitoring and x-ray showed some bilateral lower lobe pneumonia which appears unchanged compared to recent exam with no obvious heart failure. Patient was placed on mechanical vent and intubated and sedated and is being closely monitored. Multiple medical consultations including pulmonary and infectious disease following closely. 05/20/2021 Patient is seen in follow-up activity is to be closely monitored in the ICU. Blood pressure and heart rate has been extremely variable and patient is maintained on D10 in water along with norepinephrine and will continue. Pulmonary and infectious disease following closely. Patient continues with worsening kidney functions nephrology consulted and patient is being given a liter bolus for hypotension and repeat sodium level ordered. Patient also continues on Zosyn and ID following closely. Patient continues with low blood sugar readings as well and we'll continue D10 and close glucose monitoring. Chest x-ray shows some improvement in bibasilar infiltrates more so on the right and possibly developing small right pleural effusion. 05/21/2021 Patient is seen and evaluated this morning continues to be in the ICU with multiple medical consultations following. Patient is continued on IV antibiotics with ID following. Cultures continue to be negative and WBC is 8.5. Patient did have low grade temp today. Patient continues on mechanical vent and sedated. Chest xray similar to previous exam and will continue to monitor. Prognosis remains guarded. Patient also continued on norepinephrine. 05/22/2021 Patient is seen and evaluated today continues to be on mechanical vent with an FiO2 of 40% PEEP is 5. Patient continuing with weaning trials and assist mode on mechanical vent although patient continues to not follow commands per nursing staff. Per pulmonary filling and stapling machine operator continued attempts at weaning. Chest x-ray shows chronic emphysematous changes and pulmonary fibrosis with moderate bilater al pleural effusions and bilateral multifocal increased opacification consistent with COVID-19 infection are all redemonstrated with no significant change from yesterday. Sputum culture finalized showing Romelia species not albicans, glabrata along with Romelia albicans and infectious disease is following. Patient continues on IV antibiotics in the form of Zosyn. Patient is currently off norepinephrine and receiving Solu-Cortef along with valproic acid and Depakote. Patient is continued on Lovenox for DVT prophylaxis. Patient also continues on D5 in water at 100 mL per hour. Blood gases are improving and pulmonary discussing possible extubation. 05/23/2021 Patient is seen this morning continues to be on mechanical vent with an FiO2 of 40 and a PEEP of 5 with continued weaning trials. Patient is off sedation and does open eyes to verbal stimuli although does not follow commands. Chest x-ray today shows chronic emphysematous and pulmonary fibrotic changes with small size bilateral pleural effusions and bilateral multifocal increased opacification is consistent with COVID-19 infection are again redemonstrated with no significant change from previous. General surgery consulted for possible trach and peg tube placement. 05/24/2021 Patient with spontaneous eye opening during assessment, eyes are tracking, however when asked to squeeze fingers patient unable to do so and did not wiggle toes when asked. He was not responsive to commands or yes or no questions. Continues in the ICU on 5L NC with an oxygen saturation of 91%. He is afebrile, Heart rate is in the 40-50's dropping into the mid 30's. Unclear whether patient is in a heart block, nurse reports HR of 30's seems to be when he is sleeping. EKG will try to be obtained when he is in the 30's. Respirations are 23, blood pressure 135/55. Chest xray today remains unchanged. Possible trach and PEG tube wednesday if needed. Labs today show WBC 7.0, hgb 9.1, D-dimer 0.86, sodium 142, potassium 3.6, BUN 33, creatinine 1.28, glucose in the 130s, calcium 7.8, CRP 1.7, total protein 4.6, albumin 2.0. Multiple consultations. Prognosis remains guarded. 05/25/2021 Throughout the evening patient desaturated and his blood pressure was dropping while on the levophed and his heart rate was increasing and then once he was off the levophed his heart rate was increasing and his blood pressure was dropping. Patient was reintubated with an Fi02 of 60%. Blood gases at the time showed a pCO2 of greater than 120, pH 6.97, pO2 170, total oxygen saturation 98. Oxygen saturations 98%, he is afebrile, pulse rate 43 appears sinus bradycardia on EKG that was obtained midmorning. Blood pressure 135/75. Blood gases have improved with a pH now 7.30, pCO2 57, pO2 57, HCO3 28, total CO2 30 and O2 saturation 87.5. Sodium 140, potassium 3.7, chloride 109, CO2 28, BUN 27, creatinine 1.36, blood glucose 120, calcium 8.1, AST 27, ALT 19, LDH 585, CRP 1.9. Chest x-ray today shows as based consolidation atelectasis and volume loss in the right hemithorax which is slightly compared to exam yesterday. Has pulmonary interstitial edema on the left side without change. Plan is for a PEG, trach tomorrow. Cardiology was consulted and started patient on a dopamine infusion. Patient is on D5 water at 75 mL per hour, levophed infusing, propofol, on IV Zosyn and IV valproic acid. Labs initial white count 13, hemoglobin 10.7, d- dimer 1.84. 05/26/2021 Patient is seen today in follow up in the ICU being closely monitored. Multiple medical consultations following along with general surgery and is scheduled for peg and trach placement today. Tube feedings on hold. Patient continues on mechanical vent and FI02 is 50% peep is 5. Chest xray today shows COPD right greater than left with covid infiltrates and aeration improving now on the right. Potassium is 3.2 and being replaced. Lovenox on hold for the procedure as well. 05/27/2021 Patient is seen in follow-up in the ICU with multiple medical consultations following. Patient is status post PEG and trach placement and will be initiating tube feeds once cleared by surgery. Sputum culture finalized showing E. coli with ESBL and resistance and infectious disease is following. Patient was continued on dopamine along with Levophed and attempting to wean per nursing staff. Patient also continues in D5 water with nephrology following closely. Patient is on IV Zosyn along with nystatin and will continue. Chest x-ray today shows stable portable chest with no evidence of pneumothorax and no change in bibasilar opacities. Patient continues on propofol and FiO2 is 50% with a PEEP of 5. Potassium found a 3.2 and replaced and will repeat labs. 05/28/2021 Patient is seen in follow-up this morning continues to be in the ICU with multiple medical consultations following. Patient is currently continued on mechanical vent via tracheostomy and FiO2 is 40% with a PEEP of 5. Patient is status post peg and trach and surgery following. Patient resumed on lovenox and tube feedings. Tolerating tube feedings thus far. Patient continues on levophed and off dopamine. Patient was on Midodrine and will resume along with his olanzapine and continue to monitor closely. Patient is maintained on Meropenem and ID following closely. Patient also continues on solu-cortef and d5 in water with nephrology following as well. 05/29/2021 Patient is seen and evaluated in follow-up today continues to be in the ICU under close observation with multiple medical consultations following. Patient continues on mechanical ventilation via tracheostomy and FiO2 is 40% and PEEP is 5. Chest xray today shows COPD with continued peripheral and basilar covid infiltrates, similar to slightly worsened from yesterday. Patient continues with sedation holidays to assess mentation although continues to not follow commands appropriately. Patient continues on Levophed as well. IV merrem to continue. 05/30/2021 Patient is seen this morning in the ICU with multiple medical consultations following. Patient continues on vent with an FI02 of 40% and peep is 5. Chest x-ray today shows a curvilinear edge that is now seen at the bilateral apices that could be projectional artifact and recommended follow-up with improved positioning to exclude trace of new biapical pneumothoraces, COPD, increase in small to moderate bilateral pleural effusions with continued patchy mid and low er lung Covid infiltrates. Patient continues on sedation and clinical staff pharmacist working on weaning. Patient will open eyes although not follow any commands. Continues on low dose levophed Review of systems: Unable to obtain as patient is mechanically intubated and sedated Labs: WBC is 9.9, hemoglobin is 9.8, platelets are 459, d-dimer is 1.21, sodium is 140, potassium is 4.3, BUN is 19, creatinine is 1.21, calcium is 8.5, LDH is 413 Active Medications Acetaminophen (Acetaminophen Tab 325 Mg Tab) 650 mg PO Q6HR PRN PRN Reason: Mild Pain or Fever > 100.5 Last Admin: 05/18/21 23:16 Dose: 650 mg Documented by: Albuterol Sulfate (Albuterol Hfa Inhaler) 2 puff INHALATION RT-QID [facility] Last Admin: 05/30/21 11:44 Dose: 2 puff Documented by: Artificial Tears (Artificial Tears-Hypromellose Drops 15 Ml Btl) 1 drops BOTH EYES Q4HR [facility] Last Admin: 05/30/21 14:43 Dose: Not Given Documented by: Atorvastatin Calcium (Atorvastatin 20 Mg Tab) 20 mg PO HS [facility] Last Admin: 05/29/21 21:19 Dose: 20 mg Documented by: Enoxaparin Sodium (Enoxaparin 40 Mg/0.4 Ml Syringe) 40 mg SQ DAILY [facility] Last Admin: 05/30/21 08:55 Dose: 40 mg Documented by: Ferrous Sulfate (Ferrous Sulfate 325 Mg Tab) 325 mg PO DAILY [facility] Last Admin: 05/30/21 08:55 Dose: 325 mg Documented by: Folic Acid (Folic Acid 1 Mg Tab) 1 mg PO DAILY [facility] Last Admin: 05/30/21 08:55 Dose: 1 mg Documented by: Hydrocortisone Sodium Succinate (Hydrocortisone Succinate 100 Mg/2 Ml Vial) 100 mg IV Q6HR [facility] Last Admin: 05/30/21 14:46 Dose: 100 mg Documented by: Dextrose/Water (Dextrose 5%-Water Iv Soln) 1,000 mls @ 75 mls/hr IV .[id number] [facility] Last Admin: 05/30/21 04:10 Dose: 75 mls/hr Documented by: Norepinephrine Bitartrate 4 mg (/ Sodium Chloride) 254 mls @ 13.697 mls/hr IV .[id number] [facility]; Protocol Last Titration: 05/30/21 08:00 Dose: 0.02 mcg/kg/min, 5.479 mls/hr Documented by: Propofol 1,000 mg/ IV Solution 100 mls @ 0 mls/hr IV .Q0M [facility]; Protocol Last Titration: 05/30/21 12:30 Dose: Infused Documented by: Meropenem 2 gm/ Sodium (Chloride) 100 mls @ 33.3 mls/hr IVPB Q8H [facility]; Protocol Last Admin: 05/30/21 14:46 Dose: 33.3 mls/hr Documented by: Cisatracurium Besylate 200 mg/ (Sodium Chloride) 200 mls @ 8.964 mls/hr IV .[id number] [facility]; Protocol Last Titration: 05/30/21 09:50 Dose: 0 mcg/kg/min, 0 mls/hr Documented by: Midodrine (Midodrine 5 Mg Tab) 10 mg PO AC-TID [facility] Last Admin: 05/30/21 14:46 Dose: 10 mg Documented by: Miscellaneous Information (Potassium Replacement Protocol 1 Each Misc) 1 each MISCELLANE DAILY PRN; Protocol PRN Reason: Per Protocol Nystatin (Nystatin 100,000 Unit/Ml Susp 500,000 Unit/5 Ml Cup) 500,000 unit PO QID [facility] Last Admin: 05/30/21 14:46 Dose: 500,000 unit Documented by: Olanzapine (Olanzapine Odt 5 Mg Tab) 5 mg PO DAILY [facility] Last Admin: 05/30/21 08:55 Dose: 5 mg Documented by: Olanzapine (Olanzapine Odt 10 Mg Tab) 20 mg PO HS [facility] Last Admin: 05/29/21 21:19 Dose: 20 mg Documented by: Pantoprazole Sodium (Pantoprazole 40 Mg/10 Ml Vial) 40 mg IVP DAILY [facility] Last Admin: 05/30/21 08:55 Dose: 40 mg Documented by: Physical Exam: Gen: this is a 70-year-old male currently sedated and intubated. 40% mechanical ventilation with a PEEP of 5 HEENT: Head is atraumatic, normocephalic. Pupils equal, round. Sclerae is anicteric. NECK: Supple. No JVD. No lymphadenopathy. No thyromegaly. LUNGS: Diminished breath sounds bilaterally with coarse rhonchi and crackles noted. No intercostal retractions. HEART: S1, S2 are muffled ABDOMEN: Soft. Bowel sounds are present. No masses. No tenderness. EXTREMITIES: No pedal edema. No calf tenderness. NEUROLOGICAL: Patient is currently intubated and sedated Assessment: Acute COVID-19 infection with acute COVID-19 bilateral interstitial pneumonia, r ight more than left with acute hypoxic respiratory failure, now requiring mechanical ventilation with extubation on 05/24/2021, and re-intubation on 05/25/2021 status post peg tube and tracheostomy placement Acute kidney injury secondary to acute tubular necrosis from septic shock Chronic kidney disease stage III secondary to nephrosclerosis Hypoglycemia, improved Change in mental status, metabolic encephalopathy, multifactorial Falling, gait dysfunction Anemia, normocytic anemia of undetermined significance Hypernatremia from poor oral intake Hyperkalemia secondary to acute kidney injury, resolved Elevated d-dimer history of coronary artery disease history of chronic obstructive pulmonary disease Gastroesophageal reflux disease history of bipolar, schizoaffective disorder and schizophrenia History of nicotine dependence Severe protein calorie malnutrition with a BMI of 19.1 No code Plan: Recommend to continue with current medications and follow along closely with multiple medical consultations. Prognosis remains extremely guarded with multiple complex medical issues noted. Patient is status post peg and trach placement and continues on mechanical vent. Sedated now with propofol although attempting sedation holiday to assess mentation and weaning. tube feedings being resumed and lovenox resumed. Recommend continue with current medications and patient has been maintained on IV antibiotics with infectious disease following.. Patient will continue on merrem . Chest x-ray reviewed as mentioned above. Recommend repeat labs in the morning along with chest xray. Nephrology following as well. Again due to multiple complex medical issues prognosis is quite guarded. Code status was addressed with guardian and patient was made No code. Objective - Vital Signs Vital signs: Vital Signs Temp 97.6 F 05/30/21 08:00 Pulse 59 L 05/30/21 08:00 Resp 30 H 05/30/21 08:00 BP 107/57 05/30/21 08:00 Pulse Ox 100 05/30/21 08:00 Intake & Output 05/29/21 05/30/21 05/30/21 18:59 06:59 18:59 Intake Total 2029.054 1819.450 402.152 Output Total 1070 855 220 Balance 959.054 964.450 182.152 Weight 84.8 kg Intake: IV 1176 1078 196 0.9 NaCl- 240 220 40 Dextrose 5% in Water 1, 900 825 150 000 ml @ 75 mls/hr IV . [id number] [facility] Rx#:[id number] pressure bag 36 33 6 Intake, IV Titration 483.054 379.450 102.152 Amount Cisatracurium 200 mg In 81.983 163.593 102.152 Sodium Chloride 0.9% 180 ml @ 2 MCG/KG/MIN 8.964 mls/hr IV .[id number] [facility] Rx #:[id number] Norepinephrine 4 mg In 301.071 33.787 Sodium Chloride 0.9% 250 ml @ 0.05 MCG/KG/MIN 13. 697 mls/hr IV .[id number] [facility] Rx#:[id number] propofoL 1,000 mg In 100 182.07 Empty Bag 1 bag @ Titrate IV .Q0M [facility] Rx#: [id number] Tube Feeding 220 242 44 Other 150 120 60 Output: Urine 1070 855 220 Other: Voiding Method Indwelling Catheter Indwelling Catheter ABP, PAP, CO, CI - Last Documented Arterial Blood Pressure 98/40 - Labs CBC & Chem 7: 05/30/21 03:45 05/30/21 03:45 Labs: Abnormal Lab Results - Last 24 Hours (Table) 05/29/21 05/29/21 05/29/21 Range/Units 17:28 18:22 23:34 RBC (4.30-5.90) m/uL Hgb (13.0-17.5) gm/dL Hct (39.0-53.0) % Plt Count (150-450) k/uL Neutrophils # (1.3-7.7) k/uL Lymphocytes # (1.0-4.8) k/uL D-Dimer (<0.60) mg/L FEU ABG pH (7.35-7.45) ABG pCO2 (35-45) mmHg ABG HCO3 (21-25) mmol/L ABG Total CO2 (19-24) mmol/L ABG O2 Saturation (94-97) % Chloride (98-107) mmol/L Glucose (74-99) mg/dL POC Glucose (mg/dL) 143 H 147 H 151 H (75-99) mg/dL AST (17-59) U/L Total Protein (6.3-8.2) g/dL Albumin (3.5-5.0) g/dL 05/30/21 05/30/21 05/30/21 Range/Units 03:45 03:45 03:45 RBC 3.08 L (4.30-5.90) m/uL Hgb 9.8 L (13.0-17.5) gm/dL Hct 30.5 L (39.0-53.0) % Plt Count 459 H (150-450) k/uL Neutrophils # 9.3 H (1.3-7.7) k/uL Lymphocytes # 0.3 L (1.0-4.8) k/uL D-Dimer 1.21 H (<0.60) mg/L FEU ABG pH (7.35-7.45) ABG pCO2 (35-45) mmHg ABG HCO3 (21-25) mmol/L ABG Total CO2 (19-24) mmol/L ABG O2 Saturation (94-97) % Chloride 110 H (98-107) mmol/L Glucose 143 H (74-99) mg/dL POC Glucose (mg/dL) (75-99) mg/dL AST 12 L (17-59) U/L Total Protein 4.8 L (6.3-8.2) g/dL Albumin 2.0 L (3.5-5.0) g/dL 05/30/21 05/30/21 Range/Units 05:47 05:49 RBC (4.30-5.90) m/uL Hgb (13.0-17.5) gm/dL Hct (39.0-53.0) % Plt Count (150-450) k/uL Neutrophils # (1.3-7.7) k/uL Lymphocytes # (1.0-4.8) k/uL D-Dimer (<0.60) mg/L FEU ABG pH 7.33 L (7.35-7.45) ABG pCO2 55 H (35-45) mmHg ABG HCO3 29 H (21-25) mmol/L ABG Total CO2 31 H (19-24) mmol/L ABG O2 Saturation 98.1 H (94-97) % Chloride (98-107) mmol/L Glucose (74-99) mg/dL POC Glucose (mg/dL) 138 H (75-99) mg/dL AST (17-59) U/L Total Protein (6.3-8.2) g/dL Albumin (3.5-5.0) g/dL Microbiology - Last 24 Hours (Table) 05/28/21 10:28 Blood Culture - Preliminary Blood No Growth after 24 hours
[2021-05-31] MEDS: CISATRACURIUM 200 MG in SODIUM CHLORIDE 0.9% 180 ML IV SCH (02:41)
[2021-05-31 03:59] LABS: Basophils % (A) 0 %; Eosinophils % (A) 0 %; HCT 29.6 % (39.0-53.0); HGB 9.3 gm/dL (13.0-17.5); Hypochromasia Slight; Lymphocytes # (A) 0.3 k/uL (1.0-4.8); Lymphocytes % (A) 3 %; MCH 30.8 pg (25.0-35.0); MCHC 31.3 g/dL (31.0-37.0); MCV 98.4 fL (80.0-100.0); Macrocytosis Slight; Monocytes # (A) 0.3 k/uL (0-1.0); Monocytes % (A) 3 %; Neutrophils # (A) 9.9 k/uL (1.3-7.7); Neutrophils % (A) 94 %; Platelet Count 579 k/uL (150-450); RBC 3.01 m/uL (4.30-5.90); RDW 15.4 % (11.5-15.5); WBC 10.6 k/uL (3.8-10.6)
[2021-05-31 04:12] LABS: Calcium 8.4 mg/dL (8.4-10.2); Total Bilirubin 0.2 mg/dL (0.2-1.3); Total Protein 4.7 g/dL (6.3-8.2)
[2021-05-31] MEDS: ARTIFICIAL TEARS-HYPROMELLOSE DROPS 15 ML BTL BOTH EYES SCH ×6 (04:43→23:54)
[2021-05-31 05:40] LABS: Glucose,Whole Blood 140 mg/dL (75-99)
[2021-05-31 06:31] LABS: ABG Base Excess 3.7 mmol/L; ABG HCO3 30 mmol/L (21-25); ABG Oxygen Saturation 97.4 % (94-97); ABG PCO2 60 mmHg (35-45); ABG PH 7.31 (7.35-7.45); ABG PO2 89 mmHg (83-108); ABG TCO2 32 mmol/L (19-24); Allen Test Performed? Yes
[2021-05-31] MEDS: HYDROCORTISONE SUCCINATE 100 MG/2 ML VIAL IV SCH ×4 (06:36→23:55)
[2021-05-31] MEDS: MEROPENEM 1 GM in SODIUM CHLORIDE 0.9% 100 ML IVPB SCH ×3 (06:36→22:05)
[2021-05-31] MEDS: MIDODRINE 5 MG TAB PO SCH ×3 (06:36→17:17)
--- NOTE | 2021-05-31 06:38 | XR ---
EXAMINATION TYPE: XR chest 1V portable DATE OF EXAM: 05/31/2021 COMPARISON: 05/30/2021 HISTORY: Covid pneumonia TECHNIQUE: Single frontal view of the chest is obtained. FINDINGS: There are a few small subpleural parenchymal opacities and mild to moderate interstitial i nfiltrate unchanged in the right lung but mildly decreased in the left lung.. Hemidiaphragms are obsc ured likely secondary to small pleural effusions. There is no pneumothorax. Heart size normal pulmona ry vasculature is not congested. No change in the right central venous catheter or tracheostomy tube. The osseous structures are intac t. IMPRESSION: Bilateral lung infiltrates is described above with suggestion of mild improvement in the left mid lower lung zone.
[2021-05-31] MEDS: ENOXAPARIN 40 MG/0.4 ML SYRINGE SQ SCH (08:34)
[2021-05-31] MEDS: NYSTATIN 100,000 UNIT/ML SUSP 500,000 UNIT/5 ML CUP PO SCH ×4 (08:34→21:10)
[2021-05-31] MEDS: OLANZapine ODT 5 MG TAB PO SCH (08:35)
[2021-05-31] MEDS: PANTOPRAZOLE 40 MG/10 ML VIAL IVP SCH (08:35)
[2021-05-31] MEDS: FOLIC ACID 1 MG TAB PO SCH (08:35)
[2021-05-31] MEDS: FERROUS SULFATE 325 MG TAB PO SCH (08:35)
[2021-05-31] MEDS: ALBUTEROL HFA INHALER INHALATION SCH ×4 (10:14→20:10)
--- NOTE | 2021-05-31 11:25 | P.PN ---
Subjective Progress Note Date: 05/31/21 The patient is seen today 05/30/2021 in follow-up in the intensive care unit. He was admitted back on 05/17/2021 with COVID-19 pneumonia. He was subsequently intubated and placed on mechanical ventilator. He had failed to progress and had undergone tracheostomy and PEG tube placements on 05/26/2021. He has not made much progress. He is currently on the ventilator at assist control with a rate of 30, tidal 150, FiO2 40% and a PEEP of 5. Morning blood gases reveal a P O2 of 102, pCO2 55, pH 7.33. He is sedated on propofol at 40 mcg/kg/m. He is requiring norepinephrine at 2 mcg/m. He has D5.45 normal saline at 75 ML's per hour. Pneumovax is currently off. He is being nourished with Nepro at 22 ML's per hour which is goal. Chest x-ray is limited. There is evidence of COPD. Rsgem-sz-[id number] bilateral pleural effusions. Continued patchy mid and lower lung, but infiltrates. We'll culture positive for E. coli. Follow-up blood cultures revealing no growth. White count 9.9. Hemoglobin 9.8. D-dimer 1.21. Sodium 140. Potassium 4.3. Creatinine 1.21. Glucose 143. AST 12. ALT 8. He is continued on Solu-Cortef, admitted during, Lovenox, antibiotics in the form of meropenem. He is in a positive balance of 615 ML's. The patient is seen today 05/31/2021 in follow-up in the intensive care unit. He remains on the mechanical ventilator via tracheostomy tube. Current settings are assist-control mode at a rate of 30, tight on 350, FiO2 50% and a PEEP of 5. Morning blood gases reveal a P O2 of 89, pCO2 60, pH 7.31. He remains sedated on propofol at 40 mcg/kg/m. Nimbex at 2 mcg/kg/m. D5W at 75 ML's per hour. He is being nourished with Nepro at 22 ML's per hour which is goal. His sputum was positive for E. coli. He remains on meropenem. Chest x-ray continues to show bilateral lung infiltrates with subpleural parenchymal opacities in mild to moderate interstitial infiltrates. Mild improvement in the left mid lower lung zone. White count 10.6. Hemoglobin 9.3. Sodium 139. Potassium 4.0. BUN 23. Creatinine 1.46. Glucose 126. AST 15. ALT 11. He is continued on Solu- Cortef. He's been able to remain off norepinephrine. He's been +1.7 L balance. Objective - Vital Signs Vital signs: Vital Signs Temp 96.6 F L 05/31/21 08:00 Pulse 38 L 05/31/21 11:00 Resp 29 H 05/31/21 11:00 BP 88/49 05/31/21 11:00 Pulse Ox 97 05/31/21 11:00 Intake & Output 05/30/21 05/31/21 05/31/21 18:59 06:59 18:59 Intake Total 4688.343 6576.632 662.894 Output Total 945 1060 810 Balance 943.079 769.632 -147.106 Weight 84.8 kg 86.9 kg Intake: IV 1176 1176 392 0.9 NaCl- 240 240 80 Dextrose 5% in Water 1, 900 900 300 000 ml @ 75 mls/hr IV . [id number] [facility] Rx#:[id number] pressure bag 36 36 12 Intake, IV Titration 334.079 335.632 204.894 Amount Cisatracurium 200 mg In 106.971 66.856 68.276 Sodium Chloride 0.9% 180 ml @ 2 MCG/KG/MIN 8.964 mls/hr IV .[id number] [facility] Rx #:[id number] Norepinephrine 4 mg In 127.108 127.987 36.618 Sodium Chloride 0.9% 250 ml @ 0.05 MCG/KG/MIN 13. 697 mls/hr IV .[id number] [facility] Rx#:[id number] propofoL 1,000 mg In 100 140.789 100 Empty Bag 1 bag @ Titrate IV .Q0M [facility] Rx#: [id number] Tube Feeding 198 198 66 Other 180 120 Output: Urine 945 1060 810 Other: Voiding Method Indwelling Catheter Indwelling Catheter Indwelling Catheter ABP, PAP, CO, CI - Last Documented Arterial Blood Pressure 132/50 - Exam GENERAL EXAM: Sedated, paralyzed, on the mechanical ventilator, frail 70-year-old gentleman. HEAD: Normocephalic. EYES: Normal reaction of pupils, equal size. NOSE: Clear with pink turbinates. THROAT: No erythema or exudates. NECK: Tracheostomy tube secured in place. No masses, no JVD. CHEST: No chest wall deformity. LUNGS: Equal air entry with crackles in the posterior bases. CVS: S1 and S2 normal with no audible murmur, regular rhythm. ABDOMEN: PEG tube exit site clean and dry. No hepatosplenomegaly, normal bowel sounds, no guarding or rigidity. SPINE: No scoliosis or deformity SKIN: No rashes CENTRAL NERVOUS SYSTEM: Sedated, paralyzed, tone is normal in all 4 extremities. EXTREMITIES: There is trace peripheral edema. No clubbing, no cyanosis. Peripheral pulses are intact. - Labs CBC & Chem 7: 05/31/21 03:45 05/31/21 03:45 Labs: Abnormal Lab Results - Last 24 Hours (Table) 05/30/21 05/30/21 05/30/21 Range/Units 03:45 11:52 23:22 RBC (4.30-5.90) m/uL Hgb (13.0-17.5) gm/dL Hct (39.0-53.0) % Plt Count (150-450) k/uL Neutrophils # (1.3-7.7) k/uL Lymphocytes # (1.0-4.8) k/uL ABG pH (7.35-7.45) ABG pCO2 (35-45) mmHg ABG HCO3 (21-25) mmol/L ABG Total CO2 (19-24) mmol/L ABG O2 Saturation (94-97) % Chloride (98-107) mmol/L BUN (9-20) mg/dL Creatinine (0.66-1.25) mg/dL Glucose (74-99) mg/dL POC Glucose (mg/dL) 124 H 115 H (75-99) mg/dL AST (17-59) U/L C-Reactive Protein 5.5 H (0.00-0.80) mg/dL Total Protein (6.3-8.2) g/dL Albumin (3.5-5.0) g/dL 05/31/21 05/31/21 05/31/21 Range/Units 03:45 03:45 05:38 RBC 3.01 L (4.30-5.90) m/uL Hgb 9.3 L (13.0-17.5) gm/dL Hct 29.6 L (39.0-53.0) % Plt Count 579 H (150-450) k/uL Neutrophils # 9.9 H (1.3-7.7) k/uL Lymphocytes # 0.3 L (1.0-4.8) k/uL ABG pH (7.35-7.45) ABG pCO2 (35-45) mmHg ABG HCO3 (21-25) mmol/L ABG Total CO2 (19-24) mmol/L ABG O2 Saturation (94-97) % Chloride 111 H (98-107) mmol/L BUN 23 H (9-20) mg/dL Creatinine 1.46 H (0.66-1.25) mg/dL Glucose 126 H (74-99) mg/dL POC Glucose (mg/dL) 140 H (75-99) mg/dL AST 15 L (17-59) U/L C-Reactive Protein (0.00-0.80) mg/dL Total Protein 4.7 L (6.3-8.2) g/dL Albumin 2.0 L (3.5-5.0) g/dL 05/31/21 Range/Units 06:25 RBC (4.30-5.90) m/uL Hgb (13.0-17.5) gm/dL Hct (39.0-53.0) % Plt Count (150-450) k/uL Neutrophils # (1.3-7.7) k/uL Lymphocytes # (1.0-4.8) k/uL ABG pH 7.31 L (7.35-7.45) ABG pCO2 60 H (35-45) mmHg ABG HCO3 30 H (21-25) mmol/L ABG Total CO2 32 H (19-24) mmol/L ABG O2 Saturation 97.4 H (94-97) % Chloride (98-107) mmol/L BUN (9-20) mg/dL Creatinine (0.66-1.25) mg/dL Glucose (74-99) mg/dL POC Glucose (mg/dL) (75-99) mg/dL AST (17-59) U/L C-Reactive Protein (0.00-0.80) mg/dL Total Protein (6.3-8.2) g/dL Albumin (3.5-5.0) g/dL Microbiology - Last 24 Hours (Table) 05/28/21 10:28 Blood Culture - Preliminary Blood No Growth after 48 hours Assessment and Plan Assessment: 1 Acute hypoxic respiratory failure related to acute COVID-19 pneumonia, and possibility of bacterial infection/aspiration related pneumonia is not entirely excluded, sputum culture showed ESBL E. coli, and patient is covered with meropenem. Patient was brought into the emergency department on 05/17/2021 per EMS, patient is a poor historian, reportedly has history of bipolar disease and dementia. Came in primarily for evaluation of altered mental status. Transferred from [place] emergency department for COVID-19 related pneumonia. The patient was taken to the hospital in [place] 4 days prior to this admission and the symptom onset was probably even prior to that. Exact onset of symptoms is not known. Patient was transferred to the intensive care unit on 05/19/2021 for worsening hypoxia, and hypercapnia, and altered mental status, and was intubated on 05/19/2021. Patient had tolerated pressure support trials, and was extubated on 05/24/2021 however failed and was reintubated on 05/25/2021. He did undergo tracheostomy and PEG tube placements on 05/26/2021. He is now a DO NOT RESUSCITATE/DO NOT INTUBATE CODE STATUS 2 Acute hypercapnic respiratory failure, related to acute aspiration, and possible COVID-19 pneumonia, requiring intubation and mechanical ventilator support 3 Hypotension, related to dehydration, and possibility of septic shock. Sumeet t is off norepinephrine, stress dose hydrocortisone was started, and is currently at 100 mg every 6 hours 4 Altered mental status with worsened from baseline 5 History of dementia and schizoaffective disorder 6 Acute dehydration and hypernatremia, on the D5W at 100 ML per hour, improving 7 Chronic stage 3 kidney disease 8 COPD 9 History of coronary artery disease 10 GERD/reflux 11 Hyperlipidemia 12 Acute kidney injury related to ATN, and dehydration, patient continues on IV hydration and continues to receive fluid boluses 13 Hyperkalemia related to GUADALUPE, resolved 14 Hypoglcemia, recovered and back on tube feeds. Blood sugars improved Plan: The patient was seen and evaluated today Chest x-ray, blood gases and labs reviewed Continue the current treatment plan for now Continue current vent settings Overall prognosis remains quite poor He is a DO NOT RESUSCITATE/DO NOT INTUBATE CODE STATUS We will continue with full supportive care We will continue to follow make further recommendations based on his clinical status Critical care time 36 minutes I, the cosigning physician, performed a history & physical examination of the patient. Lungs sounds crackles in the bilateral bases. Maintaining O2 saturations in the 90s on 50% FiO2 and a PEEP of 5 via the mechanical ventilator. I discussed the assessment and plan of care with my nurse practitioner, Maya Rivers. I attest to the above note as dictated by her.
[2021-05-31 12:19] LABS: Glucose,Whole Blood 134 mg/dL (75-99)
--- NOTE | 2021-05-31 14:13 | P.PN ---
Subjective Progress Note Date: 05/31/21 CHIEF COMPLAINT: Coronavirus pneumonia HISTORY OF PRESENT ILLNESS: The patient is a 70-year-old male status post tracheostomy and gastrostomy placement 05/26/2021. Patient has had minimal improvement despite complete mechanical ventilatory support. He has baseline mental status changes. ROS: No fevers or chills. No new chest pain. PHYSICAL EXAM: VITAL SIGNS: Reviewed CONSTITUTIONAL: Well developed and in no acute distress. EYES: Conjuctivae without sclera icterus. Extraocular movements grossly intact. HEAD, EARS, NOSE, THROAT: Moist buccal mucosa. Head is atraumatic, normocephalic. No nasal drainage. Tracheostomy site intact. RESPIRATORY: Non-labored respirations and equal bilateral excursions. CARDIOVASCULAR: Palpable 2+ radial pulses. ABDOMEN: Gastrostomy tube intact. MUSCULOSKELETAL: No gross deformity of the lower extremities noted. No clubbing. No cyanosis. SKIN: Good skin turgor. Well perfused. NEUROLOGIC: Cranial nerves II through XII grossly intact. No focal or lateralizing signs. PSYCH: Sedated. CLINICAL LABS: Reviewed. WBC normal at 10,600. Hemoglobin below 9.3. ASSESSMENT: 1. Coronavirus pneumonia with complications 2. Status post tracheostomy and gastrostomy 3. PLAN: 1. Supportive care. 2. Vent management per intensive care team Objective - Vital Signs Vital signs: Vital Signs Temp 96.6 F L 05/31/21 08:00 Pulse 38 L 05/31/21 11:00 Resp 29 H 05/31/21 11:00 BP 88/49 05/31/21 11:00 Pulse Ox 97 05/31/21 11:00 Intake & Output 05/30/21 05/31/21 05/31/21 18:59 06:59 18:59 Intake Total 7529.684 4423.632 764.330 Output Total 945 1060 854 Balance 943.079 769.632 -89.670 Weight 84.8 kg 86.9 kg Intake: IV 1176 1176 490 0.9 NaCl- 240 240 100 Dextrose 5% in Water 1, 900 900 375 000 ml @ 75 mls/hr IV . [id number] [facility] Rx#:[id number] pressure bag 36 36 15 Intake, IV Titration 334.079 335.632 208.330 Amount Cisatracurium 200 mg In 106.971 66.856 71.712 Sodium Chloride 0.9% 180 ml @ 2 MCG/KG/MIN 8.964 mls/hr IV .[id number] [facility] Rx #:[id number] Norepinephrine 4 mg In 127.108 127.987 36.618 Sodium Chloride 0.9% 250 ml @ 0.05 MCG/KG/MIN 13. 697 mls/hr IV .[id number] [facility] Rx#:[id number] propofoL 1,000 mg In 100 140.789 100 Empty Bag 1 bag @ Titrate IV .Q0M [facility] Rx#: [id number] Tube Feeding 198 198 66 Other 180 120 Output: Urine 945 1060 854 Other: Voiding Method Indwelling Catheter Indwelling Catheter Indwelling Catheter ABP, PAP, CO, CI - Last Documented Arterial Blood Pressure 132/50 - Labs CBC & Chem 7: 05/31/21 03:45 05/31/21 03:45 Labs: Abnormal Lab Results - Last 24 Hours (Table) 05/30/21 05/30/21 05/30/21 Range/Units 03:45 11:52 23:22 RBC (4.30-5.90) m/uL Hgb (13.0-17.5) gm/dL Hct (39.0-53.0) % Plt Count (150-450) k/uL Neutrophils # (1.3-7.7) k/uL Lymphocytes # (1.0-4.8) k/uL ABG pH (7.35-7.45) ABG pCO2 (35-45) mmHg ABG HCO3 (21-25) mmol/L ABG Total CO2 (19-24) mmol/L ABG O2 Saturation (94-97) % Chloride (98-107) mmol/L BUN (9-20) mg/dL Creatinine (0.66-1.25) mg/dL Glucose (74-99) mg/dL POC Glucose (mg/dL) 124 H 115 H (75-99) mg/dL AST (17-59) U/L C-Reactive Protein 5.5 H (0.00-0.80) mg/dL Total Protein (6.3-8.2) g/dL Albumin (3.5-5.0) g/dL 05/31/21 05/31/2105/31/22 Range/Units 03:45 03:45 05:38 RBC 3.01 L (4.30-5.90) m/uL Hgb 9.3 L (13.0-17.5) gm/dL Hct 29.6 L (39.0-53.0) % Plt Count 579 H (150-450) k/uL Neutrophils # 9.9 H (1.3-7.7) k/uL Lymphocytes # 0.3 L (1.0-4.8) k/uL ABG pH (7.35-7.45) ABG pCO2 (35-45) mmHg ABG HCO3 (21-25) mmol/L ABG Total CO2 (19-24) mmol/L ABG O2 Saturation (94-97) % Chloride 111 H (98-107) mmol/L BUN 23 H (9-20) mg/dL Creatinine 1.46 H (0.66-1.25) mg/dL Glucose 126 H (74-99) mg/dL POC Glucose (mg/dL) 140 H (75-99) mg/dL AST 15 L (17-59) U/L C-Reactive Protein (0.00-0.80) mg/dL Total Protein 4.7 L (6.3-8.2) g/dL Albumin 2.0 L (3.5-5.0) g/dL 05/31/21 Range/Units 06:25 RBC (4.30-5.90) m/uL Hgb (13.0-17.5) gm/dL Hct (39.0-53.0) % Plt Count (150-450) k/uL Neutrophils # (1.3-7.7) k/uL Lymphocytes # (1.0-4.8) k/uL ABG pH 7.31 L (7.35-7.45) ABG pCO2 60 H (35-45) mmHg ABG HCO3 30 H (21-25) mmol/L ABG Total CO2 32 H (19-24) mmol/L ABG O2 Saturation 97.4 H (94-97) % Chloride (98-107) mmol/L BUN (9-20) mg/dL Creatinine (0.66-1.25) mg/dL Glucose (74-99) mg/dL POC Glucose (mg/dL) (75-99) mg/dL AST (17-59) U/L C-Reactive Protein (0.00-0.80) mg/dL Total Protein (6.3-8.2) g/dL Albumin (3.5-5.0) g/dL Microbiology - Last 24 Hours (Table) 05/28/21 10:28 Blood Culture - Preliminary Blood No Growth after 48 hours
[2021-05-31] MEDS: DEXTROSE 5% IN WATER 1,000 ML IV SCH ×2 (16:25→23:53)
[2021-05-31] MEDS: HYDROmorphone 1 MG/ML 1 ML SYRINGE IVP PRN (17:34)
[2021-05-31 18:14] LABS: Glucose,Whole Blood 136 mg/dL (75-99)
[2021-05-31] MEDS: OLANZapine ODT 10 MG TAB PO SCH (21:10)
[2021-05-31] MEDS: ATORVASTATIN 20 MG TAB PO SCH (21:10)
[2021-05-31 23:48] LABS: Glucose,Whole Blood 165 mg/dL (75-99)
[2021-06-01 04:16] LABS: Basophils % (A) 0 %; Eosinophils % (A) 0 %; HCT 28.4 % (39.0-53.0); HGB 9.3 gm/dL (13.0-17.5); Lymphocytes # (A) 0.3 k/uL (1.0-4.8); Lymphocytes % (A) 5 %; MCH 31.9 pg (25.0-35.0); MCHC 32.7 g/dL (31.0-37.0); MCV 97.6 fL (80.0-100.0); Mean Platelet Volume 7.6; Monocytes # (A) 0.3 k/uL (0-1.0); Monocytes % (A) 5 %; Neutrophils % (A) 89 %; Platelet Count 562 k/uL (150-450); RBC 2.91 m/uL (4.30-5.90); RDW 14.9 % (11.5-15.5); WBC 5.6 k/uL (3.8-10.6)
[2021-06-01 04:23] LABS: Calcium 8.4 mg/dL (8.4-10.2)
[2021-06-01] MEDS: ARTIFICIAL TEARS-HYPROMELLOSE DROPS 15 ML BTL BOTH EYES SCH ×6 (04:37→23:17)
[2021-06-01] MEDS: NOREPINEPHRINE 4 MG in SODIUM CHLORIDE 0.9% 250 ML IV SCH ×2 (05:37→22:25)
[2021-06-01 05:54] LABS: ABG Base Excess 4.8 mmol/L; ABG HCO3 30 mmol/L (21-25); ABG Oxygen Saturation 99.6 % (94-97); ABG PCO2 51 mmHg (35-45); ABG PH 7.38 (7.35-7.45); ABG PO2 128 mmHg (83-108); ABG TCO2 32 mmol/L (19-24); Allen Test Performed? Yes
[2021-06-01] MEDS: MIDODRINE 5 MG TAB PO SCH ×3 (06:39→17:22)
[2021-06-01] MEDS: HYDROCORTISONE SUCCINATE 100 MG/2 ML VIAL IV SCH ×4 (06:39→23:17)
--- NOTE | 2021-06-01 06:53 | XR ---
EXAMINATION TYPE: XR chest 1V portable DATE OF EXAM: 06/01/2021 COMPARISON: 05/31/2021 HISTORY: Covid TECHNIQUE: Single frontal view of the chest is obtained. FINDINGS: No change in the right central venous catheter or tracheostomy No change in the by basilar opacities obscuring the hemidiaphragms are scattered predominantly inters titial infiltrates in the mid lower lung zones. The upper lung zones remain well aerated. The graft i s no pneumothorax. Heart size is normal. The osseous structures are intact. IMPRESSION: No significant interval change in the acute cardiopulmonary disease.
[2021-06-01] MEDS: ALBUTEROL HFA INHALER INHALATION SCH ×4 (08:33→19:11)
[2021-06-01] MEDS: MEROPENEM 1 GM in SODIUM CHLORIDE 0.9% 100 ML IVPB SCH ×3 (08:45→22:25)
[2021-06-01] MEDS: FERROUS SULFATE 325 MG TAB PO SCH (08:46)
[2021-06-01] MEDS: OLANZapine ODT 5 MG TAB PO SCH (08:46)
[2021-06-01] MEDS: NYSTATIN 100,000 UNIT/ML SUSP 500,000 UNIT/5 ML CUP PO SCH ×4 (08:46→21:00)
[2021-06-01] MEDS: FOLIC ACID 1 MG TAB PO SCH (08:46)
[2021-06-01] MEDS: ENOXAPARIN 40 MG/0.4 ML SYRINGE SQ SCH (08:47)
[2021-06-01] MEDS: PANTOPRAZOLE 40 MG/10 ML VIAL IVP SCH (08:48)
[2021-06-01] MEDS: CISATRACURIUM 200 MG in SODIUM CHLORIDE 0.9% 180 ML IV SCH (11:12)
[2021-06-01 11:23] LABS: Glucose,Whole Blood 137 mg/dL (75-99)
--- NOTE | 2021-06-01 12:33 | P.PN ---
Subjective Progress Note Date: 06/01/21 The patient is seen today 05/30/2021 in follow-up in the intensive care unit. He was admitted back on 05/17/2021 with COVID-19 pneumonia. He was subsequently intubated and placed on mechanical ventilator. He had failed to progress and had undergone tracheostomy and PEG tube placements on 05/26/2021. He has not made much progress. He is currently on the ventilator at assist control with a rate of 30, tidal 150, FiO2 40% and a PEEP of 5. Morning blood gases reveal a P O2 of 102, pCO2 55, pH 7.33. He is sedated on propofol at 40 mcg/kg/m. He is requiring norepinephrine at 2 mcg/m. He has D5.45 normal saline at 75 ML's per hour. Pneumovax is currently off. He is being nourished with Nepro at 22 ML's per hour which is goal. Chest x-ray is limited. There is evidence of COPD. Xhbzm-qf-szhtyocg bilateral pleural effusions. Continued patchy mid and lower lung, but infiltrates. We'll culture positive for E. coli. Follow-up blood cultures revealing no growth. White count 9.9. Hemoglobin 9.8. D-dimer 1.21. Sodium 140. Potassium 4.3. Creatinine 1.21. Glucose 143. AST 12. ALT 8. He is continued on Solu-Cortef, admitted during, Lovenox, antibiotics in the form of meropenem. He is in a positive balance of 615 ML's. The patient is seen today 05/31/2021 in follow-up in the intensive care unit. He remains on the mechanical ventilator via tracheostomy tube. Current settings are assist-control mode at a rate of 30, tight on 350, FiO2 50% and a PEEP of 5. Morning blood gases reveal a P O2 of 89, pCO2 60, pH 7.31. He remains sedated on propofol at 40 mcg/kg/m. Nimbex at 2 mcg/kg/m. D5W at 75 ML's per hour. He is being nourished with Nepro at 22 ML's per hour which is goal. His sputum was positive for E. coli. He remains on meropenem. Chest x-ray continues to show bilateral lung infiltrates with subpleural parenchymal opacities in mild to moderate interstitial infiltrates. Mild improvement in the left mid lower lung zone. White count 10.6. Hemoglobin 9.3. Sodium 139. Potassium 4.0. BUN 23. Creatinine 1.46. Glucose 126. AST 15. ALT 11. He is continued on Solu- Cortef. He's been able to remain off norepinephrine. He's been +1.7 L balance. The patient is seen today 06/01/2021 in follow-up in the care unit. He remains on mechanical ventilator and assist control mode. Rate 30. Tidal volume 350. FiO2 40%. PEEP of 5. Morning blood gases reveal a P O2 of 128, pCO2 51, case H7.3. This was on 50% FiO2. He remains sedated on propofol at 35 mcg/kg/m. Currently off pressors. He has D5W at 75 ML's per hour. He is being nourished with Nepro tube feedings at 22 ML's per hour which is goal. Chest x-ray continues to show basilar opacities in some interstitial infiltrates in the mid lung zones. Upper zones remain well aerated. No significant change. No pneumothorax. Sputum culture was positive for Romelia and E. coli. Follow-up b lood cultures revealed no growth. White count 5.6. Hemoglobin 9.3. Platelet count 562. Sodium 137. Potassium 4.0. Chloride 110. Creatinine 1.42. Glucose 146. He remains on antibiotics in form of meropenem. Continued on Solu-Cortef. Lovenox for DVT prophylaxis. Objective - Vital Signs Vital signs: Vital Signs Temp 96.1 F L 06/01/21 09:00 Pulse 44 L 06/01/21 09:00 Resp 30 H 06/01/21 09:00 BP 144/70 06/01/21 09:00 Pulse Ox 97 06/01/21 09:00 Intake & Output 05/31/21 06/01/21 06/01/21 18:59 06:59 18:59 Intake Total 5237.606 4994.143 638.397 Output Total 1518 940 425 Balance 430.237 944.143 213.397 Weight 86.5 kg Intake: IV 1176 1176 394 0.9 NaCl- 240 240 60 Dextrose 5% in Water 1, 900 900 225 000 ml @ 75 mls/hr IV . [id number] [facility] Rx#:[id number] Meropenem 100 pressure bag 36 36 9 Intake, IV Titration 328.237 324.143 118.397 Amount Cisatracurium 200 mg In 71.712 Sodium Chloride 0.9% 180 ml @ 2 MCG/KG/MIN 8.964 mls/hr IV .[id number] [facility] Rx #:[id number] Norepinephrine 4 mg In 56.525 41.039 15.614 Sodium Chloride 0.9% 250 ml @ 0.05 MCG/KG/MIN 13. 697 mls/hr IV .[id number] [facility] Rx#:[id number] propofoL 1,000 mg In 200 283.104 102.783 Empty Bag 1 bag @ Titrate IV .Q0M [facility] Rx#: [id number] Tube Feeding 264 264 66 Other 180 120 60 Output: Urine 1518 940 425 Other: Voiding Method Indwelling Catheter Indwelling Catheter Indwelling Catheter ABP, PAP, CO, CI - Last Documented Arterial Blood Pressure 140/58 - Exam GENERAL EXAM: Sedated, frail 70-year-old male gentleman, on the mechanical ventilator. HEAD: Normocephalic. EYES: Normal reaction of pupils, equal size. NOSE: Clear with pink turbinates. THROAT: No erythema or exudates. NECK: Tracheostomy tube secured in place. No masses, no JVD. CHEST: No chest wall deformity. LUNGS: Equal air entry with crackles in the posterior bases. CVS: S1 and S2 normal with no audible murmur, regular rhythm. ABDOMEN: PEG tube exit site clean and dry. No hepatosplenomegaly, normal bowel sounds, no guarding or rigidity. SPINE: No scoliosis or deformity SKIN: No rashes CENTRAL NERVOUS SYSTEM: Sedated, tone is normal in all 4 extremities. EXTREMITIES: There is trace peripheral edema. No clubbing, no cyanosis. Peripheral pulses are intact. - Labs CBC & Chem 7: 06/01/21 04:00 06/01/21 04:00 Labs: Abnormal Lab Results - Last 24 Hours (Table) 05/31/21 05/31/21 06/01/21 Range/Units 18:13 23:47 04:00 RBC 2.91 L (4.30-5.90) m/uL Hgb 9.3 L (13.0-17.5) gm/dL Hct 28.4 L (39.0-53.0) % Plt Count 562 H (150-450) k/uL Lymphocytes # 0.3 L (1.0-4.8) k/uL ABG pCO2 (35-45) mmHg ABG pO2 (83-108) mmHg ABG HCO3 (21-25) mmol/L ABG Total CO2 (19-24) mmol/L ABG O2 Saturation (94-97) % Chloride (98-107) mmol/L BUN (9-20) mg/dL Creatinine (0.66-1.25) mg/dL Glucose (74-99) mg/dL POC Glucose (mg/dL) 136 H 165 H (75-99) mg/dL 06/01/21 06/01/21 06/01/21 Range/Units 04:00 05:50 11:22 RBC (4.30-5.90) m/uL Hgb (13.0-17.5) gm/dL Hct (39.0-53.0) % Plt Count (150-450) k/uL Lymphocytes # (1.0-4.8) k/uL ABG pCO2 51 H (35-45) mmHg ABG pO2 128 H (83-108) mmHg ABG HCO3 30 H (21-25) mmol/L ABG Total CO2 32 H (19-24) mmol/L ABG O2 Saturation 99.6 H (94-97) % Chloride 110 H (98-107) mmol/L BUN 27 H (9-20) mg/dL Creatinine 1.42 H (0.66-1.25) mg/dL Glucose 146 H (74-99) mg/dL POC Glucose (mg/dL) 137 H (75-99) mg/dL Microbiology - Last 24 Hours (Table) 05/28/21 10:28 Blood Culture - Preliminary Blood No Growth after 72 hours Assessment and Plan Assessment: 1 Acute hypoxic respiratory failure related to acute COVID-19 pneumonia, and possibility of bacterial infection/aspiration related pneumonia is not entirely excluded, sputum culture showed ESBL E. coli, and patient is covered with meropenem. Patient was brought into the emergency department on 05/17/2021 per EMS, patient is a poor historian, reportedly has history of bipolar disease and dementia. Came in primarily for evaluation of altered mental status. Transferred from [place] emergency department for COVID-19 related pneumonia. The patient was taken to the hospital in [place] 4 days prior to this admission and the symptom onset was probably even prior to that. Exact onset of symptoms is not known. Patient was transferred to the intensive care unit on 05/19/2021 for worsening hypoxia, and hypercapnia, and altered mental status, and was intubated on 05/19/2021. Patient had tolerated pressure support trials, and was extubated on 05/24/2021 however failed and was reintubated on 05/25/2021. He did undergo tracheostomy and PEG tube placements on 05/26/2021. He is now a DO NOT RESUSCITATE/DO NOT INTUBATE CODE STATUS 2 Acute hypercapnic respiratory failure, related to acute aspiration, and possible COVID-19 pneumonia, requiring intubation and mechanical ventilator support 3 Hypotension, related to dehydration, and possibility of septic shock. Patient is off norepinephrine, stress dose hydrocortisone was started, and is currently at 100 mg every 6 hours 4 Altered mental status with worsened from baseline 5 History of dementia and schizoaffective disorder 6 Acute dehydration and hypernatremia, on the D5W at 100 ML per hour, improving 7 Chronic stage 3 kidney disease 8 COPD 9 History of coronary artery disease 10 GERD/reflux 11 Hyperlipidemia 12 Acute kidney injury related to ATN, and dehydration, patient continues on IV hydration and continues to receive fluid boluses 13 Hyperkalemia related to GUADALUPE, resolved 14 Hypoglcemia, recovered and back on tube feeds. Blood sugars improved Plan: The patient was seen and evaluated today Chest x-ray, blood gases and labs reviewed Decrease the FiO2 to 40% Continue the current treatment plan for now We will attempt a daily interruption of sedation Evaluate his neurologic status Overall prognosis remains quite poor He is a DO NOT RESUSCITATE/DO NOT INTUBATE CODE STATUS We will continue to follow and make further recommendations based on his clinical status Critical care time 35 minutes I, the cosigning physician, performed a history & physical examination of the patient. Lungs sounds crackles in the bilateral bases. Maintaining O2 saturations in the 90s on 40% FiO2 and a PEEP of 5 via the mechanical ventilator. I discussed the assessment and plan of care with my nurse practitioner, Maya Rivers. I attest to the above note as dictated by her.
[2021-06-01] MEDS: HYDROmorphone 1 MG/ML 1 ML SYRINGE IVP PRN (13:19)
--- NOTE | 2021-06-01 14:58 | P.PN ---
Subjective Progress Note Date: 06/01/21 CHIEF COMPLAINT: Coronavirus pneumonia HISTORY OF PRESENT ILLNESS: The patient is a 70-year-old male status post tracheostomy and gastrostomy placement 05/26/2021. Patient is on full mechanical ventilatory support. ROS: No fevers or chills. No new chest pain. PHYSICAL EXAM: VITAL SIGNS: Reviewed CONSTITUTIONAL: Well developed and in no acute distress. EYES: Conjuctivae without sclera icterus. Extraocular movements grossly intact. HEAD, EARS, NOSE, THROAT: Moist buccal mucosa. Head is atraumatic, normocephalic. No nasal drainage. Tracheostomy site intact. RESPIRATORY: Non-labored respirations and equal bilateral excursions. CARDIOVASCULAR: Palpable 2+ radial pulses. ABDOMEN: Gastrostomy tube intact. MUSCULOSKELETAL: No gross deformity of the lower extremities noted. No clubb ing. No cyanosis. SKIN: Good skin turgor. Well perfused. NEUROLOGIC: Cranial nerves II through XII grossly intact. No focal or lateralizing signs. PSYCH: Sedated. CLINICAL LABS: Reviewed. WBC normal. ASSESSMENT: 1. Coronavirus pneumonia with complications 2. Status post tracheostomy and gastrostomy 3. PLAN: 1. Continue supportive care for coronavirus Objective - Vital Signs Vital signs: Vital Signs Temp 97.1 F L 06/01/21 12:00 Pulse 49 L 06/01/21 14:00 Resp 30 H 06/01/21 14:00 BP 106/56 06/01/21 14:00 Pulse Ox 93 L 06/01/21 14:00 Intake & Output 05/31/21 06/01/21 06/01/21 18:59 06:59 18:59 Intake Total 5954.469 8300.143 1260.236 Output Total 1518 940 925 Balance 430.237 944.143 335.236 Weight 86.5 kg Intake: IV 1176 1176 884 0.9 NaCl- 240 240 160 Dextrose 5% in Water 1, 900 900 600 000 ml @ 75 mls/hr IV . [id number] [facility] Rx#:[id number] Meropenem 100 pressure bag 36 36 24 Intake, IV Titration 328.237 324.143 124.236 Amount Cisatracurium 200 mg In 71.712 Sodium Chloride 0.9% 180 ml @ 2 MCG/KG/MIN 8.964 mls/hr IV .[id number] [facility] Rx #:[id number] Norepinephrine 4 mg In 56.525 41.039 15.614 Sodium Chloride 0.9% 250 ml @ 0.05 MCG/KG/MIN 13. 697 mls/hr IV .[id number] [facility] Rx#:[id number] propofoL 1,000 mg In 200 283.104 108.622 Empty Bag 1 bag @ Titrate IV .Q0M [facility] Rx#: [id number] Tube Feeding 264 264 132 Other 180 120 120 Output: Urine 1518 940 925 Other: Voiding Method Indwelling Catheter Indwelling Catheter Indwelling Catheter ABP, PAP, CO, CI - Last Documented Arterial Blood Pressure 105/46 - Labs CBC & Chem 7: 06/01/21 04:00 06/01/21 04:00 Labs: Abnormal Lab Results - Last 24 Hours (Table) 05/31/21 05/31/21 06/01/21 Range/Units 18:13 23:47 04:00 RBC 2.91 L (4.30-5.90) m/uL Hgb 9.3 L (13.0-17.5) gm/dL Hct 28.4 L (39.0-53.0) % Plt Count 562 H (150-450) k/uL Lymphocytes # 0.3 L (1.0-4.8) k/uL ABG pCO2 (35-45) mmHg ABG pO2 (83-108) mmHg ABG HCO3 (21-25) mmol/L ABG Total CO2 (19-24) mmol/L ABG O2 Saturation (94-97) % Chloride (98-107) mmol/L BUN (9-20) mg/dL Creatinine (0.66-1.25) mg/dL Glucose (74-99) mg/dL POC Glucose (mg/dL) 136 H 165 H (75-99) mg/dL 06/01/21 06/01/21 06/01/21 Range/Units 04:00 05:50 11:22 RBC (4.30-5.90) m/uL Hgb (13.0-17.5) gm/dL Hct (39.0-53.0) % Plt Count (150-450) k/uL Lymphocytes # (1.0-4.8) k/uL ABG pCO2 51 H (35-45) mmHg ABG pO2 128 H (83-108) mmHg ABG HCO3 30 H (21-25) mmol/L ABG Total CO2 32 H (19-24) mmol/L ABG O2 Saturation 99.6 H (94-97) % Chloride 110 H (98-107) mmol/L BUN 27 H (9-20) mg/dL Creatinine 1.42 H (0.66-1.25) mg/dL Glucose 146 H (74-99) mg/dL POC Glucose (mg/dL) 137 H (75-99) mg/dL Microbiology - Last 24 Hours (Table) 05/28/21 10:28 Blood Culture - Preliminary Blood No Growth after 96 hours
--- NOTE | 2021-06-01 16:22 | P.PN ---
Subjective Progress Note Date: 05/31/21 Principal diagnosis: COVID-19 pneumonia Interval history: Patient is a 70-year-old male presented to the hospital with acute respiratory failure in this but have a evidence of multifocal pneumonia secondary to COVID-19. Patient did have worsening of his respiratory status requiring intubation on 05/19/2021, patient has been extubated on 05/24/2021 however the patient did have worsening of his respiratory status and inability intubated night of 05/24/2021, patient is status post trach and PEG on 05/26/2021 On today's evaluation that is 05/31/2021, The patient is afebrile today, however is hemodynamically stable , no significant purulent secretions no the ET or d iarrhea has been reported by the nursing staff, patient remains to be unresponsive and unable to provide any history Objective - Vital Signs Vital signs: Vital Signs Temp 98.1 F 05/31/21 20:00 Pulse 44 L 05/31/21 23:00 Resp 30 H 05/31/21 23:00 BP 108/58 05/31/21 23:00 Pulse Ox 97 05/31/21 23:00 Intake & Output 05/31/21 05/31/21 06/01/21 06:59 18:59 06:59 Intake Total 4237.596 8363.237 730 Output Total 1060 1518 375 Balance 769.632 430.237 355 Weight 86.9 kg Intake: IV 1176 1176 490 0.9 NaCl- 240 240 100 Dextrose 5% in Water 1, 900 900 375 000 ml @ 75 mls/hr IV . [id number] [facility] Rx#:[id number] pressure bag 36 36 15 Intake, IV Titration 335.632 328.237 100 Amount Cisatracurium 200 mg In 66.856 71.712 Sodium Chloride 0.9% 180 ml @ 2 MCG/KG/MIN 8.964 mls/hr IV .[id number] [facility] Rx #:[id number] Norepinephrine 4 mg In 127.987 56.525 Sodium Chloride 0.9% 250 ml @ 0.05 MCG/KG/MIN 13. 697 mls/hr IV .[id number] [facility] Rx#:[id number] propofoL 1,000 mg In 140.789 200 100 Empty Bag 1 bag @ Titrate IV .Q0M [facility] Rx#: [id number] Tube Feeding 198 264 110 Other 120 180 30 Output: Urine 1060 1518 375 Other: Voiding Method Indwelling Catheter Indwelling Catheter Indwelling Catheter ABP, PAP, CO, CI - Last Documented Arterial Blood Pressure 122/55 - Exam General description is an elderly male intubated on the vent Respiratory system:Unlabored breathing, decreased intensity in breath sounds. Heart S1, S2. Regular rate and rhythm. Abdomen soft, no tenderness. Extremities: No edema feet - Labs CBC & Chem 7: 06/01/21 04:00 06/01/21 04:00 Labs: Abnormal Lab Results - Last 24 Hours (Table) 05/31/21 05/31/21 05/31/21 Range/Units 03:45 03:45 05:38 RBC 3.01 L (4.30-5.90) m/uL Hgb 9.3 L (13.0-17.5) gm/dL Hct 29.6 L (39.0-53.0) % Plt Count 579 H (150-450) k/uL Neutrophils # 9.9 H (1.3-7.7) k/uL Lymphocytes # 0.3 L (1.0-4.8) k/uL ABG pH (7.35-7.45) ABG pCO2 (35-45) mmHg ABG HCO3 (21-25) mmol/L ABG Total CO2 (19-24) mmol/L ABG O2 Saturation (94-97) % Chloride 111 H (98-107) mmol/L BUN 23 H (9-20) mg/dL Creatinine 1.46 H (0.66-1.25) mg/dL Glucose 126 H (74-99) mg/dL POC Glucose (mg/dL) 140 H (75-99) mg/dL AST 15 L (17-59) U/L Total Protein 4.7 L (6.3-8.2) g/dL Albumin 2.0 L (3.5-5.0) g/dL 05/31/21 05/31/21 05/31/21 Range/Units 06:25 12:17 18:13 RBC (4.30-5.90) m/uL Hgb (13.0-17.5) gm/dL Hct (39.0-53.0) % Plt Count (150-450) k/uL Neutrophils # (1.3-7.7) k/uL Lymphocytes # (1.0-4.8) k/uL ABG pH 7.31 L (7.35-7.45) ABG pCO2 60 H (35-45) mmHg ABG HCO3 30 H (21-25) mmol/L ABG Total CO2 32 H (19-24) mmol/L ABG O2 Saturation 97.4 H (94-97) % Chloride (98-107) mmol/L BUN (9-20) mg/dL Creatinine (0.66-1.25) mg/dL Glucose (74-99) mg/dL POC Glucose (mg/dL) 134 H 136 H (75-99) mg/dL AST (17-59) U/L Total Protein (6.3-8.2) g/dL Albumin (3.5-5.0) g/dL Microbiology - Last 24 Hours (Table) 05/28/21 10:28 Blood Culture - Preliminary Blood No Growth after 72 hours Assessment and Plan (1) Aspiration pneumonia Current Visit: Yes Status: Acute Code(s): J69.0 - PNEUMONITIS DUE TO INHALATION OF FOOD AND VOMIT SNOMED Code(s): 783518429 (2) COVID-19 Current Visit: Yes Status: Acute Code(s): U07.1 - COVID-19 SNOMED Code(s): 699135253 Plan: Patient with acute respiratory failure which is multifactorial in this patient with initial diagnosis of COVID-19 pneumonia in this patient did have significant worsening of his respiratory status requiring intubation and concern for possible aspiration pneumonitis, patient's sputum has been finalized with ESBL E. coli, patient is currently on meropenem 1 g every 8 hours and monitor clinical course closely Time with Patient: Less than 30
--- NOTE | 2021-06-01 16:23 | P.PN ---
Subjective Progress Note Date: 06/01/21 Principal diagnosis: COVID-19 pneumonia Interval history: Patient is a 70-year-old male presented to the hospital with acute respiratory failure in this but have a evidence of multifocal pneumonia secondary to COVID-19. Patient did have worsening of his respiratory status requiring intubation on 05/19/2021, patient has been extubated on 05/24/2021 however the patient did have worsening of his respiratory status and inability intubated night of 05/24/2021, patient is status post trach and PEG on 05/26/2021 On today's evaluation that is 06/01/2021, The patient remains to be afebrile, the patient is hemodynamically stable , patient FiO2 is currently stable at 40% no significant purulent secretions no the ET or diarrhea has been reported by the nursing staff, patient remains to be unresponsive Objective - Vital Signs Vital signs: Vital Signs Temp 97.5 F L 06/01/21 15:00 Pulse 45 L 06/01/21 16:00 Resp 31 H 06/01/21 16:00 BP 107/59 06/01/21 16:00 Pulse Ox 95 06/01/21 16:00 Intake & Output 05/31/21 06/01/21 06/01/21 18:59 06:59 18:59 Intake Total 7917.483 0271.143 1704.236 Output Total 9711 735 9666 Balance 430.237 944.143 504.236 Weight 86.5 kg Intake: IV 1176 1176 1180 0.9 NaCl- 240 240 200 Dextrose 5% in Water 1, 900 900 750 000 ml @ 75 mls/hr IV . [id number] [facility] Rx#:[id number] Meropenem 200 pressure bag 36 36 30 Intake, IV Titration 328.237 324.143 124.236 Amount Cisatracurium 200 mg In 71.712 Sodium Chloride 0.9% 180 ml @ 2 MCG/KG/MIN 8.964 mls/hr IV .[id number] [facility] Rx #:[id number] Norepinephrine 4 mg In 56.525 41.039 15.614 Sodium Chloride 0.9% 250 ml @ 0.05 MCG/KG/MIN 13. 697 mls/hr IV .[id number] [facility] Rx#:[id number] propofoL 1,000 mg In 200 283.104 108.622 Empty Bag 1 bag @ Titrate IV .Q0M [facility] Rx#: [id number] Tube Feeding 264 264 220 Other 180 120 180 Output: Urine 6254 806 7876 Other: Voiding Method Indwelling Catheter Indwelling Catheter Indwelling Catheter ABP, PAP, CO, CI - Last Documented Arterial Blood Pressure 111/51 - Exam General description is an elderly male intubated on the vent Respiratory system:Unlabored breathing, decreased intensity in breath sounds. Heart S1, S2. Regular rate and rhythm. Abdomen soft, no tenderness. Extremities: No edema feet - Labs CBC & Chem 7: 06/01/21 04:00 06/01/21 04:00 Labs: Abnormal Lab Results - Last 24 Hours (Table) 05/31/21 05/31/21 06/01/21 Range/Units 18:13 23:47 04:00 RBC 2.91 L (4.30-5.90) m/uL Hgb 9.3 L (13.0-17.5) gm/dL Hct 28.4 L (39.0-53.0) % Plt Count 562 H (150-450) k/uL Lymphocytes # 0.3 L (1.0-4.8) k/uL ABG pCO2 (35-45) mmHg ABG pO2 (83-108) mmHg ABG HCO3 (21-25) mmol/L ABG Total CO2 (19-24) mmol/L ABG O2 Saturation (94-97) % Chloride (98-107) mmol/L BUN (9-20) mg/dL Creatinine (0.66-1.25) mg/dL Glucose (74-99) mg/dL POC Glucose (mg/dL) 136 H 165 H (75-99) mg/dL 06/01/21 06/01/21 06/01/21 Range/Units 04:00 05:50 11:22 RBC (4.30-5.90) m/uL Hgb (13.0-17.5) gm/dL Hct (39.0-53.0) % Plt Count (150-450) k/uL Lymphocytes # (1.0-4.8) k/uL ABG pCO2 51 H (35-45) mmHg ABG pO2 128 H (83-108) mmHg ABG HCO3 30 H (21-25) mmol/L ABG Total CO2 32 H (19-24) mmol/L ABG O2 Saturation 99.6 H (94-97) % Chloride 110 H (98-107) mmol/L BUN 27 H (9-20) mg/dL Creatinine 1.42 H (0.66-1.25) mg/dL Glucose 146 H (74-99) mg/dL POC Glucose (mg/dL) 137 H (75-99) mg/dL Microbiology - Last 24 Hours (Table) 05/28/21 10:28 Blood Culture - Preliminary Blood No Growth after 96 hours Assessment and Plan (1) Aspiration pneumonia Current Visit: Yes Status: Acute Code(s): J69.0 - PNEUMONITIS DUE TO INHALATION OF FOOD AND VOMIT SNOMED Code(s): 531783945 (2) COVID-19 Current Visit: Yes Status: Acute Code(s): U07.1 - COVID-19 SNOMED Code(s): 159952676 Plan: Patient with acute respiratory failure which is multifactorial in this patient with initial diagnosis of COVID-19 pneumonia in this patient did have significant worsening of his respiratory status requiring intubation and concern for possible aspiration pneumonitis, status post trach and peg, patient's sputum has been finalized with ESBL E. coli, for which the patient is currently being treated with meropenem 1 g every 8 hours and monitor clinical course closely Time with Patient: Less than 30
[2021-06-01 17:44] LABS: Glucose,Whole Blood 111 mg/dL (75-99)
[2021-06-01] MEDS: DEXTROSE 5% IN WATER 1,000 ML IV SCH (17:58)
[2021-06-01] MEDS: ATORVASTATIN 20 MG TAB PO SCH (20:00)
[2021-06-01] MEDS: OLANZapine ODT 10 MG TAB PO SCH (20:00)
--- NOTE | 2021-06-01 22:43 | P.PN ---
Subjective Progress Note Date: 05/31/21 This is a 70-year-old male who was recently admitted with change in mental status and fall and also shortness of breath and acute COVID-19 pneumonia and being closely monitored. Patient was continued on high flow oxygen although respiratory status continued to deteriorate and an A team was called. Patient was brought to the ICU for close monitoring and x-ray showed some bilateral lower lobe pneumonia which appears unchanged compared to recent exam with no obvious heart failure. Patient was placed on mechanical vent and intubated and sedated and is being closely monitored. Multiple medical consultations including pulmonary and infectious disease following closely. 05/20/2021 Patient is seen in follow-up activity is to be closely monitored in the ICU. Blood pressure and heart rate has been extremely variable and patient is maintained on D10 in water along with norepinephrine and will continue. Pulmonary and infectious disease following closely. Patient continues with worsening kidney functions nephrology consulted and patient is being given a liter bolus for hypotension and repeat sodium level ordered. Patient also continues on Zosyn and ID following closely. Patient continues with low blood sugar readings as well and we'll continue D10 and close glucose monitoring. Chest x-ray shows some improvement in bibasilar infiltrates more so on the right and possibly developing small right pleural effusion. 05/21/2021 Patient is seen and evaluated this morning continues to be in the ICU with multiple medical consultations following. Patient is continued on IV antibiotics with ID following. Cultures continue to be negative and WBC is 8.5. Patient did have low grade temp today. Patient continues on mechanical vent and sedated. Chest xray similar to previous exam and will continue to monitor. Prognosis remains guarded. Patient also continued on norepinephrine. 05/22/2021 Patient is seen and evaluated today continues to be on mechanical vent with an FiO2 of 40% PEEP is 5. Patient continuing with weaning trials and assist mode on mechanical vent although patient continues to not follow commands per nursing staff. Per pulmonary pharmacologist continued attempts at weaning. Chest x-ray shows chronic emphysematous changes and pulmonary fibrosis with moderate bilateral pleural effusions and bilateral multifocal increased opacification consistent with COVID-19 infection are all redemonstrated with no significant change from yesterday. Sputum culture finalized showing Romelia species not albicans, glabrata along with Romelia albicans and infectious disease is foll owing. Patient continues on IV antibiotics in the form of Zosyn. Patient is currently off norepinephrine and receiving Solu-Cortef along with valproic acid and Depakote. Patient is continued on Lovenox for DVT prophylaxis. Patient also continues on D5 in water at 100 mL per hour. Blood gases are improving and pulmonary discussing possible extubation. 05/23/2021 Patient is seen this morning continues to be on mechanical vent with an FiO2 of 40 and a PEEP of 5 with continued weaning trials. Patient is off sedation and does open eyes to verbal stimuli although does not follow commands. Chest x-ray today shows chronic emphysematous and pulmonary fibrotic changes with small size bilateral pleural effusions and bilateral multifocal increased opacification is consistent with COVID-19 infection are again redemonstrated with no significant change from previous. General surgery consulted for possible trach and peg tube placement. 05/24/2021 Patient with spontaneous eye opening during assessment, eyes are tracking, however when asked to squeeze fingers patient unable to do so and did not wiggle toes when asked. He was not responsive to commands or yes or no questions. Continues in the ICU on 5L NC with an oxygen saturation of 91%. He is afebrile, Heart rate is in the 40-50's dropping into the mid 30's. Unclear whether patient is in a heart block, nurse reports HR of 30's seems to be when he is sleeping. EKG will try to be obtained when he is in the 30's. Respirations are 23, blood pressure 135/55. Chest xray today remains unchanged. Possible trach and PEG tube wednesday if needed. Labs today show WBC 7.0, hgb 9.1, D-dimer 0.86, sodium 142, potassium 3.6, BUN 33, creatinine 1.28, glucose in the 130s, calcium 7.8, CRP 1.7, total protein 4.6, albumin 2.0. Multiple consultations. Prognosis remains guarded. 05/25/2021 Throughout the evening patient desaturated and his blood pressure was dropping while on the levophed and his heart rate was increasing and then once he was off the levophed his heart rate was increasing and his blood pressure was dropping. Patient was reintubated with an Fi02 of 60%. Blood gases at the time showed a pCO2 of greater than 120, pH 6.97, pO2 170, total oxygen saturation 98. Oxygen saturations 98%, he is afebrile, pulse rate 43 appears sinus bradycardia on EKG that was obtained midmorning. Blood pressure 135/75. Blood gases have improved with a pH now 7.30, pCO2 57, pO2 57, HCO3 28, total CO2 30 and O2 saturation 87.5. Sodium 140, potassium 3.7, chloride 109, CO2 28, BUN 27, creatinine 1.36, blood glucose 120, calcium 8.1, AST 27, ALT 19, LDH 585, CRP 1.9. Chest x-ray today shows as based consolidation atelectasis and volume loss in the right hemithorax which is slightly compared to exam yesterday. Has pulmonary interstitial edema on the left side without change. Plan is for a PEG, trach tomorrow. Cardiology was consulted and started patient on a dopamine infusion. Patient is on D5 water at 75 mL per hour, levophed infusing, propofol, on IV Zosyn and IV valproic acid. Labs initial white count 13, hemoglobin 10.7, d- dimer 1.84. 05/26/2021 Patient is seen today in follow up in the ICU being closely monitored. Multiple medical consultations following along with general surgery and is scheduled for peg and trach placement today. Tube feedings on hold. Patient continues on mechanical vent and FI02 is 50% peep is 5. Chest xray today shows COPD right greater than left with covid infiltrates and aeration improving now on the right. Potassium is 3.2 and being replaced. Lovenox on hold for the procedure as well. 05/27/2021 Patient is seen in follow-up in the ICU with multiple medical consultations following. Patient is status post PEG and trach placement and will be initiating tube feeds once cleared by surgery. Sputum culture finalized showing E. coli with ESBL and resistance and infectious disease is following. Patient was continued on dopamine along with Levophed and attempting to wean per nursing staff. Patient also continues in D5 water with nephrology following closely. Patient is on IV Zosyn along with nystatin and will continue. Chest x-ray today shows stable portable chest with no evidence of pneumothorax and no change in bibasilar opacities. Patient continues on propofol and FiO2 is 50% with a PEEP of 5. Potassium found a 3.2 and replaced and will repeat labs. 05/28/2021 Patient is seen in follow-up this morning continues to be in the ICU with multiple medical consultations following. Patient is currently continued on mechanical vent via tracheostomy and FiO2 is 40% with a PEEP of 5. Patient is status post peg and trach and surgery following. Patient resumed on lovenox and tube feedings. Tolerating tube feedings thus far. Patient continues on levophed and off dopamine. Patient was on Midodrine and will resume along with his olanzapine and continue to monitor closely. Patient is maintained on Meropenem and ID following closely. Patient also continues on solu-cortef and d5 in water with nephrology following as well. 05/29/2021 Patient is seen and evaluated in follow-up today continues to be in the ICU under close observation with multiple medical consultations following. Patient continues on mechanical ventilation via tracheostomy and FiO2 is 40% and PEEP is 5. Chest xray today shows COPD with continued peripheral and basilar covid infiltrates, similar to slightly worsened from yesterday. Patient continues with sedation holidays to assess mentation although continues to not follow commands appropriately. Patient continues on Levophed as well. IV merrem to continue. 05/30/2021 Patient is seen this morning in the ICU with multiple medical consultations following. Patient continues on vent with an FI02 of 40% and peep is 5. Chest x-ray today shows a curvilinear edge that is now seen at the bilateral apices that could be projectional artifact and recommended follow-up with improved positioning to exclude trace of new biapical pneumothoraces, COPD, increase in small to moderate bilateral pleural effusions with continued patchy mid and lower lung Covid infiltrates. Patient continues on sedation and staffing manager working on weaning. Patient will open eyes although not follow any commands. Continues on low dose levophed 05/31/2021 Patient is in the MICU. Admitted to hospital due to acute COVID-19 pneumonia. Currently on mechanical ventilator via tracheostomy tube. Assist-control with respiratory rate 30, tidal volume 350, FiO2 50% and PEEP of 5. Remains on propofol and Nimbex. Currently on D5 water at 75 cc/h. Patient is off pressor support. Patient is being continued on antibiotics in the form of meropenem. Sputum cultures growing Romelia and most recently E. coli. ID is on board. Chest x- ray showed bilateral lung infiltrates with suggestion of mild improvement in the left midlung zone. Laboratory data showed WBC 10.6 hemoglobin 9.3 and platelets 579 Sodium 139 potassium 4.0 chloride 101 bicarb is 28 BUN 23 and creatinine 1.46 albumin 2.0 Patient is on hydrocortisone her milligrams IV every 6 hourly and also on midodr ine. Current medications reviewed. Review of systems: Unable to obtain as patient is mechanically intubated and sedated Objective - Vital Signs Vital signs: Vital Signs Temp 97.3 F L 05/31/21 12:00 Pulse 42 L 05/31/21 14:00 Resp 30 H 05/31/21 14:00 BP 113/58 05/31/21 14:00 Pulse Ox 97 05/31/21 14:00 Intake & Output 05/30/21 05/31/21 05/31/21 18:59 06:59 18:59 Intake Total 6520.994 1996.632 1388.330 Output Total 945 1060 1129 Balance 943.079 769.632 259.330 Weight 84.8 kg 86.9 kg Intake: IV 1176 1176 784 0.9 NaCl- 240 240 160 Dextrose 5% in Water 1, 900 900 600 000 ml @ 75 mls/hr IV . [id number] [facility] Rx#:[id number] pressure bag 36 36 24 Intake, IV Titration 334.079 335.632 308.330 Amount Cisatracurium 200 mg In 106.971 66.856 71.712 Sodium Chloride 0.9% 180 ml @ 2 MCG/KG/MIN 8.964 mls/hr IV .[id number] [facility] Rx #:[id number] Norepinephrine 4 mg In 127.108 127.987 36.618 Sodium Chloride 0.9% 250 ml @ 0.05 MCG/KG/MIN 13. 697 mls/hr IV .[id number] [facility] Rx#:[id number] propofoL 1,000 mg In 100 140.789 200 Empty Bag 1 bag @ Titrate IV .Q0M [facility] Rx#: [id number] Tube Feeding 198 198 176 Other 180 120 120 Output: Urine 945 1060 1129 Other: Voiding Method Indwelling Catheter Indwelling Catheter Indwelling Catheter ABP, PAP, CO, CI - Last Documented Arterial Blood Pressure 142/59 - Exam Physical Exam: Gen: this is a 70-year-old male currently sedated and intubated. 40% mechanical ventilation with a PEEP of 5 HEENT: Head is atraumatic, normocephalic. Pupils equal, round. Sclerae is anicteric. NECK: Supple. No JVD. No lymphadenopathy. No thyromegaly. LUNGS: Diminished breath sounds bilaterally with coarse rhonchi and crackles noted. No intercostal retractions. HEART: S1, S2 are muffled ABDOMEN: Soft. Bowel sounds are present. No masses. No tenderness. EXTREMITIES: No pedal edema. No calf tenderness. NEUROLOGICAL: Patient is currently intubated and sedated - Labs CBC & Chem 7: 06/01/21 04:00 06/01/21 04:00 Labs: Abnormal Lab Results - Last 24 Hours (Table) 05/30/21 05/30/21 05/31/21 Range/Units 03:45 23:22 03:45 RBC 3.01 L (4.30-5.90) m/uL Hgb 9.3 L (13.0-17.5) gm/dL Hct 29.6 L (39.0-53.0) % Plt Count 579 H (150-450) k/uL Neutrophils # 9.9 H (1.3-7.7) k/uL Lymphocytes # 0.3 L (1.0-4.8) k/uL ABG pH (7.35-7.45) ABG pCO2 (35-45) mmHg ABG HCO3 (21-25) mmol/L ABG Total CO2 (19-24) mmol/L ABG O2 Saturation (94-97) % Chloride (98-107) mmol/L BUN (9-20) mg/dL Creatinine (0.66-1.25) mg/dL Glucose (74-99) mg/dL POC Glucose (mg/dL) 115 H (75-99) mg/dL AST (17-59) U/L C-Reactive Protein 5.5 H (0.00-0.80) mg/dL Total Protein (6.3-8.2) g/dL Albumin (3.5-5.0) g/dL 05/31/21 05/31/21 05/31/21 Range/Units 03:45 05:38 06:25 RBC (4.30-5.90) m/uL Hgb (13.0-17.5) gm/dL Hct (39.0-53.0) % Plt Count (150-450) k/uL Neutrophils # (1.3-7.7) k/uL Lymphocytes # (1.0-4.8) k/uL ABG pH 7.31 L (7.35-7.45) ABG pCO2 60 H (35-45) mmHg ABG HCO3 30 H (21-25) mmol/L ABG Total CO2 32 H (19-24) mmol/L ABG O2 Saturation 97.4 H (94-97) % Chloride 111 H (98-107) mmol/L BUN 23 H (9-20) mg/dL Creatinine 1.46 H (0.66-1.25) mg/dL Glucose 126 H (74-99) mg/dL POC Glucose (mg/dL) 140 H (75-99) mg/dL AST 15 L (17-59) U/L C-Reactive Protein (0.00-0.80) mg/dL Total Protein 4.7 L (6.3-8.2) g/dL Albumin 2.0 L (3.5-5.0) g/dL 05/31/21 Range/Units 12:17 RBC (4.30-5.90) m/uL Hgb (13.0-17.5) gm/dL Hct (39.0-53.0) % Plt Count (150-450) k/uL Neutrophils # (1.3-7.7) k/uL Lymphocytes # (1.0-4.8) k/uL ABG pH (7.35-7.45) ABG pCO2 (35-45) mmHg ABG HCO3 (21-25) mmol/L ABG Total CO2 (19-24) mmol/L ABG O2 Saturation (94-97) % Chloride (98-107) mmol/L BUN (9-20) mg/dL Creatinine (0.66-1.25) mg/dL Glucose (74-99) mg/dL POC Glucose (mg/dL) 134 H (75-99) mg/dL AST (17-59) U/L C-Reactive Protein (0.00-0.80) mg/dL Total Protein (6.3-8.2) g/dL Albumin (3.5-5.0) g/dL Microbiology - Last 24 Hours (Table) 05/28/21 10:28 Blood Culture - Preliminary Blood No Growth after 72 hours Assessment and Plan Assessment: Assessment: Acute COVID-19 infection with acute COVID-19 bilateral interstitial pneumonia, right more than left with acute hypoxic respiratory failure, now requiring mechanical ventilation with extubation on 05/24/2021, and re-intubation on 05/04 status post peg tube and tracheostomy placement Acute kidney injury secondary to acute tubular necrosis from septic shock Chronic kidney disease stage III secondary to nephrosclerosis Hypoglycemia, improved Change in mental status, metabolic encephalopathy, multifactorial Falling, gait dysfunction Anemia, normocytic anemia of undetermined significance Hypernatremia from poor oral intake Hyperkalemia secondary to acute kidney injury, resolved Elevated d-dimer history of coronary artery disease history of chronic obstructive pulmonary disease Gastroesophageal reflux disease history of bipolar, schizoaffective disorder and schizophrenia History of nicotine dependence Severe protein calorie malnutrition with a BMI of 19.1 No code Plan: Recommend to continue with current medications and follow along closely with multiple medical consultations. Prognosis remains extremely guarded with multiple complex medical issues noted. Patient is status post peg and trach placement and continues on mechanical vent. Sedated now with propofol although attempting sedation holiday to assess mentation and weaning. tube feedings being resumed and lovenox resumed. Recommend continue with current medications and patient has been maintained on IV antibiotics with infectious disease following.. Patient will continue on merrem . Chest x-ray reviewed as mentioned above. Recommend repeat labs in the morning along with chest xray. Nephrology following as well. Again due to multiple complex medical issues prognosis is quite guarded. Code status was addressed with guardian and patient was made No code. Time with Patient: Greater than 30
--- NOTE | 2021-06-01 22:46 | P.PN ---
Subjective Progress Note Date: 06/01/21 This is a 70-year-old male who was recently admitted with change in mental status and fall and also shortness of breath and acute COVID-19 pneumonia and being closely monitored. Patient was continued on high flow oxygen although respiratory status continued to deteriorate and an A team was called. Patient was brought to the ICU for close monitoring and x-ray showed some bilateral lower lobe pneumonia which appears unchanged compared to recent exam with no obvious heart failure. Patient was placed on mechanical vent and intubated and sedated and is being closely monitored. Multiple medical consultations including pulmonary and infectious disease following closely. 05/20/2021 Patient is seen in follow-up activity is to be closely monitored in the ICU. Blood pressure and heart rate has been extremely variable and patient is maintained on D10 in water along with norepinephrine and will continue. Pulmonary and infectious disease following closely. Patient continues with worsening kidney functions nephrology consulted and patient is being given a liter bolus for hypotension and repeat sodium level ordered. Patient also continues on Zosyn and ID following closely. Patient continues with low blood sugar readings as well and we'll continue D10 and close glucose monitoring. Chest x-ray shows some improvement in bibasilar infiltrates more so on the right and possibly developing small right pleural effusion. 05/21/2021 Patient is seen and evaluated this morning continues to be in the ICU with multiple medical consultations following. Patient is continued on IV antibiotics with ID following. Cultures continue to be negative and WBC is 8.5. Patient did have low grade temp today. Patient continues on mechanical vent and sedated. Chest xray similar to previous exam and will continue to monitor. Prognosis remains guarded. Patient also continued on norepinephrine. 05/22/2021 Patient is seen and evaluated today continues to be on mechanical vent with an FiO2 of 40% PEEP is 5. Patient continuing with weaning trials and assist mode on mechanical vent although patient continues to not follow commands per nursing staff. Per pulmonary fractionation supervisor continued attempts at weaning. Chest x-ray shows chronic emphysematous changes and pulmonary fibrosis with moderate bilateral pleural effusions and bilateral multifocal increased opacification consistent with COVID-19 infection are all redemonstrated with no significant change from yesterday. Sputum culture finalized showing Romelia species not albicans, glabrata along with Romelia albicans and infectious disease is foll owing. Patient continues on IV antibiotics in the form of Zosyn. Patient is currently off norepinephrine and receiving Solu-Cortef along with valproic acid and Depakote. Patient is continued on Lovenox for DVT prophylaxis. Patient also continues on D5 in water at 100 mL per hour. Blood gases are improving and pulmonary discussing possible extubation. 05/23/2021 Patient is seen this morning continues to be on mechanical vent with an FiO2 of 40 and a PEEP of 5 with continued weaning trials. Patient is off sedation and does open eyes to verbal stimuli although does not follow commands. Chest x-ray today shows chronic emphysematous and pulmonary fibrotic changes with small size bilateral pleural effusions and bilateral multifocal increased opacification is consistent with COVID-19 infection are again redemonstrated with no significant change from previous. General surgery consulted for possible trach and peg tube placement. 05/24/2021 Patient with spontaneous eye opening during assessment, eyes are tracking, however when asked to squeeze fingers patient unable to do so and did not wiggle toes when asked. He was not responsive to commands or yes or no questions. Continues in the ICU on 5L NC with an oxygen saturation of 91%. He is afebrile, Heart rate is in the 40-50's dropping into the mid 30's. Unclear whether patient is in a heart block, nurse reports HR of 30's seems to be when he is sleeping. EKG will try to be obtained when he is in the 30's. Respirations are 23, blood pressure 135/55. Chest xray today remains unchanged. Possible trach and PEG tube wednesday if needed. Labs today show WBC 7.0, hgb 9.1, D-dimer 0.86, sodium 142, potassium 3.6, BUN 33, creatinine 1.28, glucose in the 130s, calcium 7.8, CRP 1.7, total protein 4.6, albumin 2.0. Multiple consultations. Prognosis remains guarded. 05/25/2021 Throughout the evening patient desaturated and his blood pressure was dropping while on the levophed and his heart rate was increasing and then once he was off the levophed his heart rate was increasing and his blood pressure was dropping. Patient was reintubated with an Fi02 of 60%. Blood gases at the time showed a pCO2 of greater than 120, pH 6.97, pO2 170, total oxygen saturation 98. Oxygen saturations 98%, he is afebrile, pulse rate 43 appears sinus bradycardia on EKG that was obtained midmorning. Blood pressure 135/75. Blood gases have improved with a pH now 7.30, pCO2 57, pO2 57, HCO3 28, total CO2 30 and O2 saturation 87.5. Sodium 140, potassium 3.7, chloride 109, CO2 28, BUN 27, creatinine 1.36, blood glucose 120, calcium 8.1, AST 27, ALT 19, LDH 585, CRP 1.9. Chest x-ray today shows as based consolidation atelectasis and volume loss in the right hemithorax which is slightly compared to exam yesterday. Has pulmonary interstitial edema on the left side without change. Plan is for a PEG, trach tomorrow. Cardiology was consulted and started patient on a dopamine infusion. Patient is on D5 water at 75 mL per hour, levophed infusing, propofol, on IV Zosyn and IV valproic acid. Labs initial white count 13, hemoglobin 10.7, d- dimer 1.84. 05/26/2021 Patient is seen today in follow up in the ICU being closely monitored. Multiple medical consultations following along with general surgery and is scheduled for peg and trach placement today. Tube feedings on hold. Patient continues on mechanical vent and FI02 is 50% peep is 5. Chest xray today shows COPD right greater than left with covid infiltrates and aeration improving now on the right. Potassium is 3.2 and being replaced. Lovenox on hold for the procedure as well. 05/27/2021 Patient is seen in follow-up in the ICU with multiple medical consultations following. Patient is status post PEG and trach placement and will be initiating tube feeds once cleared by surgery. Sputum culture finalized showing E. coli with ESBL and resistance and infectious disease is following. Patient was continued on dopamine along with Levophed and attempting to wean per nursing staff. Patient also continues in D5 water with nephrology following closely. Patient is on IV Zosyn along with nystatin and will continue. Chest x-ray today shows stable portable chest with no evidence of pneumothorax and no change in bibasilar opacities. Patient continues on propofol and FiO2 is 50% with a PEEP of 5. Potassium found a 3.2 and replaced and will repeat labs. 05/28/2021 Patient is seen in follow-up this morning continues to be in the ICU with multiple medical consultations following. Patient is currently continued on mechanical vent via tracheostomy and FiO2 is 40% with a PEEP of 5. Patient is status post peg and trach and surgery following. Patient resumed on lovenox and tube feedings. Tolerating tube feedings thus far. Patient continues on levophed and off dopamine. Patient was on Midodrine and will resume along with his olanzapine and continue to monitor closely. Patient is maintained on Meropenem and ID following closely. Patient also continues on solu-cortef and d5 in water with nephrology following as well. 05/29/2021 Patient is seen and evaluated in follow-up today continues to be in the ICU under close observation with multiple medical consultations following. Patient continues on mechanical ventilation via tracheostomy and FiO2 is 40% and PEEP is 5. Chest xray today shows COPD with continued peripheral and basilar covid infiltrates, similar to slightly worsened from yesterday. Patient continues with sedation holidays to assess mentation although continues to not follow commands appropriately. Patient continues on Levophed as well. IV merrem to continue. 05/30/2021 Patient is seen this morning in the ICU with multiple medical consultations following. Patient continues on vent with an FI02 of 40% and peep is 5. Chest x-ray today shows a curvilinear edge that is now seen at the bilateral apices that could be projectional artifact and recommended follow-up with improved positioning to exclude trace of new biapical pneumothoraces, COPD, increase in small to moderate bilateral pleural effusions with continued patchy mid and lower lung Covid infiltrates. Patient continues on sedation and executive staff assistant working on weaning. Patient will open eyes although not follow any commands. Continues on low dose levophed 05/31/2021 Patient is in the MICU. Admitted to hospital due to acute COVID-19 pneumonia. Currently on mechanical ventilator via tracheostomy tube. Assist-control with respiratory rate 30, tidal volume 350, FiO2 50% and PEEP of 5. Remains on propofol and Nimbex. Currently on D5 water at 75 cc/h. Patient is off pressor support. Patient is being continued on antibiotics in the form of meropenem. Sputum cultures growing Romelia and most recently E. coli. ID is on board. Chest x- ray showed bilateral lung infiltrates with suggestion of mild improvement in the left midlung zone. Laboratory data showed WBC 10.6 hemoglobin 9.3 and platelets 579 Sodium 139 potassium 4.0 chloride 101 bicarb is 28 BUN 23 and creatinine 1.46 albumin 2.0 Patient is on hydrocortisone her milligrams IV every 6 hourly and also on midodr ine. 06/01/2021 Patient is in MICU. Remains on ventilator via tracheostomy tube. FiO2 40% PEEP of 5. Not requiring any pressor support. Patient is being tried on IV hydrocortisone and midodrine. Currently on tube feedings. Chest x-ray showed bilateral opacities in the some interstitial infiltrates in the midlung zones. Upper lungs remain well aerated. No significant change. No pneumothorax. Patient sputum cultures showed E. coli. Repeat cultures have been negative patient remains on antibiotics in the form of meropenem. ID and pulmonary is on board. Laboratory data showed WC 5.6 hemoglobin 9.3 and platelets 462 sodium 137 potassium 4.0 chloride 110 bicarb is 28 BUN 27 creatinine 1.42 and blood sugar 146 ID nephrology and pulmonary is on board. Current medications reviewed. Review of systems: Unable to obtain as patient is mechanically intubated and sedated Objective - Vital Signs Vital signs: Vital Signs Temp 97.1 F L 06/01/21 12:00 Pulse 49 L 06/01/21 14:00 Resp 30 H 06/01/21 14:00 BP 106/56 06/01/21 14:00 Pulse Ox 93 L 06/01/21 14:00 Intake & Output 05/31/21 06/01/21 06/01/21 18:59 06:59 18:59 Intake Total 5599.178 3531.143 1260.236 Output Total 1518 940 925 Balance 430.237 944.143 335.236 Weight 86.5 kg Intake: IV 1176 1176 884 0.9 NaCl- 240 240 160 Dextrose 5% in Water 1, 900 900 600 000 ml @ 75 mls/hr IV . [id number] [facility] Rx#:[id number] Meropenem 100 pressure bag 36 36 24 Intake, IV Titration 328.237 324.143 124.236 Amount Cisatracurium 200 mg In 71.712 Sodium Chloride 0.9% 180 ml @ 2 MCG/KG/MIN 8.964 mls/hr IV .[id number] [facility] Rx #:[id number] Norepinephrine 4 mg In 56.525 41.039 15.614 Sodium Chloride 0.9% 250 ml @ 0.05 MCG/KG/MIN 13. 697 mls/hr IV .[id number] [facility] Rx#:[id number] propofoL 1,000 mg In 200 283.104 108.622 Empty Bag 1 bag @ Titrate IV .Q0M [facility] Rx#: [id number] Tube Feeding 264 264 132 Other 180 120 120 Output: Urine 1518 940 925 Other: Voiding Method Indwelling Catheter Indwelling Catheter Indwelling Catheter ABP, PAP, CO, CI - Last Documented Arterial Blood Pressure 105/46 - Exam Physical Exam: Gen: this is a 70-year-old male currently sedated and intubated. 40% mechanical ventilation with a PEEP of 5 HEENT: Head is atraumatic, normocephalic. Pupils equal, round. Sclerae is anicteric. NECK: Supple. No JVD. No lymphadenopathy. No thyromegaly. LUNGS: Diminished breath sounds bilaterally with coarse rhonchi and crackles noted. No intercostal retractions. HEART: S1, S2 are muffled ABDOMEN: Soft. Bowel sounds are present. No masses. No tenderness. EXTREMITIES: No pedal edema. No calf tenderness. NEUROLOGICAL: Patient is currently intubated and sedated - Labs CBC & Chem 7: 06/01/21 04:00 06/01/21 04:00 Labs: Abnormal Lab Results - Last 24 Hours (Table) 05/31/21 05/31/21 06/01/21 Range/Units 18:13 23:47 04:00 RBC 2.91 L (4.30-5.90) m/uL Hgb 9.3 L (13.0-17.5) gm/dL Hct 28.4 L (39.0-53.0) % Plt Count 562 H (150-450) k/uL Lymphocytes # 0.3 L (1.0-4.8) k/uL ABG pCO2 (35-45) mmHg ABG pO2 (83-108) mmHg ABG HCO3 (21-25) mmol/L ABG Total CO2 (19-24) mmol/L ABG O2 Saturation (94-97) % Chloride (98-107) mmol/L BUN (9-20) mg/dL Creatinine (0.66-1.25) mg/dL Glucose (74-99) mg/dL POC Glucose (mg/dL) 136 H 165 H (75-99) mg/dL 06/01/21 06/01/21 06/01/21 Range/Units 04:00 05:50 11:22 RBC (4.30-5.90) m/uL Hgb (13.0-17.5) gm/dL Hct (39.0-53.0) % Plt Count (150-450) k/uL Lymphocytes # (1.0-4.8) k/uL ABG pCO2 51 H (35-45) mmHg ABG pO2 128 H (83-108) mmHg ABG HCO3 30 H (21-25) mmol/L ABG Total CO2 32 H (19-24) mmol/L ABG O2 Saturation 99.6 H (94-97) % Chloride 110 H (98-107) mmol/L BUN 27 H (9-20) mg/dL Creatinine 1.42 H (0.66-1.25) mg/dL Glucose 146 H (74-99) mg/dL POC Glucose (mg/dL) 137 H (75-99) mg/dL Microbiology - Last 24 Hours (Table) 05/28/21 10:28 Blood Culture - Preliminary Blood No Growth after 96 hours Assessment and Plan Assessment: Assessment: Acute COVID-19 infection with acute COVID-19 bilateral interstitial pneumonia, right more than left with acute hypoxic respiratory failure, now requiring mechanical ventilation with extubation on 05/24/2021, and re-intubation on 05/25/2021 status post peg tube and tracheostomy placement Bacterial pneumonia with sputum cultures growing E. coli Acute kidney injury secondary to acute tubular necrosis from septic shock Chronic kidney disease stage III secondary to nephrosclerosis Hypoglycemia, improved Change in mental status, metabolic encephalopathy, multifactorial Falling, gait dysfunction Anemia, normocytic anemia of undetermined significance Hypernatremia from poor oral intake Hyperkalemia secondary to acute kidney injury, resolved Elevated d-dimer history of coronary artery disease history of chronic obstructive pulmonary disease Gastroesophageal reflux disease history of bipolar, schizoaffective disorder and schizophrenia History of nicotine dependence Severe protein calorie malnutrition with a BMI of 19.1 No code Plan: Recommend to continue with current medications and follow along closely with multiple medical consultations. Prognosis remains extremely guarded with multiple complex medical issues noted. Patient is status post peg and trach placement and continues on mechanical vent. Sedated now with propofol although attempting sedation holiday to assess mentation and weaning. tube feedings being resumed and lovenox resumed. Recommend continue with current medications and patient has been maintained on IV antibiotics with infectious disease following.. Patient will continue on merrem . Chest x-ray reviewed as mentioned above. Recommend repeat labs in the morning along with chest xray. Nephrology following as well. Again due to multiple complex medical issues prognosis is quite guarded. Code status was addressed with guardian and patient was made No code. Time with Patient: Greater than 30
[2021-06-01 23:13] LABS: Glucose,Whole Blood 151 mg/dL (75-99)
[2021-06-02] MEDS: NOREPINEPHRINE 4 MG in SODIUM CHLORIDE 0.9% 250 ML IV SCH (00:30)
[2021-06-02] MEDS: DEXTROSE 5% IN WATER 1,000 ML IV SCH ×2 (02:10→05:28)
[2021-06-02 04:22] LABS: Basophils % (A) 0 %; Eosinophils % (A) 0 %; HCT 30.6 % (39.0-53.0); HGB 9.9 gm/dL (13.0-17.5); Lymphocytes # (A) 0.3 k/uL (1.0-4.8); Lymphocytes % (A) 5 %; MCHC 32.3 g/dL (31.0-37.0); MCV 96.2 fL (80.0-100.0); Mean Platelet Volume 7.6; Monocytes # (A) 0.3 k/uL (0-1.0); Monocytes % (A) 5 %; Neutrophils # (A) 6.1 k/uL (1.3-7.7); Neutrophils % (A) 90 %; Platelet Count 584 k/uL (150-450); RBC 3.18 m/uL (4.30-5.90); RDW 14.9 % (11.5-15.5); WBC 6.8 k/uL (3.8-10.6)
[2021-06-02 04:37] LABS: Calcium 8.3 mg/dL (8.4-10.2); Potassium 3.9 mmol/L (3.5-5.1)
[2021-06-02] MEDS ORDERED: POTASSIUM BICARBONATE/CIT AC 20 MEQ TABLET.EFF NG-TUBE SCH (05:00)
[2021-06-02 05:23] LABS: ABG Base Excess 4.1 mmol/L; ABG HCO3 29 mmol/L (21-25); ABG Oxygen Saturation 98.4 % (94-97); ABG PCO2 45 mmHg (35-45); ABG PH 7.41 (7.35-7.45); ABG PO2 98 mmHg (83-108); ABG TCO2 30 mmol/L (19-24)
[2021-06-02 05:25] LABS: Glucose,Whole Blood 120 mg/dL (75-99)
[2021-06-02 05:25] LABS: Allen Test Performed? no
[2021-06-02] MEDS: MEROPENEM 1 GM in SODIUM CHLORIDE 0.9% 100 ML IVPB SCH ×2 (06:57→14:06)
[2021-06-02] MEDS: MIDODRINE 5 MG TAB PO SCH ×4 (06:57→17:58)
[2021-06-02] MEDS: HYDROCORTISONE SUCCINATE 100 MG/2 ML VIAL IV SCH ×3 (06:57→17:41)
--- NOTE | 2021-06-02 08:26 | XR ---
EXAMINATION TYPE: XR chest 1V DATE OF EXAM: 06/02/2021 CLINICAL HISTORY: Difficulty breathing progress study. TECHNIQUE: Single AP portable semiupright view of the chest is obtained. COMPARISON: Chest x-ray from one day earlier and older studies. FINDINGS: Stable tracheostomy tube. Stable Right internal jugular central venous. Background chronic emphysematous change with bilateral multifocal mid to lower lung opacities redemon strated. Cardiac silhouette size is stable and within normal limits . Osseous structures remain demin eralized. Underlying scoliosis curvature is redemonstrated. IMPRESSION: Chronic emphysematous and pulmonary fibrotic changes with persistent small bilateral pleu ral effusions and lower lung infiltrates and/or atelectasis are redemonstrated. No significant change from one day earlier.
[2021-06-02] MEDS: ALBUTEROL HFA INHALER INHALATION SCH ×4 (08:33→19:11)
--- NOTE | 2021-06-02 09:15 | P.PN ---
<Veronica Chiu M - Last Filed: 06/02/21 09:08> Subjective Progress Note Date: 06/02/21 Principal diagnosis: Acute COVID-19 pneumonia This is a 70-year-old male patient, brought into the emergency department by a caregiver. The patient is unable to volunteer any history. He has issues with dementia and mental health. In fact he is unable to communicate. He is currently in the hospital for COVID pneumonia. The patient initially went to [place] where he was seen in the [facility] for COVID 19 infection. He was discharged home. This is approximately 4 days ago. Following that, the caregiver sent the patient to our hospital as the patient's condition was getting worse and apparently continued to have worsening mentation. The patient was unable to communicate time of his admission. He was mumbling and unable to make full sentences or other words. He was restless in bed. At times agitated. At times screaming. He was quite uncooperative during the evaluation. No hist ory of any head trauma. The patient apparently had a fall and he sustained a trauma to his neck area following the fall. This occurred at home in a bathtub. In the emergency department, the patient was found to be hypoxic with a pulse ox of 80% and the patient required oxygen. The patient is currently on oxygen at 10 L high flow. Initial CAT scan of the brain and the CAT scan of the C- spine showed no acute process. The patient was given 10 mg of Decadron in the emergency department regarding his COVID 19 pneumonia. Chest x-ray showed bilateral lower lobe airspace disease. Note that the pulmonary infiltrates were worse on the right compared to the leftand the infiltrate was rather asymmetric, which obviously raises concerns for an underlying pneumonia, aspiration and the patient was given a dose of Rocephin and Zithromax in the emergency department. His white cell count is at 6.4 with a hemoglobin of 12 and a platelet count of 130. Sodium was 155 this morning with a potassium level of 6.1, BUN is at 50 with a creatinine of 1.5, LFTs are normal, lactic acid level was at 1.9, pro calcitonin level is at 0.16, d-dimer is at 0.8 and the rest of the coagulation profile is within normal limits. The patient is currently on IV Decadron. On 05/19/2021 patient seen in follow-up in the intensive care unit, overnight his condition continued to deteriorate, and early this morning at 4:00 on 05/19/2021 patient had rapid response team called to the bedside for concern of worsening shortness of breath, and worsening hypoxia, patient was confused and in respiratory distress, he is not answering any questions, on 10 L of oxygen his pulse ox was 94%, however his mental status was significantly altered, patient was transferred to the intensive care unit for high likelihood of int ubation, this morning she was intubated and placed on mechanical ventilator, with assist-control mode of ventilation with a rate of 30, tidal on was 300, FiO2 100% and PEEP of 5. Early in the morning his blood gases showed pO2 of 82, pCO2 of 80, and pH of 7.18, this was done and FiO2 of 70%. Post intubation blood gas showed a pO2 of 81, pCO2 of 63, and pH of 7.24, this was done and FiO2 of 50%. Patient was hypotensive following intubation, he was given 2 L of fluid boluses, and his maintenance IV fluid is D5W at 50 ML per hour which will be switched to normal saline, he is on norepinephrine at 0.14 mics per kilo per minute, Diprivan infusion at 50 mics per kilo per minute. He remains on prophylactic Lovenox 40 mg daily, and Decadron 6 mg daily. He remains on his home medications including Lipitor, Plavix, Depakote, iron supplementation, his antipsychotics, midodrine which patient have not been able to take related to his altered mental status. Patient was also suspected to be aspirating, and he was placed on Zosyn for empiric antibiotic coverage. Today's labs have been reviewed, his white blood cell count is 7.1, hemoglobin of 12.7, sodium is 153 and patient has been on D5W at a rate of 100 ML per hour, his oral intake has been extremely poor, potassium is 5.8, chloride is 124, BUN of 69, creatinine is 1.97. Patient's extremely cachectic, and frail. This morning patient had to be intubated and placed on mechanical ventilator, we will initiate tube feedings today, consult registered dietitian for tube feeding recommendation, patient will be fluid bolused, and stabilized hemodynamically. On 05/20/2021 patient seen in follow-up in intensive care unit. Yesterday he was intubated and placed on mechanical ventilator in view of worsening hypoxia and dyspnea. Today he remains sedated, and intubated on assist control mode of ventilation with a rate of 30, tidal volume is 325, FiO2 of 50% and PEEP of 10, this morning blood gases shows pO2 of 95, pCO2 of 70, and pH of 7.18. This was done on the above mentioned ventilator settings, today's chest x-ray shows some improvement of bibasilar infiltrates more so on the right, and possibility of developing small right pleural effusion. Patient is currently on a vasopressor support in the form of norepinephrine is 0.38 mics per kilo per minute which is about 24.7 mics per minute, he is on Diprivan at 50 mics per kilo per minute, and overnight he had episode of hypoglycemia and patient was placed on 10% dextrose at a rate of 100 ML per hour, patient was extremely dehydrated prior to his intubation, his had very poor oral intake. He was given 2 L fluid bolus yesterday, however still requiring vasopressor support, and case was discussed with nephrology who agreed that patient is still extremely intravascular volume depleted, and is recommending another 1 or 2 L fluid bolus today. Today's labs have been reviewed and his white blood cell count is 14.6, hemoglobin is 12.1, platelet count is 223, sodium is 148, potassium is 4.7, chloride is 121, CO2 is 23, BUN of 49 creatinine is 1.93, his LDH is 560, within normal limits, and CRP is 7.2, improving, his last proBNP from a couple days ago was 5790 however patient seems to be extremely dehydrated. His pro calcitonin levels were negative 2 at 0.16, and 0.12 however his chest x-ray findings suggest possibility of aspiration pneumonia, and patient was placed on Zosyn for possibility of aspiration. Sputum culture has been sent and pending, prelimina ry Gram stain showing few PMNs, rare budding yeast, final culture is pending, blood cultures are negative thus far. On 05/21/2021 patient seen in follow-up in intensive care unit, patient remains sedated, and intubated on assist control mode of ventilation with a rate of 36, tidal volume was 375, FiO2 of 40% and 5. The blood count shows pO2 of 71, pCO2 of 41, pH is 7.40, today's chest x-ray has been reviewed showing bilateral airspace disease with interstitial changes and prominent lung volumes indicative of underlying COPD. Vital signs have been stable overnight, patient is on norepinephrine 0.1 mics per kilo per minute, Diprivan is present, and D5W at 100 ML per hour, and plan an 70-20 ML per hour, he is on tube feedings with Nepro at 20 ML per hour and 10 of water flushes, he is in sinus mechanism with a rate of 82 BPM, patient has had fevers overnight with a temp of 100.5F. He is covered with Zosyn. His blood cultures have been negative, his sputum culture showed yeast species, culture is pending. Today's labs have been reviewed and his white blood cell count is 8.5, hemoglobin is 10.4, his sodium is improved and is down to 149, in follow-up sodium level came back at 151, patient remains on free water at 100 ML per hour, nephrology is following. Potassium is 4.0, chloride is 121, BUN is 40, creatinine is improved and is down to 1.58, his cortisol level 7, and this was on IV Decadron 6 mg daily, and patient remains on prophylactic dose Lovenox, Zosyn, yesterday he received an additional liter bolus in IV fluids. His urine output is in the order of 100-125 ML per hour. Overall his oxygenation and ventilation have significantly improved, and patient is maintaining stable O2 saturations on FiO2 of 40% and PEEP of 5, his peak Pressure is only 18, his plateau is 13. On 05/22/2021 patient seen in follow-up in intensive care unit, he remains intubated on mechanical ventilator, currently assist control mode of ventilation with a rate at 36, tidal 375, FiO2 40% and PEEP of 5, this was blood gas shows pO2 of 112, pCO2 40, pH of 7.40 and this was done and the above-mentioned vent settings, today's chest x-ray has been reviewed showing chronic emphysematous pu lmonary fibrotic changes with moderate bilateral pleural effusions and bilateral multifocal increased opacities consistent with COVID-19 infection. No significant change compared the day before. Patient's sedation has been placed on hold this morning. Patient is waking up, becoming slightly restless, however he is not following commands yet. He is on D5W at rate of 100 ML per hour, norepinephrine drip has been weaned off, patient continues on hydrocortisone 100 mg every 8 hours for his serum cortisol level of 7, his TSH level was 0.923, within normal limits. He's tolerating tube feedings he is receiving Nepro at 27 per hour with a goal of 27 standard water flushes, vital signs have been stable, no fever overnight. He did have a low-grade fever early this morning with a temp of 99.7F. His blood cultures have been negative, his sputum culture showed Romelia species. Patient remains on Zosyn for antibiotic coverage, on prophylactic Lovenox 40 mg daily. The rest of patient's labs have been reviewed, his white blood cell count is 6.0, hemoglobin of 9.6, sodium is improving and is down to 148, potassium is 4.0, chloride is 122, BUN is 26, creatinine is improving and is down to 1.55. On 05/23/2021 patient seen in follow-up in the intensive care unit. He remains intubated, on mechanical ventilator, currently on assist control mode of ventilation with a rate of 36, tidal volume 375, FiO2 of 40% and PEEP of 5. This morning's blood gas shows pO2 of 136, pCO2 of 40, and pH of 7.42, this was done and above-mentioned vent settings. Today's chest x-ray has been reviewed showing chronic emphysematous and pulmonary fibrotic changes with small bilateral pleural effusions and bilateral multifocal opacities, without significant change compared to the prior study. Today's labs have been reviewed, white blood cell count is 5.5, hemoglobin is 8.9, sodium is 147, improving potassium is 3.5, chloride is 118, CO2 is 27, BUN 37, creatinine is 1.44. Patient is receiving D5W 1 50 ML per hour, nephrology is managing, he remains on hydrocortisone 100 mg every 8 hours, his been off vasopressor support for 48 hours. He has had no fever or chills. He remains on Zosyn. Sputum culture showed Romelia species, blood cultures have been negative. Neurologically patient has been off sedation for the past 24 hours. However patient is not following commands, although he is awake, at times he becomes restless, his been getting intermittent doses of when necessary on as-needed b asis. We understand patient has underlying history of dementia however his baseline mental status is not known to us, his level of consciousness is certainly improved, however patient has not been able to follow any instructions. And for that reason patient has not been able to tolerate weaning trials, last night he had to be placed on assist-control mode of ventilation because he was extremely anxious, she did tolerate pressure support of 14 and IMV of 10 for a couple of hours, however became very agitated, and was placed back on assist control mode of ventilation. he is tolerating tube feedings. On 05/27/2021 patient seen in follow-up in the intensive care unit, patient remains intubated, and sedated on assist control mode of ventilation with a rate of 30, tidal 350, FiO2 of 50% and PEEP of 5, this morning's blood gas shows pO2 of 89, pCO2 45, pH is 7.3. Today's chest x-ray showing stable portable chest, bibasilar opacities, no significant change from prior exam, patient remains on Diprivan at 35 mics per kilo per minute, dopamine remains at 5 mics per kilo per minute, norepinephrine is at 1.5 mics per minute, D5W remains a 75 ML per hour, and tube feedings are currently on hold for recent trach and PEG placement by Dr. Mazariegos yesterday on 05/26/2021. He's had no acute events overnight. Today's labs have been reviewed, white blood cell count has increased and is currently 24.8, hemoglobin is 10.8, platelet count is 366, sodium is 140, potassium is 3.2, chloride is 112, CO2 is 26, BUN is 18 creatinine is 1.14. Sputum culture from 2 days ago is showing gram-negative bacilli, final culture is still pending, patient currently remains on Zosyn, blood cultures are ne gative On 05/28/2021 patient seen in follow-up in intensive care unit, he remains trached to the ventilator, on assist control mode of ventilation with a rate of 30, tidal vital 350, FiO2 50% and PEEP of 5. He is sedated with Diprivan at 30 mics per kilo per minute, he is on 0.9 normal saline at a 20 ML per hour, D5W at 75 ML per hour, he is requiring small doses of norepinephrine and 5 mics per minute. Patient has been intermittently bradycardic with a heart rate in the low 40s, currently is in sinus mechanism with a rate of 60, his been experiencing intermittent hypotension, episodes of tachycardia. He is hypothermic this morning with a temp of 94.8F, he is on the warming blanket. Patient was found to have ESBL E. coli in his sputum culture, current antibiotic coverage is Avycaz, ID service is following. A new set of blood cultures will be sent, we'll send another cortisone level. Patient currently remains on hydrocortisone at 50 mg twice daily, however he may be experiencing worsening sepsis and septic shock. Today's labs have been reviewed, his white blood cell count is 16.1, hemoglobin is 9.7, d-dimer is 1.11, sodium is 140, potassium is 3.8, chloride is 111, CO2 is 26, BUN is 16 creatinine is 1.1 his LDH is 513, CRP is 15.8. His chest x-ray shows chronic emphysematous and pulmonary fibrotic changes with small right greater than left bilateral pleural effusions and bilateral mid to lower lung infiltrates. On 05/29/2021 patient seen in follow-up in intensive care unit, patient is trached to the ventilator, currently on assist control with a rate of 30, tidal vital 350, FiO2 40%, PEEP of 5, this. Blood gas shows pO2 of 94, pCO2 55, and pH of 7.31. Today's chest x-ray shows COPD with peripheral and basilar COVID infiltrates, similar to prior, slightly worsened. Patient has been afebrile overnight, no hyperthermia, he is hypotensive, requiring levo fed at 10 mics per minute. Yesterday we switched his antibiotic coverage from Avycaz to Meropenem in view of ESBL E. coli in his sputum. 2 more blood cultures have been sent, pending at this time. Cortisol level yesterday was 18, hydrocortisone level was increased to 50 mg 3 times a day. Urine output is any order of 30-60 ML per hour. Today's labs have been reviewed, blood blood cell count is improving down to 15.6, hemoglobin is 10.2, sodium is 140, potassium is 4.3, chloride is 112, CO2 is 26, B1 is 16, creatinine is 1.23. LDH is 426 within normal limits, CRP is 12.5. On 06/02/2021 patient seen in follow-up in the intensive care unit. Patient is currently trached to the ventilator, he is on assist-control mode of ventilation with a rate of 30, tidal lungs 350, FiO2 of 40 percent, and PEEP of 5, this morning's blood gas shows pO2 of 98, pCO2 45, pH of 7.41. O2 saturation is 97% on those above-mentioned ventilator settings, peak pressures 41, plateau pressure is 22. Today's chest x-ray showing chronic emphysematous and pulmonary fibrotic changes with persistent small bilateral pleural effusions and lower lung infiltrates and atelectasis. No significant change from the prior exam. Patient is currently on D5W at a rate of 75 ML per hour, he is requiring small dose of norepinephrine and propofol at 40 mics per kilo per minute. Patient was given a sedation holiday yesterday and per nursing reports patient was opening eyes spontaneously however not following any instructions. Patient was placed back on sedation at at bedtime. Today's blood work has been reviewed showing white blood cell count is 6.8, hemoglobin of 9.9, platelet count is 584, sodium is 138, potassium is 3.9, chloride is 110, B1 is 30 creatinine is 1.33. Patient's inflammatory markers from a few days ago show a normal LDH of 413, CRP of 5.5. Patient is currently being treated for ESBL E. coli pneumonia, and patient is covered with meropenem. Vital signs have been stable overnight, patient has been afebrile. Michelle catheter is in place, and urine output is in order of 100-150 ML per hour. Is tolerating tube feedings he is receiving Nepro 2.2 at 22 ML per hour with standard water flushes 30 mL every 4 hours. Patient has been on stress doses of hydrocortisone at 100 mg every 6 hours. He is also on midodrine 10 mg 3 times daily, he is on prophylactic dose Lovenox 40 mg once daily, and Protonix for GI prophylaxis, generally patient has diffuse edema in his trunk, upper and lower extremities, and overall he is in +27 kg net fluid balance since admission. Patient has had D5W infusion infusing at 75 ML per hour for hypernatremia and hypoglycemia since 05/21/2021. Patient is tolerating tube feedings there has been no recurrence of hypoglycemia and at this time D5W can be safely discontinued. Objective - Vital Signs Vital signs: Vital Signs Temp 98.1 F 06/02/21 04:00 Pulse 63 06/02/21 07:00 Resp 22 06/02/21 07:00 BP 112/62 06/02/21 07:00 Pulse Ox 95 06/02/21 07:00 Intake & Output 06/01/21 06/02/21 06/02/21 18:59 06:59 18:59 Intake Total 2034.936 1596.617 331.106 Output Total 1350 1360 100 Balance 684.936 236.617 231.106 Weight 89 kg Intake: IV 1376 1018 195 0.9 NaCl- 240 240 20 Dextrose 5% in Water 1, 900 675 75 000 ml @ 75 mls/hr IV . [id number] [facility] Rx#:[id number] Meropenem 200 100 100 pressure bag 36 3 Intake, IV Titration 214.936 224.617 114.106 Amount Norepinephrine 4 mg In 15.614 47.249 14.106 Sodium Chloride 0.9% 250 ml @ 0.05 MCG/KG/MIN 13. 697 mls/hr IV .[id number] [facility] Rx#:[id number] propofoL 1,000 mg In 199.322 177.368 100 Empty Bag 1 bag @ Titrate IV .Q0M [facility] Rx#: [id number] Tube Feeding 264 264 22 Other 180 90 Output: Urine 1350 1360 100 Other: Voiding Method Indwelling Catheter Indwelling Catheter ABP, PAP, CO, CI - Last Documented Arterial Blood Pressure 115/58 - Exam GENERAL EXAM: Extremely frail and cachectic 70-year-old white male, trached to the ventilator on assist control mode of ventilation with a rate of 30, tidal on his 350, FiO2 40% and PEEP of 5, comfortable in no apparent distress. HEAD: Normocephalic/atraumatic. EYES: Normal reaction of pupils, equal size. Conjunctiva pink, sclera white. NOSE: Clear with pink turbinates. THROAT: No erythema or exudates. NECK: No masses, no JVD, no thyroid enlargement, no adenopathy. Midline tracheostomy in place, clean dry and intact, and patient is connected to the ventilator with assist control mode of ventilation CHEST: No chest wall deformity. Symmetrical expansion. LUNGS: Equal air entry with diminished breath sounds and crackles CVS: Regular rate and rhythm, normal S1 and S2, no gallops, no murmurs, no rubs ABDOMEN: Soft, nontender. No hepatosplenomegaly, normal bowel sounds, no guarding or rigidity. PEG tube is in place EXTREMITIES: No clubbing, with severe generalized swelling noted in upper and lower extremities no cyanosis, and truncal edema, 2+ pulses and upper and lower extremities. MUSCULOSKELETAL: Muscle strength and tone normal. SPINE: No scoliosis or deformity SKIN: No rashes. His and has various areas of decubitus ulcers, stage II with his ulcers on buttocks, bilateral hips, left elbow, and deep tissue injury on his bilateral heels CENTRAL NERVOUS SYSTEM: Sedated, intubated No focal deficits, tone is normal in all 4 extremities. - Labs CBC & Chem 7: 06/02/21 04:04 06/02/21 04:04 Labs: Abnormal Lab Results - Last 24 Hours (Table) 06/01/21 06/01/21 06/01/21 Range/Units 11:22 17:43 23:12 RBC (4.30-5.90) m/uL Hgb (13.0-17.5) gm/dL Hct (39.0-53.0) % Plt Count (150-450) k/uL Lymphocytes # (1.0-4.8) k/uL ABG HCO3 (21-25) mmol/L ABG Total CO2 (19-24) mmol/L ABG O2 Saturation (94-97) % Chloride (98-107) mmol/L BUN (9-20) mg/dL Creatinine (0.66-1.25) mg/dL Glucose (74-99) mg/dL POC Glucose (mg/dL) 137 H 111 H 151 H (75-99) mg/dL Calcium (8.4-10.2) mg/dL 06/02/21 06/02/21 06/02/21 Range/Units 04:04 04:04 05:21 RBC 3.18 L (4.30-5.90) m/uL Hgb 9.9 L (13.0-17.5) gm/dL Hct 30.6 L (39.0-53.0) % Plt Count 584 H (150-450) k/uL Lymphocytes # 0.3 L (1.0-4.8) k/uL ABG HCO3 29 H (21-25) mmol/L ABG Total CO2 30 H (19-24) mmol/L ABG O2 Saturation 98.4 H (94-97) % Chloride 110 H (98-107) mmol/L BUN 30 H (9-20) mg/dL Creatinine 1.33 H (0.66-1.25) mg/dL Glucose 129 H (74-99) mg/dL POC Glucose (mg/dL) (75-99) mg/dL Calcium 8.3 L (8.4-10.2) mg/dL 06/02/21 Range/Units 05:24 RBC (4.30-5.90) m/uL Hgb (13.0-17.5) gm/dL Hct (39.0-53.0) % Plt Count (150-450) k/uL Lymphocytes # (1.0-4.8) k/uL ABG HCO3 (21-25) mmol/L ABG Total CO2 (19-24) mmol/L ABG O2 Saturation (94-97) % Chloride (98-107) mmol/L BUN (9-20) mg/dL Creatinine (0.66-1.25) mg/dL Glucose (74-99) mg/dL POC Glucose (mg/dL) 120 H (75-99) mg/dL Calcium (8.4-10.2) mg/dL Microbiology - Last 24 Hours (Table) 05/28/21 10:28 Blood Culture - Preliminary Blood No Growth after 96 hours Assessment and Plan Plan: Assessment: #1. Acute hypoxic respiratory failure related to acute COVID-19 pneumonia, and possibility of bacterial infection/aspiration related pneumonia is not entirely excluded, sputum culture showed ESBL E. coli, and patient will be covered with meropenem. ID service is on the case. Patient was brought into the emergency department on 05/17/2021 per EMS, patient is a poor historian, reportedly has history of bipolar disease and dementia. Came in primarily for evaluation of altered mental status. Transferred from [place] emergency department for COVID -19 related pneumonia. The patient was taken to the hospital in [place] 4 days prior to this admission and the symptom onset was probably even prior to that. Exact onset of symptoms is not known. Patient was transferred to the intensive care unit on 05/19/2021 for worsening hypoxia, and hypercapnia, and altered mental status, and was intubated on 05/19/2021 on assist control mode of ventilation with a rate of 30, tidal on his 350, FiO2 40% and PEEP of 5. Patient had tolerated pressure support trials, and was extubated on 05/24/2021 however failed and was reintubated on 05/25/2021 #2. Acute hypercapnic respiratory failure, related to acute aspiration, and possible COVID-19 pneumonia, requiring intubation and mechanical ventilator support #3. Hypotension, related to dehydration, and possibility of septic shock. Patient remains on norepinephrine for vasopressor support, serum cortisol level was only 7, patient remains on stress doses of hydrocortisone of 100 mg every 6 hours #4. Altered mental status with worsened from baseline #5. History of dementia and schizoaffective disorder #6. Acute dehydration and hypernatremia, on the D5W at 100 ML per hour, resolved #7. Chronic stage 3 kidney disease #8. COPD #9. History of coronary artery disease #10. GERD/reflux #11. Hyperlipidemia #12. Acute kidney injury related to ATN, and dehydration #13. Hyperkalemia related to GUAD[place]UPE, resolved #14. Hypoglcemia, was placed on D10 at 100 ml, will start tube feeds today. Blood sugars improved #15. Multiple areas of decubitus ulcer including deep tissue injury on bilateral heels, stage II on buttocks, stage II on bilateral hips and stage I on left elbow, present on admission Plan: Today's blood gases, labs, CXR and labs reviewed Decrease the FiO2 down to 35% Patient will be started on IV Lasix 40 mg every 12 hours We'll cut IV fluids to KVO, Continue with antibiotics of ID service recommendation, patient remains on meropenem for ESBL E. coli pneumonia We'll proceed with sedation holiday, We will leave the sedation off if patient remains calm, Possibly we will attempt pressure-support trials with pressure-support of 5 and CPAP of 5 Wean vasopressor support Continue with hydrocortisone 100 mg every 6 hours Continue supportive treatment, Continue gentle DVT prophylaxis Continue to closely follow his progress in the intensive care unit I performed a history & physical examination of the patient and discussed their management with my nurse practitioner, Veronica Chiu. I reviewed the nurse practitioner's note and agree with the documented findings and plan of care. Lung sounds are positive for diminished breath sounds throughout the lung watson. The findings and the impression was discussed with the patient. I atte st to the documentation by the nurse practitioner. Time with Patient: Greater than 30 <Artinian,Vasken - Last Filed: 06/02/21 09:19> Objective - Vital Signs Vital signs: Vital Signs Temp 98.1 F 06/02/21 04:00 Pulse 63 06/02/21 07:00 Resp 22 06/02/21 07:00 BP 112/62 06/02/21 07:00 Pulse Ox 95 06/02/21 07:00 Intake & Output 06/01/21 06/02/21 06/02/21 18:59 06:59 18:59 Intake Total 2034.936 1596.617 331.106 Output Total 1350 1360 100 Balance 684.936 236.617 231.106 Weight 89 kg Intake: IV 1376 1018 195 0.9 NaCl- 240 240 20 Dextrose 5% in Water 1, 900 675 75 000 ml @ 75 mls/hr IV . [id number] [facility] Rx#:[id number] Meropenem 200 100 100 pressure bag 36 3 Intake, IV Titration 214.936 224.617 114.106 Amount Norepinephrine 4 mg In 15.614 47.249 14.106 Sodium Chloride 0.9% 250 ml @ 0.05 MCG/KG/MIN 13. 697 mls/hr IV .[id number] [facility] Rx#:[id number] propofoL 1,000 mg In 199.322 177.368 100 Empty Bag 1 bag @ Titrate IV .Q0M [facility] Rx#: [id number] Tube Feeding 264 264 22 Other 180 90 Output: Urine 1350 1360 100 Other: Voiding Method Indwelling Catheter Indwelling Catheter ABP, PAP, CO, CI - Last Documented Arterial Blood Pressure 115/58 - Labs CBC & Chem 7: 06/02/21 04:04 06/02/21 04:04 Labs: Abnormal Lab Results - Last 24 Hours (Table) 06/01/21 06/01/21 06/01/21 Range/Units 11:22 17:43 23:12 RBC (4.30-5.90) m/uL Hgb (13.0-17.5) gm/dL Hct (39.0-53.0) % Plt Count (150-450) k/uL Lymphocytes # (1.0-4.8) k/uL ABG HCO3 (21-25) mmol/L ABG Total CO2 (19-24) mmol/L ABG O2 Saturation (94-97) % Chloride (98-107) mmol/L BUN (9-20) mg/dL Creatinine (0.66-1.25) mg/dL Glucose (74-99) mg/dL POC Glucose (mg/dL) 137 H 111 H 151 H (75-99) mg/dL Calcium (8.4-10.2) mg/dL 06/02/21 06/02/21 06/02/21 Range/Units 04:04 04:04 05:21 RBC 3.18 L (4.30-5.90) m/uL Hgb 9.9 L (13.0-17.5) gm/dL Hct 30.6 L (39.0-53.0) % Plt Count 584 H (150-450) k/uL Lymphocytes # 0.3 L (1.0-4.8) k/uL ABG HCO3 29 H (21-25) mmol/L ABG Total CO2 30 H (19-24) mmol/L ABG O2 Saturation 98.4 H (94-97) % Chloride 110 H (98-107) mmol/L BUN 30 H (9-20) mg/dL Creatinine 1.33 H (0.66-1.25) mg/dL Glucose 129 H (74-99) mg/dL POC Glucose (mg/dL) (75-99) mg/dL Calcium 8.3 L (8.4-10.2) mg/dL 06/02/21 Range/Units 05:24 RBC (4.30-5.90) m/uL Hgb (13.0-17.5) gm/dL Hct (39.0-53.0) % Plt Count (150-450) k/uL Lymphocytes # (1.0-4.8) k/uL ABG HCO3 (21-25) mmol/L ABG Total CO2 (19-24) mmol/L ABG O2 Saturation (94-97) % Chloride (98-107) mmol/L BUN (9-20) mg/dL Creatinine (0.66-1.25) mg/dL Glucose (74-99) mg/dL POC Glucose (mg/dL) 120 H (75-99) mg/dL Calcium (8.4-10.2) mg/dL Microbiology - Last 24 Hours (Table) 05/28/21 10:28 Blood Culture - Preliminary Blood No Growth after 96 hours Assessment and Plan Plan: Noted that the patient has been a significant significant positive fluid balance. We'll start the patient on diuretics. We'll monitor the fluid balance. We'll continue the IV meropenem. Sedation holiday. Assessment patient. Check weaning parameters. Critically care evaluation that was on a more than 30 minutes.
[2021-06-02] MEDS: FERROUS SULFATE 325 MG TAB PO SCH (09:36)
[2021-06-02] MEDS: FUROSEMIDE 10 MG/ML 4 ML VIAL IV SCH ×2 (09:36→21:28)
[2021-06-02] MEDS: PANTOPRAZOLE 40 MG/10 ML VIAL IVP SCH (09:36)
[2021-06-02] MEDS: FOLIC ACID 1 MG TAB PO SCH (09:36)
[2021-06-02] MEDS: ENOXAPARIN 40 MG/0.4 ML SYRINGE SQ SCH (09:36)
[2021-06-02] MEDS: NYSTATIN 100,000 UNIT/ML SUSP 500,000 UNIT/5 ML CUP PO SCH ×4 (09:38→21:28)
[2021-06-02] MEDS: OLANZapine ODT 5 MG TAB PO SCH (10:07)
[2021-06-02] MEDS: HYDROmorphone 1 MG/ML 1 ML SYRINGE IVP PRN (10:45)
[2021-06-02 11:43] LABS: Glucose,Whole Blood 104 mg/dL (75-99)
[2021-06-02] MEDS: DEXMEDETOMIDINE/0.9% NACL(PMX) 400 MCG in EMPTY BAG 1 BAG IV SCH (12:27)
--- NOTE | 2021-06-02 16:02 | P.PN ---
Subjective Progress Note Date: 06/02/21 CHIEF COMPLAINT: COVID-19 pneumonia HISTORY OF PRESENT ILLNESS: Patient is in the ICU intubated and sedated. Patient is status post PEG tube and tracheostomy placement on 05/26/21. Patient was noted to have a small cuff leak. His tidal volumes have been stable. Patient is tolerating tube feeds. They're weaning his vasopressor support. Patient to have a sedation holiday today. Patient seen and examined with Dr. bill PHYSICAL EXAM: VITAL SIGNS: Reviewed. GENERAL: no acute distress. HEENT: Moist buccal mucosa. Head is atraumatic, normocephalic. Tracheostomy site clean dry and intact ABDOMEN: Soft. Nondistended. PEG tube site clean dry and intact NEUROLOGIC: Intubated and sedated ASSESSMENT: 1. Acute hypoxic respiratory failure secondary to COVID-19 pneumonia with mechanical ventilation and difficulty weaning from the vent status post tracheostomy placement 2. Severe protein calorie malnutrition status post PEG tube placement PLAN: -Continue tube feedings -Continue supportive care -Continue ICU management Physician Team Foreman note has been reviewed by physician. Signing provider agrees with the documented findings, assessment, and plan of care. Objective - Vital Signs Vital signs: Vital Signs Temp 96.7 F L 06/02/21 12:00 Pulse 46 L 06/02/21 14:30 Resp 16 06/02/21 14:30 BP 141/73 06/02/21 14:30 Pulse Ox 95 06/02/21 14:30 Intake & Output 06/01/21 06/02/21 06/02/21 18:59 06:59 18:59 Intake Total 2034.936 1596.617 771.585 Output Total 1350 1360 2325 Balance 684.936 236.617 -1553.415 Weight 89 kg 89 kg Intake: IV 1376 1018 451 0.9 NaCl- 240 240 160 Dextrose 5% in Water 1, 900 675 170 000 ml @ 75 mls/hr IV . [id number] [facility] Rx#:[id number] Meropenem 200 100 100 pressure bag 36 3 21 Intake, IV Titration 214.936 224.617 180.585 Amount Dexmedetomidine/0.9% NaCl 13.683 (Pmx) 400 mcg In Empty Bag 1 bag @ 0.2 MCG/KG/HR 4.45 mls/hr IV .[id number] [facility] Rx#:[id number] Norepinephrine 4 mg In 15.614 47.249 25.728 Sodium Chloride 0.9% 250 ml @ 0.05 MCG/KG/MIN 13. 697 mls/hr IV .[id number] [facility] Rx#:[id number] propofoL 1,000 mg In 199.322 177.368 141.174 Empty Bag 1 bag @ Titrate IV .Q0M [facility] Rx#: [id number] Tube Feeding 264 264 110 Other 180 90 30 Output: Urine 1350 1360 2325 Other: Voiding Method Indwelling Catheter Indwelling Catheter Indwelling Catheter ABP, PAP, CO, CI - Last Documented Arterial Blood Pressure 162/69 - Labs CBC & Chem 7: 06/02/21 04:04 06/02/21 04:04 Labs: Abnormal Lab Results - Last 24 Hours (Table) 06/01/21 06/01/21 06/02/21 Range/Units 17:43 23:12 04:04 RBC 3.18 L (4.30-5.90) m/uL Hgb 9.9 L (13.0-17.5) gm/dL Hct 30.6 L (39.0-53.0) % Plt Count 584 H (150-450) k/uL Lymphocytes # 0.3 L (1.0-4.8) k/uL ABG HCO3 (21-25) mmol/L ABG Total CO2 (19-24) mmol/L ABG O2 Saturation (94-97) % Chloride (98-107) mmol/L BUN (9-20) mg/dL Creatinine (0.66-1.25) mg/dL Glucose (74-99) mg/dL POC Glucose (mg/dL) 111 H 151 H (75-99) mg/dL Calcium (8.4-10.2) mg/dL 06/02/21 06/02/21 06/02/21 Range/Units 04:04 05:21 05:24 RBC (4.30-5.90) m/uL Hgb (13.0-17.5) gm/dL Hct (39.0-53.0) % Plt Count (150-450) k/uL Lymphocytes # (1.0-4.8) k/uL ABG HCO3 29 H (21-25) mmol/L ABG Total CO2 30 H (19-24) mmol/L ABG O2 Saturation 98.4 H (94-97) % Chloride 110 H (98-107) mmol/L BUN 30 H (9-20) mg/dL Creatinine 1.33 H (0.66-1.25) mg/dL Glucose 129 H (74-99) mg/dL POC Glucose (mg/dL) 120 H (75-99) mg/dL Calcium 8.3 L (8.4-10.2) mg/dL 06/02/21 Range/Units 11:40 RBC (4.30-5.90) m/uL Hgb (13.0-17.5) gm/dL Hct (39.0-53.0) % Plt Count (150-450) k/uL Lymphocytes # (1.0-4.8) k/uL ABG HCO3 (21-25) mmol/L ABG Total CO2 (19-24) mmol/L ABG O2 Saturation (94-97) % Chloride (98-107) mmol/L BUN (9-20) mg/dL Creatinine (0.66-1.25) mg/dL Glucose (74-99) mg/dL POC Glucose (mg/dL) 104 H (75-99) mg/dL Calcium (8.4-10.2) mg/dL Microbiology - Last 24 Hours (Table) 05/28/21 10:28 Blood Culture - Preliminary Blood No Growth after 120 hours
[2021-06-02 17:28] LABS: Glucose,Whole Blood 110 mg/dL (75-99)
[2021-06-02] MEDS ORDERED: CISATRACURIUM 2 MG/ML 5 ML VIAL IV ONE (20:19)
[2021-06-02] MEDS ORDERED: CISATRACURIUM 200 MG in SODIUM CHLORIDE 0.9% 180 ML IV SCH (20:30)
[2021-06-02] MEDS ORDERED: RACEPINEPHRINE 2.25% NEB 0.5 ML NEBU INHALATION ONE (20:32)
[2021-06-02] MEDS ORDERED: RACEPINEPHRINE 2.25% NEB 0.5 ML NEBU INHALATION STA (20:43)
--- NOTE | 2021-06-02 20:57 | XR ---
EXAMINATION TYPE: XR chest 1V portable DATE OF EXAM: 06/02/2021 COMPARISON: Today HISTORY: Short of breath TECHNIQUE: Single view FINDINGS: There is blunting of the costophrenic angles. Heart size is normal. There is mild pulmonary congestion. There are chest leads. There is tracheostomy tube. IMPRESSION: Pleural effusions with basilar pulmonary infiltrates and mild congestion. Mild heart fail ure is possible. No change compared to exam earlier this morning.
[2021-06-02] MEDS: ATORVASTATIN 20 MG TAB PO SCH (21:28)
[2021-06-02] MEDS: OLANZapine ODT 10 MG TAB PO SCH (21:28)
--- NOTE | 2021-06-02 22:06 | P.PN ---
Subjective Progress Note Date: 06/02/21 Principal diagnosis: COVID-19 pneumonia Interval history: Patient is a 70-year-old male presented to the hospital with acute respiratory failure in this but have a evidence of multifocal pneumonia secondary to COVID-19. Patient did have worsening of his respiratory status requiring intubation on 05/19/2021, patient has been extubated on 05/24/2021 however the patient did have worsening of his respiratory status and inability intubated night of 05/24/2021, patient is status post trach and PEG on 05/26/2021 On today's evaluation that is 06/02/2021, The patient is afebrile, the patient is hemodynamically stable , the patient FiO2 is stable at 40% no significant pu rulent secretions through the ET or diarrhea has been reported by the nursing staff, patient remains to be unresponsive Objective - Vital Signs Vital signs: Vital Signs Temp 96.9 F L 06/02/21 16:00 Pulse 93 06/02/21 20:45 Resp 22 06/02/21 20:45 BP 123/68 06/02/21 20:45 Pulse Ox 100 06/02/21 20:45 Intake & Output 06/02/21 06/02/21 06/03/21 06:59 18:59 06:59 Intake Total 6449.716 6971.285 104.569 Output Total 1360 3730 45 Balance 236.617 -2631.715 59.569 Weight 89 kg 89 kg Intake: IV 1018 543 23 0.9 NaCl- 240 240 20 Dextrose 5% in Water 1, 675 170 000 ml @ 75 mls/hr IV . [id number] [facility] Rx#:[id number] Meropenem 100 100 pressure bag 3 33 3 Intake, IV Titration 224.617 207.285 50.569 Amount Dexmedetomidine/0.9% NaCl 40.383 30.557 (Pmx) 400 mcg In Empty Bag 1 bag @ 0.2 MCG/KG/HR 4.45 mls/hr IV .[id number] [facility] Rx#:[id number] Norepinephrine 4 mg In 47.249 25.728 10.044 Sodium Chloride 0.9% 250 ml @ 0.05 MCG/KG/MIN 13. 697 mls/hr IV .[id number] [facility] Rx#:[id number] propofoL 1,000 mg In 177.368 141.174 9.968 Empty Bag 1 bag @ Titrate IV .Q0M [facility] Rx#: [id number] Tube Feeding 264 318 31 Other 90 30 Output: Urine 1360 3730 45 Other: Voiding Method Indwelling Catheter Indwelling Catheter ABP, PAP, CO, CI - Last Documented Arterial Blood Pressure 139/58 - Exam General description is an elderly male intubated on the vent Respiratory system:Unlabored breathing, decreased intensity in breath sounds. Heart S1, S2. Regular rate and rhythm. Abdomen soft, no tenderness. Extremities: No edema feet - Labs CBC & Chem 7: 06/02/21 04:04 06/02/21 04:04 Labs: Abnormal Lab Results - Last 24 Hours (Table) 06/01/21 06/02/21 06/02/21 Range/Units 23:12 04:04 04:04 RBC 3.18 L (4.30-5.90) m/uL Hgb 9.9 L (13.0-17.5) gm/dL Hct 30.6 L (39.0-53.0) % Plt Count 584 H (150-450) k/uL Lymphocytes # 0.3 L (1.0-4.8) k/uL ABG HCO3 (21-25) mmol/L ABG Total CO2 (19-24) mmol/L ABG O2 Saturation (94-97) % Chloride 110 H (98-107) mmol/L BUN 30 H (9-20) mg/dL Creatinine 1.33 H (0.66-1.25) mg/dL Glucose 129 H (74-99) mg/dL POC Glucose (mg/dL) 151 H (75-99) mg/dL Calcium 8.3 L (8.4-10.2) mg/dL 06/02/21 06/02/21 06/02/21 Range/Units 05:21 05:24 11:40 RBC (4.30-5.90) m/uL Hgb (13.0-17.5) gm/dL Hct (39.0-53.0) % Plt Count (150-450) k/uL Lymphocytes # (1.0-4.8) k/uL ABG HCO3 29 H (21-25) mmol/L ABG Total CO2 30 H (19-24) mmol/L ABG O2 Saturation 98.4 H (94-97) % Chloride (98-107) mmol/L BUN (9-20) mg/dL Creatinine (0.66-1.25) mg/dL Glucose (74-99) mg/dL POC Glucose (mg/dL) 120 H 104 H (75-99) mg/dL Calcium (8.4-10.2) mg/dL 06/02/21 Range/Units 17:26 RBC (4.30-5.90) m/uL Hgb (13.0-17.5) gm/dL Hct (39.0-53.0) % Plt Count (150-450) k/uL Lymphocytes # (1.0-4.8) k/uL ABG HCO3 (21-25) mmol/L ABG Total CO2 (19-24) mmol/L ABG O2 Saturation (94-97) % Chloride (98-107) mmol/L BUN (9-20) mg/dL Creatinine (0.66-1.25) mg/dL Glucose (74-99) mg/dL POC Glucose (mg/dL) 110 H (75-99) mg/dL Calcium (8.4-10.2) mg/dL Microbiology - Last 24 Hours (Table) 05/28/21 10:28 Blood Culture - Preliminary Blood No Growth after 120 hours Assessment and Plan (1) Aspiration pneumonia Current Visit: Yes Status: Acute Code(s): J69.0 - PNEUMONITIS DUE TO INHALATION OF FOOD AND VOMIT SNOMED Code(s): 494940870 (2) COVID-19 Current Visit: Yes Status: Acute Code(s): U07.1 - COVID-19 SNOMED Code(s): 899091493 Plan: Patient with acute respiratory failure which is multifactorial in this patient with initial diagnosis of COVID-19 pneumonia in this patient did have significant worsening of his respiratory status requiring intubation and concern for possible aspiration pneumonitis, status post trach and peg, patient's sputum has been finalized with ESBL E. coli, patient is currently covered with meropenem 1 g every 8 hours and monitor clinical course closely Time with Patient: Less than 30
[2021-06-02 23:56] LABS: Glucose,Whole Blood 114 mg/dL (75-99)
[2021-06-03] MEDS: ARTIFICIAL TEARS-HYPROMELLOSE DROPS 15 ML BTL BOTH EYES SCH ×7 (00:01→23:48)
[2021-06-03] MEDS: HYDROCORTISONE SUCCINATE 100 MG/2 ML VIAL IV SCH ×5 (00:01→23:41)
--- NOTE | 2021-06-03 02:11 | P.PN ---
Subjective Progress Note Date: 06/02/21 This is a 70-year-old male who was recently admitted with change in mental status and fall and also shortness of breath and acute COVID-19 pneumonia and being closely monitored. Patient was continued on high flow oxygen although respiratory status continued to deteriorate and an A team was called. Patient was brought to the ICU for close monitoring and x-ray showed some bilateral lower lobe pneumonia which appears unchanged compared to recent exam with no obvious heart failure. Patient was placed on mechanical vent and intubated and sedated and is being closely monitored. Multiple medical consultations including pulmonary and infectious disease following closely. 05/20/2021 Patient is seen in follow-up activity is to be closely monitored in the ICU. Blood pressure and heart rate has been extremely variable and patient is maintained on D10 in water along with norepinephrine and will continue. Pulmonary and infectious disease following closely. Patient continues with worsening kidney functions nephrology consulted and patient is being given a liter bolus for hypotension and repeat sodium level ordered. Patient also continues on Zosyn and ID following closely. Patient continues with low blood sugar readings as well and we'll continue D10 and close glucose monitoring. Chest x-ray shows some improvement in bibasilar infiltrates more so on the right and possibly developing small right pleural effusion. 05/21/2021 Patient is seen and evaluated this morning continues to be in the ICU with multiple medical consultations following. Patient is continued on IV antibiotics with ID following. Cultures continue to be negative and WBC is 8.5. Patient did have low grade temp today. Patient continues on mechanical vent and sedated. Chest xray similar to previous exam and will continue to monitor. Prognosis remains guarded. Patient also continued on norepinephrine. 05/22/2021 Patient is seen and evaluated today continues to be on mechanical vent with an FiO2 of 40% PEEP is 5. Patient continuing with weaning trials and assist mode on mechanical vent although patient continues to not follow commands per nursing staff. Per pulmonary entry level recruiter continued attempts at weaning. Chest x-ray shows chronic emphysematous changes and pulmonary fibrosis with moderate bilater al pleural effusions and bilateral multifocal increased opacification consistent with COVID-19 infection are all redemonstrated with no significant change from yesterday. Sputum culture finalized showing Romelia species not albicans, glabrata along with Romelia albicans and infectious disease is following. Patient continues on IV antibiotics in the form of Zosyn. Patient is currently off norepinephrine and receiving Solu-Cortef along with valproic acid and Depakote. Patient is continued on Lovenox for DVT prophylaxis. Patient also continues on D5 in water at 100 mL per hour. Blood gases are improving and pulmonary discussing possible extubation. 05/23/2021 Patient is seen this morning continues to be on mechanical vent with an FiO2 of 40 and a PEEP of 5 with continued weaning trials. Patient is off sedation and does open eyes to verbal stimuli although does not follow commands. Chest x-ray today shows chronic emphysematous and pulmonary fibrotic changes with small size bilateral pleural effusions and bilateral multifocal increased opacification is consistent with COVID-19 infection are again redemonstrated with no significant change from previous. General surgery consulted for possible trach and peg tube placement. 05/24/2021 Patient with spontaneous eye opening during assessment, eyes are tracking, however when asked to squeeze fingers patient unable to do so and did not wiggle toes when asked. He was not responsive to commands or yes or no questions. Continues in the ICU on 5L NC with an oxygen saturation of 91%. He is afebrile, Heart rate is in the 40-50's dropping into the mid 30's. Unclear whether patient is in a heart block, nurse reports HR of 30's seems to be when he is sleeping. EKG will try to be obtained when he is in the 30's. Respirations are 23, blood pressure 135/55. Chest xray today remains unchanged. Possible trach and PEG tube wednesday if needed. Labs today show WBC 7.0, hgb 9.1, D-dimer 0.86, sodium 142, potassium 3.6, BUN 33, creatinine 1.28, glucose in the 130s, calcium 7.8, CRP 1.7, total protein 4.6, albumin 2.0. Multiple consultations. Prognosis remains guarded. 05/25/2021 Throughout the evening patient desaturated and his blood pressure was dropping while on the levophed and his heart rate was increasing and then once he was off the levophed his heart rate was increasing and his blood pressure was dropping. Patient was reintubated with an Fi02 of 60%. Blood gases at the time showed a pCO2 of greater than 120, pH 6.97, pO2 170, total oxygen saturation 98. Oxygen saturations 98%, he is afebrile, pulse rate 43 appears sinus bradycardia on EKG that was obtained midmorning. Blood pressure 135/75. Blood gases have improved with a pH now 7.30, pCO2 57, pO2 57, HCO3 28, total CO2 30 and O2 saturation 87.5. Sodium 140, potassium 3.7, chloride 109, CO2 28, BUN 27, creatinine 1.36, blood glucose 120, calcium 8.1, AST 27, ALT 19, LDH 585, CRP 1.9. Chest x-ray today shows as based consolidation atelectasis and volume loss in the right hemithorax which is slightly compared to exam yesterday. Has pulmonary interstitial edema on the left side without change. Plan is for a PEG, trach tomorrow. Cardiology was consulted and started patient on a dopamine infusion. Patient is on D5 water at 75 mL per hour, levophed infusing, propofol, on IV Zosyn and IV valproic acid. Labs initial white count 13, hemoglobin 10.7, d- dimer 1.84. 05/26/2021 Patient is seen today in follow up in the ICU being closely monitored. Multiple medical consultations following along with general surgery and is scheduled for peg and trach placement today. Tube feedings on hold. Patient continues on mechanical vent and FI02 is 50% peep is 5. Chest xray today shows COPD right greater than left with covid infiltrates and aeration improving now on the right. Potassium is 3.2 and being replaced. Lovenox on hold for the procedure as well. 05/27/2021 Patient is seen in follow-up in the ICU with multiple medical consultations following. Patient is status post PEG and trach placement and will be initiating tube feeds once cleared by surgery. Sputum culture finalized showing E. coli with ESBL and resistance and infectious disease is following. Patient was continued on dopamine along with Levophed and attempting to wean per nursing staff. Patient also continues in D5 water with nephrology following closely. Patient is on IV Zosyn along with nystatin and will continue. Chest x-ray today shows stable portable chest with no evidence of pneumothorax and no change in bibasilar opacities. Patient continues on propofol and FiO2 is 50% with a PEEP of 5. Potassium found a 3.2 and replaced and will repeat labs. 05/28/2021 Patient is seen in follow-up this morning continues to be in the ICU with multiple medical consultations following. Patient is currently continued on mechanical vent via tracheostomy and FiO2 is 40% with a PEEP of 5. Patient is status post peg and trach and surgery following. Patient resumed on lovenox and tube feedings. Tolerating tube feedings thus far. Patient continues on levophed and off dopamine. Patient was on Midodrine and will resume along with his olanzapine and continue to monitor closely. Patient is maintained on Meropenem and ID following closely. Patient also continues on solu-cortef and d5 in water with nephrology following as well. 05/29/2021 Patient is seen and evaluated in follow-up today continues to be in the ICU under close observation with multiple medical consultations following. Patient continues on mechanical ventilation via tracheostomy and FiO2 is 40% and PEEP is 5. Chest xray today shows COPD with continued peripheral and basilar covid infiltrates, similar to slightly worsened from yesterday. Patient continues with sedation holidays to assess mentation although continues to not follow commands appropriately. Patient continues on Levophed as well. IV merrem to continue. 05/30/2021 Patient is seen this morning in the ICU with multiple medical consultations following. Patient continues on vent with an FI02 of 40% and peep is 5. Chest x-ray today shows a curvilinear edge that is now seen at the bilateral apices that could be projectional artifact and recommended follow-up with improved positioning to exclude trace of new biapical pneumothoraces, COPD, increase in small to moderate bilateral pleural effusions with continued patchy mid and low er lung Covid infiltrates. Patient continues on sedation and event staff working on weaning. Patient will open eyes although not follow any commands. Continues on low dose levophed 05/31/2021 Patient is in the MICU. Admitted to hospital due to acute COVID-19 pneumonia. Currently on mechanical ventilator via tracheostomy tube. Assist-control with respiratory rate 30, tidal volume 350, FiO2 50% and PEEP of 5. Remains on propofol and Nimbex. Currently on D5 water at 75 cc/h. Patient is off pressor support. Patient is being continued on antibiotics in the form of meropenem. Sputum cultures growing Romelia and most recently E. coli. ID is on board. Chest x- ray showed bilateral lung infiltrates with suggestion of mild improvement in the left midlung zone. Laboratory data showed WBC 10.6 hemoglobin 9.3 and platelets 579 Sodium 139 potassium 4.0 chloride 101 bicarb is 28 BUN 23 and creatinine 1.46 albumin 2.0 Patient is on hydrocortisone her milligrams IV every 6 hourly and also on mido drine. 06/01/2021 Patient is in MICU. Remains on ventilator via tracheostomy tube. FiO2 40% PEEP of 5. Not requiring any pressor support. Patient is being tried on IV hydrocortisone and midodrine. Currently on tube feedings. Chest x-ray showed bilateral opacities in the some interstitial infiltrates in the midlung zones. Upper lungs remain well aerated. No significant change. No pneumothorax. Patient sputum cultures showed E. coli. Repeat cultures have been negative patient remains on antibiotics in the form of meropenem. ID and pulmonary is on board. Laboratory data showed WC 5.6 hemoglobin 9.3 and platelets 462 sodium 137 potassium 4.0 chloride 110 bicarb is 28 BUN 27 creatinine 1.42 and blood sugar 146 ID nephrology and pulmonary is on board. 06/02/2021 Patient continues to be closely monitored in the ICU with multiple medical consultations following. Patient continues on ventilation support via tracheostomy and FiO2 is 35% and PEEP of 5. Patient attempting weaning trials of sedation and not tolerating well her nursing staff. Chest xray today shows chronic emphsyematous and pulmonary fibrotic changes with persistent small bilateral pleural effusions and lower lung infiltrates and or atelectasis all redemonstrated. Patient had been on IV fluids and will discontinue. Patient will be started on IV lasix daily. Patient tolerating tube feeds and no new episodes of hypoglycemia. Creatinine is 1.33 and will repeat labs and monitor closely. Continued attempts at weaning and slowly weaning off levophed. Review of systems: Unable to obtain as patient is mechanically intubated and sedated Labs: WBC is 6.8, hemoglobin is 9.9, platelets are 584, sodium is 138, potassium is 3.9, BUN is 30, creatinine is 1.33, calcium is 8.3 Active Medications Acetaminophen (Acetaminophen Tab 325 Mg Tab) 650 mg PO Q6HR PRN PRN Reason: Mild Pain or Fever > 100.5 Last Admin: 05/18/21 23:16 Dose: 650 mg Documented by: Albuterol Sulfate (Albuterol Hfa Inhaler) 2 puff INHALATION RT-QID [facility] Last Admin: 06/02/21 11:16 Dose: 2 puff Documented by: Atorvastatin Calcium (Atorvastatin 20 Mg Tab) 20 mg PO HS [facility] Last Admin: 06/01/21 20:00 Dose: 20 mg Documented by: Enoxaparin Sodium (Enoxaparin 40 Mg/0.4 Ml Syringe) 40 mg SQ DAILY [facility] Last Admin: 06/02/21 09:36 Dose: 40 mg Documented by: Ferrous Sulfate (Ferrous Sulfate 325 Mg Tab) 325 mg PO DAILY [facility] Last Admin: 06/02/21 09:36 Dose: 325 mg Documented by: Folic Acid (Folic Acid 1 Mg Tab) 1 mg PO DAILY [facility] Last Admin: 06/02/21 09:36 Dose: 1 mg Documented by: Furosemide (Furosemide 10 Mg/Ml 4 Ml Vial) 40 mg IV Q12HR [facility] Last Admin: 06/02/21 09:36 Dose: 40 mg Documented by: Hydrocortisone Sodium Succinate (Hydrocortisone Succinate 100 Mg/2 Ml Vial) 100 mg IV Q6HR [facility] Last Admin: 06/02/21 12:27 Dose: 100 mg Documented by: Hydromorphone HCl (Hydromorphone 1 Mg/Ml 1 Ml Syringe) 1 mg IVP Q2HR PRN PRN Reason: Pain Last Admin: 06/02/21 10:45 Dose: 1 mg Documented by: Norepinephrine Bitartrate 4 mg (/ Sodium Chloride) 254 mls @ 13.697 mls/hr IV .[id number] [facility]; Protocol Last Titration: 06/02/21 12:45 Dose: 0.005 mcg/kg/min, 1.37 mls/hr Documented by: Propofol 1,000 mg/ IV Solution 100 mls @ 0 mls/hr IV .Q0M [facility]; Protocol Last Titration: 06/02/21 10:25 Dose: 0 mcg/kg/min, 0 mls/hr Documented by: Meropenem 1 gm/ Sodium (Chloride) 100 mls @ 33.3 mls/hr IVPB Q8H [facility]; Protocol Last Admin: 06/02/21 06:57 Dose: 33.3 mls/hr Documented by: Dexmedetomidine HCl 400 mcg/ (IV Solution) 100 mls @ 4.45 mls/hr IV .[id number] [facility]; Protocol Last Admin: 06/02/21 12:27 Dose: 0.2 mcg/kg/hr, 4.45 mls/hr Documented by: Midodrine (Midodrine 5 Mg Tab) 10 mg PO AC-TID [facility] Last Admin: 06/02/21 12:28 Dose: 10 mg Documented by: Miscellaneous Information (Potassium Replacement Protocol 1 Each Misc) 1 each MISCELLANE DAILY PRN; Protocol PRN Reason: Per Protocol Nystatin (Nystatin 100,000 Unit/Ml Susp 500,000 Unit/5 Ml Cup) 500,000 unit PO QID [facility] Last Admin: 06/02/21 12:27 Dose: 500,000 unit Documented by: Olanzapine (Olanzapine Odt 5 Mg Tab) 5 mg PO DAILY [facility] Last Admin: 06/02/21 10:07 Dose: 5 mg Documented by: Olanzapine (Olanzapine Odt 10 Mg Tab) 20 mg PO HS [facility] Last Admin: 06/01/21 20:00 Dose: 20 mg Documented by: Pantoprazole Sodium (Pantoprazole 40 Mg/10 Ml Vial) 40 mg IVP DAILY [facility] Last Admin: 06/02/21 09:36 Dose: 40 mg Documented by: Physical Exam: Gen: this is a 70-year-old male currently sedated and intubated. 35% mechanical ventilation with a PEEP of 5 HEENT: Head is atraumatic, normocephalic. Pupils equal, round. Sclerae is anicteric. NECK: Supple. No JVD. No lymphadenopathy. No thyromegaly. LUNGS: Diminished breath sounds bilaterally with coarse rhonchi and crackles noted. No intercostal retractions. HEART: S1, S2 are muffled ABDOMEN: Soft. Bowel sounds are present. No masses. No tenderness. EXTREMITIES: No pedal edema. No calf tenderness. NEUROLOGICAL: Patient is currently intubated and sedated Assessment: Acute COVID-19 infection with acute COVID-19 bilateral interstitial pneumonia, right more than left with acute hypoxic respiratory failure, now requiring mechanical ventilation with extubation on 05/24/2021, and re-intubation on 05/25/2021 status post peg tube and tracheostomy placement Acute kidney injury secondary to acute tubular necrosis from septic shock Chronic kidney disease stage III secondary to nephrosclerosis Hypoglycemia, improved Change in mental status, metabolic encephalopathy, multifactorial Falling, gait dysfunction Anemia, normocytic anemia of undetermined significance Hypernatremia from poor oral intake Hyperkalemia secondary to acute kidney injury, resolved Elevated d-dimer history of coronary artery disease history of chronic obstructive pulmonary disease Gastroesophageal reflux disease history of bipolar, schizoaffective disorder and schizophrenia History of nicotine dependence Severe protein calorie malnutrition with a BMI of 19.1 No code Plan: Recommend to continue with current medications and follow along closely with multiple medical consultations. Prognosis remains extremely guarded with multiple complex medical issues noted. Patient is status post peg and trach placement and continues on mechanical vent. Continued attempts of sedation holiday to assess mentation and weaning. Currently off diprivan at the moment. Not tolerating extremely well. Has Dilaudid as well. tube feedings being tolerated. Recommend continue with current medications and patient has been maintained on IV antibiotics with infectious disease following.. Patient will continue on merrem . Chest x-ray reviewed as mentioned above. Recommend repeat labs in the morning along with chest xray. IV fluids discontinued and giving IV lasix. Nephrology following as well. Again due to multiple complex medical issues prognosis is quite guarded. Objective - Vital Signs Vital signs: Vital Signs Temp 98.1 F 06/02/21 04:00 Pulse 63 06/02/21 07:00 Resp 22 06/02/21 07:00 BP 112/62 06/02/21 07:00 Pulse Ox 95 06/02/21 07:00 Intake & Output 06/01/21 06/02/21 06/02/21 18:59 06:59 18:59 Intake Total 2034.936 1596.617 331.106 Output Total 1350 1360 100 Balance 684.936 236.617 231.106 Weight 89 kg Intake: IV 1376 1018 195 0.9 NaCl- 240 240 20 Dextrose 5% in Water 1, 900 675 75 000 ml @ 75 mls/hr IV . [id number] [facility] Rx#:[id number] Meropenem 200 100 100 pressure bag 36 3 Intake, IV Titration 214.936 224.617 114.106 Amount Norepinephrine 4 mg In 15.614 47.249 14.106 Sodium Chloride 0.9% 250 ml @ 0.05 MCG/KG/MIN 13. 697 mls/hr IV .[id number] [facility] Rx#:[id number] propofoL 1,000 mg In 199.322 177.368 100 Empty Bag 1 bag @ Titrate IV .Q0M [facility] Rx#: [id number] Tube Feeding 264 264 22 Other 180 90 Output: Urine 1350 1360 100 Other: Voiding Method Indwelling Catheter Indwelling Catheter ABP, PAP, CO, CI - Last Documented Arterial Blood Pressure 115/58 - Labs CBC & Chem 7: 06/02/21 04:04 06/02/21 04:04 Labs: Abnormal Lab Results - Last 24 Hours (Table) 06/01/21 06/01/21 06/01/21 Range/Units 11:22 17:43 23:12 RBC (4.30-5.90) m/uL Hgb (13.0-17.5) gm/dL Hct (39.0-53.0) % Plt Count (150-450) k/uL Lymphocytes # (1.0-4.8) k/uL ABG HCO3 (21-25) mmol/L ABG Total CO2 (19-24) mmol/L ABG O2 Saturation (94-97) % Chloride (98-107) mmol/L BUN (9-20) mg/dL Creatinine (0.66-1.25) mg/dL Glucose (74-99) mg/dL POC Glucose (mg/dL) 137 H 111 H 151 H (75-99) mg/dL Calcium (8.4-10.2) mg/dL 06/02/21 06/02/21 06/02/21 Range/Units 04:04 04:04 05:21 RBC 3.18 L (4.30-5.90) m/uL Hgb 9.9 L (13.0-17.5) gm/dL Hct 30.6 L (39.0-53.0) % Plt Count 584 H (150-450) k/uL Lymphocytes # 0.3 L (1.0-4.8) k/uL ABG HCO3 29 H (21-25) mmol/L ABG Total CO2 30 H (19-24) mmol/L ABG O2 Saturation 98.4 H (94-97) % Chloride 110 H (98-107) mmol/L BUN 30 H (9-20) mg/dL Creatinine 1.33 H (0.66-1.25) mg/dL Glucose 129 H (74-99) mg/dL POC Glucose (mg/dL) (75-99) mg/dL Calcium 8.3 L (8.4-10.2) mg/dL 06/02/21 Range/Units 05:24 RBC (4.30-5.90) m/uL Hgb (13.0-17.5) gm/dL Hct (39.0-53.0) % Plt Count (150-450) k/uL Lymphocytes # (1.0-4.8) k/uL ABG HCO3 (21-25) mmol/L ABG Total CO2 (19-24) mmol/L ABG O2 Saturation (94-97) % Chloride (98-107) mmol/L BUN (9-20) mg/dL Creatinine (0.66-1.25) mg/dL Glucose (74-99) mg/dL POC Glucose (mg/dL) 120 H (75-99) mg/dL Calcium (8.4-10.2) mg/dL Microbiology - Last 24 Hours (Table) 05/28/21 10:28 Blood Culture - Preliminary Blood No Growth after 96 hours
[2021-06-03 04:38] LABS: HCT 33.7 % (39.0-53.0); HGB 10.9 gm/dL (13.0-17.5); MCH 31.4 pg (25.0-35.0); MCHC 32.2 g/dL (31.0-37.0); MCV 97.4 fL (80.0-100.0); Platelet Count 582 k/uL (150-450); RBC 3.46 m/uL (4.30-5.90); RDW 15.1 % (11.5-15.5); WBC 11.8 k/uL (3.8-10.6)
[2021-06-03 04:50] LABS: Calcium 8.4 mg/dL (8.4-10.2); Potassium 3.4 mmol/L (3.5-5.1)
[2021-06-03] MEDS ORDERED: DEXTROSE 5% IN WATER 100 ML with AMIODARONE 150 MG IV ONE (05:00)
[2021-06-03] MEDS ORDERED: AMIODARONE IN DEXTROSE,ISO-OSM 360 MG/200 ML PLAST..BAG IV ONE (05:04)
[2021-06-03] MEDS ORDERED: AMIODARONE IN DEXTROSE,ISO-OSM 150 MG/100 ML PLAST..BAG IV ONE (05:04)
[2021-06-03] MEDS ORDERED: AMIODARONE 360 MG in DEXTROSE 5% IN WATER 200 ML IV ONE ×2 (05:20)
[2021-06-03] MEDS: MIDODRINE 5 MG TAB PO SCH ×3 (05:21→17:50)
[2021-06-03] MEDS: MEROPENEM 1 GM in SODIUM CHLORIDE 0.9% 100 ML IVPB SCH ×5 (05:21→23:41)
[2021-06-03] MEDS: POTASSIUM BICARBONATE/CIT AC 20 MEQ TABLET.EFF NG-TUBE SCH ×2 (05:21→06:15)
[2021-06-03 05:49] LABS: Allen Test Performed? Yes
[2021-06-03 05:57] LABS: Glucose,Whole Blood 141 mg/dL (75-99)
[2021-06-03 06:16] LABS: ABG Base Excess 5.5 mmol/L; ABG HCO3 33 mmol/L (21-25); ABG Oxygen Saturation 98.5 % (94-97); ABG PH 7.25 (7.35-7.45); ABG PO2 128 mmHg (83-108); ABG TCO2 35 mmol/L (19-24)
[2021-06-03 06:23] LABS: ABG PCO2 74 mmHg (35-45)
[2021-06-03] MEDS: ALBUTEROL HFA INHALER INHALATION SCH ×4 (07:38→20:42)
[2021-06-03] MEDS: NOREPINEPHRINE 4 MG in SODIUM CHLORIDE 0.9% 250 ML IV SCH (07:56)
--- NOTE | 2021-06-03 08:46 | P.PN ---
Subjective Progress Note Date: 06/03/21 Principal diagnosis: Acute COVID-19 pneumonia This is a 70-year-old male patient, brought into the emergency department by a caregiver. The patient is unable to volunteer any history. He has issues with dementia and mental health. In fact he is unable to communicate. He is currently in the hospital for COVID pneumonia. The patient initially went to [place] where he was seen in the [facility] for COVID 19 infection. He was discharged home. This is approximately 4 days ago. Following that, the caregiver sent the patient to our hospital as the patient's condition was getting worse and apparently continued to have worsening mentation. The patient was unable to communicate time of his admission. He was mumbling and unable to make full sentences or other words. He was restless in bed. At times agitated. At times screaming. He was quite uncooperative during the evaluation. No history of any head trauma. The patient apparently had a fall and he sustained a trauma to his neck area following the fall. This occurred at home in a bathtub. In the emergency department, the patient was found to be hypoxic with a pulse ox of 80% and the patient required oxygen. The patient is currently on oxygen at 10 L high flow. Initial CAT scan of the brain and the CAT scan of the C-spine showed no acute process. The patient was given 10 mg of Decadron in the emergency department regarding his COVID 19 pneumonia. Chest x-ray showed bilateral lower lobe airspace disease. Note that the pulmonary infiltrates were worse on the right compared to the leftand the infiltrate was rather asymmetric, which obviously raises concerns for an underlying pneumonia, aspiration and the patient was given a dose of Rocephin and Zithromax in the emergency department. His white cell count is at 6.4 with a hemoglobin of 12 and a platelet count of 130. Sodium was 155 this morning with a potassium level of 6.1, BUN is at 50 with a creatinine of 1.5, LFTs are normal, lactic acid level was at 1.9, pro calcitonin level is at 0.16, d-dimer is at 0.8 and the rest of the coagulation profile is within normal limits. The patient is currently on IV Decadron. On 05/19/2021 patient seen in follow-up in the intensive care unit, overnight his condition continued to deteriorate, and early this morning at 4:00 on 05/19/2021 patient had rapid response team called to the bedside for concern of worsening shortness of breath, and worsening hypoxia, patient was confused and in respiratory distress, he is not answering any questions, on 10 L of oxygen his pulse ox was 94%, however his mental status was significantly altered, patient was transferred to the intensive care unit for high likelihood of intubation, this morning she was intubated and placed on mechanical ventilator, with assist-control mode of ventilation with a rate of 30, tidal on was 300, FiO2 100% and PEEP of 5. Early in the morning his blood gases showed pO2 of 82, pCO2 of 80, and pH of 7.18, this was done and FiO2 of 70%. Post intubation blood gas showed a pO2 of 81, pCO2 of 63, and pH of 7.24, this was done and FiO2 of 50%. Patient was hypotensive following intubation, he was given 2 L of fluid boluses, and his maintenance IV fluid is D5W at 50 ML per hour which will be switched to normal saline, he is on norepinephrine at 0.14 mics per kilo per minute, Diprivan infusion at 50 mics per kilo per minute. He remains on prophylactic Lovenox 40 mg daily, and Decadron 6 mg daily. He remains on his home medications including Lipitor, Plavix, Depakote, iron supplementation, his antipsychotics, midodrine which patient have not been able to take related to his altered mental status. Patient was also suspected to be aspirating, and he was placed on Zosyn for empiric antibiotic coverage. Today's labs have been reviewed, his white blood cell count is 7.1, hemoglobin of 12.7, sodium is 153 and patient has been on D5W at a rate of 100 ML per hour, his oral intake has been extremely poor, potassium is 5.8, chloride is 124, BUN of 69, creatinine is 1.97. Patient's extremely cachectic, and frail. This morning patient had to be intubated and placed on mechanical ventilator, we will initiate tube feedings today, consult registered dietitian for tube feeding recommendation, patient will be fluid bolused, and stabilized hemodynamically. On 05/20/2021 patient seen in follow-up in intensive care unit. Yesterday he was intubated and placed on mechanical ventilator in view of worsening hypoxia and dyspnea. Today he remains sedated, and intubated on assist control mode of ventilation with a rate of 30, tidal volume is 325, FiO2 of 50% and PEEP of 10, this morning blood gases shows pO2 of 95, pCO2 of 70, and pH of 7.18. This was done on the above mentioned ventilator settings, today's chest x-ray shows some improvement of bibasilar infiltrates more so on the right, and possibility of developing small right pleural effusion. Patient is currently on a vasopressor support in the form of norepinephrine is 0.38 mics per kilo per minute which is about 24.7 mics per minute, he is on Diprivan at 50 mics per kilo per minute, and overnight he had episode of hypoglycemia and patient was placed on 10% dextrose at a rate of 100 ML per hour, patient was extremely dehydrated prior to his intubation, his had very poor oral intake. He was given 2 L fluid bolus yesterday, however still requiring vasopressor support, and case was discussed with nephrology who agreed that patient is still extremely intravascular volume depleted, and is recommending another 1 or 2 L fluid bolus today. Today's labs have been reviewed and his white blood cell count is 14.6, hemoglobin is 12.1, platelet count is 223, sodium is 148, potassium is 4.7, chloride is 121, CO2 is 23, BUN of 49 creatinine is 1.93, his LDH is 560, within normal limits, and CRP is 7.2, improving, his last proBNP from a couple days ago was 5790 however patient seems to be extremely dehydrated. His pro calcitonin levels were negative 2 at 0.16, and 0.12 however his chest x-ray findings suggest possibility of aspiration pneumonia, and patient was placed on Zosyn for possibility of aspiration. Sputum culture has been sent and pending, preliminary Gram stain showing few PMNs, rare budding yeast, final culture is pending, blood cultures are negative thus far. On 05/21/2021 patient seen in follow-up in intensive care unit, patient remains sedated, and intubated on assist control mode of ventilation with a rate of 36, tidal volume was 375, FiO2 of 40% and 5. The blood count shows pO2 of 71, pCO2 of 41, pH is 7.40, today's chest x-ray has been reviewed showing bilateral airspace disease with interstitial changes and prominent lung volumes indicative of underlying COPD. Vital signs have been stable overnight, patient is on norepinephrine 0.1 mics per kilo per minute, Diprivan is present, and D5W at 100 ML per hour, and plan an 70-20 ML per hour, he is on tube feedings with Nepro at 20 ML per hour and 10 of water flushes, he is in sinus mechanism with a rate of 82 BPM, patient has had fevers overnight with a temp of 100.5F. He is covered with Zosyn. His blood cultures have been negative, his sputum culture showed yeast species, culture is pending. Today's labs have been reviewed and his white blood cell count is 8.5, hemoglobin is 10.4, his sodium is improved and is down to 149, in follow-up sodium level came back at 151, patient remains on free water at 100 ML per hour, nephrology is following. Potassium is 4.0, chloride is 121, BUN is 40, creatinine is improved and is down to 1.58, his cortisol level 7, and this was on IV Decadron 6 mg daily, and patient remains on prophylactic dose Lovenox, Zosyn, yesterday he received an additional liter bolus in IV fluids. His urine output is in the order of 100-125 ML per hour. Overall his oxygenation and ventilation have significantly improved, and patient is maintaining stable O2 saturations on FiO2 of 40% and PEEP of 5, his peak Pressure is only 18, his plateau is 13. On 05/22/2021 patient seen in follow-up in intensive care unit, he remains intubated on mechanical ventilator, currently assist control mode of ventilation with a rate at 36, tidal 375, FiO2 40% and PEEP of 5, this was blood gas shows pO2 of 112, pCO2 40, pH of 7.40 and this was done and the above-mentioned vent settings, today's chest x-ray has been reviewed showing chronic emphysematous pulmonary fibrotic changes with moderate bilateral pleural effusions and susan ateral multifocal increased opacities consistent with COVID-19 infection. No significant change compared the day before. Patient's sedation has been placed on hold this morning. Patient is waking up, becoming slightly restless, however he is not following commands yet. He is on D5W at rate of 100 ML per hour, norepinephrine drip has been weaned off, patient continues on hydrocortisone 100 mg every 8 hours for his serum cortisol level of 7, his TSH level was 0.923, within normal limits. He's tolerating tube feedings he is receiving Nepro at 27 per hour with a goal of 27 standard water flushes, vital signs have been stable, no fever overnight. He did have a low-grade fever early this morning with a temp of 99.7F. His blood cultures have been negative, his sputum culture showed Romelia species. Patient remains on Zosyn for antibiotic coverage, on prophylactic Lovenox 40 mg daily. The rest of patient's labs have been reviewed, his white blood cell count is 6.0, hemoglobin of 9.6, sodium is improving and is down to 148, potassium is 4.0, chloride is 122, BUN is 26, creatinine is improving and is down to 1.55. On 05/23/2021 patient seen in follow-up in the intensive care unit. He remains intubated, on mechanical ventilator, currently on assist control mode of ventilation with a rate of 36, tidal volume 375, FiO2 of 40% and PEEP of 5. This morning's blood gas shows pO2 of 136, pCO2 of 40, and pH of 7.42, this was done and above-mentioned vent settings. Today's chest x-ray has been reviewed showing chronic emphysematous and pulmonary fibrotic changes with small bilate ral pleural effusions and bilateral multifocal opacities, without significant change compared to the prior study. Today's labs have been reviewed, white blood cell count is 5.5, hemoglobin is 8.9, sodium is 147, improving potassium is 3.5, chloride is 118, CO2 is 27, BUN 37, creatinine is 1.44. Patient is receiving D5W 1 50 ML per hour, nephrology is managing, he remains on hydrocortisone 100 mg every 8 hours, his been off vasopressor support for 48 hours. He has had no fever or chills. He remains on Zosyn. Sputum culture showed Romelia species, blood cultures have been negative. Neurologically patient has been off sedation for the past 24 hours. However patient is not following commands, although he is awake, at times he becomes restless, his been getting intermittent doses of when necessary on as-needed basis. We understand patient has underlying history of dementia however his baseline mental status is not known to us, his level of consciousness is certainly improved, however patient has not been able to follow any instructions. And for that reason patient has not been able to tolerate weaning trials, last night he had to be placed on assist-control mode of ventilation because he was extremely anxious, she did tolerate pressure support of 14 and IMV of 10 for a couple of hours, however became very agitated, and was placed back on assist control mode of ventilation. he is tolerating tube feedings. On 05/27/2021 patient seen in follow-up in the intensive care unit, patient remains intubated, and sedated on assist control mode of ventilation with a rate of 30, tidal 350, FiO2 of 50% and PEEP of 5, this morning's blood gas shows pO2 of 89, pCO2 45, pH is 7.3. Today's chest x-ray showing stable portable chest, bibasilar opacities, no significant change from prior exam, patient remains on Diprivan at 35 mics per kilo per minute, dopamine remains at 5 mics per kilo per minute, norepinephrine is at 1.5 mics per minute, D5W remains a 75 ML per hour, and tube feedings are currently on hold for recent trach and PEG placement by Dr. Mazariegos yesterday on 05/26/2021. He's had no acute events overnight. Today's labs have been reviewed, white blood cell count has increased and is currently 24.8, hemoglobin is 10.8, platelet count is 366, sodium is 140, potas sium is 3.2, chloride is 112, CO2 is 26, BUN is 18 creatinine is 1.14. Sputum culture from 2 days ago is showing gram-negative bacilli, final culture is still pending, patient currently remains on Zosyn, blood cultures are negative On 05/28/2021 patient seen in follow-up in intensive care unit, he remains trached to the ventilator, on assist control mode of ventilation with a rate of 30, tidal vital 350, FiO2 50% and PEEP of 5. He is sedated with Diprivan at 30 mics per kilo per minute, he is on 0.9 normal saline at a 20 ML per hour, D5W at 75 ML per hour, he is requiring small doses of norepinephrine and 5 mics per minute. Patient has been intermittently bradycardic with a heart rate in the low 40s, currently is in sinus mechanism with a rate of 60, his been experiencing intermittent hypotension, episodes of tachycardia. He is hypothermic this morning with a temp of 94.8F, he is on the warming blanket. Patient was found to have ESBL E. coli in his sputum culture, current antibiotic coverage is Avycaz, ID service is following. A new set of blood cultures will be sent, we'll send another cortisone level. Patient currently remains on hydrocortisone at 50 mg twice daily, however he may be experiencing worsening sepsis and septic shock. Today's labs have been reviewed, his white blood cell count is 16.1, hemoglobin is 9.7, d-dimer is 1.11, sodium is 140, potassium is 3.8, chloride is 111, CO2 is 26, BUN is 16 creatinine is 1.1 his LDH is 513, CRP is 15.8. His chest x-ray shows chronic emphysematous and pulmonary fibrotic changes with small right greater than left bilateral pleural effusions and bilateral mid to lower lung infiltrates. On 05/29/2021 patient seen in follow-up in intensive care unit, patient is trached to the ventilator, currently on assist control with a rate of 30, tidal vital 350, FiO2 40%, PEEP of 5, this. Blood gas shows pO2 of 94, pCO2 55, and pH of 7.31. Today's chest x-ray shows COPD with peripheral and basilar COVID infiltrates, similar to prior, slightly worsened. Patient has been afebrile overnight, no hyperthermia, he is hypotensive, requiring levo fed at 10 mics per minute. Yesterday we switched his antibiotic coverage from Avycaz to Meropenem in view of ESBL E. coli in his sputum. 2 more blood cultures have been sent, p ending at this time. Cortisol level yesterday was 18, hydrocortisone level was increased to 50 mg 3 times a day. Urine output is any order of 30-60 ML per hour. Today's labs have been reviewed, blood blood cell count is improving down to 15.6, hemoglobin is 10.2, sodium is 140, potassium is 4.3, chloride is 112, CO2 is 26, B1 is 16, creatinine is 1.23. LDH is 426 within normal limits, CRP is 12.5. On 06/02/2021 patient seen in follow-up in the intensive care unit. Patient is currently trached to the ventilator, he is on assist-control mode of ventilation with a rate of 30, tidal lungs 350, FiO2 of 40 percent, and PEEP of 5, this morning's blood gas shows pO2 of 98, pCO2 45, pH of 7.41. O2 saturation is 97% on those above-mentioned ventilator settings, peak pressures 41, plateau pres sure is 22. Today's chest x-ray showing chronic emphysematous and pulmonary fibrotic changes with persistent small bilateral pleural effusions and lower lung infiltrates and atelectasis. No significant change from the prior exam. Patient is currently on D5W at a rate of 75 ML per hour, he is requiring small dose of norepinephrine and propofol at 40 mics per kilo per minute. Patient was given a sedation holiday yesterday and per nursing reports patient was opening eyes spontaneously however not following any instructions. Patient was placed back on sedation at at bedtime. Today's blood work has been reviewed showing white blood cell count is 6.8, hemoglobin of 9.9, platelet count is 584, sodium is 138, potassium is 3.9, chloride is 110, B1 is 30 creatinine is 1.33. Patient's inflammatory markers from a few days ago show a normal LDH of 413, CRP of 5.5. Patient is currently being treated for ESBL E. coli pneumonia, and patient is covered with meropenem. Vital signs have been stable overnight, patient has been afebrile. Michelle catheter is in place, and urine output is in order of 100-150 ML per hour. Is tolerating tube feedings he is receiving Nepro 2.2 at 22 ML per hour with standard water flushes 30 mL every 4 hours. Patient has been on stress doses of hydrocortisone at 100 mg every 6 hours. He is also on midodrine 10 mg 3 times daily, he is on prophylactic dose Lovenox 40 mg once daily, and Protonix for GI prophylaxis, generally patient has diffuse edema in his trunk, upper and lower extremities, and overall he is in +27 kg net fluid balance since admission. Patient has had D5W infusion infusing at 75 ML per hour for hypernatremia and hypoglycemia since 05/21/2021. Patient is tolerating tube feedings there has been no recurrence of hypoglycemia and at this time D5W can be safely discontinued. On 06/03/2021 patient seen in follow-up in intensive care unit, yesterday he tolerated sedation holiday, he was placed on Precedex, he did not follow instruction however he was opening his eyes, he was comfortable without significant agitation and subsequently patient was placed on pressure-support with 12 and a CPAP of 5 and FiO2 of 40% and tolerated several hours of it. He was placed on small dose of Precedex to prevent him from stacking his breasts. In the evening he started becoming agitated, he was becoming hypoxic, he was difficult to ventilate, peak pressure alarm was alarming on the ventilator. The tracheostomy tube was adjusted, stat chest x-ray was obtained showing blunting of the costophrenic angles consistent with bilateral pleural effusions, mild pulmonary congestion, and tracheostomy tube which appear to be against the back wall of the trachea and this was thought to be the possible cause of the high peak pressure alarms. There was no evidence of pneumothorax on the chest x-ray. The tracheostomy tube was adjusted and subsequently patient was easier to ventilate, he was recently dated with the propofol and placed on Nimbex for the night. At the same time he went into A. fib with RVR, her own infusion at 1 mg/min after the initial bolus of 150 mg IV piggyback was administered, he currently remains in atrial fibrillation with a better controlled rate at 95 BPM. He is sedated paralyzed and trach to the ventilator on assist control mode of ventilation with a rate of 24, TV 300, FiO2 at 60% and PEEP of 5, this morning blood gas shows pO2 of 128, pCO2 of 74, pH 7.25. Subsequently FiO2 has been dropped down to 40% and patient is maintaining O2 saturations at around 100%, currently hemodynamically he still requiring a small dose of norepinephrine at 0.07 mics per kilo per minute, 0.9 normal saline area to 20 ML per hour and amiodarone drip at 1 mg/m as mentioned above. No other drips. She is tolerating tube feedings she is receiving Nepro at 31 with a goal of 31 and standard water flushes 30 mL every 4 hours. He was started on IV diuretics with Lasix 40 mg every 12 hours, and he has produced 5.9 L in the urine output last 24 hours and he is in -3.7 L net fluid balance over the last 24 hours. This morning's labs show white blood cell count of 11.8, hemoglobin of 10.9, sodium is 139, potassium is 3.4, chloride is 104, CO2 is 31, BUN is 40 creatinine is 1.42. Overall generally she looks less swollen with less tightness in his abdominal wall, and improved bilateral upper and lower extremity edema. Objective - Vital Signs Vital signs: Vital Signs Temp 96.8 F L 06/03/21 04:00 Pulse 124 H 06/03/21 07:15 Resp 24 06/03/21 07:15 BP 107/62 06/03/21 07:15 Pulse Ox 100 06/03/21 07:15 Intake & Output 06/02/21 06/03/21 06/03/21 18:59 06:59 18:59 Intake Total 4734.245 0293.547 176.622 Output Total 3730 2170 Balance -2631.715 -1077.453 176.622 Weight 89 kg 86 kg Intake: IV 543 299 0.9 NaCl- 240 260 Dextrose 5% in Water 1, 170 000 ml @ 75 mls/hr IV . [id number] [facility]ZQUEZ Rx#:[id number] Meropenem 100 pressure bag 33 39 Intake, IV Titration 207.285 300.547 176.622 Amount Cisatracurium 200 mg In 6.853 109.826 Sodium Chloride 0.9% 180 ml @ 1 MCG/KG/MIN 5.34 mls/hr IV .Q24H [facility]ZQUEZ Rx#: [id number] Dexmedetomidine/0.9% NaCl 40.383 30.557 (Pmx) 400 mcg In Empty Bag 1 bag @ 0.2 MCG/KG/HR 4.45 mls/hr IV .[id number] [facility] Rx#:[id number] Norepinephrine 4 mg In 25.728 119.939 66.796 Sodium Chloride 0.9% 250 ml @ 0.05 MCG/KG/MIN 13. 697 mls/hr IV .[id number] [facility] Rx#:[id number] propofoL 1,000 mg In 141.174 143.198 Empty Bag 1 bag @ Titrate IV .Q0M [facility] Rx#: [id number] Tube Feeding 318 403 Other 30 90 Output: Urine 3730 2170 Other: Voiding Method Indwelling Catheter Indwelling Catheter ABP, PAP, CO, CI - Last Documented Arterial Blood Pressure 109/64 - Exam GENERAL EXAM: Extremely frail and cachectic 70-year-old white male, trached to the ventilator on assist control mode of ventilation with a rate of 30, tidal on his 350, FiO2 40% and PEEP of 5, comfortable in no apparent distress. HEAD: Normocephalic/atraumatic. EYES: Normal reaction of pupils, equal size. Conjunctiva pink, sclera white. NOSE: Clear with pink turbinates. THROAT: No erythema or exudates. NECK: No masses, no JVD, no thyroid enlargement, no adenopathy. Midline tracheostomy in place, clean dry and intact, and patient is connected to the ventilator with assist control mode of ventilation CHEST: No chest wall deformity. Symmetrical expansion. LUNGS: Equal air entry with diminished breath sounds and crackles CVS: Regular rate and rhythm, normal S1 and S2, no gallops, no murmurs, no rubs ABDOMEN: Soft, nontender. No hepatosplenomegaly, normal bowel sounds, no guarding or rigidity. PEG tube is in place EXTREMITIES: No clubbing, with severe generalized swelling noted in upper and lower extremities no cyanosis, and truncal edema, 2+ pulses and upper and lower extremities. MUSCULOSKELETAL: Muscle strength and tone normal. SPINE: No scoliosis or deformity SKIN: No rashes. His and has various areas of decubitus ulcers, stage II with his ulcers on buttocks, bilateral hips, left elbow, and deep tissue injury on his bilateral heels CENTRAL NERVOUS SYSTEM: Sedated, intubated No focal deficits, tone is normal in all 4 extremities. - Labs CBC & Chem 7: 06/03/21 04:05 06/03/21 04:05 Labs: Abnormal Lab Results - Last 24 Hours (Table) 06/02/21 06/02/21 06/02/21 Range/Units 11:40 17:26 23:55 WBC (3.8-10.6) k/uL RBC (4.30-5.90) m/uL Hgb (13.0-17.5) gm/dL Hct (39.0-53.0) % Plt Count (150-450) k/uL ABG pH (7.35-7.45) ABG pCO2 (35-45) mmHg ABG pO2 (83-108) mmHg ABG HCO3 (21-25) mmol/L ABG Total CO2 (19-24) mmol/L ABG O2 Saturation (94-97) % Potassium (3.5-5.1) mmol/L Carbon Dioxide (22-30) mmol/L BUN (9-20) mg/dL Creatinine (0.66-1.25) mg/dL Glucose (74-99) mg/dL POC Glucose (mg/dL) 104 H 110 H 114 H (75-99) mg/dL 06/03/21 06/03/21 06/03/21 Range/Units 04:05 04:05 05:55 WBC 11.8 H (3.8-10.6) k/uL RBC 3.46 L (4.30-5.90) m/uL Hgb 10.9 L (13.0-17.5) gm/dL Hct 33.7 L (39.0-53.0) % Plt Count 582 H (150-450) k/uL ABG pH (7.35-7.45) ABG pCO2 (35-45) mmHg ABG pO2 (83-108) mmHg ABG HCO3 (21-25) mmol/L ABG Total CO2 (19-24) mmol/L ABG O2 Saturation (94-97) % Potassium 3.4 L (3.5-5.1) mmol/L Carbon Dioxide 31 H (22-30) mmol/L BUN 40 H (9-20) mg/dL Creatinine 1.42 H (0.66-1.25) mg/dL Glucose 134 H (74-99) mg/dL POC Glucose (mg/dL) 141 H (75-99) mg/dL 06/03/21 Range/Units 06:12 WBC (3.8-10.6) k/uL RBC (4.30-5.90) m/uL Hgb (13.0-17.5) gm/dL Hct (39.0-53.0) % Plt Count (150-450) k/uL ABG pH 7.25 L (7.35-7.45) ABG pCO2 74 H* (35-45) mmHg ABG pO2 128 H (83-108) mmHg ABG HCO3 33 H (21-25) mmol/L ABG Total CO2 35 H (19-24) mmol/L ABG O2 Saturation 98.5 H (94-97) % Potassium (3.5-5.1) mmol/L Carbon Dioxide (22-30) mmol/L BUN (9-20) mg/dL Creatinine (0.66-1.25) mg/dL Glucose (74-99) mg/dL POC Glucose (mg/dL) (75-99) mg/dL Microbiology - Last 24 Hours (Table) 05/28/21 10:28 Blood Culture - Preliminary Blood No Growth after 120 hours Assessment and Plan Plan: Assessment: #1. Acute hypoxic respiratory failure related to acute COVID-19 pneumonia, and possibility of bacterial infection/aspiration related pneumonia is not entirely excluded, sputum culture showed ESBL E. coli, and patient will be covered with meropenem. ID service is on the case. Patient was brought into the emergency department on 05/17/2021 per EMS, patient is a poor historian, reportedly has history of bipolar disease and dementia. Came in primarily for evaluation of altered mental status. Transferred from [place] emergency department for COVID-19 related pneumonia. The patient was taken to the hospital in [place] 4 days prior to this admission and the symptom onset was probably even prior to that. Exact onset of symptoms is not known. Patient was transferred to the intensive care unit on 05/19/2021 for worsening hypoxia, and hypercapnia, and altered mental status, and was intubated on 05/19/2021 on assist control mode of ventilation with a rate of 30, tidal on his 350, FiO2 40% and PEEP of 5. Patient had tolerated pressure support trials, and was extubated on 05/24/2021 however failed and was reintubated on 05/25/2021. #2. Hypotension, related to dehydration, and possibility of septic shock. Patient remains on norepinephrine for vasopressor support, serum cortisol level was only 7, patient remains on stress doses of hydrocortisone of 100 mg every 6 hours #2. Altered mental status with worsened from baseline #3. History of dementia and schizoaffective disorder #4. Acute dehydration and hypernatremia, on the D5W at 100 ML per hour, resolved #5. Chronic stage 3 kidney disease #6. COPD #7. History of coronary artery disease #8. GERD/reflux #9. Hyperlipidemia #10. Acute kidney injury related to ATN, and dehydration, improved and slightly worsened #11. Hyperkalemia related to [place], resolved #12. Hypoglcemia, was placed on D10 at 100 ml, will start tube feeds today. Blood sugars improved #13. Multiple areas of decubitus ulcer including deep tissue injury on bilateral heels, stage II on buttocks, stage II on bilateral hips and stage I on left elbow, present on admission Plan: Today's blood gases, labs, CXR and labs reviewed Decrease the FiO2 down to 40% Stop Nimbex and Propofol Allow the patient to wake up and attempt another PSV trial Cut back Lasix to 40 mg once daily Continue with antibiotics of ID service recommendation, patient remains on meropenem for ESBL E. coli pneumonia Wean vasopressor support Start oral Amiodarone 200 mg BID this evening, DC Amiodarone drip at 24 benjamin Continue with hydrocortisone 100 mg every 6 hours Continue supportive treatment, Will consider starting Eliquis for anticoagulation Continue to closely follow his progress in the intensive care unit I performed a history & physical examination of the patient and discussed their management with my nurse practitioner, Veronica Chiu. I reviewed the nurse practitioner's note and agree with the documented findings and plan of care. Lung sounds are positive for diminished breath sounds throughout the lung watson. The findings and the impression was discussed with the patient. I attest to the documentation by the nurse practitioner. Time with Patient: Greater than 30
[2021-06-03] MEDS: FERROUS SULFATE 325 MG TAB PO SCH (09:56)
[2021-06-03] MEDS: APIXABAN 5 MG TAB PO SCH ×2 (09:56→20:25)
[2021-06-03] MEDS: NYSTATIN 100,000 UNIT/ML SUSP 500,000 UNIT/5 ML CUP PO SCH ×4 (09:56→20:26)
[2021-06-03] MEDS: OLANZapine ODT 5 MG TAB PO SCH (09:56)
[2021-06-03] MEDS: FOLIC ACID 1 MG TAB PO SCH (09:56)
[2021-06-03] MEDS: FUROSEMIDE 10 MG/ML 4 ML VIAL IV SCH (09:57)
[2021-06-03] MEDS: PANTOPRAZOLE 40 MG/10 ML VIAL IVP SCH (09:57)
[2021-06-03] MEDS: DEXMEDETOMIDINE/0.9% NACL(PMX) 400 MCG in EMPTY BAG 1 BAG IV SCH (10:21)
[2021-06-03] MEDS: AMIODARONE 450 MG in DEXTROSE 5% IN WATER 250 ML IV SCH ×2 (11:02)
[2021-06-03 11:30] LABS: Glucose,Whole Blood 151 mg/dL (75-99)
--- NOTE | 2021-06-03 15:24 | P.PN ---
Subjective Progress Note Date: 06/03/21 CHIEF COMPLAINT: COVID-19 pneumonia HISTORY OF PRESENT ILLNESS: Patient is in the ICU intubated and sedated. Patient is status post PEG tube and tracheostomy placement on 05/26/21. Patient's tracheostomy was adjusted yesterday. Apparently patient's tracheostomy tube was up against the back wall of the trachea and may have been contributing to high peak pressure. Respiratory therapist adjusted the trach site. Patient's no longer having high peak pressures. And is maintaining oxygen saturation. Patient seen and examined with Dr. bill PHYSICAL EXAM: VITAL SIGNS: Reviewed. GENERAL: no acute distress. HEENT: Moist buccal mucosa. Head is atraumatic, normocephalic. Tracheostomy site clean dry and intact ABDOMEN: Soft. Nondistended. PEG tube site clean dry and intact NEUROLOGIC: Intubated and sedated ASSESSMENT: 1. Acute hypoxic respiratory failure secondary to COVID-19 pneumonia with mechanical ventilation and difficulty weaning from the vent status post tracheostomy placement 2. Severe protein calorie malnutrition status post PEG tube placement PLAN: -Continue tube feedings -Continue supportive care -Continue ICU management Physician Outreach Manager note has been reviewed by physician. Signing provider agrees with the documented findings, assessment, and plan of care. Objective - Vital Signs Vital signs: Vital Signs Temp 97.2 F L 06/03/21 12:00 Pulse 86 06/03/21 14:00 Resp 26 H 06/03/21 14:00 BP 103/64 06/03/21 14:00 Pulse Ox 100 06/03/21 14:00 Intake & Output 06/02/21 06/03/21 06/03/21 18:59 06:59 18:59 Intake Total 4068.467 4550.547 793.170 Output Total 3730 2170 1525 Balance -2631.715 -1077.453 -731.830 Weight 89 kg 86 kg Intake: IV 543 299 227.64 0.9 NaCl- 240 260 140 Amiodarone 450 mg In 66.64 Dextrose 5% in Water 250 ml @ 0.5 MG/MIN 16.667 mls/hr IV .Q15H [facility] Rx#: [id number] Dextrose 5% in Water 1, 170 000 ml @ 75 mls/hr IV . [id number] [facility] Rx#:[id number] Meropenem 100 pressure bag 33 39 21 Intake, IV Titration 207.285 300.547 319.530 Amount Cisatracurium 200 mg In 6.853 109.826 Sodium Chloride 0.9% 180 ml @ 1 MCG/KG/MIN 5.34 mls/hr IV .Q24H [facility] Rx#: [id number] Dexmedetomidine/0.9% NaCl 40.383 30.557 (Pmx) 400 mcg In Empty Bag 1 bag @ 0.2 MCG/KG/HR 4.45 mls/hr IV .[id number] [facility] Rx#:[id number] Norepinephrine 4 mg In 25.728 119.939 123.776 Sodium Chloride 0.9% 250 ml @ 0.05 MCG/KG/MIN 13. 697 mls/hr IV .[id number] [facility] Rx#:[id number] propofoL 1,000 mg In 141.174 143.198 85.928 Empty Bag 1 bag @ Titrate IV .Q0M [facility] Rx#: [id number] Tube Feeding 318 403 186 Other 30 90 60 Output: Urine 3730 2170 1525 Other: Voiding Method Indwelling Catheter Indwelling Catheter Indwelling Catheter ABP, PAP, CO, CI - Last Documented Arterial Blood Pressure 106/61 - Labs CBC & Chem 7: 06/03/21 04:05 06/03/21 04:05 Labs: Abnormal Lab Results - Last 24 Hours (Table) 06/02/21 06/02/21 06/03/21 Range/Units 17:26 23:55 04:05 WBC 11.8 H (3.8-10.6) k/uL RBC 3.46 L (4.30-5.90) m/uL Hgb 10.9 L (13.0-17.5) gm/dL Hct 33.7 L (39.0-53.0) % Plt Count 582 H (150-450) k/uL ABG pH (7.35-7.45) ABG pCO2 (35-45) mmHg ABG pO2 (83-108) mmHg ABG HCO3 (21-25) mmol/L ABG Total CO2 (19-24) mmol/L ABG O2 Saturation (94-97) % Potassium (3.5-5.1) mmol/L Carbon Dioxide (22-30) mmol/L BUN (9-20) mg/dL Creatinine (0.66-1.25) mg/dL Glucose (74-99) mg/dL POC Glucose (mg/dL) 110 H 114 H (75-99) mg/dL 06/03/21 06/03/21 06/03/21 Range/Units 04:05 05:55 06:12 WBC (3.8-10.6) k/uL RBC (4.30-5.90) m/uL Hgb (13.0-17.5) gm/dL Hct (39.0-53.0) % Plt Count (150-450) k/uL ABG pH 7.25 L (7.35-7.45) ABG pCO2 74 H* (35-45) mmHg ABG pO2 128 H (83-108) mmHg ABG HCO3 33 H (21-25) mmol/L ABG Total CO2 35 H (19-24) mmol/L ABG O2 Saturation 98.5 H (94-97) % Potassium 3.4 L (3.5-5.1) mmol/L Carbon Dioxide 31 H (22-30) mmol/L BUN 40 H (9-20) mg/dL Creatinine 1.42 H (0.66-1.25) mg/dL Glucose 134 H (74-99) mg/dL POC Glucose (mg/dL) 141 H (75-99) mg/dL 06/03/21 Range/Units 11:27 WBC (3.8-10.6) k/uL RBC (4.30-5.90) m/uL Hgb (13.0-17.5) gm/dL Hct (39.0-53.0) % Plt Count (150-450) k/uL ABG pH (7.35-7.45) ABG pCO2 (35-45) mmHg ABG pO2 (83-108) mmHg ABG HCO3 (21-25) mmol/L ABG Total CO2 (19-24) mmol/L ABG O2 Saturation (94-97) % Potassium (3.5-5.1) mmol/L Carbon Dioxide (22-30) mmol/L BUN (9-20) mg/dL Creatinine (0.66-1.25) mg/dL Glucose (74-99) mg/dL POC Glucose (mg/dL) 151 H (75-99) mg/dL Microbiology - Last 24 Hours (Table) 05/28/21 10:28 Blood Culture - Final Blood No Growth after 144 hours
[2021-06-03 17:45] LABS: Glucose,Whole Blood 97 mg/dL (75-99)
[2021-06-03] MEDS: HYDROmorphone 1 MG/ML 1 ML SYRINGE IVP PRN ×2 (17:50→23:42)
[2021-06-03] MEDS: POTASSIUM CHLORIDE ER 20 MEQ TAB.ER PO SCH ×2 (19:17→20:25)
[2021-06-03] MEDS: ATORVASTATIN 20 MG TAB PO SCH (20:25)
[2021-06-03] MEDS: AMIODARONE 200 MG TAB PO SCH (20:25)
[2021-06-03] MEDS: OLANZapine ODT 10 MG TAB PO SCH (20:25)
--- NOTE | 2021-06-03 21:50 | P.PN ---
Subjective Progress Note Date: 06/03/21 Principal diagnosis: COVID-19 pneumonia Interval history: Patient is a 70-year-old male presented to the hospital with acute respiratory failure in this but have a evidence of multifocal pneumonia secondary to COVID-19. Patient did have worsening of his respiratory status requiring intubation on 05/19/2021, patient has been extubated on 05/24/2021 however the patient did have worsening of his respiratory status and inability intubated night of 05/24/2021, patient is status post trach and PEG on 05/26/2021 On today's evaluation that is 06/03/2021, The patient remains to be afebrile, the patient is hemodynamically stable and patient is requiring less pressor supp ort, the patient FiO2 is stable at 40% no significant purulent secretions through the ET or diarrhea has been reported by the nursing staff, Objective - Vital Signs Vital signs: Vital Signs Temp 97.2 F L 06/03/21 12:00 Pulse 67 06/03/21 19:00 Resp 21 06/03/21 19:00 BP 115/62 06/03/21 19:00 Pulse Ox 99 06/03/21 19:00 Intake & Output 06/03/21 06/03/21 06/04/21 06:59 18:59 06:59 Intake Total 2984.916 7129.810 70.66 Output Total 2170 1875 45 Balance -1077.453 -769.190 25.66 Weight 86 kg Intake: IV 299 386.28 39.66 0.9 NaCl- 260 220 20 Amiodarone 450 mg In 133.28 16.66 Dextrose 5% in Water 250 ml @ 0.5 MG/MIN 16.667 mls/hr IV .Q15H [facility] Rx#: [id number] pressure bag 39 33 3 Intake, IV Titration 300.547 319.530 Amount Cisatracurium 200 mg In 6.853 109.826 Sodium Chloride 0.9% 180 ml @ 1 MCG/KG/MIN 5.34 mls/hr IV .Q24H [facility] Rx#: [id number] Dexmedetomidine/0.9% NaCl 30.557 (Pmx) 400 mcg In Empty Bag 1 bag @ 0.2 MCG/KG/HR 4.45 mls/hr IV .[id number] [facility] Rx#:[id number] Norepinephrine 4 mg In 119.939 123.776 Sodium Chloride 0.9% 250 ml @ 0.05 MCG/KG/MIN 13. 697 mls/hr IV .[id number] [facility] Rx#:[id number] propofoL 1,000 mg In 143.198 85.928 Empty Bag 1 bag @ Titrate IV .Q0M [facility] Rx#: [id number] Tube Feeding 403 310 31 Other 90 90 Output: Urine 2170 1875 45 Other: Voiding Method Indwelling Catheter Indwelling Catheter ABP, PAP, CO, CI - Last Documented Arterial Blood Pressure 132/67 - Exam General description is an elderly male intubated on the vent Respiratory system:Unlabored breathing, decreased intensity in breath sounds. Heart S1, S2. Regular rate and rhythm. Abdomen soft, no tenderness. Extremities: No edema feet - Labs CBC & Chem 7: 06/03/21 04:05 06/03/21 18:00 Labs: Abnormal Lab Results - Last 24 Hours (Table) 06/02/21 06/03/21 06/03/21 Range/Units 23:55 04:05 04:05 WBC 11.8 H (3.8-10.6) k/uL RBC 3.46 L (4.30-5.90) m/uL Hgb 10.9 L (13.0-17.5) gm/dL Hct 33.7 L (39.0-53.0) % Plt Count 582 H (150-450) k/uL ABG pH (7.35-7.45) ABG pCO2 (35-45) mmHg ABG pO2 (83-108) mmHg ABG HCO3 (21-25) mmol/L ABG Total CO2 (19-24) mmol/L ABG O2 Saturation (94-97) % Potassium 3.4 L (3.5-5.1) mmol/L Carbon Dioxide 31 H (22-30) mmol/L BUN 40 H (9-20) mg/dL Creatinine 1.42 H (0.66-1.25) mg/dL Glucose 134 H (74-99) mg/dL POC Glucose (mg/dL) 114 H (75-99) mg/dL 06/03/21 06/03/21 06/03/21 Range/Units 05:55 06:12 11:27 WBC (3.8-10.6) k/uL RBC (4.30-5.90) m/uL Hgb (13.0-17.5) gm/dL Hct (39.0-53.0) % Plt Count (150-450) k/uL ABG pH 7.25 L (7.35-7.45) ABG pCO2 74 H* (35-45) mmHg ABG pO2 128 H (83-108) mmHg ABG HCO3 33 H (21-25) mmol/L ABG Total CO2 35 H (19-24) mmol/L ABG O2 Saturation 98.5 H (94-97) % Potassium (3.5-5.1) mmol/L Carbon Dioxide (22-30) mmol/L BUN (9-20) mg/dL Creatinine (0.66-1.25) mg/dL Glucose (74-99) mg/dL POC Glucose (mg/dL) 141 H 151 H (75-99) mg/dL Microbiology - Last 24 Hours (Table) 05/28/21 10:28 Blood Culture - Final Blood No Growth after 144 hours Assessment and Plan (1) Aspiration pneumonia Current Visit: Yes Status: Acute Code(s): J69.0 - PNEUMONITIS DUE TO INHALATION OF FOOD AND VOMIT SNOMED Code(s): 563512591 (2) COVID-19 Current Visit: Yes Status: Acute Code(s): U07.1 - COVID-19 SNOMED Code(s): 957958192 Plan: 1-Patient with acute respiratory failure which is multifactorial in this patient with initial diagnosis of COVID-19 pneumonia in this patient did have significant worsening of his respiratory status requiring intubation and concern for possible aspiration pneumonitis, status post trach and peg, patient's sputum has been finalized with ESBL E. coli, patient to continue with meropenem 1 g every 8 hours and monitor clinical course closely. 2patient covid symptom has been going on for more than 3 weeks as per docu mentation from the ER and can be taken off droplet isolation Time with Patient: Less than 30
[2021-06-03 23:58] LABS: Glucose,Whole Blood 94 mg/dL (75-99)
[2021-06-04] MEDS: AMIODARONE 450 MG in DEXTROSE 5% IN WATER 250 ML IV SCH ×2 (00:20)
--- NOTE | 2021-06-04 01:51 | P.PN ---
Subjective Progress Note Date: 06/03/21 This is a 70-year-old male who was recently admitted with change in mental status and fall and also shortness of breath and acute COVID-19 pneumonia and being closely monitored. Patient was continued on high flow oxygen although respiratory status continued to deteriorate and an A team was called. Patient was brought to the ICU for close monitoring and x-ray showed some bilateral lower lobe pneumonia which appears unchanged compared to recent exam with no obvious heart failure. Patient was placed on mechanical vent and intubated and sedated and is being closely monitored. Multiple medical consultations including pulmonary and infectious disease following closely. 05/20/2021 Patient is seen in follow-up activity is to be closely monitored in the ICU. Blood pressure and heart rate has been extremely variable and patient is maintained on D10 in water along with norepinephrine and will continue. Pulmonary and infectious disease following closely. Patient continues with worsening kidney functions nephrology consulted and patient is being given a liter bolus for hypotension and repeat sodium level ordered. Patient also continues on Zosyn and ID following closely. Patient continues with low blood sugar readings as well and we'll continue D10 and close glucose monitoring. Chest x-ray shows some improvement in bibasilar infiltrates more so on the right and possibly developing small right pleural effusion. 05/21/2021 Patient is seen and evaluated this morning continues to be in the ICU with multiple medical consultations following. Patient is continued on IV antibiotics with ID following. Cultures continue to be negative and WBC is 8.5. Patient did have low grade temp today. Patient continues on mechanical vent and sedated. Chest xray similar to previous exam and will continue to monitor. Prognosis remains guarded. Patient also continued on norepinephrine. 05/22/2021 Patient is seen and evaluated today continues to be on mechanical vent with an FiO2 of 40% PEEP is 5. Patient continuing with weaning trials and assist mode on mechanical vent although patient continues to not follow commands per nursing staff. Per pulmonary rotary surface grinder continued attempts at weaning. Chest x-ray shows chronic emphysematous changes and pulmonary fibrosis with moderate bilater al pleural effusions and bilateral multifocal increased opacification consistent with COVID-19 infection are all redemonstrated with no significant change from yesterday. Sputum culture finalized showing Romelia species not albicans, glabrata along with Romelia albicans and infectious disease is following. Patient continues on IV antibiotics in the form of Zosyn. Patient is currently off norepinephrine and receiving Solu-Cortef along with valproic acid and Depakote. Patient is continued on Lovenox for DVT prophylaxis. Patient also continues on D5 in water at 100 mL per hour. Blood gases are improving and pulmonary discussing possible extubation. 05/23/2021 Patient is seen this morning continues to be on mechanical vent with an FiO2 of 40 and a PEEP of 5 with continued weaning trials. Patient is off sedation and does open eyes to verbal stimuli although does not follow commands. Chest x-ray today shows chronic emphysematous and pulmonary fibrotic changes with small size bilateral pleural effusions and bilateral multifocal increased opacification is consistent with COVID-19 infection are again redemonstrated with no significant change from previous. General surgery consulted for possible trach and peg tube placement. 05/24/2021 Patient with spontaneous eye opening during assessment, eyes are tracking, however when asked to squeeze fingers patient unable to do so and did not wiggle toes when asked. He was not responsive to commands or yes or no questions. Continues in the ICU on 5L NC with an oxygen saturation of 91%. He is afebrile, Heart rate is in the 40-50's dropping into the mid 30's. Unclear whether patient is in a heart block, nurse reports HR of 30's seems to be when he is sleeping. EKG will try to be obtained when he is in the 30's. Respirations are 23, blood pressure 135/55. Chest xray today remains unchanged. Possible trach and PEG tube wednesday if needed. Labs today show WBC 7.0, hgb 9.1, D-dimer 0.86, sodium 142, potassium 3.6, BUN 33, creatinine 1.28, glucose in the 130s, calcium 7.8, CRP 1.7, total protein 4.6, albumin 2.0. Multiple consultations. Prognosis remains guarded. 05/25/2021 Throughout the evening patient desaturated and his blood pressure was dropping while on the levophed and his heart rate was increasing and then once he was off the levophed his heart rate was increasing and his blood pressure was dropping. Patient was reintubated with an Fi02 of 60%. Blood gases at the time showed a pCO2 of greater than 120, pH 6.97, pO2 170, total oxygen saturation 98. Oxygen saturations 98%, he is afebrile, pulse rate 43 appears sinus bradycardia on EKG that was obtained midmorning. Blood pressure 135/75. Blood gases have improved with a pH now 7.30, pCO2 57, pO2 57, HCO3 28, total CO2 30 and O2 saturation 87.5. Sodium 140, potassium 3.7, chloride 109, CO2 28, BUN 27, creatinine 1.36, blood glucose 120, calcium 8.1, AST 27, ALT 19, LDH 585, CRP 1.9. Chest x-ray today shows as based consolidation atelectasis and volume loss in the right hemithorax which is slightly compared to exam yesterday. Has pulmonary interstitial edema on the left side without change. Plan is for a PEG, trach tomorrow. Cardiology was consulted and started patient on a dopamine infusion. Patient is on D5 water at 75 mL per hour, levophed infusing, propofol, on IV Zosyn and IV valproic acid. Labs initial white count 13, hemoglobin 10.7, d- dimer 1.84. 05/26/2021 Patient is seen today in follow up in the ICU being closely monitored. Multiple medical consultations following along with general surgery and is scheduled for peg and trach placement today. Tube feedings on hold. Patient continues on mechanical vent and FI02 is 50% peep is 5. Chest xray today shows COPD right greater than left with covid infiltrates and aeration improving now on the right. Potassium is 3.2 and being replaced. Lovenox on hold for the procedure as well. 05/27/2021 Patient is seen in follow-up in the ICU with multiple medical consultations following. Patient is status post PEG and trach placement and will be initiating tube feeds once cleared by surgery. Sputum culture finalized showing E. coli with ESBL and resistance and infectious disease is following. Patient was continued on dopamine along with Levophed and attempting to wean per nursing staff. Patient also continues in D5 water with nephrology following closely. Patient is on IV Zosyn along with nystatin and will continue. Chest x-ray today shows stable portable chest with no evidence of pneumothorax and no change in bibasilar opacities. Patient continues on propofol and FiO2 is 50% with a PEEP of 5. Potassium found a 3.2 and replaced and will repeat labs. 05/28/2021 Patient is seen in follow-up this morning continues to be in the ICU with multiple medical consultations following. Patient is currently continued on mechanical vent via tracheostomy and FiO2 is 40% with a PEEP of 5. Patient is status post peg and trach and surgery following. Patient resumed on lovenox and tube feedings. Tolerating tube feedings thus far. Patient continues on levophed and off dopamine. Patient was on Midodrine and will resume along with his olanzapine and continue to monitor closely. Patient is maintained on Meropenem and ID following closely. Patient also continues on solu-cortef and d5 in water with nephrology following as well. 05/29/2021 Patient is seen and evaluated in follow-up today continues to be in the ICU under close observation with multiple medical consultations following. Patient continues on mechanical ventilation via tracheostomy and FiO2 is 40% and PEEP is 5. Chest xray today shows COPD with continued peripheral and basilar covid infiltrates, similar to slightly worsened from yesterday. Patient continues with sedation holidays to assess mentation although continues to not follow commands appropriately. Patient continues on Levophed as well. IV merrem to continue. 05/30/2021 Patient is seen this morning in the ICU with multiple medical consultations following. Patient continues on vent with an FI02 of 40% and peep is 5. Chest x-ray today shows a curvilinear edge that is now seen at the bilateral apices that could be projectional artifact and recommended follow-up with improved positioning to exclude trace of new biapical pneumothoraces, COPD, increase in small to moderate bilateral pleural effusions with continued patchy mid and low er lung Covid infiltrates. Patient continues on sedation and staff weapons officer working on weaning. Patient will open eyes although not follow any commands. Continues on low dose levophed 05/31/2021 Patient is in the MICU. Admitted to hospital due to acute COVID-19 pneumonia. Currently on mechanical ventilator via tracheostomy tube. Assist-control with respiratory rate 30, tidal volume 350, FiO2 50% and PEEP of 5. Remains on propofol and Nimbex. Currently on D5 water at 75 cc/h. Patient is off pressor support. Patient is being continued on antibiotics in the form of meropenem. Sputum cultures growing Romelia and most recently E. coli. ID is on board. Chest x- ray showed bilateral lung infiltrates with suggestion of mild improvement in the left midlung zone. Laboratory data showed WBC 10.6 hemoglobin 9.3 and platelets 579 Sodium 139 potassium 4.0 chloride 101 bicarb is 28 BUN 23 and creatinine 1.46 albumin 2.0 Patient is on hydrocortisone her milligrams IV every 6 hourly and also on mido drine. 06/01/2021 Patient is in MICU. Remains on ventilator via tracheostomy tube. FiO2 40% PEEP of 5. Not requiring any pressor support. Patient is being tried on IV hydrocortisone and midodrine. Currently on tube feedings. Chest x-ray showed bilateral opacities in the some interstitial infiltrates in the midlung zones. Upper lungs remain well aerated. No significant change. No pneumothorax. Patient sputum cultures showed E. coli. Repeat cultures have been negative patient remains on antibiotics in the form of meropenem. ID and pulmonary is on board. Laboratory data showed WC 5.6 hemoglobin 9.3 and platelets 462 sodium 137 potassium 4.0 chloride 110 bicarb is 28 BUN 27 creatinine 1.42 and blood sugar 146 ID nephrology and pulmonary is on board. 06/02/2021 Patient continues to be closely monitored in the ICU with multiple medical consultations following. Patient continues on ventilation support via tracheostomy and FiO2 is 35% and PEEP of 5. Patient attempting weaning trials of sedation and not tolerating well her nursing staff. Chest xray today shows chronic emphsyematous and pulmonary fibrotic changes with persistent small bilateral pleural effusions and lower lung infiltrates and or atelectasis all redemonstrated. Patient had been on IV fluids and will discontinue. Patient will be started on IV lasix daily. Patient tolerating tube feeds and no new episodes of hypoglycemia. Creatinine is 1.33 and will repeat labs and monitor closely. Continued attempts at weaning and slowly weaning off levophed. 06/03/2021 Patient is seen and evaluated continues to be closely monitored in the ICU continued on ventilation support via tracheostomy and FiO2 was increased to 50% with a PEEP of 5. Per nursing staff patient not tolerating weaning off sedation and requiring propofol. Chest x-ray from last night shows pleural effusions with basilar pulmonary infiltrates and mild congestion with mild heart failure it is possible with no change compared to earlier exam from the morning. Patient continues on IV Lasix 40 mg daily. Patient also continues on Meropenem with infectious disease following closely. Patient apparently not tolerating last night and heart rate irregular and on IV amiodarone and cardiology is following. Patient with significant scrotal and penis swelling along with generalized edema of the extremities noted as well. Review of systems: Unable to obtain as patient is mechanically intubated and sedated Labs: WBC is 11.8, hemoglobin is 10.9, platelets are 582, sodium is 139, potassium 3.4, BUN 40, creatinine 1.42, calcium 8.4 Active Medications Acetaminophen (Acetaminophen Tab 325 Mg Tab) 650 mg PO Q6HR PRN PRN Reason: Mild Pain or Fever > 100.5 Last Admin: 05/18/21 23:16 Dose: 650 mg Documented by: Albuterol Sulfate (Albuterol Hfa Inhaler) 2 puff INHALATION RT-QID [facility] Last Admin: 06/03/21 11:53 Dose: 2 puff Documented by: Amiodarone HCl (Amiodarone 200 Mg Tab) 200 mg PO BID [facility] Apixaban (Apixaban 5 Mg Tab) 5 mg PO BID [facility]; Protocol Last Admin: 06/03/21 09:56 Dose: 5 mg Documented by: Artificial Tears (Artificial Tears-Hypromellose Drops 15 Ml Btl) 2 drops BOTH EYES Q4HR [facility] Last Admin: 06/03/21 09:58 Dose: 2 drops Documented by: Atorvastatin Calcium (Atorvastatin 20 Mg Tab) 20 mg PO HS [facility] Last Admin: 06/02/21 21:28 Dose: 20 mg Documented by: Ferrous Sulfate (Ferrous Sulfate 325 Mg Tab) 325 mg PO DAILY [facility] Last Admin: 06/03/21 09:56 Dose: 325 mg Documented by: Folic Acid (Folic Acid 1 Mg Tab) 1 mg PO DAILY [facility] Last Admin: 06/03/21 09:56 Dose: 1 mg Documented by: Furosemide (Furosemide 10 Mg/Ml 4 Ml Vial) 40 mg IV DAILY [facility] Last Admin: 06/03/21 09:57 Dose: 40 mg Documented by: Hydrocortisone Sodium Succinate (Hydrocortisone Succinate 100 Mg/2 Ml Vial) 100 mg IV Q6HR [facility] Last Admin: 06/03/21 05:21 Dose: 100 mg Documented by: Hydromorphone HCl (Hydromorphone 1 Mg/Ml 1 Ml Syringe) 1 mg IVP Q2HR PRN PRN Reason: Pain Last Admin: 06/02/21 10:45 Dose: 1 mg Documented by: Norepinephrine Bitartrate 4 mg (/ Sodium Chloride) 254 mls @ 13.697 mls/hr IV .[id number] [facility]; Protocol Last Titration: 06/03/21 11:08 Dose: 0.03 mcg/kg/min, 8.218 mls/hr Documented by: Propofol 1,000 mg/ IV Solution 100 mls @ 0 mls/hr IV .Q0M [facility]; Protocol Last Titration: 06/03/21 13:00 Dose: 5 mcg/kg/min, 2.58 mls/hr Documented by: Meropenem 1 gm/ Sodium (Chloride) 100 mls @ 33.3 mls/hr IVPB Q8H [facility]; Protocol Last Admin: 06/03/21 05:21 Dose: 33.3 mls/hr Documented by: Dexmedetomidine HCl 400 mcg/ (IV Solution) 100 mls @ 4.45 mls/hr IV .[id number] [facility]; Protocol Last Admin: 06/03/21 10:21 Dose: Not Given Documented by: Amiodarone HCl 450 mg/ (Dextrose/Water) 250 mls @ 16.667 mls/hr IV .Q15H [facility]; Protocol Stop: 06/04/21 05:29 Last Admin: 06/03/21 11:02 Dose: 0.5 mg/min, 16.667 mls/hr Documented by: Midodrine (Midodrine 5 Mg Tab) 10 mg PO AC-TID [facility] Last Admin: 06/03/21 05:21 Dose: 10 mg Documented by: Miscellaneous Information (Potassium Replacement Protocol 1 Each Misc) 1 each MISCELLANE DAILY PRN; Protocol PRN Reason: Per Protocol Nystatin (Nystatin 100,000 Unit/Ml Susp 500,000 Unit/5 Ml Cup) 500,000 unit PO QID [facility] Last Admin: 06/03/21 09:56 Dose: 500,000 unit Documented by: Olanzapine (Olanzapine Odt 5 Mg Tab) 5 mg PO DAILY [facility] Last Admin: 06/03/21 09:56 Dose: 5 mg Documented by: Olanzapine (Olanzapine Odt 10 Mg Tab) 20 mg PO HS [facility] Last Admin: 06/02/21 21:28 Dose: 20 mg Documented by: Pantoprazole Sodium (Pantoprazole 40 Mg/10 Ml Vial) 40 mg IVP DAILY [facility] Last Admin: 06/03/21 09:57 Dose: 40 mg Documented by: Physical Exam: Gen: this is a 70-year-old male currently sedated and intubated. 50% mechanical ventilation with a PEEP of 5 HEENT: Head is atraumatic, normocephalic. Pupils equal, round. Sclerae is anicteric. NECK: Supple. No JVD. No lymphadenopathy. No thyromegaly. LUNGS: Diminished breath sounds bilaterally with coarse rhonchi and crackles noted. No intercostal retractions. HEART: S1, S2 are muffled ABDOMEN: Soft. Bowel sounds are present. No masses. No tenderness. EXTREMITIES: No pedal edema. No calf tenderness. NEUROLOGICAL: Patient is currently intubated and sedated Assessment: Acute COVID-19 infection with acute COVID-19 bilateral interstitial pneumonia, right more than left with acute hypoxic respiratory failure, now requiring mechanical ventilation with extubation on 05/24/2021, and re-intubation on 05/25/2021 status post peg tube and tracheostomy placement Acute kidney injury secondary to acute tubular necrosis from septic shock Chronic kidney disease stage III secondary to nephrosclerosis Hypoglycemia, improved Change in mental status, metabolic encephalopathy, multifactorial Falling, gait dysfunction Anemia, normocytic anemia of undetermined significance Hypernatremia from poor oral intake Hyperkalemia secondary to acute kidney injury, resolved Elevated d-dimer history of coronary artery disease history of chronic obstructive pulmonary disease Gastroesophageal reflux disease history of bipolar, schizoaffective disorder and schizophrenia History of nicotine dependence Severe protein calorie malnutrition with a BMI of 19.1 No code Plan: Recommend to continue with current medications and follow along closely with multiple medical consultations. Prognosis remains extremely guarded with multiple complex medical issues noted. Patient is status post peg and trach placement and continues on mechanical vent. Continued attempts of sedation holiday to assess mentation and weaning. Currently on propofol at the moment. Not tolerating extremely well. Has Dilaudid as well. tube feedings being tolerated. Recommend continue with current medications and patient has been maintained on IV antibiotics with infectious disease following.. Patient will continue on merrem . Chest x-ray reviewed as mentioned above. Recommend repeat labs in the morning along with chest xray. IV fluids discontinued and giving IV lasix. Significant scrotal and penis swelling noted. Nephrology following as well. Again due to multiple complex medical issues prognosis is quite guarded. Objective - Vital Signs Vital signs: Vital Signs Temp 96.8 F L 06/03/21 04:00 Pulse 124 H 06/03/21 07:15 Resp 24 06/03/21 07:15 BP 107/62 06/03/21 07:15 Pulse Ox 100 06/03/21 07:15 Intake & Output 06/02/21 06/03/21 06/03/21 18:59 06:59 18:59 Intake Total 1725.319 6357.547 176.622 Output Total 3730 2170 Balance -2631.715 -1077.453 176.622 Weight 89 kg 86 kg Intake: IV 543 299 0.9 NaCl- 240 260 Dextrose 5% in Water 1, 170 000 ml @ 75 mls/hr IV . [id number] [facility] Rx#:[id number] Meropenem 100 pressure bag 33 39 Intake, IV Titration 207.285 300.547 176.622 Amount Cisatracurium 200 mg In 6.853 109.826 Sodium Chloride 0.9% 180 ml @ 1 MCG/KG/MIN 5.34 mls/hr IV .Q24H [facility] Rx#: [id number] Dexmedetomidine/0.9% NaCl 40.383 30.557 (Pmx) 400 mcg In Empty Bag 1 bag @ 0.2 MCG/KG/HR 4.45 mls/hr IV .[id number] [facility] Rx#:[id number] Norepinephrine 4 mg In 25.728 119.939 66.796 Sodium Chloride 0.9% 250 ml @ 0.05 MCG/KG/MIN 13. 697 mls/hr IV .[id number] [facility] Rx#:[id number] propofoL 1,000 mg In 141.174 143.198 Empty Bag 1 bag @ Titrate IV .Q0M [facility] Rx#: [id number] Tube Feeding 318 403 Other 30 90 Output: Urine 3730 2170 Other: Voiding Method Indwelling Catheter Indwelling Catheter ABP, PAP, CO, CI - Last Documented Arterial Blood Pressure 109/64 - Labs CBC & Chem 7: 06/03/21 04:05 06/03/21 18:00 Labs: Abnormal Lab Results - Last 24 Hours (Table) 06/02/21 06/02/21 06/02/21 Range/Units 11:40 17:26 23:55 WBC (3.8-10.6) k/uL RBC (4.30-5.90) m/uL Hgb (13.0-17.5) gm/dL Hct (39.0-53.0) % Plt Count (150-450) k/uL ABG pH (7.35-7.45) ABG pCO2 (35-45) mmHg ABG pO2 (83-108) mmHg ABG HCO3 (21-25) mmol/L ABG Total CO2 (19-24) mmol/L ABG O2 Saturation (94-97) % Potassium (3.5-5.1) mmol/L Carbon Dioxide (22-30) mmol/L BUN (9-20) mg/dL Creatinine (0.66-1.25) mg/dL Glucose (74-99) mg/dL POC Glucose (mg/dL) 104 H 110 H 114 H (75-99) mg/dL 06/03/21 06/03/21 06/03/21 Range/Units 04:05 04:05 05:55 WBC 11.8 H (3.8-10.6) k/uL RBC 3.46 L (4.30-5.90) m/uL Hgb 10.9 L (13.0-17.5) gm/dL Hct 33.7 L (39.0-53.0) % Plt Count 582 H (150-450) k/uL ABG pH (7.35-7.45) ABG pCO2 (35-45) mmHg ABG pO2 (83-108) mmHg ABG HCO3 (21-25) mmol/L ABG Total CO2 (19-24) mmol/L ABG O2 Saturation (94-97) % Potassium 3.4 L (3.5-5.1) mmol/L Carbon Dioxide 31 H (22-30) mmol/L BUN 40 H (9-20) mg/dL Creatinine 1.42 H (0.66-1.25) mg/dL Glucose 134 H (74-99) mg/dL POC Glucose (mg/dL) 141 H (75-99) mg/dL 06/03/21 Range/Units 06:12 WBC (3.8-10.6) k/uL RBC (4.30-5.90) m/uL Hgb (13.0-17.5) gm/dL Hct (39.0-53.0) % Plt Count (150-450) k/uL ABG pH 7.25 L (7.35-7.45) ABG pCO2 74 H* (35-45) mmHg ABG pO2 128 H (83-108) mmHg ABG HCO3 33 H (21-25) mmol/L ABG Total CO2 35 H (19-24) mmol/L ABG O2 Saturation 98.5 H (94-97) % Potassium (3.5-5.1) mmol/L Carbon Dioxide (22-30) mmol/L BUN (9-20) mg/dL Creatinine (0.66-1.25) mg/dL Glucose (74-99) mg/dL POC Glucose (mg/dL) (75-99) mg/dL Microbiology - Last 24 Hours (Table) 05/28/21 10:28 Blood Culture - Preliminary Blood No Growth after 120 hours
[2021-06-04 04:14] LABS: Glucose,Whole Blood 97 mg/dL (75-99)
[2021-06-04] MEDS: ARTIFICIAL TEARS-HYPROMELLOSE DROPS 15 ML BTL BOTH EYES SCH ×6 (04:18→23:33)
[2021-06-04 04:57] LABS: Basophils % (A) 0 %; Eosinophils % (A) 0 %; HGB 10.1 gm/dL (13.0-17.5); Lymphocytes # (A) 0.2 k/uL (1.0-4.8); Lymphocytes % (A) 3 %; MCHC 34.7 g/dL (31.0-37.0); MCV 95.2 fL (80.0-100.0); Mean Platelet Volume 7.4; Monocytes # (A) 0.4 k/uL (0-1.0); Monocytes % (A) 4 %; Neutrophils # (A) 7.6 k/uL (1.3-7.7); Neutrophils % (A) 93 %; Platelet Count 425 k/uL (150-450); RBC 3.05 m/uL (4.30-5.90); RDW 14.7 % (11.5-15.5); WBC 8.2 k/uL (3.8-10.6)
[2021-06-04 05:17] LABS: C Reactive Protein 0.6 mg/dL (<1.0); Calcium 8.2 mg/dL (8.4-10.2); Potassium 3.1 mmol/L (3.5-5.1); Total Bilirubin 0.3 mg/dL (0.2-1.3); Total Protein 4.6 g/dL (6.3-8.2)
[2021-06-04] MEDS: NOREPINEPHRINE 4 MG in SODIUM CHLORIDE 0.9% 250 ML IV SCH (05:46)
[2021-06-04] MEDS: POTASSIUM BICARBONATE/CIT AC 20 MEQ TABLET.EFF NG-TUBE SCH ×5 (05:51→23:32)
[2021-06-04] MEDS: MIDODRINE 5 MG TAB PO SCH ×3 (05:51→20:58)
[2021-06-04] MEDS: HYDROCORTISONE SUCCINATE 100 MG/2 ML VIAL IV SCH ×3 (05:51→23:32)
[2021-06-04] MEDS: MEROPENEM 1 GM in SODIUM CHLORIDE 0.9% 100 ML IVPB SCH ×3 (05:59→23:30)
[2021-06-04 06:01] LABS: ABG Base Excess 10.9 mmol/L; ABG HCO3 35 mmol/L (21-25); ABG Oxygen Saturation 98.2 % (94-97); ABG PCO2 48 mmHg (35-45); ABG PH 7.47 (7.35-7.45); ABG PO2 88 mmHg (83-108); ABG TCO2 36 mmol/L (19-24)
[2021-06-04 06:21] LABS: Allen Test Performed? No
--- NOTE | 2021-06-04 08:18 | XR ---
EXAMINATION TYPE: XR chest 1V portable, semiupright DATE OF EXAM: 06/04/2021 Comparison: 06/02/2021 Clinical History: 70-year-old male COVID Findings: Tracheostomy cannula. Right CVC tip in the upper atrium. Heart upper limits of normal in size. Hyperi nflation compatible with underlying emphysema. Slight increase in small to moderate layering right an d small layering left pleural effusions with adjacent opacity. Impression: COPD and borderline cardiomegaly. Slight worsening in small to moderate layering right and small laye ring left pleural effusions with adjacent atelectasis and/or consolidation.
[2021-06-04] MEDS: ALBUTEROL HFA INHALER INHALATION SCH ×4 (08:54→19:24)
[2021-06-04] MEDS: NYSTATIN 100,000 UNIT/ML SUSP 500,000 UNIT/5 ML CUP PO SCH ×4 (08:57→21:00)
[2021-06-04] MEDS: HYDROmorphone 1 MG/ML 1 ML SYRINGE IVP PRN ×2 (08:57→16:55)
[2021-06-04] MEDS: AMIODARONE 200 MG TAB PO SCH ×2 (09:00→20:58)
[2021-06-04] MEDS: FOLIC ACID 1 MG TAB PO SCH (09:00)
[2021-06-04] MEDS: FERROUS SULFATE 325 MG TAB PO SCH (09:01)
[2021-06-04] MEDS: FUROSEMIDE 10 MG/ML 4 ML VIAL IV SCH (09:01)
[2021-06-04] MEDS: PANTOPRAZOLE 40 MG/10 ML VIAL IVP SCH (09:01)
--- NOTE | 2021-06-04 09:02 | P.PN ---
Subjective Progress Note Date: 06/04/21 Principal diagnosis: Acute COVID-19 pneumonia This is a 70-year-old male patient, brought into the emergency department by a caregiver. The patient is unable to volunteer any history. He has issues with dementia and mental health. In fact he is unable to communicate. He is currently in the hospital for COVID pneumonia. The patient initially went to [place] where he was seen in the [facility] for COVID 19 infection. He was discharged home. This is approximately 4 days ago. Following that, the caregiver sent the patient to our hospital as the patient's condition was getting worse and apparently continued to have worsening mentation. The patient was unable to communicate time of his admission. He was mumbling and unable to make full sentences or other words. He was restless in bed. At times agitated. At times screaming. He was quite uncooperative during the evaluation. No history of any head trauma. The patient apparently had a fall and he sustained a trauma to his neck area following the fall. This occurred at home in a bathtub. In the emergency department, the patient was found to be hypoxic with a pulse ox of 80% and the patient required oxygen. The patient is currently on oxygen at 10 L high flow. Initial CAT scan of the brain and the CAT scan of the C-spine showed no acute process. The patient was given 10 mg of Decadron in the emergency department regarding his COVID 19 pneumonia. Chest x-ray showed bilateral lower lobe airspace disease. Note that the pulmonary infiltrates were worse on the right compared to the leftand the infiltrate was rather asymmetric, which obviously raises concerns for an underlying pneumonia, aspiration and the patient was given a dose of Rocephin and Zithromax in the emergency department. His white cell count is at 6.4 with a hemoglobin of 12 and a platelet count of 130. Sodium was 155 this morning with a potassium level of 6.1, BUN is at 50 with a creatinine of 1.5, LFTs are normal, lactic acid level was at 1.9, pro calcitonin level is at 0.16, d-dimer is at 0.8 and the rest of the coagulation profile is within normal limits. The patient is currently on IV Decadron. On 05/19/2021 patient seen in follow-up in the intensive care unit, overnight his condition continued to deteriorate, and early this morning at 4:00 on 05/19/2021 patient had rapid response team called to the bedside for concern of worsening shortness of breath, and worsening hypoxia, patient was confused and in respiratory distress, he is not answering any questions, on 10 L of oxygen his pulse ox was 94%, however his mental status was significantly altered, patient was transferred to the intensive care unit for high likelihood of intubation, this morning she was intubated and placed on mechanical ventilator, with assist-control mode of ventilation with a rate of 30, tidal on was 300, FiO2 100% and PEEP of 5. Early in the morning his blood gases showed pO2 of 82, pCO2 of 80, and pH of 7.18, this was done and FiO2 of 70%. Post intubation blood gas showed a pO2 of 81, pCO2 of 63, and pH of 7.24, this was done and FiO2 of 50%. Patient was hypotensive following intubation, he was given 2 L of fluid boluses, and his maintenance IV fluid is D5W at 50 ML per hour which will be switched to normal saline, he is on norepinephrine at 0.14 mics per kilo per minute, Diprivan infusion at 50 mics per kilo per minute. He remains on prophylactic Lovenox 40 mg daily, and Decadron 6 mg daily. He remains on his home medications including Lipitor, Plavix, Depakote, iron supplementation, his antipsychotics, midodrine which patient have not been able to take related to his altered mental status. Patient was also suspected to be aspirating, and he was placed on Zosyn for empiric antibiotic coverage. Today's labs have been reviewed, his white blood cell count is 7.1, hemoglobin of 12.7, sodium is 153 and patient has been on D5W at a rate of 100 ML per hour, his oral intake has been extremely poor, potassium is 5.8, chloride is 124, BUN of 69, creatinine is 1.97. Patient's extremely cachectic, and frail. This morning patient had to be intubated and placed on mechanical ventilator, we will initiate tube feedings today, consult registered dietitian for tube feeding recommendation, patient will be fluid bolused, and stabilized hemodynamically. On 05/20/2021 patient seen in follow-up in intensive care unit. Yesterday he was intubated and placed on mechanical ventilator in view of worsening hypoxia and dyspnea. Today he remains sedated, and intubated on assist control mode of ventilation with a rate of 30, tidal volume is 325, FiO2 of 50% and PEEP of 10, this morning blood gases shows pO2 of 95, pCO2 of 70, and pH of 7.18. This was done on the above mentioned ventilator settings, today's chest x-ray shows some improvement of bibasilar infiltrates more so on the right, and possibility of developing small right pleural effusion. Patient is currently on a vasopressor support in the form of norepinephrine is 0.38 mics per kilo per minute which is about 24.7 mics per minute, he is on Diprivan at 50 mics per kilo per minute, and overnight he had episode of hypoglycemia and patient was placed on 10% dextrose at a rate of 100 ML per hour, patient was extremely dehydrated prior to his intubation, his had very poor oral intake. He was given 2 L fluid bolus yesterday, however still requiring vasopressor support, and case was discussed with nephrology who agreed that patient is still extremely intravascular volume depleted, and is recommending another 1 or 2 L fluid bolus today. Today's labs have been reviewed and his white blood cell count is 14.6, hemoglobin is 12.1, platelet count is 223, sodium is 148, potassium is 4.7, chloride is 121, CO2 is 23, BUN of 49 creatinine is 1.93, his LDH is 560, within normal limits, and CRP is 7.2, improving, his last proBNP from a couple days ago was 5790 however patient seems to be extremely dehydrated. His pro calcitonin levels were negative 2 at 0.16, and 0.12 however his chest x-ray findings suggest possibility of aspiration pneumonia, and patient was placed on Zosyn for possibility of aspiration. Sputum culture has been sent and pending, preliminary Gram stain showing few PMNs, rare budding yeast, final culture is pending, blood cultures are negative thus far. On 05/21/2021 patient seen in follow-up in intensive care unit, patient remains sedated, and intubated on assist control mode of ventilation with a rate of 36, tidal volume was 375, FiO2 of 40% and 5. The blood count shows pO2 of 71, pCO2 of 41, pH is 7.40, today's chest x-ray has been reviewed showing bilateral airspace disease with interstitial changes and prominent lung volumes indicative of underlying COPD. Vital signs have been stable overnight, patient is on norepinephrine 0.1 mics per kilo per minute, Diprivan is present, and D5W at 100 ML per hour, and plan an 70-20 ML per hour, he is on tube feedings with Nepro at 20 ML per hour and 10 of water flushes, he is in sinus mechanism with a rate of 82 BPM, patient has had fevers overnight with a temp of 100.5F. He is covered with Zosyn. His blood cultures have been negative, his sputum culture showed yeast species, culture is pending. Today's labs have been reviewed and his white blood cell count is 8.5, hemoglobin is 10.4, his sodium is improved and is down to 149, in follow-up sodium level came back at 151, patient remains on free water at 100 ML per hour, nephrology is following. Potassium is 4.0, chloride is 121, BUN is 40, creatinine is improved and is down to 1.58, his cortisol level 7, and this was on IV Decadron 6 mg daily, and patient remains on prophylactic dose Lovenox, Zosyn, yesterday he received an additional liter bolus in IV fluids. His urine output is in the order of 100-125 ML per hour. Overall his oxygenation and ventilation have significantly improved, and patient is maintaining stable O2 saturations on FiO2 of 40% and PEEP of 5, his peak Pressure is only 18, his plateau is 13. On 05/22/2021 patient seen in follow-up in intensive care unit, he remains intubated on mechanical ventilator, currently assist control mode of ventilation with a rate at 36, tidal 375, FiO2 40% and PEEP of 5, this was blood gas shows pO2 of 112, pCO2 40, pH of 7.40 and this was done and the above-mentioned vent settings, today's chest x-ray has been reviewed showing chronic emphysematous pulmonary fibrotic changes with moderate bilateral pleural effusions and susan ateral multifocal increased opacities consistent with COVID-19 infection. No significant change compared the day before. Patient's sedation has been placed on hold this morning. Patient is waking up, becoming slightly restless, however he is not following commands yet. He is on D5W at rate of 100 ML per hour, norepinephrine drip has been weaned off, patient continues on hydrocortisone 100 mg every 8 hours for his serum cortisol level of 7, his TSH level was 0.923, within normal limits. He's tolerating tube feedings he is receiving Nepro at 27 per hour with a goal of 27 standard water flushes, vital signs have been stable, no fever overnight. He did have a low-grade fever early this morning with a temp of 99.7F. His blood cultures have been negative, his sputum culture showed Romelia species. Patient remains on Zosyn for antibiotic coverage, on prophylactic Lovenox 40 mg daily. The rest of patient's labs have been reviewed, his white blood cell count is 6.0, hemoglobin of 9.6, sodium is improving and is down to 148, potassium is 4.0, chloride is 122, BUN is 26, creatinine is improving and is down to 1.55. On 05/23/2021 patient seen in follow-up in the intensive care unit. He remains intubated, on mechanical ventilator, currently on assist control mode of ventilation with a rate of 36, tidal volume 375, FiO2 of 40% and PEEP of 5. This morning's blood gas shows pO2 of 136, pCO2 of 40, and pH of 7.42, this was done and above-mentioned vent settings. Today's chest x-ray has been reviewed showing chronic emphysematous and pulmonary fibrotic changes with small bilate ral pleural effusions and bilateral multifocal opacities, without significant change compared to the prior study. Today's labs have been reviewed, white blood cell count is 5.5, hemoglobin is 8.9, sodium is 147, improving potassium is 3.5, chloride is 118, CO2 is 27, BUN 37, creatinine is 1.44. Patient is receiving D5W 1 50 ML per hour, nephrology is managing, he remains on hydrocortisone 100 mg every 8 hours, his been off vasopressor support for 48 hours. He has had no fever or chills. He remains on Zosyn. Sputum culture showed Romelia species, blood cultures have been negative. Neurologically patient has been off sedation for the past 24 hours. However patient is not following commands, although he is awake, at times he becomes restless, his been getting intermittent doses of when necessary on as-needed basis. We understand patient has underlying history of dementia however his baseline mental status is not known to us, his level of consciousness is certainly improved, however patient has not been able to follow any instructions. And for that reason patient has not been able to tolerate weaning trials, last night he had to be placed on assist-control mode of ventilation because he was extremely anxious, she did tolerate pressure support of 14 and IMV of 10 for a couple of hours, however became very agitated, and was placed back on assist control mode of ventilation. he is tolerating tube feedings. On 05/27/2021 patient seen in follow-up in the intensive care unit, patient remains intubated, and sedated on assist control mode of ventilation with a rate of 30, tidal 350, FiO2 of 50% and PEEP of 5, this morning's blood gas shows pO2 of 89, pCO2 45, pH is 7.3. Today's chest x-ray showing stable portable chest, bibasilar opacities, no significant change from prior exam, patient remains on Diprivan at 35 mics per kilo per minute, dopamine remains at 5 mics per kilo per minute, norepinephrine is at 1.5 mics per minute, D5W remains a 75 ML per hour, and tube feedings are currently on hold for recent trach and PEG placement by Dr. Mazariegos yesterday on 05/26/2021. He's had no acute events overnight. Today's labs have been reviewed, white blood cell count has increased and is currently 24.8, hemoglobin is 10.8, platelet count is 366, sodium is 140, potas sium is 3.2, chloride is 112, CO2 is 26, BUN is 18 creatinine is 1.14. Sputum culture from 2 days ago is showing gram-negative bacilli, final culture is still pending, patient currently remains on Zosyn, blood cultures are negative On 05/28/2021 patient seen in follow-up in intensive care unit, he remains trached to the ventilator, on assist control mode of ventilation with a rate of 30, tidal vital 350, FiO2 50% and PEEP of 5. He is sedated with Diprivan at 30 mics per kilo per minute, he is on 0.9 normal saline at a 20 ML per hour, D5W at 75 ML per hour, he is requiring small doses of norepinephrine and 5 mics per minute. Patient has been intermittently bradycardic with a heart rate in the low 40s, currently is in sinus mechanism with a rate of 60, his been experiencing intermittent hypotension, episodes of tachycardia. He is hypothermic this morning with a temp of 94.8F, he is on the warming blanket. Patient was found to have ESBL E. coli in his sputum culture, current antibiotic coverage is Avycaz, ID service is following. A new set of blood cultures will be sent, we'll send another cortisone level. Patient currently remains on hydrocortisone at 50 mg twice daily, however he may be experiencing worsening sepsis and septic shock. Today's labs have been reviewed, his white blood cell count is 16.1, hemoglobin is 9.7, d-dimer is 1.11, sodium is 140, potassium is 3.8, chloride is 111, CO2 is 26, BUN is 16 creatinine is 1.1 his LDH is 513, CRP is 15.8. His chest x-ray shows chronic emphysematous and pulmonary fibrotic changes with small right greater than left bilateral pleural effusions and bilateral mid to lower lung infiltrates. On 05/29/2021 patient seen in follow-up in intensive care unit, patient is trached to the ventilator, currently on assist control with a rate of 30, tidal vital 350, FiO2 40%, PEEP of 5, this. Blood gas shows pO2 of 94, pCO2 55, and pH of 7.31. Today's chest x-ray shows COPD with peripheral and basilar COVID infiltrates, similar to prior, slightly worsened. Patient has been afebrile overnight, no hyperthermia, he is hypotensive, requiring levo fed at 10 mics per minute. Yesterday we switched his antibiotic coverage from Avycaz to Meropenem in view of ESBL E. coli in his sputum. 2 more blood cultures have been sent, p ending at this time. Cortisol level yesterday was 18, hydrocortisone level was increased to 50 mg 3 times a day. Urine output is any order of 30-60 ML per hour. Today's labs have been reviewed, blood blood cell count is improving down to 15.6, hemoglobin is 10.2, sodium is 140, potassium is 4.3, chloride is 112, CO2 is 26, B1 is 16, creatinine is 1.23. LDH is 426 within normal limits, CRP is 12.5. On 06/02/2021 patient seen in follow-up in the intensive care unit. Patient is currently trached to the ventilator, he is on assist-control mode of ventilation with a rate of 30, tidal lungs 350, FiO2 of 40 percent, and PEEP of 5, this morning's blood gas shows pO2 of 98, pCO2 45, pH of 7.41. O2 saturation is 97% on those above-mentioned ventilator settings, peak pressures 41, plateau pres sure is 22. Today's chest x-ray showing chronic emphysematous and pulmonary fibrotic changes with persistent small bilateral pleural effusions and lower lung infiltrates and atelectasis. No significant change from the prior exam. Patient is currently on D5W at a rate of 75 ML per hour, he is requiring small dose of norepinephrine and propofol at 40 mics per kilo per minute. Patient was given a sedation holiday yesterday and per nursing reports patient was opening eyes spontaneously however not following any instructions. Patient was placed back on sedation at at bedtime. Today's blood work has been reviewed showing white blood cell count is 6.8, hemoglobin of 9.9, platelet count is 584, sodium is 138, potassium is 3.9, chloride is 110, B1 is 30 creatinine is 1.33. Patient's inflammatory markers from a few days ago show a normal LDH of 413, CRP of 5.5. Patient is currently being treated for ESBL E. coli pneumonia, and patient is covered with meropenem. Vital signs have been stable overnight, patient has been afebrile. Michelle catheter is in place, and urine output is in order of 100-150 ML per hour. Is tolerating tube feedings he is receiving Nepro 2.2 at 22 ML per hour with standard water flushes 30 mL every 4 hours. Patient has been on stress doses of hydrocortisone at 100 mg every 6 hours. He is also on midodrine 10 mg 3 times daily, he is on prophylactic dose Lovenox 40 mg once daily, and Protonix for GI prophylaxis, generally patient has diffuse edema in his trunk, upper and lower extremities, and overall he is in +27 kg net fluid balance since admission. Patient has had D5W infusion infusing at 75 ML per hour for hypernatremia and hypoglycemia since 05/21/2021. Patient is tolerating tube feedings there has been no recurrence of hypoglycemia and at this time D5W can be safely discontinued. On 06/03/2021 patient seen in follow-up in intensive care unit, yesterday he tolerated sedation holiday, he was placed on Precedex, he did not follow instruction however he was opening his eyes, he was comfortable without significant agitation and subsequently patient was placed on pressure-support with 12 and a CPAP of 5 and FiO2 of 40% and tolerated several hours of it. He was placed on small dose of Precedex to prevent him from stacking his breasts. In the evening he started becoming agitated, he was becoming hypoxic, he was difficult to ventilate, peak pressure alarm was alarming on the ventilator. The tracheostomy tube was adjusted, stat chest x-ray was obtained showing blunting of the costophrenic angles consistent with bilateral pleural effusions, mild pulmonary congestion, and tracheostomy tube which appear to be against the back wall of the trachea and this was thought to be the possible cause of the high peak pressure alarms. There was no evidence of pneumothorax on the chest x-ray. The tracheostomy tube was adjusted and subsequently patient was easier to ventilate, he was recently dated with the propofol and placed on Nimbex for the night. At the same time he went into A. fib with RVR, her own infusion at 1 mg/min after the initial bolus of 150 mg IV piggyback was administered, he currently remains in atrial fibrillation with a better controlled rate at 95 BPM. He is sedated paralyzed and trach to the ventilator on assist control mode of ventilation with a rate of 24, TV 300, FiO2 at 60% and PEEP of 5, this morning blood gas shows pO2 of 128, pCO2 of 74, pH 7.25. Subsequently FiO2 has been dropped down to 40% and patient is maintaining O2 saturations at around 100%, currently hemodynamically he still requiring a small dose of norepinephrine at 0.07 mics per kilo per minute, 0.9 normal saline area to 20 ML per hour and amiodarone drip at 1 mg/m as mentioned above. No other drips. She is tolerating tube feedings she is receiving Nepro at 31 with a goal of 31 and standard water flushes 30 mL every 4 hours. He was started on IV diuretics with Lasix 40 mg every 12 hours, and he has produced 5.9 L in the urine output last 24 hours and he is in -3.7 L net fluid balance over the last 24 hours. This morning's labs show white blood cell count of 11.8, hemoglobin of 10.9, sodium is 139, potassium is 3.4, chloride is 104, CO2 is 31, BUN is 40 creatinine is 1.42. Overall generally she looks less swollen with less tightness in his abdominal wall, and improved bilateral upper and lower extremity edema. On the 06/04/2021 patient seen in follow-up in the intensive care units. Patient today is awake, he is a bit restless, he's trying to talk around his tracheostomy, unable to squeeze hands on command, he did actually say good morning back to me. All sedation has been off since yesterday, patient is c urrently just on 0.9 normal saline 120 ML per hour, no other drips. Hemodynamically patient has been stable, he is in sinus mechanism, and she converted yesterday. No recurrent episodes of atrial fibrillation. His amiodarone infusion has been transitioned to oral amiodarone 200 mg twice daily. Yesterday patient was placed on pressure support trials very briefly, became very restless and had to be placed on assist-control mode of ventilation for the night, he is currently on assist control with a rate of 24, tidal vital 300 FiO2 of 40% and PEEP of 5. This morning's blood gas shows pO2 of 88, pCO2 48, and pH of 7.47. This was done on above-mentioned ventilator settings. Today's chest x-ray shows slight worsening in the moderate right and small left plural effusion. Yesterday patient's Lasix was held per nephrology. Today patient will receive 40 of Lasix this morning. Generally patient still appears to be quite fluid overloaded with generalized edema in his upper and lower extremities and his trunk. Patient has produced 2.4 L in urine output, and he is in -398 mL net fluid balance over the last 24 hours. Patient has been on meropenem for ESBL E. coli in the sputum is 05/28/2021. Vital signs have been stable, no fever or chills, hemodynamically has been stable. He remains on hydrocortisone 100 mg every 6 hours. He has been off vasopressors for the last almost 24 hour s. Today's lab 7 reviewed, with blood cell count is 8.2, hemoglobin is 10.1, platelet count is 425, sodium is 140, potassium is 3.1, chloride is 105, CO2 is 34, BUN is 45 and creatinine is 1.45. Serum potassium has been replaced per protocol and remains persistently low despite the replacements. His inflammatory markers are within the normal range today with LDH at 452, and CRP of 0.6. Patient has been receiving nutritional support with Nepro at 31 mL with a goal of 31 and standard water flushes, tolerating them well. Objective - Vital Signs Vital signs: Vital Signs Temp 36.6 F L 06/04/21 04:00 Pulse 63 06/04/21 07:00 Resp 24 06/04/21 07:00 BP 121/60 06/04/21 07:00 Pulse Ox 100 06/04/21 07:00 Intake & Output 06/03/21 06/04/21 06/04/21 18:59 06:59 18:59 Intake Total 1105.810 920.774 54 Output Total 1875 550 60 Balance -769.190 370.774 -6 Weight 84.4 kg Intake: IV 386.28 292.66 23 0.9 NaCl- 220 240 20 Amiodarone 450 mg In 133.28 16.66 Dextrose 5% in Water 250 ml @ 0.5 MG/MIN 16.667 mls/hr IV .Q15H [facility] Rx#: [id number] pressure bag 33 36 3 Intake, IV Titration 319.530 166.114 Amount Amiodarone 450 mg In 166.114 Dextrose 5% in Water 250 ml @ 0.5 MG/MIN 16.667 mls/hr IV .Q15H [facility] Rx#: [id number] Cisatracurium 200 mg In 109.826 Sodium Chloride 0.9% 180 ml @ 1 MCG/KG/MIN 5.34 mls/hr IV .Q24H [facility] Rx#: [id number] Norepinephrine 4 mg In 123.776 Sodium Chloride 0.9% 250 ml @ 0.05 MCG/KG/MIN 13. 697 mls/hr IV .[id number] [facility] Rx#:[id number] propofoL 1,000 mg In 85.928 Empty Bag 1 bag @ Titrate IV .Q0M [facility] Rx#: [id number] Tube Feeding 310 372 31 Other 90 90 Output: Urine 1875 550 60 Other: Voiding Method Indwelling Catheter Indwelling Catheter ABP, PAP, CO, CI - Last Documented Arterial Blood Pressure 126/59 - Exam GENERAL EXAM: Frail and generally edematous 70-year-old white male, trached to the ventilator on assist control mode of ventilation with a rate of 24, tidal volume 300, FiO2 40% and PEEP of 5, comfortable in no apparent distress. HEAD: Normocephalic/atraumatic. EYES: Normal reaction of pupils, equal size. Conjunctiva pink, sclera white. NOSE: Clear with pink turbinates. THROAT: No erythema or exudates. NECK: No masses, no JVD, no thyroid enlargement, no adenopathy. Midline tracheostomy in place, clean dry and intact, and patient is connected to the ventilator with assist control mode of ventilation CHEST: No chest wall deformity. Symmetrical expansion. LUNGS: Equal air entry with diminished breath sounds and crackles CVS: Regular rate and rhythm, normal S1 and S2, no gallops, no murmurs, no rubs ABDOMEN: Soft, nontender. No hepatosplenomegaly, normal bowel sounds, no guarding or rigidity. PEG tube is in place EXTREMITIES: No clubbing, with severe generalized swelling noted in upper and lower extremities no cyanosis, and truncal edema, 2+ pulses and upper and lower extremities. MUSCULOSKELETAL: Muscle strength and tone normal. SPINE: No scoliosis or deformity SKIN: No rashes. His and has various areas of decubitus ulcers, stage II with his ulcers on buttocks, bilateral hips, left elbow, and deep tissue injury on his bilateral heels CENTRAL NERVOUS SYSTEM: Sedated, intubated No focal deficits, tone is normal in all 4 extremities. - Labs CBC & Chem 7: 06/04/21 04:20 06/04/21 04:20 Labs: Abnormal Lab Results - Last 24 Hours (Table) 06/03/21 06/04/21 06/04/21 Range/Units 11:27 04:20 04:20 RBC 3.05 L (4.30-5.90) m/uL Hgb 10.1 L (13.0-17.5) gm/dL Hct 29.0 L (39.0-53.0) % Lymphocytes # 0.2 L (1.0-4.8) k/uL ABG pH (7.35-7.45) ABG pCO2 (35-45) mmHg ABG HCO3 (21-25) mmol/L ABG Total CO2 (19-24) mmol/L ABG O2 Saturation (94-97) % Potassium 3.1 L (3.5-5.1) mmol/L Carbon Dioxide 34 H (22-30) mmol/L BUN 45 H (9-20) mg/dL Creatinine 1.47 H (0.66-1.25) mg/dL POC Glucose (mg/dL) 151 H (75-99) mg/dL Calcium 8.2 L (8.4-10.2) mg/dL Total Protein 4.6 L (6.3-8.2) g/dL Albumin 2.0 L (3.5-5.0) g/dL 06/04/21 Range/Units 05:49 RBC (4.30-5.90) m/uL Hgb (13.0-17.5) gm/dL Hct (39.0-53.0) % Lymphocytes # (1.0-4.8) k/uL ABG pH 7.47 H (7.35-7.45) ABG pCO2 48 H (35-45) mmHg ABG HCO3 35 H (21-25) mmol/L ABG Total CO2 36 H (19-24) mmol/L ABG O2 Saturation 98.2 H (94-97) % Potassium (3.5-5.1) mmol/L Carbon Dioxide (22-30) mmol/L BUN (9-20) mg/dL Creatinine (0.66-1.25) mg/dL POC Glucose (mg/dL) (75-99) mg/dL Calcium (8.4-10.2) mg/dL Total Protein (6.3-8.2) g/dL Albumin (3.5-5.0) g/dL Microbiology - Last 24 Hours (Table) 05/28/21 10:28 Blood Culture - Final Blood No Growth after 144 hours Assessment and Plan Plan: Assessment: #1. Acute hypoxic respiratory failure related to acute COVID-19 pneumonia, and possibility of bacterial infection/aspiration related pneumonia is not entirely excluded, sputum culture showed ESBL E. coli, and patient will be covered with meropenem. ID service is on the case. Patient was brought into the emergency department on 05/17/2021 per EMS, patient is a poor historian, reportedly has history of bipolar disease and dementia. Came in primarily for evaluation of altered mental status. Transferred from [place] emergency department for COVID-19 related pneumonia. The patient was taken to the hospital in [place] 4 days prior to this admission and the symptom onset was probably even prior to that. Exact onset of symptoms is not known. Patient was transferred to the intensive care unit on 05/19/2021 for worsening hypoxia, and hypercapnia, and altered mental status, and was intubated on 05/19/2021 on assist control mode of ventilation with a rate of 30, tidal on his 350, FiO2 40% and PEEP of 5. Patient had tolerated pressure support trials, and was extubated on 05/24/2021 however failed and was reintubated on 05/25/2021. On 06/04/2021 patient is awake, he is mouthing words around his trach, he is able to give some simple responses, does not consistently follow commands yet, generally he is quite weak. We will attempt pressure-support 5 and CPAP 5 today, with FiO2 of 40% #2. Hypotension, related to dehydration, and possibility of septic shock. Patient remains on norepinephrine for vasopressor support, serum cortisol level was only 7, patient remains on stress doses of hydrocortisone of 100 mg every 6 hours #2. Altered mental status with worsened from baseline #3. History of dementia and schizoaffective disorder #4. Acute dehydration and hypernatremia, on the D5W at 100 ML per hour, resolved #5. Chronic stage 3 kidney disease #6. COPD #7. History of coronary artery disease #8. GERD/reflux #9. Hyperlipidemia #10. Acute kidney injury related to ATN, and dehydration, improved #11. Hyperkalemia related to [place], resolved, patient has been having hypokalemia #12. Hypoglcemia, resolved, patient is tolerating tube feedings. #13. Multiple areas of decubitus ulcer including deep tissue injury on bilateral heels, stage II on buttocks, stage II on bilateral hips and stage I on left elbow, present on admission #14. A. fib with RVR on 06/03/2021, patient was started on amiodarone and Eliquis, currently in sinus mechanism Plan: Today's blood gases, labs, CXR and labs reviewed S x-ray showing worsening bilateral pleural effusions, right greater than left We'll give the patient a dose of Lasix today We'll place the patient on pressure-support 5 and CPAP of 5, obtain a set a weaning parameters We'll place back on assist control mode of ventilation at night and if patient shows sign of fatigue We will add maintenance dose of K-Lyte potassium replacement daily Continue monitoring patient's serum potassium and replace appropriately called if needed Patient is in sinus mechanism, his IV amiodarone has been converted to oral amiodarone Patient has been started on Eliquis yesterday hemodynamically stable, we can cut back his hydrocortisone to 50 mg every 8 hours Continue nutritional support We'll obtain a PICC line We'll ask surgery if his trach can be switched to a Shiley trach Consult social work for initiation of LTAC placement process We'll continue to follow his progress I performed a history & physical examination of the patient and discussed their management with my nurse practitioner, Veronica Chiu. I reviewed the nurse practitioner's note and agree with the documented findings and plan of care. Lung sounds are positive for diminished breath sounds throughout the lung watson. The findings and the impression was discussed with the patient. I a ttest to the documentation by the nurse practitioner. Time with Patient: Greater than 30
[2021-06-04] MEDS: OLANZapine ODT 5 MG TAB PO SCH (09:08)
[2021-06-04 11:43] LABS: Glucose,Whole Blood 97 mg/dL (75-99)
[2021-06-04] MEDS ORDERED: Magnesium Replacement Protocol 1 EACH MISC MISCELLANE PRN (12:58)
[2021-06-04] MEDS: APIXABAN 5 MG TAB PO SCH ×2 (13:00→20:57)
[2021-06-04] MEDS: MAGNESIUM SULFATE-D5W PMX 1 GM in DEXTROSE/WATER 1 100ML.BAG IVPB SCH ×2 (13:43→15:53)
[2021-06-04] MEDS: POTASSIUM BICARBONATE/CIT AC 20 MEQ TABLET.EFF PO SCH ×2 (13:44→15:52)
[2021-06-04] MEDS ORDERED: LIDOCAINE 1% INJ 10MG/ML (20 ML MDV) ONE (15:01)
[2021-06-04] MEDS ORDERED: LIDOCAINE 1% INJ 10MG/ML (20 ML MDV) SQ ONE (15:26)
--- NOTE | 2021-06-04 15:58 | P.PN ---
Subjective Progress Note Date: 06/04/21 CHIEF COMPLAINT: COVID-19 pneumonia HISTORY OF PRESENT ILLNESS: Patient is in the ICU intubated and sedated. Patient is status post PEG tube and tracheostomy placement on 05/26/21. Patient is out of isolation. No issues with the tracheostomy or PEG tube. Patient seen and examined with Dr. bill PHYSICAL EXAM: VITAL SIGNS: Reviewed. GENERAL: no acute distress. HEENT: Moist buccal mucosa. Head is atraumatic, normocephalic. Tracheostomy site clean dry and intact ABDOMEN: Soft. Nondistended. PEG tube site clean dry and intact NEUROLOGIC: Intubated and sedated ASSESSMENT: 1. Acute hypoxic respiratory failure secondary to COVID-19 pneumonia with mechanical ventilation and difficulty weaning from the vent status post tracheostomy placement 2. Severe protein calorie malnutrition status post PEG tube placement PLAN: -Continue tube feedings -Continue supportive care -Continue ICU management Physician Learning Manager note has been reviewed by physician. Signing provider agrees with the documented findings, assessment, and plan of care. Objective - Vital Signs Vital signs: Vital Signs Temp 97.9 F 06/04/21 12:00 Pulse 67 06/04/21 15:00 Resp 17 06/04/21 15:00 BP 112/60 06/04/21 09:00 Pulse Ox 97 06/04/21 15:00 Intake & Output 06/03/21 06/04/21 06/04/21 18:59 06:59 18:59 Intake Total 1105.810 920.774 546 Output Total 5442 629 1938 Balance -769.190 370.774 -1414 Weight 84.4 kg 84.4 kg Intake: IV 386.28 292.66 207 0.9 NaCl- 220 240 180 Amiodarone 450 mg In 133.28 16.66 Dextrose 5% in Water 250 ml @ 0.5 MG/MIN 16.667 mls/hr IV .Q15H VAZQUEZ Rx#: [id number] pressure bag 33 36 27 Intake, IV Titration 319.530 166.114 Amount Amiodarone 450 mg In 166.114 Dextrose 5% in Water 250 ml @ 0.5 MG/MIN 16.667 mls/hr IV .Q15H VAZQUEZ Rx#: [id number] Cisatracurium 200 mg In 109.826 Sodium Chloride 0.9% 180 ml @ 1 MCG/KG/MIN 5.34 mls/hr IV .Q24H [facility]ZQUEZ Rx#: [id number] Norepinephrine 4 mg In 123.776 Sodium Chloride 0.9% 250 ml @ 0.05 MCG/KG/MIN 13. 697 mls/hr IV .[id number] [facility]ZQUEZ Rx#:[id number] propofoL 1,000 mg In 85.928 Empty Bag 1 bag @ Titrate IV .Q0M VAZQUEZ Rx#: [id number] Tube Feeding 310 372 279 Other 90 90 60 Output: Urine 8078 145 9820 Other: Voiding Method Indwelling Catheter Indwelling Catheter Indwelling Catheter ABP, PAP, CO, CI - Last Documented Arterial Blood Pressure 121/51 - Labs CBC & Chem 7: 06/04/21 04:20 06/04/21 09:46 Labs: Abnormal Lab Results - Last 24 Hours (Table) 06/04/21 06/04/21 06/04/21 Range/Units 04:20 04:20 05:49 RBC 3.05 L (4.30-5.90) m/uL Hgb 10.1 L (13.0-17.5) gm/dL Hct 29.0 L (39.0-53.0) % Lymphocytes # 0.2 L (1.0-4.8) k/uL ABG pH 7.47 H (7.35-7.45) ABG pCO2 48 H (35-45) mmHg ABG HCO3 35 H (21-25) mmol/L ABG Total CO2 36 H (19-24) mmol/L ABG O2 Saturation 98.2 H (94-97) % Potassium 3.1 L (3.5-5.1) mmol/L Carbon Dioxide 34 H (22-30) mmol/L BUN 45 H (9-20) mg/dL Creatinine 1.47 H (0.66-1.25) mg/dL Calcium 8.2 L (8.4-10.2) mg/dL Total Protein 4.6 L (6.3-8.2) g/dL Albumin 2.0 L (3.5-5.0) g/dL 06/04/21 Range/Units 09:46 RBC (4.30-5.90) m/uL Hgb (13.0-17.5) gm/dL Hct (39.0-53.0) % Lymphocytes # (1.0-4.8) k/uL ABG pH (7.35-7.45) ABG pCO2 (35-45) mmHg ABG HCO3 (21-25) mmol/L ABG Total CO2 (19-24) mmol/L ABG O2 Saturation (94-97) % Potassium 3.3 L (3.5-5.1) mmol/L Carbon Dioxide (22-30) mmol/L BUN (9-20) mg/dL Creatinine (0.66-1.25) mg/dL Calcium (8.4-10.2) mg/dL Total Protein (6.3-8.2) g/dL Albumin (3.5-5.0) g/dL Microbiology - Last 24 Hours (Table) 05/28/21 10:28 Blood Culture - Final Blood No Growth after 144 hours
--- NOTE | 2021-06-04 16:02 | XR ---
EXAMINATION TYPE: XR chest 1V confirm line [facility] DATE OF EXAM: 06/04/2021 COMPARISON: Chest x-ray same dated earlier time HISTORY: Post PICC line placement TECHNIQUE: Single frontal view of the chest is obtained. FINDINGS: There is been interval placement of a left-sided PICC line, distal tip is overlying the velazquez perior vena cava. No pneumothorax or significant interval change. IMPRESSION: No evident complication status post PICC line placement.
--- NOTE | 2021-06-04 16:24 | IR ---
EXAMINATION TYPE: IR cvc insert >=5 years DATE OF EXAM: 06/04/2021 COMPARISON: NONE HISTORY: Pneumonia and respiratory failure, needs long-term intravenous access for therapy FINDINGS: Maximal barrier technique was utilized. Hand hygiene obtained with soap and water and alco hol-based hand rub. The skin overlying the left basilic vein was localized with ultrasound and noted to be compressible and patent by ultrasound. An ultrasound image was obtained and [facility]. Sterile technique utilized with the ultrasound machine. The skin overlying was prepped an d draped and Lidocaine used for local anesthesia. A skin jasiel was made with a scalpel. Access was g ained to the vein under direct ultrasound guidance with a 21-gauge needle and a 0.018 inch wire was a dvanced. Access site was dilated with a peel-away sheath and the catheter tailored to length. Cris ter advanced centrally and a post procedure chest x-ray verified placement with tip at the superior v delia cava. Catheter was fixed to the skin and a sterile dressing placed. Hemostasis achieved and the catheter was aspirated and flushed with sterile saline. The patient remained in stable condition. IMPRESSION: STATUS POST ULTRASOUND GUIDED PICC LINE PLACEMENT, READY FOR USE. THIS PROCEDURE WAS PER FORMED BY THE UNDERSIGNED.
[2021-06-04 17:41] LABS: Glucose,Whole Blood 80 mg/dL (75-99)
[2021-06-04] MEDS: ATORVASTATIN 20 MG TAB PO SCH (20:57)
[2021-06-04] MEDS: OLANZapine ODT 10 MG TAB PO SCH (20:58)
[2021-06-04] MEDS: DEXMEDETOMIDINE/0.9% NACL(PMX) 400 MCG in EMPTY BAG 1 BAG IV SCH (20:59)
--- NOTE | 2021-06-04 20:59 | P.PN ---
Subjective Progress Note Date: 06/04/21 Principal diagnosis: COVID-19 pneumonia Interval history: Patient is a 70-year-old male presented to the hospital with acute respiratory failure in this but have a evidence of multifocal pneumonia secondary to COVID-19. Patient did have worsening of his respiratory status requiring intubation on 05/19/2021, patient has been extubated on 05/24/2021 however the patient did have worsening of his respiratory status and inability intubated night of 05/24/2021, patient is status post trach and PEG on 05/26/2021 On today's evaluation that is 06/04/2021, The patient continues to be afebrile, the patient is hemodynamically stable, the patient FiO2 is stable at 40% no pu rulent secretions through the ET, patient has been tolerating his tube feeds and no diarrhea has been reported by the nursing staff, Objective - Vital Signs Vital signs: Vital Signs Temp 97.9 F 06/04/21 20:00 Pulse 70 06/04/21 20:00 Resp 21 06/04/21 20:00 BP 112/60 06/04/21 09:00 Pulse Ox 96 06/04/21 20:00 Intake & Output 06/04/21 06/04/21 06/05/21 06:59 18:59 06:59 Intake Total 920.774 838.02 108 Output Total 550 2260 110 Balance 370.774 -1421.98 -2 Weight 84.4 kg 84.4 kg Intake: IV 292.66 376.02 46 0.9 NaCl- 240 240 40 Amiodarone 450 mg In 16.66 Dextrose 5% in Water 250 ml @ 0.5 MG/MIN 16.667 mls/hr IV .Q15H VAZQUEZ Rx#: [id number] Meropenem 100.02 pressure bag 36 36 6 Intake, IV Titration 166.114 Amount Amiodarone 450 mg In 166.114 Dextrose 5% in Water 250 ml @ 0.5 MG/MIN 16.667 mls/hr IV .Q15H VAZQUEZ Rx#: [id number] Tube Feeding 372 372 62 Other 90 90 Output: Urine 550 2260 110 Other: Voiding Method Indwelling Catheter Indwelling Catheter ABP, PAP, CO, CI - Last Documented Arterial Blood Pressure 123/57 - Exam General description is an elderly male intubated on the vent Respiratory system:Unlabored breathing, decreased intensity in breath sounds. Heart S1, S2. Regular rate and rhythm. Abdomen soft, no tenderness. Extremities: No edema feet - Labs CBC & Chem 7: 06/04/21 04:20 06/04/21 09:46 Labs: Abnormal Lab Results - Last 24 Hours (Table) 06/04/21 06/04/21 06/04/21 Range/Units 04:20 04:20 05:49 RBC 3.05 L (4.30-5.90) m/uL Hgb 10.1 L (13.0-17.5) gm/dL Hct 29.0 L (39.0-53.0) % Lymphocytes # 0.2 L (1.0-4.8) k/uL ABG pH 7.47 H (7.35-7.45) ABG pCO2 48 H (35-45) mmHg ABG HCO3 35 H (21-25) mmol/L ABG Total CO2 36 H (19-24) mmol/L ABG O2 Saturation 98.2 H (94-97) % Potassium 3.1 L (3.5-5.1) mmol/L Carbon Dioxide 34 H (22-30) mmol/L BUN 45 H (9-20) mg/dL Creatinine 1.47 H (0.66-1.25) mg/dL Calcium 8.2 L (8.4-10.2) mg/dL Total Protein 4.6 L (6.3-8.2) g/dL Albumin 2.0 L (3.5-5.0) g/dL 06/04/21 Range/Units 09:46 RBC (4.30-5.90) m/uL Hgb (13.0-17.5) gm/dL Hct (39.0-53.0) % Lymphocytes # (1.0-4.8) k/uL ABG pH (7.35-7.45) ABG pCO2 (35-45) mmHg ABG HCO3 (21-25) mmol/L ABG Total CO2 (19-24) mmol/L ABG O2 Saturation (94-97) % Potassium 3.3 L (3.5-5.1) mmol/L Carbon Dioxide (22-30) mmol/L BUN (9-20) mg/dL Creatinine (0.66-1.25) mg/dL Calcium (8.4-10.2) mg/dL Total Protein (6.3-8.2) g/dL Albumin (3.5-5.0) g/dL Assessment and Plan (1) Aspiration pneumonia Current Visit: Yes Status: Acute Code(s): J69.0 - PNEUMONITIS DUE TO INHALATION OF FOOD AND VOMIT SNOMED Code(s): 592392514 (2) COVID-19 Current Visit: Yes Status: Acute Code(s): U07.1 - COVID-19 SNOMED Code(s): 704964512 Plan: 1-Patient with acute respiratory failure which is multifactorial in this patient with initial diagnosis of COVID-19 pneumonia in this patient did have significant worsening of his respiratory status requiring intubation and concern for possible aspiration pneumonitis, status post trach and peg, patient's sputum has been finalized with ESBL E. coli, for the patient is currently being treated with the meropenem and has been tolerating so far to continue and monitor his clinical course closely Time with Patient: Less than 30
[2021-06-04 23:40] LABS: Glucose,Whole Blood 92 mg/dL (75-99)
[2021-06-05] MEDS: POTASSIUM BICARBONATE/CIT AC 20 MEQ TABLET.EFF NG-TUBE SCH (00:22)
[2021-06-05] MEDS: HYDROmorphone 1 MG/ML 1 ML SYRINGE IVP PRN ×3 (03:05→19:51)
[2021-06-05] MEDS ORDERED: NOREPINEPHRINE 4 MG in SODIUM CHLORIDE 0.9% 250 ML IV SCH (03:30)
[2021-06-05] MEDS: ARTIFICIAL TEARS-HYPROMELLOSE DROPS 15 ML BTL BOTH EYES SCH ×2 (04:27→08:39)
[2021-06-05 04:59] LABS: Basophils % (A) 0 %; Eosinophils % (A) 0 %; HCT 29.8 % (39.0-53.0); HGB 9.8 gm/dL (13.0-17.5); Lymphocytes # (A) 0.3 k/uL (1.0-4.8); Lymphocytes % (A) 3 %; MCH 31.6 pg (25.0-35.0); MCV 95.8 fL (80.0-100.0); Mean Platelet Volume 7.3; Monocytes # (A) 0.2 k/uL (0-1.0); Monocytes % (A) 3 %; Neutrophils # (A) 7.9 k/uL (1.3-7.7); Neutrophils % (A) 94 %; Platelet Count 387 k/uL (150-450); RBC 3.11 m/uL (4.30-5.90); RDW 15.4 % (11.5-15.5); WBC 8.4 k/uL (3.8-10.6)
[2021-06-05 05:03] LABS: ABG Base Excess 15.5 mmol/L; ABG HCO3 39 mmol/L (21-25); ABG PCO2 49 mmHg (35-45); ABG PO2 72 mmHg (83-108); ABG TCO2 40 mmol/L (19-24)
[2021-06-05 05:08] LABS: Allen Test Performed? no
[2021-06-05] MEDS: DEXMEDETOMIDINE/0.9% NACL(PMX) 400 MCG in EMPTY BAG 1 BAG IV SCH (05:13)
[2021-06-05 05:27] LABS: Albumin 2.2 g/dL (3.5-5.0); Calcium 8.1 mg/dL (8.4-10.2); Potassium 3.7 mmol/L (3.5-5.1); Total Bilirubin 0.4 mg/dL (0.2-1.3); Total Protein 4.7 g/dL (6.3-8.2)
[2021-06-05] MEDS ORDERED: POTASSIUM BICARBONATE/CIT AC 20 MEQ TABLET.EFF NG-TUBE SCH (06:00)
--- NOTE | 2021-06-05 06:14 | XR ---
EXAMINATION TYPE: XR chest 1V portable DATE OF EXAM: 06/05/2021 CLINICAL HISTORY: Difficulty breathing and covid progress study. TECHNIQUE: Single AP portable semiupright view of the chest is obtained. COMPARISON: Chest x-ray from one day earlier and older studies. FINDINGS: Stable tracheostomy tube. Stable left-sided PICC line. Interval removal of right internal jugular central venous catheter. Background chronic emphysematous and parenchymal change with bilateral multifocal increased opacities and small bilateral pleural effusions redemonstrated. Cardiac silhouette size is stable and within n ormal limits . Osseous structures remain demineralized. Underlying scoliosis is redemonstrated. IMPRESSION: Chronic emphysematous and pulmonary fibrotic changes with persistent small bilateral pleu ral effusions and bilateral multifocal opacities consistent with covid-19 infection are redemonstrate d. No significant change from one day earlier.
[2021-06-05] MEDS: MEROPENEM 1 GM in SODIUM CHLORIDE 0.9% 100 ML IVPB SCH ×3 (06:24→23:05)
[2021-06-05] MEDS: MIDODRINE 5 MG TAB PO SCH ×3 (06:25→18:00)
[2021-06-05 06:38] LABS: Glucose,Whole Blood 106 mg/dL (75-99)
[2021-06-05] MEDS: HYDROCORTISONE SUCCINATE 100 MG/2 ML VIAL IV SCH ×2 (08:40→20:29)
[2021-06-05] MEDS: FUROSEMIDE 10 MG/ML 4 ML VIAL IV SCH (08:41)
[2021-06-05] MEDS: PANTOPRAZOLE 40 MG/10 ML VIAL IVP SCH (08:43)
[2021-06-05] MEDS: OLANZapine ODT 5 MG TAB PO SCH (08:48)
[2021-06-05] MEDS: AMIODARONE 200 MG TAB PO SCH ×2 (08:48→20:29)
[2021-06-05] MEDS: NYSTATIN 100,000 UNIT/ML SUSP 500,000 UNIT/5 ML CUP PO SCH ×4 (08:48→23:04)
[2021-06-05] MEDS: FOLIC ACID 1 MG TAB PO SCH (08:48)
[2021-06-05] MEDS: APIXABAN 5 MG TAB PO SCH ×2 (08:49→20:29)
--- NOTE | 2021-06-05 09:32 | P.PN ---
Subjective Progress Note Date: 06/05/21 Principal diagnosis: Acute COVID-19 pneumonia This is a 70-year-old male patient, brought into the emergency department by a caregiver. The patient is unable to volunteer any history. He has issues with dementia and mental health. In fact he is unable to communicate. He is currently in the hospital for COVID pneumonia. The patient initially went to [place] where he was seen in the [facility] for COVID 19 infection. He was discharged home. This is approximately 4 days ago. Following that, the caregiver sent the patient to our hospital as the patient's condition was getting worse and apparently continued to have worsening mentation. The patient was unable to communicate time of his admission. He was mumbling and unable to make full sentences or other words. He was restless in bed. At times agitated. At times screaming. He was quite uncooperative during the evaluation. No history of any head trauma. The patient apparently had a fall and he sustained a trauma to his neck area following the fall. This occurred at home in a bathtub. In the emergency department, the patient was found to be hypoxic with a pulse ox of 80% and the patient required oxygen. The patient is currently on oxygen at 10 L high flow. Initial CAT scan of the brain and the CAT scan of the C-spine showed no acute process. The patient was given 10 mg of Decadron in the emergency department regarding his COVID 19 pneumonia. Chest x-ray showed bilateral lower lobe airspace disease. Note that the pulmonary infiltrates were worse on the right compared to the leftand the infiltrate was rather asymmetric, which obviously raises concerns for an underlying pneumonia, aspiration and the patient was given a dose of Rocephin and Zithromax in the emergency department. His white cell count is at 6.4 with a hemoglobin of 12 and a platelet count of 130. Sodium was 155 this morning with a potassium level of 6.1, BUN is at 50 with a creatinine of 1.5, LFTs are normal, lactic acid level was at 1.9, pro calcitonin level is at 0.16, d-dimer is at 0.8 and the rest of the coagulation profile is within normal limits. The patient is currently on IV Decadron. On 05/19/2021 patient seen in follow-up in the intensive care unit, overnight his condition continued to deteriorate, and early this morning at 4:00 on 05/19/2021 patient had rapid response team called to the bedside for concern of worsening shortness of breath, and worsening hypoxia, patient was confused and in respiratory distress, he is not answering any questions, on 10 L of oxygen his pulse ox was 94%, however his mental status was significantly altered, patient was transferred to the intensive care unit for high likelihood of intubation, this morning she was intubated and placed on mechanical ventilator, with assist-control mode of ventilation with a rate of 30, tidal on was 300, FiO2 100% and PEEP of 5. Early in the morning his blood gases showed pO2 of 82, pCO2 of 80, and pH of 7.18, this was done and FiO2 of 70%. Post intubation blood gas showed a pO2 of 81, pCO2 of 63, and pH of 7.24, this was done and FiO2 of 50%. Patient was hypotensive following intubation, he was given 2 L of fluid boluses, and his maintenance IV fluid is D5W at 50 ML per hour which will be switched to normal saline, he is on norepinephrine at 0.14 mics per kilo per minute, Diprivan infusion at 50 mics per kilo per minute. He remains on prophylactic Lovenox 40 mg daily, and Decadron 6 mg daily. He remains on his home medications including Lipitor, Plavix, Depakote, iron supplementation, his antipsychotics, midodrine which patient have not been able to take related to his altered mental status. Patient was also suspected to be aspirating, and he was placed on Zosyn for empiric antibiotic coverage. Today's labs have been reviewed, his white blood cell count is 7.1, hemoglobin of 12.7, sodium is 153 and patient has been on D5W at a rate of 100 ML per hour, his oral intake has been extremely poor, potassium is 5.8, chloride is 124, BUN of 69, creatinine is 1.97. Patient's extremely cachectic, and frail. This morning patient had to be intubated and placed on mechanical ventilator, we will initiate tube feedings today, consult registered dietitian for tube feeding recommendation, patient will be fluid bolused, and stabilized hemodynamically. On 05/20/2021 patient seen in follow-up in intensive care unit. Yesterday he was intubated and placed on mechanical ventilator in view of worsening hypoxia and dyspnea. Today he remains sedated, and intubated on assist control mode of ventilation with a rate of 30, tidal volume is 325, FiO2 of 50% and PEEP of 10, this morning blood gases shows pO2 of 95, pCO2 of 70, and pH of 7.18. This was done on the above mentioned ventilator settings, today's chest x-ray shows some improvement of bibasilar infiltrates more so on the right, and possibility of developing small right pleural effusion. Patient is currently on a vasopressor support in the form of norepinephrine is 0.38 mics per kilo per minute which is about 24.7 mics per minute, he is on Diprivan at 50 mics per kilo per minute, and overnight he had episode of hypoglycemia and patient was placed on 10% dextrose at a rate of 100 ML per hour, patient was extremely dehydrated prior to his intubation, his had very poor oral intake. He was given 2 L fluid bolus yesterday, however still requiring vasopressor support, and case was discussed with nephrology who agreed that patient is still extremely intravascular volume depleted, and is recommending another 1 or 2 L fluid bolus today. Today's labs have been reviewed and his white blood cell count is 14.6, hemoglobin is 12.1, platelet count is 223, sodium is 148, potassium is 4.7, chloride is 121, CO2 is 23, BUN of 49 creatinine is 1.93, his LDH is 560, within normal limits, and CRP is 7.2, improving, his last proBNP from a couple days ago was 5790 however patient seems to be extremely dehydrated. His pro calcitonin levels were negative 2 at 0.16, and 0.12 however his chest x-ray findings suggest possibility of aspiration pneumonia, and patient was placed on Zosyn for possibility of aspiration. Sputum culture has been sent and pending, preliminary Gram stain showing few PMNs, rare budding yeast, final culture is pending, blood cultures are negative thus far. On 05/21/2021 patient seen in follow-up in intensive care unit, patient remains sedated, and intubated on assist control mode of ventilation with a rate of 36, tidal volume was 375, FiO2 of 40% and 5. The blood count shows pO2 of 71, pCO2 of 41, pH is 7.40, today's chest x-ray has been reviewed showing bilateral airspace disease with interstitial changes and prominent lung volumes indicative of underlying COPD. Vital signs have been stable overnight, patient is on norepinephrine 0.1 mics per kilo per minute, Diprivan is present, and D5W at 100 ML per hour, and plan an 70-20 ML per hour, he is on tube feedings with Nepro at 20 ML per hour and 10 of water flushes, he is in sinus mechanism with a rate of 82 BPM, patient has had fevers overnight with a temp of 100.5F. He is covered with Zosyn. His blood cultures have been negative, his sputum culture showed yeast species, culture is pending. Today's labs have been reviewed and his white blood cell count is 8.5, hemoglobin is 10.4, his sodium is improved and is down to 149, in follow-up sodium level came back at 151, patient remains on free water at 100 ML per hour, nephrology is following. Potassium is 4.0, chloride is 121, BUN is 40, creatinine is improved and is down to 1.58, his cortisol level 7, and this was on IV Decadron 6 mg daily, and patient remains on prophylactic dose Lovenox, Zosyn, yesterday he received an additional liter bolus in IV fluids. His urine output is in the order of 100-125 ML per hour. Overall his oxygenation and ventilation have significantly improved, and patient is maintaining stable O2 saturations on FiO2 of 40% and PEEP of 5, his peak Pressure is only 18, his plateau is 13. On 05/22/2021 patient seen in follow-up in intensive care unit, he remains intubated on mechanical ventilator, currently assist control mode of ventilation with a rate at 36, tidal 375, FiO2 40% and PEEP of 5, this was blood gas shows pO2 of 112, pCO2 40, pH of 7.40 and this was done and the above-mentioned vent settings, today's chest x-ray has been reviewed showing chronic emphysematous pulmonary fibrotic changes with moderate bilateral pleural effusions and susan ateral multifocal increased opacities consistent with COVID-19 infection. No significant change compared the day before. Patient's sedation has been placed on hold this morning. Patient is waking up, becoming slightly restless, however he is not following commands yet. He is on D5W at rate of 100 ML per hour, norepinephrine drip has been weaned off, patient continues on hydrocortisone 100 mg every 8 hours for his serum cortisol level of 7, his TSH level was 0.923, within normal limits. He's tolerating tube feedings he is receiving Nepro at 27 per hour with a goal of 27 standard water flushes, vital signs have been stable, no fever overnight. He did have a low-grade fever early this morning with a temp of 99.7F. His blood cultures have been negative, his sputum culture showed Romelia species. Patient remains on Zosyn for antibiotic coverage, on prophylactic Lovenox 40 mg daily. The rest of patient's labs have been reviewed, his white blood cell count is 6.0, hemoglobin of 9.6, sodium is improving and is down to 148, potassium is 4.0, chloride is 122, BUN is 26, creatinine is improving and is down to 1.55. On 05/23/2021 patient seen in follow-up in the intensive care unit. He remains intubated, on mechanical ventilator, currently on assist control mode of ventilation with a rate of 36, tidal volume 375, FiO2 of 40% and PEEP of 5. This morning's blood gas shows pO2 of 136, pCO2 of 40, and pH of 7.42, this was done and above-mentioned vent settings. Today's chest x-ray has been reviewed showing chronic emphysematous and pulmonary fibrotic changes with small bilate ral pleural effusions and bilateral multifocal opacities, without significant change compared to the prior study. Today's labs have been reviewed, white blood cell count is 5.5, hemoglobin is 8.9, sodium is 147, improving potassium is 3.5, chloride is 118, CO2 is 27, BUN 37, creatinine is 1.44. Patient is receiving D5W 1 50 ML per hour, nephrology is managing, he remains on hydrocortisone 100 mg every 8 hours, his been off vasopressor support for 48 hours. He has had no fever or chills. He remains on Zosyn. Sputum culture showed Romelia species, blood cultures have been negative. Neurologically patient has been off sedation for the past 24 hours. However patient is not following commands, although he is awake, at times he becomes restless, his been getting intermittent doses of when necessary on as-needed basis. We understand patient has underlying history of dementia however his baseline mental status is not known to us, his level of consciousness is certainly improved, however patient has not been able to follow any instructions. And for that reason patient has not been able to tolerate weaning trials, last night he had to be placed on assist-control mode of ventilation because he was extremely anxious, she did tolerate pressure support of 14 and IMV of 10 for a couple of hours, however became very agitated, and was placed back on assist control mode of ventilation. he is tolerating tube feedings. On 05/27/2021 patient seen in follow-up in the intensive care unit, patient remains intubated, and sedated on assist control mode of ventilation with a rate of 30, tidal 350, FiO2 of 50% and PEEP of 5, this morning's blood gas shows pO2 of 89, pCO2 45, pH is 7.3. Today's chest x-ray showing stable portable chest, bibasilar opacities, no significant change from prior exam, patient remains on Diprivan at 35 mics per kilo per minute, dopamine remains at 5 mics per kilo per minute, norepinephrine is at 1.5 mics per minute, D5W remains a 75 ML per hour, and tube feedings are currently on hold for recent trach and PEG placement by Dr. Mazariegos yesterday on 05/26/2021. He's had no acute events overnight. Today's labs have been reviewed, white blood cell count has increased and is currently 24.8, hemoglobin is 10.8, platelet count is 366, sodium is 140, potas sium is 3.2, chloride is 112, CO2 is 26, BUN is 18 creatinine is 1.14. Sputum culture from 2 days ago is showing gram-negative bacilli, final culture is still pending, patient currently remains on Zosyn, blood cultures are negative On 05/28/2021 patient seen in follow-up in intensive care unit, he remains trached to the ventilator, on assist control mode of ventilation with a rate of 30, tidal vital 350, FiO2 50% and PEEP of 5. He is sedated with Diprivan at 30 mics per kilo per minute, he is on 0.9 normal saline at a 20 ML per hour, D5W at 75 ML per hour, he is requiring small doses of norepinephrine and 5 mics per minute. Patient has been intermittently bradycardic with a heart rate in the low 40s, currently is in sinus mechanism with a rate of 60, his been experiencing intermittent hypotension, episodes of tachycardia. He is hypothermic this morning with a temp of 94.8F, he is on the warming blanket. Patient was found to have ESBL E. coli in his sputum culture, current antibiotic coverage is Avycaz, ID service is following. A new set of blood cultures will be sent, we'll send another cortisone level. Patient currently remains on hydrocortisone at 50 mg twice daily, however he may be experiencing worsening sepsis and septic shock. Today's labs have been reviewed, his white blood cell count is 16.1, hemoglobin is 9.7, d-dimer is 1.11, sodium is 140, potassium is 3.8, chloride is 111, CO2 is 26, BUN is 16 creatinine is 1.1 his LDH is 513, CRP is 15.8. His chest x-ray shows chronic emphysematous and pulmonary fibrotic changes with small right greater than left bilateral pleural effusions and bilateral mid to lower lung infiltrates. On 05/29/2021 patient seen in follow-up in intensive care unit, patient is trached to the ventilator, currently on assist control with a rate of 30, tidal vital 350, FiO2 40%, PEEP of 5, this. Blood gas shows pO2 of 94, pCO2 55, and pH of 7.31. Today's chest x-ray shows COPD with peripheral and basilar COVID infiltrates, similar to prior, slightly worsened. Patient has been afebrile overnight, no hyperthermia, he is hypotensive, requiring levo fed at 10 mics per minute. Yesterday we switched his antibiotic coverage from Avycaz to Meropenem in view of ESBL E. coli in his sputum. 2 more blood cultures have been sent, p ending at this time. Cortisol level yesterday was 18, hydrocortisone level was increased to 50 mg 3 times a day. Urine output is any order of 30-60 ML per hour. Today's labs have been reviewed, blood blood cell count is improving down to 15.6, hemoglobin is 10.2, sodium is 140, potassium is 4.3, chloride is 112, CO2 is 26, B1 is 16, creatinine is 1.23. LDH is 426 within normal limits, CRP is 12.5. On 06/02/2021 patient seen in follow-up in the intensive care unit. Patient is currently trached to the ventilator, he is on assist-control mode of ventilation with a rate of 30, tidal lungs 350, FiO2 of 40 percent, and PEEP of 5, this morning's blood gas shows pO2 of 98, pCO2 45, pH of 7.41. O2 saturation is 97% on those above-mentioned ventilator settings, peak pressures 41, plateau pres sure is 22. Today's chest x-ray showing chronic emphysematous and pulmonary fibrotic changes with persistent small bilateral pleural effusions and lower lung infiltrates and atelectasis. No significant change from the prior exam. Patient is currently on D5W at a rate of 75 ML per hour, he is requiring small dose of norepinephrine and propofol at 40 mics per kilo per minute. Patient was given a sedation holiday yesterday and per nursing reports patient was opening eyes spontaneously however not following any instructions. Patient was placed back on sedation at at bedtime. Today's blood work has been reviewed showing white blood cell count is 6.8, hemoglobin of 9.9, platelet count is 584, sodium is 138, potassium is 3.9, chloride is 110, B1 is 30 creatinine is 1.33. Patient's inflammatory markers from a few days ago show a normal LDH of 413, CRP of 5.5. Patient is currently being treated for ESBL E. coli pneumonia, and patient is covered with meropenem. Vital signs have been stable overnight, patient has been afebrile. Michelle catheter is in place, and urine output is in order of 100-150 ML per hour. Is tolerating tube feedings he is receiving Nepro 2.2 at 22 ML per hour with standard water flushes 30 mL every 4 hours. Patient has been on stress doses of hydrocortisone at 100 mg every 6 hours. He is also on midodrine 10 mg 3 times daily, he is on prophylactic dose Lovenox 40 mg once daily, and Protonix for GI prophylaxis, generally patient has diffuse edema in his trunk, upper and lower extremities, and overall he is in +27 kg net fluid balance since admission. Patient has had D5W infusion infusing at 75 ML per hour for hypernatremia and hypoglycemia since 05/21/2021. Patient is tolerating tube feedings there has been no recurrence of hypoglycemia and at this time D5W can be safely discontinued. On 06/03/2021 patient seen in follow-up in intensive care unit, yesterday he tolerated sedation holiday, he was placed on Precedex, he did not follow instruction however he was opening his eyes, he was comfortable without significant agitation and subsequently patient was placed on pressure-support with 12 and a CPAP of 5 and FiO2 of 40% and tolerated several hours of it. He was placed on small dose of Precedex to prevent him from stacking his breasts. In the evening he started becoming agitated, he was becoming hypoxic, he was difficult to ventilate, peak pressure alarm was alarming on the ventilator. The tracheostomy tube was adjusted, stat chest x-ray was obtained showing blunting of the costophrenic angles consistent with bilateral pleural effusions, mild pulmonary congestion, and tracheostomy tube which appear to be against the back wall of the trachea and this was thought to be the possible cause of the high peak pressure alarms. There was no evidence of pneumothorax on the chest x-ray. The tracheostomy tube was adjusted and subsequently patient was easier to ventilate, he was recently dated with the propofol and placed on Nimbex for the night. At the same time he went into A. fib with RVR, her own infusion at 1 mg/min after the initial bolus of 150 mg IV piggyback was administered, he currently remains in atrial fibrillation with a better controlled rate at 95 BPM. He is sedated paralyzed and trach to the ventilator on assist control mode of ventilation with a rate of 24, TV 300, FiO2 at 60% and PEEP of 5, this morning blood gas shows pO2 of 128, pCO2 of 74, pH 7.25. Subsequently FiO2 has been dropped down to 40% and patient is maintaining O2 saturations at around 100%, currently hemodynamically he still requiring a small dose of norepinephrine at 0.07 mics per kilo per minute, 0.9 normal saline area to 20 ML per hour and amiodarone drip at 1 mg/m as mentioned above. No other drips. She is tolerating tube feedings she is receiving Nepro at 31 with a goal of 31 and standard water flushes 30 mL every 4 hours. He was started on IV diuretics with Lasix 40 mg every 12 hours, and he has produced 5.9 L in the urine output last 24 hours and he is in -3.7 L net fluid balance over the last 24 hours. This morning's labs show white blood cell count of 11.8, hemoglobin of 10.9, sodium is 139, potassium is 3.4, chloride is 104, CO2 is 31, BUN is 40 creatinine is 1.42. Overall generally she looks less swollen with less tightness in his abdominal wall, and improved bilateral upper and lower extremity edema. On the 06/04/2021 patient seen in follow-up in the intensive care units. Patient today is awake, he is a bit restless, he's trying to talk around his tracheostomy, unable to squeeze hands on command, he did actually say good morning back to me. All sedation has been off since yesterday, patient is c urrently just on 0.9 normal saline 120 ML per hour, no other drips. Hemodynamically patient has been stable, he is in sinus mechanism, and she converted yesterday. No recurrent episodes of atrial fibrillation. His amiodarone infusion has been transitioned to oral amiodarone 200 mg twice daily. Yesterday patient was placed on pressure support trials very briefly, became very restless and had to be placed on assist-control mode of ventilation for the night, he is currently on assist control with a rate of 24, tidal vital 300 FiO2 of 40% and PEEP of 5. This morning's blood gas shows pO2 of 88, pCO2 48, and pH of 7.47. This was done on above-mentioned ventilator settings. Today's chest x-ray shows slight worsening in the moderate right and small left plural effusion. Yesterday patient's Lasix was held per nephrology. Today patient will receive 40 of Lasix this morning. Generally patient still appears to be quite fluid overloaded with generalized edema in his upper and lower extremities and his trunk. Patient has produced 2.4 L in urine output, and he is in -398 mL net fluid balance over the last 24 hours. Patient has been on meropenem for ESBL E. coli in the sputum is 05/28/2021. Vital signs have been stable, no fever or chills, hemodynamically has been stable. He remains on hydrocortisone 100 mg every 6 hours. He has been off vasopressors for the last almost 24 hour s. Today's lab 7 reviewed, with blood cell count is 8.2, hemoglobin is 10.1, platelet count is 425, sodium is 140, potassium is 3.1, chloride is 105, CO2 is 34, BUN is 45 and creatinine is 1.45. Serum potassium has been replaced per protocol and remains persistently low despite the replacements. His inflammatory markers are within the normal range today with LDH at 452, and CRP of 0.6. Patient has been receiving nutritional support with Nepro at 31 mL with a goal of 31 and standard water flushes, tolerating them well. On 06/05/2021 patient seen in follow-up in the intensive care unit, he is awake and alert, he has been trying to talk around the tracheostomy, at times his verbal responses seem appropriate, but patient is unable to squeeze with his hands at this time although midnight shift nurse said that he did squeeze her hands on command last night. Currently he is sitting up on the bed, and the ICU team is getting ready to get him up in a chair. He is profoundly weak, he is u nable to stand unassisted, and for that reason mechanical lift was used to get the patient up in the recliner. Physical therapy is at the bedside as well. Patient tolerated procedure quite well. He is currently resting comfortably in the recliner, he is on assist-control mode of ventilation with a rate of 24, tidal vital 300, FiO2 of 40% and PEEP of 5, this might blood gas shows pO2 of 72, pCO2 of 43, and pH of 7.50, this was done on the above-mentioned ventilator settings. Yesterday patient tolerated pressure-support 5 and CPAP of 5 trials from 9:30 AM until 10:30 PM. he was switched assist-control mode for the night. Today's chest x-ray shows chronic emphysematous and pulmonary fibrotic changes with persistent bilateral pleural effusions and bilateral multifocal opacities consistent with his recent history of COVID-19 pneumonia. There is no significant change compared to yesterday's exam. Currently patient's remains on a once daily dose of IV Lasix 40 mg, he is in negative fluid balance of 1.2 L negative net fluid balance. Patient has produced 2.9 L and urine output in the last 24 hours. Hemodynamically stable, he is not requiring any vasopressor support, he has 0.9 normal saline at rate of 20 ML per hour, all sedatives have been discontinued, patient at times had been receiving intermittent doses of IV Dilaudid for generalized discomfort. Single episode of low-grade fever in the last 24 hours, with a temp of 99.3F, patient remains on meropenem for ESBL E. coli in the sputum, ID service is following, today's labs have been reviewed showing white blood cell count of 8.4, hemoglobin is 9.8, serum sodium is 141, potassium is 3.7, chloride is 103, CO2 is 37, BUN is 47, creatinine is 1.46., LFTs are within normal limits, his LDH today is 534 in normal range, CRP is 2.0. He remains on hydrocortisone, but that the dose to 50 mg every 8 hours yesterday. Patient has maintained stable blood pressure and heart rate, and there has been no recurrence of atrial fibrillation. Objective - Vital Signs Vital signs: Vital Signs Temp 99.3 F 06/05/21 08:00 Pulse 74 06/05/21 08:00 Resp 22 06/05/21 08:00 BP 119/55 06/05/21 05:00 Pulse Ox 98 06/05/21 08:00 Intake & Output 06/04/21 06/05/21 06/05/21 18:59 06:59 18:59 Intake Total 838.02 834 Output Total 2260 685 Balance -1421.98 149 Weight 84.4 kg 81 kg Intake: IV 376.02 273 0.9 NaCl- 240 240 Meropenem 100.02 pressure bag 36 33 Tube Feeding 372 471 Other 90 90 Output: Urine 2260 685 Other: Voiding Method Indwelling Catheter Indwelling Catheter ABP, PAP, CO, CI - Last Documented Arterial Blood Pressure 126/56 - Exam GENERAL EXAM: Frail and generally edematous 70-year-old white male, trached to the ventilator on assist control mode of ventilation with a rate of 24, tidal volume 300, FiO2 40% and PEEP of 5, comfortable in no apparent distress. Patient was just placed in recliner by [facility] HEAD: Normocephalic/atraumatic. EYES: Normal reaction of pupils, equal size. Conjunctiva pink, sclera white. NOSE: Clear with pink turbinates. THROAT: No erythema or exudates. NECK: No masses, no JVD, no thyroid enlargement, no adenopathy. Midline tracheostomy #7, bivona trach in place, clean dry and intact, and patient is connected to the ventilator with assist control mode of ventilation CHEST: No chest wall deformity. Symmetrical expansion. LUNGS: Equal air entry with diminished breath sounds and crackles CVS: Regular rate and rhythm, normal S1 and S2, no gallops, no murmurs, no rubs ABDOMEN: Soft, nontender. No hepatosplenomegaly, normal bowel sounds, no guarding or rigidity. PEG tube is in place EXTREMITIES: No clubbing, with severe generalized swelling noted in upper and lower extremities no cyanosis, and truncal edema, 2+ pulses and upper and lower extremities. MUSCULOSKELETAL: Muscle strength and tone normal. SPINE: No scoliosis or deformity SKIN: No rashes. His and has various areas of decubitus ulcers, stage II with his ulcers on buttocks, bilateral hips, left elbow, and deep tissue injury on his bilateral heels CENTRAL NERVOUS SYSTEM: Sedated, intubated No focal deficits, tone is normal in all 4 extremities. - Labs CBC & Chem 7: 06/05/21 04:38 06/05/21 04:38 Labs: Abnormal Lab Results - Last 24 Hours (Table) 06/04/21 06/04/21 06/05/21 Range/Units 09:46 21:40 04:38 RBC 3.11 L (4.30-5.90) m/uL Hgb 9.8 L (13.0-17.5) gm/dL Hct 29.8 L (39.0-53.0) % Neutrophils # 7.9 H (1.3-7.7) k/uL Lymphocytes # 0.3 L (1.0-4.8) k/uL ABG pH (7.35-7.45) ABG pCO2 (35-45) mmHg ABG pO2 (83-108) mmHg ABG HCO3 (21-25) mmol/L ABG Total CO2 (19-24) mmol/L Potassium 3.3 L 3.3 L (3.5-5.1) mmol/L Carbon Dioxide (22-30) mmol/L BUN (9-20) mg/dL Creatinine (0.66-1.25) mg/dL Glucose (74-99) mg/dL POC Glucose (mg/dL) (75-99) mg/dL Calcium (8.4-10.2) mg/dL C-Reactive Protein (<1.0) mg/dL Total Protein (6.3-8.2) g/dL Albumin (3.5-5.0) g/dL 06/05/21 06/05/21 06/05/21 Range/Units 04:38 05:00 06:36 RBC (4.30-5.90) m/uL Hgb (13.0-17.5) gm/dL Hct (39.0-53.0) % Neutrophils # (1.3-7.7) k/uL Lymphocytes # (1.0-4.8) k/uL ABG pH 7.50 H (7.35-7.45) ABG pCO2 49 H (35-45) mmHg ABG pO2 72 L (83-108) mmHg ABG HCO3 39 H (21-25) mmol/L ABG Total CO2 40 H (19-24) mmol/L Potassium (3.5-5.1) mmol/L Carbon Dioxide 37 H (22-30) mmol/L BUN 47 H (9-20) mg/dL Creatinine 1.46 H (0.66-1.25) mg/dL Glucose 104 H (74-99) mg/dL POC Glucose (mg/dL) 106 H (75-99) mg/dL Calcium 8.1 L (8.4-10.2) mg/dL C-Reactive Protein 2.0 H (<1.0) mg/dL Total Protein 4.7 L (6.3-8.2) g/dL Albumin 2.2 L (3.5-5.0) g/dL Assessment and Plan Plan: Assessment: #1. Acute hypoxic respiratory failure related to acute COVID-19 pneumonia, and possibility of bacterial infection/aspiration related pneumonia is not entirely excluded, sputum culture showed ESBL E. coli, and patient will be covered with meropenem. ID service is on the case. Patient was brought into the emergency department on 05/17/2021 per EMS, patient is a poor historian, reportedly has history of bipolar disease and dementia. Came in primarily for evaluation of altered mental status. Transferred from [place] emergency department for COVID-19 related pneumonia. The patient was taken to the hospital in [place] 4 days prior to this admission and the symptom onset was probably even prior to that. Exact onset of symptoms is not known. Patient was transferred to the intensive care unit on 05/19/2021 for worsening hypoxia, and hypercapnia, and altered mental status, and was intubated on 05/19/2021 on assist control mode of ventilation with a rate of 30, tidal on his 350, FiO2 40% and PEEP of 5. Patient had tolerated pressure support trials, and was extubated on 05/24/2021 however failed and was reintubated on 05/25/2021. On 06/04/2021 patient is awake, he is mouthing words around his trach, he is able to give some simple responses, does not consistently follow commands yet, generally he is quite weak. Tolerated 13 hours of pressure-support 5 and CPAP 5 today, with FiO2 of 40% on 06/04/2021 #2. Hypotension, related to dehydration, and possibility of septic shock. Patient remains on norepinephrine for vasopressor support, serum cortisol level was only 7, patient was placed on stress doses of hydrocortisone which is now being weaned, now that he has remained hemodynamically stable for last 48 hours #2. Altered mental status with worsened from baseline, improving #3. History of dementia and schizoaffective disorder #4. Acute dehydration and hypernatremia, on the D5W at 100 ML per hour, resolved #5. Chronic stage 3 kidney disease #6. COPD #7. History of coronary artery disease #8. GERD/reflux #9. Hyperlipidemia, improving #10. Acute kidney injury related to ATN, and dehydration, improved #11. Hypokalemia #12. Hypoglcemia, resolved, patient is tolerating tube feedings. #13. Multiple areas of decubitus ulcer including deep tissue injury on bilateral heels, stage II on buttocks, stage II on bilateral hips and stage I on left elbow, present on admission #14. A. fib with RVR on 06/03/2021, patient was started on amiodarone and Eliquis, currently in sinus mechanism Plan: Today's blood gases, labs, CXR and labs reviewed Chest x-ray showing Stable bilateral pleural effusions, right greater than left Continue once dose of Lasix patient tolerated 12-13 hours on pressure-support 5 and CPAP of 5, Keep off sedation, IV Dilaudid for general discomfort, use judiciously Eliquis can be resumed Continue oral Amio Hemodynamically stable Continue weaning hydrocortisone, cut down to 50 mg q12 hours Increase K-Lyte to twice daily replacement Continue Meropenem per ID service Vitals stable Patient is up in chair today Profoundly weak, [facility] Continue nutritional support we may place the patient on 40% trach collar today, back on AC setting for the night Consult social work for initiation of LTAC placement process We'll continue to follow his progress I performed a history & physical examination of the patient and discussed their management with my nurse practitioner, Veronica Chiu. I reviewed the nurse practitioner's note and agree with the documented findings and plan of care. Lung sounds are positive for diminished breath sounds throughout the lung watson. The findings and the impression was discussed with the patient. I atte st to the documentation by the nurse practitioner. Time with Patient: Greater than 30
[2021-06-05] MEDS: ALBUTEROL HFA INHALER INHALATION SCH ×4 (09:34→19:51)
--- NOTE | 2021-06-05 09:35 | P.PN ---
Subjective Progress Note Date: 06/04/21 This is a 70-year-old male who was recently admitted with change in mental status and fall and also shortness of breath and acute COVID-19 pneumonia and being closely monitored. Patient was continued on high flow oxygen although respiratory status continued to deteriorate and an A team was called. Patient was brought to the ICU for close monitoring and x-ray showed some bilateral lower lobe pneumonia which appears unchanged compared to recent exam with no obvious heart failure. Patient was placed on mechanical vent and intubated and sedated and is being closely monitored. Multiple medical consultations including pulmonary and infectious disease following closely. 05/20/2021 Patient is seen in follow-up activity is to be closely monitored in the ICU. Blood pressure and heart rate has been extremely variable and patient is maintained on D10 in water along with norepinephrine and will continue. Pulmonary and infectious disease following closely. Patient continues with worsening kidney functions nephrology consulted and patient is being given a liter bolus for hypotension and repeat sodium level ordered. Patient also continues on Zosyn and ID following closely. Patient continues with low blood sugar readings as well and we'll continue D10 and close glucose monitoring. Chest x-ray shows some improvement in bibasilar infiltrates more so on the right and possibly developing small right pleural effusion. 05/21/2021 Patient is seen and evaluated this morning continues to be in the ICU with multiple medical consultations following. Patient is continued on IV antibiotics with ID following. Cultures continue to be negative and WBC is 8.5. Patient did have low grade temp today. Patient continues on mechanical vent and sedated. Chest xray similar to previous exam and will continue to monitor. Prognosis remains guarded. Patient also continued on norepinephrine. 05/22/2021 Patient is seen and evaluated today continues to be on mechanical vent with an FiO2 of 40% PEEP is 5. Patient continuing with weaning trials and assist mode on mechanical vent although patient continues to not follow commands per nursing staff. Per pulmonary street sweeper continued attempts at weaning. Chest x-ray shows chronic emphysematous changes and pulmonary fibrosis with moderate bilater al pleural effusions and bilateral multifocal increased opacification consistent with COVID-19 infection are all redemonstrated with no significant change from yesterday. Sputum culture finalized showing Romelia species not albicans, glabrata along with Romelia albicans and infectious disease is following. Patient continues on IV antibiotics in the form of Zosyn. Patient is currently off norepinephrine and receiving Solu-Cortef along with valproic acid and Depakote. Patient is continued on Lovenox for DVT prophylaxis. Patient also continues on D5 in water at 100 mL per hour. Blood gases are improving and pulmonary discussing possible extubation. 05/23/2021 Patient is seen this morning continues to be on mechanical vent with an FiO2 of 40 and a PEEP of 5 with continued weaning trials. Patient is off sedation and does open eyes to verbal stimuli although does not follow commands. Chest x-ray today shows chronic emphysematous and pulmonary fibrotic changes with small size bilateral pleural effusions and bilateral multifocal increased opacification is consistent with COVID-19 infection are again redemonstrated with no significant change from previous. General surgery consulted for possible trach and peg tube placement. 05/24/2021 Patient with spontaneous eye opening during assessment, eyes are tracking, however when asked to squeeze fingers patient unable to do so and did not wiggle toes when asked. He was not responsive to commands or yes or no questions. Continues in the ICU on 5L NC with an oxygen saturation of 91%. He is afebrile, Heart rate is in the 40-50's dropping into the mid 30's. Unclear whether patient is in a heart block, nurse reports HR of 30's seems to be when he is sleeping. EKG will try to be obtained when he is in the 30's. Respirations are 23, blood pressure 135/55. Chest xray today remains unchanged. Possible trach and PEG tube wednesday if needed. Labs today show WBC 7.0, hgb 9.1, D-dimer 0.86, sodium 142, potassium 3.6, BUN 33, creatinine 1.28, glucose in the 130s, calcium 7.8, CRP 1.7, total protein 4.6, albumin 2.0. Multiple consultations. Prognosis remains guarded. 05/25/2021 Throughout the evening patient desaturated and his blood pressure was dropping while on the levophed and his heart rate was increasing and then once he was off the levophed his heart rate was increasing and his blood pressure was dropping. Patient was reintubated with an Fi02 of 60%. Blood gases at the time showed a pCO2 of greater than 120, pH 6.97, pO2 170, total oxygen saturation 98. Oxygen saturations 98%, he is afebrile, pulse rate 43 appears sinus bradycardia on EKG that was obtained midmorning. Blood pressure 135/75. Blood gases have improved with a pH now 7.30, pCO2 57, pO2 57, HCO3 28, total CO2 30 and O2 saturation 87.5. Sodium 140, potassium 3.7, chloride 109, CO2 28, BUN 27, creatinine 1.36, blood glucose 120, calcium 8.1, AST 27, ALT 19, LDH 585, CRP 1.9. Chest x-ray today shows as based consolidation atelectasis and volume loss in the right hemithorax which is slightly compared to exam yesterday. Has pulmonary interstitial edema on the left side without change. Plan is for a PEG, trach tomorrow. Cardiology was consulted and started patient on a dopamine infusion. Patient is on D5 water at 75 mL per hour, levophed infusing, propofol, on IV Zosyn and IV valproic acid. Labs initial white count 13, hemoglobin 10.7, d- dimer 1.84. 05/26/2021 Patient is seen today in follow up in the ICU being closely monitored. Multiple medical consultations following along with general surgery and is scheduled for peg and trach placement today. Tube feedings on hold. Patient continues on mechanical vent and FI02 is 50% peep is 5. Chest xray today shows COPD right greater than left with covid infiltrates and aeration improving now on the right. Potassium is 3.2 and being replaced. Lovenox on hold for the procedure as well. 05/27/2021 Patient is seen in follow-up in the ICU with multiple medical consultations following. Patient is status post PEG and trach placement and will be initiating tube feeds once cleared by surgery. Sputum culture finalized showing E. coli with ESBL and resistance and infectious disease is following. Patient was continued on dopamine along with Levophed and attempting to wean per nursing staff. Patient also continues in D5 water with nephrology following closely. Patient is on IV Zosyn along with nystatin and will continue. Chest x-ray today shows stable portable chest with no evidence of pneumothorax and no change in bibasilar opacities. Patient continues on propofol and FiO2 is 50% with a PEEP of 5. Potassium found a 3.2 and replaced and will repeat labs. 05/28/2021 Patient is seen in follow-up this morning continues to be in the ICU with multiple medical consultations following. Patient is currently continued on mechanical vent via tracheostomy and FiO2 is 40% with a PEEP of 5. Patient is status post peg and trach and surgery following. Patient resumed on lovenox and tube feedings. Tolerating tube feedings thus far. Patient continues on levophed and off dopamine. Patient was on Midodrine and will resume along with his olanzapine and continue to monitor closely. Patient is maintained on Meropenem and ID following closely. Patient also continues on solu-cortef and d5 in water with nephrology following as well. 05/29/2021 Patient is seen and evaluated in follow-up today continues to be in the ICU under close observation with multiple medical consultations following. Patient continues on mechanical ventilation via tracheostomy and FiO2 is 40% and PEEP is 5. Chest xray today shows COPD with continued peripheral and basilar covid infiltrates, similar to slightly worsened from yesterday. Patient continues with sedation holidays to assess mentation although continues to not follow commands appropriately. Patient continues on Levophed as well. IV merrem to continue. 05/30/2021 Patient is seen this morning in the ICU with multiple medical consultations following. Patient continues on vent with an FI02 of 40% and peep is 5. Chest x-ray today shows a curvilinear edge that is now seen at the bilateral apices that could be projectional artifact and recommended follow-up with improved positioning to exclude trace of new biapical pneumothoraces, COPD, increase in small to moderate bilateral pleural effusions with continued patchy mid and low er lung Covid infiltrates. Patient continues on sedation and staff air tactical officer working on weaning. Patient will open eyes although not follow any commands. Continues on low dose levophed 05/31/2021 Patient is in the MICU. Admitted to hospital due to acute COVID-19 pneumonia. Currently on mechanical ventilator via tracheostomy tube. Assist-control with respiratory rate 30, tidal volume 350, FiO2 50% and PEEP of 5. Remains on propofol and Nimbex. Currently on D5 water at 75 cc/h. Patient is off pressor support. Patient is being continued on antibiotics in the form of meropenem. Sputum cultures growing Romelia and most recently E. coli. ID is on board. Chest x- ray showed bilateral lung infiltrates with suggestion of mild improvement in the left midlung zone. Laboratory data showed WBC 10.6 hemoglobin 9.3 and platelets 579 Sodium 139 potassium 4.0 chloride 101 bicarb is 28 BUN 23 and creatinine 1.46 albumin 2.0 Patient is on hydrocortisone her milligrams IV every 6 hourly and also on mido drine. 06/01/2021 Patient is in MICU. Remains on ventilator via tracheostomy tube. FiO2 40% PEEP of 5. Not requiring any pressor support. Patient is being tried on IV hydrocortisone and midodrine. Currently on tube feedings. Chest x-ray showed bilateral opacities in the some interstitial infiltrates in the midlung zones. Upper lungs remain well aerated. No significant change. No pneumothorax. Patient sputum cultures showed E. coli. Repeat cultures have been negative patient remains on antibiotics in the form of meropenem. ID and pulmonary is on board. Laboratory data showed WC 5.6 hemoglobin 9.3 and platelets 462 sodium 137 potassium 4.0 chloride 110 bicarb is 28 BUN 27 creatinine 1.42 and blood sugar 146 ID nephrology and pulmonary is on board. 06/02/2021 Patient continues to be closely monitored in the ICU with multiple medical consultations following. Patient continues on ventilation support via tracheostomy and FiO2 is 35% and PEEP of 5. Patient attempting weaning trials of sedation and not tolerating well her nursing staff. Chest xray today shows chronic emphsyematous and pulmonary fibrotic changes with persistent small bilateral pleural effusions and lower lung infiltrates and or atelectasis all redemonstrated. Patient had been on IV fluids and will discontinue. Patient will be started on IV lasix daily. Patient tolerating tube feeds and no new episodes of hypoglycemia. Creatinine is 1.33 and will repeat labs and monitor closely. Continued attempts at weaning and slowly weaning off levophed. 06/03/2021 Patient is seen and evaluated continues to be closely monitored in the ICU continued on ventilation support via tracheostomy and FiO2 was increased to 50% with a PEEP of 5. Per nursing staff patient not tolerating weaning off sedation and requiring propofol. Chest x-ray from last night shows pleural effusions with basilar pulmonary infiltrates and mild congestion with mild heart failure it is possible with no change compared to earlier exam from the morning. Patient continues on IV Lasix 40 mg daily. Patient also continues on Meropenem with infectious disease following closely. Patient apparently not tolerating last night and heart rate irregular and on IV amiodarone and cardiology is following. Patient with significant scrotal and penis swelling along with generalized edema of the extremities noted as well. 06/04/2021 Patient is in use to be in the MICU being closely monitored. Patient continues on mechanical ventilation via tracheostomy and FiO2 is 40% with a PEEP of 5 and patient is currently off sedation. Patient is opening eyes and moving although not following commands appropriately per nursing staff. Chest x-ray shows COPD and borderline cardiomegaly with slight worsening in small to moderate layering right and small layering left pleural effusions with adjacent atelectasis and/or consolidation. Pulmonary street sweeper following closely along with infectious disease and general surgery. Patient continues on meropenem with infectious disease following along with Solu-Cortef and is currently off norepinephrine. Recommend electrolyte replacement per protocol and will repeat labs along with chest x-ray. Review of systems: Unable to obtain as patient is mechanically intubated and sedated Labs: WBC is 8.2, hemoglobin is 10.1 and platelets are 425, sodium is 140, potassium 3.3, BUN 45, creatinine 1.47, calcium 8.2, magnesium 1.9, LDH 452, CRP 0.6 Active Medications Acetaminophen (Acetaminophen Tab 325 Mg Tab) 650 mg PO Q6HR PRN PRN Reason: Mild Pain or Fever > 100.5 Last Admin: 05/18/21 23:16 Dose: 650 mg Documented by: Albuterol Sulfate (Albuterol Hfa Inhaler) 2 puff INHALATION RT-QID [facility] Last Admin: 06/03/21 11:53 Dose: 2 puff Documented by: Amiodarone HCl (Amiodarone 200 Mg Tab) 200 mg PO BID [facility] Apixaban (Apixaban 5 Mg Tab) 5 mg PO BID [facility]; Protocol Last Admin: 06/03/21 09:56 Dose: 5 mg Documented by: Artificial Tears (Artificial Tears-Hypromellose Drops 15 Ml Btl) 2 drops BOTH EYES Q4HR [facility] Last Admin: 06/03/21 09:58 Dose: 2 drops Documented by: Atorvastatin Calcium (Atorvastatin 20 Mg Tab) 20 mg PO [facility] Last Admin: 06/02/21 21:28 Dose: 20 mg Documented by: Ferrous Sulfate (Ferrous Sulfate 325 Mg Tab) 325 mg PO DAILY [facility] Last Admin: 06/03/21 09:56 Dose: 325 mg Documented by: Folic Acid (Folic Acid 1 Mg Tab) 1 mg PO DAILY [facility] Last Admin: 06/03/21 09:56 Dose: 1 mg Documented by: Furosemide (Furosemide 10 Mg/Ml 4 Ml Vial) 40 mg IV DAILY [facility] Last Admin: 06/03/21 09:57 Dose: 40 mg Documented by: Hydrocortisone Sodium Succinate (Hydrocortisone Succinate 100 Mg/2 Ml Vial) 100 mg IV Q6HR [facility] Last Admin: 06/03/21 05:21 Dose: 100 mg Documented by: Hydromorphone HCl (Hydromorphone 1 Mg/Ml 1 Ml Syringe) 1 mg IVP Q2HR PRN PRN Reason: Pain Last Admin: 06/02/21 10:45 Dose: 1 mg Documented by: Norepinephrine Bitartrate 4 mg (/ Sodium Chloride) 254 mls @ 13.697 mls/hr IV .[id number] [facility]; Protocol Last Titration: 06/03/21 11:08 Dose: 0.03 mcg/kg/min, 8.218 mls/hr Documented by: Propofol 1,000 mg/ IV Solution 100 mls @ 0 mls/hr IV .Q0M [facility]; Protocol Last Titration: 06/03/21 13:00 Dose: 5 mcg/kg/min, 2.58 mls/hr Documented by: Meropenem 1 gm/ Sodium (Chloride) 100 mls @ 33.3 mls/hr IVPB Q8H [facility]; Protocol Last Admin: 06/03/21 05:21 Dose: 33.3 mls/hr Documented by: Dexmedetomidine HCl 400 mcg/ (IV Solution) 100 mls @ 4.45 mls/hr IV .[id number] [facility]; Protocol Last Admin: 06/03/21 10:21 Dose: Not Given Documented by: Amiodarone HCl 450 mg/ (Dextrose/Water) 250 mls @ 16.667 mls/hr IV .Q15H [facility]; Protocol Stop: 06/04/21 05:29 Last Admin: 06/03/21 11:02 Dose: 0.5 mg/min, 16.667 mls/hr Documented by: Midodrine (Midodrine 5 Mg Tab) 10 mg PO AC-TID [facility] Last Admin: 06/03/21 05:21 Dose: 10 mg Documented by: Miscellaneous Information (Potassium Replacement Protocol 1 Each Misc) 1 each MISCELLANE DAILY PRN; Protocol PRN Reason: Per Protocol Nystatin (Nystatin 100,000 Unit/Ml Susp 500,000 Unit/5 Ml Cup) 500,000 unit PO QID [facility] Last Admin: 06/03/21 09:56 Dose: 500,000 unit Documented by: Olanzapine (Olanzapine Odt 5 Mg Tab) 5 mg PO DAILY [facility] Last Admin: 06/03/21 09:56 Dose: 5 mg Documented by: Olanzapine (Olanzapine Odt 10 Mg Tab) 20 mg PO HS [facility] Last Admin: 06/02/21 21:28 Dose: 20 mg Documented by: Pantoprazole Sodium (Pantoprazole 40 Mg/10 Ml Vial) 40 mg IVP DAILY [facility] Last Admin: 06/03/21 09:57 Dose: 40 mg Documented by: Physical Exam: Gen: this is a 70-year-old male currently sedated and intubated. 40% mechanical ventilation with a PEEP of 5 HEENT: Head is atraumatic, normocephalic. Pupils equal, round. Sclerae is anicteric. NECK: Supple. No JVD. No lymphadenopathy. No thyromegaly. LUNGS: Diminished breath sounds bilaterally with coarse rhonchi and crackles noted. No intercostal retractions. HEART: S1, S2 are muffled ABDOMEN: Soft. Bowel sounds are present. No masses. No tenderness. Continued testicular and penis swelling. EXTREMITIES: No pedal edema. No calf tenderness. NEUROLOGICAL: Patient is currently intubated and sedated Assessment: Acute COVID-19 infection with acute COVID-19 bilateral interstitial pneumonia, right more than left with acute hypoxic respiratory failure, now requiring mechanical ventilation with extubation on 05/24/2021, and re-intubation on 05/25/2021 status post peg tube and tracheostomy placement, FiO2 40% with a PEEP of 5 Acute kidney injury secondary to acute tubular necrosis from septic shock Chronic kidney disease stage III secondary to nephrosclerosis Hypoglycemia, improved Change in mental status, metabolic encephalopathy, multifactorial Falling, gait dysfunction Anemia, normocytic anemia of undetermined significance Hypernatremia from poor oral intake Hyperkalemia secondary to acute kidney injury, resolved Elevated d-dimer history of coronary artery disease history of chronic obstructive pulmonary disease Gastroesophageal reflux disease history of bipolar, schizoaffective disorder and schizophrenia History of nicotine dependence Severe protein calorie malnutrition with a BMI of 19.1 No code Plan: Recommend to continue with current medications and follow along closely with multiple medical consultations. Prognosis remains extremely guarded with multiple complex medical issues noted. Patient is status post peg and trach placement and continues on mechanical vent. Continued attempts of sedation holiday to assess mentation and weaning. Currentl off propofol at the moment. Not tolerating extremely well. Has Dilaudid as well. tube feedings being tolerated. Recommend continue with current medications and patient has been maintained on IV antibiotics with infectious disease following.. Patient will continue on merrem . Chest x-ray reviewed as mentioned above. Recommend repeat labs in the morning along with chest xray. IV fluids discontinued and giving IV lasix. Significant scrotal and penis swelling noted. Nephrology following as well. Again due to multiple complex medical issues prognosis is quite guarded. Objective - Vital Signs Vital signs: Vital Signs Temp 36.6 F L 06/04/21 04:00 Pulse 63 06/04/21 07:00 Resp 24 06/04/21 07:00 BP 121/60 06/04/21 07:00 Pulse Ox 100 06/04/21 07:00 Intake & Output 06/03/21 06/04/21 06/04/21 18:59 06:59 18:59 Intake Total 1105.810 920.774 54 Output Total 1875 550 60 Balance -769.190 370.774 -6 Weight 84.4 kg Intake: IV 386.28 292.66 23 0.9 NaCl- 220 240 20 Amiodarone 450 mg In 133.28 16.66 Dextrose 5% in Water 250 ml @ 0.5 MG/MIN 16.667 mls/hr IV .Q15H [facility] Rx#: [id number] pressure bag 33 36 3 Intake, IV Titration 319.530 166.114 Amount Amiodarone 450 mg In 166.114 Dextrose 5% in Water 250 ml @ 0.5 MG/MIN 16.667 mls/hr IV .Q15H [facility] Rx#: [id number] Cisatracurium 200 mg In 109.826 Sodium Chloride 0.9% 180 ml @ 1 MCG/KG/MIN 5.34 mls/hr IV .Q24H [facility] Rx#: [id number] Norepinephrine 4 mg In 123.776 Sodium Chloride 0.9% 250 ml @ 0.05 MCG/KG/MIN 13. 697 mls/hr IV .[id number] [facility] Rx#:[id number] propofoL 1,000 mg In 85.928 Empty Bag 1 bag @ Titrate IV .Q0M [facility] Rx#: [id number] Tube Feeding 310 372 31 Other 90 90 Output: Urine 1875 550 60 Other: Voiding Method Indwelling Catheter Indwelling Catheter ABP, PAP, CO, CI - Last Documented Arterial Blood Pressure 126/59 - Labs CBC & Chem 7: 06/05/21 04:38 06/05/21 04:38 Labs: Abnormal Lab Results - Last 24 Hours (Table) 06/03/21 06/04/21 06/04/21 Range/Units 11:27 04:20 04:20 RBC 3.05 L (4.30-5.90) m/uL Hgb 10.1 L (13.0-17.5) gm/dL Hct 29.0 L (39.0-53.0) % Lymphocytes # 0.2 L (1.0-4.8) k/uL ABG pH (7.35-7.45) ABG pCO2 (35-45) mmHg ABG HCO3 (21-25) mmol/L ABG Total CO2 (19-24) mmol/L ABG O2 Saturation (94-97) % Potassium 3.1 L (3.5-5.1) mmol/L Carbon Dioxide 34 H (22-30) mmol/L BUN 45 H (9-20) mg/dL Creatinine 1.47 H (0.66-1.25) mg/dL POC Glucose (mg/dL) 151 H (75-99) mg/dL Calcium 8.2 L (8.4-10.2) mg/dL Total Protein 4.6 L (6.3-8.2) g/dL Albumin 2.0 L (3.5-5.0) g/dL 06/04/21 Range/Units 05:49 RBC (4.30-5.90) m/uL Hgb (13.0-17.5) gm/dL Hct (39.0-53.0) % Lymphocytes # (1.0-4.8) k/uL ABG pH 7.47 H (7.35-7.45) ABG pCO2 48 H (35-45) mmHg ABG HCO3 35 H (21-25) mmol/L ABG Total CO2 36 H (19-24) mmol/L ABG O2 Saturation 98.2 H (94-97) % Potassium (3.5-5.1) mmol/L Carbon Dioxide (22-30) mmol/L BUN (9-20) mg/dL Creatinine (0.66-1.25) mg/dL POC Glucose (mg/dL) (75-99) mg/dL Calcium (8.4-10.2) mg/dL Total Protein (6.3-8.2) g/dL Albumin (3.5-5.0) g/dL Microbiology - Last 24 Hours (Table) 05/28/21 10:28 Blood Culture - Final Blood No Growth after 144 hours
[2021-06-05] MEDS: FERROUS SULFATE ORAL ELIXIR 300 MG/5 ML CUP PO SCH (11:00)
[2021-06-05 11:59] LABS: Glucose,Whole Blood 101 mg/dL (75-99)
--- NOTE | 2021-06-05 13:37 | P.DS ---
Providers Date of admission: 05/17/21 16:48 Expected date of discharge: 06/05/21 Attending physician: Milena Samaniego Consults: 05/17/21 16:48 Consult Physician Routine Consulting Provider: Michael Albert Consult Reason/Comments: covid Do you want consulting provider notified?: Yes 05/17/21 19:26 Consult Physician Routine Consulting Provider: Zofia Yoder Consult Reason/Comments: coivd. remdesivir? Do you want consulting provider notified?: Yes 05/19/21 16:11 Consult Physician Urgent Consulting Provider: Ismael Arias Consult Reason/Comments: hyperkalemia, hypernatremia, ARF, covid Do you want consulting provider notified?: Yes 05/23/21 13:29 Consult Physician Routine Consulting Provider: Cristobal Moscoso Consult Reason/Comments: COVID 19, resp failure, trach and peg Do you want consulting provider notified?: Yes Primary care physician: Stated None Hospital Course: Final diagnosis Acute COVID-19 infection with acute COVID-19 bilateral interstitial pneumonia, right more than left with acute hypoxic respiratory failure, now requiring mechanical ventilation with extubation on 05/24/2021, and re-intubation on 05/25/2021 status post peg tube and tracheostomy placement, FiO2 40% with a PEEP of 5 Acute kidney injury secondary to acute tubular necrosis from septic shock Chronic kidney disease stage III secondary to nephrosclerosis Hypoglycemia, improved Change in mental status, metabolic encephalopathy, multifactorial Falling, gait dysfunction Anemia, normocytic anemia of undetermined significance Hypernatremia from poor oral intake Hyperkalemia secondary to acute kidney injury, resolved Elevated d-dimer history of coronary artery disease history of chronic obstructive pulmonary disease Gastroesophageal reflux disease history of bipolar, schizoaffective disorder and schizophrenia History of nicotine dependence Severe protein calorie malnutrition with a BMI of 19.1 No code Discharge disposition Patient is being discharged in a stable condition with guarded prognosis to [facility]. Patient will follow-up with primary care provider in the outpatient setting upon discharge. Patient is to continue with IV meropenem every 8 hours for the next 5 days. Total time taken is greater than 35 minutes. Hospital course This is a 70-year-old male who was recently admitted with changes in mental status and fall and worsening shortness of breath along with acute COVID-19 pneumonia and was being closely monitored. Patient respiratory status continued to deteriorate and was initially on BiPAP briefly and was transferred to the ICU and placed on mechanical ventilation and intubation with sedation. Multiple medical consultations were following closely throughout hospitalization. Patient had prolonged hospitalization with multiple attempts at weaning although unsuccessful from the vent and had tracheostomy and PEG tube placed. Patient is currently on FiO2 of 40% with a flow rate of 10 trach collar. Patient's blood cultures remain negative although sputum cultures grew Romelia species not albicans along with Romelia albicans and E. coli and is maintained on IV meropenem with infectious disease following closely. ID recommends continuing IV meropenem for another 5 days. Patient is also maintained on Solu-Cortef and IV Lasix and will transition to oral and is tolerating tube feedings. Patient has significant swelling of the scrotum and testes with slight improvement. Social work following on placement and patient has [facility] and will be discharged today. Patient is off all sedation and occasionally receiving Dilaudid for agitation what seems to help. Patient to continue with tube feedings as mentioned below. Continue with local wound care to the sacral area. Patient's CODE STATUS was addressed during hospitalization and patient is no code. Physical Exam: Gen: this is a 70-year-old male currently sitting up in the chair awake and attempts to respond appropriately although continues with confusion. 40% mechanical ventilation with a PEEP of 5 HEENT: Head is atraumatic, normocephalic. Pupils equal, round. Sclerae is anicteric. NECK: Supple. No JVD. No lymphadenopathy. No thyromegaly. LUNGS: Diminished breath sounds bilaterally with coarse rhonchi and crackles noted. No intercostal retractions. HEART: S1, S2 are muffled ABDOMEN: Soft. Bowel sounds are present. No masses. No tenderness. Continued testicular and penis swelling. EXTREMITIES: No pedal edema. No calf tenderness. NEUROLOGICAL: Patient is currently intubated and sedated Please refer to medication reconciliation sheet for a list of medications. Patient Condition at Discharge: Critical Plan - Discharge Summary Discharge Rx Participant: No New Discharge Prescriptions: New Amiodarone [Cordarone] 200 mg PO BID tab Hydrocortisone [Cortef] 20 mg PO BID #60 tablet Furosemide [Lasix] 40 mg PO DAILY #30 tablet Meropenem [Merrem] 1 gm IVPB Q8H 5 Days #15 each Nystatin 100,000 Unit/ml Susp [Mycostatin Oral Susp] 500,000 unit PO QID ml Albuterol Inhaler [Ventolin Hfa Inhaler] 2 puff INHALATION RT-QID gm OLANZapine ODT [ZyPREXA Zydis] 5 mg PO DAILY tab Apixaban [Eliquis] 5 mg PO BID tab Ferrous Sulfate Oral Elixir [Feosol Liquid] 300 mg PO DAILY ml Folic Acid 1 mg PO DAILY tab Potassium Bicarbonate/Cit AC [K-Lyte] 20 meq PO DAILY #60 tab Pantoprazole Sodium [Protonix] 40 mg PO DAILY #30 tab Acetaminophen Tab [Tylenol] 650 mg PO Q6HR PRN tab PRN Reason: Mild Pain Or Fever > 100.5 OLANZapine ODT [ZyPREXA Zydis] 20 mg PO HS tab Continue Midodrine HCl [ProAmatine] 10 mg PO TID Atorvastatin Calcium [Lipitor] 20 mg PO HS Discontinued Clopidogrel [Plavix] 75 mg PO DAILY Divalproex ER [Depakote ER] 500 mg PO BID Folic Acid 1 mg PO DAILY #30 tab OLANZapine [OLANZapine Odt] 20 mg PO HS predniSONE [Deltasone] 20 mg PO DAILY OLANZapine [OLANZapine Odt] 5 mg PO DAILY Ferrous Sulfate [Iron (65 MG Elemental)] 325 mg PO DAILY Discharge Medication List Atorvastatin Calcium [Lipitor] 20 mg PO HS 05/29/20 [History] Midodrine HCl [ProAmatine] 10 mg PO TID 05/29/20 [History] Acetaminophen Tab [Tylenol] 650 mg PO Q6HR PRN tab 06/05/21 [Rx] Albuterol Inhaler [Ventolin Hfa Inhaler] 2 puff INHALATION RT-QID gm 06/05/21 [Rx] Amiodarone [Cordarone] 200 mg PO BID tab 06/05/21 [Rx] Apixaban [Eliquis] 5 mg PO BID tab 06/05/21 [Rx] Ferrous Sulfate Oral Elixir [Feosol Liquid] 300 mg PO DAILY ml 06/05/21 [Rx] Folic Acid 1 mg PO DAILY tab 06/05/21 [Rx] Furosemide [Lasix] 40 mg PO DAILY #30 tablet 06/05/21 [Rx] Hydrocortisone [Cortef] 20 mg PO BID #60 tablet 06/05/21 [Rx] Meropenem [Merrem] 1 gm IVPB Q8H 5 Days #15 each 06/05/21 [Rx] Nystatin 100,000 Unit/ml Susp [Mycostatin Oral Susp] 500,000 unit PO QID ml 06/05/21 [Rx] OLANZapine ODT [ZyPREXA Zydis] 5 mg PO DAILY tab 06/05/21 [Rx] OLANZapine ODT [ZyPREXA Zydis] 20 mg PO HS tab 06/05/21 [Rx] Pantoprazole Sodium [Protonix] 40 mg PO DAILY #30 tab 06/05/21 [Rx] Potassium Bicarbonate/Cit AC [K-Lyte] 20 meq PO DAILY #60 tab 06/05/21 [Rx] Follow up Appointment(s)/Referral(s): None,Stated [Primary Care Provider] - 1-2 days Activity/Diet/Wound Care/Special Instructions: [facility] Activity as tolerated Patient is to be continued on IV meropenem every 8 hours for the next 5 days Patient is maintained on tube feedings in the form of nephro with continuous infusion and goal rate is 40 and a receive 960 mL per day with continued free water boluses of 30 mL every 4 hours and monitor closely of residuals Recommend close monitoring of labs daily Patient is continued on trach collar with an FiO2 of 40% and flow rate is 10 Discharge Disposition: [facility]
--- NOTE | 2021-06-05 13:47 | P.PN ---
Subjective Progress Note Date: 06/05/21 CHIEF COMPLAINT: COVID-19 pneumonia HISTORY OF PRESENT ILLNESS: Patient is in the ICU. They're placing him on trach collar today. Patient sitting up in chair. Patient is status post PEG tube and tracheostomy placement on 05/26/21. Patient has had no issues with his PEG tube. They're adjusting trach tube sites today. [facility]. PHYSICAL EXAM: VITAL SIGNS: Reviewed. GENERAL: no acute distress. HEENT: Moist buccal mucosa. Head is atraumatic, normocephalic. Tracheostomy site clean dry and intact ABDOMEN: Soft. Nondistended. PEG tube site clean dry and intact ASSESSMENT: 1. Acute hypoxic respiratory failure secondary to COVID-19 pneumonia with mecha nical ventilation and difficulty weaning from the vent status post tracheostomy placement 2. Severe protein calorie malnutrition status post PEG tube placement PLAN: -Continue tube feedings -Continue supportive care -[facility] Physician Hat Cutter note has been reviewed by physician. Signing provider agrees with the documented findings, assessment, and plan of care. Objective - Vital Signs Vital signs: Vital Signs Temp 99.3 F 06/05/21 08:00 Pulse 74 06/05/21 08:00 Resp 22 06/05/21 08:00 BP 119/55 06/05/21 05:00 Pulse Ox 98 06/05/21 09:36 Intake & Output 06/04/21 06/05/21 06/05/21 18:59 06:59 18:59 Intake Total 838.02 834 306 Output Total 2260 685 180 Balance -1421.98 149 126 Weight 84.4 kg 81 kg Intake: IV 376.02 273 106 0.9 NaCl- 240 240 Meropenem 100.02 100 pressure bag 36 33 6 Tube Feeding 372 471 80 Other 90 90 120 Output: Urine 2260 685 180 Other: Voiding Method Indwelling Catheter Indwelling Catheter ABP, PAP, CO, CI - Last Documented Arterial Blood Pressure 126/56 - Labs CBC & Chem 7: 06/05/21 04:38 06/05/21 04:38 Labs: Abnormal Lab Results - Last 24 Hours (Table) 06/04/21 06/05/21 06/05/21 Range/Units 21:40 04:38 04:38 RBC 3.11 L (4.30-5.90) m/uL Hgb 9.8 L (13.0-17.5) gm/dL Hct 29.8 L (39.0-53.0) % Neutrophils # 7.9 H (1.3-7.7) k/uL Lymphocytes # 0.3 L (1.0-4.8) k/uL ABG pH (7.35-7.45) ABG pCO2 (35-45) mmHg ABG pO2 (83-108) mmHg ABG HCO3 (21-25) mmol/L ABG Total CO2 (19-24) mmol/L Potassium 3.3 L (3.5-5.1) mmol/L Carbon Dioxide 37 H (22-30) mmol/L BUN 47 H (9-20) mg/dL Creatinine 1.46 H (0.66-1.25) mg/dL Glucose 104 H (74-99) mg/dL POC Glucose (mg/dL) (75-99) mg/dL Calcium 8.1 L (8.4-10.2) mg/dL C-Reactive Protein 2.0 H (<1.0) mg/dL Total Protein 4.7 L (6.3-8.2) g/dL Albumin 2.2 L (3.5-5.0) g/dL 06/05/21 06/05/21 06/05/21 Range/Units 05:00 06:36 11:57 RBC (4.30-5.90) m/uL Hgb (13.0-17.5) gm/dL Hct (39.0-53.0) % Neutrophils # (1.3-7.7) k/uL Lymphocytes # (1.0-4.8) k/uL ABG pH 7.50 H (7.35-7.45) ABG pCO2 49 H (35-45) mmHg ABG pO2 72 L (83-108) mmHg ABG HCO3 39 H (21-25) mmol/L ABG Total CO2 40 H (19-24) mmol/L Potassium (3.5-5.1) mmol/L Carbon Dioxide (22-30) mmol/L BUN (9-20) mg/dL Creatinine (0.66-1.25) mg/dL Glucose (74-99) mg/dL POC Glucose (mg/dL) 106 H 101 H (75-99) mg/dL Calcium (8.4-10.2) mg/dL C-Reactive Protein (<1.0) mg/dL Total Protein (6.3-8.2) g/dL Albumin (3.5-5.0) g/dL
[2021-06-05 17:45] LABS: Glucose,Whole Blood 94 mg/dL (75-99)
[2021-06-05] MEDS: ATORVASTATIN 20 MG TAB PO SCH (20:29)
[2021-06-05] MEDS: OLANZapine ODT 10 MG TAB PO SCH (20:29)
[2021-06-05] MEDS: POTASSIUM BICARBONATE/CIT AC 20 MEQ TABLET.EFF PO SCH (20:30)
[2021-06-05 23:55] LABS: Glucose,Whole Blood 108 mg/dL (75-99)
[2021-06-06 05:23] LABS: Glucose,Whole Blood 110 mg/dL (75-99)
[2021-06-06] MEDS: MIDODRINE 5 MG TAB PO SCH ×3 (06:01→23:23)
[2021-06-06] MEDS: ACETAMINOPHEN TAB 325 MG TAB PO PRN (06:01)
[2021-06-06 06:02] LABS: Basophils % (A) 0 %; Eosinophils # (A) 0.1 k/uL (0-0.7); Eosinophils % (A) 1 %; HCT 28.6 % (39.0-53.0); HGB 9.5 gm/dL (13.0-17.5); Lymphocytes # (A) 0.4 k/uL (1.0-4.8); Lymphocytes % (A) 7 %; MCHC 33.2 g/dL (31.0-37.0); MCV 96.3 fL (80.0-100.0); Mean Platelet Volume 7.2; Monocytes # (A) 0.2 k/uL (0-1.0); Monocytes % (A) 4 %; Neutrophils # (A) 5.1 k/uL (1.3-7.7); Neutrophils % (A) 88 %; Platelet Count 274 k/uL (150-450); RBC 2.97 m/uL (4.30-5.90); RDW 15.3 % (11.5-15.5); WBC 5.8 k/uL (3.8-10.6)
[2021-06-06] MEDS: MEROPENEM 1 GM in SODIUM CHLORIDE 0.9% 100 ML IVPB SCH ×3 (06:14→23:26)
[2021-06-06 06:18] LABS: C Reactive Protein 2.2 mg/dL (<1.0); Calcium 7.8 mg/dL (8.4-10.2); Potassium 3.6 mmol/L (3.5-5.1); Total Bilirubin 0.4 mg/dL (0.2-1.3); Total Protein 4.4 g/dL (6.3-8.2)
[2021-06-06] MEDS ORDERED: POTASSIUM BICARBONATE/CIT AC 20 MEQ TABLET.EFF NG-TUBE SCH (07:00)
[2021-06-06] MEDS: ALBUTEROL HFA INHALER INHALATION SCH (07:59)
[2021-06-06] MEDS: NYSTATIN 100,000 UNIT/ML SUSP 500,000 UNIT/5 ML CUP PO SCH ×4 (08:09→23:58)
[2021-06-06] MEDS: AMIODARONE 200 MG TAB PO SCH ×2 (08:09→23:23)
[2021-06-06] MEDS: APIXABAN 5 MG TAB PO SCH ×2 (08:09→23:23)
[2021-06-06] MEDS: POTASSIUM BICARBONATE/CIT AC 20 MEQ TABLET.EFF PO SCH ×2 (08:09→23:25)
[2021-06-06] MEDS: FOLIC ACID 1 MG TAB PO SCH (08:09)
[2021-06-06] MEDS: FERROUS SULFATE ORAL ELIXIR 300 MG/5 ML CUP PO SCH (08:09)
[2021-06-06] MEDS: HYDROCORTISONE SUCCINATE 100 MG/2 ML VIAL IV SCH (08:09)
[2021-06-06] MEDS: OLANZapine ODT 5 MG TAB PO SCH (08:10)
[2021-06-06] MEDS: PANTOPRAZOLE 40 MG/10 ML VIAL IVP SCH (08:10)
[2021-06-06] MEDS: FUROSEMIDE 10 MG/ML 4 ML VIAL IV SCH (08:10)
--- NOTE | 2021-06-06 08:32 | XR ---
EXAMINATION TYPE: XR chest 1V portable DATE OF EXAM: 06/06/2021 Comparison: 06/05/2021 Clinical History: 70-year-old male COVID Findings: Tracheostomy cannula. Left PICC tip at the lower SVC. Heart border on enlarged. Hyperinflation. Perip heral interstitial densities and focal bibasilar opacities persist without significant change. Suspec t small effusions. Impression: Similar COPD with mid and lower lung infiltrates and suspected small effusions.
[2021-06-06] MEDS: HYDROmorphone 1 MG/ML 1 ML SYRINGE IVP PRN ×2 (08:40→14:57)
[2021-06-06] MEDS: HYDROCORTISONE 20 MG TAB PO SCH (08:41)
--- NOTE | 2021-06-06 08:53 | P.PN ---
Subjective Progress Note Date: 06/06/21 Principal diagnosis: Acute COVID-19 pneumonia This is a 70-year-old male patient, brought into the emergency department by a caregiver. The patient is unable to volunteer any history. He has issues with dementia and mental health. In fact he is unable to communicate. He is currently in the hospital for COVID pneumonia. The patient initially went to [place] where he was seen in the [facility] for COVID 19 infection. He was discharged home. This is approximately 4 days ago. Following that, the caregiver sent the patient to our hospital as the patient's condition was getting worse and apparently continued to have worsening mentation. The patient was unable to communicate time of his admission. He was mumbling and unable to make full sentences or other words. He was restless in bed. At times agitated. At times screaming. He was quite uncooperative during the evaluation. No history of any head trauma. The patient apparently had a fall and he sustained a trauma to his neck area following the fall. This occurred at home in a bathtub. In the emergency department, the patient was found to be hypoxic with a pulse ox of 80% and the patient required oxygen. The patient is currently on oxygen at 10 L high flow. Initial CAT scan of the brain and the CAT scan of the C-spine showed no acute process. The patient was given 10 mg of Decadron in the emergency department regarding his COVID 19 pneumonia. Chest x-ray showed bilateral lower lobe airspace disease. Note that the pulmonary infiltrates were worse on the right compared to the leftand the infiltrate was rather asymmetric, which obviously raises concerns for an underlying pneumonia, aspiration and the patient was given a dose of Rocephin and Zithromax in the emergency department. His white cell count is at 6.4 with a hemoglobin of 12 and a platelet count of 130. Sodium was 155 this morning with a potassium level of 6.1, BUN is at 50 with a creatinine of 1.5, LFTs are normal, lactic acid level was at 1.9, pro calcitonin level is at 0.16, d-dimer is at 0.8 and the rest of the coagulation profile is within normal limits. The patient is currently on IV Decadron. On 05/19/2021 patient seen in follow-up in the intensive care unit, overnight his condition continued to deteriorate, and early this morning at 4:00 on 05/19/2021 patient had rapid response team called to the bedside for concern of worsening shortness of breath, and worsening hypoxia, patient was confused and in respiratory distress, he is not answering any questions, on 10 L of oxygen his pulse ox was 94%, however his mental status was significantly altered, patient was transferred to the intensive care unit for high likelihood of intubation, this morning she was intubated and placed on mechanical ventilator, with assist-control mode of ventilation with a rate of 30, tidal on was 300, FiO2 100% and PEEP of 5. Early in the morning his blood gases showed pO2 of 82, pCO2 of 80, and pH of 7.18, this was done and FiO2 of 70%. Post intubation blood gas showed a pO2 of 81, pCO2 of 63, and pH of 7.24, this was done and FiO2 of 50%. Patient was hypotensive following intubation, he was given 2 L of fluid boluses, and his maintenance IV fluid is D5W at 50 ML per hour which will be switched to normal saline, he is on norepinephrine at 0.14 mics per kilo per minute, Diprivan infusion at 50 mics per kilo per minute. He remains on prophylactic Lovenox 40 mg daily, and Decadron 6 mg daily. He remains on his home medications including Lipitor, Plavix, Depakote, iron supplementation, his antipsychotics, midodrine which patient have not been able to take related to his altered mental status. Patient was also suspected to be aspirating, and he was placed on Zosyn for empiric antibiotic coverage. Today's labs have been reviewed, his white blood cell count is 7.1, hemoglobin of 12.7, sodium is 153 and patient has been on D5W at a rate of 100 ML per hour, his oral intake has been extremely poor, potassium is 5.8, chloride is 124, BUN of 69, creatinine is 1.97. Patient's extremely cachectic, and frail. This morning patient had to be intubated and placed on mechanical ventilator, we will initiate tube feedings today, consult registered dietitian for tube feeding recommendation, patient will be fluid bolused, and stabilized hemodynamically. On 05/20/2021 patient seen in follow-up in intensive care unit. Yesterday he was intubated and placed on mechanical ventilator in view of worsening hypoxia and dyspnea. Today he remains sedated, and intubated on assist control mode of ventilation with a rate of 30, tidal volume is 325, FiO2 of 50% and PEEP of 10, this morning blood gases shows pO2 of 95, pCO2 of 70, and pH of 7.18. This was done on the above mentioned ventilator settings, today's chest x-ray shows some improvement of bibasilar infiltrates more so on the right, and possibility of developing small right pleural effusion. Patient is currently on a vasopressor support in the form of norepinephrine is 0.38 mics per kilo per minute which is about 24.7 mics per minute, he is on Diprivan at 50 mics per kilo per minute, and overnight he had episode of hypoglycemia and patient was placed on 10% dextrose at a rate of 100 ML per hour, patient was extremely dehydrated prior to his intubation, his had very poor oral intake. He was given 2 L fluid bolus yesterday, however still requiring vasopressor support, and case was discussed with nephrology who agreed that patient is still extremely intravascular volume depleted, and is recommending another 1 or 2 L fluid bolus today. Today's labs have been reviewed and his white blood cell count is 14.6, hemoglobin is 12.1, platelet count is 223, sodium is 148, potassium is 4.7, chloride is 121, CO2 is 23, BUN of 49 creatinine is 1.93, his LDH is 560, within normal limits, and CRP is 7.2, improving, his last proBNP from a couple days ago was 5790 however patient seems to be extremely dehydrated. His pro calcitonin levels were negative 2 at 0.16, and 0.12 however his chest x-ray findings suggest possibility of aspiration pneumonia, and patient was placed on Zosyn for possibility of aspiration. Sputum culture has been sent and pending, preliminary Gram stain showing few PMNs, rare budding yeast, final culture is pending, blood cultures are negative thus far. On 05/21/2021 patient seen in follow-up in intensive care unit, patient remains sedated, and intubated on assist control mode of ventilation with a rate of 36, tidal volume was 375, FiO2 of 40% and 5. The blood count shows pO2 of 71, pCO2 of 41, pH is 7.40, today's chest x-ray has been reviewed showing bilateral airspace disease with interstitial changes and prominent lung volumes indicative of underlying COPD. Vital signs have been stable overnight, patient is on norepinephrine 0.1 mics per kilo per minute, Diprivan is present, and D5W at 100 ML per hour, and plan an 70-20 ML per hour, he is on tube feedings with Nepro at 20 ML per hour and 10 of water flushes, he is in sinus mechanism with a rate of 82 BPM, patient has had fevers overnight with a temp of 100.5F. He is covered with Zosyn. His blood cultures have been negative, his sputum culture showed yeast species, culture is pending. Today's labs have been reviewed and his white blood cell count is 8.5, hemoglobin is 10.4, his sodium is improved and is down to 149, in follow-up sodium level came back at 151, patient remains on free water at 100 ML per hour, nephrology is following. Potassium is 4.0, chloride is 121, BUN is 40, creatinine is improved and is down to 1.58, his cortisol level 7, and this was on IV Decadron 6 mg daily, and patient remains on prophylactic dose Lovenox, Zosyn, yesterday he received an additional liter bolus in IV fluids. His urine output is in the order of 100-125 ML per hour. Overall his oxygenation and ventilation have significantly improved, and patient is maintaining stable O2 saturations on FiO2 of 40% and PEEP of 5, his peak Pressure is only 18, his plateau is 13. On 05/22/2021 patient seen in follow-up in intensive care unit, he remains intubated on mechanical ventilator, currently assist control mode of ventilation with a rate at 36, tidal 375, FiO2 40% and PEEP of 5, this was blood gas shows pO2 of 112, pCO2 40, pH of 7.40 and this was done and the above-mentioned vent settings, today's chest x-ray has been reviewed showing chronic emphysematous pulmonary fibrotic changes with moderate bilateral pleural effusions and susan ateral multifocal increased opacities consistent with COVID-19 infection. No significant change compared the day before. Patient's sedation has been placed on hold this morning. Patient is waking up, becoming slightly restless, however he is not following commands yet. He is on D5W at rate of 100 ML per hour, norepinephrine drip has been weaned off, patient continues on hydrocortisone 100 mg every 8 hours for his serum cortisol level of 7, his TSH level was 0.923, within normal limits. He's tolerating tube feedings he is receiving Nepro at 27 per hour with a goal of 27 standard water flushes, vital signs have been stable, no fever overnight. He did have a low-grade fever early this morning with a temp of 99.7F. His blood cultures have been negative, his sputum culture showed Romelia species. Patient remains on Zosyn for antibiotic coverage, on prophylactic Lovenox 40 mg daily. The rest of patient's labs have been reviewed, his white blood cell count is 6.0, hemoglobin of 9.6, sodium is improving and is down to 148, potassium is 4.0, chloride is 122, BUN is 26, creatinine is improving and is down to 1.55. On 05/23/2021 patient seen in follow-up in the intensive care unit. He remains intubated, on mechanical ventilator, currently on assist control mode of ventilation with a rate of 36, tidal volume 375, FiO2 of 40% and PEEP of 5. This morning's blood gas shows pO2 of 136, pCO2 of 40, and pH of 7.42, this was done and above-mentioned vent settings. Today's chest x-ray has been reviewed showing chronic emphysematous and pulmonary fibrotic changes with small bilate ral pleural effusions and bilateral multifocal opacities, without significant change compared to the prior study. Today's labs have been reviewed, white blood cell count is 5.5, hemoglobin is 8.9, sodium is 147, improving potassium is 3.5, chloride is 118, CO2 is 27, BUN 37, creatinine is 1.44. Patient is receiving D5W 1 50 ML per hour, nephrology is managing, he remains on hydrocortisone 100 mg every 8 hours, his been off vasopressor support for 48 hours. He has had no fever or chills. He remains on Zosyn. Sputum culture showed Romelia species, blood cultures have been negative. Neurologically patient has been off sedation for the past 24 hours. However patient is not following commands, although he is awake, at times he becomes restless, his been getting intermittent doses of when necessary on as-needed basis. We understand patient has underlying history of dementia however his baseline mental status is not known to us, his level of consciousness is certainly improved, however patient has not been able to follow any instructions. And for that reason patient has not been able to tolerate weaning trials, last night he had to be placed on assist-control mode of ventilation because he was extremely anxious, she did tolerate pressure support of 14 and IMV of 10 for a couple of hours, however became very agitated, and was placed back on assist control mode of ventilation. he is tolerating tube feedings. On 05/27/2021 patient seen in follow-up in the intensive care unit, patient remains intubated, and sedated on assist control mode of ventilation with a rate of 30, tidal 350, FiO2 of 50% and PEEP of 5, this morning's blood gas shows pO2 of 89, pCO2 45, pH is 7.3. Today's chest x-ray showing stable portable chest, bibasilar opacities, no significant change from prior exam, patient remains on Diprivan at 35 mics per kilo per minute, dopamine remains at 5 mics per kilo per minute, norepinephrine is at 1.5 mics per minute, D5W remains a 75 ML per hour, and tube feedings are currently on hold for recent trach and PEG placement by Dr. Mazariegos yesterday on 05/26/2021. He's had no acute events overnight. Today's labs have been reviewed, white blood cell count has increased and is currently 24.8, hemoglobin is 10.8, platelet count is 366, sodium is 140, potas sium is 3.2, chloride is 112, CO2 is 26, BUN is 18 creatinine is 1.14. Sputum culture from 2 days ago is showing gram-negative bacilli, final culture is still pending, patient currently remains on Zosyn, blood cultures are negative On 05/28/2021 patient seen in follow-up in intensive care unit, he remains trached to the ventilator, on assist control mode of ventilation with a rate of 30, tidal vital 350, FiO2 50% and PEEP of 5. He is sedated with Diprivan at 30 mics per kilo per minute, he is on 0.9 normal saline at a 20 ML per hour, D5W at 75 ML per hour, he is requiring small doses of norepinephrine and 5 mics per minute. Patient has been intermittently bradycardic with a heart rate in the low 40s, currently is in sinus mechanism with a rate of 60, his been experiencing intermittent hypotension, episodes of tachycardia. He is hypothermic this morning with a temp of 94.8F, he is on the warming blanket. Patient was found to have ESBL E. coli in his sputum culture, current antibiotic coverage is Avycaz, ID service is following. A new set of blood cultures will be sent, we'll send another cortisone level. Patient currently remains on hydrocortisone at 50 mg twice daily, however he may be experiencing worsening sepsis and septic shock. Today's labs have been reviewed, his white blood cell count is 16.1, hemoglobin is 9.7, d-dimer is 1.11, sodium is 140, potassium is 3.8, chloride is 111, CO2 is 26, BUN is 16 creatinine is 1.1 his LDH is 513, CRP is 15.8. His chest x-ray shows chronic emphysematous and pulmonary fibrotic changes with small right greater than left bilateral pleural effusions and bilateral mid to lower lung infiltrates. On 05/29/2021 patient seen in follow-up in intensive care unit, patient is trached to the ventilator, currently on assist control with a rate of 30, tidal vital 350, FiO2 40%, PEEP of 5, this. Blood gas shows pO2 of 94, pCO2 55, and pH of 7.31. Today's chest x-ray shows COPD with peripheral and basilar COVID infiltrates, similar to prior, slightly worsened. Patient has been afebrile overnight, no hyperthermia, he is hypotensive, requiring levo fed at 10 mics per minute. Yesterday we switched his antibiotic coverage from Avycaz to Meropenem in view of ESBL E. coli in his sputum. 2 more blood cultures have been sent, p ending at this time. Cortisol level yesterday was 18, hydrocortisone level was increased to 50 mg 3 times a day. Urine output is any order of 30-60 ML per hour. Today's labs have been reviewed, blood blood cell count is improving down to 15.6, hemoglobin is 10.2, sodium is 140, potassium is 4.3, chloride is 112, CO2 is 26, B1 is 16, creatinine is 1.23. LDH is 426 within normal limits, CRP is 12.5. On 06/02/2021 patient seen in follow-up in the intensive care unit. Patient is currently trached to the ventilator, he is on assist-control mode of ventilation with a rate of 30, tidal lungs 350, FiO2 of 40 percent, and PEEP of 5, this morning's blood gas shows pO2 of 98, pCO2 45, pH of 7.41. O2 saturation is 97% on those above-mentioned ventilator settings, peak pressures 41, plateau pres sure is 22. Today's chest x-ray showing chronic emphysematous and pulmonary fibrotic changes with persistent small bilateral pleural effusions and lower lung infiltrates and atelectasis. No significant change from the prior exam. Patient is currently on D5W at a rate of 75 ML per hour, he is requiring small dose of norepinephrine and propofol at 40 mics per kilo per minute. Patient was given a sedation holiday yesterday and per nursing reports patient was opening eyes spontaneously however not following any instructions. Patient was placed back on sedation at at bedtime. Today's blood work has been reviewed showing white blood cell count is 6.8, hemoglobin of 9.9, platelet count is 584, sodium is 138, potassium is 3.9, chloride is 110, B1 is 30 creatinine is 1.33. Patient's inflammatory markers from a few days ago show a normal LDH of 413, CRP of 5.5. Patient is currently being treated for ESBL E. coli pneumonia, and patient is covered with meropenem. Vital signs have been stable overnight, patient has been afebrile. Michelle catheter is in place, and urine output is in order of 100-150 ML per hour. Is tolerating tube feedings he is receiving Nepro 2.2 at 22 ML per hour with standard water flushes 30 mL every 4 hours. Patient has been on stress doses of hydrocortisone at 100 mg every 6 hours. He is also on midodrine 10 mg 3 times daily, he is on prophylactic dose Lovenox 40 mg once daily, and Protonix for GI prophylaxis, generally patient has diffuse edema in his trunk, upper and lower extremities, and overall he is in +27 kg net fluid balance since admission. Patient has had D5W infusion infusing at 75 ML per hour for hypernatremia and hypoglycemia since 05/21/2021. Patient is tolerating tube feedings there has been no recurrence of hypoglycemia and at this time D5W can be safely discontinued. On 06/03/2021 patient seen in follow-up in intensive care unit, yesterday he tolerated sedation holiday, he was placed on Precedex, he did not follow instruction however he was opening his eyes, he was comfortable without significant agitation and subsequently patient was placed on pressure-support with 12 and a CPAP of 5 and FiO2 of 40% and tolerated several hours of it. He was placed on small dose of Precedex to prevent him from stacking his breasts. In the evening he started becoming agitated, he was becoming hypoxic, he was difficult to ventilate, peak pressure alarm was alarming on the ventilator. The tracheostomy tube was adjusted, stat chest x-ray was obtained showing blunting of the costophrenic angles consistent with bilateral pleural effusions, mild pulmonary congestion, and tracheostomy tube which appear to be against the back wall of the trachea and this was thought to be the possible cause of the high peak pressure alarms. There was no evidence of pneumothorax on the chest x-ray. The tracheostomy tube was adjusted and subsequently patient was easier to ventilate, he was recently dated with the propofol and placed on Nimbex for the night. At the same time he went into A. fib with RVR, her own infusion at 1 mg/min after the initial bolus of 150 mg IV piggyback was administered, he currently remains in atrial fibrillation with a better controlled rate at 95 BPM. He is sedated paralyzed and trach to the ventilator on assist control mode of ventilation with a rate of 24, TV 300, FiO2 at 60% and PEEP of 5, this morning blood gas shows pO2 of 128, pCO2 of 74, pH 7.25. Subsequently FiO2 has been dropped down to 40% and patient is maintaining O2 saturations at around 100%, currently hemodynamically he still requiring a small dose of norepinephrine at 0.07 mics per kilo per minute, 0.9 normal saline area to 20 ML per hour and amiodarone drip at 1 mg/m as mentioned above. No other drips. She is tolerating tube feedings she is receiving Nepro at 31 with a goal of 31 and standard water flushes 30 mL every 4 hours. He was started on IV diuretics with Lasix 40 mg every 12 hours, and he has produced 5.9 L in the urine output last 24 hours and he is in -3.7 L net fluid balance over the last 24 hours. This morning's labs show white blood cell count of 11.8, hemoglobin of 10.9, sodium is 139, potassium is 3.4, chloride is 104, CO2 is 31, BUN is 40 creatinine is 1.42. Overall generally she looks less swollen with less tightness in his abdominal wall, and improved bilateral upper and lower extremity edema. On the 06/04/2021 patient seen in follow-up in the intensive care units. Patient today is awake, he is a bit restless, he's trying to talk around his tracheostomy, unable to squeeze hands on command, he did actually say good morning back to me. All sedation has been off since yesterday, patient is c urrently just on 0.9 normal saline 120 ML per hour, no other drips. Hemodynamically patient has been stable, he is in sinus mechanism, and she converted yesterday. No recurrent episodes of atrial fibrillation. His amiodarone infusion has been transitioned to oral amiodarone 200 mg twice daily. Yesterday patient was placed on pressure support trials very briefly, became very restless and had to be placed on assist-control mode of ventilation for the night, he is currently on assist control with a rate of 24, tidal vital 300 FiO2 of 40% and PEEP of 5. This morning's blood gas shows pO2 of 88, pCO2 48, and pH of 7.47. This was done on above-mentioned ventilator settings. Today's chest x-ray shows slight worsening in the moderate right and small left plural effusion. Yesterday patient's Lasix was held per nephrology. Today patient will receive 40 of Lasix this morning. Generally patient still appears to be quite fluid overloaded with generalized edema in his upper and lower extremities and his trunk. Patient has produced 2.4 L in urine output, and he is in -398 mL net fluid balance over the last 24 hours. Patient has been on meropenem for ESBL E. coli in the sputum is 05/28/2021. Vital signs have been stable, no fever or chills, hemodynamically has been stable. He remains on hydrocortisone 100 mg every 6 hours. He has been off vasopressors for the last almost 24 hour s. Today's lab 7 reviewed, with blood cell count is 8.2, hemoglobin is 10.1, platelet count is 425, sodium is 140, potassium is 3.1, chloride is 105, CO2 is 34, BUN is 45 and creatinine is 1.45. Serum potassium has been replaced per protocol and remains persistently low despite the replacements. His inflammatory markers are within the normal range today with LDH at 452, and CRP of 0.6. Patient has been receiving nutritional support with Nepro at 31 mL with a goal of 31 and standard water flushes, tolerating them well. On 06/05/2021 patient seen in follow-up in the intensive care unit, he is awake and alert, he has been trying to talk around the tracheostomy, at times his verbal responses seem appropriate, but patient is unable to squeeze with his hands at this time although midnight shift nurse said that he did squeeze her hands on command last night. Currently he is sitting up on the bed, and the ICU team is getting ready to get him up in a chair. He is profoundly weak, he is u nable to stand unassisted, and for that reason mechanical lift was used to get the patient up in the recliner. Physical therapy is at the bedside as well. Patient tolerated procedure quite well. He is currently resting comfortably in the recliner, he is on assist-control mode of ventilation with a rate of 24, tidal vital 300, FiO2 of 40% and PEEP of 5, this might blood gas shows pO2 of 72, pCO2 of 43, and pH of 7.50, this was done on the above-mentioned ventilator settings. Yesterday patient tolerated pressure-support 5 and CPAP of 5 trials from 9:30 AM until 10:30 PM. he was switched assist-control mode for the night. Today's chest x-ray shows chronic emphysematous and pulmonary fibrotic changes with persistent bilateral pleural effusions and bilateral multifocal opacities consistent with his recent history of COVID-19 pneumonia. There is no significant change compared to yesterday's exam. Currently patient's remains on a once daily dose of IV Lasix 40 mg, he is in negative fluid balance of 1.2 L negative net fluid balance. Patient has produced 2.9 L and urine output in the last 24 hours. Hemodynamically stable, he is not requiring any vasopressor support, he has 0.9 normal saline at rate of 20 ML per hour, all sedatives have been discontinued, patient at times had been receiving intermittent doses of IV Dilaudid for generalized discomfort. Single episode of low-grade fever in the last 24 hours, with a temp of 99.3F, patient remains on meropenem for ESBL E. coli in the sputum, ID service is following, today's labs have been reviewed showing white blood cell count of 8.4, hemoglobin is 9.8, serum sodium is 141, potassium is 3.7, chloride is 103, CO2 is 37, BUN is 47, creatinine is 1.46., LFTs are within normal limits, his LDH today is 534 in normal range, CRP is 2.0. He remains on hydrocortisone, but that the dose to 50 mg every 8 hours yesterday. Patient has maintained stable blood pressure and heart rate, and there has been no recurrence of atrial fibrillation. On 06/06/2021 patient seen in follow-up in the intensive care unit, yesterday patient tolerated the 40% trach collar for over 12 hours. Patient was also placed in the chair via a mechanical lift, tolerated activity well. At night he was placed back on assist control mode of ventilation with a rate of 24, tidal volume of 300, FiO2 of 40% and PEEP of 5. Has not required a vasopressor support in several days, we have been gradually weaning down his hydrocortisone, yesterday we dropped it to 50 mg every 12 hours. Patient also receives midodrine 10 mg 3 times daily. He continues on meropenem for ESBL E. coli related pneumonia. ID service is following, vital signs have been stable, no fever or chills, hemodynamically has been stable, he is awake and alert, although he is not following instructions, he staring up in the ceiling, he is moaning, he is confused, at times he is able to mouth some words back, however not consistently. He is in sinus mechanism, continues on oral amiodarone and Eliquis 5 mg twice daily. Today's chest x-ray shows similar COPD with mid and lower lung infiltrates and small effusions. He is on once daily dose of Lasix 40 mg, and he is in negative fluid balance of 594 mL over last 24 hours. His been tolerating tube feedings and he is receiving Nepro at 40 with a goal of 40 and standard water flushes 30 mL every 4 hours. His generalized edema has significantly improved with some residual edema in his bilateral lower extremities, but upper extremity edema has improved as well as truncal edema. Today's labs have been reviewed showing white blood cell count of 5.8, hemoglobin of 9.5, platelet count of 274, sodium of 143, potassium is 3.6, chloride is 104, CO2 is 40, BUN is 49, creatinine is 1.35 LFTs are within normal limits, LDH remains within normal limits at 489, and CRP is 2.2. Social work has been following, and patient is anticipated to transfer to LTAC facility today. Patient was accepted to the LTAC facility and the transfer was planned yesterday however due to inclement weather his transfer was scheduled for this morning. Objective - Vital Signs Vital signs: Vital Signs Temp 97.9 F 06/06/21 08:00 Pulse 76 06/06/21 08:00 Resp 24 06/06/21 08:00 BP 105/56 06/06/21 08:00 Pulse Ox 98 06/06/21 08:00 Intake & Output 06/05/21 06/06/21 06/06/21 18:59 06:59 18:59 Intake Total 996 850 320 Output Total 1455 985 275 Balance -459 -135 45 Weight 82.4 kg Intake: IV 346 320 40 0.9 NaCl- 120 220 40 Meropenem 199 100 pressure bag 27 Tube Feeding 440 440 80 Other 210 90 200 Output: Urine 1455 985 275 Other: Voiding Method Indwelling Catheter Indwelling Catheter Indwelling Catheter ABP, PAP, CO, CI - Last Documented Arterial Blood Pressure 113/56 - Exam GENERAL EXAM: Frail and generally edematous 70-year-old white male, on 40% trach collar, tolerating it well, and patient was on assist-control mode of ventilation last night with FiO2 40% and PEEP of 5. Comfortable in no apparent distress. Patient was just placed in recliner by the ICU team using the mech lift HEAD: Normocephalic/atraumatic. EYES: Normal reaction of pupils, equal size. Conjunctiva pink, sclera white. NOSE: Clear with pink turbinates. THROAT: No erythema or exudates. NECK: No masses, no JVD, no thyroid enlargement, no adenopathy. Midline tracheostomy #7, bivona trach in place, clean dry and intact, and patient is connected to the ventilator with assist control mode of ventilation CHEST: No chest wall deformity. Symmetrical expansion. LUNGS: Equal air entry with diminished breath sounds and crackles CVS: Regular rate and rhythm, normal S1 and S2, no gallops, no murmurs, no rubs ABDOMEN: Soft, nontender. No hepatosplenomegaly, normal bowel sounds, no g uarding or rigidity. PEG tube is in place EXTREMITIES: No clubbing, with severe generalized swelling noted in upper and lower extremities no cyanosis, and truncal edema, 2+ pulses and upper and lower extremities. MUSCULOSKELETAL: Muscle strength and tone normal. SPINE: No scoliosis or deformity SKIN: No rashes. His and has various areas of decubitus ulcers, stage II with his ulcers on buttocks, bilateral hips, left elbow, and deep tissue injury on his bilateral heels CENTRAL NERVOUS SYSTEM: Patient is awake and alert, his gaze is staring up at the ceiling, does not make very good eye contact, does not consistently follow instructions, he is able to repeat some words back at times, he is moaning, at times he is talking around the tracheostomy. No focal deficits, tone is normal in all 4 extremities. - Labs CBC & Chem 7: 06/06/21 05:20 06/06/21 05:20 Labs: Abnormal Lab Results - Last 24 Hours (Table) 06/05/21 06/05/21 06/05/21 Range/Units 11:57 17:45 23:52 RBC (4.30-5.90) m/uL Hgb (13.0-17.5) gm/dL Hct (39.0-53.0) % Lymphocytes # (1.0-4.8) k/uL Potassium 3.3 L (3.5-5.1) mmol/L Carbon Dioxide (22-30) mmol/L BUN (9-20) mg/dL Creatinine (0.66-1.25) mg/dL Glucose (74-99) mg/dL POC Glucose (mg/dL) 101 H 108 H (75-99) mg/dL Calcium (8.4-10.2) mg/dL C-Reactive Protein (<1.0) mg/dL Total Protein (6.3-8.2) g/dL Albumin (3.5-5.0) g/dL 06/06/21 06/06/21 06/06/21 Range/Units 05:20 05:20 05:21 RBC 2.97 L (4.30-5.90) m/uL Hgb 9.5 L (13.0-17.5) gm/dL Hct 28.6 L (39.0-53.0) % Lymphocytes # 0.4 L (1.0-4.8) k/uL Potassium (3.5-5.1) mmol/L Carbon Dioxide 40 H (22-30) mmol/L BUN 49 H (9-20) mg/dL Creatinine 1.35 H (0.66-1.25) mg/dL Glucose 110 H (74-99) mg/dL POC Glucose (mg/dL) 110 H (75-99) mg/dL Calcium 7.8 L (8.4-10.2) mg/dL C-Reactive Protein 2.2 H (<1.0) mg/dL Total Protein 4.4 L (6.3-8.2) g/dL Albumin 2.0 L (3.5-5.0) g/dL Assessment and Plan Plan: Assessment: #1. Acute hypoxic respiratory failure related to acute COVID-19 pneumonia, and possibility of bacterial infection/aspiration related pneumonia is not entirely excluded, sputum culture showed ESBL E. coli, and patient will be covered with meropenem. ID service is on the case. Patient was brought into the emergency department on 05/17/2021 per EMS, patient is a poor historian, reportedly has history of bipolar disease and dementia. Came in primarily for evaluation of altered mental status. Transferred from [place] emergency department for COVID-19 related pneumonia. The patient was taken to the hospital in [place] 4 days prior to this admission and the symptom onset was probably even prior to that. Exact onset of symptoms is not known. Patient was transferred to the in tensive care unit on 05/19/2021 for worsening hypoxia, and hypercapnia, and altered mental status, and was intubated on 05/19/2021 on assist control mode of ventilation with a rate of 30, tidal on his 350, FiO2 40% and PEEP of 5. Patient had tolerated pressure support trials, and was extubated on 05/24/2021 however failed and was reintubated on 05/25/2021. On 06/04/2021 patient is awake, he is mouthing words around his trach, he is able to give some simple responses, does not consistently follow commands yet, generally he is quite weak. Tolerated 13 hours of pressure-support 5 and CPAP 5 today, with FiO2 of 40% on 06/04/2021 #2. Hypotension, related to dehydration, and possibility of septic shock. Patient remains on norepinephrine for vasopressor support, serum cortisol level was only 7, patient was placed on stress doses of hydrocortisone which is now being weaned, now that he has remained hemodynamically stable for last 72 hours #2. Altered mental status with worsened from baseline, improving #3. History of dementia and schizoaffective disorder #4. Acute dehydration and hypernatremia present on admission, resolved with IV hydration #5. Chronic stage 3 kidney disease #6. COPD #7. History of coronary artery disease #8. GERD/reflux #9. Hyperlipidemia, improving #10. Acute kidney injury related to ATN, and dehydration, improved #11. Hypokalemia, being corrected #12. Hypoglcemia, resolved, patient is tolerating tube feedings. #13. Multiple areas of decubitus ulcer including deep tissue injury on bilateral heels, stage II on buttocks, stage II on bilateral hips and stage I on left elbow, present on admission #14. A. fib with RVR on 06/03/2021, patient was started on amiodarone and Eliquis, currently in sinus mechanism Plan: Today's labs, CXR and labs reviewed Chest x-ray showing Stable small bilateral pleural effusions, Continue once dose of Lasix patient tolerated 12-13 hours on 40 %trach collar yesterday Patient was placed again on 40% trach collar this morning after resting an assist-control mode of ventilation last night He is up in a chair, tolerating activity well Remains in sinus mechanism no recurrence of A. fib, on amiodarone and Eliquis Hemodynamically stable Stop the IV hydrocortisone we'll place the patient on Cortef 20 mg in the morning 10 mg at night Continue nutritional support with tube feedings No acute events overnight Plan for treatment with meropenem per ID service recommendations Anticipate transfer to LTAC facility this morning We'll continue to closely follow in the ICU in the meantime I performed a history & physical examination of the patient and discussed their management with my nurse practitioner, Veronica Chiu. I reviewed the nurse practitioner's note and agree with the documented findings and plan of care. Lung sounds are positive for diminished breath sounds throughout the lung watson. The findings and the impression was discussed with the patient. I atte st to the documentation by the nurse practitioner. Time with Patient: Greater than 30
[2021-06-06 11:58] LABS: Glucose,Whole Blood 107 mg/dL (75-99)
--- NOTE | 2021-06-06 16:58 | P.PN ---
Subjective Progress Note Date: 06/06/21 CHIEF COMPLAINT: COVID-19 pneumonia HISTORY OF PRESENT ILLNESS: Patient is in the ICU. Patient was decannulated this morning. He is tolerating his tube feeds. Patient is status post PEG tube and tracheostomy placement on 05/26/21. Patient has had no issues with his PEG tube. They're adjusting trach tube sites today. Patient being discharged to select specialty. PHYSICAL EXAM: VITAL SIGNS: Reviewed. GENERAL: no acute distress. HEENT: Moist buccal mucosa. Head is atraumatic, normocephalic. Tracheostomy site clean dry and intact ABDOMEN: Soft. Nondistended. PEG tube site clean dry and intact ASSESSMENT: 1. Acute hypoxic respiratory failure secondary to COVID-19 pneumonia with mecha nical ventilation and difficulty weaning from the vent status post tracheostomy placement 2. Severe protein calorie malnutrition status post PEG tube placement PLAN: -Continue tube feedings -Continue supportive care -Patient being transferred to select specialty hopefully today Physician Display Coordinator note has been reviewed by physician. Signing provider agrees with the documented findings, assessment, and plan of care. Objective - Vital Signs Vital signs: Vital Signs Temp 97.7 F 06/06/21 16:00 Pulse 82 06/06/21 16:00 Resp 19 06/06/21 16:00 BP 115/89 06/06/21 16:00 Pulse Ox 92 L 06/06/21 16:00 Intake & Output 06/05/21 06/06/21 06/06/21 18:59 06:59 18:59 Intake Total 996 850 975 Output Total 8037 290 8299 Balance -459 -135 -2090 Weight 82.4 kg 82.4 kg Intake: IV 346 320 280 0.9 NaCl- 120 220 180 Meropenem 199 100 100 pressure bag 27 Tube Feeding 440 440 435 Other 210 90 260 Output: Urine 9129 717 3978 Other: Voiding Method Indwelling Catheter Indwelling Catheter Indwelling Catheter ABP, PAP, CO, CI - Last Documented Arterial Blood Pressure 113/56 - Labs CBC & Chem 7: 06/06/21 05:20 06/06/21 05:20 Labs: Abnormal Lab Results - Last 24 Hours (Table) 06/05/21 06/05/21 06/06/21 Range/Units 17:45 23:52 05:20 RBC 2.97 L (4.30-5.90) m/uL Hgb 9.5 L (13.0-17.5) gm/dL Hct 28.6 L (39.0-53.0) % Lymphocytes # 0.4 L (1.0-4.8) k/uL Potassium 3.3 L (3.5-5.1) mmol/L Carbon Dioxide (22-30) mmol/L BUN (9-20) mg/dL Creatinine (0.66-1.25) mg/dL Glucose (74-99) mg/dL POC Glucose (mg/dL) 108 H (75-99) mg/dL Calcium (8.4-10.2) mg/dL C-Reactive Protein (<1.0) mg/dL Total Protein (6.3-8.2) g/dL Albumin (3.5-5.0) g/dL 06/06/21 06/06/21 06/06/21 Range/Units 05:20 05:21 11:56 RBC (4.30-5.90) m/uL Hgb (13.0-17.5) gm/dL Hct (39.0-53.0) % Lymphocytes # (1.0-4.8) k/uL Potassium (3.5-5.1) mmol/L Carbon Dioxide 40 H (22-30) mmol/L BUN 49 H (9-20) mg/dL Creatinine 1.35 H (0.66-1.25) mg/dL Glucose 110 H (74-99) mg/dL POC Glucose (mg/dL) 110 H 107 H (75-99) mg/dL Calcium 7.8 L (8.4-10.2) mg/dL C-Reactive Protein 2.2 H (<1.0) mg/dL Total Protein 4.4 L (6.3-8.2) g/dL Albumin 2.0 L (3.5-5.0) g/dL
[2021-06-06 19:45] LABS: Glucose,Whole Blood 104 mg/dL (75-99)
--- NOTE | 2021-06-06 22:50 | P.PN ---
Subjective Progress Note Date: 06/05/21 Principal diagnosis: COVID-19 pneumonia Interval history: Patient is a 70-year-old male presented to the hospital with acute respiratory failure in this but have a evidence of multifocal pneumonia secondary to COVID-19. Patient did have worsening of his respiratory status requiring intubation on 05/19/2021, patient has been extubated on 05/24/2021 however the patient did have worsening of his respiratory status and inability intubated night of 05/24/2021, patient is status post trach and PEG on 05/26/2021 On today's evaluation that is 06/05/2021, The patient remains to be afebrile, the patient is hemodynamically stable, the patient breathing comfortably on trac h mask, no purulent secretions through the ET, patient has been tolerating his tube feeds and no diarrhea has been reported by the nursing staff, Objective - Vital Signs Vital signs: Vital Signs Temp 98.8 F 06/05/21 12:00 Pulse 68 06/05/21 15:00 Resp 25 H 06/05/21 15:00 BP 119/55 06/05/21 05:00 Pulse Ox 97 06/05/21 15:00 Intake & Output 06/04/21 06/05/21 06/05/21 18:59 06:59 18:59 Intake Total 838.02 834 588 Output Total 2260 685 805 Balance -1421.98 149 -217 Weight 84.4 kg 81 kg Intake: IV 376.02 273 198 0.9 NaCl- 240 240 80 Meropenem 100.02 100 pressure bag 36 33 18 Tube Feeding 372 471 240 Other 90 90 150 Output: Urine 2260 685 805 Other: Voiding Method Indwelling Catheter Indwelling Catheter Indwelling Catheter ABP, PAP, CO, CI - Last Documented Arterial Blood Pressure 93/39 - Exam General description is an elderly male intubated on the vent Respiratory system:Unlabored breathing, decreased intensity in breath sounds. Heart S1, S2. Regular rate and rhythm. Abdomen soft, no tenderness. Extremities: No edema feet - Labs CBC & Chem 7: 06/06/21 05:20 06/06/21 05:20 Labs: Abnormal Lab Results - Last 24 Hours (Table) 06/04/21 06/05/21 06/05/21 Range/Units 21:40 04:38 04:38 RBC 3.11 L (4.30-5.90) m/uL Hgb 9.8 L (13.0-17.5) gm/dL Hct 29.8 L (39.0-53.0) % Neutrophils # 7.9 H (1.3-7.7) k/uL Lymphocytes # 0.3 L (1.0-4.8) k/uL ABG pH (7.35-7.45) ABG pCO2 (35-45) mmHg ABG pO2 (83-108) mmHg ABG HCO3 (21-25) mmol/L ABG Total CO2 (19-24) mmol/L Potassium 3.3 L (3.5-5.1) mmol/L Carbon Dioxide 37 H (22-30) mmol/L BUN 47 H (9-20) mg/dL Creatinine 1.46 H (0.66-1.25) mg/dL Glucose 104 H (74-99) mg/dL POC Glucose (mg/dL) (75-99) mg/dL Calcium 8.1 L (8.4-10.2) mg/dL C-Reactive Protein 2.0 H (<1.0) mg/dL Total Protein 4.7 L (6.3-8.2) g/dL Albumin 2.2 L (3.5-5.0) g/dL 06/05/21 06/05/21 06/05/21 Range/Units 05:00 06:36 11:57 RBC (4.30-5.90) m/uL Hgb (13.0-17.5) gm/dL Hct (39.0-53.0) % Neutrophils # (1.3-7.7) k/uL Lymphocytes # (1.0-4.8) k/uL ABG pH 7.50 H (7.35-7.45) ABG pCO2 49 H (35-45) mmHg ABG pO2 72 L (83-108) mmHg ABG HCO3 39 H (21-25) mmol/L ABG Total CO2 40 H (19-24) mmol/L Potassium (3.5-5.1) mmol/L Carbon Dioxide (22-30) mmol/L BUN (9-20) mg/dL Creatinine (0.66-1.25) mg/dL Glucose (74-99) mg/dL POC Glucose (mg/dL) 106 H 101 H (75-99) mg/dL Calcium (8.4-10.2) mg/dL C-Reactive Protein (<1.0) mg/dL Total Protein (6.3-8.2) g/dL Albumin (3.5-5.0) g/dL Assessment and Plan (1) Aspiration pneumonia Current Visit: Yes Status: Acute Code(s): J69.0 - PNEUMONITIS DUE TO INHALATION OF FOOD AND VOMIT SNOMED Code(s): 735058071 (2) COVID-19 Current Visit: Yes Status: Acute Code(s): U07.1 - COVID-19 SNOMED Code(s): 765926704 Plan: 1-Patient with acute respiratory failure which is multifactorial in this patient with initial diagnosis of COVID-19 pneumonia in this patient did have significant worsening of his respiratory status requiring intubation and concern for possible aspiration pneumonitis, status post trach and peg, patient's sputum has been finalized with ESBL E. coli, for the patient to continue with the meropenem and monitor his clinical course closely Time with Patient: Less than 30
--- NOTE | 2021-06-06 22:53 | P.PN ---
Subjective Progress Note Date: 06/06/21 Principal diagnosis: COVID-19 pneumonia Interval history: Patient is a 70-year-old male presented to the hospital with acute respiratory failure in this but have a evidence of multifocal pneumonia secondary to COVID-19. Patient did have worsening of his respiratory status requiring intubation on 05/19/2021, patient has been extubated on 05/24/2021 however the patient did have worsening of his respiratory status and inability intubated night of 05/24/2021, patient is status post trach and PEG on 05/26/2021. The patient trach has been removed and the patient trach site has been decannulated by pulmonary as of 06/06/2021 On today's evaluation that is 06/06/2021, The patient continues to be afebrile, the patient is in the history of any pressor support, the patient is breathing comfortably on room air, no vomiting or diarrhea has been reported by nursing staff patient remains to be lethargic and did not provide any history Objective - Vital Signs Vital signs: Vital Signs Temp 98.0 F 06/06/21 19:38 Pulse 67 06/06/21 19:38 Resp 18 06/06/21 19:38 BP 115/66 06/06/21 19:38 Pulse Ox 98 06/06/21 19:38 Intake & Output 06/06/21 06/06/21 06/07/21 06:59 18:59 06:59 Intake Total 850 1042 Output Total 985 3165 Balance -135 -2123 Weight 82.4 kg 82.4 kg Intake: IV 320 300 0.9 NaCl- 220 200 Meropenem 100 100 Tube Feeding 440 482 Other 90 260 Output: Urine 985 3165 Other: Voiding Method Indwelling Catheter Indwelling Catheter ABP, PAP, CO, CI - Last Documented Arterial Blood Pressure 113/56 - Exam General description is an elderly male lying in bed in no distress Respiratory system:Unlabored breathing, decreased intensity in breath sounds. Heart S1, S2. Regular rate and rhythm. Abdomen soft, no tenderness. Extremities: No edema feet - Labs CBC & Chem 7: 06/06/21 05:20 06/06/21 05:20 Labs: Abnormal Lab Results - Last 24 Hours (Table) 06/05/21 06/06/21 06/06/21 Range/Units 23:52 05:20 05:20 RBC 2.97 L (4.30-5.90) m/uL Hgb 9.5 L (13.0-17.5) gm/dL Hct 28.6 L (39.0-53.0) % Lymphocytes # 0.4 L (1.0-4.8) k/uL Carbon Dioxide 40 H (22-30) mmol/L BUN 49 H (9-20) mg/dL Creatinine 1.35 H (0.66-1.25) mg/dL Glucose 110 H (74-99) mg/dL POC Glucose (mg/dL) 108 H (75-99) mg/dL Calcium 7.8 L (8.4-10.2) mg/dL C-Reactive Protein 2.2 H (<1.0) mg/dL Total Protein 4.4 L (6.3-8.2) g/dL Albumin 2.0 L (3.5-5.0) g/dL 06/06/21 06/06/21 06/06/21 Range/Units 05:21 11:56 19:43 RBC (4.30-5.90) m/uL Hgb (13.0-17.5) gm/dL Hct (39.0-53.0) % Lymphocytes # (1.0-4.8) k/uL Carbon Dioxide (22-30) mmol/L BUN (9-20) mg/dL Creatinine (0.66-1.25) mg/dL Glucose (74-99) mg/dL POC Glucose (mg/dL) 110 H 107 H 104 H (75-99) mg/dL Calcium (8.4-10.2) mg/dL C-Reactive Protein (<1.0) mg/dL Total Protein (6.3-8.2) g/dL Albumin (3.5-5.0) g/dL Assessment and Plan (1) Aspiration pneumonia Current Visit: Yes Status: Acute Code(s): J69.0 - PNEUMONITIS DUE TO INHALATION OF FOOD AND VOMIT SNOMED Code(s): 648001891 (2) COVID-19 Current Visit: Yes Status: Acute Code(s): U07.1 - COVID-19 SNOMED Code(s): 331422673 Plan: 1-Patient with acute respiratory failure which is multifactorial in this patient with initial diagnosis of COVID-19 pneumonia in this patient did have significant worsening of his respiratory status requiring intubation and concern for possible aspiration pneumonitis, status post trach and peg, patient's sputum has been finalized with ESBL E. coli, the patient seems to have clinically responded to meropenem to continue to finish his two-week course of therapy
[2021-06-06] MEDS: ATORVASTATIN 20 MG TAB PO SCH (23:23)
[2021-06-06] MEDS: OLANZapine ODT 10 MG TAB PO SCH (23:59)
[2021-06-06] MEDS: HYDROCORTISONE 10 MG TAB PO SCH (23:59)
[2021-06-07 02:37] LABS: Glucose,Whole Blood 101 mg/dL (75-99)
[2021-06-07 06:06] LABS: Glucose,Whole Blood 115 mg/dL (75-99)
[2021-06-07] MEDS: PANTOPRAZOLE 40 MG/10 ML VIAL IVP SCH (09:12)
[2021-06-07] MEDS: MIDODRINE 5 MG TAB PO SCH ×3 (09:12→17:00)
[2021-06-07] MEDS: APIXABAN 5 MG TAB PO SCH ×2 (09:12→22:33)
[2021-06-07] MEDS: FUROSEMIDE 10 MG/ML 4 ML VIAL IV SCH (09:12)
[2021-06-07] MEDS: FOLIC ACID 1 MG TAB PO SCH (09:12)
[2021-06-07] MEDS: FERROUS SULFATE ORAL ELIXIR 300 MG/5 ML CUP PO SCH (09:13)
[2021-06-07] MEDS: HYDROCORTISONE 20 MG TAB PO SCH (09:13)
[2021-06-07] MEDS: AMIODARONE 200 MG TAB PO SCH ×2 (09:13→22:33)
[2021-06-07] MEDS: NYSTATIN 100,000 UNIT/ML SUSP 500,000 UNIT/5 ML CUP PO SCH ×4 (09:14→17:02)
[2021-06-07] MEDS: IPRATROPIUM-ALBUTEROL 3 ML NEB INHALATION PRN ×3 (09:15→19:58)
[2021-06-07] MEDS: OLANZapine ODT 5 MG TAB PO SCH (09:21)
[2021-06-07] MEDS: MEROPENEM 1 GM in SODIUM CHLORIDE 0.9% 100 ML IVPB SCH ×3 (09:39→22:34)
[2021-06-07] MEDS: HYDROmorphone 1 MG/ML 1 ML SYRINGE IVP PRN ×2 (09:40→16:59)
[2021-06-07 11:19] LABS: Glucose,Whole Blood 119 mg/dL (75-99)
[2021-06-07] MEDS: POTASSIUM BICARBONATE/CIT AC 20 MEQ TABLET.EFF PO SCH ×2 (11:33→22:34)
--- NOTE | 2021-06-07 13:54 | P.PN ---
Subjective Progress Note Date: 06/07/21 On 06/07/2021, the patient is extubated and decannulated. His resting comfortably on the medical floor. He was having some fluctuations oxygen. We'll perform some suctioning and oxidation is back to normal and the patient for now is on 8 L with a pulse ox of 96%. Breathing is nonlabored. I may consider reinserting the Biv[place] tracheostomy tube are sharp tracheostomy tube with a later stage as the patient continues to have issues with secretions. For now, he seems to be able to cough it out without any major difficulties. Otherwise, his condition is stable. No significant events overnight. Is tolerating his enteral feeding for nutritional support. He remains on IV Merrem. He remains on anticoagulation with Eliquis 5 mg by mouth twice a day. He end up having a ESBL producing E. coli in the sputum and the patient is currently completing course of IV meropenem. Objective - Vital Signs Vital signs: Vital Signs Temp 98.4 F 06/07/21 09:02 Pulse 89 06/07/21 09:30 Resp 18 06/07/21 09:43 BP 126/67 06/07/21 09:21 Pulse Ox 93 L 06/07/21 09:44 Intake & Output 06/06/21 06/07/21 06/07/21 18:59 06:59 18:59 Intake Total 1042 47 Output Total 3165 Balance -2123 47 Weight 82.4 kg 72.5 kg Intake: IV 300 0.9 NaCl- 200 Meropenem 100 Tube Feeding 482 47 Other 260 Output: Urine 3165 Other: Voiding Method Indwelling Catheter Indwelling Catheter Indwelling Catheter ABP, PAP, CO, CI - Last Documented Arterial Blood Pressure 113/56 - Exam GENERAL EXAM: Frail and generally edematous 70-year-old white male, the cannulated currently on 8 L of oxygen by nasal cannula HEAD: Normocephalic/atraumatic. EYES: Normal reaction of pupils, equal size. Conjunctiva pink, sclera white. NOSE: Clear with pink turbinates. THROAT: No erythema or exudates. NECK: No masses, no JVD, no thyroid enlargement, no adenopathy. Midline tracheostomy incision site is dry clean and intact Cardiac exam revealed the PMI to be normally situated and sized. The rhythm was regular and no extrasystoles were noted during several minutes of auscultation. The first and second heart sounds were normal and physiologic splitting of the second heart sound was noted. There were no murmurs, rubs, clicks, or gallops. Lungs other the medicine the patient scattered rhonchi bilaterally ABDOMEN: Soft, nontender. No hepatosplenomegaly, normal bowel sounds, no guarding or rigidity. PEG tube is in place EXTREMITIES: No clubbing, with severe generalized swelling noted in upper and lower extremities no cyanosis, and truncal edema, 2+ pulses and upper and lower extremities. MUSCULOSKELETAL: Muscle strength and tone normal. SPINE: No scoliosis or deformity SKIN: No rashes. His and has various areas of decubitus ulcers, stage II with his ulcers on buttocks, bilateral hips, left elbow, and deep tissue injury on hi s bilateral heels CENTRAL NERVOUS SYSTEM: Patient is awake and alert, his gaze is staring up at the ceiling, does not make very good eye contact, does not consistently follow instructions, he is able to repeat some words back at times, he is moaning, at times he is talking around the tracheostomy. No focal deficits, tone is normal in all 4 extremities. - Labs CBC & Chem 7: 06/06/21 05:20 06/06/21 05:20 Labs: Abnormal Lab Results - Last 24 Hours (Table) 06/06/21 06/07/21 06/07/21 Range/Units 19:43 02:35 06:05 POC Glucose (mg/dL) 104 H 101 H 115 H (75-99) mg/dL 06/07/21 Range/Units 11:17 POC Glucose (mg/dL) 119 H (75-99) mg/dL Assessment and Plan Plan: #1. Acute hypoxic respiratory failure related to acute COVID-19 pneumonia, and possibility of bacterial infection/aspiration related pneumonia is not entirely excluded, sputum culture showed ESBL E. coli, and patient will be covered with meropenem. Patient is currently off mechanical ventilator. The patient is decannulated currently on 8 L of oxygen by nasal cannula. #2. E. coli ESBL producing pneumonia, and a chest x-ray was showing some lower lobe pulmonary infiltrates and small effusions. He still having some respiratory secretions requiring increased suctioning. #3. History of dementia and schizoaffective disorder,ltered mental status with worsened from baseline, improving #4. Acute dehydration and hypernatremia present on admission, resolved with IV hydration #5. Chronic stage 3 kidney disease #6. COPD #7. History of coronary artery disease #8. GERD/reflux #9. Hyperlipidemia, improving #10. Acute kidney injury related to ATN, and dehydration, improved #11. Hypokalemia, being corrected #12. Hypoglcemia, resolved, patient is tolerating tube feedings. #13. Multiple areas of decubitus ulcer including deep tissue injury on bilateral heels, stage II on buttocks, stage II on bilateral hips and stage I on left elbow, present on admission #14. A. fib with RVR on 06/03/2021, patient was started on amiodarone and Eliqu is, currently in sinus mechanism Plan Continue supportive care May consider reinserting the tracheostomy tube and the patient continues to have issues with secretions Continue IV meropenem Continue enteral nutrition with Eliquis Continue enteral feeding for nutritional support We'll continue to follow
[2021-06-07 16:37] LABS: Glucose,Whole Blood 148 mg/dL (75-99)
[2021-06-07] MEDS: OLANZapine ODT 10 MG TAB PO SCH (22:33)
[2021-06-07] MEDS: ATORVASTATIN 20 MG TAB PO SCH (22:33)
[2021-06-07] MEDS: HYDROCORTISONE 10 MG TAB PO SCH (22:33)
[2021-06-07] MEDS: ACETAMINOPHEN TAB 325 MG TAB PO PRN (22:35)
[2021-06-08 00:10] LABS: Glucose,Whole Blood 105 mg/dL (75-99)
[2021-06-08] MEDS: HYDROmorphone 1 MG/ML 1 ML SYRINGE IVP PRN (02:59)
[2021-06-08] MEDS ORDERED: SCOPOLAMINE 1.5MG/72HR PATCH TRANSDERM SCH (03:30)
[2021-06-08] MEDS ORDERED: LORazepam 2 MG/ML INJ IV STA (05:40)
[2021-06-08 06:20] LABS: Glucose,Whole Blood 114 mg/dL (75-99)
[2021-06-08] MEDS: APIXABAN 5 MG TAB PO SCH ×2 (07:44→20:39)
[2021-06-08] MEDS: MIDODRINE 5 MG TAB PO SCH ×3 (07:44→17:45)
[2021-06-08] MEDS: MEROPENEM 1 GM in SODIUM CHLORIDE 0.9% 100 ML IVPB SCH ×3 (07:44→23:49)
[2021-06-08] MEDS: PANTOPRAZOLE 40 MG/10 ML VIAL IVP SCH (07:45)
[2021-06-08] MEDS: HYDROCORTISONE 20 MG TAB PO SCH (07:45)
[2021-06-08] MEDS: OLANZapine ODT 5 MG TAB PO SCH (07:46)
--- NOTE | 2021-06-08 08:03 | XR ---
EXAMINATION TYPE: XR chest 1V portable DATE OF EXAM: 06/08/2021 CLINICAL HISTORY: Difficulty breathing progress study. TECHNIQUE: Single AP portable upright view of the chest is obtained. COMPARISON: Chest x-ray from 2 days earlier FINDINGS: Interval removal of tracheostomy tube. Stable left-sided PICC line. Background chronic emphysematous and parenchymal change with bilateral multifocal increased opacities and small bilateral pleural effusions redemonstrated. Cardiac silhouette size is stable and upper li mits of normal. Osseous structures remain demineralized. Underlying scoliosis is redemonstrated. IMPRESSION: Interval removal of tracheostomy tube. Chronic emphysematous and pulmonary fibrotic carrasco es with persistent small bilateral pleural effusions and bilateral multifocal mid to lower lung opaci ties consistent with covid-19 infection and/or ARDS are redemonstrated. No significant change from on e day earlier.
[2021-06-08] MEDS ORDERED: CISATRACURIUM 2 MG/ML 5 ML VIAL IV ONE (08:34)
[2021-06-08] MEDS ORDERED: propofoL 100 ML IV ONE (08:34)
--- NOTE | 2021-06-08 08:42 | XR ---
EXAMINATION TYPE: XR chest 1V portable DATE OF EXAM: 06/08/2021 CLINICAL HISTORY: New tracheostomy. TECHNIQUE: Single AP portable semiupright view of the chest is obtained. COMPARISON: Chest x-ray from earlier today and older studies FINDINGS: New tracheostomy tube now present satisfactory in position. Stable left-sided PICC line. Background chronic emphysematous and parenchymal change with bilateral multifocal increased opacities and small bilateral pleural effusions redemonstrated. Some improvement in left midlung opacity could be product of technique change. Cardiac silhouette size is stable and upper limits of normal. Osseou s structures remain demineralized. Underlying scoliosis is redemonstrated. IMPRESSION: New tracheostomy tube is satisfactory in position. Other findings likely stable. Chronic emphysematous and pulmonary fibrotic changes with persistent small bilateral pleural effusions and bi lateral multifocal mid to lower lung opacities consistent with covid-19 infection and/or ARDS are red emonstrated.
--- NOTE | 2021-06-08 09:00 | XR ---
EXAMINATION TYPE: XR chest 1V portable DATE OF EXAM: 06/08/2021 CLINICAL HISTORY: Tracheostomy exchange. TECHNIQUE: Single AP portable upright view of the chest is obtained. COMPARISON: Chest x-ray from earlier today an older studies FINDINGS: New tracheostomy tube slightly smaller in length remain satisfactory in position. Stable l eft-sided PICC line. Background chronic emphysematous and parenchymal change with bilateral multifocal increased opacities and small bilateral pleural effusions are all redemonstrated. Cardiac silhouette size is stable and upper limits of normal. Osseous structures remain demineralized. Underlying scoliosis is redemonstrat ed. IMPRESSION: New tracheostomy tube is satisfactory in position. Other findings likely stable. Chronic emphysematous and pulmonary fibrotic changes with persistent small bilateral pleural effusions and bi lateral multifocal mid to lower lung opacities consistent with covid-19 infection and/or ARDS are red emonstrated.
[2021-06-08] MEDS ORDERED: SODIUM CHLORIDE 0.9% 1,000 ML IV ONE (09:11)
[2021-06-08 09:47] LABS: ABG Base Excess 14.8 mmol/L; ABG HCO3 39 mmol/L (21-25); ABG Oxygen Saturation 97.5 % (94-97); ABG PCO2 57 mmHg (35-45); ABG PH 7.44 (7.35-7.45); ABG PO2 81 mmHg (83-108); ABG TCO2 41 mmol/L (19-24); Allen Test Performed? Yes
--- NOTE | 2021-06-08 09:48 | P.PN ---
Subjective Progress Note Date: 06/08/21 Morning of 06/08/2021, the patient decompensated. This was essentially related to excess amount of rest or secretions which the patient was unable to cough. Noted the patient was decannulated. He was on a medical floor. He was placed on progressively higher oxygen flow and he became progressively more lethargic and tachypneic using NSAIDs and muscle breathing. Pulse ox dropped and it low 80s. I attended on this patient in the plastic printer hours and immediately I inserted a extra long #[address] trache[address] tube in place. This is a coughed tracheostomy tube. Post tracheostomy tube insertion, we've performed repeated suctioning in fact the patient's oxidation obviously improved. Following that, the patient was transferred to the ICU. Initially was placed on a pressure support mode of mechanical ventilation. Nevertheless, he was having prolonged apneas. Currently is on assist control mode at the rate of 14, tidal volume of 350, FiO2 is at 50% with a PEEP of 5. Chest x-ray post insertion of a tracheostomy tube revealed some effusion in lung bases bilaterally along with some bibasilar pulmonary infiltrates. Note that the patient was having copious amount of respiratory secretions and his previous culture was positive for ESBL producing E. coli and the patient is currently on IV meropenem. He is more lethargic. Less responsive on today's evaluation. He has not received any sedation for us. He is receiving enteral feeding for nutritional support and the patient is currently on Nepro at the rate of 47 mL an hour. During those events, he also became slightly hypotensive. Most recent blood pressure 91/53. He is not requiring any pressors. IV fluids are running at the rate of 75 mL an hour. He will be also receiving a bolus of 1 L normal saline. He is afebrile. He remains on Eliquis 5 mg by mouth twice a day via PEG tube.b Objective - Vital Signs Vital signs: Vital Signs Temp 97.7 F 06/08/21 02:29 Pulse 79 06/08/21 07:58 Resp 26 H 06/08/21 07:58 BP 80/41 06/08/21 07:58 Pulse Ox 76 L 06/08/21 07:58 Intake & Output 06/07/21 06/08/21 06/08/21 18:59 06:59 18:59 Output Total 1300 1400 0 Balance -1300 -1400 0 Weight 70.5 kg Output: Urine 1300 1400 0 Other: Voiding Method Indwelling Catheter Indwelling Catheter ABP, PAP, CO, CI - Last Documented Arterial Blood Pressure 113/56 - Exam GENERAL EXAM: Frail and generally edematous 70-year-old white male, the ventilator. Is calm and comfortable. He is however quite lethargic, with those on to deep painful stimulation. HEAD: Normocephalic/atraumatic. EYES: Normal reaction of pupils, equal size. Conjunctiva pink, sclera white. NOSE: Clear with pink turbinates. THROAT: No erythema or exudates. NECK: No masses, no JVD, no thyroid enlargement, no adenopathy. Midline tracheostomy incision site is dry clean and intact . The patient has an extra long Shiley tracheostomy tube in place which is cough. Copious amount of rest or secretions are being suctioned from the tracheostomy tube which is quite purulent. Cardiac exam revealed the PMI to be normally situated and sized. The rhythm was regular and no extrasystoles were noted during several minutes of auscultation. The first and second heart sounds were normal and physiologic splitting of the second heart sound was noted. There were no murmurs, rubs, clicks, or gallops. Lungs other the medicine the patient scattered rhonchi bilaterally ABDOMEN: Soft, nontender. No hepatosplenomegaly, normal bowel sounds, no guarding or rigidity. PEG tube is in place EXTREMITIES: No clubbing, with severe generalized swelling noted in upper and lower extremities no cyanosis, and truncal edema, 2+ pulses and upper and lower extremities. MUSCULOSKELETAL: Muscle strength and tone normal. SPINE: No scoliosis or deformity SKIN: No rashes. His and has various areas of decubitus ulcers, stage II with his ulcers on buttocks, bilateral hips, left elbow, and deep tissue injury on his bilateral heels CENTRAL NERVOUS SYSTEM: Lethargic, somnolent, withdrawing only to deep painful stimulation. Positive cough. - Labs CBC & Chem 7: 06/06/21 05:20 06/06/21 05:20 Labs: Abnormal Lab Results - Last 24 Hours (Table) 06/07/21 06/07/21 06/08/21 Range/Units 11:17 16:33 00:08 POC Glucose (mg/dL) 119 H 148 H 105 H (75-99) mg/dL 06/08/21 Range/Units 06:18 POC Glucose (mg/dL) 114 H (75-99) mg/dL Assessment and Plan Plan: #1. Acute hypoxic respiratory failure related to acute COVID-19 pneumonia, and possibility of bacterial infection/aspiration related pneumonia is not entirely excluded, sputum culture showed ESBL E. coli, and patient will be covered with meropenem. . The patient was having copious amount of respiratory secretions. He was decannulated. Subsequently, he was unable to keep a disaster secretions and the patient mucous plug and went to respiratory failure. Immediately, tracheostomy tube inserted and the patient was placed back on a mechanical ventilation. Frequent suctioning is being done. The patient will be kept on IV meropenem for now. He is currently on a mechanical ventilator, calm and comfortable, hemodynamically stable, chest x-ray was noted. Blood gases are still pending for now. Based on the chest x-ray findings, the tracheostomy tube is in a good location. There are some chronic fibrotic and emphysematous changes bilaterally along with [place] pleural effusions. #2. E. coli ESBL producing pneumonia, and a chest x-ray was showing some lower lobe pulmonary infiltrates and small effusions. #3. History of dementia and schizoaffective disorder #4. Profound weakness and debility due to prolonged hospitalization and ICU stay pos COVID 19 infection #5. Chronic stage 3 kidney disease, improving and the creatinine is down to 1.35 on 06/06/2021. #6. COPD #7. History of coronary artery disease #8. GERD/reflux #9. Hyperlipidemia, improving #10. Acute kidney injury related to ATN, and dehydration, improved , awaiting morning labs from today #11. Hypokalemia, being corrected #12. Hypoglcemia, resolved, patient is tolerating tube feedings. #13. Multiple areas of decubitus ulcer including deep tissue injury on bilateral heels, stage II on buttocks, stage II on bilateral hips and stage I on left elbow, present on admission #14. A. fib with RVR on 06/03/2021, patient was started on amiodarone and Eliquis, currently in sinus mechanism Plan Continue supportive care Keep the patient mechanical ventilator for now assist-control mode. Blood gases are still pending. Chest x-ray was noted. Continue IV meropenem Frequent suctioning Continue enteral nutrition with Eliquis Continue enteral feeding for nutritional support We'll continue to follow Long-term prognosis poor baseline above-mentioned comorbidities. Critically care evaluation that was done more than 30 minutes. Family will be updated on her condition. This sister is the legal guardian at this point in time.
[2021-06-08 10:00] LABS: Glucose,Whole Blood 101 mg/dL (75-99)
[2021-06-08 10:21] LABS: ALT 18 U/L (4-49); AST 26 U/L (17-59); African American GFR (CKD) 62 (>60 ml/min/1.73 sqM); Alkaline Phosphatase 55 U/L (38-126); Anion Gap -4 mmol/L; Basophils % (A) 0 %; Blood Urea Nitrogen 43 mg/dL (9-20); Carbon Dioxide 40 mmol/L (22-30); Chloride 111 mmol/L (98-107); Eosinophils # (A) 0.1 k/uL (0-0.7); Eosinophils % (A) 2 %; Glucose 104 mg/dL (74-99); HCT 26.8 % (39.0-53.0); HGB 8.7 gm/dL (13.0-17.5); Hypochromasia Slight; Lymphocytes # (A) 0.2 k/uL (1.0-4.8); Lymphocytes % (A) 3 %; MCH 32.2 pg (25.0-35.0); MCHC 32.6 g/dL (31.0-37.0); MCV 98.7 fL (80.0-100.0); Magnesium 2.1 mg/dL (1.6-2.3); Mean Platelet Volume 7.7; Monocytes # (A) 0.3 k/uL (0-1.0); Monocytes % (A) 3 %; Neutrophils # (A) 7.4 k/uL (1.3-7.7); Neutrophils % (A) 92 %; Non-African American GFR(CKD) 53 (>60 ml/min/1.73 sqM); Phosphorus 2.7 mg/dL (2.5-4.5); Platelet Count 141 k/uL (150-450); Potassium 3.5 mmol/L (3.5-5.1); RBC 2.71 m/uL (4.30-5.90); RDW 14.6 % (11.5-15.5); Sodium 147 mmol/L (137-145); Total Bilirubin 0.5 mg/dL (0.2-1.3); Total Protein 4.5 g/dL (6.3-8.2); WBC 8.1 k/uL (3.8-10.6)
[2021-06-08 10:22] LABS: INR 1.1 (<1.2); Partial Thromboplastin Time 34.3 sec (22.0-30.0); Prothrombin Time 11.6 sec (9.0-12.0)
[2021-06-08] MEDS: INSULIN ASPART (NovoLOG) 100 UNIT/ML VIAL SQ SCH ×3 (11:34→18:22)
[2021-06-08] MEDS: SODIUM CHLORIDE 0.9% 1,000 ML IV SCH ×2 (11:35→15:05)
[2021-06-08] MEDS: FUROSEMIDE 10 MG/ML 4 ML VIAL IV SCH (11:38)
[2021-06-08] MEDS: FERROUS SULFATE ORAL ELIXIR 300 MG/5 ML CUP PO SCH (11:41)
[2021-06-08] MEDS: FOLIC ACID 1 MG TAB PO SCH (11:41)
[2021-06-08] MEDS: AMIODARONE 200 MG TAB PO SCH ×2 (11:41→20:38)
[2021-06-08] MEDS: POTASSIUM BICARBONATE/CIT AC 20 MEQ TABLET.EFF PO SCH ×2 (11:41→20:38)
[2021-06-08 13:12] LABS: Glucose,Whole Blood 93 mg/dL (75-99)
[2021-06-08 18:01] LABS: Glucose,Whole Blood 102 mg/dL (75-99)
[2021-06-08] MEDS: HYDROCORTISONE 10 MG TAB PO SCH (20:39)
[2021-06-08] MEDS: OLANZapine ODT 10 MG TAB PO SCH (20:39)
[2021-06-08] MEDS: ATORVASTATIN 20 MG TAB PO SCH (20:39)
--- NOTE | 2021-06-08 22:01 | P.PN ---
Subjective Progress Note Date: 06/07/21 Principal diagnosis: COVID-19 pneumonia Interval history: Patient is a 70-year-old male presented to the hospital with acute respiratory failure in this but have a evidence of multifocal pneumonia secondary to COVID-19. Patient did have worsening of his respiratory status requiring intubation on 05/19/2021, patient has been extubated on 05/24/2021 however the patient did have worsening of his respiratory status and inability intubated night of 05/24/2021, patient is status post trach and PEG on 05/26/2021. The patient trach has been removed and the patient trach site has been decannulated by pulmonary as of 06/06/2021 On today's evaluation that is 06/07/2021, The patient continues to be afebrile, the patient is hemodynamically stable not requiring any pressor support, the patient is breathing comfortably on nasal cannula oxygen r, no vomiting or diarrhea has been reported by nursing staff patient remains to be lethargic and did not provide any history Objective - Vital Signs Vital signs: Vital Signs Temp 98.5 F 06/07/21 13:56 Pulse 84 06/07/21 16:39 Resp 18 06/07/21 13:56 BP 103/63 06/07/21 13:56 Pulse Ox 99 06/07/21 13:56 Intake & Output 06/06/21 06/07/21 06/07/21 18:59 06:59 18:59 Intake Total 1042 47 Output Total 3165 1300 Balance -2123 47 -1300 Weight 82.4 kg 72.5 kg Intake: IV 300 0.9 NaCl- 200 Meropenem 100 Tube Feeding 482 47 Other 260 Output: Urine 3165 1300 Other: Voiding Method Indwelling Catheter Indwelling Catheter Indwelling Catheter ABP, PAP, CO, CI - Last Documented Arterial Blood Pressure 113/56 - Exam General description is an elderly male lying in bed in no distress Respiratory system:Unlabored breathing, decreased intensity in breath sounds. Heart S1, S2. Regular rate and rhythm. Abdomen soft, no tenderness. Extremities: No edema feet - Labs CBC & Chem 7: 06/08/21 09:52 06/08/21 09:52 Labs: Abnormal Lab Results - Last 24 Hours (Table) 06/06/21 06/07/21 06/07/21 Range/Units 19:43 02:35 06:05 POC Glucose (mg/dL) 104 H 101 H 115 H (75-99) mg/dL 06/07/21 06/07/21 Range/Units 11:17 16:33 POC Glucose (mg/dL) 119 H 148 H (75-99) mg/dL Assessment and Plan (1) Aspiration pneumonia Current Visit: Yes Status: Acute Code(s): J69.0 - PNEUMONITIS DUE TO INHALATION OF FOOD AND VOMIT SNOMED Code(s): 980305385 (2) COVID-19 Current Visit: Yes Status: Acute Code(s): U07.1 - COVID-19 SNOMED Code(s): 109612919 Plan: 1-Patient with acute respiratory failure which is multifactorial in this patient with initial diagnosis of COVID-19 pneumonia in this patient did have significant worsening of his respiratory status requiring intubation and concern for possible aspiration pneumonitis, status post trach and peg, patient's sputum has been finalized with ESBL E. coli, the patient is currently covered with meropenem to continue to finish his two-week course of therapy and continue supportive care Time with Patient: Less than 30
--- NOTE | 2021-06-08 22:03 | P.PN ---
Subjective Progress Note Date: 06/08/21 Principal diagnosis: COVID-19 pneumonia Interval history: Patient is a 70-year-old male presented to the hospital with acute respiratory failure in this but have a evidence of multifocal pneumonia secondary to COVID-19. Patient did have worsening of his respiratory status requiring intubation on 05/19/2021, patient has been extubated on 05/24/2021 however the patient did have worsening of his respiratory status and inability intubated night of 05/24/2021, patient is status post trach and PEG on 05/26/2021. The patient trach has been removed and the patient trach site has been decannulated by pulmonary as of 06/06/2021, patient subsequently did have worsening of his respiratory status with reinsertion of trach and intubation on 06/08/2021 On today's evaluation that is 06/08/2021, The patient remains to be afebrile, the patient is hemodynamically stable not requiring any pressor support, the patient did have apneic episode requiring insertion of the tracheostomy and intubation currently on 50% of FiO2, no significant purulent secretion through ED diarrhea or any changes reported by the nursing staff Objective - Vital Signs Vital signs: Vital Signs Temp 99.0 F 06/08/21 20:00 Pulse 59 L 06/08/21 20:00 Resp 21 06/08/21 20:00 BP 85/50 06/08/21 20:00 Pulse Ox 97 06/08/21 20:00 Intake & Output 06/08/21 06/08/21 06/09/21 06:59 18:59 06:59 Intake Total 1270 476 Output Total 1400 910 275 Balance -1400 360 201 Weight 70.5 kg Intake: IV 741 258 0.9 NaCl- 675 225 Meropenem 66 33 Tube Feeding 329 188 Other 200 30 Output: Urine 1400 910 275 Other: Voiding Method Indwelling Catheter Indwelling Catheter ABP, PAP, CO, CI - Last Documented Arterial Blood Pressure 113/56 - Exam General description is an elderly male lying in bed intubated on the vent Respiratory system:Unlabored breathing, decreased intensity in breath sounds. Heart S1, S2. Regular rate and rhythm. Abdomen soft, no tenderness. Extremities: No edema feet - Labs CBC & Chem 7: 06/08/21 09:52 06/08/21 09:52 Labs: Abnormal Lab Results - Last 24 Hours (Table) 06/08/21 06/08/21 06/08/21 Range/Units 00:08 06:18 09:45 RBC (4.30-5.90) m/uL Hgb (13.0-17.5) gm/dL Hct (39.0-53.0) % Plt Count (150-450) k/uL Lymphocytes # (1.0-4.8) k/uL APTT (22.0-30.0) sec ABG pCO2 57 H (35-45) mmHg ABG pO2 81 L (83-108) mmHg ABG HCO3 39 H (21-25) mmol/L ABG Total CO2 41 H (19-24) mmol/L ABG O2 Saturation 97.5 H (94-97) % Sodium (137-145) mmol/L Chloride (98-107) mmol/L Carbon Dioxide (22-30) mmol/L BUN (9-20) mg/dL Creatinine (0.66-1.25) mg/dL Glucose (74-99) mg/dL POC Glucose (mg/dL) 105 H 114 H (75-99) mg/dL Calcium (8.4-10.2) mg/dL Total Protein (6.3-8.2) g/dL Albumin (3.5-5.0) g/dL 06/08/21 06/08/21 06/08/21 Range/Units 09:52 09:52 09:52 RBC 2.71 L (4.30-5.90) m/uL Hgb 8.7 L (13.0-17.5) gm/dL Hct 26.8 L (39.0-53.0) % Plt Count 141 L (150-450) k/uL Lymphocytes # 0.2 L (1.0-4.8) k/uL APTT 34.3 H (22.0-30.0) sec ABG pCO2 (35-45) mmHg ABG pO2 (83-108) mmHg ABG HCO3 (21-25) mmol/L ABG Total CO2 (19-24) mmol/L ABG O2 Saturation (94-97) % Sodium 147 H (137-145) mmol/L Chloride 111 H (98-107) mmol/L Carbon Dioxide 40 H (22-30) mmol/L BUN 43 H (9-20) mg/dL Creatinine 1.33 H (0.66-1.25) mg/dL Glucose 104 H (74-99) mg/dL POC Glucose (mg/dL) (75-99) mg/dL Calcium 8.0 L (8.4-10.2) mg/dL Total Protein 4.5 L (6.3-8.2) g/dL Albumin 2.0 L (3.5-5.0) g/dL 06/08/21 06/08/21 Range/Units 09:58 18:00 RBC (4.30-5.90) m/uL Hgb (13.0-17.5) gm/dL Hct (39.0-53.0) % Plt Count (150-450) k/uL Lymphocytes # (1.0-4.8) k/uL APTT (22.0-30.0) sec ABG pCO2 (35-45) mmHg ABG pO2 (83-108) mmHg ABG HCO3 (21-25) mmol/L ABG Total CO2 (19-24) mmol/L ABG O2 Saturation (94-97) % Sodium (137-145) mmol/L Chloride (98-107) mmol/L Carbon Dioxide (22-30) mmol/L BUN (9-20) mg/dL Creatinine (0.66-1.25) mg/dL Glucose (74-99) mg/dL POC Glucose (mg/dL) 101 H 102 H (75-99) mg/dL Calcium (8.4-10.2) mg/dL Total Protein (6.3-8.2) g/dL Albumin (3.5-5.0) g/dL Assessment and Plan (1) Aspiration pneumonia Current Visit: Yes Status: Acute Code(s): J69.0 - PNEUMONITIS DUE TO INHALATION OF FOOD AND VOMIT SNOMED Code(s): 816556620 (2) COVID-19 Current Visit: Yes Status: Acute Code(s): U07.1 - COVID-19 SNOMED Code(s): 063579494 Plan: 1-Patient with acute respiratory failure which is multifactorial in this patient with initial diagnosis of COVID-19 pneumonia in this patient did have significant worsening of his respiratory status requiring intubation and concern for possible aspiration pneumonitis, status post trach and peg, patient's sp utum has been finalized with ESBL E. coli, the patient did have slight worsening of his respiratory status requiring reintubation, patient to continue with meropenem while waiting for his condition stabilized Time with Patient: Less than 30
--- NOTE | 2021-06-08 23:16 | P.PN ---
Subjective Progress Note Date: 06/06/21 This is a 70-year-old male who was recently admitted with change in mental status and fall and also shortness of breath and acute COVID-19 pneumonia and being closely monitored. Patient was continued on high flow oxygen although respiratory status continued to deteriorate and an A team was called. Patient was brought to the ICU for close monitoring and x-ray showed some bilateral lower lobe pneumonia which appears unchanged compared to recent exam with no obvious heart failure. Patient was placed on mechanical vent and intubated and sedated and is being closely monitored. Multiple medical consultations including pulmonary and infectious disease following closely. 05/20/2021 Patient is seen in follow-up activity is to be closely monitored in the ICU. Blood pressure and heart rate has been extremely variable and patient is maintained on D10 in water along with norepinephrine and will continue. Pulmonary and infectious disease following closely. Patient continues with worsening kidney functions nephrology consulted and patient is being given a liter bolus for hypotension and repeat sodium level ordered. Patient also continues on Zosyn and ID following closely. Patient continues with low blood sugar readings as well and we'll continue D10 and close glucose monitoring. Chest x-ray shows some improvement in bibasilar infiltrates more so on the right and possibly developing small right pleural effusion. 05/21/2021 Patient is seen and evaluated this morning continues to be in the ICU with multiple medical consultations following. Patient is continued on IV antibiotics with ID following. Cultures continue to be negative and WBC is 8.5. Patient did have low grade temp today. Patient continues on mechanical vent and sedated. Chest xray similar to previous exam and will continue to monitor. Prognosis remains guarded. Patient also continued on norepinephrine. 05/22/2021 Patient is seen and evaluated today continues to be on mechanical vent with an FiO2 of 40% PEEP is 5. Patient continuing with weaning trials and assist mode on mechanical vent although patient continues to not follow commands per nursing staff. Per pulmonary cardroom supervisor continued attempts at weaning. Chest x-ray shows chronic emphysematous changes and pulmonary fibrosis with moderate bilateral pleural effusions and bilateral multifocal increased opacification consistent with COVID-19 infection are all redemonstrated with no significant change from yesterday. Sputum culture finalized showing Romelia species not albicans, glabrata along with Romelia albicans and infectious disease is foll owing. Patient continues on IV antibiotics in the form of Zosyn. Patient is currently off norepinephrine and receiving Solu-Cortef along with valproic acid and Depakote. Patient is continued on Lovenox for DVT prophylaxis. Patient also continues on D5 in water at 100 mL per hour. Blood gases are improving and pulmonary discussing possible extubation. 05/23/2021 Patient is seen this morning continues to be on mechanical vent with an FiO2 of 40 and a PEEP of 5 with continued weaning trials. Patient is off sedation and does open eyes to verbal stimuli although does not follow commands. Chest x-ray today shows chronic emphysematous and pulmonary fibrotic changes with small size bilateral pleural effusions and bilateral multifocal increased opacification is consistent with COVID-19 infection are again redemonstrated with no significant change from previous. General surgery consulted for possible trach and peg tube placement. 05/24/2021 Patient with spontaneous eye opening during assessment, eyes are tracking, however when asked to squeeze fingers patient unable to do so and did not wiggle toes when asked. He was not responsive to commands or yes or no questions. Continues in the ICU on 5L NC with an oxygen saturation of 91%. He is afebrile, Heart rate is in the 40-50's dropping into the mid 30's. Unclear whether patient is in a heart block, nurse reports HR of 30's seems to be when he is sleeping. EKG will try to be obtained when he is in the 30's. Respirations are 23, blood pressure 135/55. Chest xray today remains unchanged. Possible trach and PEG tube wednesday if needed. Labs today show WBC 7.0, hgb 9.1, D-dimer 0.86, sodium 142, potassium 3.6, BUN 33, creatinine 1.28, glucose in the 130s, calcium 7.8, CRP 1.7, total protein 4.6, albumin 2.0. Multiple consultations. Prognosis remains guarded. 05/25/2021 Throughout the evening patient desaturated and his blood pressure was dropping while on the levophed and his heart rate was increasing and then once he was off the levophed his heart rate was increasing and his blood pressure was dropping. Patient was reintubated with an Fi02 of 60%. Blood gases at the time showed a pCO2 of greater than 120, pH 6.97, pO2 170, total oxygen saturation 98. Oxygen saturations 98%, he is afebrile, pulse rate 43 appears sinus bradycardia on EKG that was obtained midmorning. Blood pressure 135/75. Blood gases have improved with a pH now 7.30, pCO2 57, pO2 57, HCO3 28, total CO2 30 and O2 saturation 87.5. Sodium 140, potassium 3.7, chloride 109, CO2 28, BUN 27, creatinine 1.36, blood glucose 120, calcium 8.1, AST 27, ALT 19, LDH 585, CRP 1.9. Chest x-ray today shows as based consolidation atelectasis and volume loss in the right hemithorax which is slightly compared to exam yesterday. Has pulmonary interstitial edema on the left side without change. Plan is for a PEG, trach tomorrow. Cardiology was consulted and started patient on a dopamine infusion. Patient is on D5 water at 75 mL per hour, levophed infusing, propofol, on IV Zosyn and IV valproic acid. Labs initial white count 13, hemoglobin 10.7, d- dimer 1.84. 05/26/2021 Patient is seen today in follow up in the ICU being closely monitored. Multiple medical consultations following along with general surgery and is scheduled for peg and trach placement today. Tube feedings on hold. Patient continues on mechanical vent and FI02 is 50% peep is 5. Chest xray today shows COPD right greater than left with covid infiltrates and aeration improving now on the right. Potassium is 3.2 and being replaced. Lovenox on hold for the procedure as well. 05/27/2021 Patient is seen in follow-up in the ICU with multiple medical consultations following. Patient is status post PEG and trach placement and will be initiating tube feeds once cleared by surgery. Sputum culture finalized showing E. coli with ESBL and resistance and infectious disease is following. Patient was continued on dopamine along with Levophed and attempting to wean per nursing staff. Patient also continues in D5 water with nephrology following closely. Patient is on IV Zosyn along with nystatin and will continue. Chest x-ray today shows stable portable chest with no evidence of pneumothorax and no change in bibasilar opacities. Patient continues on propofol and FiO2 is 50% with a PEEP of 5. Potassium found a 3.2 and replaced and will repeat labs. 05/28/2021 Patient is seen in follow-up this morning continues to be in the ICU with multiple medical consultations following. Patient is currently continued on mechanical vent via tracheostomy and FiO2 is 40% with a PEEP of 5. Patient is status post peg and trach and surgery following. Patient resumed on lovenox and tube feedings. Tolerating tube feedings thus far. Patient continues on levophed and off dopamine. Patient was on Midodrine and will resume along with his olanzapine and continue to monitor closely. Patient is maintained on Meropenem and ID following closely. Patient also continues on solu-cortef and d5 in water with nephrology following as well. 05/29/2021 Patient is seen and evaluated in follow-up today continues to be in the ICU under close observation with multiple medical consultations following. Patient continues on mechanical ventilation via tracheostomy and FiO2 is 40% and PEEP is 5. Chest xray today shows COPD with continued peripheral and basilar covid infiltrates, similar to slightly worsened from yesterday. Patient continues with sedation holidays to assess mentation although continues to not follow commands appropriately. Patient continues on Levophed as well. IV merrem to continue. 05/30/2021 Patient is seen this morning in the ICU with multiple medical consultations following. Patient continues on vent with an FI02 of 40% and peep is 5. Chest x-ray today shows a curvilinear edge that is now seen at the bilateral apices that could be projectional artifact and recommended follow-up with improved positioning to exclude trace of new biapical pneumothoraces, COPD, increase in small to moderate bilateral pleural effusions with continued patchy mid and lower lung Covid infiltrates. Patient continues on sedation and staff developer working on weaning. Patient will open eyes although not follow any commands. Continues on low dose levophed 05/31/2021 Patient is in the MICU. Admitted to hospital due to acute COVID-19 pneumonia. Currently on mechanical ventilator via tracheostomy tube. Assist-control with respiratory rate 30, tidal volume 350, FiO2 50% and PEEP of 5. Remains on propofol and Nimbex. Currently on D5 water at 75 cc/h. Patient is off pressor support. Patient is being continued on antibiotics in the form of meropenem. Sputum cultures growing Romelia and most recently E. coli. ID is on board. Chest x- ray showed bilateral lung infiltrates with suggestion of mild improvement in the left midlung zone. Laboratory data showed WBC 10.6 hemoglobin 9.3 and platelets 579 Sodium 139 potassium 4.0 chloride 101 bicarb is 28 BUN 23 and creatinine 1.46 albumin 2.0 Patient is on hydrocortisone her milligrams IV every 6 hourly and also on midodr ine. 06/01/2021 Patient is in MICU. Remains on ventilator via tracheostomy tube. FiO2 40% PEEP of 5. Not requiring any pressor support. Patient is being tried on IV hydrocortisone and midodrine. Currently on tube feedings. Chest x-ray showed bilateral opacities in the some interstitial infiltrates in the midlung zones. Upper lungs remain well aerated. No significant change. No pneumothorax. Patient sputum cultures showed E. coli. Repeat cultures have been negative patient remains on antibiotics in the form of meropenem. ID and pulmonary is on board. Laboratory data showed WC 5.6 hemoglobin 9.3 and platelets 462 sodium 137 potassium 4.0 chloride 110 bicarb is 28 BUN 27 creatinine 1.42 and blood sugar 146 ID nephrology and pulmonary is on board. 06/06/2021. Patient is currently in the intensive care unit. Tolerated trach collar with 40% FiO2 for about 12 hours yesterday. Patient was also placed in the chair via mechanical lift. Patient was placed back on assist control in the night. Patient has been afebrile. Patient is being current on antibiotics, meropenem due to E. coli ESBL pneumonia. Patient has been afebrile. Does not require any pressor support at this time. Otherwise patient is also on hydrocortisone tapering down to 50 mg every 12. Patient still remains confused and could not communicate. Patient remains sinus rhythm. Continued on oral amiodarone and also Eliquis twice daily. Chest x-ray showed similar COPD with mild mid and lower lung infiltrates and small effusions. Patient is tolerating tube feedings. Bilateral lower extremity edema is much improved. Laboratory data showed WBC 5.8 hemoglobin 9.5 platelets 274 sodium 143 potassium 3.6 chloride 104 bicarb is 40 BUN 49 creatinine 1.35 calcium 7.4 and albumin 2.4. Current medications reviewed. Review of systems: Unable to obtain as patient is mechanically intubated and sedated Objective - Vital Signs Vital signs: Vital Signs Temp 98.6 F 06/06/21 12:00 Pulse 72 06/06/21 12:00 Resp 22 06/06/21 12:00 BP 101/58 06/06/21 12:00 Pulse Ox 97 06/06/21 12:04 Intake & Output 06/05/21 06/06/21 06/06/21 18:59 06:59 18:59 Intake Total 996 850 597 Output Total 4578 735 6562 Balance -459 135 -1588 Weight 82.4 kg 82.4 kg Intake: IV 346 320 120 0.9 NaCl- 120 220 120 Meropenem 199 100 pressure bag 27 Tube Feeding 440 440 247 Other 210 90 230 Output: Urine 3478 517 4144 Other: Voiding Method Indwelling Catheter Indwelling Catheter Indwelling Catheter ABP, PAP, CO, CI - Last Documented Arterial Blood Pressure 113/56 - Exam Physical Exam: Gen: this is a 70-year-old male currently sedated and intubated. 40% mechanical ventilation with a PEEP of 5 HEENT: Head is atraumatic, normocephalic. Pupils equal, round. Sclerae is anicteric. NECK: Supple. No JVD. No lymphadenopathy. No thyromegaly. LUNGS: Diminished breath sounds bilaterally with coarse rhonchi and crackles noted. No intercostal retractions. HEART: S1, S2 are muffled ABDOMEN: Soft. Bowel sounds are present. No masses. No tenderness. EXTREMITIES: No pedal edema. No calf tenderness. NEUROLOGICAL: Patient is currently intubated and sedated - Labs CBC & Chem 7: 06/08/21 09:52 06/08/21 09:52 Labs: Abnormal Lab Results - Last 24 Hours (Table) 06/05/21 06/05/21 06/06/21 Range/Units 17:45 23:52 05:20 RBC 2.97 L (4.30-5.90) m/uL Hgb 9.5 L (13.0-17.5) gm/dL Hct 28.6 L (39.0-53.0) % Lymphocytes # 0.4 L (1.0-4.8) k/uL Potassium 3.3 L (3.5-5.1) mmol/L Carbon Dioxide (22-30) mmol/L BUN (9-20) mg/dL Creatinine (0.66-1.25) mg/dL Glucose (74-99) mg/dL POC Glucose (mg/dL) 108 H (75-99) mg/dL Calcium (8.4-10.2) mg/dL C-Reactive Protein (<1.0) mg/dL Total Protein (6.3-8.2) g/dL Albumin (3.5-5.0) g/dL 06/06/21 06/06/21 06/06/21 Range/Units 05:20 05:21 11:56 RBC (4.30-5.90) m/uL Hgb (13.0-17.5) gm/dL Hct (39.0-53.0) % Lymphocytes # (1.0-4.8) k/uL Potassium (3.5-5.1) mmol/L Carbon Dioxide 40 H (22-30) mmol/L BUN 49 H (9-20) mg/dL Creatinine 1.35 H (0.66-1.25) mg/dL Glucose 110 H (74-99) mg/dL POC Glucose (mg/dL) 110 H 107 H (75-99) mg/dL Calcium 7.8 L (8.4-10.2) mg/dL C-Reactive Protein 2.2 H (<1.0) mg/dL Total Protein 4.4 L (6.3-8.2) g/dL Albumin 2.0 L (3.5-5.0) g/dL Assessment and Plan Assessment: Acute COVID-19 infection with acute COVID-19 bilateral interstitial pneumonia, right more than left with acute hypoxic respiratory failure, now requiring mechanical ventilation with extubation on 05/24/2021, and re-intubation on 05/25/2021 status post peg tube and tracheostomy placement, FiO2 40% with a PEEP of 5 Acute kidney injury secondary to acute tubular necrosis from septic shock Chronic kidney disease stage III secondary to nephrosclerosis Hypoglycemia, improved Change in mental status, metabolic encephalopathy, multifactorial Falling, gait dysfunction Anemia, normocytic anemia of undetermined significance Hypernatremia from poor oral intake Hyperkalemia secondary to acute kidney injury, resolved Elevated d-dimer history of coronary artery disease history of chronic obstructive pulmonary disease Gastroesophageal reflux disease history of bipolar, schizoaffective disorder and schizophrenia History of nicotine dependence Severe protein calorie malnutrition with a BMI of 19.1 No code Plan: Recommend to continue with current medications and follow along closely with multiple medical consultations. Prognosis remains extremely guarded with multiple complex medical issues noted. Patient is status post peg and trach placement and continues on mechanical vent. Continued attempts of sedation holiday to assess mentation and weaning. Currentl off propofol at the moment. Not tolerating extremely well. Has Dilaudid as well. tube feedings being tolerated. Recommend continue with current medications and patient has been maintained on IV antibiotics with infectious disease following.. Patient will continue on merrem . Chest x-ray reviewed as mentioned above. Recommend repeat labs in the morning along with chest xray. IV fluids discontinued and giving IV lasix. Significant scrotal and penis swelling noted. Nephrology following as well. Again due to multiple complex medical issues prognosis is quite guarded. Time with Patient: Greater than 30
--- NOTE | 2021-06-08 23:18 | P.PN ---
Subjective Progress Note Date: 06/07/21 This is a 70-year-old male who was recently admitted with change in mental status and fall and also shortness of breath and acute COVID-19 pneumonia and being closely monitored. Patient was continued on high flow oxygen although respiratory status continued to deteriorate and an A team was called. Patient was brought to the ICU for close monitoring and x-ray showed some bilateral lower lobe pneumonia which appears unchanged compared to recent exam with no obvious heart failure. Patient was placed on mechanical vent and intubated and sedated and is being closely monitored. Multiple medical consultations including pulmonary and infectious disease following closely. 05/20/2021 Patient is seen in follow-up activity is to be closely monitored in the ICU. Blood pressure and heart rate has been extremely variable and patient is maintained on D10 in water along with norepinephrine and will continue. Pulmonary and infectious disease following closely. Patient continues with worsening kidney functions nephrology consulted and patient is being given a liter bolus for hypotension and repeat sodium level ordered. Patient also continues on Zosyn and ID following closely. Patient continues with low blood sugar readings as well and we'll continue D10 and close glucose monitoring. Chest x-ray shows some improvement in bibasilar infiltrates more so on the right and possibly developing small right pleural effusion. 05/21/2021 Patient is seen and evaluated this morning continues to be in the ICU with multiple medical consultations following. Patient is continued on IV antibiotics with ID following. Cultures continue to be negative and WBC is 8.5. Patient did have low grade temp today. Patient continues on mechanical vent and sedated. Chest xray similar to previous exam and will continue to monitor. Prognosis remains guarded. Patient also continued on norepinephrine. 05/22/2021 Patient is seen and evaluated today continues to be on mechanical vent with an FiO2 of 40% PEEP is 5. Patient continuing with weaning trials and assist mode on mechanical vent although patient continues to not follow commands per nursing staff. Per pulmonary pier master assistant continued attempts at weaning. Chest x-ray shows chronic emphysematous changes and pulmonary fibrosis with moderate bilateral pleural effusions and bilateral multifocal increased opacification consistent with COVID-19 infection are all redemonstrated with no significant change from yesterday. Sputum culture finalized showing Romelia species not albicans, glabrata along with Romelia albicans and infectious disease is foll owing. Patient continues on IV antibiotics in the form of Zosyn. Patient is currently off norepinephrine and receiving Solu-Cortef along with valproic acid and Depakote. Patient is continued on Lovenox for DVT prophylaxis. Patient also continues on D5 in water at 100 mL per hour. Blood gases are improving and pulmonary discussing possible extubation. 05/23/2021 Patient is seen this morning continues to be on mechanical vent with an FiO2 of 40 and a PEEP of 5 with continued weaning trials. Patient is off sedation and does open eyes to verbal stimuli although does not follow commands. Chest x-ray today shows chronic emphysematous and pulmonary fibrotic changes with small size bilateral pleural effusions and bilateral multifocal increased opacification is consistent with COVID-19 infection are again redemonstrated with no significant change from previous. General surgery consulted for possible trach and peg tube placement. 05/24/2021 Patient with spontaneous eye opening during assessment, eyes are tracking, however when asked to squeeze fingers patient unable to do so and did not wiggle toes when asked. He was not responsive to commands or yes or no questions. Continues in the ICU on 5L NC with an oxygen saturation of 91%. He is afebrile, Heart rate is in the 40-50's dropping into the mid 30's. Unclear whether patient is in a heart block, nurse reports HR of 30's seems to be when he is sleeping. EKG will try to be obtained when he is in the 30's. Respirations are 23, blood pressure 135/55. Chest xray today remains unchanged. Possible trach and PEG tube wednesday if needed. Labs today show WBC 7.0, hgb 9.1, D-dimer 0.86, sodium 142, potassium 3.6, BUN 33, creatinine 1.28, glucose in the 130s, calcium 7.8, CRP 1.7, total protein 4.6, albumin 2.0. Multiple consultations. Prognosis remains guarded. 05/25/2021 Throughout the evening patient desaturated and his blood pressure was dropping while on the levophed and his heart rate was increasing and then once he was off the levophed his heart rate was increasing and his blood pressure was dropping. Patient was reintubated with an Fi02 of 60%. Blood gases at the time showed a pCO2 of greater than 120, pH 6.97, pO2 170, total oxygen saturation 98. Oxygen saturations 98%, he is afebrile, pulse rate 43 appears sinus bradycardia on EKG that was obtained midmorning. Blood pressure 135/75. Blood gases have improved with a pH now 7.30, pCO2 57, pO2 57, HCO3 28, total CO2 30 and O2 saturation 87.5. Sodium 140, potassium 3.7, chloride 109, CO2 28, BUN 27, creatinine 1.36, blood glucose 120, calcium 8.1, AST 27, ALT 19, LDH 585, CRP 1.9. Chest x-ray today shows as based consolidation atelectasis and volume loss in the right hemithorax which is slightly compared to exam yesterday. Has pulmonary interstitial edema on the left side without change. Plan is for a PEG, trach tomorrow. Cardiology was consulted and started patient on a dopamine infusion. Patient is on D5 water at 75 mL per hour, levophed infusing, propofol, on IV Zosyn and IV valproic acid. Labs initial white count 13, hemoglobin 10.7, d- dimer 1.84. 05/26/2021 Patient is seen today in follow up in the ICU being closely monitored. Multiple medical consultations following along with general surgery and is scheduled for peg and trach placement today. Tube feedings on hold. Patient continues on mechanical vent and FI02 is 50% peep is 5. Chest xray today shows COPD right greater than left with covid infiltrates and aeration improving now on the right. Potassium is 3.2 and being replaced. Lovenox on hold for the procedure as well. 05/27/2021 Patient is seen in follow-up in the ICU with multiple medical consultations following. Patient is status post PEG and trach placement and will be initiating tube feeds once cleared by surgery. Sputum culture finalized showing E. coli with ESBL and resistance and infectious disease is following. Patient was continued on dopamine along with Levophed and attempting to wean per nursing staff. Patient also continues in D5 water with nephrology following closely. Patient is on IV Zosyn along with nystatin and will continue. Chest x-ray today shows stable portable chest with no evidence of pneumothorax and no change in bibasilar opacities. Patient continues on propofol and FiO2 is 50% with a PEEP of 5. Potassium found a 3.2 and replaced and will repeat labs. 05/28/2021 Patient is seen in follow-up this morning continues to be in the ICU with multiple medical consultations following. Patient is currently continued on mechanical vent via tracheostomy and FiO2 is 40% with a PEEP of 5. Patient is status post peg and trach and surgery following. Patient resumed on lovenox and tube feedings. Tolerating tube feedings thus far. Patient continues on levophed and off dopamine. Patient was on Midodrine and will resume along with his olanzapine and continue to monitor closely. Patient is maintained on Meropenem and ID following closely. Patient also continues on solu-cortef and d5 in water with nephrology following as well. 05/29/2021 Patient is seen and evaluated in follow-up today continues to be in the ICU under close observation with multiple medical consultations following. Patient continues on mechanical ventilation via tracheostomy and FiO2 is 40% and PEEP is 5. Chest xray today shows COPD with continued peripheral and basilar covid infiltrates, similar to slightly worsened from yesterday. Patient continues with sedation holidays to assess mentation although continues to not follow commands appropriately. Patient continues on Levophed as well. IV merrem to continue. 05/30/2021 Patient is seen this morning in the ICU with multiple medical consultations following. Patient continues on vent with an FI02 of 40% and peep is 5. Chest x-ray today shows a curvilinear edge that is now seen at the bilateral apices that could be projectional artifact and recommended follow-up with improved positioning to exclude trace of new biapical pneumothoraces, COPD, increase in small to moderate bilateral pleural effusions with continued patchy mid and lower lung Covid infiltrates. Patient continues on sedation and staffing analyst working on weaning. Patient will open eyes although not follow any commands. Continues on low dose levophed 05/31/2021 Patient is in the MICU. Admitted to hospital due to acute COVID-19 pneumonia. Currently on mechanical ventilator via tracheostomy tube. Assist-control with respiratory rate 30, tidal volume 350, FiO2 50% and PEEP of 5. Remains on propofol and Nimbex. Currently on D5 water at 75 cc/h. Patient is off pressor support. Patient is being continued on antibiotics in the form of meropenem. Sputum cultures growing Romelia and most recently E. coli. ID is on board. Chest x- ray showed bilateral lung infiltrates with suggestion of mild improvement in the left midlung zone. Laboratory data showed WBC 10.6 hemoglobin 9.3 and platelets 579 Sodium 139 potassium 4.0 chloride 101 bicarb is 28 BUN 23 and creatinine 1.46 albumin 2.0 Patient is on hydrocortisone her milligrams IV every 6 hourly and also on midodr ine. 06/01/2021 Patient is in MICU. Remains on ventilator via tracheostomy tube. FiO2 40% PEEP of 5. Not requiring any pressor support. Patient is being tried on IV hydrocortisone and midodrine. Currently on tube feedings. Chest x-ray showed bilateral opacities in the some interstitial infiltrates in the midlung zones. Upper lungs remain well aerated. No significant change. No pneumothorax. Patient sputum cultures showed E. coli. Repeat cultures have been negative patient remains on antibiotics in the form of meropenem. ID and pulmonary is on board. Laboratory data showed WC 5.6 hemoglobin 9.3 and platelets 462 sodium 137 potassium 4.0 chloride 110 bicarb is 28 BUN 27 creatinine 1.42 and blood sugar 146 ID nephrology and pulmonary is on board. 06/06/2021. Patient is currently in the intensive care unit. Tolerated trach collar with 40% FiO2 for about 12 hours yesterday. Patient was also placed in the chair via mechanical lift. Patient was placed back on assist control in the night. Patient has been afebrile. Patient is being current on antibiotics, meropenem due to E. coli ESBL pneumonia. Patient has been afebrile. Does not require any pressor support at this time. Otherwise patient is also on hydrocortisone tapering down to 50 mg every 12. Patient still remains confused and could not communicate. Patient remains sinus rhythm. Continued on oral amiodarone and also Eliquis twice daily. Chest x-ray showed similar COPD with mild mid and lower lung infiltrates and small effusions. Patient is tolerating tube feedings. Bilateral lower extremity edema is much improved. Laboratory data showed WBC 5.8 hemoglobin 9.5 platelets 274 sodium 143 potassium 3.6 chloride 104 bicarb is 40 BUN 49 creatinine 1.35 calcium 7.4 and albumin 2.4. 06/07/2021 Patient was transferred to psych care unit. Patient was extubated and decannulated. Patient was having significant respiratory distress morning and was suctioned. Currently requiring high flow oxygen at 8 L. Currently resting in the bed comfortably. Currently hemodynamically stable. Able to tolerate tube feeding. Patient is being current meropenem for ESBL pneumonia E. coli. Currently patient is also on anticoagulation with Eliquis. ID and pulmonary is on board. Current medications reviewed. Review of systems: Unable to obtain as patient is mechanically intubated and sedated Objective - Vital Signs Vital signs: Vital Signs Temp 98.5 F 06/07/21 13:56 Pulse 74 06/07/21 13:56 Resp 18 06/07/21 13:56 BP 103/63 06/07/21 13:56 Pulse Ox 99 06/07/21 13:56 Intake & Output 06/06/21 06/07/21 06/07/21 18:59 06:59 18:59 Intake Total 1042 47 Output Total 3165 1300 Balance -2123 47 -1300 Weight 82.4 kg 72.5 kg Intake: IV 300 0.9 NaCl- 200 Meropenem 100 Tube Feeding 482 47 Other 260 Output: Urine 3165 1300 Other: Voiding Method Indwelling Catheter Indwelling Catheter Indwelling Catheter ABP, PAP, CO, CI - Last Documented Arterial Blood Pressure 113/56 - Exam Physical Exam: Gen: this is a 70-year-old male currently sedated and intubated. 40% mechanical ventilation with a PEEP of 5 HEENT: Head is atraumatic, normocephalic. Pupils equal, round. Sclerae is anicteric. NECK: Supple. No JVD. No lymphadenopathy. No thyromegaly. LUNGS: Diminished breath sounds bilaterally with coarse rhonchi and crackles noted. No intercostal retractions. HEART: S1, S2 are muffled ABDOMEN: Soft. Bowel sounds are present. No masses. No tenderness. EXTREMITIES: No pedal edema. No calf tenderness. NEUROLOGICAL: Patient is currently intubated and sedated - Labs CBC & Chem 7: 06/08/21 09:52 06/08/21 09:52 Labs: Abnormal Lab Results - Last 24 Hours (Table) 06/06/21 06/07/21 06/07/21 Range/Units 19:43 02:35 06:05 POC Glucose (mg/dL) 104 H 101 H 115 H (75-99) mg/dL 06/07/21 Range/Units 11:17 POC Glucose (mg/dL) 119 H (75-99) mg/dL Assessment and Plan Assessment: Acute COVID-19 infection with acute COVID-19 bilateral interstitial pneumonia, right more than left with acute hypoxic respiratory failure, now requiring mechanical ventilation with extubation on 05/24/2021, and re-intubation on 05/25/2021 status post peg tube and tracheostomy placement, FiO2 40% with a PEEP of 5 Acute kidney injury secondary to acute tubular necrosis from septic shock Chronic kidney disease stage III secondary to nephrosclerosis Hypoglycemia, improved Change in mental status, metabolic encephalopathy, multifactorial Falling, gait dysfunction Anemia, normocytic anemia of undetermined significance Hypernatremia from poor oral intake Hyperkalemia secondary to acute kidney injury, resolved Elevated d-dimer history of coronary artery disease history of chronic obstructive pulmonary disease Gastroesophageal reflux disease history of bipolar, schizoaffective disorder and schizophrenia History of nicotine dependence Severe protein calorie malnutrition with a BMI of 19.1 No code Plan: Recommend to continue with current medications and follow along closely with multiple medical consultations. Prognosis remains extremely guarded with multiple complex medical issues noted. Patient is status post peg and trach placement and continues on mechanical vent. Continued attempts of sedation holiday to assess mentation and weaning. Currentl off propofol at the moment. Not tolerating extremely well. Has Dilaudid as well. tube feedings being tolerated. Recommend continue with current medications and patient has been maintained on IV antibiotics with infectious disease following.. Patient will continue on merrem . Chest x-ray reviewed as mentioned above. Recommend repeat labs in the morning along with chest xray. IV fluids discontinued and was given IV lasix. Significant scrotal and penis swelling noted. Nephrology following as well. Again due to multiple complex medical issues prognosis is quite guarded. Time with Patient: Greater than 30
--- NOTE | 2021-06-08 23:23 | P.PN ---
Subjective Progress Note Date: 06/08/21 This is a 70-year-old male who was recently admitted with change in mental status and fall and also shortness of breath and acute COVID-19 pneumonia and being closely monitored. Patient was continued on high flow oxygen although respiratory status continued to deteriorate and an A team was called. Patient was brought to the ICU for close monitoring and x-ray showed some bilateral lower lobe pneumonia which appears unchanged compared to recent exam with no obvious heart failure. Patient was placed on mechanical vent and intubated and sedated and is being closely monitored. Multiple medical consultations including pulmonary and infectious disease following closely. 05/20/2021 Patient is seen in follow-up activity is to be closely monitored in the ICU. Blood pressure and heart rate has been extremely variable and patient is maintained on D10 in water along with norepinephrine and will continue. Pulmonary and infectious disease following closely. Patient continues with worsening kidney functions nephrology consulted and patient is being given a liter bolus for hypotension and repeat sodium level ordered. Patient also continues on Zosyn and ID following closely. Patient continues with low blood sugar readings as well and we'll continue D10 and close glucose monitoring. Chest x-ray shows some improvement in bibasilar infiltrates more so on the right and possibly developing small right pleural effusion. 05/21/2021 Patient is seen and evaluated this morning continues to be in the ICU with multiple medical consultations following. Patient is continued on IV antibiotics with ID following. Cultures continue to be negative and WBC is 8.5. Patient did have low grade temp today. Patient continues on mechanical vent and sedated. Chest xray similar to previous exam and will continue to monitor. Prognosis remains guarded. Patient also continued on norepinephrine. 05/22/2021 Patient is seen and evaluated today continues to be on mechanical vent with an FiO2 of 40% PEEP is 5. Patient continuing with weaning trials and assist mode on mechanical vent although patient continues to not follow commands per nursing staff. Per pulmonary movement assembler continued attempts at weaning. Chest x-ray shows chronic emphysematous changes and pulmonary fibrosis with moderate bilateral pleural effusions and bilateral multifocal increased opacification consistent with COVID-19 infection are all redemonstrated with no significant change from yesterday. Sputum culture finalized showing Romelia species not albicans, glabrata along with Rmoelia albicans and infectious disease is foll owing. Patient continues on IV antibiotics in the form of Zosyn. Patient is currently off norepinephrine and receiving Solu-Cortef along with valproic acid and Depakote. Patient is continued on Lovenox for DVT prophylaxis. Patient also continues on D5 in water at 100 mL per hour. Blood gases are improving and pulmonary discussing possible extubation. 05/23/2021 Patient is seen this morning continues to be on mechanical vent with an FiO2 of 40 and a PEEP of 5 with continued weaning trials. Patient is off sedation and does open eyes to verbal stimuli although does not follow commands. Chest x-ray today shows chronic emphysematous and pulmonary fibrotic changes with small size bilateral pleural effusions and bilateral multifocal increased opacification is consistent with COVID-19 infection are again redemonstrated with no significant change from previous. General surgery consulted for possible trach and peg tube placement. 05/24/2021 Patient with spontaneous eye opening during assessment, eyes are tracking, however when asked to squeeze fingers patient unable to do so and did not wiggle toes when asked. He was not responsive to commands or yes or no questions. Continues in the ICU on 5L NC with an oxygen saturation of 91%. He is afebrile, Heart rate is in the 40-50's dropping into the mid 30's. Unclear whether patient is in a heart block, nurse reports HR of 30's seems to be when he is sleeping. EKG will try to be obtained when he is in the 30's. Respirations are 23, blood pressure 135/55. Chest xray today remains unchanged. Possible trach and PEG tube wednesday if needed. Labs today show WBC 7.0, hgb 9.1, D-dimer 0.86, sodium 142, potassium 3.6, BUN 33, creatinine 1.28, glucose in the 130s, calcium 7.8, CRP 1.7, total protein 4.6, albumin 2.0. Multiple consultations. Prognosis remains guarded. 05/25/2021 Throughout the evening patient desaturated and his blood pressure was dropping while on the levophed and his heart rate was increasing and then once he was off the levophed his heart rate was increasing and his blood pressure was dropping. Patient was reintubated with an Fi02 of 60%. Blood gases at the time showed a pCO2 of greater than 120, pH 6.97, pO2 170, total oxygen saturation 98. Oxygen saturations 98%, he is afebrile, pulse rate 43 appears sinus bradycardia on EKG that was obtained midmorning. Blood pressure 135/75. Blood gases have improved with a pH now 7.30, pCO2 57, pO2 57, HCO3 28, total CO2 30 and O2 saturation 87.5. Sodium 140, potassium 3.7, chloride 109, CO2 28, BUN 27, creatinine 1.36, blood glucose 120, calcium 8.1, AST 27, ALT 19, LDH 585, CRP 1.9. Chest x-ray today shows as based consolidation atelectasis and volume loss in the right hemithorax which is slightly compared to exam yesterday. Has pulmonary interstitial edema on the left side without change. Plan is for a PEG, trach tomorrow. Cardiology was consulted and started patient on a dopamine infusion. Patient is on D5 water at 75 mL per hour, levophed infusing, propofol, on IV Zosyn and IV valproic acid. Labs initial white count 13, hemoglobin 10.7, d- dimer 1.84. 05/26/2021 Patient is seen today in follow up in the ICU being closely monitored. Multiple medical consultations following along with general surgery and is scheduled for peg and trach placement today. Tube feedings on hold. Patient continues on mechanical vent and FI02 is 50% peep is 5. Chest xray today shows COPD right greater than left with covid infiltrates and aeration improving now on the right. Potassium is 3.2 and being replaced. Lovenox on hold for the procedure as well. 05/27/2021 Patient is seen in follow-up in the ICU with multiple medical consultations following. Patient is status post PEG and trach placement and will be initiating tube feeds once cleared by surgery. Sputum culture finalized showing E. coli with ESBL and resistance and infectious disease is following. Patient was continued on dopamine along with Levophed and attempting to wean per nursing staff. Patient also continues in D5 water with nephrology following closely. Patient is on IV Zosyn along with nystatin and will continue. Chest x-ray today shows stable portable chest with no evidence of pneumothorax and no change in bibasilar opacities. Patient continues on propofol and FiO2 is 50% with a PEEP of 5. Potassium found a 3.2 and replaced and will repeat labs. 05/28/2021 Patient is seen in follow-up this morning continues to be in the ICU with multiple medical consultations following. Patient is currently continued on mechanical vent via tracheostomy and FiO2 is 40% with a PEEP of 5. Patient is status post peg and trach and surgery following. Patient resumed on lovenox and tube feedings. Tolerating tube feedings thus far. Patient continues on levophed and off dopamine. Patient was on Midodrine and will resume along with his olanzapine and continue to monitor closely. Patient is maintained on Meropenem and ID following closely. Patient also continues on solu-cortef and d5 in water with nephrology following as well. 05/29/2021 Patient is seen and evaluated in follow-up today continues to be in the ICU under close observation with multiple medical consultations following. Patient continues on mechanical ventilation via tracheostomy and FiO2 is 40% and PEEP is 5. Chest xray today shows COPD with continued peripheral and basilar covid infiltrates, similar to slightly worsened from yesterday. Patient continues with sedation holidays to assess mentation although continues to not follow commands appropriately. Patient continues on Levophed as well. IV merrem to continue. 05/30/2021 Patient is seen this morning in the ICU with multiple medical consultations following. Patient continues on vent with an FI02 of 40% and peep is 5. Chest x-ray today shows a curvilinear edge that is now seen at the bilateral apices that could be projectional artifact and recommended follow-up with improved positioning to exclude trace of new biapical pneumothoraces, COPD, increase in small to moderate bilateral pleural effusions with continued patchy mid and lower lung Covid infiltrates. Patient continues on sedation and staff mechanical engineer working on weaning. Patient will open eyes although not follow any commands. Continues on low dose levophed 05/31/2021 Patient is in the MICU. Admitted to hospital due to acute COVID-19 pneumonia. Currently on mechanical ventilator via tracheostomy tube. Assist-control with respiratory rate 30, tidal volume 350, FiO2 50% and PEEP of 5. Remains on propofol and Nimbex. Currently on D5 water at 75 cc/h. Patient is off pressor support. Patient is being continued on antibiotics in the form of meropenem. Sputum cultures growing Romelia and most recently E. coli. ID is on board. Chest x- ray showed bilateral lung infiltrates with suggestion of mild improvement in the left midlung zone. Laboratory data showed WBC 10.6 hemoglobin 9.3 and platelets 579 Sodium 139 potassium 4.0 chloride 101 bicarb is 28 BUN 23 and creatinine 1.46 albumin 2.0 Patient is on hydrocortisone her milligrams IV every 6 hourly and also on midodr ine. 06/01/2021 Patient is in MICU. Remains on ventilator via tracheostomy tube. FiO2 40% PEEP of 5. Not requiring any pressor support. Patient is being tried on IV hydrocortisone and midodrine. Currently on tube feedings. Chest x-ray showed bilateral opacities in the some interstitial infiltrates in the midlung zones. Upper lungs remain well aerated. No significant change. No pneumothorax. Patient sputum cultures showed E. coli. Repeat cultures have been negative patient remains on antibiotics in the form of meropenem. ID and pulmonary is on board. Laboratory data showed WC 5.6 hemoglobin 9.3 and platelets 462 sodium 137 potassium 4.0 chloride 110 bicarb is 28 BUN 27 creatinine 1.42 and blood sugar 146 ID nephrology and pulmonary is on board. 06/06/2021. Patient is currently in the intensive care unit. Tolerated trach collar with 40% FiO2 for about 12 hours yesterday. Patient was also placed in the chair via mechanical lift. Patient was placed back on assist control in the night. Patient has been afebrile. Patient is being current on antibiotics, meropenem due to E. coli ESBL pneumonia. Patient has been afebrile. Does not require any pressor support at this time. Otherwise patient is also on hydrocortisone tapering down to 50 mg every 12. Patient still remains confused and could not communicate. Patient remains sinus rhythm. Continued on oral amiodarone and also Eliquis twice daily. Chest x-ray showed similar COPD with mild mid and lower lung infiltrates and small effusions. Patient is tolerating tube feedings. Bilateral lower extremity edema is much improved. Laboratory data showed WBC 5.8 hemoglobin 9.5 platelets 274 sodium 143 potassium 3.6 chloride 104 bicarb is 40 BUN 49 creatinine 1.35 calcium 7.4 and albumin 2.4. 06/07/2021 Patient was transferred to psych care unit. Patient was extubated and decannulated. Patient was having significant respiratory distress morning and was suctioned. Currently requiring high flow oxygen at 8 L. Currently resting in the bed comfortably. Currently hemodynamically stable. Able to tolerate tube feeding. Patient is being current meropenem for ESBL pneumonia E. coli. Currently patient is also on anticoagulation with Eliquis. ID and pulmonary is on board. 06/08/2021 Patient was in the safe care unit. Respiratory status got worse and this morning and patient was having agonal breathing and saturating at 72% which 50 later 100% nonrebreather. Pulmonary was informed and discussed the CODE STATUS with the family. Patient's legal guardian wants him to be placed on medical ventilator again. Patient was placed tracheostomy tube and transfer to MICU. Started on mechanical ventilator with assist control. Chest x-ray showed interval removal of tracheostomy tube. Chronic emphysematous and pulmonary fibrotic changes with persistent small bilateral pleural effusions and bilateral multifocal mid to lower lung opacities consistent with COVID-19 infection ARDS edema demonstrated. Laboratory data showed WBC 8.1 hemoglobin 8.7 platelets 141 sodium 147 potassium 3.5 chloride 101 bicarb is 40 BUN 43 and creatinine 1.33 patient is getting IV hydration with normal saline at 75 cc/h. Currently on hydrocortisone 20 mg daily and 10 mg at bedtime. Maintained on anticoagulation with Eliquis. Cont inues to be on sinus rhythm. Also on antibiotics in the form of meropenem. ID and pulmonary is on board. Patient was transferred back to ICU today Current medications reviewed. Review of systems: Unable to obtain as patient is mechanically intubated and sedated Objective - Vital Signs Vital signs: Vital Signs Temp 99.0 F 06/08/21 20:00 Pulse 59 L 06/08/21 20:00 Resp 21 06/08/21 20:00 BP 85/50 06/08/21 20:00 Pulse Ox 97 06/08/21 20:00 Intake & Output 06/08/21 06/08/21 06/09/21 06:59 18:59 06:59 Intake Total 1270 476 Output Total 1400 910 275 Balance -1400 360 201 Weight 70.5 kg Intake: IV 741 258 0.9 NaCl- 675 225 Meropenem 66 33 Tube Feeding 329 188 Other 200 30 Output: Urine 1400 910 275 Other: Voiding Method Indwelling Catheter Indwelling Catheter ABP, PAP, CO, CI - Last Documented Arterial Blood Pressure 113/56 - Exam Physical Exam: Gen: this is a 70-year-old male currently on trach collar. on mechanical ventilation with a PEEP of 5 HEENT: Head is atraumatic, normocephalic. Pupils equal, round. Sclerae is anicteric. NECK: Supple. No JVD. No lymphadenopathy. No thyromegaly. LUNGS: Diminished breath sounds bilaterally with coarse rhonchi and crackles noted. No intercostal retractions. HEART: S1, S2 are muffled ABDOMEN: Soft. Bowel sounds are present. No masses. No tenderness. EXTREMITIES: No pedal edema. No calf tenderness. NEUROLOGICAL: Patient is currently intubated and sedated - Labs CBC & Chem 7: 06/08/21 09:52 06/08/21 09:52 Labs: Abnormal Lab Results - Last 24 Hours (Table) 06/08/21 06/08/21 06/08/21 Range/Units 00:08 06:18 09:45 RBC (4.30-5.90) m/uL Hgb (13.0-17.5) gm/dL Hct (39.0-53.0) % Plt Count (150-450) k/uL Lymphocytes # (1.0-4.8) k/uL APTT (22.0-30.0) sec ABG pCO2 57 H (35-45) mmHg ABG pO2 81 L (83-108) mmHg ABG HCO3 39 H (21-25) mmol/L ABG Total CO2 41 H (19-24) mmol/L ABG O2 Saturation 97.5 H (94-97) % Sodium (137-145) mmol/L Chloride (98-107) mmol/L Carbon Dioxide (22-30) mmol/L BUN (9-20) mg/dL Creatinine (0.66-1.25) mg/dL Glucose (74-99) mg/dL POC Glucose (mg/dL) 105 H 114 H (75-99) mg/dL Calcium (8.4-10.2) mg/dL Total Protein (6.3-8.2) g/dL Albumin (3.5-5.0) g/dL 06/08/21 06/08/21 06/08/21 Range/Units 09:52 09:52 09:52 RBC 2.71 L (4.30-5.90) m/uL Hgb 8.7 L (13.0-17.5) gm/dL Hct 26.8 L (39.0-53.0) % Plt Count 141 L (150-450) k/uL Lymphocytes # 0.2 L (1.0-4.8) k/uL APTT 34.3 H (22.0-30.0) sec ABG pCO2 (35-45) mmHg ABG pO2 (83-108) mmHg ABG HCO3 (21-25) mmol/L ABG Total CO2 (19-24) mmol/L ABG O2 Saturation (94-97) % Sodium 147 H (137-145) mmol/L Chloride 111 H (98-107) mmol/L Carbon Dioxide 40 H (22-30) mmol/L BUN 43 H (9-20) mg/dL Creatinine 1.33 H (0.66-1.25) mg/dL Glucose 104 H (74-99) mg/dL POC Glucose (mg/dL) (75-99) mg/dL Calcium 8.0 L (8.4-10.2) mg/dL Total Protein 4.5 L (6.3-8.2) g/dL Albumin 2.0 L (3.5-5.0) g/dL 06/08/21 06/08/21 Range/Units 09:58 18:00 RBC (4.30-5.90) m/uL Hgb (13.0-17.5) gm/dL Hct (39.0-53.0) % Plt Count (150-450) k/uL Lymphocytes # (1.0-4.8) k/uL APTT (22.0-30.0) sec ABG pCO2 (35-45) mmHg ABG pO2 (83-108) mmHg ABG HCO3 (21-25) mmol/L ABG Total CO2 (19-24) mmol/L ABG O2 Saturation (94-97) % Sodium (137-145) mmol/L Chloride (98-107) mmol/L Carbon Dioxide (22-30) mmol/L BUN (9-20) mg/dL Creatinine (0.66-1.25) mg/dL Glucose (74-99) mg/dL POC Glucose (mg/dL) 101 H 102 H (75-99) mg/dL Calcium (8.4-10.2) mg/dL Total Protein (6.3-8.2) g/dL Albumin (3.5-5.0) g/dL Assessment and Plan Assessment: Acute COVID-19 infection with acute COVID-19 bilateral interstitial pneumonia, right more than left with acute hypoxic respiratory failure, now requiring mechanical ventilation with extubation on 05/24/2021, and re-intubation on 05/25/2021 status post peg tube and tracheostomy placement, FiO2 50% with a PEEP of 5 Acute kidney injury secondary to acute tubular necrosis from septic shock Chronic kidney disease stage III secondary to nephrosclerosis Hypoglycemia, improved Change in mental status, metabolic encephalopathy, multifactorial Falling, gait dysfunction Anemia, normocytic anemia of undetermined significance Hypernatremia from poor oral intake Hyperkalemia secondary to acute kidney injury, resolved Elevated d-dimer history of coronary artery disease history of chronic obstructive pulmonary disease Gastroesophageal reflux disease history of bipolar, schizoaffective disorder and schizophrenia History of nicotine dependence Severe protein calorie malnutrition with a BMI of 19.1 No code Plan: Recommend to continue with current medications and follow along closely with multiple medical consultations. Prognosis remains extremely guarded with multiple complex medical issues noted. Patient is status post peg and trach marce cement and continues on mechanical vent. Continued attempts of sedation holiday to assess mentation and weaning. Currentl off propofol at the moment. Not tolerating extremely well. Has Dilaudid as well. tube feedings being tolerated. Recommend continue with current medications and patient has been maintained on IV antibiotics with infectious disease following.. Patient will continue on merrem . Chest x-ray reviewed as mentioned above. Recommend repeat labs in the morning along with chest xray. IV fluids discontinued and is on IV lasix. Significant scrotal and penis swelling improving. Nephrology following as well. Again due to multiple complex medical issues prognosis is quite guarded. Time with Patient: Greater than 30
[2021-06-09 00:01] LABS: Glucose,Whole Blood 107 mg/dL (75-99)
[2021-06-09] MEDS: INSULIN ASPART (NovoLOG) 100 UNIT/ML VIAL SQ SCH ×4 (00:10→18:49)
[2021-06-09] MEDS: HALOPERIDOL LACTATE 5 MG/ML 1 ML VIAL IVP PRN ×3 (05:42→09:43)
[2021-06-09 05:46] LABS: ABG Base Excess 14.9 mmol/L; ABG HCO3 38 mmol/L (21-25); ABG Oxygen Saturation 98.1 % (94-97); ABG PCO2 47 mmHg (35-45); ABG PH 7.51 (7.35-7.45); ABG PO2 86 mmHg (83-108); ABG TCO2 39 mmol/L (19-24); Allen Test Performed? Yes
[2021-06-09 05:56] LABS: Glucose,Whole Blood 115 mg/dL (75-99)
[2021-06-09] MEDS: MIDODRINE 5 MG TAB PO SCH ×3 (07:06→17:54)
[2021-06-09] MEDS: MEROPENEM 1 GM in SODIUM CHLORIDE 0.9% 100 ML IVPB SCH ×2 (07:06→15:42)
[2021-06-09 08:22] LABS: Basophils % (A) 0 %; Eosinophils # (A) 0.3 k/uL (0-0.7); Eosinophils % (A) 4 %; HCT 28.2 % (39.0-53.0); HGB 9.2 gm/dL (13.0-17.5); Hypochromasia Slight; Lymphocytes # (A) 0.7 k/uL (1.0-4.8); Lymphocytes % (A) 11 %; MCH 32.4 pg (25.0-35.0); MCHC 32.5 g/dL (31.0-37.0); MCV 99.7 fL (80.0-100.0); Macrocytosis Slight; Monocytes # (A) 0.3 k/uL (0-1.0); Monocytes % (A) 4 %; Neutrophils # (A) 5.4 k/uL (1.3-7.7); Neutrophils % (A) 80 %; Platelet Count 137 k/uL (150-450); RBC 2.83 m/uL (4.30-5.90); RDW 14.7 % (11.5-15.5); WBC 6.8 k/uL (3.8-10.6)
[2021-06-09 08:38] LABS: Calcium 8.3 mg/dL (8.4-10.2); Potassium 3.8 mmol/L (3.5-5.1)
--- NOTE | 2021-06-09 08:47 | XR ---
EXAMINATION TYPE: XR chest 1V portable DATE OF EXAM: 06/09/2021 COMPARISON: 06/08/2021 HISTORY: SOB, Follow Up FINDINGS: Indwelling tubes and catheters are unchanged. Bilateral peripheral infiltrates persist although there may be slight interval improvement. Stable appearance of the cardio-mediastinal structures at this time. Pleural effusion unchanged. IMPRESSION: 1. Bilateral peripheral infiltrates persist although there may be slight interval improvement.Clinic al correlation and follow up until resolution is recommended.
[2021-06-09] MEDS: APIXABAN 5 MG TAB PO SCH ×2 (09:27→21:03)
[2021-06-09] MEDS: PANTOPRAZOLE 40 MG/10 ML VIAL IVP SCH (09:27)
[2021-06-09] MEDS: AMIODARONE 200 MG TAB PO SCH ×2 (09:27→21:03)
[2021-06-09] MEDS: HYDROCORTISONE 20 MG TAB PO SCH (09:28)
[2021-06-09] MEDS: FERROUS SULFATE ORAL ELIXIR 300 MG/5 ML CUP PO SCH (09:28)
[2021-06-09] MEDS: OLANZapine ODT 5 MG TAB PO SCH (09:29)
[2021-06-09] MEDS: FOLIC ACID 1 MG TAB PO SCH (09:33)
--- NOTE | 2021-06-09 10:45 | P.PN ---
Subjective Progress Note Date: 06/09/21 CHIEF COMPLAINT: COVID-19 pneumonia HISTORY OF PRESENT ILLNESS: Patient is in the ICU. Patient decompensated yesterday required to have the tracheostomy tube reinserted by critical care service. He was transferred back to the ICU. And is currently on mechanical ventilation. Patient is moving around in bed. He is tolerating tube feeds. Afebrile. WBC 6.8 PHYSICAL EXAM: VITAL SIGNS: Reviewed. GENERAL: no acute distress. HEENT: Moist buccal mucosa. Head is atraumatic, normocephalic. Tracheostomy site clean dry and intact ABDOMEN: Soft. Nondistended. PEG tube site clean dry and intact ASSESSMENT: 1. Acute hypoxic respiratory failure secondary to COVID-19 pneumonia with mechanical ventilation and difficulty weaning from the vent status post tracheostomy placement 2. Severe protein calorie malnutrition status post PEG tube placement PLAN: -Continue ICU management and supportive care -Continue tube feedings Physician Mechanic note has been reviewed by physician. Signing provider agrees with the documented findings, assessment, and plan of care. Objective - Vital Signs Vital signs: Vital Signs Temp 99.5 F 06/09/21 08:00 Pulse 78 06/09/21 10:00 Resp 32 H 06/09/21 10:00 BP 107/60 06/09/21 10:00 Pulse Ox 96 06/09/21 10:00 Intake & Output 06/08/21 06/09/21 06/09/21 18:59 06:59 18:59 Intake Total 1270 1691.221 271 Output Total 910 1050 355 Balance 360 641.221 -84 Weight 76.3 kg Intake: IV 741 958 100 0.9 NaCl- 675 825 0 Meropenem 66 133 100 Intake, IV Titration 2.221 Amount propofoL 1,000 mg In 2.221 Empty Bag 1 bag @ Titrate IV .Q0M [facility] Rx#: [id number] Tube Feeding 329 611 141 Other 200 120 30 Output: Urine 910 1050 355 Other: Voiding Method Indwelling Catheter Indwelling Catheter ABP, PAP, CO, CI - Last Documented Arterial Blood Pressure 113/56 - Labs CBC & Chem 7: 06/09/21 08:05 06/09/21 08:05 Labs: Abnormal Lab Results - Last 24 Hours (Table) 06/08/21 06/08/21 06/09/21 Range/Units 18:00 23:59 05:43 RBC (4.30-5.90) m/uL Hgb (13.0-17.5) gm/dL Hct (39.0-53.0) % Plt Count (150-450) k/uL Lymphocytes # (1.0-4.8) k/uL ABG pH 7.51 H (7.35-7.45) ABG pCO2 47 H (35-45) mmHg ABG HCO3 38 H (21-25) mmol/L ABG Total CO2 39 H (19-24) mmol/L ABG O2 Saturation 98.1 H (94-97) % Sodium (137-145) mmol/L Chloride (98-107) mmol/L Carbon Dioxide (22-30) mmol/L BUN (9-20) mg/dL Creatinine (0.66-1.25) mg/dL Glucose (74-99) mg/dL POC Glucose (mg/dL) 102 H 107 H (75-99) mg/dL Calcium (8.4-10.2) mg/dL 06/09/21 06/09/21 06/09/21 Range/Units 05:54 08:05 08:05 RBC 2.83 L (4.30-5.90) m/uL Hgb 9.2 L (13.0-17.5) gm/dL Hct 28.2 L (39.0-53.0) % Plt Count 137 L (150-450) k/uL Lymphocytes # 0.7 L (1.0-4.8) k/uL ABG pH (7.35-7.45) ABG pCO2 (35-45) mmHg ABG HCO3 (21-25) mmol/L ABG Total CO2 (19-24) mmol/L ABG O2 Saturation (94-97) % Sodium 149 H (137-145) mmol/L Chloride 113 H (98-107) mmol/L Carbon Dioxide 39 H (22-30) mmol/L BUN 42 H (9-20) mg/dL Creatinine 1.30 H (0.66-1.25) mg/dL Glucose 113 H (74-99) mg/dL POC Glucose (mg/dL) 115 H (75-99) mg/dL Calcium 8.3 L (8.4-10.2) mg/dL
[2021-06-09] MEDS: POTASSIUM BICARBONATE/CIT AC 20 MEQ TABLET.EFF PO SCH ×2 (11:14→21:02)
[2021-06-09 11:30] VITALS: BMI 23.4
[2021-06-09 12:01] LABS: Glucose,Whole Blood 116 mg/dL (75-99)
[2021-06-09] MEDS: SODIUM CHLORIDE 0.45% 1,000 ML IV SCH (12:11)
[2021-06-09] MEDS ORDERED: LORazepam 2 MG/ML INJ IV PRN (12:19)
[2021-06-09] MEDS ORDERED: HYDROmorphone 1 MG/ML 1 ML SYRINGE IVP PRN (12:20)
--- NOTE | 2021-06-09 13:00 | P.PN ---
Subjective Principal diagnosis: Patient was seen during the earlier part of his admission mostly for acute kidney injury. Renal function had improved with creatinine down to 1.2 mg/dL. Currently staying 1.3 mg/dL. Patient's sodium is up to 149 today. Patient remains on the vent. Good urine output Currently maintained on normal saline. Objective - Vital Signs Vital signs: Vital Signs Temp 100.2 F H 06/09/21 12:00 Pulse 69 06/09/21 12:00 Resp 23 06/09/21 12:00 BP 81/47 06/09/21 12:00 Pulse Ox 96 06/09/21 12:00 Intake & Output 06/08/21 06/09/21 06/09/21 18:59 06:59 18:59 Intake Total 1270 1691.221 736.936 Output Total 910 1050 610 Balance 360 641.221 126.936 Weight 76.3 kg 76.3 kg Intake: IV 741 958 250 0.9 NaCl- 675 825 150 Meropenem 66 133 100 Intake, IV Titration 2.221 144.936 Amount Sodium Chloride 0.45% 1, 75 000 ml @ 75 mls/hr IV . [id number] [facility] Rx#:[id number] propofoL 1,000 mg In 2.221 69.936 Empty Bag 1 bag @ Titrate IV .Q0M [facility] Rx#: [id number] Tube Feeding 329 611 282 Other 200 120 60 Output: Urine 910 1050 610 Other: Voiding Method Indwelling Catheter Indwelling Catheter ABP, PAP, CO, CI - Last Documented Arterial Blood Pressure 113/56 - Exam Patient is on the vent. Examination lower extremities shows no significant edema. Abdomen is soft. Examination lungs shows bilateral breath sounds Examination of the heart, S1 and S2 - Labs CBC & Chem 7: 06/09/21 08:05 06/09/21 08:05 Labs: Abnormal Lab Results - Last 24 Hours (Table) 06/08/21 06/08/21 06/09/21 Range/Units 18:00 23:59 05:43 RBC (4.30-5.90) m/uL Hgb (13.0-17.5) gm/dL Hct (39.0-53.0) % Plt Count (150-450) k/uL Lymphocytes # (1.0-4.8) k/uL ABG pH 7.51 H (7.35-7.45) ABG pCO2 47 H (35-45) mmHg ABG HCO3 38 H (21-25) mmol/L ABG Total CO2 39 H (19-24) mmol/L ABG O2 Saturation 98.1 H (94-97) % Sodium (137-145) mmol/L Chloride (98-107) mmol/L Carbon Dioxide (22-30) mmol/L BUN (9-20) mg/dL Creatinine (0.66-1.25) mg/dL Glucose (74-99) mg/dL POC Glucose (mg/dL) 102 H 107 H (75-99) mg/dL Calcium (8.4-10.2) mg/dL 06/09/21 06/09/21 06/09/21 Range/Units 05:54 08:05 08:05 RBC 2.83 L (4.30-5.90) m/uL Hgb 9.2 L (13.0-17.5) gm/dL Hct 28.2 L (39.0-53.0) % Plt Count 137 L (150-450) k/uL Lymphocytes # 0.7 L (1.0-4.8) k/uL ABG pH (7.35-7.45) ABG pCO2 (35-45) mmHg ABG HCO3 (21-25) mmol/L ABG Total CO2 (19-24) mmol/L ABG O2 Saturation (94-97) % Sodium 149 H (137-145) mmol/L Chloride 113 H (98-107) mmol/L Carbon Dioxide 39 H (22-30) mmol/L BUN 42 H (9-20) mg/dL Creatinine 1.30 H (0.66-1.25) mg/dL Glucose 113 H (74-99) mg/dL POC Glucose (mg/dL) 115 H (75-99) mg/dL Calcium 8.3 L (8.4-10.2) mg/dL 06/09/21 Range/Units 11:59 RBC (4.30-5.90) m/uL Hgb (13.0-17.5) gm/dL Hct (39.0-53.0) % Plt Count (150-450) k/uL Lymphocytes # (1.0-4.8) k/uL ABG pH (7.35-7.45) ABG pCO2 (35-45) mmHg ABG HCO3 (21-25) mmol/L ABG Total CO2 (19-24) mmol/L ABG O2 Saturation (94-97) % Sodium (137-145) mmol/L Chloride (98-107) mmol/L Carbon Dioxide (22-30) mmol/L BUN (9-20) mg/dL Creatinine (0.66-1.25) mg/dL Glucose (74-99) mg/dL POC Glucose (mg/dL) 116 H (75-99) mg/dL Calcium (8.4-10.2) mg/dL Assessment and Plan Assessment: #1 acute kidney injury secondary to hemodynamic ATN. Peak creatinine was 2.07. Improved. Creatinine now staying in about 1.3 mg/dL. #2 chronic kidney disease stage III A secondary to nephrosclerosis with a baseline creatinine of 1.2-1.4 MG per DL. #3 COVID-19 pneumonia, patient remains on the vent he is status post trach and PEG #4 hypernatremia associated with free water deficit. Change saline to half- normal saline. Free water down the feeding tube started as well. #5 hyperkalemia secondary to acute kidney injury, resolved Plan: 1. Agree with free water down the feeding tube 2. Change saline to half-normal saline. 3. Repeat labs in a.m.
--- NOTE | 2021-06-09 14:33 | P.PN ---
Subjective Progress Note Date: 06/09/21 Principal diagnosis: Acute hypoxic respiratory failure secondary to COVID-19 pneumonia, and strongly suspect aspiration pneumonia. Morning of 06/08/2021, the patient decompensated. This was essentially related to excess amount of rest or secretions which the patient was unable to cough. Noted the patient was decannulated. He was on a medical floor. He was placed on progressively higher oxygen flow and he became progressively more lethargic and tachypneic using NSAIDs and muscle breathing. Pulse ox dropped and it low 80s. I attended on this patient in the ccie hours and immediately I inserted a extra long #[address] tracheostomy tube in place. This is a coughed tracheostomy tube. Post tracheostomy tube insertion, we've performed repeated suctioning in fact the patient's oxidation obviously improved. Following that, the patient was transferred to the ICU. Initially was placed on a pressure support mode of mechanical ventilation. Nevertheless, he was having prolonged apneas. Currently is on assist control mode at the rate of 14, tidal volume of 350, FiO2 is at 50% with a PEEP of 5. Chest x-ray post insertion of a tracheostomy tube revealed some effusion in lung bases bilaterally along with some bibasilar pulmonary infiltrates. Note that the patient was having copious amount of respiratory secretions and his previous culture was positive for ESBL producing E. coli and the patient is currently on IV meropenem. He is more lethargic. Less responsive on today's evaluation. He has not received any sedation for us. He is receiving enteral feeding for nutritional support and the patient is currently on Nepro at the rate of 47 mL an hour. During those events, he also became slightly hypotensive. Most recent blood pressure 91/53. He is not requiring any pressors. IV fluids are running at the rate of 75 mL an hour. He will be also receiving a bolus of 1 L normal saline. He is afebrile. He remains on Eliquis 5 mg by mouth twice a day via PEG tube Patient was reevaluated today on 06/09/2021, remains in the ICU, patient was dec annulated on 06/07, however the patient had to be sent back to the ICU on 06/08, and he was placed back on mechanical ventilation and a 6.0 tracheostomy tube was placed in his stoma. Patient is on assist control rate of 14,000 volume 350 FiO2 50% PEEP of 5. ABG showed a pO2 of 86 pCO2 47 pH of 7.51. Patient is on IV fluid 0.9 normal saline at 75 mL per hour, he is not requiring any propofol, he is on intermittent sedation, but at this point is not requiring propofol or fentanyl. Chest x-ray continues to show bilateral infiltrates, with slight interval improvement. Patient seems to be about the same, not much of a change in the last 24 hours. He is not following any instructions. And again he is back on ventilatory support after 2 days of decannulation. Patient is being given reevaluated for LTAC placement. Patient has a great urine output, and I recommended that we stop Lasix. His sodium is a bit high and I'm recommending free water via PEG tube. WBC 6.8 hemoglobin is 9.2. Sodium is 149. BUN is 42 creatinine is 1.30. Slightly improved compared to the last few days Objective - Vital Signs Vital signs: Vital Signs Temp 100.2 F H 06/09/21 12:00 Pulse 55 L 06/09/21 13:00 Resp 27 H 06/09/21 13:00 BP 91/51 06/09/21 13:00 Pulse Ox 97 06/09/21 13:00 Intake & Output 06/08/21 06/09/21 06/09/21 18:59 06:59 18:59 Intake Total 1270 1691.221 736.936 Output Total 910 1050 610 Balance 360 641.221 126.936 Weight 76.3 kg 76.3 kg Intake: IV 741 958 250 0.9 NaCl- 675 825 150 Meropenem 66 133 100 Intake, IV Titration 2.221 144.936 Amount Sodium Chloride 0.45% 1, 75 000 ml @ 75 mls/hr IV . [id number] [facility] Rx#:[id number] propofoL 1,000 mg In 2.221 69.936 Empty Bag 1 bag @ Titrate IV .Q0M [facility] Rx#: [id number] Tube Feeding 329 611 282 Other 200 120 60 Output: Urine 910 1050 610 Other: Voiding Method Indwelling Catheter Indwelling Catheter ABP, PAP, CO, CI - Last Documented Arterial Blood Pressure 113/56 - Exam GENERAL EXAM: Revealed a 70-year-old white male, frail looking, on mechanical ventilation via tracheostomy. HEAD: Normocephalic/atraumatic. Tracheostomy is intact. HEENT: PERRLA, EOMI, anicteric, no neck masses no JVD, moist mucous membranes. CHEST: No chest wall deformity. Symmetrical expansion. LUNGS: Fine crackles at the bases especially at the right base. CVS: Normal S1 and S2, no S3 gallop. guarding or rigidity. EXTREMITIES: No clubbing, Abdomen: Nontender no megaly no rebound. PEG tube is intact. MUSCULOSKELETAL: No deformities. SKIN: No rashes CENTRAL NERVOUS SYSTEM: Awake, but does not follow any instructions. - Labs CBC & Chem 7: 06/09/21 08:05 06/09/21 08:05 Labs: Abnormal Lab Results - Last 24 Hours (Table) 06/08/21 06/08/21 06/09/21 Range/Units 18:00 23:59 05:43 RBC (4.30-5.90) m/uL Hgb (13.0-17.5) gm/dL Hct (39.0-53.0) % Plt Count (150-450) k/uL Lymphocytes # (1.0-4.8) k/uL ABG pH 7.51 H (7.35-7.45) ABG pCO2 47 H (35-45) mmHg ABG HCO3 38 H (21-25) mmol/L ABG Total CO2 39 H (19-24) mmol/L ABG O2 Saturation 98.1 H (94-97) % Sodium (137-145) mmol/L Chloride (98-107) mmol/L Carbon Dioxide (22-30) mmol/L BUN (9-20) mg/dL Creatinine (0.66-1.25) mg/dL Glucose (74-99) mg/dL POC Glucose (mg/dL) 102 H 107 H (75-99) mg/dL Calcium (8.4-10.2) mg/dL 06/09/21 06/09/21 06/09/21 Range/Units 05:54 08:05 08:05 RBC 2.83 L (4.30-5.90) m/uL Hgb 9.2 L (13.0-17.5) gm/dL Hct 28.2 L (39.0-53.0) % Plt Count 137 L (150-450) k/uL Lymphocytes # 0.7 L (1.0-4.8) k/uL ABG pH (7.35-7.45) ABG pCO2 (35-45) mmHg ABG HCO3 (21-25) mmol/L ABG Total CO2 (19-24) mmol/L ABG O2 Saturation (94-97) % Sodium 149 H (137-145) mmol/L Chloride 113 H (98-107) mmol/L Carbon Dioxide 39 H (22-30) mmol/L BUN 42 H (9-20) mg/dL Creatinine 1.30 H (0.66-1.25) mg/dL Glucose 113 H (74-99) mg/dL POC Glucose (mg/dL) 115 H (75-99) mg/dL Calcium 8.3 L (8.4-10.2) mg/dL 06/09/21 Range/Units 11:59 RBC (4.30-5.90) m/uL Hgb (13.0-17.5) gm/dL Hct (39.0-53.0) % Plt Count (150-450) k/uL Lymphocytes # (1.0-4.8) k/uL ABG pH (7.35-7.45) ABG pCO2 (35-45) mmHg ABG HCO3 (21-25) mmol/L ABG Total CO2 (19-24) mmol/L ABG O2 Saturation (94-97) % Sodium (137-145) mmol/L Chloride (98-107) mmol/L Carbon Dioxide (22-30) mmol/L BUN (9-20) mg/dL Creatinine (0.66-1.25) mg/dL Glucose (74-99) mg/dL POC Glucose (mg/dL) 116 H (75-99) mg/dL Calcium (8.4-10.2) mg/dL Assessment and Plan Assessment: #1. Acute hypoxic respiratory failure related to acute COVID-19 pneumonia, and possibility of bacterial infection/aspiration related pneumonia is not entirely excluded. Patient was brought into the emergency department on 05/17/2021 per EMS, patient is a poor historian, reportedly has history of bipolar disease and dementia. Came in primarily for evaluation of altered mental status. Transferred from [place] emergency department for COVID-19 related pneumonia. The patient was taken to the hospital in [place] 4 days prior to this admission and the symptom onset was probably even prior to that. Exact onset of symptoms is not known. Patient was transferred to the intensive care unit on 05/19/2021 for worsening hypoxia, and hypercapnia, and altered mental status, and was intubated on 05/19/2021 weaning from mechanical ventilation and was difficult, nonetheless, patient was extubated on 05/24/2021, patient could not cope with his secretions, and he had a very weak cough, patient had to be reintubated on 05/25/22. Patient is status post tracheostomy and PEG tube placement, he was even be cannulated at one point, but had to be placed back on mechanical ventilation yesterday. And tracheostomy tube was placed back in. Remains intubated and mechanically ventilated. #2. Acute hypercapnic respiratory failure, related to acute aspiration, and possible COVID-19 pneumonia, intubated #3. Hypotension, related to dehydration, and possibility of septic shock is not excluded. Mostly resolved. #4. Altered mental status with worsening from baseline #5. History of dementia and schizoaffective disorder #6. Acute dehydration and hypernatremia, resolved. Patient received free water and D5W. #7. Chronic stage 3 kidney disease #8. COPD #9. History of coronary artery disease #10. GERD/reflux #11. Hyperlipidemia #12. Acute kidney injury related to ATN, and dehydration, patient continues on IV hydration and continues to receive fluid boluses, creatinine seems to be fluctuating up and down. Today creatinine is 1.36 #13. Multiple areas of decubitus ulcer including deep tissue injury on bilateral heels, stage II on buttocks, stage II on bilateral hips and stage I on left elbow, present on admission #14. Hypoglcemia, resolved. recommendation: Continue ventilatory support. Patient is on assist control rate of 14, volume of 350 FiO2 50% and PEEP of 5 Continue bronchodilators. Continue IV fluids, monitor electrolytes accordingly on a daily basis. And adjust fluids as well as free water flushes. Continue nutritional support. Continue GI and DVT prophylaxis. Continue to monitor the patient in ICU. Patient is being considered for LTAC placement. Critical care time is over 30 minutes Time with Patient: Greater than 30
[2021-06-09 17:27] LABS: Glucose,Whole Blood 112 mg/dL (75-99)
[2021-06-09] MEDS: ATORVASTATIN 20 MG TAB PO SCH (21:03)
[2021-06-09] MEDS: OLANZapine ODT 10 MG TAB PO SCH (21:04)
[2021-06-09] MEDS: HYDROCORTISONE 10 MG TAB PO SCH (21:04)
[2021-06-09] MEDS: HYDROmorphone 1 MG/ML 1 ML SYRINGE IVP PRN (21:05)
[2021-06-09] MEDS: LORazepam 2 MG/ML INJ IV PRN (21:41)
[2021-06-09 23:46] LABS: Glucose,Whole Blood 103 mg/dL (75-99)
[2021-06-10] MEDS: INSULIN ASPART (NovoLOG) 100 UNIT/ML VIAL SQ SCH ×4 (00:24→19:28)
[2021-06-10] MEDS: MEROPENEM 1 GM in SODIUM CHLORIDE 0.9% 100 ML IVPB SCH ×3 (00:30→16:14)
--- NOTE | 2021-06-10 00:41 | P.PN ---
Subjective Progress Note Date: 06/09/21 This is a 70-year-old male who was recently admitted with change in mental status and fall and also shortness of breath and acute COVID-19 pneumonia and being closely monitored. Patient was continued on high flow oxygen although respiratory status continued to deteriorate and an A team was called. Patient was brought to the ICU for close monitoring and x-ray showed some bilateral lower lobe pneumonia which appears unchanged compared to recent exam with no obvious heart failure. Patient was placed on mechanical vent and intubated and sedated and is being closely monitored. Multiple medical consultations including pulmonary and infectious disease following closely. 05/20/2021 Patient is seen in follow-up activity is to be closely monitored in the ICU. Blood pressure and heart rate has been extremely variable and patient is maintained on D10 in water along with norepinephrine and will continue. Pulmonary and infectious disease following closely. Patient continues with worsening kidney functions nephrology consulted and patient is being given a liter bolus for hypotension and repeat sodium level ordered. Patient also continues on Zosyn and ID following closely. Patient continues with low blood sugar readings as well and we'll continue D10 and close glucose monitoring. Chest x-ray shows some improvement in bibasilar infiltrates more so on the right and possibly developing small right pleural effusion. 05/21/2021 Patient is seen and evaluated this morning continues to be in the ICU with multiple medical consultations following. Patient is continued on IV antibiotics with ID following. Cultures continue to be negative and WBC is 8.5. Patient did have low grade temp today. Patient continues on mechanical vent and sedated. Chest xray similar to previous exam and will continue to monitor. Prognosis remains guarded. Patient also continued on norepinephrine. 05/22/2021 Patient is seen and evaluated today continues to be on mechanical vent with an FiO2 of 40% PEEP is 5. Patient continuing with weaning trials and assist mode on mechanical vent although patient continues to not follow commands per nursing staff. Per pulmonary golf club assembler continued attempts at weaning. Chest x-ray shows chronic emphysematous changes and pulmonary fibrosis with moderate bilater al pleural effusions and bilateral multifocal increased opacification consistent with COVID-19 infection are all redemonstrated with no significant change from yesterday. Sputum culture finalized showing Romelia species not albicans, glabrata along with Romelia albicans and infectious disease is following. Patient continues on IV antibiotics in the form of Zosyn. Patient is currently off norepinephrine and receiving Solu-Cortef along with valproic acid and Depakote. Patient is continued on Lovenox for DVT prophylaxis. Patient also continues on D5 in water at 100 mL per hour. Blood gases are improving and pulmonary discussing possible extubation. 05/23/2021 Patient is seen this morning continues to be on mechanical vent with an FiO2 of 40 and a PEEP of 5 with continued weaning trials. Patient is off sedation and does open eyes to verbal stimuli although does not follow commands. Chest x-ray today shows chronic emphysematous and pulmonary fibrotic changes with small size bilateral pleural effusions and bilateral multifocal increased opacification is consistent with COVID-19 infection are again redemonstrated with no significant change from previous. General surgery consulted for possible trach and peg tube placement. 05/24/2021 Patient with spontaneous eye opening during assessment, eyes are tracking, however when asked to squeeze fingers patient unable to do so and did not wiggle toes when asked. He was not responsive to commands or yes or no questions. Continues in the ICU on 5L NC with an oxygen saturation of 91%. He is afebrile, Heart rate is in the 40-50's dropping into the mid 30's. Unclear whether patient is in a heart block, nurse reports HR of 30's seems to be when he is sleeping. EKG will try to be obtained when he is in the 30's. Respirations are 23, blood pressure 135/55. Chest xray today remains unchanged. Possible trach and PEG tube wednesday if needed. Labs today show WBC 7.0, hgb 9.1, D-dimer 0.86, sodium 142, potassium 3.6, BUN 33, creatinine 1.28, glucose in the 130s, calcium 7.8, CRP 1.7, total protein 4.6, albumin 2.0. Multiple consultations. Prognosis remains guarded. 05/25/2021 Throughout the evening patient desaturated and his blood pressure was dropping while on the levophed and his heart rate was increasing and then once he was off the levophed his heart rate was increasing and his blood pressure was dropping. Patient was reintubated with an Fi02 of 60%. Blood gases at the time showed a pCO2 of greater than 120, pH 6.97, pO2 170, total oxygen saturation 98. Oxygen saturations 98%, he is afebrile, pulse rate 43 appears sinus bradycardia on EKG that was obtained midmorning. Blood pressure 135/75. Blood gases have improved with a pH now 7.30, pCO2 57, pO2 57, HCO3 28, total CO2 30 and O2 saturation 87.5. Sodium 140, potassium 3.7, chloride 109, CO2 28, BUN 27, creatinine 1.36, blood glucose 120, calcium 8.1, AST 27, ALT 19, LDH 585, CRP 1.9. Chest x-ray today shows as based consolidation atelectasis and volume loss in the right hemithorax which is slightly compared to exam yesterday. Has pulmonary interstitial edema on the left side without change. Plan is for a PEG, trach tomorrow. Cardiology was consulted and started patient on a dopamine infusion. Patient is on D5 water at 75 mL per hour, levophed infusing, propofol, on IV Zosyn and IV valproic acid. Labs initial white count 13, hemoglobin 10.7, d- dimer 1.84. 05/26/2021 Patient is seen today in follow up in the ICU being closely monitored. Multiple medical consultations following along with general surgery and is scheduled for peg and trach placement today. Tube feedings on hold. Patient continues on mechanical vent and FI02 is 50% peep is 5. Chest xray today shows COPD right greater than left with covid infiltrates and aeration improving now on the right. Potassium is 3.2 and being replaced. Lovenox on hold for the procedure as well. 05/27/2021 Patient is seen in follow-up in the ICU with multiple medical consultations following. Patient is status post PEG and trach placement and will be initiating tube feeds once cleared by surgery. Sputum culture finalized showing E. coli with ESBL and resistance and infectious disease is following. Patient was continued on dopamine along with Levophed and attempting to wean per nursing staff. Patient also continues in D5 water with nephrology following closely. Patient is on IV Zosyn along with nystatin and will continue. Chest x-ray today shows stable portable chest with no evidence of pneumothorax and no change in bibasilar opacities. Patient continues on propofol and FiO2 is 50% with a PEEP of 5. Potassium found a 3.2 and replaced and will repeat labs. 05/28/2021 Patient is seen in follow-up this morning continues to be in the ICU with multiple medical consultations following. Patient is currently continued on mechanical vent via tracheostomy and FiO2 is 40% with a PEEP of 5. Patient is status post peg and trach and surgery following. Patient resumed on lovenox and tube feedings. Tolerating tube feedings thus far. Patient continues on levophed and off dopamine. Patient was on Midodrine and will resume along with his olanzapine and continue to monitor closely. Patient is maintained on Meropenem and ID following closely. Patient also continues on solu-cortef and d5 in water with nephrology following as well. 05/29/2021 Patient is seen and evaluated in follow-up today continues to be in the ICU under close observation with multiple medical consultations following. Patient continues on mechanical ventilation via tracheostomy and FiO2 is 40% and PEEP is 5. Chest xray today shows COPD with continued peripheral and basilar covid infiltrates, similar to slightly worsened from yesterday. Patient continues with sedation holidays to assess mentation although continues to not follow commands appropriately. Patient continues on Levophed as well. IV merrem to continue. 05/30/2021 Patient is seen this morning in the ICU with multiple medical consultations following. Patient continues on vent with an FI02 of 40% and peep is 5. Chest x-ray today shows a curvilinear edge that is now seen at the bilateral apices that could be projectional artifact and recommended follow-up with improved positioning to exclude trace of new biapical pneumothoraces, COPD, increase in small to moderate bilateral pleural effusions with continued patchy mid and low er lung Covid infiltrates. Patient continues on sedation and staff midwife working on weaning. Patient will open eyes although not follow any commands. Continues on low dose levophed 05/31/2021 Patient is in the MICU. Admitted to hospital due to acute COVID-19 pneumonia. Currently on mechanical ventilator via tracheostomy tube. Assist-control with respiratory rate 30, tidal volume 350, FiO2 50% and PEEP of 5. Remains on propofol and Nimbex. Currently on D5 water at 75 cc/h. Patient is off pressor support. Patient is being continued on antibiotics in the form of meropenem. Sputum cultures growing Romelia and most recently E. coli. ID is on board. Chest x- ray showed bilateral lung infiltrates with suggestion of mild improvement in the left midlung zone. Laboratory data showed WBC 10.6 hemoglobin 9.3 and platelets 579 Sodium 139 potassium 4.0 chloride 101 bicarb is 28 BUN 23 and creatinine 1.46 albumin 2.0 Patient is on hydrocortisone her milligrams IV every 6 hourly and also on mido drine. 06/01/2021 Patient is in MICU. Remains on ventilator via tracheostomy tube. FiO2 40% PEEP of 5. Not requiring any pressor support. Patient is being tried on IV hydrocortisone and midodrine. Currently on tube feedings. Chest x-ray showed bilateral opacities in the some interstitial infiltrates in the midlung zones. Upper lungs remain well aerated. No significant change. No pneumothorax. Patient sputum cultures showed E. coli. Repeat cultures have been negative patient remains on antibiotics in the form of meropenem. ID and pulmonary is on board. Laboratory data showed WC 5.6 hemoglobin 9.3 and platelets 462 sodium 137 potassium 4.0 chloride 110 bicarb is 28 BUN 27 creatinine 1.42 and blood sugar 146 ID nephrology and pulmonary is on board. 06/02/2021 Patient continues to be closely monitored in the ICU with multiple medical consultations following. Patient continues on ventilation support via tracheostomy and FiO2 is 35% and PEEP of 5. Patient attempting weaning trials of sedation and not tolerating well her nursing staff. Chest xray today shows chronic emphsyematous and pulmonary fibrotic changes with persistent small bilateral pleural effusions and lower lung infiltrates and or atelectasis all redemonstrated. Patient had been on IV fluids and will discontinue. Patient will be started on IV lasix daily. Patient tolerating tube feeds and no new episodes of hypoglycemia. Creatinine is 1.33 and will repeat labs and monitor closely. Continued attempts at weaning and slowly weaning off levophed. 06/03/2021 Patient is seen and evaluated continues to be closely monitored in the ICU continued on ventilation support via tracheostomy and FiO2 was increased to 50% with a PEEP of 5. Per nursing staff patient not tolerating weaning off sedation and requiring propofol. Chest x-ray from last night shows pleural effusions with basilar pulmonary infiltrates and mild congestion with mild heart failure it is possible with no change compared to earlier exam from the morning. Patient continues on IV Lasix 40 mg daily. Patient also continues on Meropenem with infectious disease following closely. Patient apparently not tolerating last night and heart rate irregular and on IV amiodarone and cardiology is following. Patient with significant scrotal and penis swelling along with generalized edema of the extremities noted as well. 06/04/2021 Patient is in use to be in the MICU being closely monitored. Patient continues on mechanical ventilation via tracheostomy and FiO2 is 40% with a PEEP of 5 and patient is currently off sedation. Patient is opening eyes and moving although not following commands appropriately per nursing staff. Chest x-ray shows COPD and borderline cardiomegaly with slight worsening in small to moderate layering right and small layering left pleural effusions with adjacent atelectasis and/or consolidation. Pulmonary golf club assembler following closely along with infectious disease and general surgery. Patient continues on meropenem with infectious disease following along with Solu-Cortef and is currently off norepinephrine. Recommend electrolyte replacement per protocol and will repeat labs along with chest x-ray. 06/06/2021. Patient is currently in the intensive care unit. Tolerated trach collar with 40% FiO2 for about 12 hours yesterday. Patient was also placed in the chair via mechanical lift. Patient was placed back on assist control in the night. Patient has been afebrile. Patient is being current on antibiotics, meropenem due to E. coli ESBL pneumonia. Patient has been afebrile. Does not require any pressor support at this time. Otherwise patient is also on hydrocortisone tapering down to 50 mg every 12. Patient still remains confused and could not communicate. Patient remains sinus rhythm. Continued on oral amiodarone and also Eliquis twice daily. Chest x-ray showed similar COPD with mild mid and lower lung infiltrates and small effusions. Patient is tolerating tube feedings. Bilateral lower extremity edema is much improved. Laboratory data showed WBC 5.8 hemoglobin 9.5 platelets 274 sodium 143 potassium 3.6 chloride 104 bicarb is 40 BUN 49 creatinine 1.35 calcium 7.4 and albumin 2.4. 06/07/2021 Patient was transferred to psych care unit. Patient was extubated and decannulated. Patient was having significant respiratory distress morning and was suctioned. Currently requiring high flow oxygen at 8 L. Currently resting in the bed comfortably. Currently hemodynamically stable. Able to tolerate tube feeding. Patient is being current meropenem for ESBL pneumonia E. coli. Currently patient is also on anticoagulation with Eliquis. ID and pulmonary is on board. 06/08/2021 Patient was in the safe care unit. Respiratory status got worse and this morning and patient was having agonal breathing and saturating at 72% which 50 later 100% nonrebreather. Pulmonary was informed and discussed the CODE STATUS with the family. Patient's legal guardian wants him to be placed on medical ventilator again. Patient was placed tracheostomy tube and transfer to MICU. Started on mechanical ventilator with assist control. Chest x-ray showed interval removal of tracheostomy tube. Chronic emphysematous and pulmonary fibrotic changes with persistent small bilateral pleural effusions and bilateral multifocal mid to lower lung opacities consistent with COVID-19 infection ARDS edema demonstrated. Laboratory data showed WBC 8.1 hemoglobin 8.7 platelets 141 sodium 147 potassium 3.5 chloride 101 bicarb is 40 BUN 43 and creatinine 1.33 patient is getting IV hydration with normal saline at 75 cc/h. Currently on hydrocortisone 20 mg daily and 10 mg at bedtime. Maintained on anticoagulation with Eliquis. Continues to be on sinus rhythm. Also on antibiotics in the form of meropenem. ID and pulmonary is on board. Patient was transferred back to ICU today 06/09/2021 Patient is seen today in the ICU and continues on mechanical vent via tracheostomy with an FI02 of 50% and peep is 5. Patient has multiple medical consultations following and is maintained on normal saline and did receive a bolus for hypotension. Nephrology also following as sodium is elevated and being switched to 1/2 normal saline and will continue with tube feedings and free water flushes. Chest xray today shows bilateral peripheral infiltrates persisting although there may be slight interval improvement. Patient continues to not follow commands and is extremely restless at times and continued on haldol and ativan along with dilaudid. Review of systems: Unable to obtain as patient is mechanically intubated and sedated Labs: WBC is 6.8, hemoglobin is 9.2, sodium is 149, potassium 3.8, BUN 42, creatinine 1.30, calcium 8.3 Active Medications Acetaminophen (Acetaminophen Tab 325 Mg Tab) 650 mg PO Q6HR PRN PRN Reason: Mild Pain or Fever > 100.5 Last Admin: 06/07/21 22:35 Dose: 650 mg Documented by: Albuterol/Ipratropium (Ipratropium-Albuterol 3 Ml Neb) 3 ml INHALATION RT-QID PRN PRN Reason: Shortness Of Breath Or Wheezing Last Admin: 06/07/21 19:58 Dose: 3 ml Documented by: Amiodarone HCl (Amiodarone 200 Mg Tab) 200 mg PO BID [facility] Last Admin: 06/09/21 21:03 Dose: 200 mg Documented by: Apixaban (Apixaban 5 Mg Tab) 5 mg PO BID [facility]; Protocol Last Admin: 06/09/21 21:03 Dose: 5 mg Documented by: Atorvastatin Calcium (Atorvastatin 20 Mg Tab) 20 mg PO [facility] Last Admin: 06/09/21 21:03 Dose: 20 mg Documented by: Ferrous Sulfate (Ferrous Sulfate Oral Elixir 300 Mg/5 Ml Cup) 300 mg PO DAILY [facility] Last Admin: 06/09/21 09:28 Dose: 300 mg Documented by: Folic Acid (Folic Acid 1 Mg Tab) 1 mg PO DAILY [facility] Last Admin: 06/09/21 09:33 Dose: 1 mg Documented by: Haloperidol Lactate (Haloperidol Lactate 5 Mg/Ml 1 Ml Vial) 1 mg IVP Q1HR PRN PRN Reason: Agitation or Acute Psychosis Last Admin: 06/09/21 09:43 Dose: 1 mg Documented by: Hydrocortisone (Hydrocortisone 20 Mg Tab) 20 mg PO DAILY [facility] Last Admin: 06/09/21 09:28 Dose: 20 mg Documented by: Hydrocortisone (Hydrocortisone 10 Mg Tab) 10 mg PO [facility] Last Admin: 06/09/21 21:04 Dose: 10 mg Documented by: Hydromorphone HCl (Hydromorphone 1 Mg/Ml 1 Ml Syringe) 1 mg IVP Q3H PRN PRN Reason: Pain Last Admin: 06/09/21 21:05 Dose: 1 mg Documented by: Hydromorphone HCl (Hydromorphone 1 Mg/Ml 1 Ml Syringe) 0.5 mg IVP Q3HR PRN PRN Reason: Pain Last Admin: 06/09/21 18:13 Dose: 0.5 mg Documented by: Meropenem 1 gm/ Sodium (Chloride) 100 mls @ 33.3 mls/hr IVPB Q8H [facility]; Protocol Last Admin: 06/09/21 15:42 Dose: 33.3 mls/hr Documented by: Sodium Chloride (Saline 0.45%) 1,000 mls @ 75 mls/hr IV .[id number] [facility] Last Admin: 06/09/21 12:11 Dose: 75 mls/hr Documented by: Insulin Aspart (Insulin Aspart (Novolog) 100 Unit/Ml Vial) 0 unit SQ Q6H [id number]; Protocol Last Admin: 06/09/21 18:49 Dose: Not Given Documented by: Lorazepam (Lorazepam 2 Mg/Ml Inj) 0.5 mg IV Q3H PRN PRN Reason: Anxiety Last Admin: 06/09/21 18:27 Dose: 0.5 mg Documented by: Lorazepam (Lorazepam 2 Mg/Ml Inj) 1 mg IV Q3H PRN PRN Reason: Anxiety Last Admin: 06/09/21 21:41 Dose: 1 mg Documented by: Midodrine (Midodrine 5 Mg Tab) 10 mg PO AC-TID [facility] Last Admin: 06/09/21 17:54 Dose: 10 mg Documented by: Miscellaneous Information (Potassium Replacement Protocol 1 Each Misc) 1 each MISCELLANE DAILY PRN; Protocol PRN Reason: Per Protocol Miscellaneous Information (Magnesium Replacement Protocol 1 Each Misc) 1 each MISCELLANE DAILY PRN; Protocol PRN Reason: Per Protocol Olanzapine (Olanzapine Odt 5 Mg Tab) 5 mg PO DAILY [facility] Last Admin: 06/09/21 09:29 Dose: 5 mg Documented by: Olanzapine (Olanzapine Odt 10 Mg Tab) 20 mg PO HS [facility] Last Admin: 06/09/21 21:04 Dose: 20 mg Documented by: Pantoprazole Sodium (Pantoprazole 40 Mg/10 Ml Vial) 40 mg IVP DAILY [facility] Last Admin: 06/09/21 09:27 Dose: 40 mg Documented by: Potassium Bicarbonate (Potassium Bicarbonate/Cit Ac 20 Meq Tablet.Eff) 20 meq PO Q12H [facility] Last Admin: 06/09/21 21:02 Dose: 20 meq Documented by: Scopolamine (Scopolamine 1.5mg/72hr Patch) 1 patch TRANSDERM Q72H [facility] Last Admin: 06/08/21 04:39 Dose: 1 patch Documented by: Sodium Chloride (Sodium Chloride 0.9% Flush 10 Ml Syringe) 10 ml IV Q4HR PRN PRN Reason: PICC Line Sodium Chloride (Sodium Chloride 0.9% Flush 10 Ml Syringe) 10 ml IV WEEKLY [facility] Sodium Chloride (Sodium Chloride 0.9% Flush 10 Ml Syringe) 20 ml IV Q4HR PRN PRN Reason: PICC Line Physical Exam: Gen: this is a 70-year-old male currently intubated via tracheostomy. 50% mechanical ventilation with a PEEP of 5 HEENT: Head is atraumatic, normocephalic. Pupils equal, round. Sclerae is anicteric. NECK: Supple. No JVD. No lymphadenopathy. No thyromegaly. LUNGS: Diminished breath sounds bilaterally with coarse rhonchi and crackles noted. No intercostal retractions. HEART: S1, S2 are muffled ABDOMEN: Soft. Bowel sounds are present. No masses. No tenderness. EXTREMITIES: No pedal edema. No calf tenderness. NEUROLOGICAL: Patient is currently restless and receiving haldol, ativan, and dilaudid Assessment: Acute COVID-19 infection with acute COVID-19 bilateral interstitial pneumonia, with acute hypoxic respiratory failure, status post peg tube and tracheostomy placement, FiO2 50% with a PEEP of 5 Acute kidney injury secondary to acute tubular necrosis from septic shock Chronic kidney disease stage III secondary to nephrosclerosis Hypoglycemia, improved Change in mental status, metabolic encephalopathy, multifactorial Falling, gait dysfunction Anemia, normocytic anemia of undetermined significance Hypernatremia from poor oral intake Hyperkalemia secondary to acute kidney injury, resolved Elevated d-dimer history of coronary artery disease history of chronic obstructive pulmonary disease Gastroesophageal reflux disease history of bipolar, schizoaffective disorder and schizophrenia History of nicotine dependence Severe protein calorie malnutrition with a BMI of 19.1 full code Plan: Recommend to continue with current medications and follow along closely with multiple medical consultations. Prognosis remains extremely guarded with multiple complex medical issues noted. Patient is status post peg and trach placement and continues on mechanical vent. Patient is currently off sedation although haldol, ativan, and dilaudid being used frequently and patient is lethargic on exam and unable to follow commands., Restless at times. tube feedings being tolerated. INcreasng free water flushes and IV fluids being changed to 1/2 normal saline for hypernatremia of 149. Nephrology following and will repeat am labs. Recommend continue with current medications and patient has been maintained on IV antibiotics with infectious disease following.. Patient will continue on merrem . Chest x-ray reviewed as mentioned above. Recommend repeat labs in the morning along with chest xray. Code status was addressed with sister and she would like him to continue to be full code. Again due to multiple complex medical issues prognosis is quite guarded. Objective - Vital Signs Vital signs: Vital Signs Temp 99.5 F 06/09/21 08:00 Pulse 70 06/09/21 08:00 Resp 26 H 06/09/21 08:00 BP 99/61 06/09/21 08:00 Pulse Ox 96 06/09/21 08:00 Intake & Output 06/08/21 06/09/21 06/09/21 18:59 06:59 18:59 Intake Total 1270 1691.221 224 Output Total 910 1050 230 Balance 360 641.221 -6 Weight 76.3 kg Intake: IV 741 958 100 0.9 NaCl- 675 825 0 Meropenem 66 133 100 Intake, IV Titration 2.221 Amount propofoL 1,000 mg In 2.221 Empty Bag 1 bag @ Titrate IV .Q0M [facility] Rx#: [id number] Tube Feeding 329 611 94 Other 200 120 30 Output: Urine 910 1050 230 Other: Voiding Method Indwelling Catheter Indwelling Catheter ABP, PAP, CO, CI - Last Documented Arterial Blood Pressure 113/56 - Labs CBC & Chem 7: 06/09/21 08:05 06/09/21 08:05 Labs: Abnormal Lab Results - Last 24 Hours (Table) 06/08/21 06/08/21 06/08/21 Range/Units 09:45 09:52 09:52 RBC 2.71 L (4.30-5.90) m/uL Hgb 8.7 L (13.0-17.5) gm/dL Hct 26.8 L (39.0-53.0) % Plt Count 141 L (150-450) k/uL Lymphocytes # 0.2 L (1.0-4.8) k/uL APTT (22.0-30.0) sec ABG pH (7.35-7.45) ABG pCO2 57 H (35-45) mmHg ABG pO2 81 L (83-108) mmHg ABG HCO3 39 H (21-25) mmol/L ABG Total CO2 41 H (19-24) mmol/L ABG O2 Saturation 97.5 H (94-97) % Sodium 147 H (137-145) mmol/L Chloride 111 H (98-107) mmol/L Carbon Dioxide 40 H (22-30) mmol/L BUN 43 H (9-20) mg/dL Creatinine 1.33 H (0.66-1.25) mg/dL Glucose 104 H (74-99) mg/dL POC Glucose (mg/dL) (75-99) mg/dL Calcium 8.0 L (8.4-10.2) mg/dL Total Protein 4.5 L (6.3-8.2) g/dL Albumin 2.0 L (3.5-5.0) g/dL 06/08/21 06/08/21 06/08/21 Range/Units 09:52 09:58 18:00 RBC (4.30-5.90) m/uL Hgb (13.0-17.5) gm/dL Hct (39.0-53.0) % Plt Count (150-450) k/uL Lymphocytes # (1.0-4.8) k/uL APTT 34.3 H (22.0-30.0) sec ABG pH (7.35-7.45) ABG pCO2 (35-45) mmHg ABG pO2 (83-108) mmHg ABG HCO3 (21-25) mmol/L ABG Total CO2 (19-24) mmol/L ABG O2 Saturation (94-97) % Sodium (137-145) mmol/L Chloride (98-107) mmol/L Carbon Dioxide (22-30) mmol/L BUN (9-20) mg/dL Creatinine (0.66-1.25) mg/dL Glucose (74-99) mg/dL POC Glucose (mg/dL) 101 H 102 H (75-99) mg/dL Calcium (8.4-10.2) mg/dL Total Protein (6.3-8.2) g/dL Albumin (3.5-5.0) g/dL 06/08/21 06/09/21 06/09/21 Range/Units 23:59 05:43 05:54 RBC (4.30-5.90) m/uL Hgb (13.0-17.5) gm/dL Hct (39.0-53.0) % Plt Count (150-450) k/uL Lymphocytes # (1.0-4.8) k/uL APTT (22.0-30.0) sec ABG pH 7.51 H (7.35-7.45) ABG pCO2 47 H (35-45) mmHg ABG pO2 (83-108) mmHg ABG HCO3 38 H (21-25) mmol/L ABG Total CO2 39 H (19-24) mmol/L ABG O2 Saturation 98.1 H (94-97) % Sodium (137-145) mmol/L Chloride (98-107) mmol/L Carbon Dioxide (22-30) mmol/L BUN (9-20) mg/dL Creatinine (0.66-1.25) mg/dL Glucose (74-99) mg/dL POC Glucose (mg/dL) 107 H 115 H (75-99) mg/dL Calcium (8.4-10.2) mg/dL Total Protein (6.3-8.2) g/dL Albumin (3.5-5.0) g/dL 06/09/21 06/09/21 Range/Units 08:05 08:05 RBC 2.83 L (4.30-5.90) m/uL Hgb 9.2 L (13.0-17.5) gm/dL Hct 28.2 L (39.0-53.0) % Plt Count 137 L (150-450) k/uL Lymphocytes # 0.7 L (1.0-4.8) k/uL APTT (22.0-30.0) sec ABG pH (7.35-7.45) ABG pCO2 (35-45) mmHg ABG pO2 (83-108) mmHg ABG HCO3 (21-25) mmol/L ABG Total CO2 (19-24) mmol/L ABG O2 Saturation (94-97) % Sodium 149 H (137-145) mmol/L Chloride 113 H (98-107) mmol/L Carbon Dioxide 39 H (22-30) mmol/L BUN 42 H (9-20) mg/dL Creatinine 1.30 H (0.66-1.25) mg/dL Glucose 113 H (74-99) mg/dL POC Glucose (mg/dL) (75-99) mg/dL Calcium 8.3 L (8.4-10.2) mg/dL Total Protein (6.3-8.2) g/dL Albumin (3.5-5.0) g/dL
[2021-06-10] MEDS: LORazepam 2 MG/ML INJ IV PRN ×4 (02:43→18:05)
[2021-06-10 06:20] LABS: Glucose,Whole Blood 99 mg/dL (75-99)
--- NOTE | 2021-06-10 07:25 | XR ---
EXAMINATION TYPE: XR chest 1V portable DATE OF EXAM: 06/10/2021 CLINICAL HISTORY: Difficulty breathing progress study. TECHNIQUE: 2 AP portable semiupright views of the chest are obtained. COMPARISON: Chest x-ray from one day earlier and older studies. FINDINGS: Stable tracheostomy tube. Stable left-sided PICC line. Background chronic emphysematous and parenchymal change with bilateral multifocal increased opacities and small bilateral pleural effusions are all redemonstrated. Increasing right mid to lower lung opa city noted. Cardiac silhouette size is stable and upper limits of normal. Osseous structures remain d emineralized. Underlying scoliosis is redemonstrated. IMPRESSION: Chronic emphysematous and pulmonary fibrotic changes with persistent small bilateral pleu ral effusions and right greater than left bilateral multifocal mid to lower lung opacities consistent with covid-19 infection and/or ARDS are redemonstrated. Worsening findings right mid to lower lung n oted from one day earlier.
[2021-06-10 07:45] LABS: Calcium 7.4 mg/dL (8.4-10.2); Potassium 3.1 mmol/L (3.5-5.1)
[2021-06-10] MEDS: PANTOPRAZOLE 40 MG/10 ML VIAL IVP SCH (07:46)
[2021-06-10] MEDS: HYDROmorphone 1 MG/ML 1 ML SYRINGE IVP PRN ×3 (07:51→17:49)
[2021-06-10 08:06] VITALS: TEMP 98.2
[2021-06-10] MEDS: AMIODARONE 200 MG TAB PO SCH (08:07)
[2021-06-10] MEDS: MIDODRINE 5 MG TAB PO SCH ×3 (08:07→17:11)
[2021-06-10] MEDS: APIXABAN 5 MG TAB PO SCH (08:07)
[2021-06-10] MEDS: FOLIC ACID 1 MG TAB PO SCH (08:07)
[2021-06-10] MEDS: SODIUM CHLORIDE 0.45% 1,000 ML IV SCH ×2 (08:08→16:15)
[2021-06-10] MEDS: FERROUS SULFATE ORAL ELIXIR 300 MG/5 ML CUP PO SCH (08:08)
[2021-06-10] MEDS: HYDROCORTISONE 20 MG TAB PO SCH (08:09)
[2021-06-10] MEDS: OLANZapine ODT 5 MG TAB PO SCH (08:10)
[2021-06-10] MEDS: POTASSIUM BICARBONATE/CIT AC 20 MEQ TABLET.EFF PO SCH (08:18)
[2021-06-10 08:46] LABS: Basophils % (A) 0 %; Eosinophils # (A) 0.2 k/uL (0-0.7); Eosinophils % (A) 4 %; HCT 22.6 % (39.0-53.0); Hypochromasia Slight; Lymphocytes # (A) 0.5 k/uL (1.0-4.8); Lymphocytes % (A) 12 %; MCH 31.4 pg (25.0-35.0); MCHC 31.9 g/dL (31.0-37.0); MCV 98.5 fL (80.0-100.0); Macrocytosis Slight; Mean Platelet Volume 8.5; Monocytes # (A) 0.2 k/uL (0-1.0); Monocytes % (A) 5 %; Neutrophils # (A) 3.5 k/uL (1.3-7.7); Neutrophils % (A) 77 %; Platelet Count 123 k/uL (150-450); RBC 2.29 m/uL (4.30-5.90); WBC 4.5 k/uL (3.8-10.6)
[2021-06-10 08:54] LABS: HGB 7.2 gm/dL (13.0-17.5)
[2021-06-10] MEDS: POTASSIUM BICARBONATE/CIT AC 20 MEQ TABLET.EFF PO ONE ×2 (10:42→10:48)
[2021-06-10 11:45] LABS: Glucose,Whole Blood 105 mg/dL (75-99)
--- NOTE | 2021-06-10 12:56 | P.PN ---
Subjective Progress Note Date: 06/10/21 Principal diagnosis: Acute hypoxic respiratory failure secondary to COVID-19 pneumonia, and strongly suspect aspiration pneumonia. Morning of 06/08/2021, the patient decompensated. This was essentially related to excess amount of rest or secretions which the patient was unable to cough. Noted the patient was decannulated. He was on a medical floor. He was placed on progressively higher oxygen flow and he became progressively more lethargic and tachypneic using NSAIDs and muscle breathing. Pulse ox dropped and it low 80s. I attended on this patient in the wordpress developer hours and immediately I inserted a extra long #[address] tracheostomy tube in place. This is a coughed tracheostomy tube. Post tracheostomy tube insertion, we've performed repeated suctioning in fact the patient's oxidation obviously improved. Following that, the patient was transferred to the ICU. Initially was placed on a pressure support mode of mechanical ventilation. Nevertheless, he was having prolonged apneas. Currently is on assist control mode at the rate of 14, tidal volume of 350, FiO2 is at 50% with a PEEP of 5. Chest x-ray post insertion of a tracheostomy tube revealed some effusion in lung bases bilaterally along with some bibasilar pulmonary infiltrates. Note that the patient was having copious amount of respiratory secretions and his previous culture was positive for ESBL producing E. coli and the patient is currently on IV meropenem. He is more lethargic. Less responsive on today's evaluation. He has not received any sedation for us. He is receiving enteral feeding for nutritional support and the patient is currently on Nepro at the rate of 47 mL an hour. During those events, he also became slightly hypotensive. Most recent blood pressure 91/53. He is not requiring any pressors. IV fluids are running at the rate of 75 mL an hour. He will be also receiving a bolus of 1 L normal saline. He is afebrile. He remains on Eliquis 5 mg by mouth twice a day via PEG tube Patient was reevaluated today on 06/09/2021, remains in the ICU, patient was dec annulated on 06/07, however the patient had to be sent back to the ICU on 06/08, and he was placed back on mechanical ventilation and a 6.0 tracheostomy tube was placed in his stoma. Patient is on assist control rate of 14,000 volume 350 FiO2 50% PEEP of 5. ABG showed a pO2 of 86 pCO2 47 pH of 7.51. Patient is on IV fluid 0.9 normal saline at 75 mL per hour, he is not requiring any propofol, he is on intermittent sedation, but at this point is not requiring propofol or fentanyl. Chest x-ray continues to show bilateral infiltrates, with slight interval improvement. Patient seems to be about the same, not much of a change in the last 24 hours. He is not following any instructions. And again he is back on ventilatory support after 2 days of decannulation. Patient is being given reevaluated for LTAC placement. Patient has a great urine output, and I recommended that we stop Lasix. His sodium is a bit high and I'm recommending free water via PEG tube. WBC 6.8 hemoglobin is 9.2. Sodium is 149. BUN is 42 creatinine is 1.30. Slightly improved compared to the last few days Reevaluated today on 06/10/2021, patient remains in the ICU, intubated mechanically ventilated, he is on assist control rate of 14 tidal volume 350 FiO2 45% PEEP of 5. Chest x-ray today shows worsening airspace disease in the right lung, ABG showed a pO2 of 86 pCO2 47 pH of 7.51. Patient remains on IV fluid in the form of 0.45 at 75 mL per hour. Remains on enteral feeding using Nepro at 37 mL per hour. Patient was agitated earlier, and he was given Ativan for sedation. Patient remains on Merrem for his underlying pneumonia. Patient had ESBL E. coli in the sputum and his antibiotics are addressed by infectious disease on the case. She count today is 4.5 hemoglobin is 7.2 electrolytes are normal except for slightly low potassium of 3.1 BUN is 33 creatinine 1.10. Patient is not requiring any pressors, remains on Eliquis. Remains on amiodarone. Patient is also on Cortef at 10 mg by mouth daily at bedtime. Objective - Vital Signs Vital signs: Vital Signs Temp 98.2 F 06/10/21 08:00 Pulse 59 L 06/10/21 12:00 Resp 25 H 06/10/21 12:00 BP 93/71 06/10/21 12:00 Pulse Ox 95 06/10/21 12:00 Intake & Output 06/09/21 06/10/21 06/10/21 18:59 06:59 18:59 Intake Total 9471.059 2686 822.9 Output Total 1170 1480 595 Balance 481.936 564 227.9 Weight 76.3 kg 74.8 kg Intake: IV 350 100 324.9 0.9 NaCl- 150 Meropenem 200 100 99.9 Sodium Chloride 0.45% 1, 225 000 ml @ 75 mls/hr IV . [id number] [facility] Rx#:[id number] Intake, IV Titration 594.936 900 150 Amount Sodium Chloride 0.45% 1, 525 900 150 000 ml @ 75 mls/hr IV . [id number] [facility] Rx#:[id number] propofoL 1,000 mg In 69.936 Empty Bag 1 bag @ Titrate IV .Q0M [facility] Rx#: [id number] Tube Feeding 477 444 148 Other 230 600 200 Output: Urine 1170 1480 595 Other: Voiding Method Indwelling Catheter Indwelling Catheter ABP, PAP, CO, CI - Last Documented Arterial Blood Pressure 113/56 - Exam GENERAL EXAM: Revealed a 70-year-old white male, on mechanical ventilation via tracheostomy. HEAD: Normocephalic/atraumatic. Tracheostomy is intact. HEENT: PERRLA, EOMI, anicteric, no neck masses no JVD, moist mucous membranes. CHEST: No chest wall deformity. Symmetrical expansion. LUNGS: Fine crackles at the bases especially at the right base. CVS: Normal S1 and S2, no S3 gallop. guarding or rigidity. EXTREMITIES: No clubbing, Abdomen: Nontender no megaly no rebound. PEG tube is intact. MUSCULOSKELETAL: No deformities. SKIN: No rashes CENTRAL NERVOUS SYSTEM: Arousable, does not follow any instructions. - Labs CBC & Chem 7: 06/10/21 07:05 06/10/21 07:05 Labs: Abnormal Lab Results - Last 24 Hours (Table) 06/09/21 06/09/21 06/10/21 Range/Units 17:25 23:45 07:05 RBC 2.29 L (4.30-5.90) m/uL Hgb 7.2 L D (13.0-17.5) gm/dL Hct 22.6 L (39.0-53.0) % Plt Count 123 L (150-450) k/uL Lymphocytes # 0.5 L (1.0-4.8) k/uL Potassium (3.5-5.1) mmol/L Chloride (98-107) mmol/L Carbon Dioxide (22-30) mmol/L BUN (9-20) mg/dL POC Glucose (mg/dL) 112 H 103 H (75-99) mg/dL Calcium (8.4-10.2) mg/dL 06/10/21 06/10/21 Range/Units 07:05 11:43 RBC (4.30-5.90) m/uL Hgb (13.0-17.5) gm/dL Hct (39.0-53.0) % Plt Count (150-450) k/uL Lymphocytes # (1.0-4.8) k/uL Potassium 3.1 L (3.5-5.1) mmol/L Chloride 109 H (98-107) mmol/L Carbon Dioxide 34 H (22-30) mmol/L BUN 33 H (9-20) mg/dL POC Glucose (mg/dL) 105 H (75-99) mg/dL Calcium 7.4 L (8.4-10.2) mg/dL Assessment and Plan Assessment: #1. Acute hypoxic respiratory failure related to acute COVID-19 pneumonia, and possibility of bacterial infection/aspiration related pneumonia is not entirely excluded. Patient was brought into the emergency department on 05/17/2021 per EMS, patient is a poor historian, reportedly has history of bipolar disease and dementia. Came in primarily for evaluation of altered mental status. Transferred from [place] emergency department for COVID-19 related pneumonia. The patient was taken to the hospital in [place] 4 days prior to this admission and the symptom onset was probably even prior to that. Exact onset of symptoms is not known. Patient was transferred to the intensive care unit on 05/19/2021 for worsening hypoxia, and hypercapnia, and altered mental status, and was intubated on 05/19/2021 weaning from mechanical ventilation and was difficult, nonetheless, patient was extubated on 05/24/2021, patient could not cope with his secretions, and he had a very weak cough, patient had to be reintubated on 05/25/22. Patient is status post tracheostomy and PEG tube placement, he was even be cannulated at one point, but had to be placed back on mechanical ventilation yesterday. And tracheostomy tube was placed back in. Remains intubated and mechanically ventilated. #2. Acute hypercapnic respiratory failure, related to acute aspiration, and possible COVID-19 pneumonia, intubated #3. Hypotension, related to dehydration, and possibility of septic shock is not excluded. Mostly resolved. #4. Altered mental status with worsening from baseline #5. History of dementia and schizoaffective disorder #6. Acute dehydration and hypernatremia, resolved. Patient received free water and D5W. #7. Chronic stage 3 kidney disease, renal functioning has been improving since admission creatinine is 1.10 today. #8. COPD #9. History of coronary artery disease #10. GERD/reflux #11. Hyperlipidemia #12. Acute kidney injury related to ATN, and dehydration, patient continues on IV hydration and continues to receive fluid boluses, creatinine is improving, it is down to 1.1 today. #13. Multiple areas of decubitus ulcer including deep tissue injury on bilateral heels, stage II on buttocks, stage II on bilateral hips and stage I on left elbow, present on admission recommendation: Continue ventilatory support Continue antibiotics as per ID, patient is on Merrem. Continue IV fluids, monitor electrolytes accordingly on a daily basis. Sodium is improving with free water flushes Continue nutritional support. Continue GI and DVT prophylaxis. Continue to monitor the patient in ICU. Patient is being considered for LTAC placement. Critical care time is over 30 minutes Time with Patient: Greater than 30
[2021-06-10] MEDS ORDERED: DEXMEDETOMIDINE/0.9% NACL(PMX) 400 MCG in EMPTY BAG 1 BAG IV SCH (13:15)
--- NOTE | 2021-06-10 13:36 | XR ---
EXAMINATION TYPE: XR chest 1V portable DATE OF EXAM: 06/10/2021 CLINICAL HISTORY: Difficulty breathing and hypoxia progress study. TECHNIQUE: 2 AP portable frontal views of the chest are obtained. COMPARISON: Chest x-ray from earlier today and older studies FINDINGS: Stable tracheostomy tube. Stable left-sided PICC line. Background chronic emphysematous and parenchymal change with bilateral multifocal increased opacities and small bilateral pleural effusions are all redemonstrated. Improving right mid to lower lung opac ity noted. Cardiac silhouette size is stable and upper limits of normal. Osseous structures remain de mineralized. Underlying scoliosis is redemonstrated. IMPRESSION: Chronic emphysematous and pulmonary fibrotic changes with persistent small bilateral pleu ral effusions and bilateral lower lung multifocal mid to lower lung opacities consistent with covid-1 9 infection and/or ARDS are redemonstrated. Findings improved in the right mid to lower lung from [place] today.
--- NOTE | 2021-06-10 14:09 | P.PN ---
Subjective Progress Note Date: 06/10/21 This is a 70-year-old male who was recently admitted with change in mental status and fall and also shortness of breath and acute COVID-19 pneumonia and being closely monitored. Patient was continued on high flow oxygen although respiratory status continued to deteriorate and an A team was called. Patient was brought to the ICU for close monitoring and x-ray showed some bilateral lower lobe pneumonia which appears unchanged compared to recent exam with no obvious heart failure. Patient was placed on mechanical vent and intubated and sedated and is being closely monitored. Multiple medical consultations including pulmonary and infectious disease following closely. 05/20/2021 Patient is seen in follow-up activity is to be closely monitored in the ICU. Blood pressure and heart rate has been extremely variable and patient is maintained on D10 in water along with norepinephrine and will continue. Pulmonary and infectious disease following closely. Patient continues with worsening kidney functions nephrology consulted and patient is being given a liter bolus for hypotension and repeat sodium level ordered. Patient also continues on Zosyn and ID following closely. Patient continues with low blood sugar readings as well and we'll continue D10 and close glucose monitoring. Chest x-ray shows some improvement in bibasilar infiltrates more so on the right and possibly developing small right pleural effusion. 05/21/2021 Patient is seen and evaluated this morning continues to be in the ICU with multiple medical consultations following. Patient is continued on IV antibiotics with ID following. Cultures continue to be negative and WBC is 8.5. Patient did have low grade temp today. Patient continues on mechanical vent and sedated. Chest xray similar to previous exam and will continue to monitor. Prognosis remains guarded. Patient also continued on norepinephrine. 05/22/2021 Patient is seen and evaluated today continues to be on mechanical vent with an FiO2 of 40% PEEP is 5. Patient continuing with weaning trials and assist mode on mechanical vent although patient continues to not follow commands per nursing staff. Per pulmonary card punching machine operator continued attempts at weaning. Chest x-ray shows chronic emphysematous changes and pulmonary fibrosis with moderate bilater al pleural effusions and bilateral multifocal increased opacification consistent with COVID-19 infection are all redemonstrated with no significant change from yesterday. Sputum culture finalized showing Romelia species not albicans, glabrata along with Romelia albicans and infectious disease is following. Patient continues on IV antibiotics in the form of Zosyn. Patient is currently off norepinephrine and receiving Solu-Cortef along with valproic acid and Depakote. Patient is continued on Lovenox for DVT prophylaxis. Patient also continues on D5 in water at 100 mL per hour. Blood gases are improving and pulmonary discussing possible extubation. 05/23/2021 Patient is seen this morning continues to be on mechanical vent with an FiO2 of 40 and a PEEP of 5 with continued weaning trials. Patient is off sedation and does open eyes to verbal stimuli although does not follow commands. Chest x-ray today shows chronic emphysematous and pulmonary fibrotic changes with small size bilateral pleural effusions and bilateral multifocal increased opacification is consistent with COVID-19 infection are again redemonstrated with no significant change from previous. General surgery consulted for possible trach and peg tube placement. 05/24/2021 Patient with spontaneous eye opening during assessment, eyes are tracking, however when asked to squeeze fingers patient unable to do so and did not wiggle toes when asked. He was not responsive to commands or yes or no questions. Continues in the ICU on 5L NC with an oxygen saturation of 91%. He is afebrile, Heart rate is in the 40-50's dropping into the mid 30's. Unclear whether patient is in a heart block, nurse reports HR of 30's seems to be when he is sleeping. EKG will try to be obtained when he is in the 30's. Respirations are 23, blood pressure 135/55. Chest xray today remains unchanged. Possible trach and PEG tube wednesday if needed. Labs today show WBC 7.0, hgb 9.1, D-dimer 0.86, sodium 142, potassium 3.6, BUN 33, creatinine 1.28, glucose in the 130s, calcium 7.8, CRP 1.7, total protein 4.6, albumin 2.0. Multiple consultations. Prognosis remains guarded. 05/25/2021 Throughout the evening patient desaturated and his blood pressure was dropping while on the levophed and his heart rate was increasing and then once he was off the levophed his heart rate was increasing and his blood pressure was dropping. Patient was reintubated with an Fi02 of 60%. Blood gases at the time showed a pCO2 of greater than 120, pH 6.97, pO2 170, total oxygen saturation 98. Oxygen saturations 98%, he is afebrile, pulse rate 43 appears sinus bradycardia on EKG that was obtained midmorning. Blood pressure 135/75. Blood gases have improved with a pH now 7.30, pCO2 57, pO2 57, HCO3 28, total CO2 30 and O2 saturation 87.5. Sodium 140, potassium 3.7, chloride 109, CO2 28, BUN 27, creatinine 1.36, blood glucose 120, calcium 8.1, AST 27, ALT 19, LDH 585, CRP 1.9. Chest x-ray today shows as based consolidation atelectasis and volume loss in the right hemithorax which is slightly compared to exam yesterday. Has pulmonary interstitial edema on the left side without change. Plan is for a PEG, trach tomorrow. Cardiology was consulted and started patient on a dopamine infusion. Patient is on D5 water at 75 mL per hour, levophed infusing, propofol, on IV Zosyn and IV valproic acid. Labs initial white count 13, hemoglobin 10.7, d- dimer 1.84. 05/26/2021 Patient is seen today in follow up in the ICU being closely monitored. Multiple medical consultations following along with general surgery and is scheduled for peg and trach placement today. Tube feedings on hold. Patient continues on mechanical vent and FI02 is 50% peep is 5. Chest xray today shows COPD right greater than left with covid infiltrates and aeration improving now on the right. Potassium is 3.2 and being replaced. Lovenox on hold for the procedure as well. 05/27/2021 Patient is seen in follow-up in the ICU with multiple medical consultations following. Patient is status post PEG and trach placement and will be initiating tube feeds once cleared by surgery. Sputum culture finalized showing E. coli with ESBL and resistance and infectious disease is following. Patient was continued on dopamine along with Levophed and attempting to wean per nursing staff. Patient also continues in D5 water with nephrology following closely. Patient is on IV Zosyn along with nystatin and will continue. Chest x-ray today shows stable portable chest with no evidence of pneumothorax and no change in bibasilar opacities. Patient continues on propofol and FiO2 is 50% with a PEEP of 5. Potassium found a 3.2 and replaced and will repeat labs. 05/28/2021 Patient is seen in follow-up this morning continues to be in the ICU with multiple medical consultations following. Patient is currently continued on mechanical vent via tracheostomy and FiO2 is 40% with a PEEP of 5. Patient is status post peg and trach and surgery following. Patient resumed on lovenox and tube feedings. Tolerating tube feedings thus far. Patient continues on levophed and off dopamine. Patient was on Midodrine and will resume along with his olanzapine and continue to monitor closely. Patient is maintained on Meropenem and ID following closely. Patient also continues on solu-cortef and d5 in water with nephrology following as well. 05/29/2021 Patient is seen and evaluated in follow-up today continues to be in the ICU under close observation with multiple medical consultations following. Patient continues on mechanical ventilation via tracheostomy and FiO2 is 40% and PEEP is 5. Chest xray today shows COPD with continued peripheral and basilar covid infiltrates, similar to slightly worsened from yesterday. Patient continues with sedation holidays to assess mentation although continues to not follow commands appropriately. Patient continues on Levophed as well. IV merrem to continue. 05/30/2021 Patient is seen this morning in the ICU with multiple medical consultations following. Patient continues on vent with an FI02 of 40% and peep is 5. Chest x-ray today shows a curvilinear edge that is now seen at the bilateral apices that could be projectional artifact and recommended follow-up with improved positioning to exclude trace of new biapical pneumothoraces, COPD, increase in small to moderate bilateral pleural effusions with continued patchy mid and low er lung Covid infiltrates. Patient continues on sedation and staff reporter working on weaning. Patient will open eyes although not follow any commands. Continues on low dose levophed 05/31/2021 Patient is in the MICU. Admitted to hospital due to acute COVID-19 pneumonia. Currently on mechanical ventilator via tracheostomy tube. Assist-control with respiratory rate 30, tidal volume 350, FiO2 50% and PEEP of 5. Remains on propofol and Nimbex. Currently on D5 water at 75 cc/h. Patient is off pressor support. Patient is being continued on antibiotics in the form of meropenem. Sputum cultures growing Romelia and most recently E. coli. ID is on board. Chest x- ray showed bilateral lung infiltrates with suggestion of mild improvement in the left midlung zone. Laboratory data showed WBC 10.6 hemoglobin 9.3 and platelets 579 Sodium 139 potassium 4.0 chloride 101 bicarb is 28 BUN 23 and creatinine 1.46 albumin 2.0 Patient is on hydrocortisone her milligrams IV every 6 hourly and also on mido drine. 06/01/2021 Patient is in MICU. Remains on ventilator via tracheostomy tube. FiO2 40% PEEP of 5. Not requiring any pressor support. Patient is being tried on IV hydrocortisone and midodrine. Currently on tube feedings. Chest x-ray showed bilateral opacities in the some interstitial infiltrates in the midlung zones. Upper lungs remain well aerated. No significant change. No pneumothorax. Patient sputum cultures showed E. coli. Repeat cultures have been negative patient remains on antibiotics in the form of meropenem. ID and pulmonary is on board. Laboratory data showed WC 5.6 hemoglobin 9.3 and platelets 462 sodium 137 potassium 4.0 chloride 110 bicarb is 28 BUN 27 creatinine 1.42 and blood sugar 146 ID nephrology and pulmonary is on board. 06/02/2021 Patient continues to be closely monitored in the ICU with multiple medical consultations following. Patient continues on ventilation support via tracheostomy and FiO2 is 35% and PEEP of 5. Patient attempting weaning trials of sedation and not tolerating well her nursing staff. Chest xray today shows chronic emphsyematous and pulmonary fibrotic changes with persistent small bilateral pleural effusions and lower lung infiltrates and or atelectasis all redemonstrated. Patient had been on IV fluids and will discontinue. Patient will be started on IV lasix daily. Patient tolerating tube feeds and no new episodes of hypoglycemia. Creatinine is 1.33 and will repeat labs and monitor closely. Continued attempts at weaning and slowly weaning off levophed. 06/03/2021 Patient is seen and evaluated continues to be closely monitored in the ICU continued on ventilation support via tracheostomy and FiO2 was increased to 50% with a PEEP of 5. Per nursing staff patient not tolerating weaning off sedation and requiring propofol. Chest x-ray from last night shows pleural effusions with basilar pulmonary infiltrates and mild congestion with mild heart failure it is possible with no change compared to earlier exam from the morning. Patient continues on IV Lasix 40 mg daily. Patient also continues on Meropenem with infectious disease following closely. Patient apparently not tolerating last night and heart rate irregular and on IV amiodarone and cardiology is following. Patient with significant scrotal and penis swelling along with generalized edema of the extremities noted as well. 06/04/2021 Patient is in use to be in the MICU being closely monitored. Patient continues on mechanical ventilation via tracheostomy and FiO2 is 40% with a PEEP of 5 and patient is currently off sedation. Patient is opening eyes and moving although not following commands appropriately per nursing staff. Chest x-ray shows COPD and borderline cardiomegaly with slight worsening in small to moderate layering right and small layering left pleural effusions with adjacent atelectasis and/or consolidation. Pulmonary card punching machine operator following closely along with infectious disease and general surgery. Patient continues on meropenem with infectious disease following along with Solu-Cortef and is currently off norepinephrine. Recommend electrolyte replacement per protocol and will repeat labs along with chest x-ray. 06/06/2021. Patient is currently in the intensive care unit. Tolerated trach collar with 40% FiO2 for about 12 hours yesterday. Patient was also placed in the chair via mechanical lift. Patient was placed back on assist control in the night. Patient has been afebrile. Patient is being current on antibiotics, meropenem due to E. coli ESBL pneumonia. Patient has been afebrile. Does not require any pressor support at this time. Otherwise patient is also on hydrocortisone tapering down to 50 mg every 12. Patient still remains confused and could not communicate. Patient remains sinus rhythm. Continued on oral amiodarone and also Eliquis twice daily. Chest x-ray showed similar COPD with mild mid and lower lung infiltrates and small effusions. Patient is tolerating tube feedings. Bilateral lower extremity edema is much improved. Laboratory data showed WBC 5.8 hemoglobin 9.5 platelets 274 sodium 143 potassium 3.6 chloride 104 bicarb is 40 BUN 49 creatinine 1.35 calcium 7.4 and albumin 2.4. 06/07/2021 Patient was transferred to psych care unit. Patient was extubated and decannulated. Patient was having significant respiratory distress morning and was suctioned. Currently requiring high flow oxygen at 8 L. Currently resting in the bed comfortably. Currently hemodynamically stable. Able to tolerate tube feeding. Patient is being current meropenem for ESBL pneumonia E. coli. Currently patient is also on anticoagulation with Eliquis. ID and pulmonary is on board. 06/08/2021 Patient was in the safe care unit. Respiratory status got worse and this morning and patient was having agonal breathing and saturating at 72% which 50 later 100% nonrebreather. Pulmonary was informed and discussed the CODE STATUS with the family. Patient's legal guardian wants him to be placed on medical ventilator again. Patient was placed tracheostomy tube and transfer to MICU. Started on mechanical ventilator with assist control. Chest x-ray showed interval removal of tracheostomy tube. Chronic emphysematous and pulmonary fibrotic changes with persistent small bilateral pleural effusions and bilateral multifocal mid to lower lung opacities consistent with COVID-19 infection ARDS edema demonstrated. Laboratory data showed WBC 8.1 hemoglobin 8.7 platelets 141 sodium 147 potassium 3.5 chloride 101 bicarb is 40 BUN 43 and creatinine 1.33 patient is getting IV hydration with normal saline at 75 cc/h. Currently on hydrocortisone 20 mg daily and 10 mg at bedtime. Maintained on anticoagulation with Eliquis. Continues to be on sinus rhythm. Also on antibiotics in the form of meropenem. ID and pulmonary is on board. Patient was transferred back to ICU today 06/09/2021 Patient is seen today in the ICU and continues on mechanical vent via tracheostomy with an FI02 of 50% and peep is 5. Patient has multiple medical consultations following and is maintained on normal saline and did receive a bolus for hypotension. Nephrology also following as sodium is elevated and being switched to 1/2 normal saline and will continue with tube feedings and free water flushes. Chest xray today shows bilateral peripheral infiltrates persisting although there may be slight interval improvement. Patient continues to not follow commands and is extremely restless at times and continued on haldol and ativan along with dilaudid. 06/10/2021 Patient is seen today continues to be in the ICU and per nursing staff having continued episodes of extreme anxiety and restlessness and calms somewhat after Dilaudid but wears off. Patient remains on mechanical ventilation via tracheostomy. Tolerating tube feedings. Multiple medical consultations following and oxygen saturations are currently in the 80s and FiO2 being increased to 100% although is currently maintained on 45% FiO2 prior to this with a PEEP of 5. Blood pressures have also been marginal and maintained on midodrine. Patient continues on meropenem for sputum cultures finalizing showing E. coli. ID following. Chest x-ray today shows chronic emphysematous and pulmonary fibrotic changes with persistent small bilateral pleural effusions and right greater than left bilateral multifocal mid to lower lung opacification consistent with COVID-19 infection and/or ARDS all redemonstrated with worsening findings in the right mid to lower lungs noted from yesterday. Potassium slightly low at 3.1 and were replaced per protocol. Sodium improved on half- normal saline at 140 with nephrology following. Patient is afebrile. Review of systems: Unable to obtain as patient is mechanically intubated and sedated Labs: WBC is 4.5, hemoglobin is 7.2, plts 123, sodium is 140, potassium 3.1, BUN 33, creatinine 1.10, calcium 7.4 Active Medications Acetaminophen (Acetaminophen Tab 325 Mg Tab) 650 mg PO Q6HR PRN PRN Reason: Mild Pain or Fever > 100.5 Last Admin: 06/07/21 22:35 Dose: 650 mg Documented by: Albuterol/Ipratropium (Ipratropium-Albuterol 3 Ml Neb) 3 ml INHALATION RT-QID PRN PRN Reason: Shortness Of Breath Or Wheezing Last Admin: 06/07/21 19:58 Dose: 3 ml Documented by: Amiodarone HCl (Amiodarone 200 Mg Tab) 200 mg PO BID [facility] Last Admin: 06/10/21 08:07 Dose: 200 mg Documented by: Apixaban (Apixaban 5 Mg Tab) 5 mg PO BID [facility]; Protocol Last Admin: 06/10/21 08:07 Dose: 5 mg Documented by: Atorvastatin Calcium (Atorvastatin 20 Mg Tab) [address] [facility] Last Admin: 06/09/21 21:03 Dose: 20 mg Documented by: Ferrous Sulfate (Ferrous Sulfate Oral Elixir 300 Mg/5 Ml Cup) 300 mg PO DAILY [facility] Last Admin: 06/10/21 08:08 Dose: 300 mg Documented by: Folic Acid (Folic Acid 1 Mg Tab) 1 mg PO DAILY [facility] Last Admin: 06/10/21 08:07 Dose: 1 mg Documented by: Haloperidol Lactate (Haloperidol Lactate 5 Mg/Ml 1 Ml Vial) 1 mg IVP Q1HR PRN PRN Reason: Agitation or Acute Psychosis Last Admin: 06/09/21 09:43 Dose: 1 mg Documented by: Hydrocortisone (Hydrocortisone 20 Mg Tab) 20 mg PO DAILY [facility] Last Admin: 06/10/21 08:09 Dose: 20 mg Documented by: Hydrocortisone (Hydrocortisone 10 Mg Tab) [address] [facility] Last Admin: 06/09/21 21:04 Dose: 10 mg Documented by: Hydromorphone HCl (Hydromorphone 1 Mg/Ml 1 Ml Syringe) 1 mg IVP Q3H PRN PRN Reason: Pain Last Admin: 06/10/21 12:26 Dose: 1 mg Documented by: Hydromorphone HCl (Hydromorphone 1 Mg/Ml 1 Ml Syringe) 0.5 mg IVP Q3HR PRN PRN Reason: Pain Last Admin: 06/09/21 18:13 Dose: 0.5 mg Documented by: Meropenem 1 gm/ Sodium (Chloride) 100 mls @ 33.3 mls/hr IVPB Q8H [facility]; Protocol Last Admin: 06/10/21 07:46 Dose: 33.3 mls/hr Documented by: Sodium Chloride (Saline 0.45%) 1,000 mls @ 75 mls/hr IV [id number] [id number] Last Admin: 06/10/21 08:08 Dose: 75 mls/hr Documented by: Dexmedetomidine HCl 400 mcg/ (IV Solution) 100 mls @ 3.74 mls/hr IV .Q24H [facility]; Protocol Last Admin: 06/10/21 13:07 Dose: 0.2 mcg/kg/hr, 3.74 mls/hr Documented by: Insulin Aspart (Insulin Aspart (Novolog) 100 Unit/Ml Vial) 0 unit SQ Q6H [facility]; Protocol Last Admin: 06/10/21 12:47 Dose: Not Given Documented by: Lorazepam (Lorazepam 2 Mg/Ml Inj) 0.5 mg IV Q3H PRN PRN Reason: Anxiety Last Admin: 06/09/21 18:27 Dose: 0.5 mg Documented by: Lorazepam (Lorazepam 2 Mg/Ml Inj) 1 mg IV Q3H PRN PRN Reason: Anxiety Last Admin: 06/10/21 12:45 Dose: 1 mg Documented by: Midodrine (Midodrine 5 Mg Tab) 10 mg PO AC-TID [facility] Last Admin: 06/10/21 13:09 Dose: 10 mg Documented by: Miscellaneous Information (Potassium Replacement Protocol 1 Each Misc) 1 each MISCELLANE DAILY PRN; Protocol PRN Reason: Per Protocol Miscellaneous Information (Magnesium Replacement Protocol 1 Each Misc) 1 each M ISCELLANE DAILY PRN; Protocol PRN Reason: Per Protocol Olanzapine (Olanzapine Odt 5 Mg Tab) 5 mg PO DAILY [facility] Last Admin: 06/10/21 08:10 Dose: 5 mg Documented by: Olanzapine (Olanzapine Odt 10 Mg Tab) 20 mg PO HS [facility] Last Admin: 06/09/21 21:04 Dose: 20 mg Documented by: Pantoprazole Sodium (Pantoprazole 40 Mg/10 Ml Vial) 40 mg IVP DAILY [facility] Last Admin: 06/10/21 07:46 Dose: 40 mg Documented by: Potassium Bicarbonate (Potassium Bicarbonate/Cit Ac 20 Meq Tablet.Eff) 20 meq PO Q12H [facility] Last Admin: 06/10/21 08:18 Dose: 20 meq Documented by: Scopolamine (Scopolamine 1.5mg/72hr Patch) 1 patch TRANSDERM Q72H [facility] Last Admin: 06/08/21 04:39 Dose: 1 patch Documented by: Sodium Chloride (Sodium Chloride 0.9% Flush 10 Ml Syringe) 10 ml IV Q4HR PRN PRN Reason: PICC Line Sodium Chloride (Sodium Chloride 0.9% Flush 10 Ml Syringe) 10 ml IV WEEKLY [facility] Sodium Chloride (Sodium Chloride 0.9% Flush 10 Ml Syringe) 20 ml IV Q4HR PRN PRN Reason: PICC Line Physical Exam: Gen: this is a 70-year-old male currently intubated via tracheostomy. 100% mechanical ventilation with a PEEP of 5 HEENT: Head is atraumatic, normocephalic. Pupils equal, round. Sclerae is anicteric. NECK: Supple. No JVD. No lymphadenopathy. No thyromegaly. LUNGS: Diminished breath sounds bilaterally with coarse rhonchi and crackles noted. No intercostal retractions. HEART: S1, S2 are muffled ABDOMEN: Soft. Bowel sounds are present. No masses. No tenderness. EXTREMITIES: No pedal edema. No calf tenderness. NEUROLOGICAL: Patient is currently restless and receiving haldol, ativan, and dilaudid Assessment: Acute COVID-19 infection with acute COVID-19 bilateral interstitial pneumonia, with acute hypoxic respiratory failure, status post peg tube and tracheostomy placement, FiO2 100% with a PEEP of 5 Acute kidney injury secondary to acute tubular necrosis from septic shock Chronic kidney disease stage III secondary to nephrosclerosis Hypoglycemia, improved Change in mental status, metabolic encephalopathy, multifactorial Falling, gait dysfunction Anemia, normocytic anemia of undetermined significance Hypernatremia from poor oral intake, improving with half-normal saline and neph rology following Hyperkalemia secondary to acute kidney injury, resolved currently hypokalemia at 3.1 and will replace per protocol Elevated d-dimer history of coronary artery disease history of chronic obstructive pulmonary disease Gastroesophageal reflux disease history of bipolar, schizoaffective disorder and schizophrenia History of nicotine dependence Severe protein calorie malnutrition with a BMI of 19.1 full code Plan: Recommend to continue with current medications and follow along closely with multiple medical consultations. Prognosis remains extremely guarded with multiple complex medical issues noted. Patient is status post peg and trach placement and continues on mechanical vent. Patient having poor oxygen saturations and FiO2 increased to 100% today and continues to be restless and not following commands. Patient is using a combination of Ativan and Dilaudid as needed and remains off propofol. Patient is not following commands and continues to be Restless at times. tube feedings being tolerated. Patient's IV fluids changed to 1/2 normal saline for hypernatremia which is improved today at 140. Nephrology following and will repeat am labs. Recommend continue with current medications and patient has been maintained on IV antibiotics with infectious disease following.. Patient will continue on merrem . Chest x-ray reviewed as mentioned above. Recommend repeat labs in the morning along with chest xray. Again due to multiple complex medical issues prognosis is quite guarded. Objective - Vital Signs Vital signs: Vital Signs Temp 98.2 F 06/10/21 08:00 Pulse 70 06/10/21 08:00 Resp 28 H 06/10/21 08:00 BP 93/49 06/10/21 08:00 Pulse Ox 85 L 06/10/21 08:00 Intake & Output 06/09/21 06/10/21 06/10/21 18:59 06:59 18:59 Intake Total 4252.504 8015 424 Output Total 1170 1480 245 Balance 481.936 564 179 Weight 76.3 kg 74.8 kg Intake: IV 350 100 0.9 NaCl- 150 Meropenem 200 100 Intake, IV Titration 594.936 900 150 Amount Sodium Chloride 0.45% 1, 525 900 150 000 ml @ 75 mls/hr IV . [id number] [facility] Rx#:[id number] propofoL 1,000 mg In 69.936 Empty Bag 1 bag @ Titrate IV .Q0M [facility] Rx#: [id number] Tube Feeding 477 444 74 Other 230 600 200 Output: Urine 1170 1480 245 Other: Voiding Method Indwelling Catheter Indwelling Catheter ABP, PAP, CO, CI - Last Documented Arterial Blood Pressure 113/56 - Labs CBC & Chem 7: 06/10/21 07:05 06/10/21 07:05 Labs: Abnormal Lab Results - Last 24 Hours (Table) 06/09/21 06/09/21 06/09/21 Range/Units 11:59 17:25 23:45 RBC (4.30-5.90) m/uL Hgb (13.0-17.5) gm/dL Hct (39.0-53.0) % Plt Count (150-450) k/uL Lymphocytes # (1.0-4.8) k/uL Potassium (3.5-5.1) mmol/L Chloride (98-107) mmol/L Carbon Dioxide (22-30) mmol/L BUN (9-20) mg/dL POC Glucose (mg/dL) 116 H 112 H 103 H (75-99) mg/dL Calcium (8.4-10.2) mg/dL 06/10/21 06/10/21 Range/Units 07:05 07:05 RBC 2.29 L (4.30-5.90) m/uL Hgb 7.2 L D (13.0-17.5) gm/dL Hct 22.6 L (39.0-53.0) % Plt Count 123 L (150-450) k/uL Lymphocytes # 0.5 L (1.0-4.8) k/uL Potassium 3.1 L (3.5-5.1) mmol/L Chloride 109 H (98-107) mmol/L Carbon Dioxide 34 H (22-30) mmol/L BUN 33 H (9-20) mg/dL POC Glucose (mg/dL) (75-99) mg/dL Calcium 7.4 L (8.4-10.2) mg/dL
--- NOTE | 2021-06-10 14:28 | P.PN ---
Subjective Principal diagnosis: Patient was seen during the earlier part of his admission mostly for acute kidney injury. Renal function had improved with creatinine down to 1.2 mg/dL. Currently staying 1.3 mg/dL. Patient's sodium was 149 yesterday. Patient was started on free water down the feeding tube and the IV fluids were changed to half normal saline. Patient remains on the vent. Good urine output Objective - Vital Signs Vital signs: Vital Signs Temp 98.2 F 06/10/21 08:00 Pulse 62 06/10/21 14:00 Resp 19 06/10/21 14:00 BP 87/56 06/10/21 14:00 Pulse Ox 100 06/10/21 14:00 Intake & Output 06/09/21 06/10/21 06/10/21 18:59 06:59 18:59 Intake Total 4566.390 6811 1246.9 Output Total 1170 1480 795 Balance 481.936 564 451.9 Weight 76.3 kg 74.8 kg Intake: IV 350 100 474.9 0.9 NaCl- 150 Meropenem 200 100 99.9 Sodium Chloride 0.45% 1, 375 000 ml @ 75 mls/hr IV . [id number] [facility] Rx#:[id number] Intake, IV Titration 594.936 900 150 Amount Sodium Chloride 0.45% 1, 525 900 150 000 ml @ 75 mls/hr IV . [id number] [facility] Rx#:[id number] propofoL 1,000 mg In 69.936 Empty Bag 1 bag @ Titrate IV .Q0M [facility] Rx#: [id number] Tube Feeding 477 444 222 Other 230 600 400 Output: Urine 1170 1480 795 Other: Voiding Method Indwelling Catheter Indwelling Catheter ABP, PAP, CO, CI - Last Documented Arterial Blood Pressure 113/56 - Exam Patient is on the vent. Examination lower extremities shows 1+ edema. Abdomen is soft. Examination lungs shows bilateral breath sounds Examination of the heart, S1 and S2 - Labs CBC & Chem 7: 06/10/21 07:05 06/10/21 07:05 Labs: Abnormal Lab Results - Last 24 Hours (Table) 06/09/21 06/09/21 06/10/21 Range/Units 17:25 23:45 07:05 RBC 2.29 L (4.30-5.90) m/uL Hgb 7.2 L D (13.0-17.5) gm/dL Hct 22.6 L (39.0-53.0) % Plt Count 123 L (150-450) k/uL Lymphocytes # 0.5 L (1.0-4.8) k/uL Potassium (3.5-5.1) mmol/L Chloride (98-107) mmol/L Carbon Dioxide (22-30) mmol/L BUN (9-20) mg/dL POC Glucose (mg/dL) 112 H 103 H (75-99) mg/dL Calcium (8.4-10.2) mg/dL 06/10/21 06/10/21 Range/Units 07:05 11:43 RBC (4.30-5.90) m/uL Hgb (13.0-17.5) gm/dL Hct (39.0-53.0) % Plt Count (150-450) k/uL Lymphocytes # (1.0-4.8) k/uL Potassium 3.1 L (3.5-5.1) mmol/L Chloride 109 H (98-107) mmol/L Carbon Dioxide 34 H (22-30) mmol/L BUN 33 H (9-20) mg/dL POC Glucose (mg/dL) 105 H (75-99) mg/dL Calcium 7.4 L (8.4-10.2) mg/dL Assessment and Plan Assessment: #1 acute kidney injury secondary to hemodynamic ATN. Peak creatinine was 2.07. Improved. Creatinine now staying in about 1.1 mg/dL. #2 chronic kidney disease stage III A secondary to nephrosclerosis with a baseline creatinine of 1.2-1.4 MG per DL. #3 COVID-19 pneumonia, patient remains on the vent he is status post trach and PEG #4 hypernatremia associated with free water deficit. Changed saline to half- normal saline. Free water down the feeding tube started as well. #5 hyperkalemia secondary to acute kidney injury, resolved Plan: 1. Continue half-normal saline. 2. Continue with the free water down the feeding tube as well. 3. Replace potassium 4. Repeat labs in a.m.
--- NOTE | 2021-06-10 14:43 | P.DS ---
Providers Date of admission: 05/17/21 16:48 Expected date of discharge: 06/10/21 Attending physician: Milena Samaniego Consults: 05/17/21 16:48 Consult Physician Routine Consulting Provider: Michael Albert Consult Reason/Comments: covid Do you want consulting provider notified?: Yes 05/17/21 19:26 Consult Physician Routine Consulting Provider: Zofia Yoder Consult Reason/Comments: coivd. remdesivir? Do you want consulting provider notified?: Yes 05/19/21 16:11 Consult Physician Urgent Consulting Provider: Ismael Arias Consult Reason/Comments: hyperkalemia, hypernatremia, ARF, covid Do you want consulting provider notified?: Yes 05/23/21 13:29 Consult Physician Routine Consulting Provider: Cristobal Moscoso Consult Reason/Comments: COVID 19, resp failure, trach and peg Do you want consulting provider notified?: Yes Primary care physician: Stated None Hospital Course: Final diagnosis Acute COVID-19 infection with acute COVID-19 bilateral interstitial pneumonia, right more than left with acute hypoxic respiratory failure, now requiring mechanical ventilation with extubation on 05/24/2021, and re-intubation on 05/25/2021 status post peg tube and tracheostomy placement, FiO2 45% with a PEEP of 8 Acute kidney injury secondary to acute tubular necrosis from septic shock, improving Chronic kidney disease stage III secondary to nephrosclerosis Hypoglycemia, improved Change in mental status, metabolic encephalopathy, multifactorial Falling, gait dysfunction Anemia, normocytic anemia of undetermined significance Hypernatremia from poor oral intake Hyperkalemia secondary to acute kidney injury, resolved Elevated d-dimer history of coronary artery disease history of chronic obstructive pulmonary disease Gastroesophageal reflux disease history of bipolar, schizoaffective disorder and schizophrenia History of nicotine dependence Severe protein calorie malnutrition with a BMI of 19.1 No code Discharge disposition Patient is being discharged in a stable condition with guarded prognosis to [facility]. Patient will follow-up with primary care provider in the outpatient setting upon discharge. Patient is to continue with IV meropenem every 8 hours for the next 5 days. Total time taken is greater than 35 minutes. Hospital course This is a 70-year-old male who was recently admitted with changes in mental status and fall and worsening shortness of breath along with acute COVID-19 pneumonia and was being closely monitored. Patient respiratory status continued to deteriorate and was initially on BiPAP briefly and was transferred to the ICU and placed on mechanical ventilation and intubation with sedation. Multiple medical consultations were following closely throughout hospitalization. Patient had prolonged hospitalization with multiple attempts at weaning although unsuccessful from the vent and had tracheostomy and PEG tube placed. Patient is currently on FiO2 of 45% with a PEEP of 8 via tracheostomy. Patient's blood cultures remain negative although sputum cultures grew Romelia species not albicans along with Romelia albicans and E. coli and is maintained on IV meropenem with infectious disease following closely. ID recommends continuing IV meropenem for another 5 days. Patient is also maintained on Solu-Cortef and recommend continue. Patient's sodium was elevated yesterday and maintained on half normal saline and improved at 140 and patient has been off Lasix for 5 days now. Patient has swelling of the scrotum and testes with slight improvement. Social work following on placement and patient has been accepted at [facility] and will be discharged today. Patient is off all sedation and occasionally receiving Dilaudid and Ativan for agitation what seems to help. Patient to continue with tube feedings as mentioned below. Continue with local wound care to the sacral area. Patient's CODE STATUS was changed back to full code per sister and awaiting for documentation stating she is to make decisions. No other family members present. Patient will be discharged to [facility] today with guarded prognosis. Physical Exam: Gen: this is a 70-year-old male currently maintained on FiO2 of 45% mechanical ventilation with a PEEP of 8 HEENT: Head is atraumatic, normocephalic. Pupils equal, round. Sclerae is anicteric. NECK: Supple. No JVD. No lymphadenopathy. No thyromegaly. LUNGS: Diminished breath sounds bilaterally with coarse rhonchi and crackles noted. No intercostal retractions. HEART: S1, S2 are muffled ABDOMEN: Soft. Bowel sounds are present. No masses. No tenderness. Continued testicular and penis swelling. Although improving on today's exam EXTREMITIES: No pedal edema. No calf tenderness. NEUROLOGICAL: Patient is currently sedated with Dilaudid and Ativan and unable to respond or follow commands Please refer to medication reconciliation sheet for a list of medications. Patient Condition at Discharge: Critical Plan - Discharge Summary Discharge Rx Participant: No New Discharge Prescriptions: New Amiodarone [Cordarone] 200 mg PO BID tab Meropenem [Merrem] 1 gm IVPB Q8H 5 Days #15 each Nystatin 100,000 Unit/ml Susp [Mycostatin Oral Susp] 500,000 unit PO QID ml Albuterol Inhaler [Ventolin Hfa Inhaler] 2 puff INHALATION RT-QID gm OLANZapine ODT [ZyPREXA Zydis] 5 mg PO DAILY tab Hydrocortisone [Cortef] 10 mg PO HS tab INSULIN ASPART (NovoLOG) [NovoLOG (formulary)] 0 unit SQ Q6H ml Scopolamine 1.5MG/72Hr Patch [TransDerm Scop] 1 patch TRANSDERM Q72H patch Apixaban [Eliquis] 5 mg PO BID tab Ferrous Sulfate Oral Elixir [Feosol Liquid] 300 mg PO DAILY ml Folic Acid 1 mg PO DAILY tab Potassium Bicarbonate/Cit AC [K-Lyte] 20 meq PO DAILY #60 tab Pantoprazole Sodium [Protonix] 40 mg PO DAILY #30 tab Acetaminophen Tab [Tylenol] 650 mg PO Q6HR PRN tab PRN Reason: Mild Pain Or Fever > 100.5 OLANZapine ODT [ZyPREXA Zydis] 20 mg PO HS tab Hydrocortisone [Cortef] 20 mg PO DAILY tab Ipratropium-Albuterol Nebulize [Duoneb 0.5 mg-3 mg/3 ml Soln] 3 ml INHALATION RT-QID PRN ml PRN Reason: Shortness Of Breath Or Wheezing Continue Midodrine HCl [ProAmatine] 10 mg PO TID Atorvastatin Calcium [Lipitor] 20 mg PO HS Discontinued Clopidogrel [Plavix] 75 mg PO DAILY Divalproex ER [Depakote ER] 500 mg PO BID Folic Acid 1 mg PO DAILY #30 tab OLANZapine [OLANZapine Odt] 20 mg PO HS predniSONE [Deltasone] 20 mg PO DAILY OLANZapine [OLANZapine Odt] 5 mg PO DAILY Ferrous Sulfate [Iron (65 MG Elemental)] 325 mg PO DAILY Discharge Medication List Atorvastatin Calcium [Lipitor] 20 mg PO HS 05/29/20 [History] Midodrine HCl [ProAmatine] 10 mg PO TID 05/29/20 [History] Acetaminophen Tab [Tylenol] 650 mg PO Q6HR PRN tab 06/05/21 [Rx] Albuterol Inhaler [Ventolin Hfa Inhaler] 2 puff INHALATION RT-QID gm 06/05/21 [Rx] Amiodarone [Cordarone] 200 mg PO BID tab 06/05/21 [Rx] Apixaban [Eliquis] 5 mg PO BID tab 06/05/21 [Rx] Ferrous Sulfate Oral Elixir [Feosol Liquid] 300 mg PO DAILY ml 06/05/21 [Rx] Folic Acid 1 mg PO DAILY tab 06/05/21 [Rx] Meropenem [Merrem] 1 gm IVPB Q8H 5 Days #15 each 06/05/21 [Rx] Nystatin 100,000 Unit/ml Susp [Mycostatin Oral Susp] 500,000 unit PO QID ml 06/05/21 [Rx] OLANZapine ODT [ZyPREXA Zydis] 5 mg PO DAILY tab 06/05/21 [Rx] OLANZapine ODT [ZyPREXA Zydis] 20 mg PO HS tab 06/05/21 [Rx] Pantoprazole Sodium [Protonix] 40 mg PO DAILY #30 tab 06/05/21 [Rx] Potassium Bicarbonate/Cit AC [K-Lyte] 20 meq PO DAILY #60 tab 06/05/21 [Rx] Hydrocortisone [Cortef] 10 mg PO HS tab 06/10/21 [Rx] Hydrocortisone [Cortef] 20 mg PO DAILY tab 06/10/21 [Rx] INSULIN ASPART (NovoLOG) [NovoLOG (formulary)] 0 unit SQ Q6H ml 06/10/21 [Rx] Ipratropium-Albuterol Nebulize [Duoneb 0.5 mg-3 mg/3 ml Soln] 3 ml INHALATION RT-QID PRN ml 06/10/21 [Rx] Scopolamine 1.5MG/72Hr Patch [TransDerm Scop] 1 patch TRANSDERM Q72H patch 06/10/21 [Rx] Follow up Appointment(s)/Referral(s): None,Stated [Primary Care Provider] - 1-2 days Activity/Diet/Wound Care/Special Instructions: Patient is going to [facility] Activity as tolerated Patient is to be continued on IV meropenem every 8 hours for the next 5 days Patient is maintained on tube feedings in the form of nephro with continuous infusion and goal rate is 37 and a receive 888 mL per day with continued free water boluses of 200 mL every 4 hours and monitor closely of residuals Recommend close monitoring of labs daily Recommend Accu-Cheks before meals and at bedtime and continue with sliding scale NovoLog sliding scale 0-150 equals 0 units 151-200 equals 2 units 201-250 equals 4 units 251-300 equals 6 units 301-350 equals 8 units 351-400 equals 10 units Please notify provider if blood sugar is 400 or above Patient is continued on mechanical ventilation via tracheostomy with an FiO2 of 45% and PEEP is 8 Discharge Disposition: [facility]
--- NOTE | 2021-06-10 14:47 | P.PN ---
Subjective Progress Note Date: 06/10/21 CHIEF COMPLAINT: COVID-19 pneumonia HISTORY OF PRESENT ILLNESS: Patient is in the ICU on mechanical ventilation. Patient is status post tracheostomy and PEG tube placement on 05/26/21. Patient is scheduled for possible transfer to [facility] today. PHYSICAL EXAM: VITAL SIGNS: Reviewed. GENERAL: no acute distress. HEENT: Moist buccal mucosa. Head is atraumatic, normocephalic. Tracheostomy site clean dry and intact ABDOMEN: Soft. Nondistended. PEG tube site clean dry and intact ASSESSMENT: 1. Acute hypoxic respiratory failure secondary to COVID-19 pneumonia with mechanical ventilation and difficulty weaning from the vent status post tracheostomy placement 2. Severe protein calorie malnutrition status post PEG tube placement PLAN: -Continue ICU management and supportive care -Continue tube feedings Physician Specimen Preparation Assistant note has been reviewed by physician. Signing provider agrees with the documented findings, assessment, and plan of care. Objective - Vital Signs Vital signs: Vital Signs Temp 98.2 F 06/10/21 08:00 Pulse 62 06/10/21 14:00 Resp 19 06/10/21 14:00 BP 87/56 06/10/21 14:00 Pulse Ox 100 06/10/21 14:00 Intake & Output 06/09/21 06/10/21 06/10/21 18:59 06:59 18:59 Intake Total 8061.436 2413 1246.9 Output Total 1170 1480 795 Balance 481.936 564 451.9 Weight 76.3 kg 74.8 kg Intake: IV 350 100 474.9 0.9 NaCl- 150 Meropenem 200 100 99.9 Sodium Chloride 0.45% 1, 375 000 ml @ 75 mls/hr IV . [id number] [facility] Rx#:[id number] Intake, IV Titration 594.936 900 150 Amount Sodium Chloride 0.45% 1, 525 900 150 000 ml @ 75 mls/hr IV . [id number] [facility] Rx#:[id number] propofoL 1,000 mg In 69.936 Empty Bag 1 bag @ Titrate IV .Q0M [facility] Rx#: [id number] Tube Feeding 477 444 222 Other 230 600 400 Output: Urine 1170 1480 795 Other: Voiding Method Indwelling Catheter Indwelling Catheter ABP, PAP, CO, CI - Last Documented Arterial Blood Pressure 113/56 - Labs CBC & Chem 7: 06/10/21 07:05 06/10/21 07:05 Labs: Abnormal Lab Results - Last 24 Hours (Table) 06/09/21 06/09/21 06/10/21 Range/Units 17:25 23:45 07:05 RBC 2.29 L (4.30-5.90) m/uL Hgb 7.2 L D (13.0-17.5) gm/dL Hct 22.6 L (39.0-53.0) % Plt Count 123 L (150-450) k/uL Lymphocytes # 0.5 L (1.0-4.8) k/uL Potassium (3.5-5.1) mmol/L Chloride (98-107) mmol/L Carbon Dioxide (22-30) mmol/L BUN (9-20) mg/dL POC Glucose (mg/dL) 112 H 103 H (75-99) mg/dL Calcium (8.4-10.2) mg/dL 06/10/21 06/10/21 Range/Units 07:05 11:43 RBC (4.30-5.90) m/uL Hgb (13.0-17.5) gm/dL Hct (39.0-53.0) % Plt Count (150-450) k/uL Lymphocytes # (1.0-4.8) k/uL Potassium 3.1 L (3.5-5.1) mmol/L Chloride 109 H (98-107) mmol/L Carbon Dioxide 34 H (22-30) mmol/L BUN 33 H (9-20) mg/dL POC Glucose (mg/dL) 105 H (75-99) mg/dL Calcium 7.4 L (8.4-10.2) mg/dL
[2021-06-10 18:20] LABS: Glucose,Whole Blood 101 mg/dL (75-99)
[2021-06-10 20:15] VITALS: BP 101/62; PULSE 50; RESP 21
== END 2021-06-10 20:18 | DRG 4 ==
LOC: EC 13:03 → EEVIPCON 16:48 → 4SSUR 16:48 → 2SICU 05-19 05:26 → 4SSUR 06-06 18:30 → 2SICU 06-08 08:29
PROVIDERS: ADMIT Hospitalist; ATTEND Hospitalist
PROC: 5A1955Z Respiratory Ventilation, Greater than 96 Consecutive Hours (ICD-10-PCS; 2021-05-19)
PROC: 0BH17EZ Insertion of Endotracheal Airway into Trachea, Via Natural or Artificial Opening (ICD-10-PCS; 2021-05-19)
PROC: 4A133J1 Monitoring of Arterial Pulse, Peripheral, Percutaneous Approach (ICD-10-PCS; 2021-05-19)
PROC: 02HV33Z Insertion of Infusion Device into Superior Vena Cava, Percutaneous Approach (ICD-10-PCS; 2021-05-19)
PROC: 4A133B1 Monitoring of Arterial Pressure, Peripheral, Percutaneous Approach (ICD-10-PCS; 2021-05-19)
PROC: 03HY32Z Insertion of Monitoring Device into Upper Artery, Percutaneous Approach (ICD-10-PCS; 2021-05-19)
PROC: 0D9670Z Drainage of Stomach with Drainage Device, Via Natural or Artificial Opening (ICD-10-PCS; 2021-05-19)
PROC: 0B110F4 Bypass Trachea to Cutaneous with Tracheostomy Device, Open Approach (ICD-10-PCS; principal; 2021-05-26 07:30)
PROC: 3E0G76Z Introduction of Nutritional Substance into Upper GI, Via Natural or Artificial Opening (ICD-10-PCS; principal; 2021-05-26 07:30)
PROC: 0DH63UZ Insertion of Feeding Device into Stomach, Percutaneous Approach (ICD-10-PCS; principal; 2021-05-26 07:30)
PROC: 5A1955Z Respiratory Ventilation, Greater than 96 Consecutive Hours (ICD-10-PCS; principal; 2021-05-26 07:30)
PROC: 3E043XZ Introduction of Vasopressor into Central Vein, Percutaneous Approach (ICD-10-PCS; 2021-06-04)
PROC: 02HV33Z Insertion of Infusion Device into Superior Vena Cava, Percutaneous Approach (ICD-10-PCS; 2021-06-04)
PROC: 5A09357 Assistance with Respiratory Ventilation, Less than 24 Consecutive Hours, Continuous Positive Airway Pressure (ICD-10-PCS; 2021-06-04)
PROC: 5A1945Z Respiratory Ventilation, 24-96 Consecutive Hours (ICD-10-PCS; 2021-06-04)
PROC: 5A0945A Assistance with Respiratory Ventilation, 24-96 Consecutive Hours, High Flow/Velocity Cannula (ICD-10-PCS; 2021-06-07)
PROC: 5A1945Z Respiratory Ventilation, 24-96 Consecutive Hours (ICD-10-PCS; 2021-06-08)
PROC: 0BH17EZ Insertion of Endotracheal Airway into Trachea, Via Natural or Artificial Opening (ICD-10-PCS; 2021-06-08)
DX: U07.1 COVID-19 (principal); A41.89 Other specified sepsis; R65.21 Severe sepsis with septic shock; N17.0 Acute kidney failure with tubular necrosis; E43 Unspecified severe protein-calorie malnutrition; G93.41 Metabolic encephalopathy; J12.82 Pneumonia due to coronavirus disease 2019; J69.0 Pneumonitis due to inhalation of food and vomit; J15.5 Pneumonia due to Escherichia coli; J80 Acute respiratory distress syndrome; Z68.1 Body mass index [BMI] 19.9 or less, adult; E87.0 Hyperosmolality and hypernatremia; J98.11 Atelectasis; R64 Cachexia; Z16.12 Extended spectrum beta lactamase (ESBL) resistance; L89.212 Pressure ulcer of right hip, stage 2; L89.312 Pressure ulcer of right buttock, stage 2; L89.222 Pressure ulcer of left hip, stage 2; F25.9 Schizoaffective disorder, unspecified; I50.9 Heart failure, unspecified; L89.322 Pressure ulcer of left buttock, stage 2; F03.90 Unspecified dementia, unspecified severity, without behavioral disturbance, psychotic disturbance, mood disturbance, and anxiety; I12.9 Hypertensive chronic kidney disease with stage 1 through stage 4 chronic kidney disease, or unspecified chronic kidney disease; F17.210 Nicotine dependence, cigarettes, uncomplicated; L89.629 Pressure ulcer of left heel, unspecified stage; F31.9 Bipolar disorder, unspecified; D69.6 Thrombocytopenia, unspecified; N18.31 Chronic kidney disease, stage 3a; L89.619 Pressure ulcer of right heel, unspecified stage; J43.9 Emphysema, unspecified; L89.021 Pressure ulcer of left elbow, stage 1; J84.10 Pulmonary fibrosis, unspecified; D63.1 Anemia in chronic kidney disease; E16.2 Hypoglycemia, unspecified; Z66 Do not resuscitate; E78.5 Hyperlipidemia, unspecified; E86.0 Dehydration; E87.5 Hyperkalemia; E87.6 Hypokalemia; R68.0 Hypothermia, not associated with low environmental temperature; F41.9 Anxiety disorder, unspecified; R45.1 Restlessness and agitation; I25.10 Atherosclerotic heart disease of native coronary artery without angina pectoris; I48.91 Unspecified atrial fibrillation; K21.9 Gastro-esophageal reflux disease without esophagitis; R47.89 Other speech disturbances; R26.9 Unspecified abnormalities of gait and mobility; R00.1 Bradycardia, unspecified; N48.89 Other specified disorders of penis; N50.89 Other specified disorders of the male genital organs; Z91.81 History of falling; Z79.02 Long term (current) use of antithrombotics/antiplatelets; Z79.899 Other long term (current) drug therapy; Z71.3 Dietary counseling and surveillance; Z87.01 Personal history of pneumonia (recurrent); Z79.52 Long term (current) use of systemic steroids
CPT/HCPCS: 36415; 36573; 36600; 43246; 70450; 71045; 72125; 80048; 80053; 81001; 82272; 82533; 82805; 83605; 83615; 83735; 83880; 84100; 84132; 84145; 84295; 84439; 84443; 84481; 84484; 85025; 85027; 85379; 85610; 85730; 86140; 86704; 86706; 87040; 87070; 87077; 87186; 87205; 87340; 87635; 93005; 93306; 94002; 94003; 94640; 94760; 99291